=== PATIENT | female | born 1965 | race Caucasian/White ===

== ENCOUNTER → 2016-03-11 | Outpatient (CLI) | payer MEDICARE, OTHER ==
--- NOTE | 2016-03-11 14:55 | US ---
EXAMINATION TYPE: US kidneys/renal and bladder DATE OF EXAM: 03/11/2016 1:40 PM COMPARISON: 08/07/2015 CLINICAL HISTORY: US. History of hydronephrosis EXAM MEASUREMENTS: Right Kidney: 10.6 x 4.9 x 4.5cm Left Kidney: 10.7 x 4.7 x 4.0cm Post Void Residual Volume: 270.4ml Right Kidney: moderate hydronephrosis Left Kidney: moderate hydronephrosis Bladder: irregular posterior wall as noted on prior exam Bilateral Jets seen: no Normal Post Void Residual: no IMPRESSION: 1. Moderate bilateral hydronephrosis improved relative to prior study. 2. Urinary bladder wall thickening. Normal Values: Renal Length = 9 - 12cm Bladder Wall: < 0.3cm
== END | disposition home or self-care (01) ==
LOC: RADUSWWP 13:12
PROVIDERS: ATTEND Urology
DX: N13.30 Unspecified hydronephrosis (principal); N32.89 Other specified disorders of bladder
CPT/HCPCS: 76770

== ENCOUNTER → 2016-09-08 | Outpatient (CLI) | payer MEDICARE, OTHER ==
--- NOTE | 2016-09-08 12:02 | US ---
EXAMINATION TYPE: US kidneys/renal and bladder DATE OF EXAM: 09/08/2016 COMPARISON: Recent renal ultrasound March 11, 2016 CLINICAL HISTORY: N13.30 HYDRONEPHROSIS. History of hydronephrosis EXAM MEASUREMENTS: Right Kidney: 11.0 x 5.4 x 4.8 cm Left Kidney: 10.8 x 5.2 x 4.4 cm Post Void Residual Volume: 278.3 mL Right Kidney: moderate hydronephrosis Left Kidney: moderate hydronephrosis Bladder: irregular posterior wall Bilateral Jets seen: yes Normal Post Void Residual: no There is persistent moderate right-sided pyelocaliectasis. There is persistent moderate left-sided p yelocaliectasis. No masses are identified on images saved. The urinary bladder is anechoic. Wall thi ckness is mildly thickened with irregularity redemonstrated. Bilateral ureteral jets are seen. After voiding significant amount of urine remains present, calculated volume is near 300 cc. IMPRESSION: Overall stable findings persistent moderate bilateral hydronephrosis and abnormal bladder wall and po st void residual. No significant change.
== END ==
LOC: RADUSWWP 11:26
PROVIDERS: ATTEND Surgery
DX: N13.30 Unspecified hydronephrosis (principal)
CPT/HCPCS: 76770

== ENCOUNTER → 2017-01-02 | Outpatient (CLI) | payer MEDICARE, OTHER ==
--- NOTE | 2017-01-04 10:16 | MM ---
Reason for exam: screening (asymptomatic). Last mammogram was performed 1 year ago. History: Patient is postmenopausal. Benign US biopsy breast VAD LT of the left breast, January 28, 2015. Benign US RT VAD breast biopsy of the right breast, May 03, 2011. Benign US LT VAD breast biopsy of the left breast, May 03, 2011. Reductions of both breasts, 1996. Took hormonal contraceptives for 6 months beginning at age 15. Physical Findings: A clinical breast exam by your physician is recommended on an annual basis and results should be correlated with mammographic findings. MG 3D Screening Mammo W/Cad Bilateral CC and MLO view(s) were taken. Prior study comparison: January 01, 2016, bilateral MG screening mammo w CAD. August 07, 2015, left breast MG 3d diag mammo w/cad LT. The breast tissue is heterogeneously dense. This may lower the sensitivity of mammography. Previous mammotome biopsy in the right breast and in the left breast x 2. There is chronic nodularity bilaterally. No significant changes when compared with prior studies. ASSESSMENT: Benign, BI-RAD 2 RECOMMENDATION: Routine screening mammogram of both breasts in 1 year.
== END | disposition home or self-care (01) ==
LOC: RADMAMWWP 09:49
PROVIDERS: ATTEND Family Medicine
DX: Z12.31 Encounter for screening mammogram for malignant neoplasm of breast (principal)
CPT/HCPCS: 77063; G0202

== ENCOUNTER 2017-03-14 07:10 | Day surgery (SDC) | payer MEDICARE, OTHER ==
[2017-03-13 09:13] VITALS: BMI 29.6
[~2017-03-14 07:10] MED LIST: LACTATED RINGERS 1,000 ML IV SCH
[2017-03-14 08:01] VITALS: TEMP 98.3
[2017-03-14] MEDS ORDERED: LIDOCAINE 1% 20 ML VIAL (10MG/ML) FOR IV START INTRADERMA ONE (08:08)
[2017-03-14] MEDS ORDERED: PROPOFOL 10 MG/ML 20 ML VIAL IV ONE (08:10)
[2017-03-14] MEDS ORDERED: LIDOCAINE 1% INJ 10MG/ML (20 ML MDV) ONE (08:10)
[2017-03-14] MEDS ORDERED: MIDAZOLAM 2 MG/2 ML VIAL ONE (08:10)
[2017-03-14 08:14] LABS: Glucose,Whole Blood 119 mg/dL (75-99)
--- NOTE | 2017-03-14 08:30 | P.OP ---
Date of Procedure: 03/14/17 Preoperative Diagnosis: Prior history of sigmoid polyps, last scoped 2013 Postoperative Diagnosis: Extremely poor bowel prep with formed and solid stool Procedure(s) Performed: Attempted colonoscopy Anesthesia: MAC Surgeon: Chantal Quigley Estimated Blood Loss (ml): 0 IV fluids (ml): 100 Pathology: none sent Condition: stable Disposition: PACU Indications for Procedure: Patient history of sigmoid polyps Operative Findings: Very poor bowel prep with formed stool and stool coating randolph of bowel Description of Procedure: Patient was taken to the endoscopy suite and placed in the left lateral decubitus position. Following sedation a rectal examination was performed. Stool was noted to be present on the examining finger. An attempt was made to pass the scope into the rectum but there was stool present. I was able to manipulate the scope to approximately 20 cm however there was stool coating the bowel wall as well as formed stool which I could not navigate the scope around. Attempts were made to irrigate this area and there were large amounts of formed stool present. Therefore was determined that the mucosa could not be well evaluated in the procedure should be terminated and rescheduled. Impression/plan: 1. Prior history of sigmoid colon polyps 2. Extremely poor bowel prep Plan: 1. patient needs to have repeat prep prior to colonoscopy
--- NOTE | 2017-03-14 08:31 | P.DS ---
Providers Attending physician: Chantal Quigley Primary care physician: Gamal Stuart Plan - Discharge Summary New Discharge Prescriptions: No Action Escitalopram [Lexapro] 10 mg PO DAILY #15 tab fluPHENAZine DECANOATE [Prolixin Decanoate] 125 mg IM Q30D fluvoxaMINE MALEATE [fluvoxaMINE MALEATE] 50 mg PO DAILY LORazepam [Ativan] 0.5 mg PO DAILY Multivitamins, Thera [Multivitamin (formulary)] 1 tab PO DAILY cloZAPine [Clozaril] 300 mg PO HS Tamsulosin [Flomax] 0.4 mg PO DAILY Discharge Medication List Escitalopram [Lexapro] 10 mg PO DAILY #15 tab 02/23/15 [Rx] LORazepam [Ativan] 0.5 mg PO DAILY 01/21/16 [History] Multivitamins, Thera [Multivitamin (formulary)] 1 tab PO DAILY 01/21/16 [History ] cloZAPine [Clozaril] 300 mg PO HS 01/21/16 [History] fluPHENAZine DECANOATE [Prolixin Decanoate] 125 mg IM Q30D 01/21/16 [History] fluvoxaMINE MALEATE [fluvoxaMINE MALEATE] 50 mg PO DAILY 01/21/16 [History] Tamsulosin [Flomax] 0.4 mg PO DAILY 03/13/17 [History] Activity/Diet/Wound Care/Special Instructions: Do not drive today Patient is to redo her bowel prep and be rescheduled for colonoscopy Discharge Disposition: HOME SELF-CARE
[2017-03-14 09:01] VITALS: BP 139/95; PULSE 101; RESP 18
== END 2017-03-14 09:19 | disposition home or self-care (01) ==
LOC: ORWHC2ENDO 07:10
PROVIDERS: ATTEND Surgery
DX: Z12.11 Encounter for screening for malignant neoplasm of colon (principal); Z86.010 Personal history of colon polyps; D64.9 Anemia, unspecified; F17.210 Nicotine dependence, cigarettes, uncomplicated; F20.9 Schizophrenia, unspecified; F41.9 Anxiety disorder, unspecified; K21.9 Gastro-esophageal reflux disease without esophagitis; N39.46 Mixed incontinence; F31.9 Bipolar disorder, unspecified; E11.40 Type 2 diabetes mellitus with diabetic neuropathy, unspecified; Z88.8 Allergy status to other drugs, medicaments and biological substances; Z79.899 Other long term (current) drug therapy
CPT/HCPCS: J2250; J2001; J2704; G0104; 45378

== ENCOUNTER → 2018-03-05 | Outpatient (CLI) | payer MEDICARE ==
--- NOTE | 2018-03-11 10:35 | MM ---
Reason for exam: screening (asymptomatic). Last mammogram was performed 1 year and 2 months ago. History: Patient is postmenopausal. Benign US biopsy breast VAD LT of the left breast, January 28, 2015. Benign US RT VAD breast biopsy of the right breast, May 03, 2011. Benign US LT VAD breast biopsy of the left breast, May 03, 2011. Reductions of both breasts, 1996. Took hormonal contraceptives for 6 months beginning at age 15. MG Screening Mammo w CAD Bilateral CC and MLO view(s) were taken. Prior study comparison: January 02, 2017, bilateral MG 3d screening mammo w/cad. January 01, 2016, bilateral MG screening mammo w CAD. The breast tissue is heterogeneously dense. This may lower the sensitivity of mammography. Bilataral excisional biopsies. Chronic nodularity bilaterally. No significant changes when compared with prior studies. ASSESSMENT: Benign, BI-RAD 2 RECOMMENDATION: Routine screening mammogram of both breasts in 1 year.
== END | disposition home or self-care (01) ==
LOC: RADMAMWWP 14:32
PROVIDERS: ATTEND Family Medicine
DX: Z12.31 Encounter for screening mammogram for malignant neoplasm of breast (principal)
CPT/HCPCS: 77067

== ENCOUNTER → 2018-07-25 | Outpatient (CLI) | payer MEDICARE ==
--- NOTE | 2018-07-25 15:11 | US ---
EXAMINATION TYPE: US kidneys/renal and bladder DATE OF EXAM: 07/25/2018 COMPARISON: US 2017 CLINICAL HISTORY: N39.0 urinary tract infection. EXAM MEASUREMENTS: Right Kidney: 11.5 x 5.5 x 5.4 cm Left Kidney: 11.7 x 5.0 x 4.6 cm Post Void Residual Volume: 506.1 mL Right Kidney: Decreased cortex, medial, upper pole cyst = 0.8 x 0.8 x 0.9 cm, mild/moderate hydroneph rosis Left Kidney: Decreased renal cortex. mild/moderate hydronephrosis Bladder: posterior wall thickening = 0.7 cm, large amount left post void. Bilateral Jets seen: Yes Normal Post Void Residual: No No nephrolithiasis is seen. No masses are identified. The urinary bladder is anechoic. Bilateral ureteral jets are seen. IMPRESSION: 1. [id number] bilateral hydronephrosis. 2. Simple cyst right kidney.
== END | disposition home or self-care (01) ==
LOC: RADUSWWP 13:13
PROVIDERS: ATTEND Urology
DX: N28.1 Cyst of kidney, acquired (principal); N13.30 Unspecified hydronephrosis
CPT/HCPCS: 76770

== ENCOUNTER → 2019-01-11 | Outpatient (CLI) | payer MEDICARE ==
--- NOTE | 2019-01-12 15:10 | US ---
EXAMINATION TYPE: US kidneys/renal and bladder DATE OF EXAM: 01/11/2019 COMPARISON: NONE CLINICAL HISTORY: N18.9 CKD. CKD EXAM MEASUREMENTS: Right Kidney: 9.6 x 4.7 x 4.0 cm Left Kidney: 8.8 x 3.2 x 2.8 cm Right Kidney: Cystic area upper pole 1.3 x 1.0 x 1.0 cm. Moderate hydronephrosis seen. Left Kidney: Moderate hydronephrosis seen. Bladder: Anechoic . Urinary bladder wall thickening up to 9 mm. Bilateral Jets seen: Yes No nephrolithiasis is seen. The urinary bladder is anechoic. Bilateral ureteral jets are seen. IMPRESSION: 1. Persistent moderate bilateral hydronephrosis, similar in degree to the prior. 2. Urinary bladder wall thickening up to 9 mm. Correlate with urinalysis. 3. Benign-appearing right renal cyst is again noted.
== END | disposition home or self-care (01) ==
LOC: RADUSWWP 16:14
PROVIDERS: ATTEND Urology
DX: N13.30 Unspecified hydronephrosis (principal); N32.89 Other specified disorders of bladder; N18.9 Chronic kidney disease, unspecified
CPT/HCPCS: 76770

== ENCOUNTER → 2019-03-27 | Outpatient (CLI) | payer MEDICARE ==
--- NOTE | 2019-03-27 14:33 | US ---
EXAMINATION TYPE: US kidneys/renal and bladder DATE OF EXAM: 03/27/2019 COMPARISON: NONE CLINICAL HISTORY: N39.0 urinary tract infection, hydronephrosis. Patient states renal cyst was biopsied and "disappeared" with the biopsy. EXAM MEASUREMENTS: Right Kidney: 10.0 x 5.0 x 4.4 cm Left Kidney: 9.6 x 4.3 x 4.4 cm Right Kidney: Moderate right hydronephrosis. Lobular contour is noted. Left Kidney: Moderate left hydronephrosis. Cortical renal thinning and lobular contour. Bladder: Urinary bladder wall thickening diffusely measuring up to 7 mm. Irregularity of the urinary bladder wall is seen dependently such as on image 26/54. IMPRESSION: Increasing irregularity and thickening of the urinary bladder randolph. Direct visualization is recommen ded as there is bilateral persistent moderate hydronephrosis.
== END | disposition home or self-care (01) ==
LOC: RADUSWWP 13:20
PROVIDERS: ATTEND Urology
DX: N13.30 Unspecified hydronephrosis (principal); N32.89 Other specified disorders of bladder
CPT/HCPCS: 76770

== ENCOUNTER → 2019-04-19 | Outpatient (CLI) | payer MEDICARE ==
--- NOTE | 2019-04-22 13:15 | MM ---
Reason for exam: screening (asymptomatic). Last mammogram was performed 1 year and 1 month ago. History: Patient is postmenopausal. Benign US biopsy breast VAD LT of the left breast, January 28, 2015. Benign US RT VAD breast biopsy of the right breast, May 03, 2011. Benign US LT VAD breast biopsy of the left breast, May 03, 2011. Reductions of both breasts, 1996. Took hormonal contraceptives for 6 months beginning at age 15. Physical Findings: A clinical breast exam by your physician is recommended on an annual basis and results should be correlated with mammographic findings. MG Screening Mammo w CAD Bilateral CC and MLO view(s) were taken. Prior study comparison: March 05, 2018, bilateral MG screening mammo w CAD. January 02, 2017, bilateral MG 3d screening mammo w/cad. The breast tissue is heterogeneously dense. This may lower the sensitivity of mammography. Previous mammotome biopsy in the right and left breast. There is chronic nodularity bilaterally. No significant changes when compared with prior studies. ASSESSMENT: Benign, BI-RAD 2 RECOMMENDATION: Routine screening mammogram of both breasts in 1 year.
== END | disposition home or self-care (01) ==
LOC: RADMAMWWP 11:08
PROVIDERS: ATTEND Family Medicine
DX: Z12.31 Encounter for screening mammogram for malignant neoplasm of breast (principal)
CPT/HCPCS: 77067

== ENCOUNTER → 2019-10-14 | Outpatient (CLI) | payer MEDICARE | END | disposition home or self-care (01) | LOC: LABWHC1 12:12 | PROVIDERS: ATTEND Family Medicine | DX: Z20.828 Contact with and (suspected) exposure to other viral communicable diseases (principal) | CPT/HCPCS: U0003; C9803 ==

== ENCOUNTER → 2019-12-03 | Outpatient (CLI) | payer MEDICARE | END | disposition home or self-care (01) | LOC: LABWHC1 09:36 | PROVIDERS: ATTEND Family Medicine | DX: R05 Cough (principal); R06.02 Shortness of breath; R19.7 Diarrhea, unspecified | CPT/HCPCS: U0003; C9803 ==

== ENCOUNTER → 2020-06-30 | Outpatient (CLI) | payer MEDICARE ==
--- NOTE | 2020-07-01 10:47 | MM ---
Reason for exam: screening (asymptomatic). Last mammogram was performed 1 year and 2 months ago. History: Patient is postmenopausal. Benign US biopsy breast VAD LT of the left breast, January 28, 2015. Benign US RT VAD breast biopsy of the right breast, May 03, 2011. Benign US LT VAD breast biopsy of the left breast, May 03, 2011. Reductions of both breasts, 1996. Took hormonal contraceptives for 6 months beginning at age 15. Physical Findings: A clinical breast exam by your physician is recommended on an annual basis and results should be correlated with mammographic findings. MG Screening Mammo w CAD Bilateral CC and MLO view(s) were taken. Prior study comparison: April 19, 2019, bilateral MG screening mammo w CAD. March 05, 2018, bilateral MG screening mammo w CAD. The breast tissue is heterogeneously dense. This may lower the sensitivity of mammography. There are benign appearing round calcifications bilaterally. Previous mammotome biopsy in the right breast and left breast x 2. There is no discrete abnormality. ASSESSMENT: Benign, BI-RAD 2 RECOMMENDATION: Routine screening mammogram of both breasts in 1 year.
== END | disposition home or self-care (01) ==
LOC: RADMAMWWP 12:36
PROVIDERS: ATTEND Family Medicine
DX: Z12.31 Encounter for screening mammogram for malignant neoplasm of breast (principal); Z78.0 Asymptomatic menopausal state
CPT/HCPCS: 77067

== ENCOUNTER → 2020-07-17 | Outpatient (CLI) | payer MEDICARE ==
--- NOTE | 2020-07-17 16:28 | XR ---
EXAMINATION TYPE: XR chest 2V DATE OF EXAM: 07/17/2020 COMPARISON: NONE HISTORY: Shortness of breath TECHNIQUE: Frontal and lateral views of the chest are obtained. FINDINGS: Scattered senescent parenchymal changes noted. Hyperinflation compatible with COPD. No evidence for infiltrate. No evidence for atelectasis. Heart size is stable. Mediastinal structures are stable and grossly unremarkable. No evidence for hilar prominence. Degenerative changes dorsal spine. IMPRESSION: 1. No evidence for acute pulmonary disease.
== END | disposition home or self-care (01) ==
LOC: RADXRMAIN 15:54
PROVIDERS: ATTEND Family Medicine
DX: R06.02 Shortness of breath (principal)
CPT/HCPCS: 71046

== ENCOUNTER → 2020-07-21 | Outpatient (CLI) | payer MEDICARE ==
[2020-07-21 17:27] LABS: Calcium 8.8 mg/dL (8.4-10.2); Potassium 3.7 mmol/L (3.5-5.1)
--- NOTE | 2020-07-22 08:13 | CT ---
EXAMINATION TYPE: CT angio chest DATE OF EXAM: 07/21/2020 COMPARISON: Radiograph 07/17/2020 HISTORY: 54-year-old female SOB TECHNIQUE: Contiguous axial scanning of the chest performed with IV Contrast, patient injected with 5 4cc mL of Isovue 370. Coronal/sagittal MIP reconstructions performed. CT DLP: 397.1 mGycm Automated exposure control for dose reduction was used. FINDINGS: Suggestion of a large 2.5 cm nodule within the right lobe of the thyroid gland. Dedicated thyroid ult rasound recommended to further evaluate. Heart normal size with trace pericardial effusion measuring 5 mm thick. No flattening of the interven tricular septum reflux of contrast into the hepatic veins. Aorta normal caliber with conventional arch vessel branching anatomy. No thoracic lymphadenopathy by CT size criteria. Satisfactory opacification of the pulmonary arterial system. The exam is positive for pulmonary embol i extending throughout the right upper, middle, and lower lobar pulmonary arteries and into some of t he segmental branches. Further extension into some of the subsegmental branches of the right upper lo be. Trace embolic material on the left within a segmental branch of the left upper lobe, axial image 39 a nd also basilar left lower lobe, axial image 55 and 63. Mild diffuse bronchial wall thickening. No consolidation or pleural effusion. Visualized upper abdomen shows an anterior splenule. Bones: Old left-sided rib fracture deformities. IMPRESSION: 1. EXAM POSITIVE FOR PULMONARY EMBOLI. FAIRLY MODERATE TO HEAVY BURDEN ON THE RIGHT INVOLVING ALL OF THE LOBAR ARTERIAL BRANCHES EXTENDING INTO SEGMENTAL BRANCHES. TRACE BURDEN ON THE LEFT. NO CT EVIDEN CE FOR RIGHT HEART STRAIN. 2. MILD DIFFUSE BRONCHIAL WALL THICKENING WHICH MAY BE SEEN WITH BRONCHITIS OR CHRONIC ASTHMA. 3. A 2.5 CM RIGHT THYROID GLAND NODULE. DEDICATED THYROID ULTRASOUND COULD FURTHER EVALUATE. 4. TRACE PERICARDIAL EFFUSION MEASURING 5 MM THICK. A Red level critical message alert has been initiated for Gamal Stuart DO via the [employer] Critical Results System on 07/22/2020 8:10 AM. This message alert has been sent to Gamal Stuart DO via the preferences provided by the clinician for the receipt of Radiology Critical Findings. [id number].
== END | disposition home or self-care (01) ==
LOC: RADCTMAIN 16:15
PROVIDERS: ATTEND Family Medicine
DX: I26.99 Other pulmonary embolism without acute cor pulmonale (principal); I31.3 Pericardial effusion (noninflammatory); E04.1 Nontoxic single thyroid nodule
CPT/HCPCS: 80048; 71275; 36415; Q9967

== ENCOUNTER 2020-07-22 09:13 | Inpatient (IN) | payer MEDICARE, OTHER ==
[2020-07-22] MEDS ORDERED: HEPARIN SODIUM 1,000 UN/ML (10ML VL) IV PRN (09:21)
[2020-07-22] MEDS ORDERED: HEPARIN SODIUM 1,000 UN/ML (10ML VL) IV ONE (09:21)
--- NOTE | 2020-07-22 09:38 | ED ---
General Adult HPI - General Chief complaint: Recheck/Abnormal Lab/Rx Stated complaint: Pulmonary Aneurysm Time Seen by Provider: 07/22/20 09:19 Source: patient Mode of arrival: ambulatory Limitations: no limitations - History of Present Illness Initial comments: Dictation was produced using NPTV dictation software. please excuse any grammatical, word or spelling errors. Chief Complaint: 54-year-old female with past medical history of diabetes presents emergency department for abnormal CT History of Present Illness: This 54-year-old female she had a CT ordered by primary care physician. She went today to get the scan. She was told to come to the emergency department for pulmonary embolism. Patient states she's been short of breath for the last 2 months. She denies any lower extremity symptoms. Patient's primary care physician ordered a computed tomography scan of the chest yesterday. She went for the scan today was found to have pulmonary embolus. Patient states she short of breath denies any chest pain. Patient denies ever having had DVT or PE in the past. The ROS documented in this emergency department record has been reviewed and confirmed by me. Those systems with pertinent positive or negative responses have been documented in the HPI. All other systems are other negative and/or noncontributory. PHYSICAL EXAM: General Impression: Alert and oriented x3, mildly dyspneic HEENT: Normocephalic atraumatic, extra-ocular movements intact, pupils equal and reactive to light bilaterally, mucous membranes moist. Cardiovascular: Heart regular rate and rhythm Chest: Able to complete full sentences, no retractions, no tachypnea Abdomen: abdomen soft, non-tender, non-distended, no organomegaly Musculoskeletal: Pulses present and equal in all extremities, no peripheral edema Motor: no focal deficits noted Neurological: CN II-XII grossly intact, no focal motor or sensory deficits noted Skin: Intact with no visualized rashes Psych: Normal affect and mood ED course: 54-year-old female presents with outpatient computed tomography scan showing bilateral pulmonary emboli. Vital signs upon arrival shows heart rate of 125, rest of vital signs within acceptable limits. CT films show that there is moderate to heavy burden of the right and trace burden on the left. No CT evidence to suggest right heart strain. Lavatory evaluation obtained. CBC, coag panel, metabolic panel is unremarkable. Troponin is negative. Clinical presentation consistent with PE. She does not have signs or symptoms of submassive PE. No heart strain seen on CT, negative troponin she is not hypertensive. Patient will be admitted to cardiac telemetry. Case discussed with Dr. baker from [facility] hospitalist group. Pulmonology will be on consult. Patient started on heparin. She will be admitted for medical monitoring and anticoagulation. EKG interpretation: Ventricular rate 116, sinus tachycardia,. Interval 134, QRS 84, QTC 489. No DE prolongation, no QTC prolongation, no ST or T-wave changes no heriberto. - Related Data Home Medications Medication Instructions Recorded Confirmed LORazepam [Ativan] 0.5 mg PO TID PRN 01/21/16 07/22/20 cloZAPine [Clozaril] 200 mg PO HS 01/21/16 07/22/20 fluPHENAZine decanoate [Prolixin 50 mg IM Q14D 01/21/16 07/22/20 Decanoate] Tamsulosin [Flomax] 0.4 mg PO DAILY 03/13/17 07/22/20 Acetaminophen Tab [Tylenol] 650 mg PO Q4H PRN 07/22/20 07/22/20 Budesonide/Formoterol Fumarate 2 puff INHALATION RT-BID 07/22/20 07/22/20 [Symbicort 160-4.5 Mcg Inhaler] Cholecalciferol [Vitamin D3 (25 50 mcg PO DAILY 07/22/20 07/22/20 Mcg = 1000 Iu)] Fenofibrate 160 mg PO DAILY 07/22/20 07/22/20 Glimepiride [Amaryl] 4 mg PO DAILY 07/22/20 07/22/20 Ibuprofen [Motrin Ib] 200 - 400 mg PO Q8H PRN 07/22/20 07/22/20 Ipratropium/Albuter 20-100Mcg 1 puff INHALATION RT-QID 07/22/20 07/22/20 [Combivent Respimat 20-100Mcg Inhaler] Omeprazole 20 mg PO HS 07/22/20 07/22/20 fluvoxaMINE MALEATE [Fluvoxamine 100 mg PO HS 07/22/20 07/22/20 Maleate] metFORMIN HCL ER [Glucophage Xr] 500 mg PO BID 07/22/20 07/22/20 Allergies Allergy/AdvReac Type Severity Reaction Status Date / Time haloperidol [From Haldol] AdvReac Muscles Verified 07/22/20 10:16 freeze up in arms and hands haloperidol lactate AdvReac Muscles Verified 07/22/20 10:16 [From Haldol] freeze up in arms and hands Review of Systems ROS Statement: Those systems with pertinent positive or pertinent negative responses have been documented in the HPI. ROS Other: All systems not noted in ROS Statement are negative. Past Medical History Past Medical History: Diabetes Mellitus, GERD/Reflux, Osteoarthritis (OA) Additional Past Medical History / Comment(s): Hx of colon polyps, states borderline diabetic, neuorgenic bladder, anemia, self caths at home, History of Any Multi-Drug Resistant Organisms: None Reported Past Surgical History: Back Surgery, Breast Surgery, Ear Surgery Additional Past Surgical History / Comment(s): hunter breast reduction, breast biopsy, bladder stimulator implant, skin grafts to ear Past Anesthesia/Blood Transfusion Reactions: No Reported Reaction Past Psychological History: Bipolar, Depression, Schizoaffective Disorder Smoking Status: Current every day smoker Past Alcohol Use History: None Reported Past Drug Use History: None Reported - Past Family History Father Family Medical History: Cancer Additional Family Medical History / Comment(s): lung Sister(s) Family Medical History: Cancer Additional Family Medical History / Comment(s): ovarian General Exam Limitations: no limitations Course Vital Signs 07/22/20 07/22/20 09:14 09:58 Temperature 98.0 F Pulse Rate 125 H Respiratory 18 18 Rate Blood Pressure 132/91 O2 Sat by Pulse 97 Oximetry Medical Decision Making - Lab Data Result diagrams: 07/22/20 09:41 07/22/20 09:41 Lab Results 07/22/20 07/22/20 07/22/20 Range/Units 09:41 09:41 09:41 WBC 4.2 (3.8-10.6) k/uL RBC 3.91 (3.80-5.40) m/uL Hgb 11.2 L (11.4-16.0) gm/dL Hct 32.4 L (34.0-46.0) % MCV 82.9 (80.0-100.0) fL MCH 28.6 (25.0-35.0) pg MCHC 34.5 (31.0-37.0) g/dL RDW 13.6 (11.5-15.5) % Plt Count 163 (150-450) k/uL MPV 8.7 Neutrophils % 72 % Lymphocytes % 22 % Monocytes % 4 % Eosinophils % 0 % Basophils % 0 % Neutrophils # 3.0 (1.3-7.7) k/uL Lymphocytes # 0.9 L (1.0-4.8) k/uL Monocytes # 0.2 (0-1.0) k/uL Eosinophils # 0.0 (0-0.7) k/uL Basophils # 0.0 (0-0.2) k/uL PT 9.9 (9.0-12.0) sec INR 0.9 (<1.2) APTT 22.2 (22.0-30.0) sec Sodium 136 L (137-145) mmol/L Potassium 4.2 (3.5-5.1) mmol/L Chloride 102 (98-107) mmol/L Carbon Dioxide 27 (22-30) mmol/L Anion Gap 7 mmol/L BUN 25 H (7-17) mg/dL Creatinine 1.14 H (0.52-1.04) mg/dL Est GFR (CKD-EPI)AfAm 63 (>60 ml/min/1.73 sqM) Est GFR (CKD-EPI)NonAf 54 (>60 ml/min/1.73 sqM) Glucose 250 H (74-99) mg/dL POC Glucose (mg/dL) (75-99) mg/dL POC Glu Negative Cleaner ID Calcium 9.0 (8.4-10.2) mg/dL Troponin I (0.000-0.034) ng/mL 07/22/20 07/22/20 Range/Units 09:41 10:01 WBC (3.8-10.6) k/uL RBC (3.80-5.40) m/uL Hgb (11.4-16.0) gm/dL Hct (34.0-46.0) % MCV (80.0-100.0) fL MCH (25.0-35.0) pg MCHC (31.0-37.0) g/dL RDW (11.5-15.5) % Plt Count (150-450) k/uL MPV Neutrophils % % Lymphocytes % % Monocytes % % Eosinophils % % Basophils % % Neutrophils # (1.3-7.7) k/uL Lymphocytes # (1.0-4.8) k/uL Monocytes # (0-1.0) k/uL Eosinophils # (0-0.7) k/uL Basophils # (0-0.2) k/uL PT (9.0-12.0) sec INR (<1.2) APTT (22.0-30.0) sec Sodium (137-145) mmol/L Potassium (3.5-5.1) mmol/L Chloride (98-107) mmol/L Carbon Dioxide (22-30) mmol/L Anion Gap mmol/L BUN (7-17) mg/dL Creatinine (0.52-1.04) mg/dL Est GFR (CKD-EPI)AfAm (>60 ml/min/1.73 sqM) Est GFR (CKD-EPI)NonAf (>60 ml/min/1.73 sqM) Glucose (74-99) mg/dL POC Glucose (mg/dL) 258 H (75-99) mg/dL POC Glu Negative Cleaner ID Radha Gill Calcium (8.4-10.2) mg/dL Troponin I <0.012 (0.000-0.034) ng/mL Critical Care Time Critical Care Time: Yes Total Critical Care Time: 33 Disposition Clinical Impression: Pulmonary embolism Disposition: ADMITTED IP TO THIS [facility] Condition: Critical Referrals: Gamal Stuart DO [Primary Care Provider] - 1-2 days
[2020-07-22 09:49] LABS: Basophils % (A) 0 %; Eosinophils % (A) 0 %; HCT 32.4 % (34.0-46.0); HGB 11.2 gm/dL (11.4-16.0); Lymphocytes # (A) 0.9 k/uL (1.0-4.8); Lymphocytes % (A) 22 %; MCH 28.6 pg (25.0-35.0); MCHC 34.5 g/dL (31.0-37.0); MCV 82.9 fL (80.0-100.0); Mean Platelet Volume 8.7; Monocytes # (A) 0.2 k/uL (0-1.0); Monocytes % (A) 4 %; Neutrophils % (A) 72 %; Platelet Count 163 k/uL (150-450); RBC 3.91 m/uL (3.80-5.40); RDW 13.6 % (11.5-15.5); WBC 4.2 k/uL (3.8-10.6)
[2020-07-22] MEDS: HEPARIN SOD,PORK IN 0.45% NACL 25,000 UNIT in 0.45% NACL 1 250ML.BAG IV SCH (09:49)
[2020-07-22 10:01] LABS: INR 0.9 (<1.2); Partial Thromboplastin Time 22.2 sec (22.0-30.0); Potassium 4.2 mmol/L (3.5-5.1); Prothrombin Time 9.9 sec (9.0-12.0)
[2020-07-22 10:04] LABS: Glucose,Whole Blood 258 mg/dL (75-99)
[2020-07-22] MEDS ORDERED: ACETAMINOPHEN TAB 325 MG TAB PO PRN (10:28)
[2020-07-22] MEDS ORDERED: LORazepam 0.5 MG TAB PO PRN (10:28)
[2020-07-22] MEDS ORDERED: SODIUM CHLORIDE 0.9% 1,000 ML IV STA (11:07)
[2020-07-22] MEDS ORDERED: NALOXONE 0.4 MG/ML 1 ML VIAL IV PRN (11:11)
--- NOTE | 2020-07-22 11:57 | P.CNPUL ---
History of Present Illness Consult date: 07/22/20 Reason for consult: dyspnea, pulmonary embolism History of present illness: A 54-year-old female patient with known history of schizophrenia and bipolar disorder in addition to history of diabetes mellitus of a new onset was been having shortness of breath is April 2020. This was worked up through primary care physician. The patient is a chronic smoker. She was given Symbicort. She was given Combivent. She was given a nebulizer. All these treatments did not help. Ultimately the patient was given a CT angiogram that was done today and was positive for bilateral pulmonary embolism and most of the clot burden was in the right and less on the left. There was no evidence of any RV failure or strain pattern. The patient is hemodynamically stable. Pulse ox on room air is a 94%. She is having some mild sinus tachycardia at the rate of 120. She is on IV heparin for now. No swelling lower extremities. She had a fall yesterday and she has a bruise over the left side. No history of malignancy. No recent history of any orthopedic surgery as patient has been fully vaccinated for COVID-19. No other issues for now. No pleurisy. No hemoptysis. No personal or family history of DVT or pulmonary embolism. Review of Systems Constitutional: Reports as per HPI Eyes: denies as per HPI, denies blurred vision, denies bulging eye, denies decreased vision, denies diplopia, denies discharge, denies dry eye, denies irritation, denies itching, denies pain, denies photophobia, denies loss of peripheral vision, denies loss of vision, denies tunnel vision/blind spots Ears: bilateral: decreased hearing, deny: ear discharge, earache, tinnitus Ears, nose, mouth and throat: Reports as per HPI Breasts: absent: as per HPI, change in shape, gynecomastia, masses, nipple discharge, pain, skin changes, swelling Cardiovascular: Reports dyspnea on exertion Respiratory: Reports dyspnea Gastrointestinal: Reports as per HPI Genitourinary: Reports as per HPI Menstruation: Reports as per HPI Musculoskeletal: Reports as per HPI Musculoskeletal: absent: ankle pain, ankle stiffness, ankle swelling, as per HPI, elbow pain, elbow stiffness, elbow swelling, foot pain, foot stiffness, foot swelling, hand pain, hand stiffness, hand swelling, hip pain, hip stiffness, hip swelling, knee pain, knee stiffness, knee swelling, shoulder pain, shoulder stiffness, shoulder swelling, wrist pain, wrist stiffness, wrist swelling Integumentary: Reports as per HPI Neurological: Reports as per HPI Psychiatric: Reports as per HPI (Bipolar disorder, and schizophrenia) Endocrine: Reports as per HPI Hematologic/Lymphatic: Reports as per HPI Allergic/Immunologic: Reports as per HPI Past Medical History Past Medical History: Diabetes Mellitus, GERD/Reflux, Osteoarthritis (OA) Additional Past Medical History / Comment(s): Hx of colon polyps, states borderline diabetic, neuorgenic bladder, anemia, self caths at home, History of Any Multi-Drug Resistant Organisms: None Reported Past Surgical History: Back Surgery, Breast Surgery, Ear Surgery Additional Past Surgical History / Comment(s): hunter breast reduction, breast biopsy, bladder stimulator implant, skin grafts to ear Past Anesthesia/Blood Transfusion Reactions: No Reported Reaction Past Psychological History: Bipolar, Depression, Schizoaffective Disorder Smoking Status: Current every day smoker Past Alcohol Use History: None Reported Past Drug Use History: None Reported - Past Family History Father Family Medical History: Cancer Additional Family Medical History / Comment(s): lung Sister(s) Family Medical History: Cancer Additional Family Medical History / Comment(s): ovarian Medications and Allergies Home Medications Medication Instructions Recorded Confirmed Type LORazepam [Ativan] 0.5 mg PO TID PRN 01/21/16 07/22/20 History cloZAPine [Clozaril] 200 mg PO HS 01/21/16 07/22/20 History fluPHENAZine decanoate [Prolixin 50 mg IM Q14D 01/21/16 07/22/20 History Decanoate] Tamsulosin [Flomax] 0.4 mg PO DAILY 03/13/17 07/22/20 History Acetaminophen Tab [Tylenol] 650 mg PO Q4H PRN 07/22/20 07/22/20 History Budesonide/Formoterol Fumarate 2 puff INHALATION RT-BID 07/22/20 07/22/20 History [Symbicort 160-4.5 Mcg Inhaler] Cholecalciferol [Vitamin D3 (25 50 mcg PO DAILY 07/22/20 07/22/20 History Mcg = 1000 Iu)] Fenofibrate 160 mg PO DAILY 07/22/20 07/22/20 History Glimepiride [Amaryl] 4 mg PO DAILY 07/22/20 07/22/20 History Ibuprofen [Motrin Ib] 200 - 400 mg PO Q8H PRN 07/22/20 07/22/20 History Ipratropium/Albuter 20-100Mcg 1 puff INHALATION RT-QID 07/22/20 07/22/20 History [Combivent Respimat 20-100Mcg Inhaler] Omeprazole 20 mg PO HS 07/22/20 07/22/20 History fluvoxaMINE MALEATE [Fluvoxamine 100 mg PO HS 07/22/20 07/22/20 History Maleate] metFORMIN HCL ER [Glucophage Xr] 500 mg PO BID 07/22/20 07/22/20 History Allergies Allergy/AdvReac Type Severity Reaction Status Date / Time haloperidol [From Haldol] AdvReac Muscles Verified 07/22/20 10:16 freeze up in arms and hands haloperidol lactate AdvReac Muscles Verified 07/22/20 10:16 [From Haldol] freeze up in arms and hands Physical Exam Vitals: Vital Signs Temp Pulse Resp BP Pulse Ox 07/22/20 09:58 18 07/22/20 09:14 98.0 F 125 H 18 132/91 97 Intake and Output 07/21/20 07/22/20 07/22/20 22:59 06:59 14:59 Other: Weight 77.111 kg The patient appeared well nourished and normally developed. Vital signs as documented. Head exam is unremarkable. No scleral icterus or corneal arcus noted. Neck is without jugular venous distension, thyromegaly, or carotid bruits. Carotid upstrokes are brisk bilaterally. Lungs are clear to auscultation and percussion. Cardiac exam reveals the PMI to be normally sized and situated. Rhythm is regular. First and second heart sounds normal. No murmurs, rubs or gallops. Abdominal exam reveals normal bowel sounds, no masses, no organomegaly and no aortic enlargement. Extremities are nonedematous and both femoral and pedal pulses are normal.Examination of the skin revealed no evidence of significant rashes, suspicious appearing nevi or other concerning lesions.Neurologically, the patient is awake and alert and the patient does not have any focal neurological deficit. Cranial nerves are essentially intact. Results - Laboratory Findings CBC and BMP: 07/22/20 09:41 07/22/20 09:41 PT/INR, D-dimer PT 9.9 sec (9.0-12.0) 07/22/20 09:41 INR 0.9 (<1.2) 07/22/20 09:41 Abnormal lab findings: Abnormal Labs 07/22/20 07/22/20 07/22/20 09:41 09:41 10:01 Hgb 11.2 L Hct 32.4 L Lymphocytes # 0.9 L Sodium 136 L BUN 25 H Creatinine 1.14 H Glucose 250 H POC Glucose (mg/dL) 258 H - Diagnostic Findings Chest x-ray: image reviewed CT scan - chest: image reviewed Assessment and Plan Plan: 1 acute/subacute unprovoked pulmonary embolism, bilateral with clot burden being more on the right compared to the left. No evidence of any strain pattern based on CAT scan criteria. Hemodynamically stable. Oxygenation is adequate with a pulse of 93% on room air. No hemodynamic instability. No hypotension. The patient is having some mild sinus tachycardia. Currently on IV heparin. Clinically improving. 2 Shortness of breath secondary to above 3 smoker 4 schizophrenia/bipolar disorder 5 neurogenic bladder and the patient has a bladder stimulator and she is on tamsulosin and she undergoes self-catheterization 6 diabetes mellitus 7 history of back pain and the patient undergone previous laminectomy. 8 postoperative COVID-19 vaccination 9 recent fall with a bruise to the left lower extremity Plan Continue IV heparin Obtain Doppler of the lower extremities Echocardiogram to assess pulmonary hypertension and RV strain pattern No need for intra-arterial thrombolytic therapy at this point in time as the patient is hemodynamically stable without evidence of any significant RV dysfunction or strain pattern Smoking cessation counseling Resume home medications Outpatient PFT Anticoagulation will be essentially long-term as the patient is a unprovoked pulmonary embolism. This will be decided upon at the later stage on outpatient basis.
[2020-07-22] MEDS: IPRATROPIUM-ALBUTEROL 3 ML NEB INHALATION SCH ×3 (12:57→22:09)
--- NOTE | 2020-07-22 13:11 | US ---
EXAMINATION TYPE: US venous doppler duplex LE DATE OF EXAM: 07/22/2020 11:49 AM COMPARISON: NONE CLINICAL HISTORY: rule out DVT. Known PE. SIDE PERFORMED: Bilateral TECHNIQUE: The lower extremity deep venous system is examined utilizing real time linear array sonog fausto with graded compression, doppler sonography and color-flow sonography. VESSELS IMAGED: Common Femoral Vein Deep Femoral Vein Greater Saphenous Vein * Femoral Vein Popliteal Vein Small Saphenous Vein * Proximal Calf Veins (* superficial vessels) Right Leg: Negative for DVT Left Leg: Negative for DVT IMPRESSION: 1. No evidence of deep venous thrombosis in the lower extremity veins.
--- NOTE | 2020-07-22 14:34 | P.HPIM ---
History of Present Illness 54-year-old female patient was sent in by from PCPs office because of bilateral pulmonary embolism. Patient has been short of breath for since April much worse last Monday and patient has seen PCP and patient was treated with Symbicort and a nebulizer without any significant improvement in the angiogram of the chest was obtained which showed significant clot burden on the right side and little less on the left side patient doesn't have any chest pain there is no evidence of RV failure as strain on the computed tomography scan. Patient was saturating at 94% on room air. Patient does have sinus tachycardia. There is an inc idental finding of nodule in the thyroid for which I'm obtaining a TSH. Patient did receive Covid vaccine. Patient denied any recent travel patient is up-to-date with the [place] screening procedures patient denied any weight loss patient is a usual functional female without any recent surgery. Patient was also having dry cough. Review of Systems REVIEW OF SYSTEMS: CONSTITUTIONAL: No fever, no malaise, no fatigue. HEENT: No recent visual problems or hearing problems. Denied any sore throat. CARDIOVASCULAR: No chest pain, orthopnea, PND, no palpitations, no syncope. PULMONARY:no hemoptysis. GASTROINTESTINAL: No diarrhea, no nausea, no vomiting, no abdominal pain. NEUROLOGICAL: No headaches, no weakness, no numbness. HEMATOLOGICAL: Denies any bleeding or petechiae. GENITOURINARY: Denies any burning micturition, frequency, or urgency. MUSCULOSKELETAL/RHEUMATOLOGICAL: Denies any joint pain, swelling, or any muscle pain. ENDOCRINE: Denies any polyuria or polydipsia. The rest of the 14-point review of systems is negative. Past Medical History Past Medical History: Diabetes Mellitus, GERD/Reflux, Osteoarthritis (OA) Additional Past Medical History / Comment(s): Hx of colon polyps, states borderline diabetic, neuorgenic bladder, anemia, self caths at home, History of Any Multi-Drug Resistant Organisms: None Reported Past Surgical History: Back Surgery, Breast Surgery, Ear Surgery Additional Past Surgical History / Comment(s): hunter breast reduction, breast biopsy, bladder stimulator implant, skin grafts to ear Past Anesthesia/Blood Transfusion Reactions: No Reported Reaction Past Psychological History: Bipolar, Depression, Schizoaffective Disorder Smoking Status: Current every day smoker Past Alcohol Use History: None Reported Past Drug Use History: None Reported - Past Family History Father Family Medical History: Cancer Additional Family Medical History / Comment(s): lung Sister(s) Family Medical History: Cancer Additional Family Medical History / Comment(s): ovarian Medications and Allergies Home Medications Medication Instructions Recorded Confirmed Type LORazepam [Ativan] 0.5 mg PO TID PRN 01/21/16 07/22/20 History cloZAPine [Clozaril] 200 mg PO HS 01/21/16 07/22/20 History fluPHENAZine decanoate [Prolixin 50 mg IM Q14D 01/21/16 07/22/20 History Decanoate] Tamsulosin [Flomax] 0.4 mg PO DAILY 03/13/17 07/22/20 History Acetaminophen Tab [Tylenol] 650 mg PO Q4H PRN 07/22/20 07/22/20 History Budesonide/Formoterol Fumarate 2 puff INHALATION RT-BID 07/22/20 07/22/20 History [Symbicort 160-4.5 Mcg Inhaler] Cholecalciferol [Vitamin D3 (25 50 mcg PO DAILY 07/22/20 07/22/20 History Mcg = 1000 Iu)] Fenofibrate 160 mg PO DAILY 07/22/20 07/22/20 History Glimepiride [Amaryl] 4 mg PO DAILY 07/22/20 07/22/20 History Ibuprofen [Motrin Ib] 200 - 400 mg PO Q8H PRN 07/22/20 07/22/20 History Ipratropium/Albuter 20-100Mcg 1 puff INHALATION RT-QID 07/22/20 07/22/20 History [Combivent Respimat 20-100Mcg Inhaler] Omeprazole 20 mg PO HS 07/22/20 07/22/20 History fluvoxaMINE MALEATE [Fluvoxamine 100 mg PO HS 07/22/20 07/22/20 History Maleate] metFORMIN HCL ER [Glucophage Xr] 500 mg PO BID 07/22/20 07/22/20 History Allergies Allergy/AdvReac Type Severity Reaction Status Date / Time haloperidol [From Haldol] AdvReac Muscles Verified 07/22/20 10:16 freeze up in arms and hands haloperidol lactate AdvReac Muscles Verified 07/22/20 10:16 [From Haldol] freeze up in arms and hands Physical Exam Vitals: Vital Signs Temp Pulse Resp BP Pulse Ox 07/22/20 13:07 115 H 07/22/20 12:57 113 H 07/22/20 09:58 18 07/22/20 09:14 98.0 F 125 H 18 132/91 97 Intake and Output 07/21/20 07/22/20 07/22/20 22:59 06:59 14:59 Other: Weight 77.111 kg PHYSICAL EXAMINATION: GENERAL: The patient is alert and oriented x3, not in any acute distress. Well developed, well nourished. HEENT: Pupils are round and equally reacting to light. EOMI. No scleral icterus. No conjunctival pallor. Normocephalic, atraumatic. No pharyngeal erythema. No thyromegaly. CARDIOVASCULAR: S1 and S2 present. No murmurs, rubs, or gallops. PULMONARY: Chest is clear to auscultation, no wheezing or crackles. ABDOMEN: Soft, nontender, nondistended, normoactive bowel sounds. No palpable organomegaly. MUSCULOSKELETAL: No joint swelling or deformity. EXTREMITIES: No cyanosis, clubbing, or pedal edema. NEUROLOGICAL: Gross neurological examination did not reveal any focal deficits. SKIN: Patient had a large bruise in the posterior aspect and lateral aspect of the thigh just below the buttock area from recent fall Results CBC & Chem 7: 07/22/20 09:41 07/22/20 09:41 Labs: Abnormal Lab Results - Last 24 Hours (Table) 07/22/20 07/22/20 07/22/20 Range/Units 09:41 09:41 10:01 Hgb 11.2 L (11.4-16.0) gm/dL Hct 32.4 L (34.0-46.0) % Lymphocytes # 0.9 L (1.0-4.8) k/uL Sodium 136 L (137-145) mmol/L BUN 25 H (7-17) mg/dL Creatinine 1.14 H (0.52-1.04) mg/dL Glucose 250 H (74-99) mg/dL POC Glucose (mg/dL) 258 H (75-99) mg/dL Assessment and Plan Plan: -Acute/subacute unprovoked BP: Echocardiac gram is being obtained patient will be continued on IV heparin probably transition to Eliquis tomorrow patient is clinically doing well at this time patient is not requiring any oxygen -Cough and shortness of breath secondary to assessment 1 Have nicotine use: Counseling was provided -Is a dental finding of nodule in the thyroid I'll obtain ultrasound of the thyroid and TSH levels -Sinus tachycardia due to PE -Type 2 diabetes mellitus -Chronic back pain
[2020-07-22 15:44] VITALS: RESP 18
[2020-07-22] MEDS: SODIUM CHLORIDE 0.9% 1,000 ML IV SCH (16:00)
[2020-07-22 16:52] LABS: Glucose,Whole Blood 139 mg/dL (75-99)
[2020-07-22] MEDS ORDERED: PANTOPRAZOLE 40 MG TABLET PO SCH (18:00)
[2020-07-22] MEDS ORDERED: cloZAPine 100 MG TAB PO SCH (18:00)
[2020-07-22] MEDS ORDERED: SYMBICORT 160-4.5 MCG INHALER INHALATION SCH (20:00)
[2020-07-22 20:09] LABS: Glucose,Whole Blood 223 mg/dL (75-99)
[2020-07-22] MEDS: INSULIN ASPART (NovoLOG) 100 UNIT/ML VIAL SQ SCH (20:55)
[2020-07-23] MEDS: HEPARIN SOD,PORK IN 0.45% NACL 25,000 UNIT in 0.45% NACL 1 250ML.BAG IV SCH (05:10)
[2020-07-23 06:17] LABS: Glucose,Whole Blood 181 mg/dL (75-99)
[2020-07-23] MEDS: INSULIN ASPART (NovoLOG) 100 UNIT/ML VIAL SQ SCH ×2 (06:43→12:29)
[2020-07-23] MEDS: SODIUM CHLORIDE 0.9% 1,000 ML IV SCH ×2 (07:40→08:05)
[2020-07-23 08:00] VITALS: TEMP 97.9
[2020-07-23] MEDS: IPRATROPIUM-ALBUTEROL 3 ML NEB INHALATION SCH ×3 (08:57→16:12)
[2020-07-23] MEDS ORDERED: GLIMEPIRIDE 4 MG TAB PO SCH (09:00)
[2020-07-23] MEDS ORDERED: FENOFIBRATE 160 MG TAB PO SCH (09:00)
[2020-07-23] MEDS ORDERED: CHOLECALCIFEROL 25 MCG (1000 IU) TABLET PO SCH (09:00)
[2020-07-23] MEDS ORDERED: TAMSULOSIN 0.4 MG CAP.ER.24H PO SCH (09:00)
--- NOTE | 2020-07-23 11:58 | P.PN ---
Subjective Progress Note Date: 07/23/20 07/23/2020, the patient is being seen for a follow-up. The patient remains on room air oxygen with a pulse ox of 98%. She is hemodynamically stable. She continues to have some mild degree of sinus tachycardia. Echocardiogram was done and the results are still pending for now. Doppler of the lower extremity has been negative. The patient remains on IV heparin for now. No respiratory distress. No significant cough or sputum production. No hemoptysis. No pleurisy. She is hard of hearing. She is a poor historian in general. She has a long history of psychiatric disorder. She is negative and this was screened in the emergency department. She also has multiple comorbidities including sc hizophrenia/bipolar disorder. She has chronic urinary retention and there is a neurogenic bladder. She has also had a fall and she sustained a bruise to her left lower extremity and there is no evidence of any bleed or hematoma formation at this point in time. We'll transition this patient to long-term anticoagulation and we'll try to get approval for Room n Houseis Objective - Vital Signs Vital signs: Vital Signs Temp 97.9 F 07/23/20 07:57 Pulse 113 H 07/23/20 08:00 Resp 18 07/23/20 08:00 BP 134/75 07/23/20 07:57 Pulse Ox 98 07/23/20 07:57 Intake & Output 07/22/20 07/23/20 07/23/20 18:59 06:59 18:59 Intake Total 597.749 132.251 480 Output Total 072 915 2185 Balance -2.251 -367.749 -720 Weight 77.111 kg 78.2 kg Intake: Intake, IV Titration 117.749 132.251 Amount Heparin Sod,Pork in 0.45% 117.749 132.251 NaCl 25,000 unit In 0.45 % NaCl 1 250ml.bag @ 18 UNITS/KG/HR 13.88 mls/hr IV .Q18H1M [facility] Rx#: [id number] Oral 480 480 Output: Urine 888 [id number] Other: Voiding Method Bedside Commode Bedside Commode Bedside Commode # Voids 2 2 - Exam The patient appeared well nourished and normally developed. Vital signs as documented. Head exam is unremarkable. No scleral icterus or corneal arcus noted. Neck is without jugular venous distension, thyromegaly, or carotid bruits. Carotid upstrokes are brisk bilaterally. Lungs are clear to auscultation and percussion. Cardiac exam reveals the PMI to be normally sized and situated. Rhythm is regular. First and second heart sounds normal. No murmurs, rubs or gallops. Abdominal exam reveals normal bowel sounds, no masses, no organomegaly and no aortic enlargement. Extremities are nonedematous and both femoral and pedal pulses are normal.Examination of the skin revealed no evidence of significant rashes, suspicious appearing nevi or other concerning lesions.Neurologically, the patient is awake and alert and the patient does not have any focal neurological deficit. Cranial nerves are essentially intact. - Labs CBC & Chem 7: 07/22/20 09:41 07/22/20 09:41 Labs: Abnormal Lab Results - Last 24 Hours (Table) 07/22/20 07/22/20 07/22/20 Range/Units 16:51 17:10 20:08 APTT 74.4 H (22.0-30.0) sec POC Glucose (mg/dL) 139 H 223 H (75-99) mg/dL 07/23/20 07/23/20 Range/Units 00:44 06:16 APTT 54.3 H (22.0-30.0) sec POC Glucose (mg/dL) 181 H (75-99) mg/dL Assessment and Plan Plan: 1 acute/subacute unprovoked pulmonary embolism, bilateral with clot burden being more on the right compared to the left. No evidence of any strain pattern based on CAT scan criteria. Hemodynamically stable. Oxygenation is adequate with a pulse of 93% on room air. No hemodynamic instability. No hypotension. The patient is having some mild sinus tachycardia. Currently on IV heparin. Clinically improving. 2 Shortness of breath secondary to above 3 smoker 4 schizophrenia/bipolar disorder 5 neurogenic bladder and the patient has a bladder stimulator and she is on t amsulosin and she undergoes self-catheterization 6 diabetes mellitus 7 history of back pain and the patient undergone previous laminectomy. 8 postoperative COVID-19 vaccination 9 recent fall with a bruise to the left lower extremity Plan Clinically and hemodynamically stable at this point in time. There is some underlying sinus tachycardia that needs to be further monitored. Pulse ox is 97 -98% room in oxygen. Continue IV heparin, and obtain approval for Eliquis for long-term anticoagulat ion Obtain Doppler of the lower extremities and the results came back negative Echocardiogram to assess pulmonary hypertension and RV strain pattern, this has been completed and the echo results are still pending for now. No need for intra-arterial thrombolytic therapy at this point in time as the p atient is hemodynamically stable without evidence of any significant RV dysfunction or strain pattern Smoking cessation counseling Resume home medications Outpatient PFT Anticoagulation will be essentially long-term as the patient is a unprovoked pulmonary embolism. This will be decided upon at the later stage on outpatient basis.
--- NOTE | 2020-07-23 12:09 | P.PN ---
Subjective 54-year-old female patient was sent in by from PCPs office because of bilateral pulmonary embolism. Patient has been short of breath for since April much worse last Monday and patient has seen PCP and patient was treated with Symbicort and a nebulizer without any significant improvement in the angiogram of the chest was obtained which showed significant clot burden on the right side and little less on the left side patient doesn't have any chest pain there is no evidence of RV failure as strain on the computed tomography scan. Patient was saturating at 94% on room air. Patient does have sinus tachycardia. There is an incidental finding of nodule in the thyroid for which I'm obtaining a TSH. Patient did receive Covid vaccine. Patient denied any recent travel patient is up-to-date with the [place] screening procedures patient denied any weight loss patient is a usual functional female without any recent surgery. Patient was also having dry cough. 07/23/2020 patient is medically stable but had does can you to have sinus tachycardia. Patient was started on metoprolol patient was started on Eliquis by mouth twice a day and will be discharged today. We will verify the insurance coverage for Eliquis. PHYSICAL EXAMINATION: GENERAL: The patient is alert and oriented x3, not in any acute distress. Well developed, well nourished. HEENT: Pupils are round and equally reacting to light. EOMI. No scleral icterus. No conjunctival pallor. Normocephalic, atraumatic. No pharyngeal erythema. No thyromegaly. CARDIOVASCULAR: S1 and S2 present. No murmurs, rubs, or gallops. PULMONARY: Chest is clear to auscultation, no wheezing or crackles. ABDOMEN: Soft, nontender, nondistended, normoactive bowel sounds. No palpable o rganomegaly. MUSCULOSKELETAL: No joint swelling or deformity. EXTREMITIES: No cyanosis, clubbing, or pedal edema. NEUROLOGICAL: Gross neurological examination did not reveal any focal deficits. SKIN: Patient had a large bruise in the posterior aspect and lateral aspect of the thigh just below the buttock area from recent fall Assessment and Plan Plan: -Acute/subacute unprovoked pulmonary embolism: Patient is being discharged on Eliquis. Doppler bilateral lower extremity is not show any DVT echocardiac of is still pending although patient is medically stable at this time -Cough and shortness of breath secondary to assessment 1 - nicotine use: Counseling was provided -Incidental finding of nodule patient will benefit from a TSH and a thyroid ult rasound as an outpatient, TSH was ordered but results are pending -Sinus tachycardia due to PE -Type 2 diabetes mellitus -Chronic back pain Objective - Vital Signs Vital signs: Vital Signs Temp 97.9 F 07/23/20 07:57 Pulse 109 H 07/23/20 11:57 Resp 18 07/23/20 08:00 BP 134/75 07/23/20 07:57 Pulse Ox 98 07/23/20 07:57 Intake & Output 07/22/20 07/23/20 07/23/20 18:59 06:59 18:59 Intake Total 597.749 132.251 480 Output Total 080 001 5475 Balance -2.251 -367.749 -720 Weight 77.111 kg 78.2 kg Intake: Intake, IV Titration 117.749 132.251 Amount Heparin Sod,Pork in 0.45% 117.749 132.251 NaCl 25,000 unit In 0.45 % NaCl 1 250ml.bag @ 18 UNITS/KG/HR 13.88 mls/hr IV .Q18H1M [facility] Rx#: [id number] Oral 480 480 Output: Urine [id number] Other: Voiding Method Bedside Commode Bedside Commode Bedside Commode # Voids 2 2 - Labs CBC & Chem 7: 07/22/20 09:41 07/22/20 09:41 Labs: Abnormal Lab Results - Last 24 Hours (Table) 07/22/20 07/22/20 07/22/20 Range/Units 16:51 17:10 20:08 APTT 74.4 H (22.0-30.0) sec POC Glucose (mg/dL) 139 H 223 H (75-99) mg/dL 07/23/20 07/23/20 Range/Units 00:44 06:16 APTT 54.3 H (22.0-30.0) sec POC Glucose (mg/dL) 181 H (75-99) mg/dL
[2020-07-23] MEDS ORDERED: METOPROLOL TARTRATE 50 MG TAB PO SCH (12:15)
[2020-07-23] MEDS ORDERED: APIXABAN 5 MG TAB PO SCH (12:15)
[2020-07-23 12:21] LABS: Glucose,Whole Blood 231 mg/dL (75-99)
[2020-07-23 12:26] VITALS: BP 124/80; PULSE 120
--- NOTE | 2020-07-23 16:00 | ECHOF ---
Referral Reason:pulmonary embolism MEASUREMENTS -------- HEIGHT: 152.4 cm WEIGHT: 81.6 kg BP: IVSd: 1.2 cm (0.6 - 1.1) LVIDd: 3.7 cm (3.9 - 5.3) LVPWd: 1.3 cm (0.6 - 1.1) EDV(Teich): 58 ml IVSs: 1.3 cm LVIDs: 2.7 cm LVPWs: 1.8 cm %IVS Thck: 7 % ESV(Teich): 28 ml EF(Teich): 52 % %FS: 26 % SV(Teich): 30 ml RVIDd: 2.9 cm (< 3.3) LALs A4C: 4.7 cm LAAs A4C: 14.2 cm LAESV A-L A4C: 37 ml LAESV MOD A4C: 35 ml LALs A2C: 4.7 cm LAAs A2C: 16.0 cm LAESV A-L A2C: 46 ml LAESV MOD A2C: 44 ml LAESV(A-L): 41 ml LAESV Index (A-L): 23.03 ml/m Ao Diam: 2.8 cm (2.0 - 3.7) LA Diam: 3.6 cm (2.7 - 3.8) AV Cusp: 1.5 cm (1.5 - 2.6) TR Vmax: 2.76 m/s TR maxP.55 mmHg RAP: 5.00 mmHg RVSP: 35.55 mmHg FINDINGS -------- Resting tachycardia (HR>100bpm). This was a technically good study. LV size, wall thickness and systolic function are normal, with an EF greater than 55%. The left saray tricular size is normal. The right ventricle is normal in size. The left atrial size is normal. The right atrial size is normal. The aortic valve is trileaflet, and appears structurally normal. No aortic stenosis or regurgitation. Mild mitral regurgitation is present. Mild tricuspid regurgitation present. There is mild pulmonary hypertension. There is no pulmonic regurgitation present. There is a trivial pericardial effusion present. CONCLUSIONS -------- 1. LV size, wall thickness and systolic function are normal, with an EF greater than 55%. 2. The left ventricular size is normal. 3. The right ventricle is normal in size. 4. The left atrial size is normal. 5. The right atrial size is normal. 6. The aortic valve is trileaflet, and appears structurally normal. No aortic stenosis or regurgitati on. 7. Mild mitral regurgitation is present. 8. Mild tricuspid regurgitation present. 9. There is mild pulmonary hypertension. 10. There is a trivial pericardial effusion present. MACHINE SIZER: Candi Mackey RDCS
[2020-07-23 17:33] LABS: Hemoglobin A1C 10.1 % (4.0-6.0)
[2020-07-31] MEDS ORDERED: fluPHENAZine DECANOATE 25 MG/ML 5ML MDV IM SCH (09:00)
== END 2020-07-23 16:13 | disposition home or self-care (01) | DRG 176 ==
LOC: EC 09:13 → 3SCARD 11:11
PROVIDERS: ADMIT Internal Medicine; ATTEND Internal Medicine
DX: I26.99 Other pulmonary embolism without acute cor pulmonale (principal); E04.1 Nontoxic single thyroid nodule; E11.9 Type 2 diabetes mellitus without complications; F17.210 Nicotine dependence, cigarettes, uncomplicated; F25.9 Schizoaffective disorder, unspecified; F31.9 Bipolar disorder, unspecified; G89.29 Other chronic pain; H91.90 Unspecified hearing loss, unspecified ear; N31.9 Neuromuscular dysfunction of bladder, unspecified; S80.12XA Contusion of left lower leg, initial encounter; M19.90 Unspecified osteoarthritis, unspecified site; W19.XXXA Unspecified fall, initial encounter; Z79.01 Long term (current) use of anticoagulants; Z79.51 Long term (current) use of inhaled steroids; Z79.84 Long term (current) use of oral hypoglycemic drugs; M45.9 Ankylosing spondylitis of unspecified sites in spine; K21.9 Gastro-esophageal reflux disease without esophagitis; Z20.822 Contact with and (suspected) exposure to COVID-19; Z79.899 Other long term (current) drug therapy; Z86.010 Personal history of colon polyps; Z80.1 Family history of malignant neoplasm of trachea, bronchus and lung; Z80.41 Family history of malignant neoplasm of ovary; Z88.8 Allergy status to other drugs, medicaments and biological substances
CPT/HCPCS: 36415; 80048; 83036; 84484; 85025; 85610; 85730; 87635; 93005; 93306; 93970; 94640; 96374; 96375; 99291

== ENCOUNTER 2020-10-24 08:51 | Emergency (ER) | payer MEDICARE, OTHER ==
[2020-10-24 08:56] VITALS: BP 126/87; PULSE 132; RESP 20; TEMP 97.8
[2020-10-24 09:22] LABS: Glucose,Whole Blood 243 mg/dL (75-99)
[2020-10-24] MEDS ORDERED: SODIUM CHLORIDE 0.9% 500 ML 500 ML IV ONE (09:28)
[2020-10-24] MEDS ORDERED: SODIUM CHLORIDE 0.9% 1,000 ML IV ONE (09:28)
[2020-10-24 09:49] LABS: Basophils % (A) 0 %; Eosinophils % (A) 0 %; HCT 47.5 % (34.0-46.0); HGB 15.4 gm/dL (11.4-16.0); Lymphocytes # (A) 1.3 k/uL (1.0-4.8); Lymphocytes % (A) 19 %; MCH 28.7 pg (25.0-35.0); MCHC 32.4 g/dL (31.0-37.0); MCV 88.6 fL (80.0-100.0); Mean Platelet Volume 8.7; Monocytes # (A) 0.3 k/uL (0-1.0); Monocytes % (A) 4 %; Neutrophils # (A) 5.2 k/uL (1.3-7.7); Neutrophils % (A) 75 %; Platelet Count 213 k/uL (150-450); RBC 5.36 m/uL (3.80-5.40)
[2020-10-24 09:58] LABS: ALT 33 U/L (4-34); AST 44 U/L (14-36); African American GFR (CKD) 51 (>60 ml/min/1.73 sqM); Alcohol <10 mg/dL; Alkaline Phosphatase 57 U/L (38-126); Anion Gap 14 mmol/L; Blood Urea Nitrogen 25 mg/dL (7-17); Calcium 10.3 mg/dL (8.4-10.2); Carbon Dioxide 21 mmol/L (22-30); Chloride 106 mmol/L (98-107); Glucose 257 mg/dL (74-99); Magnesium 1.9 mg/dL (1.6-2.3); Non-African American GFR(CKD) 44 (>60 ml/min/1.73 sqM); Potassium 4.5 mmol/L (3.5-5.1); Sodium 141 mmol/L (137-145); Total Bilirubin 0.4 mg/dL (0.2-1.3); Total Protein 7.5 g/dL (6.3-8.2)
[2020-10-24 10:06] LABS: Appearance,Urine Turbid (Clear); Bacteria,Urine Many /hpf; Bilirubin,Urine Negative (Negative); Blood,Urine Large (Negative); Color,Urine Yellow; Glucose,Urine (UA) Negative (Negative); Ketones,Urine Negative (Negative); Leukocyte Esterase,Urine Large (Negative); Mucus,Urine Rare /hpf; Nitrite,Urine Negative (Negative); PH, Urine 5.5 (5.0-8.0); Protein,Urine 1+ (Negative); RBC,Urine >182 /hpf (0-5); Specific Gravity,Urine 1.012 (1.001-1.035); Squamous Epithelial Cell,Urine 25 /hpf (0-4); Urobilinogen,Urine <2.0 mg/dL (<2.0); WBC,Urine >182 /hpf (0-5)
--- NOTE | 2020-10-24 10:09 | ED ---
Psych HPI - General Chief Complaint: Psychiatric Symptoms Stated Complaint: med refill Time Seen by Provider: 10/24/20 09:17 Source: patient, RN notes reviewed, Caregiver Mode of arrival: ambulatory Limitations: no limitations - History of Present Illness Initial Comments: This a 54-year-old female presents emergency Department chief complaint of needing psychiatric help. Patient states that she's missed her injections in medications recently. Patient's found to be a manic state last episode was improved at this time. She states she is very anxious. Denies any complaints or homicidal. Patient denies any physical complaints. Patient blood sugar is usually quite high. Patient denies dysuria hematuria patient does have some nausea and vomiting Yesterday nothing this morning. No chest pain or shortness breath - Related Data Home Medications Medication Instructions Recorded Confirmed LORazepam [Ativan] 0.5 mg PO TID PRN 01/21/16 10/24/20 cloZAPine [Clozaril] 200 mg PO HS 01/21/16 10/24/20 fluPHENAZine decanoate [Prolixin 50 mg IM Q14D 01/21/16 10/24/20 Decanoate] Tamsulosin [Flomax] 0.4 mg PO DAILY 03/13/17 10/24/20 Cholecalciferol [Vitamin D3 (25 25 mcg PO DAILY 07/22/20 10/24/20 Mcg = 1000 Iu)] Fenofibrate 160 mg PO DAILY 07/22/20 10/24/20 Omeprazole 20 mg PO HS 07/22/20 10/24/20 metFORMIN HCL ER [Glucophage XR] 1,000 mg PO DAILY 07/22/20 10/24/20 Apixaban [Eliquis] 5 mg PO BID 10/24/20 10/24/20 Budesonide/Formoterol Fumarate 2 puff INHALATION RT-BID 10/24/20 10/24/20 [Symbicort 160-4.5 Mcg Inhaler] Glimepiride [Amaryl] 4 mg PO AC-BID 10/24/20 10/24/20 Ipratropium/Albuterol Sulfate 1 puff INHALATION RT-QID 10/24/20 10/24/20 [Combivent Respimat Inhaler] fluvoxaMINE MALEATE [Luvox] 100 mg PO DAILY 10/24/20 10/24/20 Previous Rx's Medication Instructions Recorded Cephalexin [Keflex] 500 mg PO Q8HR #30 cap 10/24/20 Allergies Allergy/AdvReac Type Severity Reaction Status Date / Time haloperidol [From Haldol] AdvReac Muscles Verified 10/24/20 10:34 freeze up in arms and hands haloperidol lactate AdvReac Muscles Verified 10/24/20 10:34 [From Haldol] freeze up in arms and hands Review of Systems ROS Statement: Those systems with pertinent positive or pertinent negative responses have been documented in the HPI. ROS Other: All systems not noted in ROS Statement are negative. Past Medical History Past Medical History: Diabetes Mellitus, GERD/Reflux, Osteoarthritis (OA), Pulmonary Embolus (PE) Additional Past Medical History / Comment(s): Hx of colon polyps, states borderline diabetic, neuorgenic bladder, anemia, self caths at home, thyroid nodule History of Any Multi-Drug Resistant Organisms: None Reported Past Surgical History: Back Surgery, Breast Surgery, Ear Surgery Additional Past Surgical History / Comment(s): hunter breast reduction, breast biopsy, bladder stimulator implant, skin grafts to ear Past Anesthesia/Blood Transfusion Reactions: No Reported Reaction Past Psychological History: Bipolar, Depression, Schizoaffective Disorder Smoking Status: Current every day smoker Past Alcohol Use History: None Reported Past Drug Use History: None Reported - Past Family History Father Family Medical History: Cancer Additional Family Medical History / Comment(s): lung Sister(s) Family Medical History: Cancer Additional Family Medical History / Comment(s): ovarian General Exam Limitations: no limitations General appearance: alert, in no apparent distress, anxious Head exam: Present: atraumatic, normocephalic, normal inspection Eye exam: Present: normal appearance, PERRL, EOMI. Absent: scleral icterus, conjunctival injection, periorbital swelling ENT exam: Present: normal exam, normal oropharynx, mucous membranes moist Neck exam: Present: normal inspection, full ROM. Absent: tenderness, meningismus, lymphadenopathy Respiratory exam: Present: normal lung sounds bilaterally. Absent: respiratory distress, wheezes, rales, rhonchi, stridor Cardiovascular Exam: Present: normal rhythm, tachycardia, normal heart sounds. Absent: systolic murmur, diastolic murmur, rubs, gallop, clicks GI/Abdominal exam: Present: soft, normal bowel sounds. Absent: distended, tenderness, guarding, rebound, rigid Neurological exam: Present: alert Psychiatric exam: Present: anxious Skin exam: Present: warm, dry, intact, normal color. Absent: rash Course Vital Signs 10/24/20 08:53 Temperature 97.8 F Pulse Rate 132 H Respiratory 20 Rate Blood Pressure 126/87 O2 Sat by Pulse 99 Oximetry Medical Decision Making - Medical Decision Making Patient was presented for psychiatric evaluation. Patient did have evidence of urinary tract infection was given antibiotics. Patient's labwork otherwise unremarkable. Patient will be discharged on oral antiemetics was evaluated by EPS recommends patient to follow-up on Monday for Prolixin injection patient and family member agree. - Lab Data Result diagrams: 10/24/20 09:34 10/24/20 09:34 Lab Results 10/24/20 10/24/20 10/24/20 Range/Units 09:20 09:34 09:34 WBC 7.0 (3.8-10.6) k/uL RBC 5.36 (3.80-5.40) m/uL Hgb 15.4 (11.4-16.0) gm/dL Hct 47.5 H (34.0-46.0) % MCV 88.6 (80.0-100.0) fL MCH 28.7 (25.0-35.0) pg MCHC 32.4 (31.0-37.0) g/dL RDW 15.0 (11.5-15.5) % Plt Count 213 (150-450) k/uL MPV 8.7 Neutrophils % 75 % Lymphocytes % 19 % Monocytes % 4 % Eosinophils % 0 % Basophils % 0 % Neutrophils # 5.2 (1.3-7.7) k/uL Lymphocytes # 1.3 (1.0-4.8) k/uL Monocytes # 0.3 (0-1.0) k/uL Eosinophils # 0.0 (0-0.7) k/uL Basophils # 0.0 (0-0.2) k/uL Sodium (137-145) mmol/L Potassium (3.5-5.1) mmol/L Chloride (98-107) mmol/L Carbon Dioxide (22-30) mmol/L Anion Gap mmol/L BUN (7-17) mg/dL Creatinine (0.52-1.04) mg/dL Est GFR (CKD-EPI)AfAm (>60 ml/min/1.73 sqM) Est GFR (CKD-EPI)NonAf (>60 ml/min/1.73 sqM) Glucose (74-99) mg/dL POC Glucose (mg/dL) 243 H (75-99) mg/dL POC Glu After [employer] Coordinator ID ANAID Snider Andre Calcium (8.4-10.2) mg/dL Magnesium (1.6-2.3) mg/dL Total Bilirubin (0.2-1.3) mg/dL AST (14-36) U/L ALT (4-34) U/L Alkaline Phosphatase (38-126) U/L Total Protein (6.3-8.2) g/dL Albumin (3.5-5.0) g/dL Urine Color Yellow Urine Appearance Turbid H (Clear) Urine pH 5.5 (5.0-8.0) Ur Specific [place] 1.012 (1.001-1.035) Urine Protein 1+ H (Negative) Urine Glucose (UA) Negative (Negative) Urine Ketones Negative (Negative) Urine Blood Large H (Negative) Urine Nitrite Negative (Negative) Urine Bilirubin Negative (Negative) Urine Urobilinogen <2.0 (<2.0) mg/dL Ur Leukocyte Esterase Large H (Negative) Urine RBC >182 H (0-5) /hpf Urine WBC >182 H (0-5) /hpf Urine WBC Clumps Many H (None) /hpf Ur Squamous Epith Cells 25 H (0-4) /hpf Urine Bacteria Many H (None) /hpf Urine Mucus Rare H (None) /hpf Urine Opiates Screen Not Detected (NotDetected) Ur Oxycodone Screen Not Detected (NotDetected) Urine Methadone Screen Not Detected (NotDetected) Ur Propoxyphene Screen Not Detected (NotDetected) Ur Barbiturates Screen Not Detected (NotDetected) U Tricyclic Antidepress Not Detected (NotDetected) Ur Phencyclidine Scrn Not Detected (NotDetected) Ur Amphetamines Screen Not Detected (NotDetected) U Methamphetamines Scrn Not Detected (NotDetected) U Benzodiazepines Scrn Not Detected (NotDetected) Urine Cocaine Screen Not Detected (NotDetected) U Marijuana (THC) Screen Not Detected (NotDetected) Serum Alcohol mg/dL 10/24/20 Range/Units 09:34 WBC (3.8-10.6) k/uL RBC (3.80-5.40) m/uL Hgb (11.4-16.0) gm/dL Hct (34.0-46.0) % MCV (80.0-100.0) fL MCH (25.0-35.0) pg MCHC (31.0-37.0) g/dL RDW (11.5-15.5) % Plt Count (150-450) k/uL MPV Neutrophils % % Lymphocytes % % Monocytes % % Eosinophils % % Basophils % % Neutrophils # (1.3-7.7) k/uL Lymphocytes # (1.0-4.8) k/uL Monocytes # (0-1.0) k/uL Eosinophils # (0-0.7) k/uL Basophils # (0-0.2) k/uL Sodium 141 (137-145) mmol/L Potassium 4.5 (3.5-5.1) mmol/L Chloride 106 (98-107) mmol/L Carbon Dioxide 21 L (22-30) mmol/L Anion Gap 14 mmol/L BUN 25 H (7-17) mg/dL Creatinine 1.35 H (0.52-1.04) mg/dL Est GFR (CKD-EPI)AfAm 51 (>60 ml/min/1.73 sqM) Est GFR (CKD-EPI)NonAf 44 (>60 ml/min/1.73 sqM) Glucose 257 H (74-99) mg/dL POC Glucose (mg/dL) (75-99) mg/dL POC Glu After [employer] Coordinator ID Calcium 10.3 H (8.4-10.2) mg/dL Magnesium 1.9 (1.6-2.3) mg/dL Total Bilirubin 0.4 (0.2-1.3) mg/dL AST 44 H (14-36) U/L ALT 33 (4-34) U/L Alkaline Phosphatase 57 (38-126) U/L Total Protein 7.5 (6.3-8.2) g/dL Albumin 5.0 (3.5-5.0) g/dL Urine Color Urine Appearance (Clear) Urine pH (5.0-8.0) Ur Specific [place] (1.001-1.035) Urine Protein (Negative) Urine Glucose (UA) (Negative) Urine Ketones (Negative) Urine Blood (Negative) Urine Nitrite (Negative) Urine Bilirubin (Negative) Urine Urobilinogen (<2.0) mg/dL Ur Leukocyte Esterase (Negative) Urine RBC (0-5) /hpf Urine WBC (0-5) /hpf Urine WBC Clumps (None) /hpf Ur Squamous Epith Cells (0-4) /hpf Urine Bacteria (None) /hpf Urine Mucus (None) /hpf Urine Opiates Screen (NotDetected) Ur Oxycodone Screen (NotDetected) Urine Methadone Screen (NotDetected) Ur Propoxyphene Screen (NotDetected) Ur Barbiturates Screen (NotDetected) U Tricyclic Antidepress (NotDetected) Ur Phencyclidine Scrn (NotDetected) Ur Amphetamines Screen (NotDetected) U Methamphetamines Scrn (NotDetected) U Benzodiazepines Scrn (NotDetected) Urine Cocaine Screen (NotDetected) U Marijuana (THC) Screen (NotDetected) Serum Alcohol <10 mg/dL Disposition Clinical Impression: Anxiety, UTI (urinary tract infection) Disposition: HOME SELF-CARE Condition: Stable Instructions (If sedation given, give patient instructions): Urinary Tract Infection in Women (ED) Additional Instructions: Please return to the Emergency Department if symptoms worsen or any other concerns. Prescriptions: Cephalexin [Keflex] 500 mg PO Q8HR #30 cap Is patient prescribed a controlled substance at d/c from ED?: No Referrals: Gamal Stuart DO [Primary Care Provider] - 1-2 days Time of Disposition: 12:54
[2020-10-24 10:14] LABS: Amphetamine Screen,Urine Not Detected (NotDetected); Barbiturate Screen,Urine Not Detected (NotDetected); Benzodiazepines Screen,Urine Not Detected (NotDetected); Cocaine Screen,Urine Not Detected (NotDetected); Methadone Screen, Urine Not Detected (NotDetected); Opiate Screen,Urine Not Detected (NotDetected); Oxycodone Screen, Urine Not Detected (NotDetected); Phencyclidine Screen,Urine Not Detected (NotDetected); Tricyclic Antidepressant,Urine Not Detected (NotDetected); Urn Cannabinoid Scrn Not Detected (NotDetected)
== END 2020-10-24 13:05 | disposition home or self-care (01) ==
LOC: EC 08:51
DX: F41.9 Anxiety disorder, unspecified (principal); N39.0 Urinary tract infection, site not specified; E11.9 Type 2 diabetes mellitus without complications; K21.9 Gastro-esophageal reflux disease without esophagitis; M19.90 Unspecified osteoarthritis, unspecified site; F31.9 Bipolar disorder, unspecified; F25.9 Schizoaffective disorder, unspecified; F17.200 Nicotine dependence, unspecified, uncomplicated; Z86.711 Personal history of pulmonary embolism; Z79.84 Long term (current) use of oral hypoglycemic drugs; Z79.01 Long term (current) use of anticoagulants; Z86.010 Personal history of colon polyps
CPT/HCPCS: 99283; 96365; 96361 ×3; 36415; 93005; 80053; 83735; 85025; 81001; 80306; 87086; 87077; 87186; G0480; J0696; 80320

== ENCOUNTER → 2020-11-03 | Outpatient (CLI) | payer MEDICARE, OTHER ==
--- NOTE | 2020-11-03 15:22 | CT ---
"EXAMINATION TYPE: CT angio chest DATE OF EXAM: 11/03/2020 2:43 PM COMPARISON: CTA chest July 21, 2020 HISTORY: Pulmonary embolism. CT DLP: 407.9 mGycm Automated exposure control for dose reduction was used. CONTRAST: CTA scan of the thorax is performed with IV Contrast, patient injected with 80 mL of Isovue 370, pulm onary embolism protocol. MIP images are created and reviewed. FINDINGS: LUNGS: Multifocal areas of peripheral groundglass opacity in the right lateral lung with additional a reas of involvement in the right upper lobe inferiorly coronal image 79 for reference and right lung apex are present on current study. The tracheobronchial tree is patent. No pleural effusion or pneum othorax seen bilaterally. No nodules or masses. MEDIASTINUM: There is satisfactory enhancement of the pulmonary artery and its branches, there is int erval resolution of large embolism right pulmonary artery. Prominent embolism in the middle and lower lobe branches show interval complete resolution . No suspicious new or residual pulmonary emboli. Th ere there is prominent pericardial recess fluid in the AP window image 55 thought to be redemonstrate d. Small pericardial effusion is slightly larger versus prior. No cardiomegaly. OTHER: Better visualization of large right thyroid nodule axial image 6. Slight scoliotic curvature. IMPRESSION: 1. Interval successful treatment of pulmonary embolism. No new or residual emboli. 2. New faint multifocal multilobar areas of groundglass opacity particularly throughout the right alfonzo g could reflect product of covid-19 infection in current environment, clinical correlation advised. 3. Stable suspicious right thyroid nodule, advise thyroid ultrasound correlation or follow up if this is not known finding. A Yellow level critical message alert has been initiated for Galdino Nguyen DO via the [employer] | Critical Results System on 11/03/2020 3:19 PM. This message alert has been sent to Galdino Nguyen DO via the preferences provided by the clinician for the receipt of Radiology Critical Findings. UShealthrecord age ID [id number]."
== END | disposition home or self-care (01) ==
LOC: RADCTMAIN 13:25
PROVIDERS: ATTEND Internal Medicine Critical Care Medicine
DX: R91.8 Other nonspecific abnormal finding of lung field (principal)
CPT/HCPCS: 82565; 84520; 71275; 36415; Q9967

== ENCOUNTER → 2021-01-12 | Outpatient (CLI) | payer MEDICARE, OTHER ==
--- NOTE | 2021-01-12 15:28 | US ---
EXAMINATION TYPE: US kidneys/renal and bladder DATE OF EXAM: 01/12/2021 COMPARISON: Prior ultrasound March 27, 2019 CLINICAL HISTORY: N31.9 Neuromuscular dysfunction of bladder. EXAM MEASUREMENTS: Right Kidney: 9.7x4.6x5.8 cm Left Kidney: 10.9x5.0x5.1 cm Bilateral echogenic kidneys Right Kidney: Mild hydro, mid cyst measures 0.8x0.6x0.6cm Left Kidney: Parapelvic cysts largest 1.4x1.9x1.1cm, Bladder: Diverticulum seen within Bilateral Jets seen: Right jet seen Increased cortical echogenicity bilaterally. Stable mild right-sided hydronephrosis. Small central pa rapelvic cyst in the left kidney redemonstrated but there is additional slightly less prominent mild pyelocaliectasis versus opposite right kidney redemonstrated. Bladder is satisfactorily distended wit h wall irregularities and slight thickening. Findings consistent with known chronic Neurogenic bladder. IMPRESSION: Mild right greater than left hydronephrosis redemonstrated. No significant change from pr ior.
== END | disposition home or self-care (01) ==
LOC: RADUSWWP 14:10
PROVIDERS: ATTEND Urology
DX: N13.30 Unspecified hydronephrosis (principal); N28.1 Cyst of kidney, acquired; N32.3 Diverticulum of bladder
CPT/HCPCS: 76770

== ENCOUNTER → 2021-08-05 | Outpatient (CLI) | payer MEDICARE, OTHER ==
--- NOTE | 2021-08-06 09:10 | CA ---
Transthoracic Echo Report Name: Veronique Dukes Age: 55 Gender: F : 1965 Exam Date: 08/05/2021 14:24 Exam Location: [facility] Ht (in): 61 Wt (lb): 168 Ordering Physician: Singh Jung DO ([email or web address]) Attending/Referring Phys: Sample Builder Brianna Ruffin RDCS Procedure CPT: Indications: r06.02 Cardiac Hx: Technical Quality: Fair Contrast 1: Total Dose (mL): Contrast 2: Total Dose (mL): MEASUREMENTS (Male / Female) Normal Values 2D ECHO LV Diastolic Diameter PLAX 3.6 cm 4.2 - 5.9 / 3.9 - 5.3 cm LV Systolic Diameter PLAX 2.8 cm IVS Diastolic Thickness 1.4 cm 0.6 - 1.0 / 0.6 - 0.9 cm LVPW Diastolic Thickness 1.2 cm 0.6 - 1.0 / 0.6 - 0.9 cm LV Relative Wall Thickness 0.7 RV Internal Dim ED PLAX 3.3 cm LA Volume 33.6 cm??? 18 - 58 / 22 - 52 cm??? M-MODE Aortic Root Diameter MM 2.7 cm LA Systolic Diameter MM 3.9 cm LA Ao Ratio MM 1.4 AV Cusp Separation MM 1.7 cm DOPPLER AV Peak Velocity 142.3 cm/s AV Peak Gradient 8.1 mmHg LVOT Peak Velocity 84.7 cm/s LVOT Peak Gradient 2.9 mmHg MV Area PHT 4.4 cm??? Mitral E Point Velocity 86.3 cm/s Mitral A Point Velocity 101.2 cm/s Mitral E to A Ratio 0.9 MV Deceleration Time 173.5 ms TR Peak Velocity 250.2 cm/s TR Peak Gradient 25.0 mmHg Right Ventricular Systolic Press 29.5 mmHg FINDINGS Left Ventricle Moderately increased left ventricular wall thickness. Normal left ventricular systolic function with no obvious regional wall motion abnormalities. Normal left ventricular diastolic filling pattern. Left ventricular ejection fraction is estimated at 55-60 %. Right Ventricle Normal right ventricular size and function. Right ventricular systolic pressure within normal limits. Right Atrium Right atrium not well visualized. Left Atrium Normal left atrial size. No evidence for an atrial septal defect. Mitral Valve Structurally normal mitral valve. No mitral stenosis, regurgitation or prolapse. Aortic Valve Trileaflet aortic valve. No aortic valve stenosis or regurgitation. Tricuspid Valve Structurally normal tricuspid valve. Mild tricuspid regurgitation. Pulmonic Valve Trace pulmonic regurgitation. Pericardium No pericardial effusion. Aorta Normal size aortic root and proximal ascending aorta. CONCLUSIONS #1. Moderate left ventricular concentric hypertrophy with preserved LV function. #2. Mild tricuspid regurgitation Previewed by: Dr. Shahida Solis MD (Electronically Signed) Final Date: 06 August 2021 09:09
== END | disposition home or self-care (01) ==
LOC: RADECHMAIN 13:42
PROVIDERS: ATTEND Internal Medicine
DX: I37.1 Nonrheumatic pulmonary valve insufficiency (principal); I07.1 Rheumatic tricuspid insufficiency
CPT/HCPCS: 93306

== ENCOUNTER 2021-08-07 14:15 | Emergency (ER) | payer MEDICARE, OTHER ==
[2021-08-07] MEDS ORDERED: methylPREDNISolone SOD SUCCI 125 MG/2 ML VIAL IV STA (15:33)
[2021-08-07] MEDS ORDERED: diphenhydrAMINE 50 MG/ML 1 ML VIAL IVP STA (15:33)
[2021-08-07] MEDS ORDERED: TRANEXAMIC ACID IN NACL,ISO-OS 1,000 MG in SALINE 1 100ML.BAG IVPB ONE (15:33)
[2021-08-07] MEDS ORDERED: FAMOTIDINE 20 MG/2 ML VIAL IV STA (15:33)
--- NOTE | 2021-08-07 15:39 | ED ---
Allergic Reaction HPI - General Chief complaint: Allergic Reaction Stated complaint: Oral issues Time Seen by Provider: 08/07/21 15:13 Source: patient Mode of arrival: ambulatory Limitations: no limitations - History of Present Illness Initial Comments: Veronique is a 55yo F since the ER today for evaluation of tongue swelling. Patient reports that approximately one hour prior to arrival she noticed swelling of her tongue, no new exposures that she is aware of. Her only known medication ALLERGY is Haldol. She does state she is on blood pressure medication believes it is lisinopril. - Related Data Home Medications Medication Instructions Recorded Confirmed LORazepam [Ativan] 0.5 mg PO TID PRN 01/21/16 10/24/20 cloZAPine [Clozaril] 200 mg PO HS 01/21/16 10/24/20 fluPHENAZine decanoate [Prolixin 50 mg IM Q14D 01/21/16 10/24/20 Decanoate] Tamsulosin [Flomax] 0.4 mg PO DAILY 03/13/17 10/24/20 Cholecalciferol [Vitamin D3 (25 25 mcg PO DAILY 07/22/20 10/24/20 Mcg = 1000 Iu)] Fenofibrate 160 mg PO DAILY 07/22/20 10/24/20 Omeprazole 20 mg PO HS 07/22/20 10/24/20 metFORMIN HCL ER [Glucophage XR] 1,000 mg PO DAILY 07/22/20 10/24/20 Apixaban [Eliquis] 5 mg PO BID 10/24/20 10/24/20 Budesonide/Formoterol Fumarate 2 puff INHALATION RT-BID 10/24/20 10/24/20 [Symbicort 160-4.5 Mcg Inhaler] Glimepiride [Amaryl] 4 mg PO AC-BID 10/24/20 10/24/20 Ipratropium/Albuterol Sulfate 1 puff INHALATION RT-QID 10/24/20 10/24/20 [Combivent Respimat Inhaler] fluvoxaMINE MALEATE [Luvox] 100 mg PO DAILY 10/24/20 10/24/20 Previous Rx's Medication Instructions Recorded Cephalexin [Keflex] 500 mg PO Q8HR #30 cap 10/24/20 Allergies Allergy/AdvReac Type Severity Reaction Status Date / Time haloperidol [From Haldol] AdvReac Muscles Verified 08/07/21 14:46 freeze up in arms and hands haloperidol lactate AdvReac Muscles Verified 08/07/21 14:46 [From Haldol] freeze up in arms and hands Review of Systems ROS Statement: Those systems with pertinent positive or pertinent negative responses have been documented in the HPI. ROS Other: All systems not noted in ROS Statement are negative. Past Medical History Past Medical History: Diabetes Mellitus, GERD/Reflux, Osteoarthritis (OA), Pulmonary Embolus (PE) Additional Past Medical History / Comment(s): Hx of colon polyps, states borderline diabetic, neuorgenic bladder, anemia, self caths at home, thyroid nodule History of Any Multi-Drug Resistant Organisms: None Reported Past Surgical History: Back Surgery, Breast Surgery, Ear Surgery Additional Past Surgical History / Comment(s): hunter breast reduction, breast biopsy, bladder stimulator implant, skin grafts to ear Past Anesthesia/Blood Transfusion Reactions: No Reported Reaction Past Psychological History: Bipolar, Depression, Schizoaffective Disorder Smoking Status: Current every day smoker Past Alcohol Use History: None Reported Past Drug Use History: None Reported - Past Family History Father Family Medical History: Cancer Additional Family Medical History / Comment(s): lung Sister(s) Family Medical History: Cancer Additional Family Medical History / Comment(s): ovarian General Exam - General Exam Comments Initial Comments: Physical Exam GENERAL: Patient is well-developed and well-nourished. Patient is nontoxic and well-hydrated and is in no distress. HENT: Normocephalic, Atraumatic. Angioedema of the right side of the tongue No angioedema of the lips or uvula EYES: PERRL, EOMI PULMONARY: Unlabored respirations. No audible rales rhonchi or wheezing was noted. No wheezing or stridor CARDIOVASCULAR: There is a regular rate and rhythm without any murmurs gallops or rubs. ABDOMEN: Soft and nontender with normal bowel sounds. SKIN: Skin is clear with no lesions or rashes and otherwise unremarkable. : Deferred NEUROLOGIC: Patient is alert and oriented x3. Moving all extremities spontaneously MUSCULOSKELETAL: Normal extremities with adequate strength and full range of motion. No lower extremity swelling or edema. No calf tenderness. PSYCHIATRIC: Normal psychiatric evaluation. Limitations: no limitations Course Vital Signs 08/07/21 08/07/21 08/07/21 14:43 15:06 15:54 Temperature 97.9 F Pulse Rate 111 H 105 H 99 Respiratory 22 20 20 Rate Blood Pressure 118/83 110/74 116/81 O2 Sat by Pulse 96 94 L 95 Oximetry 08/07/21 17:17 Temperature Pulse Rate 90 Respiratory 20 Rate Blood Pressure 120/64 O2 Sat by Pulse 95 Oximetry Medical Decision Making - Medical Decision Making Patient was seen and evaluated, patient is in no acute distress she speaking in full sentences Angioedema primarily of the right side of the tongue Medications were given, patient was recently evaluated approximately 2 hours later and had resolution of the angioedema Patient medication list was reviewed and does reveal she is on lisinopril confirming that the angioedema is likely YENI inhibitor induced, she was advised that she can never take YENI inhibitor again Patient to be discharged home, advised to follow up with PCP to discuss HTN management Disposition Clinical Impression: 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
[2021-08-07 18:21] VITALS: BP 118/88; PULSE 92; RESP 18; TEMP 98.2
== END 2021-08-07 18:21 | disposition home or self-care (01) ==
LOC: EC 14:15
DX: T78.3XXA Angioneurotic edema, initial encounter (principal); T46.4X5A Adverse effect of angiotensin-converting-enzyme inhibitors, initial encounter; E11.9 Type 2 diabetes mellitus without complications; K21.9 Gastro-esophageal reflux disease without esophagitis; M19.90 Unspecified osteoarthritis, unspecified site; F31.9 Bipolar disorder, unspecified; F25.9 Schizoaffective disorder, unspecified; F17.200 Nicotine dependence, unspecified, uncomplicated; Z79.84 Long term (current) use of oral hypoglycemic drugs; Z79.51 Long term (current) use of inhaled steroids; Z79.01 Long term (current) use of anticoagulants; Z86.711 Personal history of pulmonary embolism; Z79.899 Other long term (current) drug therapy
CPT/HCPCS: 99284; 96365; 96375 ×3; J1200; J2930

== ENCOUNTER 2021-10-19 16:53 | Inpatient (IN) | payer MEDICARE, OTHER ==
[2021-10-19] MEDS ORDERED: SODIUM CHLORIDE 0.9% 1,000 ML IV STA (17:59)
[2021-10-19] MEDS ORDERED: LIDOCAINE 1% INJ 10MG/ML (20 ML MDV) SQ ONE (18:00)
[2021-10-19 18:31] LABS: Basophils % (A) 0 %; Eosinophils # (A) 0.1 k/uL (0-0.7); Eosinophils % (A) 0 %; HCT 40.4 % (34.0-46.0); HGB 13.1 gm/dL (11.4-16.0); Lymphocytes # (A) 0.6 k/uL (1.0-4.8); Lymphocytes % (A) 5 %; MCH 28.6 pg (25.0-35.0); MCHC 32.5 g/dL (31.0-37.0); MCV 87.8 fL (80.0-100.0); Mean Platelet Volume 9.3; Monocytes # (A) 0.3 k/uL (0-1.0); Monocytes % (A) 3 %; Neutrophils # (A) 11.7 k/uL (1.3-7.7); Neutrophils % (A) 92 %; Platelet Count 200 k/uL (150-450); RDW 14.1 % (11.5-15.5); WBC 12.7 k/uL (3.8-10.6)
[2021-10-19 18:44] LABS: ALT 22 U/L (4-34); AST 24 U/L (14-36); African American GFR (CKD) 59 (>60 ml/min/1.73 sqM); Albumin 4.4 g/dL (3.5-5.0); Alkaline Phosphatase 66 U/L (38-126); Amylase 67 U/L (30-110); Anion Gap 21 mmol/L; Blood Urea Nitrogen 19 mg/dL (7-17); Calcium 7.1 mg/dL (8.4-10.2); Carbon Dioxide 25 mmol/L (22-30); Chloride 95 mmol/L (98-107); Glucose 308 mg/dL (74-99); Lipase 112 U/L (23-300); Non-African American GFR(CKD) 51 (>60 ml/min/1.73 sqM); Potassium 3.1 mmol/L (3.5-5.1); Sodium 141 mmol/L (137-145); Total Bilirubin 0.5 mg/dL (0.2-1.3); Total Protein 6.9 g/dL (6.3-8.2)
[2021-10-19 18:46] LABS: Magnesium <0.4 mg/dL (1.6-2.3)
--- NOTE | 2021-10-19 18:47 | XR ---
EXAMINATION TYPE: XR chest 2V DATE OF EXAM: 10/19/2021 6:36 PM COMPARISON: Chest radiographs from 07/17/2020 TECHNIQUE: XR chest 2V Frontal and lateral views of the chest. CLINICAL INDICATION:Female, 55 years old with history of Chest Pain; FINDINGS: Lungs/Pleura: There is no evidence of pleural effusion, focal consolidation, or pneumothorax. Pulmonary vascularity: Unremarkable. Heart/mediastinum: Cardiomediastinal silhouette is unremarkable. Musculoskeletal: No acute osseous pathology. IMPRESSION: No acute cardiopulmonary disease/process.
--- NOTE | 2021-10-19 18:50 | CT ---
EXAMINATION TYPE: CT brain cspine wo con CT DLP: 1330.5 mGycm, Automated exposure control for dose reduction was used. DATE OF EXAM: 10/19/2021 6:34 PM COMPARISON: None.. CLINICAL INDICATION:Female, 55 years old with history of fall; fall TECHNIQUE: Brain: Multiple axial CT images of the brain were obtained without IV contrast. Cspine: Axial CT images from the skull base to the inferior aspect of T2 we obtained without intraven ous contrast. Coronal and sagittal reformatted images were also reviewed. FINDINGS: Brain: Extra-axial spaces: No abnormal extra-axial fluid collections. Ventricular system: Within normal limits Cerebral parenchyma: No acute intraparenchymal hemorrhage or mass effect. The ramirez-white junction is well differentiated. Cerebellum: Unremarkable. Mass effect: No evidence of midline shift. Intracranial vasculature: unremarkable Soft tissues: Normal. Calvarium/osseous structures: No depressed skull fracture. Paranasal sinuses and mastoid air cells: Clear. Visualized orbits: Orbital contents are intact. Cervical spine: Fracture: None. Osseous structures: Multilevel degenerative disc disease changes with endplate spurring and disc oste ophyte complex's. Vertebral alignment: Within normal limits. Spinal canal/Neural Foramina: No evidence of significant spinal canal narrowing. Facet joint uncovert ebral joint arthropathy scattered throughout the cervical spine with varying degrees of neural forami nal stenosis. Neck soft tissues: Prevertebral soft tissues are within normal limits. Other: The airway is patent. The lung apices are clear. IMPRESSION: 1. No acute intracranial process. 2. No evidence of cervical spine fracture. 3. Mild multilevel degenerative disc disease.
--- NOTE | 2021-10-19 19:02 | ED ---
Fall HPI - General Source: patient Mode of arrival: ambulatory <Myriam Mobley - Last Filed: 10/19/21 20:40> <Jigar Poe - Last Filed: 10/20/21 04:07> - General Chief Complaint: Fall Stated Complaint: vomiting Time Seen by Provider: 10/19/21 17:46 - History of Present Illness Initial Comments: Patient is a 55-year-old female resenting for evaluation of vomiting x 2 days. Patient was told that she has a urinary tract infection today at urgent care, she has a history of recurrent UTIs. She has to self cath twice a day and has a bladder stimulator. Patient tripped over her cat today hitting her head. Patient has been ex periencing some dizziness and has a laceration to the scalp. Last tetanus was last year. She is on blood thinners, there was no loss of consciousness. Patient was evaluated in urgent care today after her fall, they noted that she was tachycardic and her oxygen saturation was low, they encouraged evaluation in the ER. She denies any abdominal pain. No chest pain or shortness of breath. No palpitations or weakness. No melena emesis, hematochezia, melena, headache, neck pain, vision or hearing changes, numbness, tingling. (Myriam Mobley) - Related Data Home Medications Medication Instructions Recorded Confirmed cloZAPine [Clozaril] 200 mg PO HS 01/21/16 10/19/21 fluPHENAZine decanoate [Prolixin 50 mg IM Q14D 01/21/16 10/19/21 Decanoate] Tamsulosin [Flomax] 0.4 mg PO DAILY 03/13/17 10/19/21 Cholecalciferol [Vitamin D3 (25 25 mcg PO DAILY 07/22/20 10/19/21 Mcg = 1000 Iu)] Omeprazole 20 mg PO BID 07/22/20 10/19/21 metFORMIN HCL ER [Glucophage XR] 1,000 mg PO DAILY 07/22/20 10/19/21 Apixaban [Eliquis] 5 mg PO BID 10/24/20 10/19/21 Budesonide/Formoterol Fumarate 2 puff INHALATION RT-BID 10/24/20 10/19/21 [Symbicort 160-4.5 Mcg Inhaler] Glimepiride [Amaryl] 4 mg PO AC-BID 10/24/20 10/19/21 Ipratropium/Albuterol Sulfate 1 puff INHALATION RT-QID 10/24/20 10/19/21 [Combivent Respimat Inhaler] fluvoxaMINE MALEATE [Luvox] 100 mg PO HS 10/24/20 10/19/21 Atorvastatin [Lipitor] 40 mg PO DAILY 10/19/21 10/19/21 Metoprolol Succinate (ER) [Toprol 25 mg PO DAILY 10/19/21 10/19/21 Xl] Nitrofurantoin Monohyd/M-Cryst 100 mg PO BID 10/19/21 10/19/21 [Macrobid] Ondansetron Odt [Zofran Odt] 8 mg PO Q8HR PRN 10/19/21 10/19/21 sitaGLIPtin [Januvia] 50 mg PO DAILY 10/19/21 10/19/21 Allergies Allergy/AdvReac Type Severity Reaction Status Date / Time haloperidol [From Haldol] AdvReac Muscles Verified 10/19/21 21:17 freeze up in arms and hands haloperidol lactate AdvReac Muscles Verified 10/19/21 21:17 [From Haldol] freeze up in arms and hands Review of Systems ROS Other: All systems not noted in ROS Statement are negative. <Myriam Mobley - Last Filed: 10/19/21 20:40> ROS Other: All systems not noted in ROS Statement are negative. <Jigar Poe - Last Filed: 10/20/21 04:07> ROS Statement: Those systems with pertinent positive or pertinent negative responses have been documented in the HPI. Past Medical History Past Medical History: Diabetes Mellitus, GERD/Reflux, Osteoarthritis (OA), Pulmonary Embolus (PE) Additional Past Medical History / Comment(s): Hx of colon polyps, states borderline diabetic, neuorgenic bladder, anemia, self caths at home, thyroid nodule History of Any Multi-Drug Resistant Organisms: None Reported Past Surgical History: Back Surgery, Breast Surgery, Ear Surgery Additional Past Surgical History / Comment(s): hunter breast reduction, breast biopsy, bladder stimulator implant, skin grafts to ear Past Anesthesia/Blood Transfusion Reactions: No Reported Reaction Past Psychological History: Bipolar, Depression, Schizoaffective Disorder Smoking Status: Current every day smoker Past Alcohol Use History: None Reported Past Drug Use History: None Reported - Past Family History Father Family Medical History: Cancer Additional Family Medical History / Comment(s): lung Sister(s) Family Medical History: Cancer Additional Family Medical History / Comment(s): ovarian <Myriam Mobley - Last Filed: 10/19/21 20:40> General Exam Limitations: no limitations General appearance: alert, in no apparent distress Head exam: Present: other (2 cm laceration scalp) Eye exam: Present: normal appearance, PERRL, EOMI. Absent: scleral icterus, periorbital swelling Neck exam: Present: normal inspection, full ROM Respiratory exam: Present: normal lung sounds bilaterally. Absent: respiratory distress, wheezes, rales, rhonchi, stridor Cardiovascular Exam: Present: normal rhythm, tachycardia, normal heart sounds. Absent: systolic murmur, diastolic murmur, rubs, gallop, clicks <Myriam Mobley - Last Filed: 10/19/21 20:40> General appearance: alert, in no apparent distress Head exam: Present: atraumatic, normocephalic, normal inspection Eye exam: Present: normal appearance, PERRL, EOMI. Absent: scleral icterus, conjunctival injection, periorbital swelling ENT exam: Present: normal exam, mucous membranes moist Neck exam: Present: normal inspection. Absent: tenderness, meningismus, lymphadenopathy Respiratory exam: Present: normal lung sounds bilaterally. Absent: respiratory distress, wheezes, rales, rhonchi, stridor Cardiovascular Exam: Present: regular rate, normal rhythm, normal heart sounds. Absent: systolic murmur, diastolic murmur, rubs, gallop, clicks GI/Abdominal exam: Present: soft, normal bowel sounds. Absent: distended, tenderness, guarding, rebound, rigid Extremities exam: Present: normal inspection, full ROM, normal capillary refill. Absent: tenderness, pedal edema, joint swelling, calf tenderness Back exam: Present: normal inspection Neurological exam: Present: alert, oriented X3, CN II-XII intact Psychiatric exam: Present: normal affect, normal mood Skin exam: Present: warm, dry, intact, normal color. Absent: rash <Jigar Poe - Last Filed: 10/20/21 04:07> Course <Jigar Poe - Last Filed: 10/20/21 04:07> Vital Signs 10/19/21 10/19/21 10/19/21 17:39 20:20 21:05 Temperature 98 F Pulse Rate 130 H 112 H Respiratory 18 Rate Blood Pressure 146/81 137/98 O2 Sat by Pulse 97 Oximetry 10/20/21 01:25 Temperature Pulse Rate 103 H Respiratory 18 Rate Blood Pressure O2 Sat by Pulse 100 Oximetry - Reevaluation(s) Reevaluation #1: 10/20/21 04:07 Corrected is reviewed (Jigar Poe) Medical Decision Making - Lab Data Result diagrams: 10/19/21 18:27 10/19/21 18:27 <Myriam Mobley - Last Filed: 10/19/21 20:40> - Lab Data Result diagrams: 10/19/21 18:27 10/19/21 18:27 <Jigar Poe - Last Filed: 10/20/21 04:07> - Medical Decision Making Patient is a 55-year-old female presenting for evaluation post fall. Fall occurred this afternoon, she is on Eliquis, no loss of consciousness. She sustained a 2 cm laceration to the scalp. Tetanus was updated last year. Additionally patient states that she has been vomiting all day today and yesterday. History of UTIs. On examination there are no focal neurological deficits. CT of the brain and cervical spine without contrast shows no acute process. Magnesium is < 0.4 and calcium is 7.1. Potassium is 3.1. Patient is started on electrolyte replacement. D-dimer was drawn as patient's resting heart rate was 130 when she came in, it is 0.60, CTA of the chest for PE is taken. Urine is pending at this time I spoke with Dr. Melgar who agreed to admit the patient. I discussed these findings and the plan with the patient's sister, she was agreeable to this plan. I discussed this case with the attending Dr. Desir. (Myriam Mobley) - Lab Data Lab Results 10/19/21 10/19/21 10/19/21 Range/Units 18:02 18:02 18:27 WBC 9.4 12.7 H (3.8-10.6) k/uL RBC 3.78 L 4.60 (3.80-5.40) m/uL Hgb 11.2 L 13.1 (11.4-16.0) gm/dL Hct 33.4 L 40.4 (34.0-46.0) % MCV 88.2 87.8 (80.0-100.0) fL MCH 29.7 28.6 (25.0-35.0) pg MCHC 33.6 32.5 (31.0-37.0) g/dL RDW 14.4 14.1 (11.5-15.5) % Plt Count 184 200 (150-450) k/uL MPV 8.9 9.3 Neutrophils % 88 92 % Lymphocytes % 9 5 % Monocytes % 2 3 % Eosinophils % 1 0 % Basophils % 0 0 % Neutrophils # 8.3 H 11.7 H (1.3-7.7) k/uL Lymphocytes # 0.8 L 0.6 L (1.0-4.8) k/uL Monocytes # 0.2 0.3 (0-1.0) k/uL Eosinophils # 0.0 0.1 (0-0.7) k/uL Basophils # 0.0 0.0 (0-0.2) k/uL PT (9.0-12.0) sec INR (<1.2) APTT (22.0-30.0) sec D-Dimer (<0.60) mg/L FEU Sodium 139 (137-145) mmol/L Potassium 3.1 L (3.5-5.1) mmol/L Chloride 97 L (98-107) mmol/L Carbon Dioxide 24 (22-30) mmol/L Anion Gap 18 mmol/L BUN 20 H (7-17) mg/dL Creatinine 1.06 H (0.52-1.04) mg/dL Est GFR (CKD-EPI)AfAm 68 (>60 ml/min/1.73 sqM) Est GFR (CKD-EPI)NonAf 59 (>60 ml/min/1.73 sqM) Glucose 294 H (74-99) mg/dL POC Glucose (mg/dL) (70-110) mg/dL POC Glu Medical Billing And Coding Specialist ID Calcium 6.2 L* (8.4-10.2) mg/dL Magnesium (1.6-2.3) mg/dL Total Bilirubin 0.4 (0.2-1.3) mg/dL AST 20 (14-36) U/L ALT 18 (4-34) U/L Alkaline Phosphatase 46 (38-126) U/L Troponin I (0.000-0.034) ng/mL Total Protein 5.6 L (6.3-8.2) g/dL Albumin 3.3 L (3.5-5.0) g/dL Amylase (30-110) U/L Lipase (23-300) U/L Urine Color Urine Appearance (Clear) Urine pH (5.0-8.0) Ur Specific [place] (1.001-1.035) Urine Protein (Negative) Urine Glucose (UA) (Negative) Urine Ketones (Negative) Urine Blood (Negative) Urine Nitrite (Negative) Urine Bilirubin (Negative) Urine Urobilinogen (<2.0) mg/dL Ur Leukocyte Esterase (Negative) Urine RBC (0-5) /hpf Urine WBC (0-5) /hpf Urine WBC Clumps (None) /hpf Ur Squamous Epith Cells (0-4) /hpf Urine Bacteria (None) /hpf Urine Mucus (None) /hpf 10/19/21 10/19/21 10/19/21 Range/Units 18:27 18:27 18:27 WBC (3.8-10.6) k/uL RBC (3.80-5.40) m/uL Hgb (11.4-16.0) gm/dL Hct (34.0-46.0) % MCV (80.0-100.0) fL MCH (25.0-35.0) pg MCHC (31.0-37.0) g/dL RDW (11.5-15.5) % Plt Count (150-450) k/uL MPV Neutrophils % % Lymphocytes % % Monocytes % % Eosinophils % % Basophils % % Neutrophils # (1.3-7.7) k/uL Lymphocytes # (1.0-4.8) k/uL Monocytes # (0-1.0) k/uL Eosinophils # (0-0.7) k/uL Basophils # (0-0.2) k/uL PT 13.4 H (9.0-12.0) sec INR 1.3 H (<1.2) APTT 24.2 (22.0-30.0) sec D-Dimer 0.60 H (<0.60) mg/L FEU Sodium 141 (137-145) mmol/L Potassium 3.1 L (3.5-5.1) mmol/L Chloride 95 L (98-107) mmol/L Carbon Dioxide 25 (22-30) mmol/L Anion Gap 21 mmol/L BUN 19 H (7-17) mg/dL Creatinine 1.19 H (0.52-1.04) mg/dL Est GFR (CKD-EPI)AfAm 59 (>60 ml/min/1.73 sqM) Est GFR (CKD-EPI)NonAf 51 (>60 ml/min/1.73 sqM) Glucose 308 H (74-99) mg/dL POC Glucose (mg/dL) (70-110) mg/dL POC Glu Medical Billing And Coding Specialist ID Calcium 7.1 L (8.4-10.2) mg/dL Magnesium <0.4 L* (1.6-2.3) mg/dL Total Bilirubin 0.5 (0.2-1.3) mg/dL AST 24 (14-36) U/L ALT 22 (4-34) U/L Alkaline Phosphatase 66 (38-126) U/L Troponin I <0.012 (0.000-0.034) ng/mL Total Protein 6.9 (6.3-8.2) g/dL Albumin 4.4 (3.5-5.0) g/dL Amylase 67 (30-110) U/L Lipase 112 (23-300) U/L Urine Color Urine Appearance (Clear) Urine pH (5.0-8.0) Ur Specific [place] (1.001-1.035) Urine Protein (Negative) Urine Glucose (UA) (Negative) Urine Ketones (Negative) Urine Blood (Negative) Urine Nitrite (Negative) Urine Bilirubin (Negative) Urine Urobilinogen (<2.0) mg/dL Ur Leukocyte Esterase (Negative) Urine RBC (0-5) /hpf Urine WBC (0-5) /hpf Urine WBC Clumps (None) /hpf Ur Squamous Epith Cells (0-4) /hpf Urine Bacteria (None) /hpf Urine Mucus (None) /hpf 08/23/22 08/23/22 Range/Units 18:57 19:23 WBC (3.8-10.6) k/uL RBC (3.80-5.40) m/uL Hgb (11.4-16.0) gm/dL Hct (34.0-46.0) % MCV (80.0-100.0) fL MCH (25.0-35.0) pg MCHC (31.0-37.0) g/dL RDW (11.5-15.5) % Plt Count (150-450) k/uL MPV Neutrophils % % Lymphocytes % % Monocytes % % Eosinophils % % Basophils % % Neutrophils # (1.3-7.7) k/uL Lymphocytes # (1.0-4.8) k/uL Monocytes # (0-1.0) k/uL Eosinophils # (0-0.7) k/uL Basophils # (0-0.2) k/uL PT (9.0-12.0) sec INR (<1.2) APTT (22.0-30.0) sec D-Dimer (<0.60) mg/L FEU Sodium (137-145) mmol/L Potassium (3.5-5.1) mmol/L Chloride (98-107) mmol/L Carbon Dioxide (22-30) mmol/L Anion Gap mmol/L BUN (7-17) mg/dL Creatinine (0.52-1.04) mg/dL Est GFR (CKD-EPI)AfAm (>60 ml/min/1.73 sqM) Est GFR (CKD-EPI)NonAf (>60 ml/min/1.73 sqM) Glucose (74-99) mg/dL POC Glucose (mg/dL) 293 H (70-110) mg/dL POC Glu Medical Billing And Coding Specialist ID Oanhek, Deya Calcium (8.4-10.2) mg/dL Magnesium (1.6-2.3) mg/dL Total Bilirubin (0.2-1.3) mg/dL AST (14-36) U/L ALT (4-34) U/L Alkaline Phosphatase (38-126) U/L Troponin I (0.000-0.034) ng/mL Total Protein (6.3-8.2) g/dL Albumin (3.5-5.0) g/dL Amylase (30-110) U/L Lipase (23-300) U/L Urine Color Yellow Urine Appearance Cloudy H (Clear) Urine pH 6.0 (5.0-8.0) Ur Specific [place] 1.014 (1.001-1.035) Urine Protein 2+ H (Negative) Urine Glucose (UA) Negative (Negative) Urine Ketones Negative (Negative) Urine Blood Small H (Negative) Urine Nitrite Negative (Negative) Urine Bilirubin Negative (Negative) Urine Urobilinogen <2.0 (<2.0) mg/dL Ur Leukocyte Esterase Large H (Negative) Urine RBC 4 (0-5) /hpf Urine WBC >182 H (0-5) /hpf Urine WBC Clumps Few H (None) /hpf Ur Squamous Epith Cells 7 H (0-4) /hpf Urine Bacteria Many H (None) /hpf Urine Mucus Occasional H (None) /hpf Critical Care Time Critical Care Time: Yes Total Critical Care Time: 31 <Jigar Poe - Last Filed: 10/20/21 04:07> Disposition Time of Disposition: 19:38 Decision to Admit Reason: Admit from EC Decision Date: 10/19/21 Decision Time: 19:38 <Myriam Mobley - Last Filed: 10/19/21 20:40> Is patient prescribed a controlled substance at d/c from ED?: No <Jigar Poe - Last Filed: 10/20/21 04:07> Clinical Impression: Hypomagnesemia, Hypocalcemia, Hypokalemia, Fall, UTI (urinary tract infection), Dehydration Disposition: ADMITTED IP TO THIS [facility] Condition: Serious Referrals: Gamal Stuart DO [Primary Care Provider] - 1-2 days
[2021-10-19] MEDS ORDERED: Magnesium Replacement Protocol 1 EACH MISC MISCELLANE PRN (19:03)
[2021-10-19] MEDS ORDERED: Potassium Replacement Protocol 1 EACH MISC MISCELLANE PRN (19:06)
[2021-10-19] MEDS ORDERED: CALCIUM GLUCONATE IN NACL 1 GM in SALINE 1 100ML.BAG IVPB ONE (19:07)
[2021-10-19 19:25] LABS: Glucose,Whole Blood 293 mg/dL (70-110)
[2021-10-19 19:36] LABS: INR 1.3 (<1.2); Partial Thromboplastin Time 24.2 sec (22.0-30.0); Prothrombin Time 13.4 sec (9.0-12.0)
[2021-10-19] MEDS ORDERED: SODIUM CHLORIDE 0.9% 1,000 ML IV SCH (20:00)
[2021-10-19] MEDS ORDERED: ONDANSETRON 4 MG/2 ML VIAL IVP STA (20:09)
[2021-10-19 20:28] LABS: Appearance,Urine Cloudy (Clear); Bacteria,Urine Many /hpf; Bilirubin,Urine Negative (Negative); Blood,Urine Small (Negative); Color,Urine Yellow; Glucose,Urine (UA) Negative (Negative); Ketones,Urine Negative (Negative); Leukocyte Esterase,Urine Large (Negative); Mucus,Urine Occasional /hpf; Nitrite,Urine Negative (Negative); Protein,Urine 2+ (Negative); RBC,Urine 4 /hpf (0-5); Specific Gravity,Urine 1.014 (1.001-1.035); Squamous Epithelial Cell,Urine 7 /hpf (0-4); Urobilinogen,Urine <2.0 mg/dL (<2.0); WBC,Urine >182 /hpf (0-5)
[2021-10-19] MEDS: POTASSIUM CHLORIDE ER 20 MEQ TAB.ER PO SCH ×2 (20:36→21:06)
[2021-10-19 20:47] LABS: Basophils % (A) 0 %; Eosinophils % (A) 1 %; HCT 33.4 % (34.0-46.0); HGB 11.2 gm/dL (11.4-16.0); Lymphocytes # (A) 0.8 k/uL (1.0-4.8); Lymphocytes % (A) 9 %; MCH 29.7 pg (25.0-35.0); MCHC 33.6 g/dL (31.0-37.0); MCV 88.2 fL (80.0-100.0); Mean Platelet Volume 8.9; Monocytes # (A) 0.2 k/uL (0-1.0); Monocytes % (A) 2 %; Neutrophils # (A) 8.3 k/uL (1.3-7.7); Neutrophils % (A) 88 %; Platelet Count 184 k/uL (150-450); RBC 3.78 m/uL (3.80-5.40); RDW 14.4 % (11.5-15.5); WBC 9.4 k/uL (3.8-10.6)
[2021-10-19 20:55] LABS: Albumin 3.3 g/dL (3.5-5.0); Potassium 3.1 mmol/L (3.5-5.1); Total Bilirubin 0.4 mg/dL (0.2-1.3); Total Protein 5.6 g/dL (6.3-8.2)
[2021-10-19 20:57] LABS: Calcium 6.2 mg/dL (8.4-10.2)
--- NOTE | 2021-10-19 21:27 | CT ---
EXAMINATION TYPE: CT chest angio for PE CT DLP: 385.3 mGycm, Automated exposure control for dose reduction was used. DATE OF EXAM: 10/19/2021 8:34 PM COMPARISON: Chest radiograph from same day. Multiple CTs of the chest with most recent on 11/03/2020 . CLINICAL INDICATION:Female, 55 years old with history of Tachycardic, elevated d-dimer; Tachycardic, elevated d-dimer TECHNIQUE/CONTRAST: CTA scan of the thorax is performed with IV Contrast, patient injected with 80cc mL of Isovue 370, pu lmonary embolism protocol. MIP images are created and reviewed. FINDINGS: Pulmonary Artery: There is no evidence for a central filling defect within the pulmonary vasculature to suggest acute pulmonary embolism. Limited evaluation of the segmental and subsegmental branches se condary to bolus timing. The pulmonary artery is of normal size. Lungs/Pleura: No evidence of focal consolidation, pleural effusion or pneumothorax. Airway: Large airways are patent. Heart: Heart is mildly enlarged for size. Vasculature: No evidence of aortic aneurysm. Mediastinum: No gross evidence of adenopathy. Musculoskeletal: No acute osseous abnormalities, remote injuries to left ribs 6 and 7 noted. Soft Tissues: Unremarkable. Lower neck: Heterogenous appearing right thyroid gland. Upper Abdomen: Diffuse low-attenuation to the liver parenchyma.. Multiple renal cortical and peripelv ic cysts noted bilaterally. Small splenule present. IMPRESSION: 1. No evidence of central pulmonary embolism. Limited evaluation of the segmental and subsegmental br anches due to bolus timing.. 2. Right thyroid gland nodule correlate with thyroid ultrasound. 3. Hepatic steatosis.
[2021-10-19] MEDS: MAGNESIUM SULFATE-D5W PMX 1 GM in DEXTROSE/WATER 1 100ML.BAG IVPB SCH ×2 (21:59→23:46)
[2021-10-20] MEDS: MAGNESIUM SULFATE-D5W PMX 1 GM in DEXTROSE/WATER 1 100ML.BAG IVPB SCH ×6 (01:21→11:40)
[2021-10-20] MEDS ORDERED: ONDANSETRON 4 MG/2 ML VIAL IVP PRN (04:01)
[2021-10-20] MEDS ORDERED: POTASSIUM BICARBONATE/CIT AC 20 MEQ TABLET.EFF PO ONE (04:01)
[2021-10-20] MEDS ORDERED: NALOXONE 0.4 MG/ML 1 ML VIAL IV PRN (04:01)
[2021-10-20] MEDS ORDERED: PROMETHAZINE 25 MG TAB PO PRN (06:39)
[2021-10-20] MEDS: SYMBICORT 160-4.5 MCG INHALER INHALATION SCH ×2 (07:36→19:35)
[2021-10-20] MEDS: ATORVASTATIN 40 MG TAB PO SCH (08:00)
[2021-10-20] MEDS: APIXABAN 5 MG TAB PO SCH ×2 (08:00→20:35)
[2021-10-20] MEDS: TAMSULOSIN 0.4 MG CAP.ER.24H PO SCH (08:00)
[2021-10-20] MEDS: SODIUM CHLORIDE 0.9% 1,000 ML IV SCH ×4 (08:02→23:34)
--- NOTE | 2021-10-20 08:45 | P.HPIM ---
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 This morning she did not vomit area she was complaining of from some periumbilical pain with vomiting. She says that she has a "ball movement and it looks alright to her. Has bowel movements was just when she came to emergency room. She denies chest pain or dyspnea. No headache or weakness or numbness. This morning she has been complaining from dysuria. Patient is a non-history of neurogenic bladder and she straight cath herself twice a day as she states. She smokes about 1 pack per day, last smoked 2 days ago, she was counseled to quit and she agrees but she declines nicotine patch. She denies alcohol or illicit drugs. Patient states that she has a psychiatrist Dr. Webb as an outpatient, last saw him about 2-4 weeks ago, she states she is doing well, she denies hallucination or delusions or suicidal or homicidal ideation however she thought she saw her , also she thought she saw her Away while she was next to her, this could be delusional thoughts Vital signs stable, patient is tachycardic on admission 101-112. Patient is afebrile. On admission she has leukocytosis of 12.7 K. INR is 1.3. D-dimer 0.6. Potassium 3.1, creatinine 1.1, glucose is more than 300 Calcium 7.1 at 6.2 which were low, magnesium level less than 0.4. Liver enzymes not elevated. Urine analysis is highly suspicious for infection and urine culture is pending. EKG showed sinus tachycardia at [address]-T changes. CTA of the chest: No evidence of pulmonary embolism, right thyroid gland nodule correlated with thyroid ultrasound CT of the head of the neck: Negative for acute fracture or dislocation. No acute intracranial lesion Chest x-ray: No acute process Emergency room patient received normal saline, lidocaine patch, calcium gluconate, Zofran, potassium replacement and ceftriaxone Review of Systems Review of systems CONSTITUTIONAL: No fever, no malaise, no fatigue. HEENT: No recent visual problems or hearing problems. Denied any sore throat. CARDIOVASCULAR: No orthopnea, PND, no palpitations, no syncope. PULMONARY: No shortness of breath, no cough, no hemoptysis. GASTROINTESTINAL: No diarrhea, no nausea, . Normoactive bowel sounds. NEUROLOGICAL: No headaches, no weakness, no numbness. HEMATOLOGICAL: Denies any bleeding or petechiae. GENITOURINARY: Denies any burning micturition, frequency, or urgency. MUSCULOSKELETAL/RHEUMATOLOGICAL: Denies any joint pain, swelling, or any muscle pain. ENDOCRINE: Denies any polyuria or polydipsia. Past Medical History Past Medical History: Diabetes Mellitus, GERD/Reflux, Osteoarthritis (OA), Pulmonary Embolus (PE) Additional Past Medical History / Comment(s): Hx of colon polyps, states borderline diabetic, neuorgenic bladder, anemia, self caths at home, thyroid nodule History of Any Multi-Drug Resistant Organisms: None Reported Past Surgical History: Back Surgery, Breast Surgery, Ear Surgery Additional Past Surgical History / Comment(s): hunter breast reduction, breast biopsy, bladder stimulator implant, skin grafts to ear Past Anesthesia/Blood Transfusion Reactions: No Reported Reaction Past Psychological History: Bipolar, Depression, Schizoaffective Disorder Smoking Status: Current every day smoker Past Alcohol Use History: None Reported Past Drug Use History: None Reported - Past Family History Father Family Medical History: Cancer Additional Family Medical History / Comment(s): lung Sister(s) Family Medical History: Cancer Additional Family Medical History / Comment(s): ovarian Medications and Allergies Home Medications Medication Instructions Recorded Confirmed Type cloZAPine [Clozaril] 200 mg PO HS 01/21/16 10/19/21 History fluPHENAZine decanoate [Prolixin 50 mg IM Q14D 01/21/16 10/19/21 History Decanoate] Tamsulosin [Flomax] 0.4 mg PO DAILY 03/13/17 10/19/21 History Cholecalciferol [Vitamin D3 (25 25 mcg PO DAILY 07/22/20 10/19/21 History Mcg = 1000 Iu)] Omeprazole 20 mg PO BID 07/22/20 10/19/21 History metFORMIN HCL ER [Glucophage XR] 1,000 mg PO DAILY 07/22/20 10/19/21 History Apixaban [Eliquis] 5 mg PO BID 10/24/20 10/19/21 History Budesonide/Formoterol Fumarate 2 puff INHALATION RT-BID 10/24/20 10/19/21 History [Symbicort 160-4.5 Mcg Inhaler] Glimepiride [Amaryl] 4 mg PO AC-BID 10/24/20 10/19/21 History Ipratropium/Albuterol Sulfate 1 puff INHALATION RT-QID 10/24/20 10/19/21 History [Combivent Respimat Inhaler] fluvoxaMINE MALEATE [Luvox] 100 mg PO HS 10/24/20 10/19/21 History Atorvastatin [Lipitor] 40 mg PO DAILY 10/19/21 10/19/21 History Metoprolol Succinate (ER) [Toprol 25 mg PO DAILY 10/19/21 10/19/21 History Xl] Nitrofurantoin Monohyd/M-Cryst 100 mg PO BID 10/19/21 10/19/21 History [Macrobid] Ondansetron Odt [Zofran Odt] 8 mg PO Q8HR PRN 10/19/21 10/19/21 History sitaGLIPtin [Januvia] 50 mg PO DAILY 10/19/21 10/19/21 History Allergies Allergy/AdvReac Type Severity Reaction Status Date / Time haloperidol [From Haldol] AdvReac Muscles Verified 10/19/21 21:17 freeze up in arms and hands haloperidol lactate AdvReac Muscles Verified 10/19/21 21:17 [From Haldol] freeze up in arms and hands Physical Exam Vitals: Vital Signs Temp Pulse Resp BP Pulse Ox 10/20/21 04:21 101 H 20 114/71 10/20/21 01:25 103 H 18 100 10/19/21 21:05 112 H 10/19/21 20:20 137/98 10/19/21 17:39 98 F 130 H 18 146/81 97 Intake and Output 10/19/21 10/19/21 10/20/21 14:59 22:59 06:59 Other: Weight 74.389 kg GENERAL: The patient is alert and oriented x3, not in any acute distress. Well developed, well nourished. HEENT: Pupils are round and equally reacting to light. EOMI. No scleral icterus. No conjunctival pallor. Normocephalic, atraumatic. No pharyngeal erythema. No thyromegaly. CARDIOVASCULAR: S1 and S2 present. No murmurs, rubs, or gallops. PULMONARY: Chest is clear to auscultation, no wheezing or crackles. ABDOMEN: Soft, nontender, nondistended, normoactive bowel sounds. No palpable organomegaly. MUSCULOSKELETAL: No joint swelling or deformity. EXTREMITIES: No cyanosis, clubbing, or pedal edema. NEUROLOGICAL: Gross neurological examination did not reveal any focal deficits. SKIN: No rashes. no petechiae. Results CBC & Chem 7: 10/19/21 18:27 10/19/21 18:27 Labs: Abnormal Lab Results - Last 24 Hours (Table) 10/19/21 10/19/21 10/19/21 Range/Units 18:02 18:02 18:27 WBC 12.7 H (3.8-10.6) k/uL RBC 3.78 L (3.80-5.40) m/uL Hgb 11.2 L (11.4-16.0) gm/dL Hct 33.4 L (34.0-46.0) % Neutrophils # 8.3 H 11.7 H (1.3-7.7) k/uL Lymphocytes # 0.8 L 0.6 L (1.0-4.8) k/uL PT (9.0-12.0) sec INR (<1.2) D-Dimer (<0.60) mg/L FEU Potassium 3.1 L (3.5-5.1) mmol/L Chloride 97 L (98-107) mmol/L BUN 20 H (7-17) mg/dL Creatinine 1.06 H (0.52-1.04) mg/dL Glucose 294 H (74-99) mg/dL POC Glucose (mg/dL) (70-110) mg/dL Calcium 6.2 L* (8.4-10.2) mg/dL Magnesium (1.6-2.3) mg/dL Total Protein 5.6 L (6.3-8.2) g/dL Albumin 3.3 L (3.5-5.0) g/dL Urine Appearance (Clear) Urine Protein (Negative) Urine Blood (Negative) Ur Leukocyte Esterase (Negative) Urine WBC (0-5) /hpf Urine WBC Clumps (None) /hpf Ur Squamous Epith Cells (0-4) /hpf Urine Bacteria (None) /hpf Urine Mucus (None) /hpf 10/19/21 10/19/21 10/19/21 Range/Units 18:27 18:27 18:57 WBC (3.8-10.6) k/uL RBC (3.80-5.40) m/uL Hgb (11.4-16.0) gm/dL Hct (34.0-46.0) % Neutrophils # (1.3-7.7) k/uL Lymphocytes # (1.0-4.8) k/uL PT 13.4 H (9.0-12.0) sec INR 1.3 H (<1.2) D-Dimer 0.60 H (<0.60) mg/L FEU Potassium 3.1 L (3.5-5.1) mmol/L Chloride 95 L (98-107) mmol/L BUN 19 H (7-17) mg/dL Creatinine 1.19 H (0.52-1.04) mg/dL Glucose 308 H (74-99) mg/dL POC Glucose (mg/dL) (70-110) mg/dL Calcium 7.1 L (8.4-10.2) mg/dL Magnesium <0.4 L* (1.6-2.3) mg/dL Total Protein (6.3-8.2) g/dL Albumin (3.5-5.0) g/dL Urine Appearance Cloudy H (Clear) Urine Protein 2+ H (Negative) Urine Blood Small H (Negative) Ur Leukocyte Esterase Large H (Negative) Urine WBC >182 H (0-5) /hpf Urine WBC Clumps Few H (None) /hpf Ur Squamous Epith Cells 7 H (0-4) /hpf Urine Bacteria Many H (None) /hpf Urine Mucus Occasional H (None) /hpf 10/19/21 Range/Units 19:23 WBC (3.8-10.6) k/uL RBC (3.80-5.40) m/uL Hgb (11.4-16.0) gm/dL Hct (34.0-46.0) % Neutrophils # (1.3-7.7) k/uL Lymphocytes # (1.0-4.8) k/uL PT (9.0-12.0) sec INR (<1.2) D-Dimer (<0.60) mg/L FEU Potassium (3.5-5.1) mmol/L Chloride (98-107) mmol/L BUN (7-17) mg/dL Creatinine (0.52-1.04) mg/dL Glucose (74-99) mg/dL POC Glucose (mg/dL) 293 H (70-110) mg/dL Calcium (8.4-10.2) mg/dL Magnesium (1.6-2.3) mg/dL Total Protein (6.3-8.2) g/dL Albumin (3.5-5.0) g/dL Urine Appearance (Clear) Urine Protein (Negative) Urine Blood (Negative) Ur Leukocyte Esterase (Negative) Urine WBC (0-5) /hpf Urine WBC Clumps (None) /hpf Ur Squamous Epith Cells (0-4) /hpf Urine Bacteria (None) /hpf Urine Mucus (None) /hpf Microbiology - Last 24 Hours (Table) 10/19/21 18:57 Urine Culture - Preliminary Urine,Voided Assessment and Plan Assessment: Acute urinary tract infection, failed outpatient treatment. 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 Patient informed about her thyroid nodule and the need to follow up as an outpatient and she verbalized understanding and asked Check bladder scan and place Taylor if needed Labs and medication were reviewed.. Continue same treatment. Continue with symptomatic treatment. Resume home medication. Monitor lytes and vitals. DVT and GI prophylaxis. Further recommendations as per clinical course of the patient DVT prophylaxis:Eliquis GI Prophylaxis: Pepcid PT/OT: Pending Prognosis is guarded
[2021-10-20] MEDS ORDERED: FAMOTIDINE 20 MG/2 ML VIAL IV SCH (09:00)
--- NOTE | 2021-10-20 09:01 | XR ---
EXAMINATION TYPE: XR KUB DATE OF EXAM: 10/20/2021 8:51 AM CLINICAL HISTORY: Recurrent vomiting TECHNIQUE: Two Upright KUB images of the abdomen are obtained. COMPARISON: None. FINDINGS: Air-fluid level in nondistended stomach. Some gas filled but nondilated small and large bow el loops with air-fluid levels throughout the right and central abdomen, nonspecific finding. Stimula tor device overlies the upper pelvis. Focal moderate disc space narrowing with spurring and sclerosis L3-L4 level. Transitional-type vertebra noted. Single right-sided pelvic phlebolith. Lung bases not included in image. IMPRESSION: Overall nonspecific but favor nonobstructive bowel gas pattern.
[2021-10-20 12:08] LABS: Glucose,Whole Blood 454 mg/dL (70-110)
[2021-10-20] MEDS: INSULIN ASPART (NovoLOG) 100 UNIT/ML VIAL SQ SCH ×3 (12:12→22:26)
[2021-10-20] MEDS: POTASSIUM CHLORIDE ER 20 MEQ TAB.ER PO SCH ×4 (12:13→22:27)
[2021-10-20 16:48] LABS: Glucose,Whole Blood 73 mg/dL (70-110)
[2021-10-20] MEDS: cloZAPine 100 MG TAB PO SCH (20:35)
[2021-10-20 21:52] LABS: Glucose,Whole Blood 237 mg/dL (70-110)
[2021-10-21 03:13] LABS: Basophils % (A) 0 %; Eosinophils % (A) 0 %; HCT 36.1 % (34.0-46.0); HGB 11.2 gm/dL (11.4-16.0); Lymphocytes # (A) 0.8 k/uL (1.0-4.8); Lymphocytes % (A) 18 %; MCH 27.7 pg (25.0-35.0); MCV 89.2 fL (80.0-100.0); Monocytes # (A) 0.3 k/uL (0-1.0); Monocytes % (A) 6 %; Neutrophils # (A) 3.4 k/uL (1.3-7.7); Neutrophils % (A) 75 %; Platelet Count 193 k/uL (150-450); RBC 4.04 m/uL (3.80-5.40); RDW 14.1 % (11.5-15.5); WBC 4.6 k/uL (3.8-10.6)
[2021-10-21 03:25] LABS: ALT 17 U/L (4-34); AST 21 U/L (14-36); African American GFR (CKD) >90 (>60 ml/min/1.73 sqM); Albumin 3.1 g/dL (3.5-5.0); Alkaline Phosphatase 73 U/L (38-126); Anion Gap 8 mmol/L; Blood Urea Nitrogen 10 mg/dL (7-17); Carbon Dioxide 25 mmol/L (22-30); Chloride 108 mmol/L (98-107); Glucose 234 mg/dL (74-99); Magnesium 2.1 mg/dL (1.6-2.3); Non-African American GFR(CKD) 79 (>60 ml/min/1.73 sqM); Potassium 4.6 mmol/L (3.5-5.1); Sodium 141 mmol/L (137-145); Total Bilirubin 0.2 mg/dL (0.2-1.3); Total Protein 5.4 g/dL (6.3-8.2)
[2021-10-21 06:12] LABS: Glucose,Whole Blood 187 mg/dL (70-110)
[2021-10-21] MEDS: INSULIN ASPART (NovoLOG) 100 UNIT/ML VIAL SQ SCH ×5 (07:05→21:00)
[2021-10-21] MEDS ORDERED: FAMOTIDINE 20 MG/2 ML VIAL IV SCH (09:00)
[2021-10-21] MEDS: ATORVASTATIN 40 MG TAB PO SCH (09:05)
[2021-10-21] MEDS: TAMSULOSIN 0.4 MG CAP.ER.24H PO SCH (09:06)
[2021-10-21] MEDS: APIXABAN 5 MG TAB PO SCH ×2 (09:06→21:02)
[2021-10-21] MEDS: SYMBICORT 160-4.5 MCG INHALER INHALATION SCH ×2 (09:10→19:45)
[2021-10-21] MEDS ORDERED: ACETAMINOPHEN TAB 325 MG TAB PO PRN (09:10)
[2021-10-21 12:05] LABS: Glucose,Whole Blood 346 mg/dL (70-110)
[2021-10-21] MEDS ORDERED: DEXTROSE 50% SYRINGE 50 ML IVP PRN ×2 (12:06)
--- NOTE | 2021-10-21 12:15 | P.PN ---
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 This morning she did not vomit area she was complaining of from some periumbilical pain with vomiting. She says t hat she has a "ball movement and it looks alright to her. Has bowel movements was just when she came to emergency room. She denies chest pain or dyspnea. No headache or weakness or numbness. This morning she has been complaining from dysuria. Patient is a non-history of neurogenic bladder and she straight cath herself twice a day as she states. She smokes about 1 pack per day, last smoked 2 days ago, she was counseled to quit and she agrees but she declines nicotine patch. She denies alcohol or illicit drugs. Patient states that she has a psychiatrist Dr. Webb as an outpatient, last saw him about 2-4 weeks ago, she states she is doing well, she denies hallucination or delusions or suicidal or homicidal ideation however she thought she saw her , also she thought she saw her Away while she was next to her, this could be delusional thoughts Vital signs stable, patient is tachycardic on admission 101-112. Patient is afebrile. On admission she has leukocytosis of 12.7 K. INR is 1.3. D-dimer 0.6. Potassium 3.1, creatinine 1.1, glucose is more than 300 Calcium 7.1 at 6.2 which were low, magnesium level less than 0.4. Liver enzymes not elevated. Urine analysis is highly suspicious for infection and urine culture is pending. EKG showed sinus tachycardia at [address]-T changes. CTA of the chest: No evidence of pulmonary embolism, right thyroid gland nodule correlated with thyroid ultrasound CT of the head of the neck: Negative for acute fracture or dislocation. No acute intracranial lesion Chest x-ray: No acute process Emergency room patient received normal saline, lidocaine patch, calcium gluconate, Zofran, potassium replacement and ceftriaxone 10/21/2021. Patient is eating well with no more abdominal pain but she does not have bowel movement yet. She still has Taylor catheter and clear in urine in the bag. She still be treated for UTI with culture growing gram-negative bacilli. She is on ceftriaxone TSH is very low but free T4 is normal. Patient informed about her Midline and recommendation for follow-up as an outpatient. Magnesium level back to normal today. Patient asking of her Taylor catheter can be discontinued. We will check PVR Objective - Vital Signs Vital signs: Vital Signs Temp 97.9 F 10/21/21 08:00 Pulse 96 10/21/21 08:00 Resp 18 10/21/21 08:00 BP 112/75 10/21/21 08:00 Pulse Ox 95 10/21/21 08:00 FiO2 Intake & Output 10/20/21 10/21/21 10/21/21 18:59 06:59 18:59 Intake Total 750 Output Total 2300 5550 Balance -2300 -4800 Weight 74.389 kg Intake: Intake, IV Titration 750 Amount Sodium Chloride 0.9% 1, 750 000 ml @ 130 mls/hr IV . Q7H42M [facility] Rx#:[id number] Output: Urine 2300 5550 Uretheral (Taylor) 1700 2300 Other: Voiding Method Indwelling Catheter Indwelling Catheter - Exam GENERAL: The patient is alert and oriented x3, not in any acute distress. Well developed, well nourished. HEENT: Pupils are round and equally reacting to light. EOMI. No scleral icterus. No conjunctival pallor. Normocephalic, atraumatic. No pharyngeal erythema. No thyromegaly. CARDIOVASCULAR: S1 and S2 present. No murmurs, rubs, or gallops. PULMONARY: Chest is clear to auscultation, no wheezing or crackles. ABDOMEN: Soft, nontender, nondistended, normoactive bowel sounds. No palpable organomegaly. MUSCULOSKELETAL: No joint swelling or deformity. EXTREMITIES: No cyanosis, clubbing, or pedal edema. NEUROLOGICAL: Gross neurological examination did not reveal any focal deficits. SKIN: No rashes. no petechiae. - Labs CBC & Chem 7: 10/21/21 02:50 10/21/21 02:50 Labs: Abnormal Lab Results - Last 24 Hours (Table) 10/19/21 10/20/21 10/20/21 Range/Units 18:07 15:00 21:50 Hgb (11.4-16.0) gm/dL Lymphocytes # (1.0-4.8) k/uL Potassium 3.4 L (3.5-5.1) mmol/L Chloride (98-107) mmol/L Glucose (74-99) mg/dL POC Glucose (mg/dL) 237 H (70-110) mg/dL Hemoglobin A1c 8.0 H (0.0-6.0) % Calcium (8.4-10.2) mg/dL Total Protein (6.3-8.2) g/dL Albumin (3.5-5.0) g/dL TSH (0.465-4.680) mIU/L 10/21/21 10/21/21 10/21/21 Range/Units 02:50 02:50 06:11 Hgb 11.2 L (11.4-16.0) gm/dL Lymphocytes # 0.8 L (1.0-4.8) k/uL Potassium (3.5-5.1) mmol/L Chloride 108 H (98-107) mmol/L Glucose 234 H (74-99) mg/dL POC Glucose (mg/dL) 187 H (70-110) mg/dL Hemoglobin A1c (0.0-6.0) % Calcium 7.0 L (8.4-10.2) mg/dL Total Protein 5.4 L (6.3-8.2) g/dL Albumin 3.1 L (3.5-5.0) g/dL TSH <0.015 L (0.465-4.680) mIU/L 10/21/21 Range/Units 12:03 Hgb (11.4-16.0) gm/dL Lymphocytes # (1.0-4.8) k/uL Potassium (3.5-5.1) mmol/L Chloride (98-107) mmol/L Glucose (74-99) mg/dL POC Glucose (mg/dL) 346 H (70-110) mg/dL Hemoglobin A1c (0.0-6.0) % Calcium (8.4-10.2) mg/dL Total Protein (6.3-8.2) g/dL Albumin (3.5-5.0) g/dL TSH (0.465-4.680) mIU/L Microbiology - Last 24 Hours (Table) 10/19/21 18:57 Urine Culture - Preliminary Urine,Voided Gram Neg Bacilli 10/20/21 07:45 Blood Culture - Preliminary Blood No Growth after 24 hours 10/20/21 08:00 Blood Culture - Preliminary Blood No Growth after 24 hours Assessment and Plan Assessment: Acute urinary tract infection, failed outpatient treatment. 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 Patient informed about her thyroid nodule and the need to follow up as an outpatient and she verbalized understanding and asked Check bladder scan and place Taylor if needed Labs and medication were reviewed.. Continue same treatment. Continue with symptomatic treatment. Resume home medication. Monitor lytes and vitals. DVT and GI prophylaxis. Further recommendations as per clinical course of the fela nt DVT prophylaxis:Eliquis GI Prophylaxis: Pepcid PT/OT: Pending Prognosis is guarded
[2021-10-21] MEDS: SODIUM CHLORIDE 0.9% 1,000 ML IV SCH ×2 (12:58→17:33)
[2021-10-21 17:05] LABS: Glucose,Whole Blood 318 mg/dL (70-110)
[2021-10-21] MEDS: metFORMIN 500 MG TAB PO SCH (17:31)
[2021-10-21 19:55] LABS: Glucose,Whole Blood 202 mg/dL (70-110)
[2021-10-21] MEDS: cloZAPine 100 MG TAB PO SCH (21:02)
[2021-10-21] MEDS: FAMOTIDINE 20 MG TAB PO SCH (21:02)
[2021-10-22] MEDS: SODIUM CHLORIDE 0.9% 1,000 ML IV SCH ×3 (02:19→17:43)
[2021-10-22 06:17] LABS: Glucose,Whole Blood 161 mg/dL (70-110)
[2021-10-22] MEDS: metFORMIN 500 MG TAB PO SCH ×2 (06:52→17:39)
[2021-10-22] MEDS: INSULIN ASPART (NovoLOG) 100 UNIT/ML VIAL SQ SCH ×4 (06:52→22:09)
[2021-10-22] MEDS: SYMBICORT 160-4.5 MCG INHALER INHALATION SCH (08:12)
[2021-10-22 08:39] LABS: Basophils % (A) 0 %; Eosinophils % (A) 0 %; HCT 39.3 % (34.0-46.0); Lymphocytes # (A) 1.3 k/uL (1.0-4.8); Lymphocytes % (A) 18 %; MCH 27.3 pg (25.0-35.0); MCHC 30.6 g/dL (31.0-37.0); MCV 89.3 fL (80.0-100.0); Mean Platelet Volume 8.2; Monocytes # (A) 0.3 k/uL (0-1.0); Monocytes % (A) 4 %; Neutrophils # (A) 5.3 k/uL (1.3-7.7); Neutrophils % (A) 77 %; Platelet Count 215 k/uL (150-450); WBC 6.8 k/uL (3.8-10.6)
[2021-10-22 08:48] LABS: Calcium 7.9 mg/dL (8.4-10.2); Magnesium 1.7 mg/dL (1.6-2.3); Potassium 4.6 mmol/L (3.5-5.1)
[2021-10-22] MEDS ORDERED: fluPHENAZine DECANOATE 25 MG/ML 5ML MDV IM SCH (09:00)
[2021-10-22] MEDS: cloZAPine 100 MG TAB PO SCH ×2 (09:45→22:08)
[2021-10-22] MEDS: APIXABAN 5 MG TAB PO SCH ×2 (09:47→22:08)
[2021-10-22] MEDS: FAMOTIDINE 20 MG TAB PO SCH ×2 (09:47→22:09)
[2021-10-22] MEDS: TAMSULOSIN 0.4 MG CAP.ER.24H PO SCH (09:48)
[2021-10-22] MEDS: ATORVASTATIN 40 MG TAB PO SCH (09:48)
[2021-10-22] MEDS ORDERED: IPRATROPIUM-ALBUTEROL 3 ML NEB INHALATION STA (10:36)
--- NOTE | 2021-10-22 10:43 | P.PN ---
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 This morning she did not vomit area she was complaining of from some periumbilical pain with vomiting. She says t hat she has a "ball movement and it looks alright to her. Has bowel movements was just when she came to emergency room. She denies chest pain or dyspnea. No headache or weakness or numbness. This morning she has been complaining from dysuria. Patient is a non-history of neurogenic bladder and she straight cath herself twice a day as she states. She smokes about 1 pack per day, last smoked 2 days ago, she was counseled to quit and she agrees but she declines nicotine patch. She denies alcohol or illicit drugs. Patient states that she has a psychiatrist Dr. Webb as an outpatient, last saw him about 2-4 weeks ago, she states she is doing well, she denies hallucination or delusions or suicidal or homicidal ideation however she thought she saw her , also she thought she saw her Away while she was next to her, this could be delusional thoughts Vital signs stable, patient is tachycardic on admission 101-112. Patient is afebrile. On admission she has leukocytosis of 12.7 K. INR is 1.3. D-dimer 0.6. Potassium 3.1, creatinine 1.1, glucose is more than 300 Calcium 7.1 at 6.2 which were low, magnesium level less than 0.4. Liver enzymes not elevated. Urine analysis is highly suspicious for infection and urine culture is pending. EKG showed sinus tachycardia at [address]-T changes. CTA of the chest: No evidence of pulmonary embolism, right thyroid gland nodule correlated with thyroid ultrasound CT of the head of the neck: Negative for acute fracture or dislocation. No acute intracranial lesion Chest x-ray: No acute process Emergency room patient received normal saline, lidocaine patch, calcium gluconate, Zofran, potassium replacement and ceftriaxone 10/21/2021. Patient is eating well with no more abdominal pain but she does not have bowel movement yet. She still has Taylor catheter and clear in urine in the bag. She still be treated for UTI with culture growing gram-negative bacilli. She is on ceftriaxone TSH is very low but free T4 is normal. Patient informed about her Midline and recommendation for follow-up as an outpatient. Magnesium level back to normal today. Patient asking of her Taylor catheter can be discontinued. We will check PVR 06/23/2011 Patient has good appetite and eating well she's awake, she does not have much abdominal pain but has no bowel movement yet. Still has Taylor catheter in place and it was discontinued Patient has all her psychiatric medication ordered, confirmed with bedside nurse. She does not have any psychiatric illness, no hallucination or up as the scope was passed, no depression or michelle. She does not feel she needs to see a psychiatrist. Patient however noticed to be little bit tachypneic she used to smoke 1 pack per day the last week. She is a little wheezing. We don't to start her on inhalers steroids and dounebs Objective - Vital Signs Vital signs: Vital Signs Temp 98.2 F 10/22/21 08:00 Pulse 86 10/22/21 08:00 Resp 16 10/22/21 08:00 BP 118/75 10/22/21 08:00 Pulse Ox 94 L 10/22/21 08:00 FiO2 Intake & Output 10/21/21 10/22/21 10/22/21 18:59 06:59 18:59 Intake Total 720 Output Total 1200 6225 525 Balance -1200 -6225 195 Intake: Oral 720 Output: Urine 1200 6225 525 Uretheral (Taylor) 300 Other: Voiding Method Indwelling Catheter Indwelling Catheter Indwelling Catheter # Voids 0 # Bowel Movements 0 - Exam GENERAL: The patient is alert and oriented x3, not in any acute distress. Well developed, well nourished. HEENT: Pupils are round and equally reacting to light. EOMI. No scleral icterus. No conjunctival pallor. Normocephalic, atraumatic. No pharyngeal erythema. No thyromegaly. CARDIOVASCULAR: S1 and S2 present. No murmurs, rubs, or gallops. PULMONARY: Chest is clear to auscultation, no wheezing or crackles. ABDOMEN: Soft, nontender, nondistended, normoactive bowel sounds. No palpable organomegaly. MUSCULOSKELETAL: No joint swelling or deformity. EXTREMITIES: No cyanosis, clubbing, or pedal edema. NEUROLOGICAL: Gross neurological examination did not reveal any focal deficits. SKIN: No rashes. no petechiae. - Labs CBC & Chem 7: 10/22/21 07:53 10/22/21 07:53 Labs: Abnormal Lab Results - Last 24 Hours (Table) 10/21/21 10/21/21 10/21/21 Range/Units 12:03 17:03 19:54 MCHC (31.0-37.0) g/dL Glucose (74-99) mg/dL POC Glucose (mg/dL) 346 H 318 H 202 H (70-110) mg/dL Calcium (8.4-10.2) mg/dL 10/22/21 10/22/21 10/22/21 Range/Units 06:16 07:53 07:53 MCHC 30.6 L (31.0-37.0) g/dL Glucose 147 H (74-99) mg/dL POC Glucose (mg/dL) 161 H (70-110) mg/dL Calcium 7.9 L (8.4-10.2) mg/dL Microbiology - Last 24 Hours (Table) 10/20/21 07:45 Blood Culture - Preliminary Blood No Growth after 48 hours 10/20/21 08:00 Blood Culture - Preliminary Blood No Growth after 48 hours 10/19/21 18:57 Urine Culture - Preliminary Urine,Voided Gram Neg Bacilli Assessment and Plan Assessment: Acute urinary tract infection, failed outpatient treatment. 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 Also she told me her doctor is aware about her thyroid gland I still recommend that she follow up with her PCP Dr. Stuart in 1 week after discharge regarding this and to check thyroid function tests and she agrees also she may be referred to donor relations associate Dr. Crouch or Dr. Nascimento as an outpatient and she currently took note of these Patient informed about her thyroid nodule and the need to follow up as an outpatient and she verbalized understanding and asked Check bladder scan and place Taylor if needed Labs and medication were reviewed.. Continue same treatment. Continue with symptomatic treatment. Resume home medication. Monitor lytes and vitals. DVT and GI prophylaxis. Further recommendations as per clinical course of the patient DVT prophylaxis:Eliquis GI Prophylaxis: Pepcid PT/OT: Pending Prognosis is guarded
[2021-10-22 12:04] LABS: Glucose,Whole Blood 217 mg/dL (70-110)
[2021-10-22 17:03] LABS: Glucose,Whole Blood 317 mg/dL (70-110)
[2021-10-22 19:54] LABS: Glucose,Whole Blood 265 mg/dL (70-110)
[2021-10-22] MEDS: BUDESONIDE 1 MG/2 ML NEBU INHALATION SCH (20:48)
[2021-10-23] MEDS: SODIUM CHLORIDE 0.9% 1,000 ML IV SCH ×2 (02:36→18:48)
[2021-10-23 06:20] LABS: Glucose,Whole Blood 203 mg/dL (70-110)
[2021-10-23] MEDS: INSULIN ASPART (NovoLOG) 100 UNIT/ML VIAL SQ SCH ×4 (06:48→20:27)
[2021-10-23] MEDS: metFORMIN 500 MG TAB PO SCH ×2 (06:48→17:40)
[2021-10-23] MEDS: IPRATROPIUM-ALBUTEROL 3 ML NEB INHALATION PRN (08:28)
[2021-10-23] MEDS: BUDESONIDE 1 MG/2 ML NEBU INHALATION SCH ×2 (08:28→20:18)
[2021-10-23] MEDS: FAMOTIDINE 20 MG TAB PO SCH ×2 (08:59→20:28)
[2021-10-23] MEDS: ATORVASTATIN 40 MG TAB PO SCH (08:59)
[2021-10-23] MEDS: TAMSULOSIN 0.4 MG CAP.ER.24H PO SCH (08:59)
[2021-10-23] MEDS: APIXABAN 5 MG TAB PO SCH ×2 (08:59→20:28)
[2021-10-23 12:24] LABS: Glucose,Whole Blood 218 mg/dL (70-110)
[2021-10-23] MEDS: METOPROLOL TARTRATE 25 MG TAB PO SCH ×2 (13:32→20:29)
--- NOTE | 2021-10-23 13:46 | XR ---
EXAMINATION TYPE: XR chest 1V DATE OF EXAM: 10/23/2021 1:19 PM COMPARISON: Chest radiographs from 10/19/2021 TECHNIQUE: XR chest 1V Frontal view of the chest. CLINICAL INDICATION:Female, 55 years old with history of CHF; FINDINGS: Lungs/Pleura: There is no evidence of pleural effusion, focal consolidation, or pneumothorax. Pulmonary vascularity: Unremarkable. Heart/mediastinum: Cardiomediastinal silhouette is unremarkable. Musculoskeletal: No acute osseous pathology. IMPRESSION: No acute cardiopulmonary disease/process.
--- NOTE | 2021-10-23 16:20 | P.PN ---
Subjective Progress Note Date: 10/23/21 Patient is evaluated today sitting up in the bed she would like to go home. Indwelling catheter remains in place, ok to discontinue, she does have history of neurogenic bladder and strait caths herself at home. Her urologist is Dr. Sophia cuellar in [place]. Patient continues with significant tachycardia in the 120-140s and has been started on metoprolol. Patient had an echocardiogram completed in July of this year, showing moderate left ventricular hypertrophy, with preserved LV function and mild tricuspid regurgitation. Chest xray completed shows no acute cardiopulmonary process. Patient continues on IV rocephin for klebsiella UTI. Blood culture remains negative. IV fluids stopped. Review of Systems Constitutional: Denied any fatigue denied any fever. Cardio vascular: denied any chest pain, palpitations Gastrointestinal: denied any nausea, vomiting, diarrhea Pulmonary: Denied any shortness of breath cough Neurologic denied any new focal deficits All inpatient medications were reviewed and appropriate changes in these medications as dictated in the interval history and assessment and plan. PHYSICAL EXAMINATION: GENERAL: The patient is alert and oriented x3, not in any acute distress. Well developed, well nourished. HEENT: Pupils are round and equally reacting to light. EOMI. No scleral icterus. No conjunctival pallor. Normocephalic, atraumatic. No pharyngeal erythema. No thyromegaly. CARDIOVASCULAR: S1 and S2 present. No murmurs, rubs, or gallops. PULMONARY: Chest is clear to auscultation, no wheezing or crackles. ABDOMEN: Soft, nontender, nondistended, normoactive bowel sounds. No palpable organomegaly. MUSCULOSKELETAL: No joint swelling or deformity. EXTREMITIES: No cyanosis, clubbing, or pedal edema. NEUROLOGICAL: Gross neurological examination did not reveal any focal deficits. SKIN: No rashes. Assessment and Plan Assessment Acute urinary tract infection, failed outpatient treatment. Most likely related to neurogenic bladder of catheterization. 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 Dr. Bernardo MD I have performed a history and physical examination and medical decision making of this patient, discussed the same with the dictator, and agree with the dictators assessment and plan as written, documented as a scribe. Based on total visit time, I have performed more than 50% of this visit. Objective - Vital Signs Vital signs: Vital Signs Temp 98.0 F 10/23/21 08:00 Pulse 130 H 10/23/21 12:00 Resp 16 10/23/21 12:00 BP 128/83 10/23/21 12:00 Pulse Ox 93 L 10/23/21 12:00 FiO2 Intake & Output 10/22/21 10/23/21 10/23/21 18:59 06:59 18:59 Intake Total 2395 0 675 Output Total 4775 3100 2075 Balance -2380 -3100 -1400 Intake: Oral 2395 0 675 Output: Urine 4775 3100 2075 Other: Voiding Method Indwelling Catheter Indwelling Catheter Indwelling Catheter - Labs CBC & Chem 7: 10/22/21 07:53 10/22/21 07:53 Labs: Abnormal Lab Results - Last 24 Hours (Table) 10/22/21 10/22/21 10/23/21 Range/Units 16:54 19:53 06:18 POC Glucose (mg/dL) 317 H 265 H 203 H (70-110) mg/dL 10/23/21 Range/Units 12:04 POC Glucose (mg/dL) 218 H (70-110) mg/dL Microbiology - Last 24 Hours (Table) 10/20/21 08:00 Blood Culture - Preliminary Blood No Growth after 72 hours 10/20/21 07:45 Blood Culture - Preliminary Blood No Growth after 72 hours 10/19/21 18:57 Urine Culture - Final Urine,Voided Klebsiella pneumoniae Assessment and Plan Time with Patient: Less than 30
[2021-10-23 17:21] LABS: Glucose,Whole Blood 202 mg/dL (70-110)
[2021-10-23 19:50] LABS: Glucose,Whole Blood 237 mg/dL (70-110)
[2021-10-23] MEDS: cloZAPine 100 MG TAB PO SCH (20:28)
[2021-10-24 06:28] LABS: Glucose,Whole Blood 230 mg/dL (70-110)
[2021-10-24] MEDS: metFORMIN 500 MG TAB PO SCH ×2 (06:48→16:58)
[2021-10-24] MEDS: INSULIN ASPART (NovoLOG) 100 UNIT/ML VIAL SQ SCH ×6 (06:49→20:26)
[2021-10-24] MEDS: BUDESONIDE 1 MG/2 ML NEBU INHALATION SCH ×2 (08:26→19:43)
[2021-10-24] MEDS: IPRATROPIUM-ALBUTEROL 3 ML NEB INHALATION PRN ×2 (08:26→19:43)
[2021-10-24] MEDS: ATORVASTATIN 40 MG TAB PO SCH (09:03)
[2021-10-24] MEDS: APIXABAN 5 MG TAB PO SCH ×2 (09:03→20:25)
[2021-10-24] MEDS: FAMOTIDINE 20 MG TAB PO SCH ×2 (09:03→20:27)
[2021-10-24] MEDS: METOPROLOL TARTRATE 25 MG TAB PO SCH (09:03)
[2021-10-24] MEDS: TAMSULOSIN 0.4 MG CAP.ER.24H PO SCH (09:03)
[2021-10-24] MEDS ORDERED: METOPROLOL TARTRATE 25 MG TAB PO STA (09:10)
[2021-10-24 11:44] LABS: Glucose,Whole Blood 317 mg/dL (70-110)
--- NOTE | 2021-10-24 16:12 | P.PN ---
Subjective Progress Note Date: 10/24/21 Patient is evaluated today sitting up in the bed she would like to go home. Indwelling catheter remains in place, ok to discontinue, she does have history of neurogenic bladder and strait caths herself at home. Her urologist is Dr. Sophia cuellar in [place]. Patient continues with significant tachycardia in the 120-140s and has been started on metoprolol. Patient had an echocardiogram completed in July of this year, showing moderate left ventricular hypertrophy, with preserved LV function and mild tricuspid regurgitation. Chest xray completed shows no acute cardiopulmonary process. Patient continues on IV rocephin for klebsiella UTI. Blood culture remains negative. IV fluids stopped. 10/24/2021 Patient evaluated today resting in bed. She does continue with indwelling catheter which she strait caths at home and patient can discontinue the catheter prior to discharge. Plan is for PT re-evaluation tomorrow. Discussed plan of care with patients sister on the phone who is legal guardian and she will arrange to sheepskin pickler patients medications from [facility] tomorrow. Pending repeat TSH and T4. Discussed A1C of 8.0 with patients sister as well and medications adjustments. Will give information for outpatient diabetic education as well. Review of Systems Constitutional: Denied any fatigue denied any fever. Cardio vascular: denied any chest pain, palpitations Gastrointestinal: denied any nausea, vomiting, diarrhea Pulmonary: Denied any shortness of breath cough Neurologic denied any new focal deficits All inpatient medications were reviewed and appropriate changes in these medications as dictated in the interval history and assessment and plan. PHYSICAL EXAMINATION: GENERAL: The patient is alert and oriented x3, not in any acute distress. Well developed, well nourished. HEENT: Pupils are round and equally reacting to light. EOMI. No scleral icterus. No conjunctival pallor. Normocephalic, atraumatic. No pharyngeal erythema. No thyromegaly. CARDIOVASCULAR: S1 and S2 present. No murmurs, rubs, or gallops. PULMONARY: Chest is clear to auscultation, no wheezing or crackles. ABDOMEN: Soft, nontender, nondistended, normoactive bowel sounds. No palpable organomegaly. MUSCULOSKELETAL: No joint swelling or deformity. EXTREMITIES: No cyanosis, clubbing, or pedal edema. NEUROLOGICAL: Gross neurological examination did not reveal any focal deficits. SKIN: No rashes. Assessment and Plan Assessment Acute urinary tract infection, failed outpatient treatment. Most likely related to neurogenic bladder of catheterization. 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 Sister agrees with DC tomorrow and would like PT Re-evaluation prior to returning home as patient does live by herself. The impression and plan of care has been dictated by Mariana Zapata, Nurse Practitioner as directed. Dr. Bernardo MD I have performed a history and physical examination and medical decision making of this patient, discussed the same with the dictator, and agree with the dictators assessment and plan as written, documented as a scribe. Based on total visit time, I have performed more than 50% of this visit. Objective - Vital Signs Vital signs: Vital Signs Temp 98.2 F 10/24/21 08:00 Pulse 82 10/24/21 14:00 Resp 18 10/24/21 12:00 BP 116/87 10/24/21 12:00 Pulse Ox 93 L 10/24/21 12:00 FiO2 Intake & Output 10/23/21 10/24/21 10/24/21 18:59 06:59 18:59 Intake Total 2150 1000 480 Output Total 2075 3325 1350 Balance 75 -3446 -870 Intake: Oral 2150 1000 480 Output: Urine 2075 3325 1350 Other: Voiding Method Indwelling Catheter Indwelling Catheter Indwelling Catheter - Labs CBC & Chem 7: 10/22/21 07:53 10/22/21 07:53 Labs: Abnormal Lab Results - Last 24 Hours (Table) 10/23/21 10/23/21 10/24/21 Range/Units 17:19 19:48 06:27 POC Glucose (mg/dL) 202 H 237 H 230 H (70-110) mg/dL 10/24/21 Range/Units 11:42 POC Glucose (mg/dL) 317 H (70-110) mg/dL Microbiology - Last 24 Hours (Table) 10/20/21 08:00 Blood Culture - Preliminary Blood No Growth after 96 hours 10/20/21 07:45 Blood Culture - Preliminary Blood No Growth after 96 hours Assessment and Plan Time with Patient: Less than 30
[2021-10-24 16:41] LABS: Glucose,Whole Blood 127 mg/dL (70-110)
[2021-10-24 20:01] LABS: Glucose,Whole Blood 209 mg/dL (70-110)
[2021-10-24] MEDS: INSULIN DETEMIR (LEVEMIR) 100 UNIT/ML SYR SQ SCH (20:24)
[2021-10-24] MEDS: METOPROLOL TARTRATE 50 MG TAB PO SCH (20:25)
[2021-10-24] MEDS: cloZAPine 100 MG TAB PO SCH (20:26)
[2021-10-24] MEDS ORDERED: INSULIN DETEMIR (LEVEMIR) 100 UNIT/ML SYR SQ SCH (21:00)
[2021-10-25 06:17] LABS: Glucose,Whole Blood 214 mg/dL (70-110)
[2021-10-25] MEDS: INSULIN ASPART (NovoLOG) 100 UNIT/ML VIAL SQ SCH ×7 (06:21→21:05)
[2021-10-25] MEDS: metFORMIN 500 MG TAB PO SCH ×2 (06:23→17:09)
[2021-10-25 08:37] LABS: African American GFR (CKD) 67 (>60 ml/min/1.73 sqM); Anion Gap 11 mmol/L; Blood Urea Nitrogen 29 mg/dL (7-17); Calcium 9.5 mg/dL (8.4-10.2); Carbon Dioxide 28 mmol/L (22-30); Chloride 98 mmol/L (98-107); Glucose 188 mg/dL (74-99); Magnesium 1.6 mg/dL (1.6-2.3); Non-African American GFR(CKD) 58 (>60 ml/min/1.73 sqM); Potassium 4.7 mmol/L (3.5-5.1); Sodium 137 mmol/L (137-145)
[2021-10-25] MEDS: METOPROLOL TARTRATE 50 MG TAB PO SCH (09:47)
[2021-10-25] MEDS: TAMSULOSIN 0.4 MG CAP.ER.24H PO SCH (09:51)
[2021-10-25] MEDS: FAMOTIDINE 20 MG TAB PO SCH (09:51)
[2021-10-25] MEDS: ATORVASTATIN 40 MG TAB PO SCH (09:51)
[2021-10-25] MEDS: MAGNESIUM SULFATE-D5W PMX 1 GM in DEXTROSE/WATER 1 100ML.BAG IVPB SCH ×2 (09:52→10:59)
[2021-10-25] MEDS: APIXABAN 5 MG TAB PO SCH ×2 (09:52→21:04)
[2021-10-25 09:54] LABS: T4, Free (Free Thyroxine) 1.22 ng/dL (0.78-2.19)
[2021-10-25] MEDS: IPRATROPIUM-ALBUTEROL 3 ML NEB INHALATION PRN (11:18)
[2021-10-25] MEDS: BUDESONIDE 1 MG/2 ML NEBU INHALATION SCH ×2 (11:19→19:44)
[2021-10-25 11:57] LABS: Glucose,Whole Blood 250 mg/dL (70-110)
--- NOTE | 2021-10-25 13:19 | P.DS ---
Providers Date of admission: 10/20/21 04:01 Attending physician: Jorge Guerrier Primary care physician: Gamal Narciso [facility] Course: Diagnosis Acute urinary tract infection with klebsiella pneumoniae, failed outpatient treatment. Most likely related to neurogenic bladder of catheterization. 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 Patient does have dual legal guardianship by sisters. Patient will discharge on 5 more days of oral ciprofloxacin antibiotics for acute UTI. Continue with strait catheterizing as previous. Repeat BMP and magnesium level in 2 to 3 days. Patient will need to follow up with endocrinology on discharge regarding thyroid nodule. 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 This morning she did not vomit area she was complaining of from some periumbilical pain with vomiting. She says that she has a "bowel movement and it looks alright to her" the day of admission. She denies chest pain or dyspnea. No headache or weakness or numbness. Patient also complains of dysuria. Patient is a non-history of neurogenic bladder and she straight cath herself twice a day as she states. She smokes about 1 pack per day, last smoked 2 days ago, she was counseled to quit and she agrees but she declines nicotine patch. She denies alcohol or illicit drugs. Patient states that she has a psychiatrist Dr. Webb as an outpatient, last saw him about 2-4 weeks ago, she states she is doing well, she denies hallucination or delusions or suicidal or homicidal ideation however she thought she saw her who has 2 years ago. Initial diagnostic work up shows leukocytosis of 12.7 K. INR is 1.3. D-dimer 0.6. Potassium 3.1, creatinine 1.1, glucose is more than 300 Calcium 7.1 at 6.2 which were low, magnesium level less than 0.4. Liver enzymes not elevated. Urine analysis is highly suspicious for infection and urine culture was positive for klebsielly pneumoniae. EKG showed sinus tachycardia at [address]-T changes. CTA of the chest: No evidence of pulmonary embolism, right thyroid gland nodule correlated with thyroid ultrasound CT of the head of the neck: Negative for acute fracture or dislocation. No acute intracranial lesion Chest x-ray: No acute process Emergency room patient received normal saline, lidocaine patch, calcium gluconate, Zofran, potassium replacement and ceftriaxone Patient also had thyroid hormones checked showing TSH 0.024, and free T4 1.22. Recommend to see endocrinology outpatient for further workup. Patient was admittted to the hospital was continued on IV ceftriaxone while inpatient and will finish course of antibiotic therapy for UTI with oral ciprofloxacin. She also had follow up KUB done showing overall nonobstructive bowel gas pattern. She also had follow up chest xray done showing again no acute cardiopulmonary disease. Toprol Xl was initially held on admission patient did have tachycardia which improved with oral metoprolol which will be continued twice a day on discharge. Heart rate is now in the 80s normal sinus rhythm. Patient was evaluated by PT/OT who recommended subacute rehab versus home with homecare pending clinical course. Although encouraged patient did not ambulate much over the weekend and was using the bedside commode only. PT re evaluated patient and now recommending subacute rehab on discharge. 10/25/2021 Patient evaluated today sitting in bed. Continues with indwelling catheter which can be removed prior to discharge. Patient denies chest pain, no shortness of breath. Denies abdominal pain, denies nausea, vomiting, diarrhea. Tolerating diet, bowels are moving. Denies dysuria. Mentation has improved, she does have some generalized weakness no focal weakness and will require rehab on discharge. Her lungs are clear, S1 S2 auscultated, abdomen is soft and nontender. Most recent labs showing white count 6.8, hgb 12.0, sodium 137, potassium 4.7, BUN 29, creatinine 1.07, magnesium 1.6. Patient to receive IV magnesium prior to discharge and will repeat BMP and Mag outpatient in 2 to 3 days. Vital signs today, temperature 97.9, herat rate 78, blood pressure 112/73, 93% room air. She also had hyperglycemia and A1C was found to be 8.0, she does take oral hypoglycemic agents at home, most likely noncompliant with diet. She will be discharged on injectable insulin. Plan of care was discussed yesterday with sister Nara who is a co-legal guardian. Agreeable to subacute rehab if recommended. 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 She is anxious to get back to work. She is not safe for discharge home currently based on PT recommendations. Total time taken in discharge planning greater than 35 minutes. Please see medication reconciliation for a list of current medication. Thank you for allowing us to participate in the care of this patient. The impression and plan of care has been dictated by Mariana Zapata, Nurse Practitioner as directed. Dr. Bernardo MD I have performed a history and physical examination and medical decision making of this patient, discussed the same with the dictator, and agree with the dictators assessment and plan as written, documented as a scribe. Based on total visit time, I have performed more than 50% of this visit. Patient Condition at Discharge: Stable Plan - Discharge Summary Discharge Rx Participant: No New Discharge Prescriptions: New Ciprofloxacin HCl [Cipro] 500 mg PO BID 5 Days #10 tab Metoprolol Tartrate [Lopressor] 25 mg PO BID tab Insulin Detemir (Levemir) [Levemir] 15 unit SQ HS each INSULIN ASPART (NovoLOG) [NovoLOG (formulary)] 7 unit SQ AC-TID each INSULIN ASPART (NovoLOG) [NovoLOG (formulary)] 0 unit SQ ACHS each Continue fluPHENAZine decanoate [Prolixin Decanoate] 50 mg IM Q14D cloZAPine [Clozaril] 200 mg PO HS Tamsulosin [Flomax] 0.4 mg PO DAILY Omeprazole 20 mg PO BID Apixaban [Eliquis] 5 mg PO BID Glimepiride [Amaryl] 4 mg PO AC-BID Budesonide/Formoterol Fumarate [Symbicort 160-4.5 Mcg Inhaler] 2 puff INHALATION RT-BID Ipratropium/Albuterol Sulfate [Combivent Respimat Inhaler] 1 puff INHALATION RT-QID Atorvastatin [Lipitor] 40 mg PO DAILY metFORMIN HCL ER [Glucophage XR] 1,000 mg PO DAILY Cholecalciferol [Vitamin D3 (25 Mcg = 1000 Iu)] 25 mcg PO DAILY fluvoxaMINE MALEATE [Luvox] 100 mg PO HS Ondansetron Odt [Zofran ODT] 8 mg PO Q8HR PRN PRN Reason: Nausea sitaGLIPtin [Januvia] 50 mg PO DAILY Discontinued Nitrofurantoin Monohyd/M-Cryst [Macrobid] 100 mg PO BID Metoprolol Succinate (ER) [Toprol Xl] 25 mg PO DAILY Discharge Medication List cloZAPine [Clozaril] 200 mg PO HS 01/21/16 [History] fluPHENAZine decanoate [Prolixin Decanoate] 50 mg IM Q14D 01/21/16 [History] Tamsulosin [Flomax] 0.4 mg PO DAILY 03/13/17 [History] Cholecalciferol [Vitamin D3 (25 Mcg = 1000 Iu)] 25 mcg PO DAILY 07/22/20 [History] Omeprazole 20 mg PO BID 07/22/20 [History] metFORMIN HCL ER [Glucophage XR] 1,000 mg PO DAILY 07/22/20 [History] Apixaban [Eliquis] 5 mg PO BID 10/24/20 [History] Budesonide/Formoterol Fumarate [Symbicort 160-4.5 Mcg Inhaler] 2 puff INHALATION RT-BID 10/24/20 [History] Glimepiride [Amaryl] 4 mg PO AC-BID 10/24/20 [History] Ipratropium/Albuterol Sulfate [Combivent Respimat Inhaler] 1 puff INHALATION RT- QID 10/24/20 [History] fluvoxaMINE MALEATE [Luvox] 100 mg PO HS 10/24/20 [History] Atorvastatin [Lipitor] 40 mg PO DAILY 10/19/21 [History] Ondansetron Odt [Zofran ODT] 8 mg PO Q8HR PRN 10/19/21 [History] sitaGLIPtin [Januvia] 50 mg PO DAILY 10/19/21 [History] Ciprofloxacin HCl [Cipro] 500 mg PO BID 5 Days #10 tab 10/24/21 [Rx] INSULIN ASPART (NovoLOG) [NovoLOG (formulary)] 0 unit SQ ACHS each 10/25/21 [ Rx] INSULIN ASPART (NovoLOG) [NovoLOG (formulary)] 7 unit SQ AC-TID each 10/25/21 [Rx] Insulin Detemir (Levemir) [Levemir] 15 unit SQ HS each 10/25/21 [Rx] Metoprolol Tartrate [Lopressor] 25 mg PO BID tab 10/25/21 [Rx] Follow up Appointment(s)/Referral(s): Fidencio Reyes MD [REFERRING] - 1 Week (thyroid nodule Spoke to Hailey at Dr Reyes's office / they will call patient with follow up appointment. I will fax demographic, labs and last note per Hailey's request. ) Gamal Stuart DO [Primary Care Provider] - 1-2 days Addis Crouch MD [STAFF PHYSICIAN] - 1 Week [facility], [NON-STAFF] - Roby Aranda MD [STAFF PHYSICIAN] - 1 Week Ambulatory/Diagnostic Orders: Basic Metabolic Panel [LAB.AMB] Time Frame: 2 Days, Location: None Selected Magnesium [LAB.AMB] Time Frame: 2 Days, Location: None Selected Activity/Diet/Wound Care/Special Instructions: Patient will discharge to subacute rehab prior to discharge home She does intermittent strait catheterize at home and indwelling catheter can be discontinued prior to discharge to rehab. Patient will discharge on levemir and novolog coverage as her A1C was found to be 8.0 Recommend to see endocrinology outpatient for thryroid nodule. repeat BMP and magnesium levels in 2 to 3 days outpatient Discharge/Stand Alone Forms: Who Do I Call?, Help In The Home Discharge Disposition: TRANSFER TO SNF/ECF
[2021-10-25 16:25] LABS: Glucose,Whole Blood 227 mg/dL (70-110)
[2021-10-25] MEDS: CALCIUM CARBONATE 500 MG CHEWABLE PO PRN (19:09)
[2021-10-25 20:01] LABS: Glucose,Whole Blood 219 mg/dL (70-110)
[2021-10-25] MEDS: METOPROLOL TARTRATE 25 MG TAB PO SCH (21:05)
[2021-10-25] MEDS: cloZAPine 100 MG TAB PO SCH (21:05)
[2021-10-25] MEDS: INSULIN DETEMIR (LEVEMIR) 100 UNIT/ML SYR SQ SCH (21:05)
[2021-10-26] MEDS: INSULIN ASPART (NovoLOG) 100 UNIT/ML VIAL SQ SCH ×7 (07:14→20:18)
[2021-10-26 07:16] LABS: Glucose,Whole Blood 138 mg/dL (70-110)
[2021-10-26] MEDS: metFORMIN 500 MG TAB PO SCH ×2 (07:16→17:10)
[2021-10-26] MEDS: FAMOTIDINE 20 MG TAB PO SCH (08:10)
[2021-10-26] MEDS: METOPROLOL TARTRATE 25 MG TAB PO SCH ×2 (08:10→20:20)
[2021-10-26] MEDS: TAMSULOSIN 0.4 MG CAP.ER.24H PO SCH (08:10)
[2021-10-26] MEDS: APIXABAN 5 MG TAB PO SCH ×2 (08:10→20:20)
[2021-10-26] MEDS: ATORVASTATIN 40 MG TAB PO SCH (08:10)
[2021-10-26] MEDS: BUDESONIDE 1 MG/2 ML NEBU INHALATION SCH ×2 (08:28→19:06)
[2021-10-26] MEDS: IPRATROPIUM-ALBUTEROL 3 ML NEB INHALATION PRN ×2 (08:28→19:06)
--- NOTE | 2021-10-26 08:33 | CDI ---
Documentation Clarification Form Date: 10/26/2021 08:13:54 AM From: Jojo Huynh CCS, CCDS Admit Date: 10/20/2021 04:01:00 AM Patient Name: Veronique Dukes Visit Number: [id number] Discharge Date: ATTENTION: The Clinical Documentation Specialists (CDI) and [facility] Coding Staff appreciate your assistance in clarifying documentation. Please respond to the clarification below the line at the bottom and electronically sign. The CDI & [facility] Coding staff will review the response and follow-up if needed. Please note: Queries are made part of the Legal Health Record. If you have any questions, please contact the author of this message via ITS. Dr. Kaela Chang: The patient presented with vomiting and a UTI. BUN and Creatinine were within normal limits on the day of admission 09/14. BUN up to 52.0 on 09/22 with Creatinine up to 2.4 on 09/21 and 2.0 on 09/22. Additional clarification regarding the patient's abnormal lab values is requested. History/Risk Factors per the 10/20 H/P: Hypertension, Diabetes Mellitus, GERD, PE, Anemia, Schizoaffective disorder Bipolar type, History of Alcohol Abuse, History of Cognitive Disorder nos, Smoker: 1ppd. Clinical Indicators: Presented to the ED with Nausea & Vomiting for 2 days, complaining of some periumbilical pain with vomiting. The patient has a history neurogenic bladder and straight caths BID at home. Admit with Hypomagnesemia, Hypocalcemia, Hypokalemia, Fall, UTI, Dehydration. Patients baseline/prior BUN/CR/GFR: unknown. 09/14 BUN: 10, Creatinine: 0.76, GFR 88. 09/21 BUN: 51.8 Creatinine 2.4, GFR 25.6. 10/19 BUN: 32.6, Creatinine 0.9, GFR 81.5 Treatment 09/14: po Tylenol 1,000 mg x1/prn, IV Cefazolin 50 mls @ 100 mls/hr x1/prn, Heparin 5,000 units sq x1, IV Flagyl 100 mls @ 100 mls/hr x1, IV Fentanyl 50 mcg q3M/prn, IV dilaudid 0.5 mg q5M/prn, IV Zofran 4 mg q8H/prn, IV Decadron 4 mg x1IV Lactated Ringers 1,300 mls x5, IV Kcl/Dextrose 1,000 mls @ 125 mls/hr q8H, IV Na Chl 1,000 mls @ 999 mls/hr q1H, IV Albumin Human 250 mls @ 150 mls/hr q1H, IV Zosyn 100 mls @ 25 mls/hr q8H. 09/21: po Pepcid 20 mg BID. 09/23: IV Dilaudid 1 mg q2H/prn, IV Na Chl 1,000 mls @ 999 mls/hr q1H x2, IV Kcl 100 mls @ 50 mls/hr q2H, IV Norepinephrine Bitartrate 258 mls @ 8.045 mls/hr q24H 09/24: TPN Please clarify the following: [x ] Acute Renal Failure [ ] Other, please specify [ ] Unable to determine (Template Last Revised: April 2020) MTDD
[2021-10-26 09:33] VITALS: BMI 30.9
[2021-10-26] MEDS: MAGNESIUM SULFATE-D5W PMX 1 GM in DEXTROSE/WATER 1 100ML.BAG IVPB SCH ×2 (09:59→11:31)
[2021-10-26 12:17] LABS: Glucose,Whole Blood 112 mg/dL (70-110)
[2021-10-26] MEDS: CALCIUM CARBONATE 500 MG CHEWABLE PO PRN ×2 (14:06→20:52)
--- NOTE | 2021-10-26 14:23 | P.PN ---
Subjective Progress Note Date: 10/26/21 Patient is pending acceptance at subacute rehab facility. Discharge antibiotics adjusted to omnicef to complete course of antibiotic therapy for klebsiella UTI. Patient did receive IV magnesium today for mag level of 1.7, she will discharge on PO magnesium and repeat level outpatient. Discontinue indwelling catheter on discharge. Continue with urinary strait catheterization outpatient as usual. Repeat labs in AM. Heart rate 90s sinus rhythm, blood pressure 116/83. Review of Systems Constitutional: Denied any fatigue denied any fever. Cardio vascular: denied any chest pain, palpitations Gastrointestinal: denied any nausea, vomiting, diarrhea Pulmonary: Denied any shortness of breath cough Neurologic denied any new focal deficits All inpatient medications were reviewed and appropriate changes in these medications as dictated in the interval history and assessment and plan. PHYSICAL EXAMINATION: GENERAL: The patient is alert and oriented x3, not in any acute distress. Well developed, well nourished. HEENT: Pupils are round and equally reacting to light. EOMI. No scleral icterus. No conjunctival pallor. Normocephalic, atraumatic. No pharyngeal erythema. No thyromegaly. CARDIOVASCULAR: S1 and S2 present. No murmurs, rubs, or gallops. PULMONARY: Chest is clear to auscultation, no wheezing or crackles. ABDOMEN: Soft, nontender, nondistended, normoactive bowel sounds. No palpable or ganomegaly. MUSCULOSKELETAL: No joint swelling or deformity. EXTREMITIES: No cyanosis, clubbing, or pedal edema. NEUROLOGICAL: Gross neurological examination did not reveal any focal deficits. SKIN: No rashes. Assessment and Plan Assessment Acute klebsiella urinary tract infection, failed outpatient treatment. Most likely related to neurogenic bladder of catheterization. Sinus tachycardia, resolved Severe hypomagnesemia, POA, resolved Mild acute renal failure secondary to nausea vomiting and poor oral intake, improved. 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 Dr. Bernardo MD I have performed a history and physical examination and medical decision making of this patient, discussed the same with the dictator, and agree with the dictators assessment and plan as written, documented as a scribe. Based on total visit time, I have performed more than 50% of this visit. Objective - Vital Signs Vital signs: Vital Signs Temp 97.7 F 10/26/21 11:51 Pulse 97 10/26/21 11:51 Resp 18 10/26/21 11:51 BP 116/83 10/26/21 11:51 Pulse Ox 97 10/26/21 11:51 FiO2 Intake & Output 10/25/21 10/26/21 10/26/21 18:59 06:59 18:59 Intake Total 540 10 380 Output Total 950 3800 2150 Balance -410 -4600 -1770 Weight 74.389 kg Intake: IV 10 20 Invasive Line 3 10 20 Oral 540 360 Output: Urine 950 3800 1575 Uretheral (Taylor) 1075 Stool 575 Other: Voiding Method Indwelling Catheter Indwelling Catheter Indwelling Catheter # Bowel Movements 0 - Labs CBC & Chem 7: 10/22/21 07:53 10/25/21 07:11 Labs: Abnormal Lab Results - Last 24 Hours (Table) 10/25/21 10/25/21 10/26/21 Range/Units 16:24 20:00 07:14 POC Glucose (mg/dL) 227 H 219 H 138 H (70-110) mg/dL 10/26/21 Range/Units 12:15 POC Glucose (mg/dL) 112 H (70-110) mg/dL Microbiology - Last 24 Hours (Table) 10/20/21 08:00 Blood Culture - Final Blood No Growth after 144 hours 10/20/21 07:45 Blood Culture - Final Blood No Growth after 144 hours Assessment and Plan Time with Patient: Less than 30
[2021-10-26 16:54] LABS: Glucose,Whole Blood 152 mg/dL (70-110)
[2021-10-26 20:18] LABS: Glucose,Whole Blood 102 mg/dL (70-110)
[2021-10-26] MEDS: INSULIN DETEMIR (LEVEMIR) 100 UNIT/ML SYR SQ SCH (20:18)
[2021-10-26] MEDS: cloZAPine 100 MG TAB PO SCH (20:19)
[2021-10-27 06:53] LABS: Glucose,Whole Blood 203 mg/dL (70-110)
[2021-10-27 07:01] LABS: Basophils % (A) 0 %; Eosinophils % (A) 0 %; HCT 40.1 % (34.0-46.0); HGB 12.9 gm/dL (11.4-16.0); Lymphocytes % (A) 28 %; MCH 28.3 pg (25.0-35.0); MCHC 32.3 g/dL (31.0-37.0); MCV 87.6 fL (80.0-100.0); Mean Platelet Volume 8.7; Monocytes # (A) 0.3 k/uL (0-1.0); Monocytes % (A) 5 %; Neutrophils # (A) 4.6 k/uL (1.3-7.7); Neutrophils % (A) 65 %; Platelet Count 181 k/uL (150-450); RBC 4.57 m/uL (3.80-5.40); RDW 13.5 % (11.5-15.5); WBC 7.1 k/uL (3.8-10.6)
[2021-10-27 07:24] LABS: Calcium 9.2 mg/dL (8.4-10.2); Magnesium 1.6 mg/dL (1.6-2.3); Potassium 4.4 mmol/L (3.5-5.1)
[2021-10-27] MEDS: BUDESONIDE 1 MG/2 ML NEBU INHALATION SCH ×2 (07:32→19:19)
[2021-10-27] MEDS: APIXABAN 5 MG TAB PO SCH ×2 (08:14→21:11)
[2021-10-27] MEDS: metFORMIN 500 MG TAB PO SCH ×2 (08:15→17:34)
[2021-10-27] MEDS: METOPROLOL TARTRATE 25 MG TAB PO SCH ×2 (08:15→21:11)
[2021-10-27] MEDS: FAMOTIDINE 20 MG TAB PO SCH (08:15)
[2021-10-27] MEDS: ATORVASTATIN 40 MG TAB PO SCH (08:15)
[2021-10-27] MEDS: TAMSULOSIN 0.4 MG CAP.ER.24H PO SCH (08:15)
[2021-10-27] MEDS: INSULIN ASPART (NovoLOG) 100 UNIT/ML VIAL SQ SCH ×7 (08:15→21:12)
[2021-10-27 11:03] LABS: Glucose,Whole Blood 270 mg/dL (70-110)
[2021-10-27 16:29] LABS: Glucose,Whole Blood 85 mg/dL (70-110)
--- NOTE | 2021-10-27 19:11 | P.PN ---
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 This morning she did not vomit area she was complaining of from some periumbilical pain with vomiting. She says t hat she has a "ball movement and it looks alright to her. Has bowel movements was just when she came to emergency room. She denies chest pain or dyspnea. No headache or weakness or numbness. This morning she has been complaining from dysuria. Patient is a non-history of neurogenic bladder and she straight cath herself twice a day as she states. She smokes about 1 pack per day, last smoked 2 days ago, she was counseled to quit and she agrees but she declines nicotine patch. She denies alcohol or illicit drugs. Patient states that she has a psychiatrist Dr. Webb as an outpatient, last saw him about 2-4 weeks ago, she states she is doing well, she denies hallucination or delusions or suicidal or homicidal ideation however she thought she saw her , also she thought she saw her Away while she was next to her, this could be delusional thoughts Vital signs stable, patient is tachycardic on admission 101-112. Patient is afebrile. On admission she has leukocytosis of 12.7 K. INR is 1.3. D-dimer 0.6. Potassium 3.1, creatinine 1.1, glucose is more than 300 Calcium 7.1 at 6.2 which were low, magnesium level less than 0.4. Liver enzymes not elevated. Urine analysis is highly suspicious for infection and urine culture is pending. EKG showed sinus tachycardia at [address]-T changes. CTA of the chest: No evidence of pulmonary embolism, right thyroid gland nodule correlated with thyroid ultrasound CT of the head of the neck: Negative for acute fracture or dislocation. No acute intracranial lesion Chest x-ray: No acute process Emergency room patient received normal saline, lidocaine patch, calcium gluconate, Zofran, potassium replacement and ceftriaxone 10/21/2021. Patient is eating well with no more abdominal pain but she does not have bowel movement yet. She still has Taylor catheter and clear in urine in the bag. She still be treated for UTI with culture growing gram-negative bacilli. She is on ceftriaxone TSH is very low but free T4 is normal. Patient informed about her Midline and recommendation for follow-up as an outpatient. Magnesium level back to normal today. Patient asking of her Taylor catheter can be discontinued. We will check PVR 10/23/2011 Patient has good appetite and eating well she's awake, she does not have much abdominal pain but has no bowel movement yet. Still has Taylor catheter in place and it was discontinued Patient has all her psychiatric medication ordered, confirmed with bedside nurse. She does not have any psychiatric illness, no hallucination or up as the scope was passed, no depression or michelle. She does not feel she needs to see a psychiatrist. Patient however noticed to be little bit tachypneic she used to smoke 1 pack per day the last week. She is a little wheezing. We don't to start her on inhalers steroids and dounebs 10/26/21 Patient is pending acceptance at subacute rehab facility. Discharge antibiotics adjusted to omnicef to complete course of antibiotic therapy for klebsiella UTI. Patient did receive IV magnesium today for mag level of 1.7, she will discharge on PO magnesium and repeat level outpatient. Discontinue indwelling catheter on discharge. Continue with urinary strait catheterization outpatient as usual. Repeat labs in AM. Heart rate 90s sinus rhythm, blood pressure 116/83. 10/27/2021 Patient is awake and alert and calm and she is asking when she will be discharged. Patient denies any specific symptoms She has a Taylor catheter and she wants to be discontinued upon discharge, she was doing cautious intermittent self-catheterization twice a day and she is willing to continue doing that. She's been doing this self-catheterization for about a year now. She is fully awake and oriented to time place and person. She's had baseline mental status. She denies any other symptoms. Hemodynamically stable. Labs reviewed. Creatinine 1.05. Today I did peer to peer review, I discussed the case with physician: Her insurance company and he told me With her medical insurance provider and she got accepted for going to rehab. Case Is discussed with social media content manager Objective - Vital Signs Vital signs: Vital Signs Temp 98.3 F 10/27/21 08:00 Pulse 92 10/27/21 08:00 Resp 18 10/26/21 23:22 BP 103/70 10/27/21 08:00 Pulse Ox 91 L 10/27/21 08:00 FiO2 Intake & Output 10/26/21 10/27/21 10/27/21 18:59 06:59 18:59 Intake Total 950 Output Total 2725 1750 Balance -1775 -1750 Weight 74.389 kg 66.5 kg Intake: IV 20 Invasive Line 3 20 Oral 930 Output: Urine 2150 1750 Uretheral (Taylor) 1200 650 Stool 575 Other: Voiding Method Indwelling Catheter Indwelling Catheter # Bowel Movements 1 - Exam GENERAL: The patient is alert and oriented x3, not in any acute distress. Well developed, well nourished. HEENT: Pupils are round and equally reacting to light. EOMI. No scleral icterus. No conjunctival pallor. Normocephalic, atraumatic. No pharyngeal erythema. No thyromegaly. CARDIOVASCULAR: S1 and S2 present. No murmurs, rubs, or gallops. PULMONARY: Chest is clear to auscultation, no wheezing or crackles. ABDOMEN: Soft, nontender, nondistended, normoactive bowel sounds. No palpable organomegaly. MUSCULOSKELETAL: No joint swelling or deformity. EXTREMITIES: No cyanosis, clubbing, or pedal edema. NEUROLOGICAL: Gross neurological examination did not reveal any focal deficits. SKIN: No rashes. no petechiae. - Labs CBC & Chem 7: 10/27/21 06:17 10/27/21 06:17 Labs: Abnormal Lab Results - Last 24 Hours (Table) 10/26/21 10/26/21 10/27/21 Range/Units 12:15 16:53 06:17 Sodium 134 L (137-145) mmol/L BUN 29 H (7-17) mg/dL Creatinine 1.05 H (0.52-1.04) mg/dL Glucose 190 H (74-99) mg/dL POC Glucose (mg/dL) 112 H 152 H (70-110) mg/dL 10/27/21 10/27/21 Range/Units 06:52 11:02 Sodium (137-145) mmol/L BUN (7-17) mg/dL Creatinine (0.52-1.04) mg/dL Glucose (74-99) mg/dL POC Glucose (mg/dL) 203 H 270 H (70-110) mg/dL Microbiology - Last 24 Hours (Table) 10/20/21 08:00 Blood Culture - Final Blood No Growth after 144 hours 10/20/21 07:45 Blood Culture - Final Blood No Growth after 144 hours Assessment and Plan Assessment: Acute urinary tract infection, secondary to Klebsiella failed outpatient treatment. Most likely related to neurogenic bladder self catheterization Severe hypomagnesemia, POA. Resolved Schizoaffective disorder bipolar type mild COPD exacerbation in a smoker patient. 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 Patient is reminded and she verbalized understanding and acceptance. Risks including but not limited to cancer explained Continue on Flomax, urinary catheter to be discontinued prior to discharge Plan for discharge to subacute rehab patient is pending accepting facility at this time. Today I did peer to peer review and she got accepted primarily pending official approval I spoke with the legal guardian at [phone] with Nara martinez and discussed the plan with her and medical problems and she is in agreement with the management plan. Also she told me her doctor is aware about her thyroid gland I still recommend that she follow up with her PCP Dr. Stuart in 1 week after discharge regarding this and to check thyroid function tests and she agrees Labs and medication were reviewed.. Continue same treatment. Continue with symptomatic treatment. Resume home medication. Monitor lytes and vitals. DVT and GI prophylaxis. Further recommendations as per clinical course of the patient DVT prophylaxis:Eliquis GI Prophylaxis: Pepcid PT/OT: Pending placement. Other than that patient is medically stable for discharge
[2021-10-27 21:01] LABS: Glucose,Whole Blood 257 mg/dL (70-110)
[2021-10-27] MEDS: INSULIN DETEMIR (LEVEMIR) 100 UNIT/ML SYR SQ SCH (21:11)
[2021-10-27] MEDS: cloZAPine 100 MG TAB PO SCH (21:11)
[2021-10-28 07:31] LABS: Glucose,Whole Blood 167 mg/dL (70-110)
[2021-10-28] MEDS: FAMOTIDINE 20 MG TAB PO SCH (08:25)
[2021-10-28] MEDS: METOPROLOL TARTRATE 25 MG TAB PO SCH (08:25)
[2021-10-28] MEDS: TAMSULOSIN 0.4 MG CAP.ER.24H PO SCH (08:25)
[2021-10-28] MEDS: APIXABAN 5 MG TAB PO SCH (08:25)
[2021-10-28] MEDS: INSULIN ASPART (NovoLOG) 100 UNIT/ML VIAL SQ SCH ×4 (08:25→12:07)
[2021-10-28] MEDS: metFORMIN 500 MG TAB PO SCH (08:26)
[2021-10-28] MEDS: ATORVASTATIN 40 MG TAB PO SCH (08:26)
[2021-10-28] MEDS: IPRATROPIUM-ALBUTEROL 3 ML NEB INHALATION PRN (09:08)
[2021-10-28] MEDS: BUDESONIDE 1 MG/2 ML NEBU INHALATION SCH (09:08)
[2021-10-28 10:34] VITALS: BP 127/81; PULSE 85; RESP 15; TEMP 97.7
[2021-10-28 11:32] LABS: Glucose,Whole Blood 110 mg/dL (70-110)
--- NOTE | 2021-10-28 11:39 | P.DS ---
Providers Date of admission: 10/20/21 04:01 Attending physician: Jorge Guerrier Primary care physician: Gamal Stuart [facility] Course: Diagnoses: Acute urinary tract infection, secondary to Klebsiella failed outpatient treatment. Most likely related to neurogenic bladder self catheterization Severe hypomagnesemia, POA. Resolved Schizoaffective disorder bipolar type mild COPD exacerbation in a smoker patient. 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 Patient presents because of nausea and vomiting over 2 days, patient found to have acute urinary tract infection, secondary to Klebsiella in the urine culture which is sensitive to the antibiotic ceftriaxone she was receiving. Patient can finish her course of oral Cefdinir upon discharge. She is also has neurogenic bladder and self catheterize herself twice daily at home for about a year. Patient agrees to be discharged on Taylor catheter to rehab. Because of her generalized weakness and cognitive impairment related to her seizure affective disorder. Also been weak for her UTI, she is high-risk R following, therefore physical therapy recommended subacute rehab, patient approved to go to rehab Also patient on admission her sugar was on controlled, we discontinued her Levemir and a diabetes medication and kept her on metformin 500 mg twice daily and insulin sliding scale. Over the last 24 hours she needed (0 to 3) units with meals Today she is awake and oriented to time, place and person. She denies any specific complaints. No chest pain or abdominal pain. No dyspnea. No vomiting or diarrhea. Taylor catheter in place and no urinary complaints. No fever. Problems and management plan were discussed with the patient and her sister who is her legal guardian and they verbalized understanding and acceptance Patient was found stable and can be discharged home however he needs follow-up as an outpatient. Patient was instructed to follow up with PCP Dr. Stuart within one week and patient agrees Patient was instructed to follow up with felting machine operator in 2 weeks for her thyroid gland. Patient says that her PCP is aware about his thyroid gland nodule and monitor closely Physical exam Gen: patient is a AAOx3, no distress CVS: S1-S2, RRR, no murmur Lungs: B/L CTA, no wheezing Abdomen: soft, no distention, no tenderness, positive bowel sounds Extremity: no leg edema or induration Time spent more than 35 minutes Patient Condition at Discharge: Stable Plan - Discharge Summary Discharge Rx Participant: No New Discharge Prescriptions: New Metoprolol Tartrate [Lopressor] 25 mg PO BID tab Magnesium Oxide [Mag-Ox] 400 mg PO DAILY #15 tablet Cefdinir 300 mg PO Q12HR 5 Days #10 cap INSULIN ASPART (NovoLOG) [NovoLOG (formulary)] 0 unit SQ ACHS each metFORMIN HCL [Glucophage] 500 mg PO BID-W/MEALS tab Continue fluPHENAZine decanoate [Prolixin Decanoate] 50 mg IM Q14D cloZAPine [Clozaril] 200 mg PO HS Tamsulosin [Flomax] 0.4 mg PO DAILY Omeprazole 20 mg PO BID Apixaban [Eliquis] 5 mg PO BID Budesonide/Formoterol Fumarate [Symbicort 160-4.5 Mcg Inhaler] 2 puff INHALATION RT-BID Ipratropium/Albuterol Sulfate [Combivent Respimat Inhaler] 1 puff INHALATION RT-QID Atorvastatin [Lipitor] 40 mg PO DAILY Cholecalciferol [Vitamin D3 (25 Mcg = 1000 Iu)] 25 mcg PO DAILY fluvoxaMINE MALEATE [Luvox] 100 mg PO HS Ondansetron Odt [Zofran ODT] 8 mg PO Q8HR PRN PRN Reason: Nausea Discontinued Glimepiride [Amaryl] 4 mg PO AC-BID Nitrofurantoin Monohyd/M-Cryst [Macrobid] 100 mg PO BID Metoprolol Succinate (ER) [Toprol Xl] 25 mg PO DAILY metFORMIN HCL ER [Glucophage XR] 1,000 mg PO DAILY sitaGLIPtin [Januvia] 50 mg PO DAILY Discharge Medication List cloZAPine [Clozaril] 200 mg PO HS 01/21/16 [History] fluPHENAZine decanoate [Prolixin Decanoate] 50 mg IM Q14D 01/21/16 [History] Tamsulosin [Flomax] 0.4 mg PO DAILY 03/13/17 [History] Cholecalciferol [Vitamin D3 (25 Mcg = 1000 Iu)] 25 mcg PO DAILY 07/22/20 [History] Omeprazole 20 mg PO BID 07/22/20 [History] Apixaban [Eliquis] 5 mg PO BID 10/24/20 [History] Budesonide/Formoterol Fumarate [Symbicort 160-4.5 Mcg Inhaler] 2 puff INHALATION RT-BID 10/24/20 [History] Ipratropium/Albuterol Sulfate [Combivent Respimat Inhaler] 1 puff INHALATION RT- QID 10/24/20 [History] fluvoxaMINE MALEATE [Luvox] 100 mg PO HS 10/24/20 [History] Atorvastatin [Lipitor] 40 mg PO DAILY 10/19/21 [History] Ondansetron Odt [Zofran ODT] 8 mg PO Q8HR PRN 10/19/21 [History] INSULIN ASPART (NovoLOG) [NovoLOG (formulary)] 0 unit SQ ACHS each 10/25/21 [Rx] Magnesium Oxide [Mag-Ox] 400 mg PO DAILY #15 tablet 10/25/21 [Rx] Metoprolol Tartrate [Lopressor] 25 mg PO BID tab 10/25/21 [Rx] Cefdinir 300 mg PO Q12HR 5 Days #10 cap 10/26/21 [Rx] metFORMIN HCL [Glucophage] 500 mg PO BID-W/MEALS tab 10/28/21 [Rx] Follow up Appointment(s)/Referral(s): Fidencio Reyes MD [REFERRING] - 1 Week (thyroid nodule Spoke to Hailey at Dr Reyes's office / they will call patient with follow up appointment. I will fax demographic, labs and last note per Hailey's request. ) Gamal Stuart DO [Primary Care Provider] - 10/29/21 11:15 am Addis Crouch MD [STAFF PHYSICIAN] - 1 Week (Office was closed when i called patient has to call to set up appointment ) [facility] Visiting Nurse, [NON-STAFF] - Ambulatory/Diagnostic Orders: Basic Metabolic Panel [LAB.AMB] Time Frame: 2 Days, Location: None Selected Magnesium [LAB.AMB] Time Frame: 2 Days, Location: None Selected Patient Instructions/Handouts: Dehydration (DC), Urinary Tract Infection in Women (DC), Hypokalemia (DC), Hypocalcemia (DC), Hypomagnesemia (DC), Fall Prevention (DC) Activity/Diet/Wound Care/Special Instructions: Patient will discharge to subacute rehab prior to discharge home She does intermittent strait catheterize at home and indwelling catheter can be discontinued prior to discharge to rehab. Patient will discharge on levemir and novolog coverage as her A1C was found to be 8.0 Recommend to see endocrinology outpatient for thryroid nodule. repeat BMP and magnesium levels in 2 to 3 days outpatient Discharge/Stand Alone Forms: Who Do I Call?, Help In The Home Discharge Disposition: TRANSFER TO SNF/ECF
[2021-10-28] MEDS ORDERED: metFORMIN 500 MG TAB PO SCH (17:30)
== END 2021-10-28 13:57 | DRG 699 ==
LOC: EC 16:53 → 3SCARD 10-20 04:01 → EEVIPCON 10-20 04:01 → 3SCARD 10-20 13:41 → 4SSUR 10-26 23:15
PROVIDERS: ADMIT Hospitalist; ATTEND Hospitalist
DX: T83.518A Infection and inflammatory reaction due to other urinary catheter, initial encounter (principal); N17.9 Acute kidney failure, unspecified; N39.0 Urinary tract infection, site not specified; E83.51 Hypocalcemia; F25.0 Schizoaffective disorder, bipolar type; E11.65 Type 2 diabetes mellitus with hyperglycemia; B96.1 Klebsiella pneumoniae [K. pneumoniae] as the cause of diseases classified elsewhere; K76.0 Fatty (change of) liver, not elsewhere classified; J44.9 Chronic obstructive pulmonary disease, unspecified; N31.9 Neuromuscular dysfunction of bladder, unspecified; I10 Essential (primary) hypertension; F10.10 Alcohol abuse, uncomplicated; E04.1 Nontoxic single thyroid nodule; E87.6 Hypokalemia; F09 Unspecified mental disorder due to known physiological condition; S01.01XA Laceration without foreign body of scalp, initial encounter; E83.42 Hypomagnesemia; E86.0 Dehydration; I07.1 Rheumatic tricuspid insufficiency; K21.9 Gastro-esophageal reflux disease without esophagitis; M19.90 Unspecified osteoarthritis, unspecified site; Z68.31 Body mass index [BMI] 31.0-31.9, adult; E66.9 Obesity, unspecified; F17.210 Nicotine dependence, cigarettes, uncomplicated; Z71.6 Tobacco abuse counseling; R00.0 Tachycardia, unspecified; Z91.11 Patient's noncompliance with dietary regimen; Z79.01 Long term (current) use of anticoagulants; Z79.51 Long term (current) use of inhaled steroids; Z79.84 Long term (current) use of oral hypoglycemic drugs; Z79.899 Other long term (current) drug therapy; Z87.440 Personal history of urinary (tract) infections; Z96.82 Presence of neurostimulator; Z71.3 Dietary counseling and surveillance; Y84.6 Urinary catheterization as the cause of abnormal reaction of the patient, or of later complication, without mention of misadventure at the time of the procedure; W01.0XXA Fall on same level from slipping, tripping and stumbling without subsequent striking against object, initial encounter; Y92.019 Unspecified place in single-family (private) house as the place of occurrence of the external cause; Z88.8 Allergy status to other drugs, medicaments and biological substances
CPT/HCPCS: 36415; 51798; 70450; 71045; 71046; 71275; 72125; 74018; 80048; 80053; 81001; 82150; 83036; 83690; 83735; 84100; 84132; 84439; 84443; 84484; 85025; 85379; 85610; 85730; 87040; 87077; 87086; 87186; 93005; 94640; 96361; 96365; 96366; 96368; 96375; 99291

== ENCOUNTER 2022-03-19 09:46 | Inpatient (IN) | payer MEDICARE, OTHER ==
[2022-03-19 10:02] LABS: Glucose,Whole Blood 152 mg/dL (70-110)
[2022-03-19] MEDS ORDERED: SODIUM CHLORIDE 0.9% 1,000 ML IV ONE (10:22)
--- NOTE | 2022-03-19 10:25 | ED ---
General Adult HPI - General Chief complaint: Weakness Stated complaint: weakness Time Seen by Provider: 03/19/22 09:47 Source: patient, EMS, RN notes reviewed Mode of arrival: EMS Limitations: altered mental status - History of Present Illness Initial comments: Patient is a 56-year-old female presenting to the emergency department for concern for weakness. Patient was found by coworkers at her home on the floor and case was called. Please did bring the patient in. There is question of patient may be took too much of her medication here patient is not consistent with her history. Patient is on clonazepam. Patient states her cat May have ate it. Patient does not have specific complaints. Patient denies alcohol use or intentional drug overdose. Patient was found lying down covered with stool and urine. - Related Data Home Medications Medication Instructions Recorded Confirmed cloZAPine [Clozaril] 200 mg PO HS 01/21/16 10/19/21 fluPHENAZine decanoate [Prolixin 50 mg IM Q14D 01/21/16 10/19/21 Decanoate] Tamsulosin [Flomax] 0.4 mg PO DAILY 03/13/17 10/19/21 Cholecalciferol [Vitamin D3 (25 25 mcg PO DAILY 07/22/20 10/19/21 Mcg = 1000 Iu)] Omeprazole 20 mg PO BID 07/22/20 10/19/21 Apixaban [Eliquis] 5 mg PO BID 10/24/20 10/19/21 Budesonide/Formoterol Fumarate 2 puff INHALATION RT-BID 10/24/20 10/19/21 [Symbicort 160-4.5 Mcg Inhaler] Ipratropium/Albuterol Sulfate 1 puff INHALATION RT-QID 10/24/20 10/19/21 [Combivent Respimat Inhaler] fluvoxaMINE MALEATE [Luvox] 100 mg PO HS 10/24/20 10/19/21 Atorvastatin [Lipitor] 40 mg PO DAILY 10/19/21 10/19/21 Ondansetron Odt [Zofran ODT] 8 mg PO Q8HR PRN 10/19/21 10/19/21 Previous Rx's Medication Instructions Recorded INSULIN ASPART (NovoLOG) [NovoLOG 0 unit SQ ACHS each 10/25/21 (formulary)] Magnesium Oxide [Mag-Ox] 400 mg PO DAILY #15 tablet 10/25/21 Metoprolol Tartrate [Lopressor] 25 mg PO BID tab 10/25/21 Cefdinir 300 mg PO Q12HR 5 Days #10 cap 10/26/21 metFORMIN HCL [Glucophage] 500 mg PO BID-W/MEALS tab 10/28/21 Allergies Allergy/AdvReac Type Severity Reaction Status Date / Time haloperidol [From Haldol] AdvReac Muscles Verified 03/19/22 10:17 freeze up in arms and hands haloperidol lactate AdvReac Muscles Verified 03/19/22 10:17 [From Haldol] freeze up in arms and hands Review of Systems ROS Statement: Those systems with pertinent positive or pertinent negative responses have been documented in the HPI. ROS Other: All systems not noted in ROS Statement are negative. Constitutional: Denies: fever Eyes: Denies: eye pain ENT: Denies: ear pain Respiratory: Denies: cough Cardiovascular: Denies: chest pain Endocrine: Denies: fatigue Gastrointestinal: Denies: abdominal pain Genitourinary: Denies: urgency Past Medical History Past Medical History: Diabetes Mellitus, GERD/Reflux, Osteoarthritis (OA), Pulmonary Embolus (PE) Additional Past Medical History / Comment(s): Hx of colon polyps, states borderline diabetic, neuorgenic bladder, anemia, self caths at home, thyroid nodule History of Any Multi-Drug Resistant Organisms: None Reported Past Surgical History: Back Surgery, Breast Surgery, Ear Surgery Additional Past Surgical History / Comment(s): hunter breast reduction, breast biopsy, bladder stimulator implant, skin grafts to ear Past Anesthesia/Blood Transfusion Reactions: No Reported Reaction Past Psychological History: Bipolar, Depression, Schizoaffective Disorder Smoking Status: Former smoker Past Alcohol Use History: None Reported Past Drug Use History: None Reported - Past Family History Father Family Medical History: Cancer Additional Family Medical History / Comment(s): lung Sister(s) Family Medical History: Cancer Additional Family Medical History / Comment(s): ovarian General Exam Limitations: no limitations General appearance: alert, in no apparent distress Head exam: Present: atraumatic, normocephalic Eye exam: Present: normal appearance, PERRL, EOMI, nystagmus ENT exam: Present: normal oropharynx Neck exam: Present: normal inspection. Absent: tenderness Respiratory exam: Present: normal lung sounds bilaterally Cardiovascular Exam: Present: regular rate, normal rhythm GI/Abdominal exam: Present: soft. Absent: tenderness Neurological exam: Present: alert, oriented X3, CN II-XII intact. Absent: motor sensory deficit Psychiatric exam: Present: agitated (Patient is slightly agitated with questioning) Skin exam: Present: normal color Course Vital Signs 03/19/22 03/19/22 09:50 11:56 Temperature 98.4 F Pulse Rate 101 H 89 Respiratory 22 16 Rate Blood Pressure 109/85 104/77 O2 Sat by Pulse 96 97 Oximetry EKG Findings - EKG Results: EKG: interpreted by ERMD (Nonspecific ST-T), sinus rhythm, normal axis, normal QRS EKG shows: tachycardia Medical Decision Making - Medical Decision Making Was pt. sent in by a medical professional or institution (, PA, RADIO ADJUSTER, urgent care, hospital, or usp...) When possible be specific @ -No Did you speak to anyone other than the patient for history (EMS, parent, family, police, friend...)? What history was obtained from this source @ -EMS provided near entire history is patient is a poor historian. Did you review nursing and triage notes (agree or disagree)? Why? @ -I reviewed and agree with nursing and triage notes Were old charts reviewed (outside hosp., previous admission, EMS record, old EKG, old radiological studies, urgent care reports/EKG's, usp records)? Report findings @ -Reviewed patient's previous admissions Differential Diagnosis (chest pain, altered mental status, abdominal pain women, abdominal pain men, vaginal bleeding, weakness, fever, dyspnea, syncope, headache, dizziness, GI bleed, back pain, seizure, CVA, palpatations, mental health)? @ -Differential Altered Mental Status: Hypoglycemia, DKA, hypercapnia, ETOH, overdose, CO poisoning, trauma, myxedema coma, HTN encephalopathy, infection, encephalitis, psychosis, intercranial hemorrhage, hepatic encephalopathy, meningitis, CVA, this is not meant to be an all-inclusive list EKG interpreted by me (3pts min.). @ -As above X-rays interpreted by me (1pt min.). @ -Chest x-ray shows no acute process CT interpreted by me (1pt min.). @ -CT brain report reviewed U/S interpreted by me (1pt. min.). @ -None done What testing was considered but not performed or refused? (CT, X-rays, U/S, labs)? Why? @ -None What meds were considered but not given or refused? Why? @ -None Did you discuss the management of the patient with other professionals (professionals i.e. , PA, RADIO ADJUSTER, lab, RT, psych nurse, oncology social work, spiral tube winder, teacher, reserve officer, briefcase sewer)? Give summary @ -Case discussed with Dr. Saab, who will admit for Dr. Stuart. Was smoking cessation discussed for >3mins.? @ -No Was critical care preformed (if so, how long)? @ -No Were there social determinants of health that impacted care today? How? (Homelessness, low income, unemployed, alcoholism, drug addiction, transportation, low edu. Level, literacy, decrease access to med. care, [facility], rehab)? @ -No Was there de-escalation of care discussed even if they declined (Discuss DNR or withdrawal of care, Hospice)? DNR status @ -No What co-morbidities impacted this encounter? (DM, HTN, Smoking, COPD, CAD, Cancer, CVA, ARF, Chemo, Hep., AIDS, mental health diagnosis, sleep apnea, morbid obesity)? @ -None Was patient admitted / discharged? Hospital course, mention meds given and route, prescriptions, significant lab abnormalities, going to OR and other perti nent info. @ -Patient reevaluated without improvement of symptoms. Patient is in a deep sleep but arousable to light touch. Patient will be admitted and neurology will be consulted. Undiagnosed new problem with uncertain prognosis? @ -Undiagnosed new problem with uncertain prognosis Drug Therapy requiring intensive monitoring for toxicity (Heparin, Nitro, Insulin, Cardizem)? @ -No Were any procedures done? @ -No Diagnosis/symptom? @ -Altered mental status Acute, or Chronic, or Acute on Chronic? @ -Acute Uncomplicated (without systemic symptoms) or Complicated (systemic symptoms)? @ -Uncomplicated Side effects of treatment? @ -No Exacerbation, Progression, or Severe Exacerbation? @ -No Poses a threat to life or bodily function? How? (Chest pain, [place], [place], pneumonia, PE, COPD, DKA, ARF, appy, cholecystitis, CVA, Diverticulitis, Homicidal, Suicida l, threat to staff... and all critical care pts) @ -Potential threat to life secondary to unknown change in mental status - Lab Data Result diagrams: 03/19/22 10:24 03/19/22 10:24 Lab Results 03/19/22 03/19/22 03/19/22 Range/Units 10:01 10:24 10:24 WBC 6.0 (3.8-10.6) k/uL RBC 4.50 (3.80-5.40) m/uL Hgb 13.0 (11.4-16.0) gm/dL Hct 37.1 (34.0-46.0) % MCV 82.6 (80.0-100.0) fL MCH 28.9 (25.0-35.0) pg MCHC 35.0 (31.0-37.0) g/dL RDW 14.0 (11.5-15.5) % Plt Count 130 L (150-450) k/uL MPV 9.4 Neutrophils % 68 % Lymphocytes % 25 % Monocytes % 5 % Eosinophils % 0 % Basophils % 0 % Neutrophils # 4.1 (1.3-7.7) k/uL Lymphocytes # 1.5 (1.0-4.8) k/uL Monocytes # 0.3 (0-1.0) k/uL Eosinophils # 0.0 (0-0.7) k/uL Basophils # 0.0 (0-0.2) k/uL PT 11.7 (9.0-12.0) sec INR 1.1 (<1.2) APTT 28.7 (22.0-30.0) sec Sodium (137-145) mmol/L Potassium (3.5-5.1) mmol/L Chloride (98-107) mmol/L Carbon Dioxide (22-30) mmol/L Anion Gap mmol/L BUN (7-17) mg/dL Creatinine (0.52-1.04) mg/dL Est GFR (CKD-EPI)AfAm (>60 ml/min/1.73 sqM) Est GFR (CKD-EPI)NonAf (>60 ml/min/1.73 sqM) Glucose (74-99) mg/dL POC Glucose (mg/dL) 152 H (70-110) mg/dL POC Glu Architectural Examiner ID Shari Melchor Calcium (8.4-10.2) mg/dL Total Bilirubin (0.2-1.3) mg/dL AST (14-36) U/L ALT (4-34) U/L Alkaline Phosphatase (38-126) U/L Creatine Kinase (30-135) U/L Troponin I (0.000-0.034) ng/mL Total Protein (6.3-8.2) g/dL Albumin (3.5-5.0) g/dL Urine Color Urine Appearance (Clear) Urine pH (5.0-8.0) Ur Specific [place] (1.001-1.035) Urine Protein (Negative) Urine Glucose (UA) (Negative) Urine Ketones (Negative) Urine Blood (Negative) Urine Nitrite (Negative) Urine Bilirubin (Negative) Urine Urobilinogen (<2.0) mg/dL Ur Leukocyte Esterase (Negative) Urine WBC (0-5) /hpf Urine WBC Clumps (None) /hpf Ur Squamous Epith Cells (0-4) /hpf Amorphous Sediment (None) /hpf Urine Bacteria (None) /hpf Salicylates mg/dL Urine Opiates Screen (NotDetected) Ur Oxycodone Screen (NotDetected) Urine Methadone Screen (NotDetected) Ur Propoxyphene Screen (NotDetected) Acetaminophen ug/mL Ur Barbiturates Screen (NotDetected) U Tricyclic Antidepress (NotDetected) Ur Phencyclidine Scrn (NotDetected) Ur Amphetamines Screen (NotDetected) U Methamphetamines Scrn (NotDetected) U Benzodiazepines Scrn (NotDetected) Urine Cocaine Screen (NotDetected) U Marijuana (THC) Screen (NotDetected) Serum Alcohol mg/dL 03/19/22 03/19/22 03/19/22 Range/Units 10:24 10:24 10:24 WBC (3.8-10.6) k/uL RBC (3.80-5.40) m/uL Hgb (11.4-16.0) gm/dL Hct (34.0-46.0) % MCV (80.0-100.0) fL MCH (25.0-35.0) pg MCHC (31.0-37.0) g/dL RDW (11.5-15.5) % Plt Count (150-450) k/uL MPV Neutrophils % % Lymphocytes % % Monocytes % % Eosinophils % % Basophils % % Neutrophils # (1.3-7.7) k/uL Lymphocytes # (1.0-4.8) k/uL Monocytes # (0-1.0) k/uL Eosinophils # (0-0.7) k/uL Basophils # (0-0.2) k/uL PT (9.0-12.0) sec INR (<1.2) APTT (22.0-30.0) sec Sodium 127 L (137-145) mmol/L Potassium 3.6 (3.5-5.1) mmol/L Chloride 95 L (98-107) mmol/L Carbon Dioxide 21 L (22-30) mmol/L Anion Gap 11 mmol/L BUN 16 (7-17) mg/dL Creatinine 0.85 (0.52-1.04) mg/dL Est GFR (CKD-EPI)AfAm 88 (>60 ml/min/1.73 sqM) Est GFR (CKD-EPI)NonAf 76 (>60 ml/min/1.73 sqM) Glucose 145 H (74-99) mg/dL POC Glucose (mg/dL) (70-110) mg/dL POC Glu Architectural Examiner ID Calcium 7.7 L (8.4-10.2) mg/dL Total Bilirubin 0.8 (0.2-1.3) mg/dL AST 24 (14-36) U/L ALT 21 (4-34) U/L Alkaline Phosphatase 61 (38-126) U/L Creatine Kinase 186 H (30-135) U/L Troponin I <0.012 (0.000-0.034) ng/mL Total Protein 5.7 L (6.3-8.2) g/dL Albumin 3.5 (3.5-5.0) g/dL Urine Color Colorless Urine Appearance Cloudy H (Clear) Urine pH 5.5 (5.0-8.0) Ur Specific [place] 1.003 (1.001-1.035) Urine Protein Negative (Negative) Urine Glucose (UA) Negative (Negative) Urine Ketones Negative (Negative) Urine Blood Negative (Negative) Urine Nitrite Positive H (Negative) Urine Bilirubin Negative (Negative) Urine Urobilinogen <2.0 (<2.0) mg/dL Ur Leukocyte Esterase Large H (Negative) Urine WBC 22 H (0-5) /hpf Urine WBC Clumps Moderate H (None) /hpf Ur Squamous Epith Cells <1 (0-4) /hpf Amorphous Sediment Occasional H (None) /hpf Urine Bacteria Moderate H (None) /hpf Salicylates <1.0 mg/dL Urine Opiates Screen Not Detected (NotDetected) Ur Oxycodone Screen Not Detected (NotDetected) Urine Methadone Screen Not Detected (NotDetected) Ur Propoxyphene Screen Not Detected (NotDetected) Acetaminophen <10.0 ug/mL Ur Barbiturates Screen Not Detected (NotDetected) U Tricyclic Antidepress Not Detected (NotDetected) Ur Phencyclidine Scrn Not Detected (NotDetected) Ur Amphetamines Screen Not Detected (NotDetected) U Methamphetamines Scrn Not Detected (NotDetected) U Benzodiazepines Scrn Not Detected (NotDetected) Urine Cocaine Screen Not Detected (NotDetected) U Marijuana (THC) Screen Not Detected (NotDetected) Serum Alcohol <10 mg/dL Disposition Clinical Impression: Altered mental status Disposition: ADMITTED IP TO THIS HOSP Is patient prescribed a controlled substance at d/c from ED?: No Referrals: Gamal Stuart DO [Primary Care Provider] - 1-2 days Time of Disposition: 12:18
[2022-03-19 10:54] LABS: INR 1.1 (<1.2); Partial Thromboplastin Time 28.7 sec (22.0-30.0); Prothrombin Time 11.7 sec (9.0-12.0)
[2022-03-19 10:59] LABS: ALT 21 U/L (4-34); AST 24 U/L (14-36); Acetaminophen <10.0 ug/mL; African American GFR (CKD) 88 (>60 ml/min/1.73 sqM); Albumin 3.5 g/dL (3.5-5.0); Alcohol <10 mg/dL; Alkaline Phosphatase 61 U/L (38-126); Anion Gap 11 mmol/L; Blood Urea Nitrogen 16 mg/dL (7-17); Calcium 7.7 mg/dL (8.4-10.2); Carbon Dioxide 21 mmol/L (22-30); Chloride 95 mmol/L (98-107); Creatine Kinase 186 U/L (30-135); Glucose 145 mg/dL (74-99); Non-African American GFR(CKD) 76 (>60 ml/min/1.73 sqM); Potassium 3.6 mmol/L (3.5-5.1); Salicylate <1.0 mg/dL; Sodium 127 mmol/L (137-145); Total Bilirubin 0.8 mg/dL (0.2-1.3); Total Protein 5.7 g/dL (6.3-8.2)
--- NOTE | 2022-03-19 11:02 | CT ---
EXAMINATION TYPE: CT brain wo con DATE OF EXAM: 03/19/2022 COMPARISON: 10/19/2021 HISTORY: ams CT DLP: 1099.4 mGycm Automated exposure control for dose reduction was used. FINDINGS: The ventricles, basal cisterns and sulci over convexities are within normal limits and there is no ma ss effect or shift of midline structures. There are 2 subtle areas of decreased density in the periventricular white matter 1 right frontal lob e and one in the left parietal lobe. There were not clearly identified on the prior study and are age and age indeterminate but likely chronic particularly the one in left parietal. There is no acute intra or extra-axial hemorrhage. There is no mass effect or shift of midline struct ures. Posterior fossa is grossly normal. The intraorbital contents appear normal and symmetric. There is mild fluid in the left mastoid air cells.. IMPRESSION: 1. No acute bleed or mass effect. 2. Small white matter abnormalities as described above. 3. Mild fluid within the left mastoid air cells.
[2022-03-19 11:05] LABS: Basophils % (A) 0 %; Eosinophils % (A) 0 %; HCT 37.1 % (34.0-46.0); Lymphocytes # (A) 1.5 k/uL (1.0-4.8); Lymphocytes % (A) 25 %; MCH 28.9 pg (25.0-35.0); MCV 82.6 fL (80.0-100.0); Mean Platelet Volume 9.4; Monocytes # (A) 0.3 k/uL (0-1.0); Monocytes % (A) 5 %; Neutrophils # (A) 4.1 k/uL (1.3-7.7); Neutrophils % (A) 68 %; Platelet Count 130 k/uL (150-450)
--- NOTE | 2022-03-19 11:11 | XR ---
EXAMINATION TYPE: XR chest 2V DATE OF EXAM: 03/19/2022 COMPARISON: 10/23/2021 HISTORY: Altered mental status TECHNIQUE: Frontal and lateral views of the chest are obtained. FINDINGS: There is no focal air space opacity, pleural effusion, or pneumothorax seen. The cardiac silhouette size is within normal limits. The osseous structures are intact. IMPRESSION: No acute cardiopulmonary process.
[2022-03-19 11:21] LABS: Amorphous Sediment,Urine Occasional /hpf; Appearance,Urine Cloudy (Clear); Bacteria,Urine Moderate /hpf; Bilirubin,Urine Negative (Negative); Blood,Urine Negative (Negative); Color,Urine Colorless; Glucose,Urine (UA) Negative (Negative); Ketones,Urine Negative (Negative); Leukocyte Esterase,Urine Large (Negative); Nitrite,Urine Positive (Negative); PH, Urine 5.5 (5.0-8.0); Protein,Urine Negative (Negative); Specific Gravity,Urine 1.003 (1.001-1.035); Squamous Epithelial Cell,Urine <1 /hpf (0-4); Urobilinogen,Urine <2.0 mg/dL (<2.0); WBC,Urine 22 /hpf (0-5)
[2022-03-19 11:26] LABS: Amphetamine Screen,Urine Not Detected (NotDetected); Barbiturate Screen,Urine Not Detected (NotDetected); Benzodiazepines Screen,Urine Not Detected (NotDetected); Cocaine Screen,Urine Not Detected (NotDetected); Methadone Screen, Urine Not Detected (NotDetected); Opiate Screen,Urine Not Detected (NotDetected); Oxycodone Screen, Urine Not Detected (NotDetected); Phencyclidine Screen,Urine Not Detected (NotDetected); Tricyclic Antidepressant,Urine Not Detected (NotDetected); Urn Cannabinoid Scrn Not Detected (NotDetected)
[2022-03-19] MEDS ORDERED: NALOXONE 0.4 MG/ML 1 ML VIAL IV PRN (12:18)
[2022-03-19] MEDS: SODIUM CHLORIDE 0.9% 1,000 ML IV SCH ×2 (12:26→21:27)
[2022-03-19] MEDS ORDERED: DEXTROSE 50% SYRINGE 50 ML IVP PRN ×2 (14:10)
[2022-03-19] MEDS: IPRATROPIUM-ALBUTEROL 3 ML NEB INHALATION PRN ×2 (15:24→19:52)
[2022-03-19] MEDS ORDERED: ONDANSETRON 4 MG TAB PO PRN (17:23)
[2022-03-19 17:46] LABS: Glucose,Whole Blood 306 mg/dL (70-110)
--- NOTE | 2022-03-19 17:54 | P.HPIM ---
History of Present Illness H&P Date: 03/19/22 Chief Complaint: Altered mental status Patient is a 56-year-old female with a known history of schizoaffective disorder, bipolar and depression, hypertension, history of PE and prior history of urinary tract infection and currently some day smoker was brought to the hospital by ambulance due to concern for generalized weakness. Patient was found by her neighbor at home on the floor and ambulance was called. Patient is awake alert but not a good historian. Patient is on multiple psychiatric medications. Denies any complaints of chest pain or shortness of breath. Eric hayes was afebrile on admission. Tachycardia with heart rate 101 on admission. No complaints of nausea vomiting or abdominal pain. Denies any complaints of diarrhea. EKG showed sinus tachycardia with low voltage criteria in the precordial leads. CT head showed no acute bleed or mass-effect. Small white matter abnormalities. Mild fluid within the left mastoid air cells. Chest x-ray showed no acute cardiopulmonary process. Laboratory data showed WBC 6.0 hemoglobin 13.0 and platelets 130 sodium 127 potassium 3.6 and chloride 95 bicarb is 21 BUN 16 and creatinine 0.85 and blood sugar is 145 blood calcium 7.7 mg are not elevated. CK1 86 and troponin x2 negative Urinalysis showed cloudy with positive nitrite and large leukocyte esterase with WBC clumps and less than 1 squamous epithelial cells. UDS is negative. Review of Systems Complete review of systems could not be obtained, patient except as per HPI. ROS unobtainable: due to mental status Past Medical History Past Medical History: COPD, Diabetes Mellitus, GERD/Reflux, Hypertension, Osteoarthritis (OA), Pulmonary Embolus (PE), Seizure Disorder Additional Past Medical History / Comment(s): Hx of colon polyps, neuorgenic bladder, anemia, self caths at home, thyroid nodule, UTI with hospital admission september 2021- klebsiella treated with ceftin History of Any Multi-Drug Resistant Organisms: None Reported Past Surgical History: Back Surgery, Breast Surgery, Ear Surgery Additional Past Surgical History / Comment(s): hunter breast reduction, breast biopsy, bladder stimulator implant, skin grafts to ear Past Anesthesia/Blood Transfusion Reactions: No Reported Reaction Past Psychological History: Bipolar, Depression, Schizoaffective Disorder Smoking Status: Current some day smoker Past Alcohol Use History: None Reported Additional Past Alcohol Use History / Comment(s): smokes approx half a pack a day, on and off from age 16 Past Drug Use History: None Reported - Past Family History Father Family Medical History: Cancer Additional Family Medical History / Comment(s): lung Sister(s) Family Medical History: Cancer Additional Family Medical History / Comment(s): ovarian Medications and Allergies Home Medications Medication Instructions Recorded Confirmed Type cloZAPine [Clozaril] 200 mg PO HS 01/21/16 03/19/22 History fluPHENAZine decanoate [Prolixin 50 mg IM Q14D 01/21/16 03/19/22 History Decanoate] Tamsulosin [Flomax] 0.4 mg PO DAILY 03/13/17 03/19/22 History Cholecalciferol [Vitamin D3 (25 25 mcg PO DAILY 07/22/20 03/19/22 History Mcg = 1000 Iu)] Omeprazole 20 mg PO HS 07/22/20 03/19/22 History Apixaban [Eliquis] 5 mg PO BID 10/24/20 03/19/22 History Budesonide/Formoterol Fumarate 2 puff INHALATION RT-BID 10/24/20 03/19/22 History [Symbicort 160-4.5 Mcg Inhaler] Ipratropium/Albuterol Sulfate 1 puff INHALATION RT-QID 10/24/20 03/19/22 History [Combivent Respimat Inhaler] fluvoxaMINE MALEATE [Luvox] 100 mg PO HS 10/24/20 03/19/22 History Atorvastatin [Lipitor] 40 mg PO DAILY 10/19/21 03/19/22 History Glimepiride [Amaryl] 4 mg PO BID 03/19/22 03/19/22 History LORazepam [Ativan] 0.5 mg PO HS 03/19/22 03/19/22 History Nicotine 21Mg/24Hr Patch [Habitrol] 1 patch TRANSDERM DAILY 03/19/22 03/19/22 History metFORMIN HCL ER [Glucophage XR] 500 mg PO BID 03/19/22 03/19/22 History ondansetron HCL [Zofran] 8 mg PO TID PRN 03/19/22 03/19/22 History sitaGLIPtin [Januvia] 100 mg PO DAILY 03/19/22 03/19/22 History Allergies Allergy/AdvReac Type Severity Reaction Status Date / Time haloperidol [From Haldol] AdvReac Muscles Verified 03/19/22 13:09 freeze up in arms and hands haloperidol lactate AdvReac Muscles Verified 03/19/22 13:09 [From Haldol] freeze up in arms and hands Physical Exam Vitals: Vital Signs Temp Pulse Pulse Resp BP BP Pulse Ox 03/19/22 13:12 98.3 F 97 18 115/81 95 03/19/22 13:02 78 18 105/68 98 03/19/22 11:56 89 16 104/77 97 03/19/22 09:50 98.4 F 101 H 22 109/85 96 Intake and Output 03/18/22 03/19/22 03/19/22 22:59 06:59 14:59 Other: Weight 71 kg PHYSICAL EXAMINATION: Patient is lying in the bed comfortably, no acute distress, awake alert and oriented. Patient is a poor historian.. HEENT: Normocephalic. Neck is supple. Pupils reactive. Nostrils clear. Oral cavity is moist. Neck reveals no JVD, carotid bruits, or thyromegaly. CHEST EXAMINATION: Trachea is central. Symmetrical expansion. Lung calderon clear to auscultation and percussion. Bibasilar diminished sounds. No wheezing or rhonchi. CARDIAC: Normal S1, S2 with no gallops. No murmurs ABDOMEN: Soft. Bowel sounds normal. No organomegaly. No abdominal bruits. Extremities: reveal no edema. No clubbing or cyanosis Neurologically awake, alert, oriented x to with well-coordinated movements. No gross focal deficits noted Skin: No rash or skin lesions. Psychiatric: Cooperative. Could not be assessed completely. Musculoskeletal: No joint swelling or deformity. Normal range of motion. Results CBC & Chem 7: 03/19/22 10:24 03/19/22 10:24 Labs: Abnormal Lab Results - Last 24 Hours (Table) 03/19/22 03/19/22 03/19/22 Range/Units 10:01 10:24 10:24 Plt Count 130 L (150-450) k/uL Sodium (137-145) mmol/L Chloride (98-107) mmol/L Carbon Dioxide (22-30) mmol/L Glucose (74-99) mg/dL POC Glucose (mg/dL) 152 H (70-110) mg/dL Calcium (8.4-10.2) mg/dL Creatine Kinase (30-135) U/L Total Protein (6.3-8.2) g/dL Urine Appearance Cloudy H (Clear) Urine Nitrite Positive H (Negative) Ur Leukocyte Esterase Large H (Negative) Urine WBC 22 H (0-5) /hpf Urine WBC Clumps Moderate H (None) /hpf Amorphous Sediment Occasional H (None) /hpf Urine Bacteria Moderate H (None) /hpf 03/19/22 Range/Units 10:24 Plt Count (150-450) k/uL Sodium 127 L (137-145) mmol/L Chloride 95 L (98-107) mmol/L Carbon Dioxide 21 L (22-30) mmol/L Glucose 145 H (74-99) mg/dL POC Glucose (mg/dL) (70-110) mg/dL Calcium 7.7 L (8.4-10.2) mg/dL Creatine Kinase 186 H (30-135) U/L Total Protein 5.7 L (6.3-8.2) g/dL Urine Appearance (Clear) Urine Nitrite (Negative) Ur Leukocyte Esterase (Negative) Urine WBC (0-5) /hpf Urine WBC Clumps (None) /hpf Amorphous Sediment (None) /hpf Urine Bacteria (None) /hpf Thrombosis Risk Factor Assmnt - DVT/VTE Prophylaxis DVT/VTE Prophylaxis: Pharmacologic Prophylaxis ordered - Choose All That Apply Each Factor Represents 1 point: Abnormal pulmonary function (COPD), Age 41-60 years, Obesity (BMI >25) Thrombosis Risk Factor Assessment Total Risk Factor Score: 3 Thrombosis Risk Factor Assessment Level: Moderate Risk Assessment and Plan Assessment: Altered mental status possible metabolic encephalopathy Generalized weakness and patient was found on the floor. Hypovolemic hyponatremia Acute urinary tract infection Schizoaffective disorder/bipolar/depression Currently some day smoker Hypertension Diabetes type 2 [id number] History of PE in September 2021 currently on Eliquis History of seizure resolved GERD COPD DVT prophylaxis patient is already on Eliquis Plan: Patient will be continued on IV hydration with normal saline and monitor sodium level closely. Continue with ceftriaxone. Follow-up urine culture report. Continue with psychiatric medications including Clozaril, Luvox and Ativan at bedtime. Neurology and psychiatry was consulted. Continue to follow closely. Discussed with the nursing staff and legal guardian was also updated. Prognosis is guarded. Time with Patient: Greater than 30
[2022-03-19] MEDS: INSULIN ASPART (NovoLOG) 100 UNIT/ML VIAL SQ SCH ×2 (18:21→21:22)
[2022-03-19] MEDS: GLIMEPIRIDE 4 MG TAB PO SCH (18:47)
[2022-03-19] MEDS: SYMBICORT 160-4.5 MCG INHALER INHALATION SCH (19:51)
[2022-03-19 21:00] LABS: Glucose,Whole Blood 267 mg/dL (70-110)
[2022-03-19] MEDS: APIXABAN 5 MG TAB PO SCH (21:22)
[2022-03-19] MEDS: cloZAPine 100 MG TAB PO SCH (21:22)
[2022-03-19] MEDS: LORazepam 0.5 MG TAB PO SCH (21:22)
[2022-03-19] MEDS: PANTOPRAZOLE 40 MG TABLET PO SCH (21:22)
[2022-03-20] MEDS: IPRATROPIUM-ALBUTEROL 3 ML NEB INHALATION PRN ×3 (07:43→15:18)
[2022-03-20] MEDS: SYMBICORT 160-4.5 MCG INHALER INHALATION SCH ×2 (07:43→19:19)
[2022-03-20 08:11] LABS: Glucose,Whole Blood 171 mg/dL (70-110)
[2022-03-20 09:12] LABS: Basophils # (A) 0.01 X 10*3/uL (0.00-0.10); Basophils % (A) 0.1 %; Eosinophils # (A) 0 X 10*3/uL (0.04-0.35); Eosinophils % (A) 0 %; HCT 37.4 % (37.2-46.3); HGB 12.3 g/dL (12.0-15.0); Immature Grans, Automated 0.6 %; Lymphocytes # (A) 1.68 X 10*3/uL (0.90-5.00); Lymphocytes % (A) 23.3 %; MCH 27.8 pg (27.0-32.0); MCHC 32.9 g/dL (32.0-37.0); MCV 84.4 fL (80.0-97.0); Mean Platelet Volume 11.8 fL (9.5-12.2); Monocytes % (A) 5.5 %; NRBC Per 100 WBC 0 /100 WBCS (0.0-0.0); Neutrophils # (A) 5.08 X 10*3/uL (1.80-7.70); Neutrophils % (A) 70.5 %; Platelet Count 152 X 10*3/uL (140-440); RBC 4.43 X 10*6/uL (4.10-5.20); RDW 13.9 % (11.5-14.5); WBC 7.21 X 10*3/uL (4.50-10.00)
[2022-03-20] MEDS: INSULIN ASPART (NovoLOG) 100 UNIT/ML VIAL SQ SCH ×4 (09:24→20:32)
[2022-03-20] MEDS: APIXABAN 5 MG TAB PO SCH ×2 (09:25→20:32)
[2022-03-20] MEDS: ATORVASTATIN 40 MG TAB PO SCH (09:25)
[2022-03-20] MEDS: CHOLECALCIFEROL 25 MCG (1000 IU) TABLET PO SCH (09:25)
[2022-03-20] MEDS: TAMSULOSIN 0.4 MG CAP.ER.24H PO SCH (09:25)
[2022-03-20] MEDS: LINAGLIPTIN 5 MG TABLET PO SCH (09:25)
[2022-03-20] MEDS: GLIMEPIRIDE 4 MG TAB PO SCH ×2 (09:26→17:33)
[2022-03-20] MEDS: NICOTINE 21MG/24HR PATCH TRANSDERM SCH (09:26)
--- NOTE | 2022-03-20 09:46 | P.CNNES ---
History of Present Illness Consult date: 03/20/22 Requesting physician: Sai Clements Reason for Consult: AMS History of Present Illness: Is a 56-year-old woman who presented emergency department because of altered mental status. History is obtained from medical record. According to the ED the note it seems that the patient was found by coworkers at home on the floor. There is questions that the patient may have taken more medication but she denied that to the ED as well as myself. She denies any overdose of medication by mistake or intentional area denies of any headache, nausea vomiting, fevers recently, any seizure-like activity in the past or recently. Denies history of stroke. Denies of any focal weakness. Seems the patient has history of bipolar, depression and schizoaffective disorder and some of the medication is she is on clozapine, fluvoxamine. She has history of pulmonary embolism and she is on eliquis. Some of the workup during this hospital visit consisted of: Patient has been afebrile so far during this hospital visit white blood cell has been within normal range. Sodium was 127, initial 0, glucose is 145, AST and ALT is within normal limits, calcium 7.7. Hemoglobin A1c is 8.1. Urine Analysis seems possible suggestive of urinary tract infection Urine drug screen is nondetected. The serum alcohol was less than 10, acetaminophen is less than 10 and salicylates is less than 1.0. CT of the head is reported as no acute bleed or mass effect. Small white matter abnormality as described above. Mild fluid within the left mastoid air cells. I personally reviewed the CT of the head and I feel there is a questionable subacute hypodensity over the right subcortical frontal region otherwise there is no bleed and the no significant encephalomalacia and it's appreciable. Review of Systems Review of system: The 12 point system was reviewed and apparent positive and negative per HPI. Past Medical History Past Medical History: COPD, Diabetes Mellitus, GERD/Reflux, Hypertension, Osteoarthritis (OA), Pulmonary Embolus (PE), Seizure Disorder Additional Past Medical History / Comment(s): Hx of colon polyps, neuorgenic bladder, anemia, self caths at home, thyroid nodule, UTI with hospital admission september 2021- klebsiella treated with ceftin History of Any Multi-Drug Resistant Organisms: None Reported Past Surgical History: Back Surgery, Breast Surgery, Ear Surgery Additional Past Surgical History / Comment(s): hunter breast reduction, breast biopsy, bladder stimulator implant, skin grafts to ear Past Anesthesia/Blood Transfusion Reactions: No Reported Reaction Past Psychological History: Bipolar, Depression, Schizoaffective Disorder Smoking Status: Current some day smoker Past Alcohol Use History: None Reported Additional Past Alcohol Use History / Comment(s): smokes approx half a pack a day, on and off from age 16 Past Drug Use History: None Reported - Past Family History Father Family Medical History: Cancer Additional Family Medical History / Comment(s): lung Sister(s) Family Medical History: Cancer Additional Family Medical History / Comment(s): ovarian Medications and Allergies Home Medications Medication Instructions Recorded Confirmed Type cloZAPine [Clozaril] 200 mg PO HS 01/21/16 03/19/22 History fluPHENAZine decanoate [Prolixin 50 mg IM Q14D 01/21/16 03/19/22 History Decanoate] Tamsulosin [Flomax] 0.4 mg PO DAILY 03/13/17 03/19/22 History Cholecalciferol [Vitamin D3 (25 25 mcg PO DAILY 07/22/20 03/19/22 History Mcg = 1000 Iu)] Omeprazole 20 mg PO HS 07/22/20 03/19/22 History Apixaban [Eliquis] 5 mg PO BID 10/24/20 03/19/22 History Budesonide/Formoterol Fumarate 2 puff INHALATION RT-BID 10/24/20 03/19/22 History [Symbicort 160-4.5 Mcg Inhaler] Ipratropium/Albuterol Sulfate 1 puff INHALATION RT-QID 10/24/20 03/19/22 History [Combivent Respimat Inhaler] fluvoxaMINE MALEATE [Luvox] 100 mg PO HS 10/24/20 03/19/22 History Atorvastatin [Lipitor] 40 mg PO DAILY 10/19/21 03/19/22 History Glimepiride [Amaryl] 4 mg PO BID 03/19/22 03/19/22 History LORazepam [Ativan] 0.5 mg PO HS 03/19/22 03/19/22 History Nicotine 21Mg/24Hr Patch [Habitrol] 1 patch TRANSDERM DAILY 03/19/22 03/19/22 History metFORMIN HCL ER [Glucophage XR] 500 mg PO BID 03/19/22 03/19/22 History ondansetron HCL [Zofran] 8 mg PO TID PRN 03/19/22 03/19/22 History sitaGLIPtin [Januvia] 100 mg PO DAILY 03/19/22 03/19/22 History Allergies Allergy/AdvReac Type Severity Reaction Status Date / Time haloperidol [From Haldol] AdvReac Muscles Verified 03/19/22 13:09 freeze up in arms and hands haloperidol lactate AdvReac Muscles Verified 03/19/22 13:09 [From Haldol] freeze up in arms and hands Physical Examination - Vital Signs Vital Signs: Vital Signs Temp Pulse Pulse Resp BP BP Pulse Ox 03/20/22 08:08 98.0 F 120 H 16 115/75 91 L 03/20/22 07:55 112 H 03/20/22 07:46 116 H 94 L 03/20/22 02:00 98.8 F 117 H 16 118/73 92 L 03/19/22 20:00 98.9 F 107 H 16 101/66 91 L 03/19/22 19:59 108 H 03/19/22 19:51 110 H 03/19/22 15:32 92 03/19/22 15:28 95 03/19/22 15:24 92 03/19/22 13:12 98.3 F 97 18 115/81 95 03/19/22 13:02 78 18 105/68 98 03/19/22 11:56 89 16 104/77 97 03/19/22 09:50 98.4 F 101 H 22 109/85 96 Intake and Output 03/19/22 03/20/22 03/20/22 22:59 06:59 14:59 Intake Total 590 Output Total 925 Balance -925 590 Intake: Oral 590 Output: Urine 925 Straight 225 Other: Voiding Method Toilet Diaper Incontinent Self-Catheterization # Voids 2 GENERAL: The patient is lying in bed and is not in acute distress. CHEST: The heart rate is regular rate rhythm. No murmurs to auscultation. LUNG: Clear to auscultation bilaterally no wheezing noted throughout. Not labored breathing. ABDOMEN/GI: Bowel sounds present in all 4 quadrants. No tenderness to palpation throughout. NEUROLOGICAL: Higher mental function: The patient is awake, alert, oriented to self, place and time. She is somewhat slow responding. Also when asked about year she would say her year and on third try correctly stated the current year. She is able to name objects (pen and watch) but was slow responding. Patient is following commands. No aphasia and no neglect. Cranial nerves: The pupils are round, equal and reactive to light. Visual calderon are full to confrontation throughout. Extraocular movement is intact no nystagmus is noted. Facial sensation is normal to touch throughout. The facial strength is normal throughout. Hearing is moderately decreased bilaterally to hand rub. Tongue is midline and moved [id number] without any difficulty. No dysarthria is noted. Shoulder shrug is normal bilaterally. Motor: The strength is 5 over 5 throughout. Normal tone and bulk. Cerebellum: Normal finger to nose bilaterally. Sensation: Sensation is normal to touch throughout. Reflexes (right/left): 1+ throughout. Plantars are mute bilaterally. Results - Laboratory Findings CBC and BMP: 03/20/22 04:10 03/20/22 04:10 Abnormal Lab Findings: Abnormal Labs 03/19/22 03/19/22 03/19/22 10:01 10:24 10:24 Plt Count 130 L Eosinophils # Sodium Chloride Carbon Dioxide Glucose POC Glucose (mg/dL) 152 H Hemoglobin A1c Calcium Creatine Kinase Total Protein Urine Appearance Cloudy H Urine Nitrite Positive H Ur Leukocyte Esterase Large H Urine WBC 22 H Urine WBC Clumps Moderate H Amorphous Sediment Occasional H Urine Bacteria Moderate H 03/19/22 03/19/22 03/19/22 10:24 17:13 17:44 Plt Count Eosinophils # Sodium 127 L Chloride 95 L Carbon Dioxide 21 L Glucose 145 H POC Glucose (mg/dL) 306 H Hemoglobin A1c 8.1 H Calcium 7.7 L Creatine Kinase 186 H Total Protein 5.7 L Urine Appearance Urine Nitrite Ur Leukocyte Esterase Urine WBC Urine WBC Clumps Amorphous Sediment Urine Bacteria 03/19/22 03/20/22 03/20/22 20:59 04:10 08:09 Plt Count Eosinophils # 0 L Sodium Chloride Carbon Dioxide Glucose POC Glucose (mg/dL) 267 H 171 H Hemoglobin A1c Calcium Creatine Kinase Total Protein Urine Appearance Urine Nitrite Ur Leukocyte Esterase Urine WBC Urine WBC Clumps Amorphous Sediment Urine Bacteria Assessment and Plan Assessment: As is a 56-year-old woman who was found down by coworkers on the floor according to the medical record. Altered mental status. It seems due to probable acute urinary tract infection. On the CT of the head I feel the patient has possible subacute right frontal hypodensity and rule out stroke. Also has metabolic encephalopathy (sodium 127) Hyponatremia Probable acute urinary tract infection Diabetes mellitus and recent HbA1c is 8.1 History of pulmonary embolism on Eliquis Bipolar Depression Schizoaffective disorder Plan: I ordered MRI the brain to rule out any acute or subacute ischemia or any enhancement. Patient does have a stroke we'll get the rest of stroke workup. I ordered a routine EEG because of the patient confusion. Also ordered TSH, vitamin B12, folate, ammonia level, ionized calcium. Patient is on Eliquis 5mg bid and Lipitor 40mg daily (both home medication). Every 4 hours neuro checks We'll defer the rest of the medical management to primary team The plan is discussed with the patient and her nurse was at bedside. Thank you for the consultation Dr. Bronson will start neurology service tomorrow a.m. Time with Patient: Greater than 30
[2022-03-20 09:54] LABS: African American GFR (CKD) 64.1 (60.0-200.0); Albumin 3.7 g/dL (3.8-4.9); Albumin/Globulin Ratio 2.18 (1.60-3.17); Anion Gap 10.5 mmol/L (10.00-18.00); BUN/Creat Ratio 14.36 Ratio (12.00-20.00); Blood Urea Nitrogen 15.8 mg/dL (9.0-27.0); Calcium 8.5 mg/dL (8.7-10.3); Carbon Dioxide 24.5 mmol/L (20.0-27.5); Globulin 1.7 g/dL (1.6-3.3); Non-African American GFR(CKD) 55.3 (60.0-200.0); Potassium 3.8 mmol/L (3.5-5.5); Total Bilirubin 0.2 mg/dL (0.30-1.20); Total Protein 5.4 g/dL (6.2-8.2)
[2022-03-20 11:38] LABS: Glucose,Whole Blood 198 mg/dL (70-110)
[2022-03-20 12:55] LABS: T4, Free (Free Thyroxine) 1.51 ng/dL (0.78-2.19)
[2022-03-20] MEDS: SODIUM CHLORIDE 0.9% 1,000 ML IV SCH (17:34)
[2022-03-20 17:51] LABS: Glucose,Whole Blood 188 mg/dL (70-110)
[2022-03-20 20:12] LABS: Glucose,Whole Blood 232 mg/dL (70-110)
[2022-03-20] MEDS: PANTOPRAZOLE 40 MG TABLET PO SCH (20:32)
[2022-03-20] MEDS: LORazepam 0.5 MG TAB PO SCH (20:33)
[2022-03-20] MEDS: cloZAPine 100 MG TAB PO SCH (20:33)
[2022-03-21] MEDS: SODIUM CHLORIDE 0.9% 1,000 ML IV SCH ×2 (06:18→18:44)
[2022-03-21 06:56] LABS: Glucose,Whole Blood 177 mg/dL (70-110)
[2022-03-21] MEDS: SYMBICORT 160-4.5 MCG INHALER INHALATION SCH ×2 (07:54→20:44)
[2022-03-21] MEDS: INSULIN ASPART (NovoLOG) 100 UNIT/ML VIAL SQ SCH ×4 (09:25→20:38)
[2022-03-21] MEDS: APIXABAN 5 MG TAB PO SCH ×2 (09:25→20:37)
[2022-03-21] MEDS: ATORVASTATIN 40 MG TAB PO SCH (09:25)
[2022-03-21] MEDS: CYANOCOBALAMIN 500 MCG TAB PO SCH (09:25)
[2022-03-21] MEDS: NICOTINE 21MG/24HR PATCH TRANSDERM SCH (09:25)
[2022-03-21] MEDS: GLIMEPIRIDE 4 MG TAB PO SCH ×2 (09:26→18:43)
[2022-03-21] MEDS: TAMSULOSIN 0.4 MG CAP.ER.24H PO SCH (09:26)
[2022-03-21] MEDS: CHOLECALCIFEROL 25 MCG (1000 IU) TABLET PO SCH (09:26)
[2022-03-21] MEDS: LINAGLIPTIN 5 MG TABLET PO SCH (09:26)
[2022-03-21 10:40] LABS: Basophils # (A) 0.01 X 10*3/uL (0.00-0.10); Basophils % (A) 0.2 %; Eosinophils # (A) 0 X 10*3/uL (0.04-0.35); Eosinophils % (A) 0 %; HCT 37.5 % (37.2-46.3); HGB 11.8 g/dL (12.0-15.0); Immature Grans, Automated 0.3 %; Lymphocytes # (A) 1.49 X 10*3/uL (0.90-5.00); Lymphocytes % (A) 24.8 %; MCH 27.8 pg (27.0-32.0); MCHC 31.5 g/dL (32.0-37.0); MCV 88.4 fL (80.0-97.0); Mean Platelet Volume 11.9 fL (9.5-12.2); Monocytes # (A) 0.35 X 10*3/uL (0.20-1.00); Monocytes % (A) 5.8 %; NRBC Per 100 WBC 0 /100 WBCS (0.0-0.0); Neutrophils # (A) 4.14 X 10*3/uL (1.80-7.70); Neutrophils % (A) 68.9 %; Platelet Count 147 X 10*3/uL (140-440); RBC 4.24 X 10*6/uL (4.10-5.20); RDW 14.4 % (11.5-14.5); WBC 6.01 X 10*3/uL (4.50-10.00)
[2022-03-21 11:02] LABS: African American GFR (CKD) 71.9 (60.0-200.0); Anion Gap 13.2 mmol/L (10.00-18.00); BUN/Creat Ratio 12.7 Ratio (12.00-20.00); Blood Urea Nitrogen 12.7 mg/dL (9.0-27.0); Calcium 8.7 mg/dL (8.7-10.3); Carbon Dioxide 24.8 mmol/L (20.0-27.5); Non-African American GFR(CKD) 62.1 (60.0-200.0); Potassium 4.1 mmol/L (3.5-5.5)
[2022-03-21 11:20] LABS: Glucose,Whole Blood 263 mg/dL (70-110)
--- NOTE | 2022-03-21 12:21 | EEG ---
ELECTROENCEPHALOGRAM REPORT PREAMBLE: This is a 56-year-old female with altered mental status. The patient was found by coworkers at home on the floor. CURRENT MEDICATIONS: 1. Albuterol. 2. Eliquis. 3. Lipitor. 4. Symbicort. 5. B12. 6. Ativan. 7. Protonix. 8. Tradjenta. 9. Amaryl. EEG FINDINGS: This is a 21-channel digital EEG recorded with video component, utilizing 10/20 international system with referential and bipolar montages. Background consists of well developed, well regulated moderate voltage activity in 8 to 9 hertz alpha. Background is posterior dominant and reactive to eye opening and closing. Photic driving response was not seen. Different stages of sleep were not seen. No focal or generalized epileptiform activity was seen. The EKG channel showed no obvious arrhythmia. IMPRESSION: This is a normal awake and drowsy EEG. No focal, lateralized or epileptiform activity was seen. MMODL / IJN: [id number] /
[2022-03-21 13:10] VITALS: BMI 29.5
--- NOTE | 2022-03-21 15:49 | P.PN ---
Subjective Progress Note Date: 03/21/22 Patient is a 56-year-old female with a known history of schizoaffective disorder, bipolar and depression, hypertension, history of PE and prior history of urinary tract infection and currently some day smoker was brought to the hospital by ambulance due to concern for generalized weakness. Patient was found by her neighbor at home on the floor and ambulance was called. Patient is awake alert but not a good historian. Patient is on multiple psychiatric medications. Denies any complaints of chest pain or shortness of breath. Patient was afebrile on admission. Tachycardia with heart rate 101 on admission. No complaints of nausea vomiting or abdominal pain. Denies any complaints of diarrhea. EKG showed sinus tachycardia with low voltage criteria in the precordial leads. CT head showed no acute bleed or mass-effect. Small white matter abnormalities. Mild fluid within the left mastoid air cells. Chest x-ray showed no acute cardiopulmonary process. Laboratory data showed WBC 6.0 hemoglobin 13.0 and platelets 130 sodium 127 potassium 3.6 and chloride 95 bicarb is 21 BUN 16 and creatinine 0.85 and blood sugar is 145 blood calcium 7.7 mg are not elevated. CK1 86 and troponin x2 negative Urinalysis showed cloudy with positive nitrite and large leukocyte esterase with WBC clumps and less than 1 squamous epithelial cells. UDS is negative. 03/21/2022 Patient is seen and evaluated in follow-up today continues to have some periods of confusion although is more alert and oriented. Patient extremely anxious and wanting to go home reporting she has a mess to clean up. Neurology consulted and following initially recommended an MRI along with EEG. Patient has a bladder stimulator that appears to be noncompatible with MRI and EEG is ordered for today. Patient is maintained on IV antibiotics in the form of ceftriaxone and will continue as preliminary urine culture showing gram-negative bacilli. Will await finalized culture to determine discharge antibiotics. Encouraged inc reased activity as tolerated and also waiting for physical therapy to evaluate the patient. Patient is a diabetic and recommend Accu-Cheks before meals and at bedtime. Patient is afebrile denies chest pain or shortness of breath. Patient denies nausea or vomiting and tolerating diet. Review of systems: Constitutional: No reports of fatigue, fever, or chills Cardiovascular: No reports of chest pain or palpitations Respiratory: No reports of shortness of breath or cough GI: No reports of nausea, vomiting, or diarrhea : No reports of dysuria or retention Neurovascular: No reports of weakness or numbness All medications have been reviewed Active Medications Albuterol/Ipratropium (Ipratropium-Albuterol 3 Ml Neb) 3 ml INHALATION RT-QID PRN PRN Reason: Shortness Of Breath Or Wheezing Last Admin: 03/20/22 15:18 Dose: 3 ml Apixaban (Apixaban 5 Mg Tab) 5 mg PO BID [facility]; Protocol Last Admin: 03/21/22 09:25 Dose: 5 mg Atorvastatin Calcium (Atorvastatin 40 Mg Tab) 40 mg PO DAILY [facility] Last Admin: 03/21/22 09:25 Dose: 40 mg Budesonide/Formoterol Fumarate (Symbicort 160-4.5 Mcg Inhaler) 2 puff INHALATION RT-BID [facility] Last Admin: 03/21/22 07:54 Dose: Not Given Cholecalciferol (Cholecalciferol 25 Mcg (1000 Iu) Tablet) 25 mcg PO DAILY [facility] Last Admin: 03/21/22 09:26 Dose: 25 mcg Clozapine (Clozapine 100 Mg Tab) 200 mg PO [facility] Stop: 03/23/22 23:00 Last Admin: 03/20/22 20:33 Dose: 200 mg Cyanocobalamin (Cyanocobalamin 500 Mcg Tab) 1,000 mcg PO DAILY [facility] Last Admin: 03/21/22 09:25 Dose: 1,000 mcg Dextrose/Water (Dextrose 50% Syringe 50 Ml) 25 ml IVP PER PROTOCOL PRN; Protocol PRN Reason: Hypoglycemia Dextrose/Water (Dextrose 50% Syringe 50 Ml) 50 ml IVP PER PROTOCOL PRN; Protocol PRN Reason: Hypoglycemia Fluvoxamine Maleate (Fluvoxamine 50 Mg Tab) 100 mg PO [facility] Last Admin: 03/20/22 20:33 Dose: 100 mg Glimepiride (Glimepiride 4 Mg Tab) 4 mg PO AC-BID [facility] Last Admin: 03/21/22 09:26 Dose: 4 mg Sodium Chloride (Saline 0.9%) 1,000 mls @ 75 mls/hr IV .[id number] [facility] Last Admin: 03/21/22 06:18 Dose: 75 mls/hr Ceftriaxone Sodium 1 gm/ (Sodium Chloride) 50 mls @ 100 mls/hr IVPB Q12HR [facility]; Protocol Last Admin: 03/21/22 09:26 Dose: 100 mls/hr Insulin Aspart (Insulin Aspart (Novolog) 100 Unit/Ml Vial) 0 unit SQ ACHS [facility]; Protocol Last Admin: 03/21/22 13:09 Dose: 3 unit Linagliptin (Linagliptin 5 Mg Tablet) 5 mg PO DAILY [facility] Last Admin: 03/21/22 09:26 Dose: 5 mg Lorazepam (Lorazepam 0.5 Mg Tab) 0.5 mg PO HS [facility] Last Admin: 03/20/22 20:33 Dose: 0.5 mg Naloxone HCl (Naloxone 0.4 Mg/Ml 1 Ml Vial) 0.2 mg IV Q2M PRN PRN Reason: Opioid Reversal Nicotine (Nicotine 21mg/24hr Patch) 1 patch TRANSDERM DAILY [facility] Last Admin: 03/21/22 09:25 Dose: 1 patch Ondansetron HCl (Ondansetron 4 Mg Tab) 8 mg PO TID PRN PRN Reason: Nausea Pantoprazole Sodium (Pantoprazole 40 Mg Tablet) 40 mg PO HS [facility] Last Admin: 03/20/22 20:32 Dose: 40 mg Tamsulosin HCl (Tamsulosin 0.4 Mg Cap.Er.24h) 0.4 mg PO DAILY [facility] Last Admin: 03/21/22 09:26 Dose: 0.4 mg PHYSICAL EXAMINATION: Patient is sitting up in the bed comfortably, no acute distress, awake alert and oriented. Somewhat anxious and wanting to go home Patient is a poor historian.. HEENT: Normocephalic. Neck is supple. Pupils reactive. Nostrils clear. Oral cavity is moist. Neck reveals no JVD, carotid bruits, or thyromegaly. CHEST EXAMINATION: Trachea is central. Symmetrical expansion. Lung calderon clear to auscultation and percussion. Bibasilar diminished sounds. No wheezing or rhonchi. CARDIAC: Normal S1, S2 with no gallops. No murmurs ABDOMEN: Soft. Bowel sounds normal. No organomegaly. No abdominal bruits. Extremities: reveal no edema. No clubbing or cyanosis Neurologically awake, alert, oriented x to with well-coordinated movements. No gross focal deficits noted Skin: No rash or skin lesions. Psychiatric: Cooperative. Could not be assessed completely. Musculoskeletal: No joint swelling or deformity. Normal range of motion. Assessment: Altered mental status possible metabolic encephalopathy Generalized weakness and patient was found on the floor. Hypovolemic hyponatremia, improved Acute urinary tract infection, present on admission Schizoaffective disorder/bipolar/depression Currently some day smoker Hypertension Diabetes type 2 [id number] History of PE in September 2021 currently on Eliquis History of seizure resolved GERD COPD, not in exacerbation DVT prophylaxis patient is already on Eliquis Plan: Patient will be continued on IV hydration with normal saline and monitor sodium level closely. Sodium level is 145 with a potassium of 4.1 and current creatinine is 1.0 Continue with ceftriaxone. Preliminary showing gram-negative bacilli and blood cultures remain negative. Awaiting finalized cultures to determine discharge antibiotics Continue with psychiatric medications including Clozaril, Luvox and Ativan at bedtime. Neurology following the patient MRI along with EEG is ordered and pending at this time. Patient apparently has a bladder stimulator an unknown if compatible with MRI device. EEG was negative for any epileptiform discharges. Currently awaiting urine culture results and will discuss further with legal guardian and daughter about discharge planning. Case management is following. Due to multiple complex medical issues, prognosis is guarded. Possible discharge in 24 hours The impression and plan of care has been dictated by Gogo Yepez, Nurse Practitioner as directed. MD Carlos I have performed a history and examination and MDM of this patient, discussed the same with the dictator, and agree with the dictator's assessment and plan as written ,documented as a scribe. Based on total visit time, I have performed more than 50% of the visit. Objective - Vital Signs Vital signs: Vital Signs Temp 97.8 F 03/21/22 06:57 Pulse 119 H 03/21/22 06:57 Resp 20 03/21/22 06:57 BP 112/69 03/21/22 06:57 Pulse Ox 94 L 03/21/22 07:54 FiO2 Intake & Output 03/20/22 03/21/22 03/21/22 18:59 06:59 18:59 Intake Total 590 950 Balance 590 950 Intake: Intake, IV Titration 950 Amount Sodium Chloride 0.9% 1, 900 000 ml @ 75 mls/hr IV . [id number] JONES Rx#:[id number] 1 gm In 50 Sodium Chloride 0.9% 50 ml @ 100 mls/hr IVPB Q12HR JONES Rx#:[id number] Oral 590 Other: Voiding Method Toilet Diaper Incontinent Self-Catheterization # Voids 2 # Bowel Movements 1 - Labs CBC & Chem 7: 03/21/22 06:16 03/21/22 06:16 Labs: Abnormal Lab Results - Last 24 Hours (Table) 03/20/22 03/20/22 03/20/22 Range/Units 09:45 11:36 17:48 POC Glucose (mg/dL) 198 H 188 H (70-110) mg/dL TSH 0.275 L (0.465-4.680) mIU/L 03/20/22 03/21/22 Range/Units 20:11 06:54 POC Glucose (mg/dL) 232 H 177 H (70-110) mg/dL TSH (0.465-4.680) mIU/L Microbiology - Last 24 Hours (Table) 03/19/22 13:06 Blood Culture - Preliminary Blood No Growth after 24 hours 03/19/22 13:08 Blood Culture - Preliminary Blood No Growth after 24 hours 03/19/22 10:24 Urine Culture - Preliminary Urine,Catheterized Gram Neg Bacilli
[2022-03-21 17:05] LABS: Glucose,Whole Blood 121 mg/dL (70-110)
[2022-03-21 20:29] LABS: Glucose,Whole Blood 328 mg/dL (70-110)
[2022-03-21] MEDS: PANTOPRAZOLE 40 MG TABLET PO SCH (20:37)
[2022-03-21] MEDS: LORazepam 0.5 MG TAB PO SCH (20:37)
[2022-03-21] MEDS: cloZAPine 100 MG TAB PO SCH (20:37)
[2022-03-21] MEDS: IPRATROPIUM-ALBUTEROL 3 ML NEB INHALATION PRN (20:44)
[2022-03-22 07:08] LABS: Glucose,Whole Blood 196 mg/dL (70-110)
[2022-03-22] MEDS: SYMBICORT 160-4.5 MCG INHALER INHALATION SCH ×2 (08:38→19:45)
[2022-03-22] MEDS: ATORVASTATIN 40 MG TAB PO SCH (09:16)
[2022-03-22] MEDS: CHOLECALCIFEROL 25 MCG (1000 IU) TABLET PO SCH (09:16)
[2022-03-22] MEDS: CYANOCOBALAMIN 500 MCG TAB PO SCH (09:16)
[2022-03-22] MEDS: APIXABAN 5 MG TAB PO SCH ×2 (09:16→20:57)
[2022-03-22] MEDS: TAMSULOSIN 0.4 MG CAP.ER.24H PO SCH (09:16)
[2022-03-22] MEDS: INSULIN ASPART (NovoLOG) 100 UNIT/ML VIAL SQ SCH ×4 (09:17→20:58)
[2022-03-22] MEDS: NICOTINE 21MG/24HR PATCH TRANSDERM SCH (09:17)
[2022-03-22] MEDS: GLIMEPIRIDE 4 MG TAB PO SCH ×2 (09:18→18:35)
[2022-03-22] MEDS: LINAGLIPTIN 5 MG TABLET PO SCH (09:19)
[2022-03-22] MEDS: SODIUM CHLORIDE 0.9% 1,000 ML IV SCH ×2 (09:23→21:03)
[2022-03-22 11:08] LABS: Glucose,Whole Blood 283 mg/dL (70-110)
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
[2022-03-22] MEDS ORDERED: CYANOCOBALAMIN 1,000 MCG/ML 1 ML VIAL IM ONE (12:00)
[2022-03-22 12:56] LABS: African American GFR (CKD) 88 (>60 ml/min/1.73 sqM); Anion Gap 5 mmol/L; Blood Urea Nitrogen 14 mg/dL (7-17); Calcium 7.8 mg/dL (8.4-10.2); Carbon Dioxide 25 mmol/L (22-30); Chloride 108 mmol/L (98-107); Glucose 213 mg/dL (74-99); Non-African American GFR(CKD) 76 (>60 ml/min/1.73 sqM); Sodium 138 mmol/L (137-145)
--- NOTE | 2022-03-22 16:05 | US ---
EXAMINATION TYPE: US carotid duplex BILAT DATE OF EXAM: 03/22/2022 COMPARISON: NONE CLINICAL HISTORY: 56-year-old female AMS, slurred speech TECHNIQUE: Carotid duplex ultrasound examination. Indirect Doppler criteria was utilized. FINDINGS: EXAM MEASUREMENTS: RIGHT: Peak Systolic Velocity (PSV) cm/sec ----- Right CCA: 78.6 ----- Right ICA: 98.7 ----- Right ECA: 136 ICA/CCA ratio: 1.3 RIGHT: End Diastole cm/sec ----- Right CCA: 26.6 ----- Right ICA: 44.2 ----- Right ECA: 29.3 LEFT: Peak Systolic Velocity (PSV) cm/sec ----- Left CCA: 98.7 ----- Left ICA: 102 ----- Left ECA: 84.9 ICA/CCA ratio: 1.0 LEFT: End Diastole cm/sec ----- Left CCA: 33.9 ----- Left ICA: 41.9 ----- Left ECA: 23.5 VERTEBRALS (direction of flow): Right Vertebral: Antegrade Left Vertebral: Antegrade Davis scale images show minimal intimal thickening at either bifurcation. BUTTER PRINTER NOTES: No significant stenosis seen IMPRESSION: No hemodynamically significant internal carotid artery stenosis on either side. Criteria for Assigning % of Stenosis / Diameter reduction (Estimation based on the indirect measurements of the internal carotid artery velocities (ICA PSV). 1. Normal (no stenosis)=ICA PSV < 125 cm/s: ratio < 2.0: ICA EDV<40 cm/s. 2. Less than 50% stenosis=ICA PSV < 125 cm/s: ratio < 2.0: ICA EDV<40 cm/s. 3. 50 to 69% stenosis=ICA PSV of 125 to 230 cm/s: ration 2.0 ? 4.0: ICA EDV 40-100 cm/s. 4. Greater than 70% stenosis to near occlusion= ICA PSV > 230 cm/s: ratio > 4.0: ICA EDV > 100 cm/s. 5. Near occlusion= ICA PSV velocities may be low or undetectable: variable ratio and ICA EDV. 6. Total occlusion=unable to detect flow.
--- NOTE | 2022-03-22 16:11 | P.PN ---
Subjective Progress Note Date: 03/22/22 Patient is a 56-year-old female with a known history of schizoaffective disorder, bipolar and depression, hypertension, history of PE and prior history of urinary tract infection and currently some day smoker was brought to the hospital by ambulance due to concern for generalized weakness. Patient was found by her neighbor at home on the floor and ambulance was called. Patient is awake alert but not a good historian. Patient is on multiple psychiatric medications. Denies any complaints of chest pain or shortness of breath. Patient was afebrile on admission. Tachycardia with heart rate 101 on admission. No complaints of nausea vomiting or abdominal pain. Denies any complaints of diarrhea. EKG showed sinus tachycardia with low voltage criteria in the precordial leads. CT head showed no acute bleed or mass-effect. Small white matter abnormalities. Mild fluid within the left mastoid air cells. Chest x-ray showed no acute cardiopulmonary process. Laboratory data showed WBC 6.0 hemoglobin 13.0 and platelets 130 sodium 127 potassium 3.6 and chloride 95 bicarb is 21 BUN 16 and creatinine 0.85 and blood sugar is 145 blood calcium 7.7 mg are not elevated. CK1 86 and troponin x2 negative Urinalysis showed cloudy with positive nitrite and large leukocyte esterase with WBC clumps and less than 1 squamous epithelial cells. UDS is negative. 03/21/2022 Patient is seen and evaluated in follow-up today continues to have some periods of confusion although is more alert and oriented. Patient extremely anxious and wanting to go home reporting she has a mess to clean up. Neurology consulted and following initially recommended an MRI along with EEG. Patient has a bladder stimulator that appears to be noncompatible with MRI and EEG is ordered for today. Patient is maintained on IV antibiotics in the form of ceftriaxone and will continue as preliminary urine culture showing gram-negative bacilli. Will await finalized culture to determine discharge antibiotics. Encouraged inc reased activity as tolerated and also waiting for physical therapy to evaluate the patient. Patient is a diabetic and recommend Accu-Cheks before meals and at bedtime. Patient is afebrile denies chest pain or shortness of breath. Patient denies nausea or vomiting and tolerating diet. 03/22/2022 Patient is seen and evaluated in follow-up this morning currently sitting up in the chair after just working with physical therapy. Patient is walking around with standby assist and has been walking almost times per nursing staff and the halls. Patient continues with some confusion although appears more appropriate and awake today. Patient is continued on IV antibiotics in the form of ceftriaxone while awaiting for cultures to finalized. Neurology following as well patient underwent EEG currently awaiting carotid Dopplers. Patient maintained on gentle IV hydration and awaiting follow-up a.m. labs. Recommend monitoring blood sugars closely as blood sugars have been elevated. Hemoglobin A1c is 8.1. Patient currently afebrile denies chest pain or shortness of breath. No reports of nausea or vomiting noted and tolerating diet. Review of systems: Constitutional: No reports of fatigue, fever, or chills Cardiovascular: No reports of chest pain or palpitations Respiratory: No reports of shortness of breath or cough GI: No reports of nausea, vomiting, or diarrhea : No reports of dysuria or retention Neurovascular: No reports of weakness or numbness All medications have been reviewed Active Medications Albuterol/Ipratropium (Ipratropium-Albuterol 3 Ml Neb) 3 ml INHALATION RT-QID PRN PRN Reason: Shortness Of Breath Or Wheezing Last Admin: 03/21/22 20:44 Dose: 3 ml Apixaban (Apixaban 5 Mg Tab) 5 mg PO BID JONES; Protocol Last Admin: 03/22/22 09:16 Dose: 5 mg Atorvastatin Calcium (Atorvastatin 40 Mg Tab) 40 mg PO DAILY [facility] Last Admin: 03/22/22 09:16 Dose: 40 mg Budesonide/Formoterol Fumarate (Symbicort 160-4.5 Mcg Inhaler) 2 puff INHALATION RT-BID [facility] Last Admin: 03/22/22 08:38 Dose: 2 puff Cholecalciferol (Cholecalciferol 25 Mcg (1000 Iu) Tablet) 25 mcg PO DAILY [facility] Last Admin: 03/22/22 09:16 Dose: 25 mcg Clozapine (Clozapine 100 Mg Tab) 200 mg PO HS JONES Stop: 03/23/22 23:00 Last Admin: 03/21/22 20:37 Dose: 200 mg Cyanocobalamin (Cyanocobalamin 500 Mcg Tab) 1,000 mcg PO DAILY [facility] Last Admin: 03/22/22 09:16 Dose: 1,000 mcg Dextrose/Water (Dextrose 50% Syringe 50 Ml) 25 ml IVP PER PROTOCOL PRN; Protoc ol PRN Reason: Hypoglycemia Dextrose/Water (Dextrose 50% Syringe 50 Ml) 50 ml IVP PER PROTOCOL PRN; Protocol PRN Reason: Hypoglycemia Fluvoxamine Maleate (Fluvoxamine 50 Mg Tab) 100 mg PO [facility] Last Admin: 03/21/22 20:37 Dose: 100 mg Glimepiride (Glimepiride 4 Mg Tab) 4 mg PO AC-BID [facility] Last Admin: 03/22/22 09:18 Dose: 4 mg Sodium Chloride (Saline 0.9%) 1,000 mls @ 75 mls/hr IV .[id number] [facility] Last Admin: 03/22/22 09:23 Dose: 75 mls/hr Ceftriaxone Sodium 1 gm/ (Sodium Chloride) 50 mls @ 100 mls/hr IVPB Q12HR [facility]; Protocol Last Admin: 03/22/22 09:17 Dose: 100 mls/hr Insulin Aspart (Insulin Aspart (Novolog) 100 Unit/Ml Vial) 0 unit SQ ACHS [facility]; Protocol Last Admin: 03/22/22 12:56 Dose: 3 unit Linagliptin (Linagliptin 5 Mg Tablet) 5 mg PO DAILY [facility] Last Admin: 03/22/22 09:19 Dose: 5 mg Lorazepam (Lorazepam 0.5 Mg Tab) 0.5 mg PO [facility] Last Admin: 03/21/22 20:37 Dose: 0.5 mg Naloxone HCl (Naloxone 0.4 Mg/Ml 1 Ml Vial) 0.2 mg IV Q2M PRN PRN Reason: Opioid Reversal Nicotine (Nicotine 21mg/24hr Patch) 1 patch TRANSDERM DAILY [facility] Last Admin: 03/22/22 09:17 Dose: 1 patch Ondansetron HCl (Ondansetron 4 Mg Tab) 8 mg PO TID PRN PRN Reason: Nausea Pantoprazole Sodium (Pantoprazole 40 Mg Tablet) 40 mg PO [facility] Last Admin: 03/21/22 20:37 Dose: 40 mg Tamsulosin HCl (Tamsulosin 0.4 Mg Cap.Er.24h) 0.4 mg PO DAILY [facility] Last Admin: 03/22/22 09:16 Dose: 0.4 mg PHYSICAL EXAMINATION: Patient is sitting up in the chair, no acute distress, awake alert and oriented. Patient is a poor historian.. HEENT: Normocephalic. Neck is supple. Pupils reactive. Nostrils clear. Oral cavity is moist. Neck reveals no JVD, carotid bruits, or thyromegaly. CHEST EXAMINATION: Trachea is central. Symmetrical expansion. Lung calderon clear to auscultation and percussion. Bibasilar diminished sounds. No wheezing or rhonchi. CARDIAC: Normal S1, S2 with no gallops. No murmurs ABDOMEN: Soft. Bowel sounds normal. No organomegaly. No abdominal bruits. Extremities: reveal no edema. No clubbing or cyanosis Neurologically awake, alert, oriented x to with well-coordinated movements. No gross focal deficits noted Skin: No rash or skin lesions. Psychiatric: Cooperative. Non-suicidal Musculoskeletal: No joint swelling or deformity. Normal range of motion. Assessment: Altered mental status possible metabolic encephalopathy Generalized weakness and patient was found on the floor. Hypovolemic hyponatremia, improved Acute urinary tract infection, present on admission Schizoaffective disorder/bipolar/depression Currently some day smoker Hypertension Diabetes type 2 [id number] History of PE in September 2021 currently on Eliquis History of seizure resolved GERD COPD, not in exacerbation DVT prophylaxis patient is already on Eliquis Plan: Patient will be continued on IV hydration with normal saline and monitor sodium level closely. A.m. labs pending at this time Continue with ceftriaxone. Preliminary showing gram-negative bacilli and blood cultures remain negative. Awaiting finalized cultures to determine discharge antibiotics Continue with psychiatric medications including Clozaril, Luvox and Ativan at bedtime. Neurology following the patient and underwent EEG and also awaiting carotid study. Patient unable to receive MRI due to bladder stimulator Currently awaiting urine culture results and will discuss further with legal guardian and daughter about discharge planning. Case management is following. Due to multiple complex medical issues, prognosis is guarded. Probable discharge in 24 hours The impression and plan of care has been dictated by Gogo Yepez, Nurse Practitioner as directed. MD Carlos I have performed a history and examination and MDM of this patient, discussed the same with the dictator, and agree with the dictator's assessment and plan as written ,documented as a scribe. Based on total visit time, I have performed more than 50% of the visit. Objective - Vital Signs Vital signs: Vital Signs Temp 97.5 F L 03/22/22 12:35 Pulse 109 H 03/22/22 12:35 Resp 16 03/22/22 12:35 BP 124/83 03/22/22 12:35 Pulse Ox 95 03/22/22 12:35 FiO2 Intake & Output 03/21/22 03/22/22 03/22/22 18:59 06:59 18:59 Intake Total 950 Output Total 1262 540 Balance -1262 410 Weight 71 kg Intake: Intake, IV Titration 950 Amount Sodium Chloride 0.9% 1, 900 000 ml @ 75 mls/hr IV . [id number] [facility] Rx#:[id number] cefTRIAXone 1 gm In 50 Sodium Chloride 0.9% 50 ml @ 100 mls/hr IVPB Q12HR [facility] Rx#:[id number] Output: Urine 540 Post Void Residual 1262 Other: Voiding Method Toilet Toilet Diaper Diaper Incontinent Incontinent Self-Catheterization Self-Catheterization # Voids 1 1 - Labs CBC & Chem 7: 03/21/22 06:16 03/22/22 12:11 Labs: Abnormal Lab Results - Last 24 Hours (Table) 03/21/22 03/21/22 03/22/22 Range/Units 17:04 20:28 07:07 Chloride (98-107) mmol/L Glucose (74-99) mg/dL POC Glucose (mg/dL) 121 H 328 H 196 H (70-110) mg/dL Calcium (8.4-10.2) mg/dL 03/22/22 03/22/22 Range/Units 11:07 12:11 Chloride 108 H (98-107) mmol/L Glucose 213 H (74-99) mg/dL POC Glucose (mg/dL) 283 H (70-110) mg/dL Calcium 7.8 L (8.4-10.2) mg/dL Microbiology - Last 24 Hours (Table) 03/19/22 13:06 Blood Culture - Preliminary Blood No Growth after 72 hours 03/19/22 13:08 Blood Culture - Preliminary Blood No Growth after 72 hours 03/19/22 10:24 Urine Culture - Final Urine,Catheterized Klebsiella pneumoniae
[2022-03-22 16:59] LABS: Glucose,Whole Blood 140 mg/dL (70-110)
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
[2022-03-22 20:53] LABS: Glucose,Whole Blood 211 mg/dL (70-110)
[2022-03-22] MEDS: PANTOPRAZOLE 40 MG TABLET PO SCH (20:57)
[2022-03-22] MEDS: cloZAPine 100 MG TAB PO SCH (20:58)
[2022-03-22] MEDS: LORazepam 0.5 MG TAB PO SCH (20:58)
[2022-03-23 06:09] LABS: Basophils % (A) 0 %; Eosinophils % (A) 0 %; HCT 38.9 % (34.0-46.0); HGB 12.7 gm/dL (11.4-16.0); Lymphocytes # (A) 1.1 k/uL (1.0-4.8); Lymphocytes % (A) 20 %; MCH 28.6 pg (25.0-35.0); MCHC 32.8 g/dL (31.0-37.0); MCV 87.3 fL (80.0-100.0); Mean Platelet Volume 8.9; Monocytes # (A) 0.2 k/uL (0-1.0); Monocytes % (A) 4 %; Neutrophils # (A) 4.1 k/uL (1.3-7.7); Neutrophils % (A) 75 %; Platelet Count 153 k/uL (150-450); RBC 4.45 m/uL (3.80-5.40); RDW 14.7 % (11.5-15.5); WBC 5.5 k/uL (3.8-10.6)
[2022-03-23 07:11] LABS: Glucose,Whole Blood 193 mg/dL (70-110)
[2022-03-23 07:51] VITALS: BP 146/99; PULSE 109; RESP 18; TEMP 97.6
[2022-03-23] MEDS: SYMBICORT 160-4.5 MCG INHALER INHALATION SCH (08:34)
[2022-03-23] MEDS: GLIMEPIRIDE 4 MG TAB PO SCH (09:43)
[2022-03-23] MEDS: NICOTINE 21MG/24HR PATCH TRANSDERM SCH (09:44)
[2022-03-23] MEDS: APIXABAN 5 MG TAB PO SCH (09:44)
[2022-03-23] MEDS: CHOLECALCIFEROL 25 MCG (1000 IU) TABLET PO SCH (09:44)
[2022-03-23] MEDS: INSULIN ASPART (NovoLOG) 100 UNIT/ML VIAL SQ SCH ×2 (09:44→13:19)
[2022-03-23] MEDS: CYANOCOBALAMIN 500 MCG TAB PO SCH (09:44)
[2022-03-23] MEDS: TAMSULOSIN 0.4 MG CAP.ER.24H PO SCH (09:44)
[2022-03-23] MEDS: ATORVASTATIN 40 MG TAB PO SCH (09:44)
[2022-03-23] MEDS: LINAGLIPTIN 5 MG TABLET PO SCH (09:47)
[2022-03-23 11:15] LABS: Glucose,Whole Blood 137 mg/dL (70-110)
--- NOTE | 2022-03-24 20:16 | P.DS ---
Providers Date of admission: 03/19/22 12:18 Expected date of discharge: 03/23/22 Attending physician: Ginette Bai MD Consults: 03/19/22 12:18 Consult Physician Routine Consulting Provider: Corbin Nguyen Consult Reason/Comments: ams Do you want consulting provider notified?: Yes Primary care physician: Gamal Stuart [facility] Course: Final diagnosis Altered mental status possible metabolic encephalopathysecondary to acute urinary tract infection Generalized weakness and patient was found on the floor. Hypovolemic hyponatremia, improved Acute urinary tract infection, present on admission with Klebsiella pneumonia secondary to Taylor catheterization Schizoaffective disorder/bipolar/depression Currently some day smoker Hypertension Diabetes type 2 [id number] History of PE in September 2021 currently on Eliquis History of seizure resolved GERD COPD, not in exacerbation DVT prophylaxis patient is already on Eliquis Discharge disposition Patient is being discharged in a stable condition with guarded prognosis to home with home care. Patient will follow-up with Dr. Stuart in the outpatient setting upon discharge. Patient is to continue with cefdinir for UTI for the next 7 days to complete the course. Patient to follow up with [facility] as well. Total time taken is greater than 35 minutes. Hospital course This is a 56-year-old female who was recently admitted with altered mental status and having incontinence and normally straight cathed herself found to have an acute urinary tract infection with Klebsiella pneumonia. Patient showed clinical improvement on ceftriaxone and will continue on Cefdinir. Homecare being arranged as well and strongly encouraged follow-up with primary care provider. patient appears to be high risk for recurrent urinary tract infections given her chronic history of self cathing. Currently no reports of chest pain, shortness of breath, or palpitations. Patient is afebrile. No reports of nausea or vomiting and patient is tolerating diet. Patient will be discharged home today. Guarded prognosis and high risk for readmission due to noncompliance and multiple comorbidities. Physical exam: Gen: This is a 56-year-old female who is awake,, alert and oriented 3, well- developed, well-nourished HEENT: Head is atraumatic, normocephalic. Pupils equal, round. Sclerae is anicteric. NECK: Supple. No JVD. No lymphadenopathy. No thyromegaly. LUNGS: Clear to auscultation. No wheezes or rhonchi. No intercostal retractions. HEART: Regular rate and rhythm. No murmur. ABDOMEN: Soft. Bowel sounds are present. No masses. No tenderness. EXTREMITIES: No pedal edema. No calf tenderness. NEUROLOGICAL: Patient is awake, alert and oriented x3. Cranial nerves 2 through 12 are grossly intact. Please refer to medication reconciliation sheet for a list of medications. The impression and plan of care has been dictated by Gogo Yepez, Nurse Practitioner as directed. Dr. Joie MD I have performed a history and examination and MDM of this patient, discussed the same with the dictator, and agree with the dictator's assessment and plan as written ,documented as a scribe. Based on total visit time, I have performed more than 50% of the visit. Patient Condition at Discharge: Fair Plan - Discharge Summary Discharge Rx Participant: Yes New Discharge Prescriptions: New Cefdinir [Omnicef] 300 mg PO Q12HR 7 Days #14 capsule Cyanocobalamin [Vitamin B-12] 1,000 mcg PO DAILY 30 Days #60 tablet Continue fluPHENAZine decanoate [Prolixin Decanoate] 50 mg IM Q14D cloZAPine [Clozaril] 200 mg PO HS Tamsulosin [Flomax] 0.4 mg PO DAILY Omeprazole 20 mg PO HS Apixaban [Eliquis] 5 mg PO BID Budesonide/Formoterol Fumarate [Symbicort 160-4.5 Mcg Inhaler] 2 puff INHALATION RT-BID Ipratropium/Albuterol Sulfate [Combivent Respimat Inhaler] 1 puff INHALATION RT-QID Atorvastatin [Lipitor] 40 mg PO DAILY Glimepiride [Amaryl] 4 mg PO BID metFORMIN HCL ER [Glucophage XR] 500 mg PO BID sitaGLIPtin [Januvia] 100 mg PO DAILY Cholecalciferol [Vitamin D3 (25 Mcg = 1000 Iu)] 25 mcg PO DAILY fluvoxaMINE MALEATE [Luvox] 100 mg PO HS LORazepam [Ativan] 0.5 mg PO HS Nicotine 21Mg/24Hr Patch [Habitrol] 1 patch TRANSDERM DAILY ondansetron HCL [Zofran] 8 mg PO TID PRN PRN Reason: Nausea Discharge Medication List cloZAPine [Clozaril] 200 mg PO HS 01/21/16 [History] fluPHENAZine decanoate [Prolixin Decanoate] 50 mg IM Q14D 01/21/16 [History] Tamsulosin [Flomax] 0.4 mg PO DAILY 03/13/17 [History] Cholecalciferol [Vitamin D3 (25 Mcg = 1000 Iu)] 25 mcg PO DAILY 07/22/20 [History] Omeprazole 20 mg PO HS 07/22/20 [History] Apixaban [Eliquis] 5 mg PO BID 10/24/20 [History] Budesonide/Formoterol Fumarate [Symbicort 160-4.5 Mcg Inhaler] 2 puff INHALATION RT-BID 10/24/20 [History] Ipratropium/Albuterol Sulfate [Combivent Respimat Inhaler] 1 puff INHALATION RT- QID 10/24/20 [History] fluvoxaMINE MALEATE [Luvox] 100 mg PO HS 10/24/20 [History] Atorvastatin [Lipitor] 40 mg PO DAILY 10/19/21 [History] Glimepiride [Amaryl] 4 mg PO BID 03/19/22 [History] LORazepam [Ativan] 0.5 mg PO HS 03/19/22 [History] Nicotine 21Mg/24Hr Patch [Habitrol] 1 patch TRANSDERM DAILY 03/19/22 [History] metFORMIN HCL ER [Glucophage XR] 500 mg PO BID 03/19/22 [History] ondansetron HCL [Zofran] 8 mg PO TID PRN 03/19/22 [History] sitaGLIPtin [Januvia] 100 mg PO DAILY 03/19/22 [History] Cefdinir [Omnicef] 300 mg PO Q12HR 7 Days #14 capsule 03/23/22 [Rx] Cyanocobalamin [Vitamin B-12] 1,000 mcg PO DAILY 30 Days #60 tablet 03/23/22 [Rx] Follow up Appointment(s)/Referral(s): Fidencio Reyes MD [REFERRING] - 04/14/22 1:00 pm ([facility] Gamal Stuart DO [Primary Care Provider] - 03/30/22 2:30 pm Patient Instructions/Handouts: Hypokalemia (DC), Hypomagnesemia (DC) Activity/Diet/Wound Care/Special Instructions: Activity Limited until follow-up Follow-up with primary care provider on discharge Follow-up with endocrine outpatient Continue taking antibiotics until finished Continue monitoring Accu-Cheks before meals and at bedtime and keep a diary of all readings for primary and endocrine follow-up Continue dysphasia 3 chopped diet consistent carb diabetic Discharge Disposition: HOME SELF-CARE
== END 2022-03-23 14:51 | disposition home or self-care (01) | DRG 640 ==
LOC: EC 09:46 → 5NMEDONC 12:18
PROVIDERS: ADMIT Internal Medicine; ATTEND Internal Medicine
PROC: 4A10X4Z Monitoring of Central Nervous Electrical Activity, External Approach (ICD-10-PCS; principal; 2022-03-21)
DX: E87.1 Hypo-osmolality and hyponatremia (principal); G93.41 Metabolic encephalopathy; N39.0 Urinary tract infection, site not specified; F31.30 Bipolar disorder, current episode depressed, mild or moderate severity, unspecified; F05 Delirium due to known physiological condition; E86.1 Hypovolemia; F25.9 Schizoaffective disorder, unspecified; F31.9 Bipolar disorder, unspecified; I10 Essential (primary) hypertension; K21.9 Gastro-esophageal reflux disease without esophagitis; J44.9 Chronic obstructive pulmonary disease, unspecified; B96.1 Klebsiella pneumoniae [K. pneumoniae] as the cause of diseases classified elsewhere; F17.210 Nicotine dependence, cigarettes, uncomplicated; N31.9 Neuromuscular dysfunction of bladder, unspecified; D64.9 Anemia, unspecified; E11.9 Type 2 diabetes mellitus without complications; E05.90 Thyrotoxicosis, unspecified without thyrotoxic crisis or storm; R00.0 Tachycardia, unspecified; G40.909 Epilepsy, unspecified, not intractable, without status epilepticus; M19.90 Unspecified osteoarthritis, unspecified site; Z79.01 Long term (current) use of anticoagulants; Z79.4 Long term (current) use of insulin; Z79.51 Long term (current) use of inhaled steroids; Z79.84 Long term (current) use of oral hypoglycemic drugs; Z79.899 Other long term (current) drug therapy; Z86.711 Personal history of pulmonary embolism; Z86.010 Personal history of colon polyps; Z87.440 Personal history of urinary (tract) infections; Z88.8 Allergy status to other drugs, medicaments and biological substances; Z87.19 Personal history of other diseases of the digestive system
CPT/HCPCS: 36415; 70450; 71046; 80048; 80053; 80143; 80179; 80306; 80320; 81001; 82140; 82330; 82550; 82607; 82746; 83036; 84439; 84443; 84484; 85025; 85610; 85730; 87040; 87077; 87086; 87186; 93005; 93880; 94640; 94760; 95816; 96360; 96361; 99285

== ENCOUNTER → 2022-06-30 | Outpatient (CLI) | payer MEDICARE, OTHER ==
--- NOTE | 2022-06-30 11:06 | XR ---
EXAMINATION TYPE: XR lumbar spine 2 or 3V DATE OF EXAM: 06/30/2022 CLINICAL HISTORY: Disc degeneration. History of surgery 1988. Low back pain going down bilateral legs . TECHNIQUE: Frontal and lateral images of the lumbar spine are obtained. COMPARISON: MRI lumbar spine 2010 FINDINGS: There are 5 lumbar type vertebral bodies identified. There is slight levoconvex scoliosis centered at L3-L4 level. Vertebral body heights are preserved. There is moderate to severe disc space narrowing with vacuum disc phenomenon along with moderate spurring and endplate sclerosis at L3-L4 l evel. There is grade 1 retrolisthesis L5 on S1. Mild overlying arterial vascular calcification is see n. There is stimulator in the pelvis for the bladder partially imaged. IMPRESSION: As above.
== END | disposition home or self-care (01) ==
LOC: RADXRMAIN 10:22
PROVIDERS: ATTEND Family Medicine
DX: M51.36 Other intervertebral disc degeneration, lumbar region (principal)
CPT/HCPCS: 72100

== ENCOUNTER 2022-11-02 13:18 | Observation (INO) | payer MEDICARE, OTHER ==
--- NOTE | 2022-11-02 14:58 | ED ---
General Adult HPI - General Source: patient, RN notes reviewed Mode of arrival: ambulatory Limitations: no limitations <Damián Soria - Last Filed: 11/02/22 14:57> - History of Present Illness Onset/Timin -: days(s) Location: abdomen Radiation: non-radiation Consistency: intermittent Improves with: none Worsens with: none Associated Symptoms: nausea/vomiting Treatments Prior to Arrival: none <Huy Espinoza - Last Filed: 11/08/22 08:01> - General Chief complaint: Urogenital Stated complaint: UTI Time Seen by Provider: 11/02/22 14:57 - History of Present Illness Initial comments: 48-year-old female presents emergency Department chief complaint of nausea vomiting. Patient states she's been having sweating episodes. Patient states she was diagnosed with UTI was started on amoxicillin. Patient states that she has not felt well. (Damián Soria) This patient is a 56-year-old woman states that she is here because she is having vomiting and lower abdominal discomfort. She states that it is cramping type of pain, intermittent. She has not noted worsening or relieving factors. She had seen her physician about it yesterday and scribed amoxicillin related to urinary tract infection, but has not started the medicine. She states that she does have frequent urinary tract infections, and that she had finished a course of Bactrim prior to this. Patient denies hematemesis. She has had 6 episodes of vomiting over last night and this morning. She has not eaten today. She did have one bowel movement she described as diarrhea. There was no blood or tarry stool. (Huy Espinoza) - Related Data Home Medications Medication Instructions Recorded Confirmed cloZAPine [Clozaril] 200 mg PO HS 01/21/16 11/02/22 fluPHENAZine decanoate [Prolixin 50 mg IM Q14D 01/21/16 11/02/22 Decanoate] Tamsulosin [Flomax] 0.4 mg PO DAILY 03/13/17 11/02/22 Omeprazole 20 mg PO BID PRN 07/22/20 11/02/22 Apixaban [Eliquis] 5 mg PO BID 10/24/20 11/02/22 fluvoxaMINE MALEATE [Luvox] 100 mg PO HS 10/24/20 11/02/22 Atorvastatin [Lipitor] 40 mg PO DAILY 10/19/21 11/02/22 Glimepiride [Amaryl] 4 mg PO BID 03/19/22 11/02/22 Nicotine 21Mg/24Hr Patch [Habitrol] 1 patch TRANSDERM DAILY 03/19/22 11/02/22 metFORMIN HCL ER [Glucophage XR] 500 mg PO BID 03/19/22 11/02/22 sitaGLIPtin [Januvia] 100 mg PO DAILY 03/19/22 11/02/22 Albuterol Inhaler [Ventolin Hfa 2 puff INHALATION RT-Q6H PRN 11/02/22 11/02/22 Inhaler] Ergocalciferol (Vitamin D2) 1,250 mcg PO SA 11/02/22 11/02/22 [Drisdol (50,000 Iu)] Metoprolol Tartrate [Lopressor] 25 mg PO BID 11/02/22 11/02/22 Tiotropium Br/Olodaterol HCl 1 spray INHALATION RT-DAILY PRN 11/02/22 11/02/22 [Stiolto Respimat Inhal [place]] methIMAzole [Tapazole] 5 mg PO DAILY 11/02/22 11/02/22 propylthiouraciL [Propylthiouracil] 50 mg PO DAILY 11/02/22 11/02/22 Previous Rx's Medication Instructions Recorded Amoxic-Pot Clav 500-125 mg 1 tab PO Q12HR 5 Days #10 tab 11/04/22 [Augmentin 500-125 mg] Allergies Allergy/AdvReac Type Severity Reaction Status Date / Time haloperidol [From Haldol] AdvReac Muscles Verified 11/02/22 16:19 freeze up in arms and hands haloperidol lactate AdvReac Muscles Verified 11/02/22 16:19 [From Haldol] freeze up in arms and hands Review of Systems ROS Other: All systems not noted in ROS Statement are negative. <Damián Soria - Last Filed: 11/02/22 14:57> ROS Other: All systems not noted in ROS Statement are negative. Constitutional: Reports: fever. Denies: chills, weakness Respiratory: Denies: cough, dyspnea Cardiovascular: Denies: chest pain, palpitations, edema Gastrointestinal: Reports: abdominal pain, nausea, vomiting, diarrhea. Denies: constipation, hematemesis, melena, hematochezia Genitourinary: Reports: dysuria. Denies: hematuria Musculoskeletal: Denies: back pain Skin: Denies: rash Neurological: Denies: headache, weakness Psychiatric: Reports: anxiety <AlexisHuy - Last Filed: 11/08/22 08:01> ROS Statement: Those systems with pertinent positive or pertinent negative responses have been documented in the HPI. Past Medical History Past Medical History: COPD, Diabetes Mellitus, GERD/Reflux, Hypertension, Osteoarthritis (OA), Pulmonary Embolus (PE), Seizure Disorder Additional Past Medical History / Comment(s): Hx of colon polyps, neuorgenic bladder, anemia, self caths at home, thyroid nodule, UTI with hospital admission september 2021- klebsiella treated with ceftin History of Any Multi-Drug Resistant Organisms: None Reported Past Surgical History: Back Surgery, Breast Surgery, Ear Surgery Additional Past Surgical History / Comment(s): hunter breast reduction, breast biopsy, bladder stimulator implant, skin grafts to ear Past Anesthesia/Blood Transfusion Reactions: No Reported Reaction Past Psychological History: Bipolar, Depression, Schizoaffective Disorder Smoking Status: Current some day smoker Past Alcohol Use History: None Reported Past Drug Use History: None Reported - Past Family History Father Family Medical History: Cancer Additional Family Medical History / Comment(s): lung Sister(s) Family Medical History: Cancer Additional Family Medical History / Comment(s): ovarian <Damián Soria M - Last Filed: 11/02/22 14:57> General Exam Limitations: no limitations <Damián Soria Ignacio - Last Filed: 11/02/22 14:57> General appearance: alert, in no apparent distress Head exam: Present: atraumatic, normocephalic Eye exam: Present: normal appearance. Absent: scleral icterus, conjunctival injection ENT exam: Present: normal oropharynx Neck exam: Present: normal inspection, full ROM Respiratory exam: Present: normal lung sounds bilaterally. Absent: respiratory distress, wheezes, rales, rhonchi, stridor Cardiovascular Exam: Present: regular rate, normal rhythm, normal heart sounds. Absent: systolic murmur, diastolic murmur, rubs, gallop GI/Abdominal exam: Present: soft. Absent: distended, tenderness, guarding, rebound, rigid, mass, pulsatile mass Extremities exam: Present: normal inspection, normal capillary refill. Absent: pedal edema, calf tenderness Back exam: Present: normal inspection. Absent: CVA tenderness (R), CVA tenderness (L) Neurological exam: Present: alert Skin exam: Present: warm, dry, intact, normal color. Absent: rash <Huy Espinoza - Last Filed: 11/08/22 08:01> - General Exam Comments Initial Comments: Visual Physical Exam Vital signs reviewed General: Well-appearing, nontoxic, no acute distress. Head: Normocephalic, atraumatic Eyes: PERRLA, EOMI ENT: Airway patent Chest: Nonlabored breathing Skin: No visual rash, normal skin tone Neuro: Alert and oriented 3 Musculoskeletal: No gross abnormalities (Damián Soria) Course Vital Signs 11/02/22 11/02/22 11/03/22 14:18 20:43 02:00 Temperature 98.3 F Pulse Rate 100 90 98 Pulse Rate [ Pulse Oximetery ] Respiratory 20 16 16 Rate Blood Pressure 112/87 105/76 105/78 Blood Pressure [Right Arm] O2 Sat by Pulse 95 96 94 L Oximetry 11/03/22 07:00 Temperature 98.0 F Pulse Rate Pulse Rate [ 91 Pulse Oximetery ] Respiratory 16 Rate Blood Pressure Blood Pressure 107/70 [Right Arm] O2 Sat by Pulse 93 L Oximetry Medical Decision Making <Damián Soria - Last Filed: 11/02/22 14:57> - Lab Data Result diagrams: 11/04/22 05:48 11/04/22 05:48 <Huy Espinoza - Last Filed: 11/08/22 08:01> - Medical Decision Making I performed the quick note portion of this chart signed Damián Soria PA-C (Damián Soria) This patient is 56-year-old woman who has history of frequent urinary tract infections, here with what she believes is urinary tract infection is also associated with vomiting. She had proximally 6 episodes of vomiting and one episode of diarrhea at home. Patient here continued to have some vomiting despite multiple rounds of medication, and therefore will be admitted to have further hydration and antiemetics. In addition, the patient does have psychiatric history and lives at home alone and family's concern that she does not have sick discharge requirement. Therefore I will have social work consulte d regarding discharge plan. Was pt. sent in by a medical professional or institution (, PA, SUPERVISOR P[employer]ING RO[employer], urgent care, hospital, or alf...) When possible be specific @ -[No] Did you speak to anyone other than the patient for history (EMS, parent, family, police, friend...)? What history was obtained from this source @ -[The patient's mother was at bedside and did contribute history Did you review nursing and triage notes (agree or disagree)? Why? @ -[I reviewed and agree with nursing and triage notes] Were old charts reviewed (outside hosp., previous admission, EMS record, old EKG, old radiological studies, urgent care reports/EKG's, alf records)? Report findings @ -[No old charts were reviewed] Differential Diagnosis (chest pain, altered mental status, abdominal pain women, abdominal pain men, vaginal bleeding, weakness, fever, dyspnea, syncope, headache, dizziness, GI bleed, back pain, seizure, CVA, palpatations, mental health, musculoskeletal)? @ -[Differential Abdominal Pain Women: Appendicitis, Cholecystitis, diverticulosis, ischemic bowel, pancreatitis, hepatitis, UTI, gastroenteritis, AAA, incarcerated hernia, bowel obstruction, constipation, inflammatory bowel, hepatitis, peptic ulcer disease, splenic infarction, perforated viscus, vulvitis, ovarian torsion, PID, kidney stone, placenta abruption, this is not meant to be an all-inclusive list EKG interpreted by me (3pts min.). @ -[As above] X-rays interpreted by me (1pt min.). @ -[None done] CT interpreted by me (1pt min.). @ -[None done] U/S interpreted by me (1pt. min.). @ -[None done] What testing was considered but not performed or refused? (CT, X-rays, U/S, labs)? Why? @ -[None] What meds were considered but not given or refused? Why? @ -[None] Did you discuss the management of the patient with other professionals (professionals i.e. , PA, SUPERVISOR [employer], lab, RT, psych nurse, social science research assistant, ships or barges loader, teacher, tax compliance officer, nurse case management)? Give summary @ -[No] Was smoking cessation discussed for >3mins.? @ -[No] Was critical care preformed (if so, how long)? @ -[No] Were there social determinants of health that impacted care today? How? (Homel essness, low income, unemployed, alcoholism, drug addiction, transportation, low edu. Level, literacy, decrease access to med. care, halfway, rehab)? @ -[No] Was there de-escalation of care discussed even if they declined (Discuss DNR or withdrawal of care, Hospice)? DNR status @ -[No] What co-morbidities impacted this encounter? (DM, HTN, Smoking, COPD, CAD, Cancer, CVA, ARF, Chemo, Hep., AIDS, mental health diagnosis, sleep apnea, morbid obesity)? @ -[Chronic mental health conditions Was patient admitted / discharged? Hospital course, mention meds given and route, prescriptions, significant lab abnormalities, going to OR and other pertinent info. @ -[This patient is a 56-year-old woman here with some mild abdominal pain but the main problem being intractable nausea and vomiting. She was feeling somewhat better with medications however she did continue to have vomiting and did not tolerate oral intake. In light of this patient will be admitted for symptom control. Social work will also be consulted as patient has significant disability related to mental health, and does not appear able to care for self currently Undiagnosed new problem with uncertain prognosis? @ -[No] Drug Therapy requiring intensive monitoring for toxicity (Heparin, Nitro, Insulin, Cardizem)? @ -[No] Were any procedures done? @ -[No] Diagnosis/symptom? @ -Acute intractable vomiting Acute on chronic urinary tract infection Acute, or Chronic, or Acute on Chronic? @ -[default] Uncomplicated (without systemic symptoms) or Complicated (systemic symptoms)? @ -[Uncomplicated Side effects of treatment? @ -[No] Exacerbation, Progression, or Severe Exacerbation? @ -[No] Poses a threat to life or bodily function? How? (Chest pain, [place], [place], pneumonia, PE, COPD, DKA, ARF, appy, cholecystitis, CVA, Diverticulitis, Homicidal, Suicidal, threat to staff... and all critical care pts) @ -[No] (Huy Espinoza) - Lab Data Lab Results 11/02/22 11/02/22 11/02/22 Range/Units 15:39 15:39 15:39 WBC 9.0 (3.8-10.6) k/uL RBC 4.98 (3.80-5.40) m/uL Hgb 14.2 (11.4-16.0) gm/dL Hct 42.5 (34.0-46.0) % MCV 85.4 (80.0-100.0) fL MCH 28.5 (25.0-35.0) pg MCHC 33.4 (31.0-37.0) g/dL RDW 14.5 (11.5-15.5) % Plt Count 141 L (150-450) k/uL MPV 9.6 Neutrophils % 67 % Lymphocytes % 26 % Monocytes % 5 % Eosinophils % 0 % Basophils % 0 % Neutrophils # 6.0 (1.3-7.7) k/uL Lymphocytes # 2.4 (1.0-4.8) k/uL Monocytes # 0.5 (0-1.0) k/uL Eosinophils # 0.0 (0-0.7) k/uL Basophils # 0.0 (0-0.2) k/uL Sodium 138 (137-145) mmol/L Potassium 3.4 L (3.5-5.1) mmol/L Chloride 97 L (98-107) mmol/L Carbon Dioxide 27 (22-30) mmol/L Anion Gap 14 mmol/L BUN 15 (7-17) mg/dL Creatinine 1.10 H (0.52-1.04) mg/dL Est GFR (CKD-EPI)AfAm 64 (>60 ml/min/1.73 sqM) Est GFR (CKD-EPI)NonAf 56 (>60 ml/min/1.73 sqM) Glucose 175 H (74-99) mg/dL Plasma Lactic Acid [place] (0.7-2.0) mmol/L Calcium 7.4 L (8.4-10.2) mg/dL Total Bilirubin 0.7 (0.2-1.3) mg/dL AST 30 (14-36) U/L ALT 23 (4-34) U/L Alkaline Phosphatase 60 (38-126) U/L Total Protein 7.3 (6.3-8.2) g/dL Albumin 4.5 (3.5-5.0) g/dL Urine Color Colorless Urine Appearance Cloudy H (Clear) Urine pH 6.0 (5.0-8.0) Ur Specific [place] 1.005 (1.001-1.035) Urine Protein Negative (Negative) Urine Glucose (UA) Negative (Negative) Urine Ketones Negative (Negative) Urine Blood Trace H (Negative) Urine Nitrite Negative (Negative) Urine Bilirubin Negative (Negative) Urine Urobilinogen <2.0 (<2.0) mg/dL Ur Leukocyte Esterase Large H (Negative) Urine RBC 3 (0-5) /hpf Urine WBC 31 H (0-5) /hpf Ur Squamous Epith Cells 2 (0-4) /hpf Urine Bacteria Moderate H (None) /hpf Urine Mucus Rare H (None) /hpf 11/02/22 Range/Units 15:39 WBC (3.8-10.6) k/uL RBC (3.80-5.40) m/uL Hgb (11.4-16.0) gm/dL Hct (34.0-46.0) % MCV (80.0-100.0) fL MCH (25.0-35.0) pg MCHC (31.0-37.0) g/dL RDW (11.5-15.5) % Plt Count (150-450) k/uL MPV Neutrophils % % Lymphocytes % % Monocytes % % Eosinophils % % Basophils % % Neutrophils # (1.3-7.7) k/uL Lymphocytes # (1.0-4.8) k/uL Monocytes # (0-1.0) k/uL Eosinophils # (0-0.7) k/uL Basophils # (0-0.2) k/uL Sodium (137-145) mmol/L Potassium (3.5-5.1) mmol/L Chloride (98-107) mmol/L Carbon Dioxide (22-30) mmol/L Anion Gap mmol/L BUN (7-17) mg/dL Creatinine (0.52-1.04) mg/dL Est GFR (CKD-EPI)AfAm (>60 ml/min/1.73 sqM) Est GFR (CKD-EPI)NonAf (>60 ml/min/1.73 sqM) Glucose (74-99) mg/dL Plasma Lactic Acid [place] 1.1 (0.7-2.0) mmol/L Calcium (8.4-10.2) mg/dL Total Bilirubin (0.2-1.3) mg/dL AST (14-36) U/L ALT (4-34) U/L Alkaline Phosphatase (38-126) U/L Total Protein (6.3-8.2) g/dL Albumin (3.5-5.0) g/dL Urine Color Urine Appearance (Clear) Urine pH (5.0-8.0) Ur Specific [place] (1.001-1.035) Urine Protein (Negative) Urine Glucose (UA) (Negative) Urine Ketones (Negative) Urine Blood (Negative) Urine Nitrite (Negative) Urine Bilirubin (Negative) Urine Urobilinogen (<2.0) mg/dL Ur Leukocyte Esterase (Negative) Urine RBC (0-5) /hpf Urine WBC (0-5) /hpf Ur Squamous Epith Cells (0-4) /hpf Urine Bacteria (None) /hpf Urine Mucus (None) /hpf Disposition <Damián Soria - Last Filed: 11/02/22 14:57> Is patient prescribed a controlled substance at d/c from ED?: No <Huy Espinoza - Last Filed: 11/08/22 08:01> Clinical Impression: UTI (urinary tract infection), Intractable vomiting with nausea Disposition: ADMITTED IP TO THIS HOSP Condition: Fair
[2022-11-02] MEDS ORDERED: ONDANSETRON 4 MG/2 ML VIAL IVP STA ×2 (15:37→19:47)
[2022-11-02] MEDS ORDERED: SODIUM CHLORIDE 0.9% 1,000 ML IV ONE (15:37)
[2022-11-02 16:00] LABS: Appearance,Urine Cloudy (Clear); Bacteria,Urine Moderate /hpf; Bilirubin,Urine Negative (Negative); Blood,Urine Trace (Negative); Color,Urine Colorless; Glucose,Urine (UA) Negative (Negative); Ketones,Urine Negative (Negative); Leukocyte Esterase,Urine Large (Negative); Mucus,Urine Rare /hpf; Nitrite,Urine Negative (Negative); Protein,Urine Negative (Negative); RBC,Urine 3 /hpf (0-5); Specific Gravity,Urine 1.005 (1.001-1.035); Squamous Epithelial Cell,Urine 2 /hpf (0-4); Urobilinogen,Urine <2.0 mg/dL (<2.0); WBC,Urine 31 /hpf (0-5)
[2022-11-02 16:10] LABS: Basophils % (A) 0 %; Eosinophils % (A) 0 %; HCT 42.5 % (34.0-46.0); HGB 14.2 gm/dL (11.4-16.0); Lymphocytes # (A) 2.4 k/uL (1.0-4.8); Lymphocytes % (A) 26 %; MCH 28.5 pg (25.0-35.0); MCHC 33.4 g/dL (31.0-37.0); MCV 85.4 fL (80.0-100.0); Mean Platelet Volume 9.6; Monocytes # (A) 0.5 k/uL (0-1.0); Monocytes % (A) 5 %; Neutrophils % (A) 67 %; Platelet Count 141 k/uL (150-450); RBC 4.98 m/uL (3.80-5.40); RDW 14.5 % (11.5-15.5)
[2022-11-02 16:11] LABS: ALT 23 U/L (4-34); AST 30 U/L (14-36); African American GFR (CKD) 64 (>60 ml/min/1.73 sqM); Albumin 4.5 g/dL (3.5-5.0); Alkaline Phosphatase 60 U/L (38-126); Anion Gap 14 mmol/L; Blood Urea Nitrogen 15 mg/dL (7-17); Calcium 7.4 mg/dL (8.4-10.2); Carbon Dioxide 27 mmol/L (22-30); Chloride 97 mmol/L (98-107); Glucose 175 mg/dL (74-99); Non-African American GFR(CKD) 56 (>60 ml/min/1.73 sqM); Potassium 3.4 mmol/L (3.5-5.1); Sodium 138 mmol/L (137-145); Total Bilirubin 0.7 mg/dL (0.2-1.3); Total Protein 7.3 g/dL (6.3-8.2)
[2022-11-02] MEDS ORDERED: PROMETHAZINE 25 MG TAB PO PRN (22:42)
[2022-11-02] MEDS ORDERED: NALOXONE 0.4 MG/ML 1 ML VIAL IV PRN (22:42)
[2022-11-02] MEDS ORDERED: PROCHLORPERAZINE SUPPOSITORY 25 MG SUPP RECTAL PRN (22:42)
[2022-11-02] MEDS ORDERED: ACETAMINOPHEN TAB 325 MG TAB PO PRN (22:42)
[2022-11-02] MEDS ORDERED: ONDANSETRON 4 MG/2 ML VIAL IVP PRN (22:42)
[2022-11-02] MEDS ORDERED: PANTOPRAZOLE 40 MG TABLET PO PRN ×2 (22:43→23:19)
[2022-11-02] MEDS ORDERED: ALBUTEROL NEBULIZED 2.5 MG/3 ML INHALATION PRN (22:43)
[2022-11-03] MEDS: FORMOTEROL FUMARATE 20 MCG/2 ML NEBU INHALATION SCH ×2 (08:35→19:44)
[2022-11-03] MEDS: IPRATROPIUM 0.5 MG/2.5 ML NEBU INHALATION SCH ×4 (08:35→19:44)
[2022-11-03] MEDS: TAMSULOSIN 0.4 MG CAP.ER.24H PO SCH (08:48)
[2022-11-03] MEDS: FAMOTIDINE 20 MG TAB PO SCH (08:48)
[2022-11-03] MEDS: METOPROLOL TARTRATE 25 MG TAB PO SCH ×2 (08:48→19:55)
[2022-11-03] MEDS: NICOTINE 21MG/24HR PATCH TRANSDERM SCH (08:49)
[2022-11-03] MEDS: methIMAzole 5 MG TAB PO SCH (08:49)
[2022-11-03] MEDS ORDERED: FAMOTIDINE 20 MG TAB PO SCH (09:00)
[2022-11-03] MEDS: APIXABAN 5 MG TAB PO SCH ×2 (09:26→19:55)
[2022-11-03] MEDS: INSULIN ASPART (NovoLOG) 100 UNIT/ML VIAL SQ SCH ×3 (12:22→20:52)
[2022-11-03] MEDS: metFORMIN 500 MG TAB PO SCH ×2 (12:31→19:55)
--- NOTE | 2022-11-03 14:48 | P.HPIM ---
History of Present Illness H&P Date: 11/03/22 Chief Complaint: Nausea vomiting * 56-year-old lady with past medical history significant for diabetes mellitus, COPD, gastroesophageal reflux, hypertension, history of seizure disorder, pulmonary embolism presented to the emergency department with complaints of nausea, vomiting and abdominal pain * She was recently diagnosed with UTI and was treated with amoxicillin. Upon admission patient also complained of diarrhea. Patient states she was given a prescription from oxygen however she has not started the medication, she continued to have frequent urinary tract infections and previously had completed course of Bactrim * Patient complained of 6 episodes of vomiting before coming to the hospital * Patient denies associated fever, chills REVIEW OF SYSTEMS: CONSTITUTIONAL: No fever, no malaise, no fatigue. HEENT: No recent visual problems or hearing problems. Denied any sore throat. CARDIOVASCULAR: No chest pain, orthopnea, PND, no palpitations, no syncope. PULMONARY: No shortness of breath, no cough, no hemoptysis. GASTROINTESTINAL: Nausea, vomiting, abdominal pain, diarrhea NEUROLOGICAL: No headaches, no weakness, no numbness. HEMATOLOGICAL: Denies any bleeding or petechiae. GENITOURINARY: Denies any burning micturition, frequency, or urgency. MUSCULOSKELETAL/RHEUMATOLOGICAL: Denies any joint pain, swelling, or any muscle pain. ENDOCRINE: Denies any polyuria or polydipsia. The rest of the 14-point review of systems is negative. PHYSICAL EXAMINATION: GENERAL: The patient is alert and oriented x3, not in any acute distress. Well developed, well nourished. HEENT: Pupils are round and equally reacting to light. EOMI. No scleral icterus. No conjunctival pallor. Normocephalic, atraumatic. No pharyngeal erythema. No th yromegaly. CARDIOVASCULAR: S1 and S2 present. No murmurs, rubs, or gallops. PULMONARY: Chest is clear to auscultation, no wheezing or crackles. ABDOMEN: Soft, nontender, nondistended, normoactive bowel sounds. No palpable organomegaly. MUSCULOSKELETAL: No joint swelling or deformity. EXTREMITIES: No cyanosis, clubbing, or pedal edema. NEUROLOGICAL: Gross neurological examination did not reveal any focal deficits. SKIN: No rashes. Past Medical History Past Medical History: COPD, Diabetes Mellitus, GERD/Reflux, Hypertension, Osteoarthritis (OA), Pulmonary Embolus (PE), Seizure Disorder Additional Past Medical History / Comment(s): Hx of colon polyps, neuorgenic bladder, anemia, self caths at home, thyroid nodule, UTI with hospital admission september 2021- klebsiella treated with ceftin History of Any Multi-Drug Resistant Organisms: None Reported Past Surgical History: Back Surgery, Breast Surgery, Ear Surgery Additional Past Surgical History / Comment(s): hunter breast reduction, breast biopsy, bladder stimulator implant, skin grafts to ear Past Anesthesia/Blood Transfusion Reactions: No Reported Reaction Past Psychological History: Bipolar, Depression, Schizoaffective Disorder Smoking Status: Current some day smoker Past Alcohol Use History: None Reported Past Drug Use History: None Reported - Past Family History Father Family Medical History: Cancer Additional Family Medical History / Comment(s): lung Sister(s) Family Medical History: Cancer Additional Family Medical History / Comment(s): ovarian Medications and Allergies Home Medications Medication Instructions Recorded Confirmed Type cloZAPine [Clozaril] 200 mg PO HS 01/21/16 11/02/22 History fluPHENAZine decanoate [Prolixin 50 mg IM Q14D 01/21/16 11/02/22 History Decanoate] Tamsulosin [Flomax] 0.4 mg PO DAILY 03/13/17 11/02/22 History Omeprazole 20 mg PO BID PRN 07/22/20 11/02/22 History Apixaban [Eliquis] 5 mg PO BID 10/24/20 11/02/22 History fluvoxaMINE MALEATE [Luvox] 100 mg PO HS 10/24/20 11/02/22 History Atorvastatin [Lipitor] 40 mg PO DAILY 10/19/21 11/02/22 History Glimepiride [Amaryl] 4 mg PO BID 03/19/22 11/02/22 History Nicotine 21Mg/24Hr Patch [Habitrol] 1 patch TRANSDERM DAILY 03/19/22 11/02/22 History metFORMIN HCL ER [Glucophage XR] 500 mg PO BID 03/19/22 11/02/22 History sitaGLIPtin [Januvia] 100 mg PO DAILY 03/19/22 11/02/22 History Albuterol Inhaler [Ventolin Hfa 2 puff INHALATION RT-Q6H PRN 11/02/22 11/02/22 History Inhaler] Amoxic-Pot Clav 500-125 mg 1 tab PO Q12HR 11/02/22 11/02/22 History [Augmentin 500-125 mg] Ergocalciferol (Vitamin D2) 1,250 mcg PO SA 11/02/22 11/02/22 History [Drisdol (50,000 Iu)] Metoprolol Tartrate [Lopressor] 25 mg PO BID 11/02/22 11/02/22 History Tiotropium Br/Olodaterol HCl 1 spray INHALATION RT-DAILY PRN 11/02/22 11/02/22 History [Stiolto Respimat Inhal [place]] methIMAzole [Tapazole] 5 mg PO DAILY 11/02/22 11/02/22 History propylthiouraciL [Propylthiouracil] 50 mg PO DAILY 11/02/22 11/02/22 History Allergies Allergy/AdvReac Type Severity Reaction Status Date / Time haloperidol [From Haldol] AdvReac Muscles Verified 11/02/22 16:19 freeze up in arms and hands haloperidol lactate AdvReac Muscles Verified 11/02/22 16:19 [From Haldol] freeze up in arms and hands Physical Exam Vitals: Vital Signs Temp Pulse Pulse Resp BP BP Pulse Ox 11/03/22 13:51 98.2 F 85 16 89/50 93 L 11/03/22 11:49 90 11/03/22 09:03 92 11/03/22 08:48 94 11/03/22 08:47 94 11/03/22 08:39 88 11/03/22 07:44 75 20 140/89 98 11/03/22 07:00 98.0 F 91 16 107/70 93 L 11/03/22 02:00 98 16 105/78 94 L 11/02/22 20:43 90 16 105/76 96 Intake and Output 11/02/22 11/03/22 11/03/22 22:59 06:59 14:59 Intake Total 118 Balance 118 Intake: Oral 118 Other: # Voids 2 Results CBC & Chem 7: 11/02/22 15:39 11/02/22 15:39 Labs: Abnormal Lab Results - Last 24 Hours (Table) 11/02/22 11/02/22 11/02/22 Range/Units 15:39 15:39 15:39 Plt Count 141 L (150-450) k/uL Potassium 3.4 L (3.5-5.1) mmol/L Chloride 97 L (98-107) mmol/L Creatinine 1.10 H (0.52-1.04) mg/dL Glucose 175 H (74-99) mg/dL Calcium 7.4 L (8.4-10.2) mg/dL Urine Appearance Cloudy H (Clear) Urine Blood Trace H (Negative) Ur Leukocyte Esterase Large H (Negative) Urine WBC 31 H (0-5) /hpf Urine Bacteria Moderate H (None) /hpf Urine Mucus Rare H (None) /hpf Assessment and Plan Assessment: Assessment and plan Urinary tract infection Acute gastritis Diarrhea rule out infectious etiology History of COPD Diabetes mellitus type 2 Hypokalemia * In regards to urinary tract infection continue patient on IV Rocephin, follow up on urine cultures * In regards to gastritis continue patient on Protonix, as needed Zofran, advance diet to full liquid * In regards to diarrhea continue to monitor for frequency if excessive we'll check for C. diff, stool cultures ordered * In regards to diabetes mellitus Accu-Cheks before meals at bedtime continue patient on correctional insulin and metformin * CODE STATUS is full code
[2022-11-03 15:36] LABS: Glucose,Whole Blood 175 mg/dL (70-110)
[2022-11-03 16:25] LABS: HGB 12.5 d/dL (12.0-15.0); MCH 27.7 pg (27.0-32.0); MCHC 32.9 d/dL (32.0-37.0); MCV 84.1 FL (80.0-97.0); Mean Platelet Volume 12.1 FL (9.5-12.2); NRBC Per 100 WBC 0 X 10*3/uL (0.00-0.01); Platelet Count 143 X 10*3/uL (140-440); RBC 4.52 X 10*6/uL (4.10-5.20); RDW 14.4 % (11.5-14.5); WBC 7.12 X 10*3/uL (4.50-10.00)
[2022-11-03] MEDS: SODIUM CHLORIDE 0.9% 1,000 ML IV SCH ×2 (16:27→21:59)
[2022-11-03] MEDS: POTASSIUM CHLORIDE 10 MEQ in WATER FOR INJECTION 1 100ML.BAG IVPB SCH ×2 (16:27→18:58)
[2022-11-03 17:25] LABS: Glucose,Whole Blood 143 mg/dL (70-110)
[2022-11-03 20:51] LABS: Glucose,Whole Blood 187 mg/dL (70-110)
[2022-11-03] MEDS ORDERED: cloZAPine 100 MG TAB PO SCH (21:00)
[2022-11-04 05:58] LABS: Glucose,Whole Blood 160 mg/dL (70-110)
[2022-11-04] MEDS: INSULIN ASPART (NovoLOG) 100 UNIT/ML VIAL SQ SCH (06:06)
[2022-11-04 08:07] VITALS: BP 105/71; RESP 18; TEMP 98.2
[2022-11-04] MEDS: FORMOTEROL FUMARATE 20 MCG/2 ML NEBU INHALATION SCH (08:11)
[2022-11-04] MEDS: IPRATROPIUM 0.5 MG/2.5 ML NEBU INHALATION SCH (08:12)
[2022-11-04 08:31] VITALS: PULSE 80
[2022-11-04 08:46] LABS: HCT 41.3 % (37.2-46.3); HGB 13.3 d/dL (12.0-15.0); MCH 27.4 pg (27.0-32.0); MCHC 32.2 d/dL (32.0-37.0); MCV 85.2 FL (80.0-97.0); Mean Platelet Volume 12.3 FL (9.5-12.2); NRBC Per 100 WBC 0 X 10*3/uL (0.00-0.01); Platelet Count 164 X 10*3/uL (140-440); RBC 4.85 X 10*6/uL (4.10-5.20); RDW 14.3 % (11.5-14.5); WBC 9.31 X 10*3/uL (4.50-10.00)
[2022-11-04] MEDS: NICOTINE 21MG/24HR PATCH TRANSDERM SCH (09:21)
[2022-11-04] MEDS: METOPROLOL TARTRATE 25 MG TAB PO SCH (09:21)
[2022-11-04 09:22] LABS: BUN/Creat Ratio 8.33 Ratio (12.00-20.00); C Reactive Protein <0.30 mg/dL (0.00-0.80); Calcium 6.6 mg/dL (8.7-10.3); Chloride 102 mmol/L (96-109); Glucose 174 mg/dL (70-110); Potassium 3.8 mmol/L (3.5-5.5); Sodium 143 mmol/L (135-145)
[2022-11-04] MEDS: TAMSULOSIN 0.4 MG CAP.ER.24H PO SCH (09:22)
[2022-11-04] MEDS: FAMOTIDINE 20 MG TAB PO SCH (09:22)
[2022-11-04] MEDS: metFORMIN 500 MG TAB PO SCH (09:22)
[2022-11-04] MEDS: APIXABAN 5 MG TAB PO SCH (09:22)
[2022-11-04] MEDS: methIMAzole 5 MG TAB PO SCH (09:22)
--- NOTE | 2022-11-04 10:51 | P.DS ---
Providers Date of admission: 11/02/22 22:42 Expected date of discharge: 11/04/22 Attending physician: Chepe Crouch MD Primary care physician: [facility] Course: * 56-year-old lady with past medical history significant for diabetes mellitus, COPD, gastroesophageal reflux, hypertension, history of seizure disorder, pulmonary embolism presented to the emergency department with complaints of nausea, vomiting and abdominal pain * She was recently diagnosed with UTI and was treated with amoxicillin. Upon admission patient also complained of diarrhea. Patient states she was given a prescription from oxygen however she has not started the medication, she continued to have frequent urinary tract infections and previously had completed course of Bactrim * Patient complained of 6 episodes of vomiting before coming to the hospital * Patient denies associated fever, chills * Patient stool frequency improved was able to tolerate diet without difficulty * She will started on IV Rocephin with significant improvement * Follow-up blood work was reviewed which remained stable since patient discharged home PHYSICAL EXAMINATION: GENERAL: The patient is alert and oriented x3, not in any acute distress. Well developed, well nourished. HEENT: Pupils are round and equally reacting to light. EOMI. No scleral icterus. No conjunctival pallor. Normocephalic, atraumatic. No pharyngeal erythema. No thyromegaly. CARDIOVASCULAR: S1 and S2 present. No murmurs, rubs, or gallops. PULMONARY: Chest is clear to auscultation, no wheezing or crackles. ABDOMEN: Soft, nontender, nondistended, normoactive bowel sounds. No palpable organomegaly. MUSCULOSKELETAL: No joint swelling or deformity. EXTREMITIES: No cyanosis, clubbing, or pedal edema. NEUROLOGICAL: Gross neurological examination did not reveal any focal deficits. SKIN: No rashes. Assessment: Urinary tract infection Acute gastritis Diarrhea rule out infectious etiology History of COPD Diabetes mellitus type 2 Hypokalemia * In regards to urinary tract infection continue patient on IV Rocephin, transition to oral Augmentin which is already prescribed by PCP * In regards to gastritis and tinea omeprazole upon discharge * In regards to diarrhea, improved stool C. diff not checked since did not have significant frequency * In regards to diabetes mellitus , and tinea home regimen Patient Condition at Discharge: Fair Plan - Discharge Summary Discharge Rx Participant: Yes New Discharge Prescriptions: Continue fluPHENAZine decanoate [Prolixin Decanoate] 50 mg IM Q14D cloZAPine [Clozaril] 200 mg PO HS Tamsulosin [Flomax] 0.4 mg PO DAILY Omeprazole 20 mg PO BID PRN PRN Reason: GERDS Apixaban [Eliquis] 5 mg PO BID Atorvastatin [Lipitor] 40 mg PO DAILY Glimepiride [Amaryl] 4 mg PO BID metFORMIN HCL ER [Glucophage XR] 500 mg PO BID sitaGLIPtin [Januvia] 100 mg PO DAILY Ergocalciferol (Vitamin D2) [Drisdol (50,000 Iu)] 1,250 mcg PO SA methIMAzole [Tapazole] 5 mg PO DAILY Metoprolol Tartrate [Lopressor] 25 mg PO BID propylthiouraciL [Propylthiouracil] 50 mg PO DAILY fluvoxaMINE MALEATE [Luvox] 100 mg PO HS Nicotine 21Mg/24Hr Patch [Habitrol] 1 patch TRANSDERM DAILY Albuterol Inhaler [Ventolin Hfa Inhaler] 2 puff INHALATION RT-Q6H PRN PRN Reason: Shortness Of Breath Amoxic-Pot Clav 500-125 mg [Augmentin 500-125 mg] 1 tab PO Q12HR Tiotropium Br/Olodaterol HCl [Stiolto Respimat Inhal [place]] 1 spray INHALATION RT-DAILY PRN PRN Reason: Shortness Of Breath Discharge Medication List cloZAPine [Clozaril] 200 mg PO HS 01/21/16 [History] fluPHENAZine decanoate [Prolixin Decanoate] 50 mg IM Q14D 01/21/16 [History] Tamsulosin [Flomax] 0.4 mg PO DAILY 03/13/17 [History] Omeprazole 20 mg PO BID PRN 07/22/20 [History] Apixaban [Eliquis] 5 mg PO BID 10/24/20 [History] fluvoxaMINE MALEATE [Luvox] 100 mg PO HS 10/24/20 [History] Atorvastatin [Lipitor] 40 mg PO DAILY 10/19/21 [History] Glimepiride [Amaryl] 4 mg PO BID 03/19/22 [History] Nicotine 21Mg/24Hr Patch [Habitrol] 1 patch TRANSDERM DAILY 03/19/22 [History] metFORMIN HCL ER [Glucophage XR] 500 mg PO BID 03/19/22 [History] sitaGLIPtin [Januvia] 100 mg PO DAILY 03/19/22 [History] Albuterol Inhaler [Ventolin Hfa Inhaler] 2 puff INHALATION RT-Q6H PRN 11/02/22 [History] Amoxic-Pot Clav 500-125 mg [Augmentin 500-125 mg] 1 tab PO Q12HR 11/02/22 [History] Ergocalciferol (Vitamin D2) [Drisdol (50,000 Iu)] 1,250 mcg PO SA 11/02/22 [History] Metoprolol Tartrate [Lopressor] 25 mg PO BID 11/02/22 [History] Tiotropium Br/Olodaterol HCl [Stiolto Respimat Inhal [place]] 1 spray INHALATION RT-DAILY PRN 11/02/22 [History] methIMAzole [Tapazole] 5 mg PO DAILY 11/02/22 [History] propylthiouraciL [Propylthiouracil] 50 mg PO DAILY 11/02/22 [History] Follow up Appointment(s)/Referral(s): Gamal Stuart, [Primary Care Provider] - 1-2 days Activity/Diet/Wound Care/Special Instructions: Continue with regular diet post discharge Follow-up with PCP post discharge Complete your prescription for antibiotic already provided by a PCP Discharge/Stand Alone Forms: Who Do I Call?, Adult Foster Assisted List, Help In The Home, Personal Data Security Coordinator
== END 2022-11-04 11:47 | disposition home or self-care (01) ==
LOC: EC 13:18 → 6NMEDSUR 22:42
PROVIDERS: ADMIT Internal Medicine; ATTEND Internal Medicine
DX: N39.0 Urinary tract infection, site not specified (principal); K29.00 Acute gastritis without bleeding; E87.6 Hypokalemia; R19.7 Diarrhea, unspecified; E11.9 Type 2 diabetes mellitus without complications; J44.9 Chronic obstructive pulmonary disease, unspecified; I10 Essential (primary) hypertension; E04.1 Nontoxic single thyroid nodule; N31.0 Uninhibited neuropathic bladder, not elsewhere classified; G40.909 Epilepsy, unspecified, not intractable, without status epilepticus; K21.9 Gastro-esophageal reflux disease without esophagitis; M19.90 Unspecified osteoarthritis, unspecified site; F25.9 Schizoaffective disorder, unspecified; F31.9 Bipolar disorder, unspecified; Z79.01 Long term (current) use of anticoagulants; Z79.84 Long term (current) use of oral hypoglycemic drugs; Z79.899 Other long term (current) drug therapy; Z88.8 Allergy status to other drugs, medicaments and biological substances; Z87.440 Personal history of urinary (tract) infections; Z86.711 Personal history of pulmonary embolism; Z86.010 Personal history of colon polyps; Z98.890 Other specified postprocedural states; Z80.1 Family history of malignant neoplasm of trachea, bronchus and lung; Z80.41 Family history of malignant neoplasm of ovary
CPT/HCPCS: 96366; 96367; 96376; 96361; 96365; 96375; 99284; 36415; 94640 ×3; 80053; 80048; 83605; 85025; 85027 ×2; 86140; 81001; 87086; 87045; 87077; 87186; 87046; G0378 ×3; S4990 ×2; J2405; J0696 ×3; S0136; J3480

== ENCOUNTER 2022-11-08 10:58 | Emergency (ER) | payer MEDICARE, OTHER ==
[2022-11-08 11:29] VITALS: RESP 16
--- NOTE | 2022-11-08 11:31 | ED ---
Female Urogenital HPI - General Chief complaint: Urogenital Stated complaint: UTI Time Seen by Provider: 11/08/22 11:30 Source: patient, RN notes reviewed Mode of arrival: ambulatory Limitations: no limitations - History of Present Illness Initial comments: 56 year-old female presents emergency Department requesting straight cath. Patient states she is unable to go she states that she's having urinary retention.patient states she has a stimulator patient states occasionally she needs to have a catheter. Patient states she was recent hospital for UTI denies any current symptoms denies fevers or chills no flank pain. - Related Data Home Medications Medication Instructions Recorded Confirmed cloZAPine [Clozaril] 200 mg PO HS 01/21/16 11/02/22 fluPHENAZine decanoate [Prolixin 50 mg IM Q14D 01/21/16 11/02/22 Decanoate] Tamsulosin [Flomax] 0.4 mg PO DAILY 03/13/17 11/02/22 Omeprazole 20 mg PO BID PRN 07/22/20 11/02/22 Apixaban [Eliquis] 5 mg PO BID 10/24/20 11/02/22 fluvoxaMINE MALEATE [Luvox] 100 mg PO HS 10/24/20 11/02/22 Atorvastatin [Lipitor] 40 mg PO DAILY 10/19/21 11/02/22 Glimepiride [Amaryl] 4 mg PO BID 03/19/22 11/02/22 Nicotine 21Mg/24Hr Patch [Habitrol] 1 patch TRANSDERM DAILY 03/19/22 11/02/22 metFORMIN HCL ER [Glucophage XR] 500 mg PO BID 03/19/22 11/02/22 sitaGLIPtin [Januvia] 100 mg PO DAILY 03/19/22 11/02/22 Albuterol Inhaler [Ventolin Hfa 2 puff INHALATION RT-Q6H PRN 11/02/22 11/02/22 Inhaler] Ergocalciferol (Vitamin D2) 1,250 mcg PO SA 11/02/22 11/02/22 [Drisdol (50,000 Iu)] Metoprolol Tartrate [Lopressor] 25 mg PO BID 11/02/22 11/02/22 Tiotropium Br/Olodaterol HCl 1 spray INHALATION RT-DAILY PRN 11/02/22 11/02/22 [Stiolto Respimat Inhal [place]] methIMAzole [Tapazole] 5 mg PO DAILY 11/02/22 11/02/22 propylthiouraciL [Propylthiouracil] 50 mg PO DAILY 11/02/22 11/02/22 Previous Rx's Medication Instructions Recorded Amoxic-Pot Clav 500-125 mg 1 tab PO Q12HR 5 Days #10 tab 11/04/22 [Augmentin 500-125 mg] Allergies Allergy/AdvReac Type Severity Reaction Status Date / Time haloperidol [From Haldol] AdvReac Muscles Verified 11/08/22 11:28 freeze up in arms and hands haloperidol lactate AdvReac Muscles Verified 11/08/22 11:28 [From Haldol] freeze up in arms and hands Review of Systems ROS Statement: Those systems with pertinent positive or pertinent negative responses have been documented in the HPI. ROS Other: All systems not noted in ROS Statement are negative. Past Medical History Past Medical History: COPD, Diabetes Mellitus, GERD/Reflux, Hypertension, Osteoarthritis (OA), Pulmonary Embolus (PE), Seizure Disorder Additional Past Medical History / Comment(s): Hx of colon polyps, neuorgenic bladder, anemia, self caths at home, thyroid nodule, UTI with hospital admission september 2021- klebsiella treated with ceftin History of Any Multi-Drug Resistant Organisms: None Reported Past Surgical History: Back Surgery, Breast Surgery, Ear Surgery Additional Past Surgical History / Comment(s): hunter breast reduction, breast biopsy, bladder stimulator implant, skin grafts to ear Past Anesthesia/Blood Transfusion Reactions: No Reported Reaction Past Psychological History: Bipolar, Depression, Schizoaffective Disorder Smoking Status: Current some day smoker Past Alcohol Use History: None Reported Past Drug Use History: None Reported - Past Family History Father Family Medical History: Cancer Additional Family Medical History / Comment(s): lung Sister(s) Family Medical History: Cancer Additional Family Medical History / Comment(s): ovarian General Exam Limitations: no limitations General appearance: alert, in no apparent distress Head exam: Present: atraumatic, normocephalic, normal inspection Eye exam: Present: normal appearance, PERRL, EOMI. Absent: scleral icterus, conjunctival injection, periorbital swelling ENT exam: Present: normal exam, normal oropharynx, mucous membranes moist Neck exam: Present: normal inspection, full ROM. Absent: tenderness, menin gismus, lymphadenopathy Respiratory exam: Present: normal lung sounds bilaterally. Absent: respiratory distress, wheezes, rales, rhonchi, stridor Cardiovascular Exam: Present: regular rate, normal rhythm, normal heart sounds. Absent: systolic murmur, diastolic murmur, rubs, gallop, clicks GI/Abdominal exam: Present: soft, normal bowel sounds. Absent: distended, tenderness, guarding, rebound, rigid Back exam: Absent: CVA tenderness (R), CVA tenderness (L) Course Vital Signs 11/08/22 11:25 Temperature 98.4 F Pulse Rate 100 Respiratory 16 Rate Blood Pressure 110/71 O2 Sat by Pulse 96 Oximetry Medical Decision Making - Medical Decision Making Was pt. sent in by a medical professional or institution (, PA, LEARNING AND DEVELOPMENT ANALYST, urgent care, hospital, or shelter...) When possible be specific @ -[No] Did you speak to anyone other than the patient for history (EMS, parent, family, police, friend...)? What history was obtained from this source @ -[No] Did you review nursing and triage notes (agree or disagree)? Why? @ -[I reviewed and agree with nursing and triage notes] Were old charts reviewed (outside hosp., previous admission, EMS record, old EKG, old radiological studies, urgent care reports/EKG's, shelter records)? Report findings @ -[No old charts were reviewed] Differential Diagnosis (chest pain, altered mental status, abdominal pain women, abdominal pain men, vaginal bleeding, weakness, fever, dyspnea, syncope, headache, dizziness, GI bleed, back pain, seizure, CVA, palpatations, mental health, musculoskeletal)? @ -[not applicable] EKG interpreted by me (3pts min.). @ -[As above] X-rays interpreted by me (1pt min.). @ -[None done] CT interpreted by me (1pt min.). @ -[None done] U/S interpreted by me (1pt. min.). @ -[None done] What testing was considered but not performed or refused? (CT, X-rays, U/S, labs)? Why? @ -[None] What meds were considered but not given or refused? Why? @ -[None] Did you discuss the management of the patient with other professionals (professionals i.e. , PA, LEARNING AND DEVELOPMENT ANALYST, lab, RT, psych nurse, social work therapist, perl developer, teacher, child support case officer, special education case manager)? Give summary @ -[No] Was smoking cessation discussed for >3mins.? @ -[No] Was critical care preformed (if so, how long)? @ -[No] Were there social determinants of health that impacted care today? How? (Homelessness, low income, unemployed, alcoholism, drug addiction, transportation, low edu. Level, literacy, decrease access to med. care, [facility], rehab)? @ -[No] Was there de-escalation of care discussed even if they declined (Discuss DNR or withdrawal of care, Hospice)? DNR status @ -[No] What co-morbidities impacted this encounter? (DM, HTN, Smoking, COPD, CAD, Cancer, CVA, ARF, Chemo, Hep., AIDS, mental health diagnosis, sleep apnea, morbid obesity)? @ -[None] Was patient admitted / discharged? Hospital course, mention meds given and route, prescriptions, significant lab abnormalities, going to OR and other pertinent info. @ -[discharge patient did have some urinary retention this is an ongoing chronic issue for patient. Patient does not have evidence UTI patient disc harged in stable condition.] Undiagnosed new problem with uncertain prognosis? @ -[No] Drug Therapy requiring intensive monitoring for toxicity (Heparin, Nitro, Insulin, Cardizem)? @ -[No] Were any procedures done? @ -[No] Diagnosis/symptom? @ -[urinary retention] Acute, or Chronic, or Acute on Chronic? @ -[acute on chronic] Uncomplicated (without systemic symptoms) or Complicated (systemic symptoms)? @ -[uncomplicated Side effects of treatment? @ -[No] Exacerbation, Progression, or Severe Exacerbation? @ -[No] Poses a threat to life or bodily function? How? (Chest pain, [place], [place], pneumonia, PE, COPD, DKA, ARF, appy, cholecystitis, CVA, Diverticulitis, Homicidal, Suicid al, threat to staff... and all critical care pts) @ -[No] - Lab Data Lab Results 11/08/22 Range/Units 12:26 Urine Color Colorless Urine Appearance Clear (Clear) Urine pH 5.5 (5.0-8.0) Ur Specific [place] 1.003 (1.001-1.035) Urine Protein Negative (Negative) Urine Glucose (UA) Negative (Negative) Urine Ketones Negative (Negative) Urine Blood Negative (Negative) Urine Nitrite Negative (Negative) Urine Bilirubin Negative (Negative) Urine Urobilinogen <2.0 (<2.0) mg/dL Ur Leukocyte Esterase Negative (Negative) Disposition Clinical Impression: Urinary retention Disposition: HOME SELF-CARE Condition: Stable Instructions (If sedation given, give patient instructions): Acute Urinary Retention in Women (ED) Additional Instructions: Please return to the Emergency Department if symptoms worsen or any other concerns. Is patient prescribed a controlled substance at d/c from ED?: No Referrals: Gamal Stuart DO [Primary Care Provider] - 1-2 days Mathew Mancera MD [STAFF PHYSICIAN] - 1-2 days Time of Disposition: 12:59
[2022-11-08 12:41] LABS: Appearance,Urine Clear (Clear); Bilirubin,Urine Negative (Negative); Blood,Urine Negative (Negative); Color,Urine Colorless; Glucose,Urine (UA) Negative (Negative); Ketones,Urine Negative (Negative); Leukocyte Esterase,Urine Negative (Negative); Nitrite,Urine Negative (Negative); PH, Urine 5.5 (5.0-8.0); Protein,Urine Negative (Negative); Specific Gravity,Urine 1.003 (1.001-1.035); Urobilinogen,Urine <2.0 mg/dL (<2.0)
[2022-11-08 13:16] VITALS: BP 116/80; PULSE 92; TEMP 97.9
== END 2022-11-08 13:16 | disposition home or self-care (01) ==
LOC: EC 10:58
DX: R33.9 Retention of urine, unspecified (principal); J44.9 Chronic obstructive pulmonary disease, unspecified; E11.9 Type 2 diabetes mellitus without complications; K21.9 Gastro-esophageal reflux disease without esophagitis; I10 Essential (primary) hypertension; M19.90 Unspecified osteoarthritis, unspecified site; F31.9 Bipolar disorder, unspecified; F17.200 Nicotine dependence, unspecified, uncomplicated; Z88.8 Allergy status to other drugs, medicaments and biological substances; Z79.899 Other long term (current) drug therapy; Z79.01 Long term (current) use of anticoagulants; Z79.84 Long term (current) use of oral hypoglycemic drugs
CPT/HCPCS: 51798; 81003; 99284

== ENCOUNTER 2022-11-30 02:19 | Emergency (ER) | payer MEDICARE, OTHER ==
[2022-11-30 02:31] VITALS: RESP 18; TEMP 98.2
[2022-11-30] MEDS ORDERED: SODIUM CHLORIDE 0.9% 1,000 ML IV ONE (02:33)
[2022-11-30] MEDS ORDERED: ONDANSETRON 4 MG/2 ML VIAL IVP STA (02:35)
[2022-11-30 02:53] LABS: Basophils % (A) 0 %; Eosinophils # (A) 0.1 k/uL (0-0.7); Eosinophils % (A) 1 %; HGB 13.9 gm/dL (11.4-16.0); Lymphocytes # (A) 0.9 k/uL (1.0-4.8); Lymphocytes % (A) 7 %; MCH 30.3 pg (25.0-35.0); MCHC 34.8 g/dL (31.0-37.0); MCV 87.1 fL (80.0-100.0); Mean Platelet Volume 9.2; Monocytes # (A) 0.4 k/uL (0-1.0); Monocytes % (A) 3 %; Neutrophils # (A) 11.5 k/uL (1.3-7.7); Neutrophils % (A) 89 %; Platelet Count 146 k/uL (150-450); RBC 4.59 m/uL (3.80-5.40); RDW 14.9 % (11.5-15.5); WBC 12.9 k/uL (3.8-10.6)
[2022-11-30 03:01] LABS: ALT 31 U/L (4-34); AST 32 U/L (14-36); African American GFR (CKD) 61 (>60 ml/min/1.73 sqM); Albumin 4.4 g/dL (3.5-5.0); Alkaline Phosphatase 47 U/L (38-126); Anion Gap 21 mmol/L; Blood Urea Nitrogen 17 mg/dL (7-17); Calcium 6.8 mg/dL (8.4-10.2); Carbon Dioxide 24 mmol/L (22-30); Chloride 92 mmol/L (98-107); Glucose 330 mg/dL (74-99); Non-African American GFR(CKD) 53 (>60 ml/min/1.73 sqM); Potassium 3.2 mmol/L (3.5-5.1); Sodium 137 mmol/L (137-145); Total Bilirubin 0.8 mg/dL (0.2-1.3); Total Protein 6.8 g/dL (6.3-8.2)
[2022-11-30] MEDS ORDERED: POTASSIUM BICARBONATE/CIT AC 20 MEQ TABLET.EFF PO ONE (03:10)
--- NOTE | 2022-11-30 03:10 | ED ---
General Adult HPI - General Chief complaint: ENT Stated complaint: Sinus infection Time Seen by Provider: 11/30/22 02:20 Source: patient Mode of arrival: EMS Limitations: no limitations - History of Present Illness Initial comments: Veronique gill is a 48-year-old female presents the ER today for evaluation of nausea and vomiting. Patient reports she has not been feeling well for couple day she saw her primary care yesterday she was diagnosed with a UTI and advised she likely has a sinus infection as her sister was recently just getting over a sinus infection. Patient was prescribed Keflex she started those antibiotics she reports that they upset her stomach somewhat but she is been able to take them. She does report she's had a couple days of intermittent vomiting and is vomiting up a lot of mucus she attributes to nasal drainage. Patient came to the ER today because of the vomiting. - Related Data Home Medications Medication Instructions Recorded Confirmed cloZAPine [Clozaril] 200 mg PO HS 01/21/16 11/02/22 fluPHENAZine decanoate [Prolixin 50 mg IM Q14D 01/21/16 11/02/22 Decanoate] Tamsulosin [Flomax] 0.4 mg PO DAILY 03/13/17 11/02/22 Omeprazole 20 mg PO BID PRN 07/22/20 11/02/22 Apixaban [Eliquis] 5 mg PO BID 10/24/20 11/02/22 fluvoxaMINE MALEATE [Luvox] 100 mg PO HS 10/24/20 11/02/22 Atorvastatin [Lipitor] 40 mg PO DAILY 10/19/21 11/02/22 Glimepiride [Amaryl] 4 mg PO BID 03/19/22 11/02/22 Nicotine 21Mg/24Hr Patch [Habitrol] 1 patch TRANSDERM DAILY 03/19/22 11/02/22 metFORMIN HCL ER [Glucophage XR] 500 mg PO BID 03/19/22 11/02/22 sitaGLIPtin [Januvia] 100 mg PO DAILY 03/19/22 11/02/22 Albuterol Inhaler [Ventolin Hfa 2 puff INHALATION RT-Q6H PRN 11/02/22 11/02/22 Inhaler] Ergocalciferol (Vitamin D2) 1,250 mcg PO SA 11/02/22 11/02/22 [Drisdol (50,000 Iu)] Metoprolol Tartrate [Lopressor] 25 mg PO BID 11/02/22 11/02/22 Tiotropium Br/Olodaterol HCl 1 spray INHALATION RT-DAILY PRN 11/02/22 11/02/22 [Stiolto Respimat Inhal [place]] methIMAzole [Tapazole] 5 mg PO DAILY 11/02/22 11/02/22 propylthiouraciL [Propylthiouracil] 50 mg PO DAILY 11/02/22 11/02/22 Previous Rx's Medication Instructions Recorded Amoxic-Pot Clav 500-125 mg 1 tab PO Q12HR 5 Days #10 tab 11/04/22 [Augmentin 500-125 mg] Ondansetron Odt [Zofran Odt] 4 mg PO Q8HR PRN #12 tab 11/30/22 Allergies Allergy/AdvReac Type Severity Reaction Status Date / Time haloperidol [From Haldol] AdvReac Muscles Verified 11/21/22 16:30 freeze up in arms and hands haloperidol lactate AdvReac Muscles Verified 11/21/22 16:30 [From Haldol] freeze up in arms and hands Review of Systems ROS Statement: Those systems with pertinent positive or pertinent negative responses have been documented in the HPI. ROS Other: All systems not noted in ROS Statement are negative. Past Medical History Past Medical History: COPD, Diabetes Mellitus, GERD/Reflux, Hypertension, Osteoarthritis (OA), Pulmonary Embolus (PE), Seizure Disorder Additional Past Medical History / Comment(s): Hx of colon polyps, neuorgenic bladder, anemia, self caths at home, thyroid nodule, UTI with hospital admission september 2021- klebsiella treated with ceftin History of Any Multi-Drug Resistant Organisms: None Reported Past Surgical History: Back Surgery, Breast Surgery, Ear Surgery Additional Past Surgical History / Comment(s): hunter breast reduction, breast biopsy, bladder stimulator implant, skin grafts to ear Past Anesthesia/Blood Transfusion Reactions: No Reported Reaction Past Psychological History: Bipolar, Depression, Schizoaffective Disorder Smoking Status: Current some day smoker Past Alcohol Use History: None Reported Past Drug Use History: None Reported - Past Family History Father Family Medical History: Cancer Additional Family Medical History / Comment(s): lung Sister(s) Family Medical History: Cancer Additional Family Medical History / Comment(s): ovarian General Exam - General Exam Comments Initial Comments: Physical Exam GENERAL: Patient is well-developed and well-nourished. Patient is nontoxic and well-hydrated and is in no distress. HENT: Normocephalic, Atraumatic. EYES: PERRL, EOMI PULMONARY: Unlabored respirations. CARDIOVASCULAR: RRR Warm and well perfused extremities ABDOMEN: Non-distended Mild tenderness in the suprapubic area SKIN: No rashes or bruising : Deferred NEUROLOGIC: Alert and oriented MUSCULOSKELETAL: Moving all extremities with no apparent injury PSYCHIATRIC: No SI/HI Limitations: no limitations Course Vital Signs 11/30/22 11/30/22 02:26 03:31 Temperature 98.2 F Pulse Rate 112 H 114 H Respiratory 18 18 Rate Blood Pressure 137/85 148/82 O2 Sat by Pulse 93 L 95 Oximetry Medical Decision Making - Medical Decision Making Was pt. sent in by a medical professional or institution (, PA, UX SPECIALIST, urgent care, hospital, or long-term...) When possible be specific @ -No Did you speak to anyone other than the patient for history (EMS, parent, family, police, friend...)? What history was obtained from this source @ -EMS Did you review nursing and triage notes (agree or disagree)? Why? @ -I reviewed and agree with nursing and triage notes Were old charts reviewed (outside hosp., previous admission, EMS record, old EKG, old radiological studies, urgent care reports/EKG's, long-term records)? Report findings @ -Previous visit notes reviewed Differential Diagnosis (chest pain, altered mental status, abdominal pain women, abdominal pain men, vaginal bleeding, weakness, fever, dyspnea, syncope, headache, dizziness, GI bleed, back pain, seizure, CVA, palpatations, mental health, musculoskeletal)? @ - Differential Abdominal Pain Women: Appendicitis, Cholecystitis, diverticulosis, ischemic bowel, pancreatitis, hepatitis, UTI, gastroenteritis, AAA, incarcerated hernia, bowel obstruction, constipation, inflammatory bowel, hepatitis, peptic ulcer disease, splenic infarction, perforated viscus, vulvitis, ovarian torsion, PID, kidney stone, placenta abruption, this is not meant to be an all-inclusive list EKG interpreted by me (3pts min.). @ -As above X-rays interpreted by me (1pt min.). @ -None done CT interpreted by me (1pt min.). @ -None done U/S interpreted by me (1pt. min.). @ -None done What testing was considered but not performed or refused? (CT, X-rays, U/S, labs)? Why? @ -None What meds were considered but not given or refused? Why? @ -None Did you discuss the management of the patient with other professionals (professionals i.e. , PA, UX SPECIALIST, lab, RT, psych nurse, social service director, sweet potato disintegrator, te acher, financial administration officer, casework specialist)? Give summary @ -No Was smoking cessation discussed for >3mins.? @ -No Was critical care preformed (if so, how long)? @ -No Were there social determinants of health that impacted care today? How? (Homelessness, low income, unemployed, alcoholism, drug addiction, transportation, low edu. Level, literacy, decrease access to med. care, penitentiary, rehab)? @ -No Was there de-escalation of care discussed even if they declined (Discuss DNR or withdrawal of care, Hospice)? DNR status @ -No What co-morbidities impacted this encounter? (DM, HTN, Smoking, COPD, CAD, Cancer, CVA, ARF, Chemo, Hep., AIDS, mental health diagnosis, sleep apnea, morbid obesity)? @ -None Was patient admitted / discharged? Hospital course, mention meds given and rou te, prescriptions, significant lab abnormalities, going to OR and other pertinent info. @ -Discharge Undiagnosed new problem with uncertain prognosis? @ -No Drug Therapy requiring intensive monitoring for toxicity (Heparin, Nitro, Insulin, Cardizem)? @ -No Were any procedures done? @ -No Diagnosis/symptom? @ -Nausea and vomiting, hypokalemia Acute, or Chronic, or Acute on Chronic? @ -default Uncomplicated (without systemic symptoms) or Complicated (systemic symptoms)? @ -default Side effects of treatment? @ -No Exacerbation, Progression, or Severe Exacerbation? @ -No Poses a threat to life or bodily function? How? (Chest pain, [place], [place], pneumonia, PE, COPD, DKA, ARF, appy, cholecystitis, CVA, Diverticulitis, Homicidal, Suicidal, threat to staff... and all critical care pts) @ -No - Lab Data Result diagrams: 11/30/22 02:42 11/30/22 02:42 Lab Results 11/30/22 11/30/22 Range/Units 02:42 02:42 WBC 12.9 H (3.8-10.6) k/uL RBC 4.59 (3.80-5.40) m/uL Hgb 13.9 (11.4-16.0) gm/dL Hct 40.0 (34.0-46.0) % MCV 87.1 (80.0-100.0) fL MCH 30.3 (25.0-35.0) pg MCHC 34.8 (31.0-37.0) g/dL RDW 14.9 (11.5-15.5) % Plt Count 146 L (150-450) k/uL MPV 9.2 Neutrophils % 89 % Lymphocytes % 7 % Monocytes % 3 % Eosinophils % 1 % Basophils % 0 % Neutrophils # 11.5 H (1.3-7.7) k/uL Lymphocytes # 0.9 L (1.0-4.8) k/uL Monocytes # 0.4 (0-1.0) k/uL Eosinophils # 0.1 (0-0.7) k/uL Basophils # 0.0 (0-0.2) k/uL Sodium 137 (137-145) mmol/L Potassium 3.2 L (3.5-5.1) mmol/L Chloride 92 L (98-107) mmol/L Carbon Dioxide 24 (22-30) mmol/L Anion Gap 21 mmol/L BUN 17 (7-17) mg/dL Creatinine 1.15 H (0.52-1.04) mg/dL Est GFR (CKD-EPI)AfAm 61 (>60 ml/min/1.73 sqM) Est GFR (CKD-EPI)NonAf 53 (>60 ml/min/1.73 sqM) Glucose 330 H (74-99) mg/dL Calcium 6.8 L (8.4-10.2) mg/dL Total Bilirubin 0.8 (0.2-1.3) mg/dL AST 32 (14-36) U/L ALT 31 (4-34) U/L Alkaline Phosphatase 47 (38-126) U/L Total Protein 6.8 (6.3-8.2) g/dL Albumin 4.4 (3.5-5.0) g/dL Disposition Clinical Impression: Nausea and vomiting, Hypokalemia, UTI (urinary tract infection) Disposition: HOME SELF-CARE Condition: Stable Prescriptions: Ondansetron Odt [Zofran Odt] 4 mg PO Q8HR PRN #12 tab PRN Reason: Nausea Is patient prescribed a controlled substance at d/c from ED?: No Referrals: Gamal Stuart DO [Primary Care Provider] - 1-2 days
[2022-11-30] MEDS ORDERED: ONDANSETRON 4 MG ODT STARTER PACK 2 TAB BTL PO STA (03:20)
[2022-11-30 03:33] VITALS: BP 148/82; PULSE 114
== END 2022-11-30 04:32 | disposition home or self-care (01) ==
LOC: EC 02:19
DX: N39.0 Urinary tract infection, site not specified (principal); E87.6 Hypokalemia; E11.9 Type 2 diabetes mellitus without complications; I10 Essential (primary) hypertension; J44.9 Chronic obstructive pulmonary disease, unspecified; K21.9 Gastro-esophageal reflux disease without esophagitis; G40.909 Epilepsy, unspecified, not intractable, without status epilepticus; M19.90 Unspecified osteoarthritis, unspecified site; F17.200 Nicotine dependence, unspecified, uncomplicated; Z79.01 Long term (current) use of anticoagulants; Z79.84 Long term (current) use of oral hypoglycemic drugs; Z79.899 Other long term (current) drug therapy; Z88.8 Allergy status to other drugs, medicaments and biological substances; Z86.711 Personal history of pulmonary embolism
CPT/HCPCS: 36415; 80053; 85025; 99284; 96374; 96361; J2405; S0119

== ENCOUNTER 2022-11-30 16:46 | Inpatient (IN) | payer MEDICARE, OTHER ==
--- NOTE | 2022-11-30 17:22 | ED ---
Altered Mental Status HPI - General Chief Complaint: Altered Mental Status Stated Complaint: AMS Time Seen by Provider: 11/30/22 16:53 Source: patient, EMS Mode of arrival: ambulatory Limitations: altered mental status - History of Present Illness Initial Comments: This patient is 56-year-old woman who reportedly has psychiatric history, brought by ambulance to have evaluation because she has had worsening of her psychiatric symptoms. The patient's mother reportedly called EMS because the daughter was not making sense. She was hallucinating and discussing delusional thoughts. On EMS arrival, she was noted to be very anxious and when they placed her on the monitor they found heart rate in the 150s. The patient is not able to give any additional history as she does appear to be actively psychotic. She does apologize for making trouble. MD Complaint: confusion Onset/Timin -: days(s) Severity: severe - Related Data Home Medications Medication Instructions Recorded Confirmed cloZAPine [Clozaril] 200 mg PO HS 01/21/16 11/30/22 fluPHENAZine decanoate [Prolixin 50 mg IM Q14D 01/21/16 11/30/22 Decanoate] Tamsulosin [Flomax] 0.4 mg PO DAILY 03/13/17 11/30/22 Omeprazole 20 mg PO BID PRN 07/22/20 11/30/22 Apixaban [Eliquis] 5 mg PO BID 10/24/20 11/30/22 fluvoxaMINE MALEATE [Luvox] 100 mg PO HS 10/24/20 11/30/22 Atorvastatin [Lipitor] 40 mg PO DAILY 10/19/21 11/30/22 Glimepiride [Amaryl] 4 mg PO BID 03/19/22 11/30/22 Nicotine 21Mg/24Hr Patch [Habitrol] 1 patch TRANSDERM DAILY 03/19/22 11/30/22 metFORMIN HCL ER [Glucophage XR] 500 mg PO BID 03/19/22 11/30/22 sitaGLIPtin [Januvia] 100 mg PO DAILY 03/19/22 11/30/22 Albuterol Inhaler [Ventolin Hfa 2 puff INHALATION RT-Q6H PRN 11/02/22 11/30/22 Inhaler] Ergocalciferol (Vitamin D2) 1,250 mcg PO SA 11/02/22 11/30/22 [Drisdol (50,000 Iu)] Metoprolol Tartrate [Lopressor] 25 mg PO BID 11/02/22 11/30/22 Tiotropium Br/Olodaterol HCl 1 spray INHALATION RT-DAILY PRN 11/02/22 11/30/22 [Stiolto Respimat Inhal [place]] methIMAzole [Tapazole] 5 mg PO DAILY 11/02/22 11/30/22 propylthiouraciL [Propylthiouracil] 50 mg PO DAILY 11/02/22 11/30/22 Sulfamethox-Tmp 800-160Mg [Bactrim 1 tab PO DIRECTED 11/30/22 11/30/22 DS 800-160 mg] Previous Rx's Medication Instructions Recorded Ondansetron Odt [Zofran Odt] 4 mg PO Q8HR PRN #12 tab 11/30/22 Allergies Allergy/AdvReac Type Severity Reaction Status Date / Time haloperidol [From Haldol] AdvReac Muscles Verified 11/30/22 18:33 freeze up in arms and hands haloperidol lactate AdvReac Muscles Verified 11/30/22 18:33 [From Haldol] freeze up in arms and hands Review of Systems ROS Statement: Those systems with pertinent positive or pertinent negative responses have been documented in the HPI. ROS Other: All systems not noted in ROS Statement are negative. Respiratory: Denies: dyspnea Cardiovascular: Denies: chest pain Past Medical History Past Medical History: COPD, Diabetes Mellitus, GERD/Reflux, Hypertension, Osteoarthritis (OA), Pulmonary Embolus (PE), Seizure Disorder Additional Past Medical History / Comment(s): Hx of colon polyps, neuorgenic bladder, anemia, self caths at home, thyroid nodule, UTI with hospital admission september 2021- klebsiella treated with ceftin History of Any Multi-Drug Resistant Organisms: None Reported Past Surgical History: Back Surgery, Breast Surgery, Ear Surgery Additional Past Surgical History / Comment(s): hunter breast reduction, breast bio psy, bladder stimulator implant, skin grafts to ear Past Anesthesia/Blood Transfusion Reactions: No Reported Reaction Past Psychological History: Bipolar, Depression, Schizoaffective Disorder Smoking Status: Current some day smoker Past Alcohol Use History: None Reported Past Drug Use History: None Reported - Past Family History Father Family Medical History: Cancer Additional Family Medical History / Comment(s): lung Sister(s) Family Medical History: Cancer Additional Family Medical History / Comment(s): ovarian General Exam Limitations: no limitations General appearance: alert, anxious Head exam: Present: normocephalic, other (There is an abrasion to the right periorbital area and small contusion to left forehead. No bony tenderness) Eye exam: Present: normal appearance, EOMI. Absent: scleral icterus, conjun ctival injection ENT exam: Present: mucous membranes dry Neck exam: Present: normal inspection, full ROM. Absent: meningismus Respiratory exam: Present: normal lung sounds bilaterally. Absent: respiratory distress, wheezes, rales, rhonchi, stridor, accessory muscle use Cardiovascular Exam: Present: normal rhythm, tachycardia, normal heart sounds. Absent: systolic murmur, diastolic murmur, rubs, gallop GI/Abdominal exam: Present: soft. Absent: distended, tenderness, guarding, rebound, rigid, mass Extremities exam: Present: normal inspection, normal capillary refill. Absent: pedal edema, calf tenderness Back exam: Present: normal inspection. Absent: CVA tenderness (R), CVA tenderness (L) Neurological exam: Present: alert, other (Patient is not able to follow multiple step commands. She does not have a focal motor or sensory deficit.). Absent: oriented X3 Psychiatric exam: Present: other (Patient responding to internal stimuli and expressing delusional thought content) Skin exam: Present: warm, dry, intact, normal color. Absent: rash Course Vital Signs 11/30/22 11/30/22 11/30/22 16:55 18:04 20:00 Temperature 98.6 F Pulse Rate 160 H 120 H 98 Respiratory 18 18 20 Rate Blood Pressure 143/105 121/82 115/82 O2 Sat by Pulse 86 L 97 97 Oximetry 11/30/22 11/30/22 12/01/22 21:00 23:00 00:00 Temperature Pulse Rate 105 H 102 H 96 Respiratory 20 20 18 Rate Blood Pressure 117/82 102/71 117/74 O2 Sat by Pulse 97 95 96 Oximetry 12/01/22 12/01/22 12/01/22 01:00 02:00 03:00 Temperature Pulse Rate 100 99 99 Respiratory 20 20 18 Rate Blood Pressure 110/73 111/69 113/68 O2 Sat by Pulse 96 99 95 Oximetry 12/01/22 12/01/22 06:00 08:43 Temperature 98.8 F Pulse Rate 97 97 Respiratory 18 18 Rate Blood Pressure 100/63 120/87 O2 Sat by Pulse 99 96 Oximetry Medical Decision Making - Medical Decision Making This patient's 56-year-old woman here for vomiting and altered mental status. She did have a generalized tonic-clonic seizure shortly after arrival received Ativan. The patient on arrival is tachycardic, moderately hypertensive, borderline temperature. Given the reported history of hyperthyroidism, the patient is started on esmolol drip for possible thyroid storm. The patient blood pressure seemed to begin to respond to the Ativan, and her labs did not reveal elevated T for or TSH, therefore the has multiple drip is stopped. The patient did become somewhat more lucid after the Ativan. She'll be admitted for altered mental status, intractable vomiting, and multiple electrolyte abnormalities. The patient had chest x-ray which I interpreted as negative for acute infiltrate, pneumothorax, congestive heart failure The patient had CT of the brain which I interpreted as negative for acute bony injury or intracranial hemorrhage The patient had computed tomography scan of the abdomen pelvis which does not re veal evidence of free air or obstruction Was pt. sent in by a medical professional or institution (, PA, HOT PRESS OPERATOR, urgent care, hospital, or detention...) When possible be specific @ -[No] Did you speak to anyone other than the patient for history (EMS, parent, family, police, friend...)? What history was obtained from this source @ -[EMS gave most of the history due to what appears to be acute delirium Did you review nursing and triage notes (agree or disagree)? Why? @ -[I reviewed and agree with nursing and triage notes] Were old charts reviewed (outside hosp., previous admission, EMS record, old EKG, old radiological studies, urgent care reports/EKG's, detention records)? Report findings @ -[Yes, old charts were reviewed] Differential Diagnosis (chest pain, altered mental status, abdominal pain women, abdominal pain men, vaginal bleeding, weakness, fever, dyspnea, syncope, headache, dizziness, GI bleed, back pain, seizure, CVA, palpatations, mental health, musculoskeletal)? @ -[Differential Altered Mental Status: Hypoglycemia, DKA, hypercapnia, ETOH, overdose, CO poisoning, trauma, myxedema coma, HTN encephalopathy, infection, encephalitis, psychosis, intercranial hemorrhage, hepatic encephalopathy, meningitis, CVA, this is not meant to be an all-inclusive list EKG interpreted by me (3pts min.). @ -[I interpreted As above] X-rays interpreted by me (1pt min.). @ -[I interpreted as above CT interpreted by me (1pt min.). @ -[I interpreted as above U/S interpreted by me (1pt. min.). @ -[None done] What testing was considered but not performed or refused? (CT, X-rays, U/S, labs)? Why? @ -[None] What meds were considered but not given or refused? Why? @ -[None] Did you discuss the management of the patient with other professionals (professionals i.e. , PA, HOT PRESS OPERATOR, lab, RT, psych nurse, director of social services, construction tech, teacher, president and chief commercial officer, medical case worker)? Give summary @ -[Case discussed with the admitting physician. Treatment recommendations are incorporated Was smoking cessation discussed for >3mins.? @ -[No] Was critical care preformed (if so, how long)? @ -Yes, 35 minutes Were there social determinants of health that impacted care today? How? (Homelessness, low income, unemployed, alcoholism, drug addiction, t ransportation, low edu. Level, literacy, decrease access to med. care, nursing home, rehab)? @ -[No] Was there de-escalation of care discussed even if they declined (Discuss DNR or withdrawal of care, Hospice)? DNR status @ -[No] What co-morbidities impacted this encounter? (DM, HTN, Smoking, COPD, CAD, Cancer, CVA, ARF, Chemo, Hep., AIDS, mental health diagnosis, sleep apnea, morbid obesity)? @ -[None] Was patient admitted / discharged? Hospital course, mention meds given and route, prescriptions, significant lab abnormalities, going to OR and other pertinent info. @ -[See above, patient be admitted with consultations (nephrology, psychiatry). Fluid and electrolyte replacement started Undiagnosed new problem with uncertain prognosis? @ -[No] Drug Therapy requiring intensive monitoring for toxicity (Heparin, Nitro, Insulin, Cardizem)? @ -[No] Were any procedures done? @ -[No] Diagnosis/symptom? @ -[Acute kidney injury Acute hypomagnesemia Acute hypokalemia Intractable nausea and vomiting Acute urinary tract infection Acute delirium. acute generalized tonic-clonic seizure Acute, or Chronic, or Acute on Chronic? @ -[Acute Uncomplicated (without systemic symptoms) or Complicated (systemic symptoms)? @ -[Complicated by acute delirium Side effects of treatment? @ -[No] Exacerbation, Progression, or Severe Exacerbation? @ -[No] Poses a threat to life or bodily function? How? (Chest pain, [place], [place], pneumonia, PE, COPD, DKA, ARF, appy, cholecystitis, CVA, Diverticulitis, Homicidal, Suicidal, threat to staff... and all critical care pts) @ -[Yes, untreated electrolyte abnormality may lead to cardiac arrhythmia. - Lab Data Result diagrams: 12/04/22 10:47 12/05/22 11:24 Lab Results 11/30/22 11/30/22 11/30/22 Range/Units 17:51 17:51 17:51 WBC 18.6 H (3.8-10.6) k/uL RBC 4.51 (3.80-5.40) m/uL Hgb 13.1 (11.4-16.0) gm/dL Hct 39.6 (34.0-46.0) % MCV 87.7 (80.0-100.0) fL MCH 29.0 (25.0-35.0) pg MCHC 33.0 (31.0-37.0) g/dL RDW 15.0 (11.5-15.5) % Plt Count 176 (150-450) k/uL MPV 9.7 Neutrophils % 91 % Lymphocytes % 4 % Monocytes % 4 % Eosinophils % 0 % Basophils % 0 % Neutrophils # 16.9 H (1.3-7.7) k/uL Lymphocytes # 0.8 L (1.0-4.8) k/uL Monocytes # 0.8 (0-1.0) k/uL Eosinophils # 0.0 (0-0.7) k/uL Basophils # 0.0 (0-0.2) k/uL PT 14.2 H (9.0-12.0) sec INR 1.4 H (<1.2) APTT 23.6 (22.0-30.0) sec Sodium 136 L (137-145) mmol/L Potassium 2.6 L* (3.5-5.1) mmol/L Chloride 88 L (98-107) mmol/L Carbon Dioxide 19 L (22-30) mmol/L Anion Gap 29 mmol/L BUN 24 H (7-17) mg/dL Creatinine 1.88 H (0.52-1.04) mg/dL Est GFR (CKD-EPI)AfAm 34 (>60 ml/min/1.73 sqM) Est GFR (CKD-EPI)NonAf 29 (>60 ml/min/1.73 sqM) Glucose 416 H (74-99) mg/dL Calcium 6.1 L* (8.4-10.2) mg/dL Magnesium <0.4 L* (1.6-2.3) mg/dL Total Bilirubin 0.6 (0.2-1.3) mg/dL AST 37 H (14-36) U/L ALT 45 H (4-34) U/L Alkaline Phosphatase 51 (38-126) U/L Troponin I (0.000-0.034) ng/mL Total Protein 6.8 (6.3-8.2) g/dL Albumin 4.5 (3.5-5.0) g/dL TSH 3.540 (0.465-4.680) mIU/L Free T4 1.79 (0.78-2.19) ng/dL Free T3 pg/mL (2.30-4.20) pg/mL Urine Color Urine Appearance (Clear) Urine pH (5.0-8.0) Ur Specific [place] (1.001-1.035) Urine Protein (Negative) Urine Glucose (UA) (Negative) Urine Ketones (Negative) Urine Blood (Negative) Urine Nitrite (Negative) Urine Bilirubin (Negative) Urine Urobilinogen (<2.0) mg/dL Ur Leukocyte Esterase (Negative) Urine RBC (0-5) /hpf Urine WBC (0-5) /hpf Ur Squamous Epith Cells (0-4) /hpf Urine Bacteria (None) /hpf Urine Mucus (None) /hpf Coronavirus (PCR) (Not Detectd) 11/30/22 11/30/22 11/30/22 Range/Units 17:51 17:51 17:51 WBC (3.8-10.6) k/uL RBC (3.80-5.40) m/uL Hgb (11.4-16.0) gm/dL Hct (34.0-46.0) % MCV (80.0-100.0) fL MCH (25.0-35.0) pg MCHC (31.0-37.0) g/dL RDW (11.5-15.5) % Plt Count (150-450) k/uL MPV Neutrophils % % Lymphocytes % % Monocytes % % Eosinophils % % Basophils % % Neutrophils # (1.3-7.7) k/uL Lymphocytes # (1.0-4.8) k/uL Monocytes # (0-1.0) k/uL Eosinophils # (0-0.7) k/uL Basophils # (0-0.2) k/uL PT (9.0-12.0) sec INR (<1.2) APTT (22.0-30.0) sec Sodium (137-145) mmol/L Potassium (3.5-5.1) mmol/L Chloride (98-107) mmol/L Carbon Dioxide (22-30) mmol/L Anion Gap mmol/L BUN (7-17) mg/dL Creatinine (0.52-1.04) mg/dL Est GFR (CKD-EPI)AfAm (>60 ml/min/1.73 sqM) Est GFR (CKD-EPI)NonAf (>60 ml/min/1.73 sqM) Glucose (74-99) mg/dL Calcium (8.4-10.2) mg/dL Magnesium (1.6-2.3) mg/dL Total Bilirubin (0.2-1.3) mg/dL AST (14-36) U/L ALT (4-34) U/L Alkaline Phosphatase (38-126) U/L Troponin I 0.031 (0.000-0.034) ng/mL Total Protein (6.3-8.2) g/dL Albumin (3.5-5.0) g/dL TSH (0.465-4.680) mIU/L Free T4 (0.78-2.19) ng/dL Free T3 pg/mL 3.60 (2.30-4.20) pg/mL Urine Color Yellow Urine Appearance Cloudy H (Clear) Urine pH 6.0 (5.0-8.0) Ur Specific [place] 1.018 (1.001-1.035) Urine Protein 3+ H (Negative) Urine Glucose (UA) Trace H (Negative) Urine Ketones Trace H (Negative) Urine Blood Large H (Negative) Urine Nitrite Negative (Negative) Urine Bilirubin Negative (Negative) Urine Urobilinogen <2.0 (<2.0) mg/dL Ur Leukocyte Esterase Large H (Negative) Urine RBC 25 H (0-5) /hpf Urine WBC 68 H (0-5) /hpf Ur Squamous Epith Cells 20 H (0-4) /hpf Urine Bacteria Many H (None) /hpf Urine Mucus Few H (None) /hpf Coronavirus (PCR) (Not Detectd) 11/30/22 Range/Units 22:28 WBC (3.8-10.6) k/uL RBC (3.80-5.40) m/uL Hgb (11.4-16.0) gm/dL Hct (34.0-46.0) % MCV (80.0-100.0) fL MCH (25.0-35.0) pg MCHC (31.0-37.0) g/dL RDW (11.5-15.5) % Plt Count (150-450) k/uL MPV Neutrophils % % Lymphocytes % % Monocytes % % Eosinophils % % Basophils % % Neutrophils # (1.3-7.7) k/uL Lymphocytes # (1.0-4.8) k/uL Monocytes # (0-1.0) k/uL Eosinophils # (0-0.7) k/uL Basophils # (0-0.2) k/uL PT (9.0-12.0) sec INR (<1.2) APTT (22.0-30.0) sec Sodium (137-145) mmol/L Potassium (3.5-5.1) mmol/L Chloride (98-107) mmol/L Carbon Dioxide (22-30) mmol/L Anion Gap mmol/L BUN (7-17) mg/dL Creatinine (0.52-1.04) mg/dL Est GFR (CKD-EPI)AfAm (>60 ml/min/1.73 sqM) Est GFR (CKD-EPI)NonAf (>60 ml/min/1.73 sqM) Glucose (74-99) mg/dL Calcium (8.4-10.2) mg/dL Magnesium (1.6-2.3) mg/dL Total Bilirubin (0.2-1.3) mg/dL AST (14-36) U/L ALT (4-34) U/L Alkaline Phosphatase (38-126) U/L Troponin I (0.000-0.034) ng/mL Total Protein (6.3-8.2) g/dL Albumin (3.5-5.0) g/dL TSH (0.465-4.680) mIU/L Free T4 (0.78-2.19) ng/dL Free T3 pg/mL (2.30-4.20) pg/mL Urine Color Urine Appearance (Clear) Urine pH (5.0-8.0) Ur Specific [place] (1.001-1.035) Urine Protein (Negative) Urine Glucose (UA) (Negative) Urine Ketones (Negative) Urine Blood (Negative) Urine Nitrite (Negative) Urine Bilirubin (Negative) Urine Urobilinogen (<2.0) mg/dL Ur Leukocyte Esterase (Negative) Urine RBC (0-5) /hpf Urine WBC (0-5) /hpf Ur Squamous Epith Cells (0-4) /hpf Urine Bacteria (None) /hpf Urine Mucus (None) /hpf Coronavirus (PCR) Not Detected (Not Detectd) - EKG Data EKG shows normal: sinus rhythm, axis (Normal), intervals (Normal), ST-T waves (Possible anterior and inferior ischemia) Rate: tachycardia (Rate 157) Disposition Clinical Impression: Hypomagnesemia, Hypocalcemia, Hypokalemia, Altered mental status, UTI (urinary tract infection), Intractable vomiting with nausea Disposition: ADMITTED IP TO THIS HOSP Condition: Fair Is patient prescribed a controlled substance at d/c from ED?: No
[2022-11-30] MEDS ORDERED: LORazepam 2 MG/ML INJ IV STA (17:30)
[2022-11-30] MEDS ORDERED: ESMOLOL DRIP BOLUS FROM BAG 1 MCG SOLN IV PRN (17:38)
[2022-11-30] MEDS ORDERED: ESMOLOL IN SODIUM CHLORIDE PMX 2.5 GM in SALINE 1 250ML.BAG IV SCH (17:45)
--- NOTE | 2022-11-30 17:57 | CT ---
EXAMINATION TYPE: CT brain wo con CT DLP: 1183.4 mGycm, Automated exposure control for dose reduction was used. DATE OF EXAM: 11/30/2022 5:47 PM COMPARISON: Prior CT Brain from 03/19/2022. CLINICAL INDICATION:Female, 56 years old with history of altered mental status, altered mental status . vomiting TECHNIQUE: Brain: Multiple axial CT images of the brain were obtained without IV contrast. Coronal and sagittal reformats reviewed. FINDINGS: Brain: Extra-axial spaces: No abnormal extra-axial fluid collections. Ventricular system: Within normal limits Cerebral parenchyma: Cerebral atrophy. No acute intraparenchymal hemorrhage or mass effect. The ramirez -white junction is well differentiated. Scattered hypoattenuating areas are seen within the white mat ter. Cerebellum: Unremarkable. Mass effect: No evidence of midline shift. Intracranial vasculature: unremarkable Soft tissues: Normal. Calvarium/osseous structures: No depressed skull fracture. Paranasal sinuses and mastoid air cells: Mild scattered paranasal sinus disease. Visualized orbits: Orbital contents are intact. IMPRESSION: 1. No acute intracranial process. 2. Nonspecific white matter changes, likely secondary to chronic small vessel ischemic disease.
[2022-11-30 18:18] LABS: Basophils % (A) 0 %; Eosinophils % (A) 0 %; HCT 39.6 % (34.0-46.0); HGB 13.1 gm/dL (11.4-16.0); Lymphocytes # (A) 0.8 k/uL (1.0-4.8); Lymphocytes % (A) 4 %; MCV 87.7 fL (80.0-100.0); Mean Platelet Volume 9.7; Monocytes # (A) 0.8 k/uL (0-1.0); Monocytes % (A) 4 %; Neutrophils # (A) 16.9 k/uL (1.3-7.7); Neutrophils % (A) 91 %; Platelet Count 176 k/uL (150-450); RBC 4.51 m/uL (3.80-5.40); WBC 18.6 k/uL (3.8-10.6)
[2022-11-30 18:22] LABS: AST 37 U/L (14-36); African American GFR (CKD) 34 (>60 ml/min/1.73 sqM); Albumin 4.5 g/dL (3.5-5.0); Alkaline Phosphatase 51 U/L (38-126); Anion Gap 29 mmol/L; Blood Urea Nitrogen 24 mg/dL (7-17); Carbon Dioxide 19 mmol/L (22-30); Chloride 88 mmol/L (98-107); Glucose 416 mg/dL (74-99); INR 1.4 (<1.2); Non-African American GFR(CKD) 29 (>60 ml/min/1.73 sqM); Partial Thromboplastin Time 23.6 sec (22.0-30.0); Prothrombin Time 14.2 sec (9.0-12.0); Sodium 136 mmol/L (137-145); Total Bilirubin 0.6 mg/dL (0.2-1.3); Total Protein 6.8 g/dL (6.3-8.2)
[2022-11-30 18:30] LABS: Calcium 6.1 mg/dL (8.4-10.2); Potassium 2.6 mmol/L (3.5-5.1)
[2022-11-30 18:31] LABS: ALT 45 U/L (4-34); Magnesium <0.4 mg/dL (1.6-2.3)
[2022-11-30] MEDS ORDERED: POTASSIUM BICARBONATE/CIT AC 20 MEQ TABLET.EFF PO ONE (18:35)
[2022-11-30] MEDS ORDERED: MAGNESIUM SULFATE-D5W PMX 1 GM in DEXTROSE/WATER 1 100ML.BAG IVPB ONE (18:35)
[2022-11-30 18:38] LABS: T4, Free (Free Thyroxine) 1.79 ng/dL (0.78-2.19)
--- NOTE | 2022-11-30 18:59 | XR ---
EXAMINATION TYPE: XR chest 1V portable DATE OF EXAM: 11/30/2022 6:50 PM COMPARISON: Chest radiographs from 03/19/2022 TECHNIQUE: XR chest 1V portable Portable AP radiograph of the chest. CLINICAL INDICATION:Female, 56 years old with history of dysrhythmia; FINDINGS: Lungs/Pleura: There is no evidence of pleural effusion, focal consolidation, or pneumothorax. Pulmonary vascularity: Unremarkable. Heart/mediastinum: Cardiomediastinal silhouette is unremarkable. Musculoskeletal: No acute osseous pathology. Remote left sided rib fractures. IMPRESSION: No acute cardiopulmonary disease/process.
[2022-11-30] MEDS ORDERED: POTASSIUM CHLORIDE 20 MEQ in WATER FOR INJECTION 1 100ML.BAG IVPB STA (19:18)
[2022-11-30 20:08] LABS: Appearance,Urine Cloudy (Clear); Bacteria,Urine Many /hpf; Bilirubin,Urine Negative (Negative); Blood,Urine Large (Negative); Color,Urine Yellow; Glucose,Urine (UA) Trace (Negative); Ketones,Urine Trace (Negative); Leukocyte Esterase,Urine Large (Negative); Mucus,Urine Few /hpf; Nitrite,Urine Negative (Negative); Protein,Urine 3+ (Negative); RBC,Urine 25 /hpf (0-5); Specific Gravity,Urine 1.018 (1.001-1.035); Squamous Epithelial Cell,Urine 20 /hpf (0-4); Urobilinogen,Urine <2.0 mg/dL (<2.0); WBC,Urine 68 /hpf (0-5)
--- NOTE | 2022-11-30 20:43 | CT ---
EXAMINATION TYPE: CT abdomen pelvis wo con CT DLP: 730.2 mGycm, Automated exposure control for dose reduction was used. DATE OF EXAM: 11/30/2022 8:28 PM COMPARISON: No direct comparison. CLINICAL INDICATION:Female, 56 years old with history of abdominal pain; Confusion, suspected worseni ng UTI, n/v pt is unable to hold down her meds. TECHNIQUE: Standard CT of the abdomen and pelvis without IV or oral contrast. Lack of IV or oral co ntrast limits evaluation of solid and hollow organ viscera. Coronal and sagittal reformats were perfo rmed. FINDINGS: LOWER CHEST: Bilateral lower lobe dependent consolidation. ABDOMEN LIVER: Unremarkable GALLBLADDER AND BILE DUCTS: Unremarkable. PANCREAS: Unremarkable. SPLEEN: Unremarkable. ADRENAL GLANDS: Unremarkable. KIDNEYS AND URETERS: No evidence of hydronephrosis or renal calculus. Nonspecific bilateral perinephr ic fat stranding. Subcentimeter left superior pole likely cyst. PELVIS BLADDER: Nondistended with Taylor catheter in place. No perivesicular fat stranding. REPRODUCTIVE: Unremarkable. ABDOMEN & PELVIS STOMACH AND BOWEL: Small hiatal hernia, duodenum is unremarkable. Mildly distended stomach. No focal bowel wall thickening. The appendix is within normal limits. No evidence of bowel obstruction. PERITONEUM: No evidence of pneumoperitoneum or free fluid. VASCULATURE: Mild atherosclerotic calcifications are present throughout the abdominal aorta and its b ranches. No evidence of aortic aneurysm. Few pelvic phleboliths. MUSCULOSKELETAL: No acute osseous abnormalities. Degenerative disease most pronounced at L2-L3 with d isc space narrowing, endplate sclerosis, and osteophytosis. LYMPH NODES: No gross evidence for lymphadenopathy. SOFT TISSUE/ABDOMINAL WALL: Small fat filled umbilical hernia. Left back neurostimulator power pack w ith lead in the right hemisacrum. Right intramuscular gluteal lipoma measuring up to 7.6 cm. IMPRESSION: 1. Mild gastric distention otherwise no significant abnormality within the abdomen/pelvis within [place] itations of a noncontrast exam. 2. Mild bilateral lower lobe dependent consolidation favored to represent atelectasis. Infectious pro cess not excluded.
[2022-11-30] MEDS ORDERED: cloZAPine 100 MG TAB PO SCH (22:00)
[2022-11-30] MEDS ORDERED: NALOXONE 0.4 MG/ML 1 ML VIAL IV PRN (23:38)
[2022-11-30] MEDS ORDERED: ACETAMINOPHEN TAB 325 MG TAB PO PRN (23:38)
[2022-11-30] MEDS ORDERED: INSULIN REGULAR 100 UNIT/ML VIAL (IV) SQ STA (23:48)
[2022-12-01] MEDS: SODIUM CHLORIDE 0.9% 1,000 ML IV SCH ×5 (00:06→23:34)
[2022-12-01 00:17] LABS: Glucose,Whole Blood 249 mg/dL (70-110)
[2022-12-01] MEDS ORDERED: IPRATROPIUM 0.5 MG/2.5 ML NEBU INHALATION PRN (00:23)
[2022-12-01] MEDS ORDERED: POTASSIUM CHLORIDE 20 MEQ in WATER FOR INJECTION 1 100ML.BAG IVPB STA (00:23)
[2022-12-01] MEDS ORDERED: PANTOPRAZOLE 40 MG TABLET PO PRN (00:23)
[2022-12-01] MEDS ORDERED: ALBUTEROL NEBULIZED 2.5 MG/3 ML INHALATION PRN (00:23)
[2022-12-01] MEDS ORDERED: MAGNESIUM SULFATE-D5W PMX 1 GM in DEXTROSE/WATER 1 100ML.BAG IVPB ONE (00:23)
[2022-12-01] MEDS ORDERED: FORMOTEROL FUMARATE 20 MCG/2 ML NEBU INHALATION PRN (00:27)
[2022-12-01 07:33] LABS: Basophils % (A) 0 %; Eosinophils % (A) 0 %; HCT 37.4 % (34.0-46.0); HGB 12.3 gm/dL (11.4-16.0); Lymphocytes % (A) 14 %; MCH 28.7 pg (25.0-35.0); MCV 86.8 fL (80.0-100.0); Mean Platelet Volume 9.1; Monocytes # (A) 0.6 k/uL (0-1.0); Monocytes % (A) 5 %; Neutrophils # (A) 11.1 k/uL (1.3-7.7); Neutrophils % (A) 80 %; Platelet Count 150 k/uL (150-450); RBC 4.31 m/uL (3.80-5.40); RDW 14.7 % (11.5-15.5); WBC 13.8 k/uL (3.8-10.6)
[2022-12-01 07:44] LABS: ALT 28 U/L (4-34); AST 40 U/L (14-36); African American GFR (CKD) 52 (>60 ml/min/1.73 sqM); Albumin 3.9 g/dL (3.5-5.0); Alkaline Phosphatase 58 U/L (38-126); Anion Gap 14 mmol/L; Blood Urea Nitrogen 25 mg/dL (7-17); Carbon Dioxide 32 mmol/L (22-30); Chloride 92 mmol/L (98-107); Glucose 168 mg/dL (74-99); Magnesium 1.2 mg/dL (1.6-2.3); Non-African American GFR(CKD) 46 (>60 ml/min/1.73 sqM); Phosphorus 5.8 mg/dL (2.5-4.5); Potassium 2.8 mmol/L (3.5-5.1); Sodium 138 mmol/L (137-145); Total Bilirubin 0.7 mg/dL (0.2-1.3); Total Protein 6.5 g/dL (6.3-8.2)
[2022-12-01 08:07] LABS: Calcium 6.1 mg/dL (8.4-10.2)
[2022-12-01] MEDS ORDERED: metFORMIN 500 MG TAB PO SCH (09:00)
[2022-12-01] MEDS ORDERED: Potassium Replacement Protocol 1 EACH MISC MISCELLANE PRN (09:33)
[2022-12-01] MEDS ORDERED: DEXTROSE 50% SYRINGE 50 ML IVP PRN ×2 (09:34)
[2022-12-01] MEDS ORDERED: POTASSIUM CHLORIDE 20 MEQ in WATER FOR INJECTION 1 100ML.BAG IVPB ONE (10:00)
[2022-12-01] MEDS: METOPROLOL TARTRATE 25 MG TAB PO SCH ×2 (10:05→21:02)
[2022-12-01] MEDS: ATORVASTATIN 40 MG TAB PO SCH (10:05)
[2022-12-01] MEDS: APIXABAN 5 MG TAB PO SCH ×2 (10:05→21:02)
[2022-12-01] MEDS: LINAGLIPTIN 5 MG TABLET PO SCH (10:05)
[2022-12-01] MEDS: MAGNESIUM SULFATE-D5W PMX 1 GM in DEXTROSE/WATER 1 100ML.BAG IVPB SCH ×3 (10:06→16:59)
[2022-12-01] MEDS: NICOTINE 21MG/24HR PATCH TRANSDERM SCH (10:06)
[2022-12-01] MEDS ORDERED: POTASSIUM CHLORIDE ER 20 MEQ TAB.ER PO STA ×2 (10:54→20:44)
[2022-12-01] MEDS: metFORMIN 500 MG TAB PO SCH ×2 (11:00→21:02)
[2022-12-01] MEDS: GLIMEPIRIDE 4 MG TAB PO SCH ×2 (11:33→21:01)
[2022-12-01 11:44] LABS: Glucose,Whole Blood 263 mg/dL (70-110)
[2022-12-01] MEDS: INSULIN ASPART (NovoLOG) 100 UNIT/ML VIAL SQ SCH ×3 (11:55→21:02)
[2022-12-01] MEDS ORDERED: POTASSIUM CHLORIDE ER 20 MEQ TAB.ER PO ONE (12:00)
--- NOTE | 2022-12-01 12:00 | P.NPCON ---
History of Present Illness - Reason for Consult acute renal failure, hypokalemia - History of Present Illness Reason for consultation: Acute kidney injury and electrolyte imbalance History of present illness: Patient is a 56-year-old female seen in renal consultation for acute kidney injury and electrolyte balance. Patient's potassium level was 2.6 on admission and was 2.8 this morning. Magnesium level on admission was undetectable. Calcium level was low at 6.1. Creatinine was elevated at 1.88 and is 1.3 today. Patient is currently receiving normal saline. Patient came to the hospital due to vomiting and diarrhea going on for the last 1-2 days. Oral intake has been poor. Patient states that she was taking Bactrim for a UTI prior to admission which she believes made her sick. She denies regular use of nonsteroidals. Denies history of cardiac disease. CT of the abdomen and pelvis showed no evidence of hydronephrosis. Hemodynamically stable. No chest pain or shortness of breath. No fever or chills. Vital signs are stable. General: No acute distress. HEENT: Head exam is unremarkable. LUNGS: No audible rhonchi or wheezes. HEART: Rate and Rhythm are regular. ABDOMEN: Nontender. EXTREMITITES: No edema. Past Medical History Past Medical History: COPD, Diabetes Mellitus, GERD/Reflux, Hypertension, Osteoarthritis (OA), Pulmonary Embolus (PE), Seizure Disorder Additional Past Medical History / Comment(s): Hx of colon polyps, neuorgenic bladder, anemia, self caths at home, thyroid nodule, UTI with hospital admission september 2021- klebsiella treated with ceftin History of Any Multi-Drug Resistant Organisms: None Reported Past Surgical History: Back Surgery, Breast Surgery, Ear Surgery Additional Past Surgical History / Comment(s): hunter breast reduction, breast biopsy, bladder stimulator implant, skin grafts to ear Past Anesthesia/Blood Transfusion Reactions: No Reported Reaction Past Psychological History: Bipolar, Depression, Schizoaffective Disorder Smoking Status: Current some day smoker Past Alcohol Use History: None Reported Past Drug Use History: None Reported - Past Family History Father Family Medical History: Cancer Additional Family Medical History / Comment(s): lung Sister(s) Family Medical History: Cancer Additional Family Medical History / Comment(s): ovarian Medications and Allergies Home Medications Medication Instructions Recorded Confirmed Type cloZAPine [Clozaril] 200 mg PO HS 01/21/16 11/30/22 History fluPHENAZine decanoate [Prolixin 50 mg IM Q14D 01/21/16 11/30/22 History Decanoate] Tamsulosin [Flomax] 0.4 mg PO DAILY 03/13/17 11/30/22 History Omeprazole 20 mg PO BID PRN 07/22/20 11/30/22 History Apixaban [Eliquis] 5 mg PO BID 10/24/20 11/30/22 History fluvoxaMINE MALEATE [Luvox] 100 mg PO HS 10/24/20 11/30/22 History Atorvastatin [Lipitor] 40 mg PO DAILY 10/19/21 11/30/22 History Glimepiride [Amaryl] 4 mg PO BID 03/19/22 11/30/22 History Nicotine 21Mg/24Hr Patch [Habitrol] 1 patch TRANSDERM DAILY 03/19/22 11/30/22 History metFORMIN HCL ER [Glucophage XR] 500 mg PO BID 03/19/22 11/30/22 History sitaGLIPtin [Januvia] 100 mg PO DAILY 03/19/22 11/30/22 History Albuterol Inhaler [Ventolin Hfa 2 puff INHALATION RT-Q6H PRN 11/02/22 11/30/22 History Inhaler] Ergocalciferol (Vitamin D2) 1,250 mcg PO SA 11/02/22 11/30/22 History [Drisdol (50,000 Iu)] Metoprolol Tartrate [Lopressor] 25 mg PO BID 11/02/22 11/30/22 History Tiotropium Br/Olodaterol HCl 1 spray INHALATION RT-DAILY PRN 11/02/22 11/30/22 History [Stiolto Respimat Inhal [place]] methIMAzole [Tapazole] 5 mg PO DAILY 11/02/22 11/30/22 History propylthiouraciL [Propylthiouracil] 50 mg PO DAILY 11/02/22 11/30/22 History Ondansetron Odt [Zofran Odt] 4 mg PO Q8HR PRN #12 tab 11/30/22 11/30/22 Rx Sulfamethox-Tmp 800-160Mg [Bactrim 1 tab PO DIRECTED 11/30/22 11/30/22 History DS 800-160 mg] Allergies Allergy/AdvReac Type Severity Reaction Status Date / Time haloperidol [From Haldol] AdvReac Muscles Verified 11/30/22 18:33 freeze up in arms and hands haloperidol lactate AdvReac Muscles Verified 11/30/22 18:33 [From Haldol] freeze up in arms and hands Physical Exam Vitals: Vital Signs Temp Pulse Resp BP Pulse Ox 12/01/22 08:43 98.8 F 97 18 120/87 96 12/01/22 06:00 97 18 100/63 99 12/01/22 03:00 99 18 113/68 95 12/01/22 02:00 99 20 111/69 99 12/01/22 01:00 100 20 110/73 96 12/01/22 00:00 96 18 117/74 96 11/30/22 23:00 102 H 20 102/71 95 11/30/22 21:00 105 H 20 117/82 97 11/30/22 20:00 98 20 115/82 97 11/30/22 18:04 120 H 18 121/82 97 11/30/22 16:55 98.6 F 160 H 18 143/105 86 L Intake and Output 11/30/22 12/01/22 12/01/22 22:59 06:59 14:59 Intake Total 0 Output Total 550 Balance -550 Intake: Oral 0 Output: Urine 550 Other: Weight 70.307 kg Results - Lab Results Most recent lab results Calcium 6.1 mg/dL (8.4-10.2) L* 12/01/22 07:11 Phosphorus 5.8 mg/dL (2.5-4.5) H 12/01/22 07:11 Magnesium 1.2 mg/dL (1.6-2.3) L 12/01/22 07:11 12/01/22 07:11 12/01/22 07:11 Assessment and Plan Plan: Assessment: 1. Acute kidney injury secondary to vasomotor nephropathy from hypovolemia from vomiting and diarrhea. Creatinine 1.88 on admission and is 1.3 today. No hydronephrosis noted on CAT scan. 2. Hypokalemia from poor intake and hypomagnesemia. 3. Hypomagnesemia from GI losses. 4. Hypocalcemia secondary to acute kidney injury and PTH resistance from hypomagnesemia. 5. Metabolic acidosis secondary to acute kidney injury and GI losses. Improved. 6. UTI on antibiotics. 7. Diabetes mellitus. Plan: Maintain normal saline. Replace potassium and magnesium. 2 g IV calcium gluconate. Repeat BMP and magnesium level this evening. Avoid nephrotoxins. Continue to monitor renal function and urine output. Thank you for the consultation. I will continue to follow the patient with you during her hospital stay.
[2022-12-01] MEDS ORDERED: CALCIUM GLUCONATE IN NACL 2 GM in SALINE 1 100ML.BAG IVPB ONE (12:30)
[2022-12-01 16:58] LABS: Glucose,Whole Blood 256 mg/dL (70-110)
[2022-12-01] MEDS ORDERED: METOCLOPRAMIDE 5 MG/ML 2 ML VIAL IVP STA (17:22)
--- NOTE | 2022-12-01 19:21 | P.HPIM ---
History of Present Illness H&P Date: 12/01/22 Chief Complaint: Nausea and vomiting Patient is a 56-year-old female with a known history of hypertension, diabetes type 2 [id number], hypothyroidism, COPD, history of PE, seizure disorder, neurogenic bladder/bladder stimulator implant with prior history of urinary tract infections, bipolar/depression/schizoaffective disorder and currently everyday smoker presents to ER with complaints of intractable nausea and vomiting and unable to take oral intake for the past 2 to 3 days. Patient is also having worsening psychiatric symptoms and no EMS was called by her mother because she was not making sense. She was also having hallucinating and having delusional thoughts. Patient was also found to have elevated heart rate. Was also complaining of lower abdominal discomfort. Was also having diarrhea. Patient is currently taking Bactrim for urinary tract infection. She has been having poor oral intake. Patient states that she developed the symptoms since started on Bactrim. Patient has been afebrile. No chest pain or shortness of breath. On admission patient was tachycardic. EKG showed sinus tachycardia with short TN interval CT head showed no acute intracranial process. Nonspecific white matter changes, likely secondary to chronic small vessel ischemic changes. Chest x-ray showed no acute cardiopulmonary process. CT of the abdomen/pelvis showed mild gastric distention otherwise no significant abnormality within the abdomen/pelvis within limitations of no contrast exam. Mild bilateral lower lobe dependent consolidation favored to represent atelectasis. Infectious process not excluded. Laboratory data showed WBC 18.6 hemoglobin 13.1 and platelets 176 Sodium 136 potassium 2.2 chloride 88 bicarb is 19 BUN 24 and creatinine 1.88 and blood sugar 416 on admission. Anion gap 29. Calcium 6.1 and magnesium less than 0.4, AST 37 ALT 45, troponin x1-20 TSH 3.54 and free T4 level is 1.79. Urinalysis showed cloudy with 3+ protein trace glucose large leukocyte esterase with elevated RBCs and WBCs patient was also having squamous epithelial cells. Coronavirus PCR not detected. Review of Systems Constitutional: Patient denies any fever or chills . Patient does have generalized weakness. Abdomen: Patient complains of nausea vomiting, abdominal pain and diarrhea. Cardiovascular: Patient denies any chest pain or short of breath no palpitations. Respiratory: patient denied any cough . no sputum production. No shortness of breath Neurologic: Patient denied any numbness or tingling headache. Musculoskeletal: Patient denies any complaints of joint swelling or deformity. Skin: Negative Psychiatric: Anxious Endocrine: No heat or cold intolerance. No recent weight gain. Genitourinary: No dysuria or hematuria. All other 14 point ROS negative except the above Past Medical History Past Medical History: COPD, Diabetes Mellitus, GERD/Reflux, Hypertension, Osteoarthritis (OA), Pulmonary Embolus (PE), Seizure Disorder Additional Past Medical History / Comment(s): Hx of colon polyps, neuorgenic bladder, anemia, self caths at home, thyroid nodule, UTI with hospital admission september 2021- klebsiella treated with ceftin History of Any Multi-Drug Resistant Organisms: None Reported Past Surgical History: Back Surgery, Breast Surgery, Ear Surgery Additional Past Surgical History / Comment(s): hunter breast reduction, breast biopsy, bladder stimulator implant, skin grafts to ear Past Anesthesia/Blood Transfusion Reactions: No Reported Reaction Past Psychological History: Bipolar, Depression, Schizoaffective Disorder Smoking Status: Current some day smoker Past Alcohol Use History: None Reported Past Drug Use History: None Reported - Past Family History Father Family Medical History: Cancer Additional Family Medical History / Comment(s): lung Sister(s) Family Medical History: Cancer Additional Family Medical History / Comment(s): ovarian Medications and Allergies Home Medications Medication Instructions Recorded Confirmed Type cloZAPine [Clozaril] 200 mg PO HS 01/21/16 11/30/22 History fluPHENAZine decanoate [Prolixin 50 mg IM Q14D 01/21/16 11/30/22 History Decanoate] Tamsulosin [Flomax] 0.4 mg PO DAILY 03/13/17 11/30/22 History Omeprazole 20 mg PO BID PRN 07/22/20 11/30/22 History Apixaban [Eliquis] 5 mg PO BID 10/24/20 11/30/22 History fluvoxaMINE MALEATE [Luvox] 100 mg PO HS 10/24/20 11/30/22 History Atorvastatin [Lipitor] 40 mg PO DAILY 10/19/21 11/30/22 History Glimepiride [Amaryl] 4 mg PO BID 03/19/22 11/30/22 History Nicotine 21Mg/24Hr Patch [Habitrol] 1 patch TRANSDERM DAILY 03/19/22 11/30/22 History metFORMIN HCL ER [Glucophage XR] 500 mg PO BID 03/19/22 11/30/22 History sitaGLIPtin [Januvia] 100 mg PO DAILY 03/19/22 11/30/22 History Albuterol Inhaler [Ventolin Hfa 2 puff INHALATION RT-Q6H PRN 11/02/22 11/30/22 History Inhaler] Ergocalciferol (Vitamin D2) 1,250 mcg PO SA 11/02/22 11/30/22 History [Drisdol (50,000 Iu)] Metoprolol Tartrate [Lopressor] 25 mg PO BID 11/02/22 11/30/22 History Tiotropium Br/Olodaterol HCl 1 spray INHALATION RT-DAILY PRN 11/02/22 11/30/22 History [Stiolto Respimat Inhal [place]] methIMAzole [Tapazole] 5 mg PO DAILY 11/02/22 11/30/22 History propylthiouraciL [Propylthiouracil] 50 mg PO DAILY 11/02/22 11/30/22 History Ondansetron Odt [Zofran Odt] 4 mg PO Q8HR PRN #12 tab 11/30/22 11/30/22 Rx Sulfamethox-Tmp 800-160Mg [Bactrim 1 tab PO DIRECTED 11/30/22 11/30/22 History DS 800-160 mg] Allergies Allergy/AdvReac Type Severity Reaction Status Date / Time haloperidol [From Haldol] AdvReac Muscles Verified 11/30/22 18:33 freeze up in arms and hands haloperidol lactate AdvReac Muscles Verified 11/30/22 18:33 [From Haldol] freeze up in arms and hands Physical Exam Vitals: Vital Signs Temp Pulse Resp BP Pulse Ox 12/01/22 08:43 98.8 F 97 18 120/87 96 12/01/22 06:00 97 18 100/63 99 12/01/22 03:00 99 18 113/68 95 12/01/22 02:00 99 20 111/69 99 12/01/22 01:00 100 20 110/73 96 12/01/22 00:00 96 18 117/74 96 11/30/22 23:00 102 H 20 102/71 95 11/30/22 21:00 105 H 20 117/82 97 11/30/22 20:00 98 20 115/82 97 11/30/22 18:04 120 H 18 121/82 97 11/30/22 16:55 98.6 F 160 H 18 143/105 86 L Intake and Output 11/30/22 12/01/22 12/01/22 22:59 06:59 14:59 Intake Total 0 Balance 0 Intake: Oral 0 Other: Weight 70.307 kg PHYSICAL EXAMINATION: Patient is lying in the bed comfortably, mild acute distress, awake alert and oriented.. Anxious. HEENT: Normocephalic. Neck is supple. Pupils reactive. Nostrils clear. Oral cavity is moist. Neck reveals no JVD, carotid bruits, or thyromegaly. CHEST EXAMINATION: Trachea is central. Symmetrical expansion. Lung calderon clear to auscultation and percussion. Bibasilar diminished sounds. CARDIAC: Normal S1, S2 with no gallops. No murmurs ABDOMEN: Soft. Bowel sounds present. Nontender. No organomegaly. No abdominal bruits. Extremities: reveal no edema. No clubbing or cyanosis Neurologically awake, alert, oriented x3 with well-coordinated movements. No gross focal deficits noted Skin: No rash or skin lesions. Psychiatric: Coperative. Nonsuicidal, Musculoskeletal: No joint swelling or deformity. Normal range of motion. Results CBC & Chem 7: 12/01/22 07:11 12/01/22 07:11 Labs: Abnormal Lab Results - Last 24 Hours (Table) 11/30/22 11/30/22 11/30/22 Range/Units 17:51 17:51 17:51 WBC 18.6 H (3.8-10.6) k/uL Neutrophils # 16.9 H (1.3-7.7) k/uL Lymphocytes # 0.8 L (1.0-4.8) k/uL PT 14.2 H (9.0-12.0) sec INR 1.4 H (<1.2) Sodium 136 L (137-145) mmol/L Potassium 2.6 L* (3.5-5.1) mmol/L Chloride 88 L (98-107) mmol/L Carbon Dioxide 19 L (22-30) mmol/L BUN 24 H (7-17) mg/dL Creatinine 1.88 H (0.52-1.04) mg/dL Glucose 416 H (74-99) mg/dL POC Glucose (mg/dL) (70-110) mg/dL Calcium 6.1 L* (8.4-10.2) mg/dL Phosphorus (2.5-4.5) mg/dL Magnesium <0.4 L* (1.6-2.3) mg/dL AST 37 H (14-36) U/L ALT 45 H (4-34) U/L Urine Appearance (Clear) Urine Protein (Negative) Urine Glucose (UA) (Negative) Urine Ketones (Negative) Urine Blood (Negative) Ur Leukocyte Esterase (Negative) Urine RBC (0-5) /hpf Urine WBC (0-5) /hpf Ur Squamous Epith Cells (0-4) /hpf Urine Bacteria (None) /hpf Urine Mucus (None) /hpf 11/30/22 12/01/22 12/01/22 Range/Units 17:51 00:14 07:11 WBC 13.8 H (3.8-10.6) k/uL Neutrophils # 11.1 H (1.3-7.7) k/uL Lymphocytes # (1.0-4.8) k/uL PT (9.0-12.0) sec INR (<1.2) Sodium (137-145) mmol/L Potassium (3.5-5.1) mmol/L Chloride (98-107) mmol/L Carbon Dioxide (22-30) mmol/L BUN (7-17) mg/dL Creatinine (0.52-1.04) mg/dL Glucose (74-99) mg/dL POC Glucose (mg/dL) 249 H (70-110) mg/dL Calcium (8.4-10.2) mg/dL Phosphorus (2.5-4.5) mg/dL Magnesium (1.6-2.3) mg/dL AST (14-36) U/L ALT (4-34) U/L Urine Appearance Cloudy H (Clear) Urine Protein 3+ H (Negative) Urine Glucose (UA) Trace H (Negative) Urine Ketones Trace H (Negative) Urine Blood Large H (Negative) Ur Leukocyte Esterase Large H (Negative) Urine RBC 25 H (0-5) /hpf Urine WBC 68 H (0-5) /hpf Ur Squamous Epith Cells 20 H (0-4) /hpf Urine Bacteria Many H (None) /hpf Urine Mucus Few H (None) /hpf 12/01/22 Range/Units 07:11 WBC (3.8-10.6) k/uL Neutrophils # (1.3-7.7) k/uL Lymphocytes # (1.0-4.8) k/uL PT (9.0-12.0) sec INR (<1.2) Sodium (137-145) mmol/L Potassium 2.8 L (3.5-5.1) mmol/L Chloride 92 L (98-107) mmol/L Carbon Dioxide 32 H (22-30) mmol/L BUN 25 H (7-17) mg/dL Creatinine 1.30 H (0.52-1.04) mg/dL Glucose 168 H (74-99) mg/dL POC Glucose (mg/dL) (70-110) mg/dL Calcium 6.1 L* (8.4-10.2) mg/dL Phosphorus 5.8 H (2.5-4.5) mg/dL Magnesium 1.2 L (1.6-2.3) mg/dL AST 40 H (14-36) U/L ALT (4-34) U/L Urine Appearance (Clear) Urine Protein (Negative) Urine Glucose (UA) (Negative) Urine Ketones (Negative) Urine Blood (Negative) Ur Leukocyte Esterase (Negative) Urine RBC (0-5) /hpf Urine WBC (0-5) /hpf Ur Squamous Epith Cells (0-4) /hpf Urine Bacteria (None) /hpf Urine Mucus (None) /hpf Thrombosis Risk Factor Assmnt - DVT/VTE Prophylaxis DVT/VTE Prophylaxis: Pharmacologic Prophylaxis ordered Assessment and Plan Assessment: Acute urinary tract infection. Patient is on Bactrim at home. Sepsis secondary above Intractable nausea and vomiting likely due to acute gastritis Acute kidney injury likely prerenal secondary to above. Creatinine 1.88 on admission. Anion gap metabolic acidosis secondary to acute kidney injury Hyperglycemia with uncontrolled diabetes type 2 [id number] Hyperthyroidism Severe hypokalemia, hypomagnesemia due to poor oral intake Hypocalcemia Bibasilar atelectasis Mild transaminitis History of PE History of seizure disorder Neurogenic bladder with history of bladder stimulator implant placement Bipolar disorder/depression and schizoaffective disorder Currently everyday smoker GI prophylaxis with PPI Plan: Patient will be continued IV hydration with normal saline. Continue to follow renal function. Continue with antibiotics, ceftriaxone and follow-up urine culture report. Replace potassium and magnesium Patient will be continued on hypoglycemics and insulin sliding scale for better blood sugar control. Continue with home medications and pain management and follow-up closely. Nephrology consult for evaluation of acute kidney injury. Smoking cessation has been counseled extensively. Diagnosis guarded at this time. Time with Patient: Greater than 30
[2022-12-01 19:49] LABS: Glucose,Whole Blood 236 mg/dL (70-110)
[2022-12-01 20:26] LABS: African American GFR (CKD) 77 (>60 ml/min/1.73 sqM); Anion Gap 14 mmol/L; Blood Urea Nitrogen 21 mg/dL (7-17); Calcium 6.8 mg/dL (8.4-10.2); Carbon Dioxide 28 mmol/L (22-30); Chloride 94 mmol/L (98-107); Glucose 205 mg/dL (74-99); Magnesium 2.3 mg/dL (1.6-2.3); Non-African American GFR(CKD) 67 (>60 ml/min/1.73 sqM); Phosphorus 3.4 mg/dL (2.5-4.5); Sodium 136 mmol/L (137-145)
[2022-12-01 20:33] LABS: Potassium 3.1 mmol/L (3.5-5.1)
[2022-12-01] MEDS: cloZAPine 100 MG TAB PO SCH (21:01)
[2022-12-02 05:54] LABS: Glucose,Whole Blood 135 mg/dL (70-110)
[2022-12-02] MEDS: INSULIN ASPART (NovoLOG) 100 UNIT/ML VIAL SQ SCH ×4 (06:09→20:25)
[2022-12-02 08:17] LABS: Basophils % (A) 0 %; Eosinophils % (A) 0 %; HCT 37.1 % (34.0-46.0); HGB 12.1 gm/dL (11.4-16.0); Lymphocytes # (A) 1.4 k/uL (1.0-4.8); Lymphocytes % (A) 16 %; MCH 29.1 pg (25.0-35.0); MCHC 32.7 g/dL (31.0-37.0); Mean Platelet Volume 9.2; Monocytes # (A) 0.4 k/uL (0-1.0); Monocytes % (A) 5 %; Neutrophils # (A) 7.1 k/uL (1.3-7.7); Neutrophils % (A) 78 %; Platelet Count 137 k/uL (150-450); RBC 4.17 m/uL (3.80-5.40); RDW 14.8 % (11.5-15.5); WBC 9.1 k/uL (3.8-10.6)
[2022-12-02 08:18] LABS: African American GFR (CKD) >90 (>60 ml/min/1.73 sqM); Anion Gap 10 mmol/L; Blood Urea Nitrogen 13 mg/dL (7-17); Calcium 6.7 mg/dL (8.4-10.2); Carbon Dioxide 27 mmol/L (22-30); Chloride 104 mmol/L (98-107); Glucose 140 mg/dL (74-99); Non-African American GFR(CKD) 84 (>60 ml/min/1.73 sqM); Phosphorus 3.1 mg/dL (2.5-4.5); Potassium 3.7 mmol/L (3.5-5.1); Sodium 141 mmol/L (137-145)
[2022-12-02] MEDS: ATORVASTATIN 40 MG TAB PO SCH (08:41)
[2022-12-02] MEDS: NICOTINE 21MG/24HR PATCH TRANSDERM SCH ×2 (08:41→14:51)
[2022-12-02] MEDS: APIXABAN 5 MG TAB PO SCH ×2 (08:42→20:23)
[2022-12-02] MEDS: metFORMIN 500 MG TAB PO SCH ×2 (08:42→20:24)
[2022-12-02] MEDS: TAMSULOSIN 0.4 MG CAP.ER.24H PO SCH (08:42)
[2022-12-02] MEDS: METOPROLOL TARTRATE 25 MG TAB PO SCH ×2 (08:42→20:23)
[2022-12-02] MEDS: LINAGLIPTIN 5 MG TABLET PO SCH (08:42)
[2022-12-02] MEDS: GLIMEPIRIDE 4 MG TAB PO SCH ×2 (08:42→20:23)
[2022-12-02] MEDS: methIMAzole 5 MG TAB PO SCH (08:46)
[2022-12-02] MEDS: SODIUM CHLORIDE 0.9% 1,000 ML IV SCH ×3 (08:46→20:26)
[2022-12-02] MEDS ORDERED: fluPHENAZine DECANOATE 25 MG/ML 5ML MDV IM SCH (09:00)
--- NOTE | 2022-12-02 10:42 | XR ---
EXAMINATION TYPE: XR ankle complete LT DATE OF EXAM: 12/02/2022 COMPARISON: NONE HISTORY: Pain TECHNIQUE: 3 views of the left ankle are submitted for evaluation. FINDINGS: There is no evidence for fracture or dislocation. Ankle mortise is intact. Soft tissues are within normal limits. IMPRESSION: 1. No evidence for acute fracture.
[2022-12-02 11:24] LABS: Glucose,Whole Blood 177 mg/dL (70-110)
--- NOTE | 2022-12-02 11:46 | P.PN ---
Subjective Patient is seen in follow-up for acute kidney injury. GFR back to baseline. On IV fluids. No vomiting or diarrhea. Nonoliguric. Vital signs are stable. General: No acute distress. HEENT: Head exam is unremarkable. LUNGS: No audible rhonchi or wheezes. HEART: Rate and Rhythm are regular. ABDOMEN: Nontender. EXTREMITITES: No edema. Objective - Vital Signs Vital signs: Vital Signs Temp 98.0 F 12/02/22 11:30 Pulse 84 12/02/22 11:30 Resp 18 12/02/22 11:30 BP 106/74 12/02/22 11:30 Pulse Ox 95 12/02/22 11:30 FiO2 Intake & Output 12/01/22 12/02/22 12/02/22 18:59 06:59 18:59 Intake Total 2450 450 Output Total 550 2025 Balance 1900 -2025 450 Intake: Intake, IV Titration 1350 Amount Calcium Gluconate in NaCl 100 2 gm In Saline 1 100ml. bag @ 100 mls/hr IVPB ONCE ONE Rx#:[id number] Magnesium Sulfate-D5w Pmx 300 1 gm In Dextrose/Water 1 100ml.bag @ 100 mls/hr IVPB Q1H [facility] Rx#: [id number] Potassium Chloride 20 meq 100 In Water For Injection 1 100ml.bag @ 50 mls/hr IVPB ONCE ONE Rx#: [id number] Sodium Chloride 0.9% 1, 800 000 ml @ 130 mls/hr IV . Q7H42M [facility] Rx#:[id number] cefTRIAXone 2 gm In 50 Sodium Chloride 0.9% 50 ml @ 100 mls/hr IVPB Q24HR [facility] Rx#:[id number] Oral 1100 450 Output: Urine 550 2025 Other: Voiding Method Indwelling Catheter Indwelling Catheter Indwelling Catheter # Bowel Movements 2 - Labs CBC & Chem 7: 12/02/22 06:54 12/02/22 06:54 Labs: Abnormal Lab Results - Last 24 Hours (Table) 12/01/22 12/01/22 12/01/22 Range/Units 11:42 16:57 19:39 Plt Count (150-450) k/uL Sodium (137-145) mmol/L Potassium (3.5-5.1) mmol/L Chloride (98-107) mmol/L BUN (7-17) mg/dL Glucose (74-99) mg/dL POC Glucose (mg/dL) 263 H 256 H 236 H (70-110) mg/dL Hemoglobin A1c (<=6.0) % Calcium (8.4-10.2) mg/dL 12/01/22 12/02/22 12/02/22 Range/Units 19:53 05:53 06:54 Plt Count (150-450) k/uL Sodium 136 L (137-145) mmol/L Potassium 3.1 L (3.5-5.1) mmol/L Chloride 94 L (98-107) mmol/L BUN 21 H (7-17) mg/dL Glucose 205 H (74-99) mg/dL POC Glucose (mg/dL) 135 H (70-110) mg/dL Hemoglobin A1c 8.2 H (<=6.0) % Calcium 6.8 L (8.4-10.2) mg/dL 12/02/22 12/02/22 12/02/22 Range/Units 06:54 06:54 11:21 Plt Count 137 L (150-450) k/uL Sodium (137-145) mmol/L Potassium (3.5-5.1) mmol/L Chloride (98-107) mmol/L BUN (7-17) mg/dL Glucose 140 H (74-99) mg/dL POC Glucose (mg/dL) 177 H (70-110) mg/dL Hemoglobin A1c (<=6.0) % Calcium 6.7 L (8.4-10.2) mg/dL Assessment and Plan Plan: Assessment: 1. Acute kidney injury secondary to vasomotor nephropathy from hypovolemia from vomiting and diarrhea. Creatinine 1.88 on admission and is 0.79 today. No hydronephrosis noted on CAT scan. 2. Hypokalemia from poor intake and hypomagnesemia. Replaced. Better. 3. Hypomagnesemia from GI losses. Replaced. Better. 4. Hypocalcemia secondary to acute kidney injury and PTH resistance from hyp omagnesemia. Replaced. Better. 5. Metabolic acidosis secondary to acute kidney injury and GI losses. Improved. 6. UTI on antibiotics. 7. Diabetes mellitus. Plan: Maintain normal saline. Decrease rate to 50 mL an hour. Encourage oral intake. Avoid nephrotoxins. Continue to monitor renal function and urine output. Check PTH and vitamin D level.
[2022-12-02] MEDS ORDERED: CALCIUM GLUCONATE IN NACL 1 GM in SALINE 1 100ML.BAG IVPB ONE (12:30)
--- NOTE | 2022-12-02 15:44 | P.CN ---
Psychiatric Consult - . Consult date: 12/02/22 Consult:: 12/02/22 13:36 IDENTIFYING DATA: This patient is a 56-year-old female currently lives alone in a trailer, she has 2 kids. REASON FOR REFERRAL: Psychiatry was consulted for "acute psychosis" HISTORY OF PRESENT ILLNESS: The patient presented to the hospital on 11/30 for altered mental status and a psychiatric evaluation. Patient apparently was hallucinating, delusional thoughts and psychotic according to ER report. Patient's WBCs were elevated at 18.6, neutrophils are elevated, sodium of potassium were fairly low. TSH was normal. Patient was having some nausea and vomiting. She was positive for UTI on her urinalysis. Patient received a Prolixin D this morning as regularly scheduled from her [facility]. She was seen today in agreeable to speak to medical technical writer at the bedside. She claims that she came in because she was "concerned about cancer" and states that she has been worried because she is a smoker. She was directable through most of the interview and was the most part appropriately answering questions. She was not endorsing any delusions at this time, no paranoia. States that her mood is "fine" denying any depression at this time denies any anxiety. She denied any racing thoughts, sleep states that her sleep has been on and off, appetite as been fair. She regularly goes to [facility] for psychiatric care and follow-up. At this time patient denies any current suicidal or homical ideations, intent or plan. Patient denies any auditory, visual hallucinations and denies any paranoia or delusions. Patients admits to using no recreational drugs PAST PSYCHIATRIC HISTORY: Patient has a a history of schizoaffective disorder. Patient is currently on Prolixin D 50 mg IM every 14 days, fluvoxamine 100 mg daily at bedtime. She apparently calls about [facility] however does not know who her prescriber is. Patient denies any previous psychiatric hospitalizations. Patient denies any history of suicide attempts in the past. Past Medical History: COPD, Diabetes Mellitus, GERD/Reflux, Hypertension, Osteoarthritis (OA), Pulmonary Embolus (PE), Seizure Disorder Additional Past Medical History / Comment(s): Hx of colon polyps, neuorgenic bladder, anemia, self caths at home, thyroid nodule, UTI with hospital admission september 2021- klebsiella treated with ceftin History of Any Multi-Drug Resistant Organisms: None Reported Past Surgical History: Back Surgery, Breast Surgery, Ear Surgery Additional Past Surgical History / Comment(s): hunter breast reduction, breast biopsy, bladder stimulator implant, skin grafts to ear Past Anesthesia/Blood Transfusion Reactions: No Reported Reaction Past Psychological History: Bipolar, Depression, Schizoaffective Disorder Smoking Status: Current some day smoker Past Alcohol Use History: None Reported Past Drug Use History: None Reported ALLERGIES: as per EMR. CHEMICAL DEPENDENCY HISTORY: as per HPI. FAMILY PSYCHIATRIC/SUBSTANCE USE HISTORY: denies SOCIAL HISTORY: Patient was born and raised in [place]. She states that she completed high school and attended some college. Denies any legal history. She states that she has 2 kids currently lives alone in a trailer.. MENTAL STATUS EXAM: General Appearance: Patient appears to be overweight, stated age is alert, pleasant, and cooperative. Patient appears to have fair hygiene and grooming wearing hospital gown with intense eye contact. Behavior: Patient is calmly lying in bed without any agitated behavior. For the most part directable and appropriate Speech: Patient's speech is fluent and nonpressured. [place] Mood/Affect: Patient reports their mood is "good", affect is congruent Suicidality/Homicidality: Patient denies having any suicidal or homicidal ideation intent or plan. Perceptions: Patient denies any visual hallucinations and denies any auditory hallucinations Though content/process: There is no evidence of any delusional thought content and thought process is linear and goal-directed. [place] Memory and concentration: AOX3, grossly intact for the purposes of this session. Can spell "WORLD" backwards Judgment and insight: Fair IMPRESSIONS: Schizoaffective disorder Urinary tract infection PLAN: -At this time patient DOES NOT meet criteria for inpatient psychiatric admission. -Would recommend the following medication changes/additions: Can continue with fluvoxamine 100 mg daily at bedtime for mood/anxiety, Prolixin D 50 mg IM was given this morning on 12/02 and next dose will be due in 14 days on 12/16 at [facility]. I added trazodone 50 mg daily at bedtime when necessary for insomnia. -Communicated plan to patient's nurse -Psychiatry will sign off at this time -Please contact with any questions. 12/02/22 15:39
[2022-12-02 16:19] LABS: Glucose,Whole Blood 160 mg/dL (70-110)
--- NOTE | 2022-12-02 19:39 | P.PN ---
Subjective Progress Note Date: 12/02/22 Patient is a 56-year-old female with a known history of hypertension, diabetes type 2 [id number], hypothyroidism, COPD, history of PE, seizure disorder, neurogenic bladder/bladder stimulator implant with prior history of urinary tract infections, bipolar/depression/schizoaffective disorder and currently everyday smoker presents to ER with complaints of intractable nausea and vomiting and unable to take oral intake for the past 2 to 3 days. Patient is also having worsening psychiatric symptoms and no EMS was called by her mother because she was not making sense. She was also having hallucinating and having delusional thoughts. Patient was also found to have elevated heart rate. Was also complaining of lower abdominal discomfort. Was also having diarrhea. Patient is currently taking Bactrim for urinary tract infection. She has been having poor oral intake. Patient states that she developed the symptoms since started on Bactrim. Patient has been afebrile. No chest pain or shortness of breath. On admission patient was tachycardic. EKG showed sinus tachycardia with short TN interval CT head showed no acute intracranial process. Nonspecific white matter changes, likely secondary to chronic small vessel ischemic changes. Chest x-ray showed no acute cardiopulmonary process. CT of the abdomen/pelvis showed mild gastric distention otherwise no significant abnormality within the abdomen/pelvis within limitations of no contrast exam. Mild bilateral lower lobe dependent consolidation favored to represent atelectasis. Infectious process not excluded. Laboratory data showed WBC 18.6 hemoglobin 13.1 and platelets 176 Sodium 136 potassium 2.2 chloride 88 bicarb is 19 BUN 24 and creatinine 1.88 and blood sugar 416 on admission. Anion gap 29. Calcium 6.1 and magnesium less than 0.4, AST 37 ALT 45, troponin x1-20 TSH 3.54 and free T4 level is 1.79. Urinalysis showed cloudy with 3+ protein trace glucose large leukocyte esterase with elevated RBCs and WBCs patient was also having squamous epithelial cells. Coronavirus PCR not detected. 12/02/2022 Patient is seen and evaluated in follow-up today and was evaluated by psychiatry making adjustments to medications and reports does not meet criteria for inpatient psychiatric facility. Patient with significant weakness being evaluated by physical therapy and working on possibly ECF. Patient also being followed by nephrology as patient had multiple electrolyte abnormalities along with acute kidney injury and maintained on gentle IV hydration. Kidney function is improving and replacing electrolytes per protocol. Patient having difficulty with placing any weight on left ankle and will obtain ankle x-ray. Review of systems: Constitutional: No reports of fatigue, fever, or chills Cardiovascular: No reports of chest pain or palpitations Respiratory: No reports of shortness of breath or cough GI: No reports of nausea, vomiting, or diarrhea : No reports of dysuria or retention Neurovascular: reports of generalized weakness, reports left ankle pain All medications have been reviewed Physical exam: Patient is sitting up in the bed, awake alert and orientedx2 baseline.. Anxious. HEENT: Normocephalic. Neck is supple. Pupils reactive. Nostrils clear. Oral cavity is moist. Neck reveals no JVD, carotid bruits, or thyromegaly. CHEST EXAMINATION: Trachea is central. Symmetrical expansion. Lung calderon clear to auscultation and percussion. Bibasilar diminished sounds. CARDIAC: Normal S1, S2 with no gallops. No murmurs ABDOMEN: Soft. Bowel sounds present. Nontender. No organomegaly. No abdominal bruits. Extremities: reveal no edema. No clubbing or cyanosis. Left ankle pain on palpation with no obvious deformities noted Neurologically awake, alert, oriented x2 with well-coordinated movements. Diffusely weak Skin: No rash or skin lesions. Psychiatric: Cooperative. Non-suicidal, Musculoskeletal: No joint swelling or deformity. Normal range of motion. Assessment: Acute urinary tract infection. Patient is on Bactrim at home. Sepsis secondary above Left ankle pain, negative for fractures Intractable nausea and vomiting likely due to acute gastritis Acute kidney injury likely prerenal secondary to above. Creatinine 1.88 on admission. Anion gap metabolic acidosis secondary to acute kidney injury Hyperglycemia with uncontrolled diabetes type 2 [id number] Hyperthyroidism Severe hypokalemia, hypomagnesemia due to poor oral intake Hypocalcemia Bibasilar atelectasis Mild transaminitis History of PE History of seizure disorder Neurogenic bladder with history of bladder stimulator implant placement Bipolar disorder/depression and schizoaffective disorder Currently everyday smoker GI prophylaxis with PPI Plan: Patient will be continued IV hydration with normal saline. Continue to follow renal function. Kidney functions improving with nephrology following Continue with antibiotics, ceftriaxone and follow-up urine culture report. Urine culture remains pending Replace potassium and magnesium per protocol. Encouraged oral intake Patient will be continued on insulin sliding scale and Accu-Cheks before meals and at bedtime Appropriate home medications reviewed and resumed Consult PT/OT therapy for ECF. Patient and family are agreeable. Patient reporting some left ankle pain and obtained x-ray with no acute fracture noted. Case management following as patient will also require insurance authorization once cleared by consultations. Awaiting urine culture at this time. Due to multiple complex medical issues, prognosis is guarded The impression and plan of care has been dictated by Gogo Yepez, Nurse Practitioner as directed. Dr. Fareed MD I have performed a history and examination and MDM of this patient, discussed the same with the dictator, and agree with the dictator's assessment and plan as written ,documented as a scribe. Based on total visit time, I have performed more than 50% of the visit. Objective - Vital Signs Vital signs: Vital Signs Temp 98.2 F 12/02/22 15:21 Pulse 58 L 12/02/22 15:21 Resp 18 12/02/22 15:21 BP 115/75 12/02/22 15:21 Pulse Ox 95 12/02/22 15:21 FiO2 Intake & Output 12/02/22 12/02/22 12/03/22 06:59 18:59 06:59 Intake Total 1100 Output Total 2024 800 Balance -202 300 Intake: Oral 1100 Output: Urine 2024 800 Female - External 800 Other: Voiding Method Indwelling Catheter Indwelling Catheter # Bowel Movements 1 - Labs CBC & Chem 7: 12/02/22 06:54 12/02/22 06:54 Labs: Abnormal Lab Results - Last 24 Hours (Table) 12/01/22 12/01/22 12/02/22 Range/Units 19:39 19:53 05:53 Plt Count (150-450) k/uL Sodium 136 L (137-145) mmol/L Potassium 3.1 L (3.5-5.1) mmol/L Chloride 94 L (98-107) mmol/L BUN 21 H (7-17) mg/dL Glucose 205 H (74-99) mg/dL POC Glucose (mg/dL) 236 H 135 H (70-110) mg/dL Hemoglobin A1c (<=6.0) % Calcium 6.8 L (8.4-10.2) mg/dL PTH Intact (14.0-72.0) pg/mL 12/02/22 12/02/22 12/02/22 Range/Units 06:54 06:54 06:54 Plt Count 137 L (150-450) k/uL Sodium (137-145) mmol/L Potassium (3.5-5.1) mmol/L Chloride (98-107) mmol/L BUN (7-17) mg/dL Glucose 140 H (74-99) mg/dL POC Glucose (mg/dL) (70-110) mg/dL Hemoglobin A1c 8.2 H (<=6.0) % Calcium 6.7 L (8.4-10.2) mg/dL PTH Intact (14.0-72.0) pg/mL 12/02/22 12/02/22 12/02/22 Range/Units 11:21 12:04 16:17 Plt Count (150-450) k/uL Sodium (137-145) mmol/L Potassium (3.5-5.1) mmol/L Chloride (98-107) mmol/L BUN (7-17) mg/dL Glucose (74-99) mg/dL POC Glucose (mg/dL) 177 H 160 H (70-110) mg/dL Hemoglobin A1c (<=6.0) % Calcium (8.4-10.2) mg/dL PTH Intact 154.0 H (14.0-72.0) pg/mL
[2022-12-02 20:14] LABS: Glucose,Whole Blood 237 mg/dL (70-110)
[2022-12-02] MEDS: cloZAPine 100 MG TAB PO SCH (20:23)
[2022-12-03 06:05] LABS: Glucose,Whole Blood 148 mg/dL (70-110)
[2022-12-03] MEDS: INSULIN ASPART (NovoLOG) 100 UNIT/ML VIAL SQ SCH ×4 (06:07→20:50)
[2022-12-03 08:00] LABS: African American GFR (CKD) >90 (>60 ml/min/1.73 sqM); Albumin 3.2 g/dL (3.5-5.0); Anion Gap 10 mmol/L; Blood Urea Nitrogen 12 mg/dL (7-17); Calcium 7.8 mg/dL (8.4-10.2); Carbon Dioxide 29 mmol/L (22-30); Chloride 102 mmol/L (98-107); Glucose 156 mg/dL (74-99); Magnesium 1.5 mg/dL (1.6-2.3); Non-African American GFR(CKD) 85 (>60 ml/min/1.73 sqM); Potassium 3.6 mmol/L (3.5-5.1); Sodium 141 mmol/L (137-145)
[2022-12-03] MEDS: LINAGLIPTIN 5 MG TABLET PO SCH (09:09)
[2022-12-03] MEDS: ATORVASTATIN 40 MG TAB PO SCH (09:09)
[2022-12-03] MEDS: metFORMIN 500 MG TAB PO SCH ×2 (09:09→20:50)
[2022-12-03] MEDS: methIMAzole 5 MG TAB PO SCH (09:10)
[2022-12-03] MEDS: APIXABAN 5 MG TAB PO SCH ×2 (09:10→20:50)
[2022-12-03] MEDS: TAMSULOSIN 0.4 MG CAP.ER.24H PO SCH (09:10)
[2022-12-03] MEDS: METOPROLOL TARTRATE 25 MG TAB PO SCH ×2 (09:10→20:50)
[2022-12-03] MEDS: GLIMEPIRIDE 4 MG TAB PO SCH ×2 (09:10→21:45)
[2022-12-03] MEDS: NICOTINE 21MG/24HR PATCH TRANSDERM SCH (09:10)
[2022-12-03] MEDS ORDERED: POTASSIUM CHLORIDE ER 20 MEQ TAB.ER PO STA (11:07)
--- NOTE | 2022-12-03 11:07 | P.PN ---
Subjective Patient is seen in follow-up for acute kidney injury. GFR back to baseline. On IV fluids. No vomiting or diarrhea. Nonoliguric. No active complaints. Vital signs are stable. General: No acute distress. HEENT: Head exam is unremarkable. LUNGS: No audible rhonchi or wheezes. HEART: Rate and Rhythm are regular. ABDOMEN: Nontender. EXTREMITITES: No edema. Objective - Vital Signs Vital signs: Vital Signs Temp 98.6 F 12/03/22 09:00 Pulse 94 12/03/22 09:00 Resp 18 12/03/22 09:00 BP 143/88 12/03/22 09:00 Pulse Ox 98 12/03/22 09:00 FiO2 Intake & Output 12/02/22 12/03/22 12/03/22 18:59 06:59 18:59 Intake Total 1200 890 Output Total 800 3250 1700 Balance 400 -3250 -810 Intake: Intake, IV Titration 100 650 Amount Calcium Gluconate in NaCl 100 1 gm In Saline 1 100ml. bag @ 100 mls/hr IVPB ONCE ONE Rx#:[id number] Sodium Chloride 0.9% 1, 600 000 ml @ 50 mls/hr IV . [facility] Rx#:[id number] cefTRIAXone 2 gm In 50 Sodium Chloride 0.9% 50 ml @ 100 mls/hr IVPB Q24HR [facility] Rx#:[id number] Oral 1100 240 Output: Urine 800 3250 1700 Female - External 800 Other: Voiding Method Indwelling Catheter Indwelling Catheter Indwelling Catheter # Bowel Movements 1 - Labs CBC & Chem 7: 12/02/22 06:54 12/03/22 06:57 Labs: Abnormal Lab Results - Last 24 Hours (Table) 12/02/22 12/02/22 12/02/22 Range/Units 06:54 11:21 12:04 Glucose (74-99) mg/dL POC Glucose (mg/dL) 177 H (70-110) mg/dL Hemoglobin A1c 8.2 H (<=6.0) % Calcium (8.4-10.2) mg/dL Magnesium (1.6-2.3) mg/dL Albumin (3.5-5.0) g/dL PTH Intact 154.0 H (14.0-72.0) pg/mL 12/02/22 12/02/22 12/03/22 Range/Units 16:17 20:13 06:04 Glucose (74-99) mg/dL POC Glucose (mg/dL) 160 H 237 H 148 H (70-110) mg/dL Hemoglobin A1c (<=6.0) % Calcium (8.4-10.2) mg/dL Magnesium (1.6-2.3) mg/dL Albumin (3.5-5.0) g/dL PTH Intact (14.0-72.0) pg/mL 12/03/22 Range/Units 06:57 Glucose 156 H (74-99) mg/dL POC Glucose (mg/dL) (70-110) mg/dL Hemoglobin A1c (<=6.0) % Calcium 7.8 L (8.4-10.2) mg/dL Magnesium 1.5 L (1.6-2.3) mg/dL Albumin 3.2 L (3.5-5.0) g/dL PTH Intact (14.0-72.0) pg/mL Microbiology - Last 24 Hours (Table) 12/01/22 09:37 Urine Culture - Preliminary Urine,Catheterized Gram Neg Bacilli Assessment and Plan Plan: Assessment: 1. Acute kidney injury secondary to vasomotor nephropathy from hypovolemia from vomiting and diarrhea. Creatinine 1.88 on admission and is 0.77 today. No hydronephrosis noted on CAT scan. 2. Hypokalemia from poor intake and hypomagnesemia. Replaced. Stable. 3. Hypomagnesemia from GI losses. 4. Hypocalcemia secondary to acute kidney injury and PTH resistance from hypomagnesemia. Replaced. Better. PTH 154. Vitamin D level 46.8. 5. Metabolic acidosis secondary to acute kidney injury and GI losses. Improved. 6. UTI on antibiotics. Urine culture positive for gram-negative bacilli. 7. Diabetes mellitus. Plan: Maintain gentle IV hydration. Replace potassium. Add oral magnesium oxide. Encourage oral intake. Avoid nephrotoxins. Continue to monitor renal function and urine output.
[2022-12-03 11:38] LABS: Glucose,Whole Blood 282 mg/dL (70-110)
[2022-12-03] MEDS: MAGNESIUM OXIDE 400 MG TAB PO SCH ×2 (11:45→20:50)
[2022-12-03] MEDS: SODIUM CHLORIDE 0.9% 1,000 ML IV SCH ×2 (11:45→21:46)
--- NOTE | 2022-12-03 16:41 | PN ---
PROGRESS NOTE DATE OF SERVICE: 12/03/2022 SUBJECTIVE: This is a 56-year-old woman, who was admitted with acute UTI, was confused on admission. The patient also had features of sepsis. Urine culture showed gram- negative bacilli. OBJECTIVE: VITAL SIGNS: Pulse is 94, blood pressure 103/68, respirations 18. CHEST: Clear to auscultation. CARDIOVASCULAR: S1, S2. ABDOMEN: Soft. NERVOUS SYSTEM: Diffusely weak. LABORATORY DATA: Reviewed. ASSESSMENT: 1. Acute urinary tract infection with gram-negative bacilli with sepsis, present on admission. 2. Left ankle pain. 3. Intractable nausea, vomiting. 4. Acute kidney injury. 5. Multiple medical issues. RECOMMENDATIONS: Recommended to continue current management and continue symptomatic treatment. Otherwise, the patient is on empiric IV antibiotics. We will continue to monitor. Guarded prognosis. Further recommendations to follow. See orders for further details. MMODL / IJN: [id number] /
[2022-12-03 16:42] LABS: Glucose,Whole Blood 162 mg/dL (70-110)
[2022-12-03 20:04] LABS: Glucose,Whole Blood 222 mg/dL (70-110)
[2022-12-03] MEDS: traZODone HCL 50 MG TAB PO PRN (20:50)
[2022-12-03] MEDS: cloZAPine 100 MG TAB PO SCH (20:51)
[2022-12-04 06:07] LABS: Glucose,Whole Blood 115 mg/dL (70-110)
[2022-12-04] MEDS: INSULIN ASPART (NovoLOG) 100 UNIT/ML VIAL SQ SCH ×4 (06:07→20:38)
[2022-12-04] MEDS: SODIUM CHLORIDE 0.9% 1,000 ML IV SCH (06:07)
[2022-12-04] MEDS: GLIMEPIRIDE 4 MG TAB PO SCH ×2 (07:58→20:16)
[2022-12-04] MEDS: APIXABAN 5 MG TAB PO SCH ×2 (07:58→20:17)
[2022-12-04] MEDS: ATORVASTATIN 40 MG TAB PO SCH (07:58)
[2022-12-04] MEDS: METOPROLOL TARTRATE 25 MG TAB PO SCH ×2 (07:59→20:16)
[2022-12-04] MEDS: TAMSULOSIN 0.4 MG CAP.ER.24H PO SCH (07:59)
[2022-12-04] MEDS: methIMAzole 5 MG TAB PO SCH (07:59)
[2022-12-04] MEDS: LINAGLIPTIN 5 MG TABLET PO SCH (07:59)
[2022-12-04] MEDS: MAGNESIUM OXIDE 400 MG TAB PO SCH ×2 (07:59→20:16)
[2022-12-04] MEDS: metFORMIN 500 MG TAB PO SCH ×2 (07:59→20:17)
[2022-12-04] MEDS: NICOTINE 21MG/24HR PATCH TRANSDERM SCH (08:05)
--- NOTE | 2022-12-04 10:30 | P.PN ---
Subjective Patient is seen in follow-up for acute kidney injury. GFR back to baseline. On IV fluids. No vomiting or diarrhea. Nonoliguric. No active complaints. Has chronic Taylor catheter. Vital signs are stable. General: No acute distress. HEENT: Head exam is unremarkable. LUNGS: No audible rhonchi or wheezes. HEART: Rate and Rhythm are regular. ABDOMEN: Nontender. EXTREMITITES: No edema. Objective - Vital Signs Vital signs: Vital Signs Temp 97.8 F 12/04/22 08:08 Pulse 87 12/04/22 08:08 Resp 16 12/04/22 08:08 BP 122/79 12/04/22 08:08 Pulse Ox 93 L 12/04/22 08:08 FiO2 Intake & Output 12/03/22 12/04/22 12/04/22 18:59 06:59 18:59 Intake Total 1010 120 Output Total 2250 1570 Balance -1240 -1570 120 Intake: Intake, IV Titration 650 Amount Sodium Chloride 0.9% 1, 600 000 ml @ 50 mls/hr IV . Q20H [facility] Rx#:[id number] cefTRIAXone 2 gm In 50 Sodium Chloride 0.9% 50 ml @ 100 mls/hr IVPB Q24HR [facility] Rx#:[id number] Oral 360 120 Output: Urine 2250 1570 Uretheral (Taylor) 300 Other: Voiding Method Indwelling Catheter Indwelling Catheter Indwelling Catheter - Labs CBC & Chem 7: 12/02/22 06:54 12/03/22 06:57 Labs: Abnormal Lab Results - Last 24 Hours (Table) 12/03/22 12/03/22 12/03/22 Range/Units 11:34 16:40 20:03 POC Glucose (mg/dL) 282 H 162 H 222 H (70-110) mg/dL 12/04/22 Range/Units 06:06 POC Glucose (mg/dL) 115 H (70-110) mg/dL Microbiology - Last 24 Hours (Table) 12/01/22 09:37 Urine Culture - Final Urine,Catheterized Klebsiella pneumoniae Assessment and Plan Plan: Assessment: 1. Acute kidney injury secondary to vasomotor nephropathy from hypovolemia from vomiting and diarrhea. Creatinine 1.88 on admission - 0.77 yesterday. No hydronephrosis noted on CAT scan. 2. Hypokalemia from poor intake and hypomagnesemia. Replaced. 3. Hypomagnesemia from GI losses. On oral magnesium oxide. 4. Hypocalcemia secondary to acute kidney injury and PTH resistance from hypomagnesemia. Replaced. Better. PTH 154. Vitamin D level 46.8. 5. Metabolic acidosis secondary to acute kidney injury and GI losses. Improved. 6. UTI on antibiotics. Urine culture positive for Klebsiella. 7. Diabetes mellitus. Plan: Hep-Lock IV fluids. Replace electrolytes as needed. Encourage oral intake. Avoid nephrotoxins. Continue to monitor renal function and urine output.
[2022-12-04 11:34] LABS: Glucose,Whole Blood 183 mg/dL (70-110)
[2022-12-04 11:44] LABS: Basophils % (A) 0 %; Eosinophils % (A) 0 %; HCT 37.3 % (34.0-46.0); Lymphocytes # (A) 1.6 k/uL (1.0-4.8); Lymphocytes % (A) 17 %; MCH 28.9 pg (25.0-35.0); MCHC 32.2 g/dL (31.0-37.0); MCV 89.9 fL (80.0-100.0); Mean Platelet Volume 8.5; Monocytes # (A) 0.4 k/uL (0-1.0); Monocytes % (A) 5 %; Neutrophils # (A) 7.3 k/uL (1.3-7.7); Neutrophils % (A) 78 %; Platelet Count 149 k/uL (150-450); RBC 4.15 m/uL (3.80-5.40); RDW 14.4 % (11.5-15.5); WBC 9.5 k/uL (3.8-10.6)
[2022-12-04 12:01] LABS: African American GFR (CKD) >90 (>60 ml/min/1.73 sqM); Anion Gap 7 mmol/L; Blood Urea Nitrogen 15 mg/dL (7-17); Calcium 8.7 mg/dL (8.4-10.2); Carbon Dioxide 27 mmol/L (22-30); Chloride 103 mmol/L (98-107); Glucose 198 mg/dL (74-99); Magnesium 1.3 mg/dL (1.6-2.3); Non-African American GFR(CKD) >90 (>60 ml/min/1.73 sqM); Potassium 4.3 mmol/L (3.5-5.1); Sodium 137 mmol/L (137-145)
[2022-12-04] MEDS: ERTAPENEM 1 GM in SODIUM CHLORIDE 0.9% 50 ML IVPB SCH (16:13)
[2022-12-04 16:33] LABS: Glucose,Whole Blood 115 mg/dL (70-110)
[2022-12-04] MEDS: MAGNESIUM SULFATE-D5W PMX 1 GM in DEXTROSE/WATER 1 100ML.BAG IVPB SCH ×2 (17:05→18:51)
[2022-12-04 17:46] LABS: Appearance,Urine Clear (Clear); Bacteria,Urine Many /hpf; Bilirubin,Urine Negative (Negative); Blood,Urine Negative (Negative); Color,Urine Colorless; Glucose,Urine (UA) Negative (Negative); Ketones,Urine Negative (Negative); Leukocyte Esterase,Urine Trace (Negative); Mucus,Urine Many /hpf; Nitrite,Urine Negative (Negative); PH, Urine 7.5 (5.0-8.0); Protein,Urine Negative (Negative); Specific Gravity,Urine 1.004 (1.001-1.035); Squamous Epithelial Cell,Urine 2 /hpf (0-4); Urobilinogen,Urine <2.0 mg/dL (<2.0); WBC,Urine 3 /hpf (0-5)
[2022-12-04] MEDS: cloZAPine 100 MG TAB PO SCH (20:16)
[2022-12-04] MEDS: traZODone HCL 50 MG TAB PO PRN (20:16)
[2022-12-04 20:37] LABS: Glucose,Whole Blood 249 mg/dL (70-110)
--- NOTE | 2022-12-04 22:44 | PN ---
PROGRESS NOTE DATE OF SERVICE: 12/04/2022 SUBJECTIVE: This is a 56-year-old woman who was admitted with acute urinary tract infection with Klebsiella pneumonia which is ESBL, is being closely monitored. No chest pain. No palpitations. No fever. PHYSICAL EXAMINATION: VITAL SIGNS: Pulse is 87, blood pressure 120/70, respirations 16. CHEST: Clear to auscultation. CARDIOVASCULAR: S1, S2. ABDOMEN: Soft NERVOUS SYSTEM: Diffusely weak. LABORATORY DATA: Reviewed. ASSESSMENT: 1. Acute urinary tract infection with ESBL Klebsiella pneumonia present on admission with sepsis. 2. Left ankle pain. 3. Intractable nausea and vomiting. 4. Acute kidney injury. 5. Multiple medical issues. RECOMMENDATIONS: Recommend to continue current management. Continue symptomatic treatment. Otherwise, we will obtain Infectious Disease evaluation. Currently, the patient is on Rocephin. The prognosis guarded. PT/OT evaluation. Further recommendations to follow. MMODL / IJN: [id number] /
--- NOTE | 2022-12-04 22:54 | P.CONS ---
History of Present Illness - Reason for Consult Consult date: 12/04/22 - History of Present Illness Patient is a 56-year-old female with a past medical history significant for COPD diabetes mellitus hypertension seizure disorder and PE history of recurrent UTI presenting to the hospital 4 days ago for evaluation of mental status changes apparently the patient mother call the EMS and the patient daughter was not making any sense patient apparently was hallucinating and did have delusional thoughts patient did not have any fever and no fever has been recorded during this hospital stay patient denies having any headache or URI symptoms no chest pain shortness of breath or cough some nausea but no vomiting did have some lower abdominal dull aching colicky pain mild to moderate i ntensity without radiation patient also complaining of burning of urine and some hematuria and did have some diarrhea patient work-up did include elevated white count of 18.6 Wilker was mildly elevated did have a positive UA patient has been treated with the Rocephin however the urine culture not finalized with ESBL Klebsiella that has prompted this infectious disease consultation patient is reporting improvement in her urinary symptoms and hematuria has resolved Past Medical History Past Medical History: COPD, Diabetes Mellitus, GERD/Reflux, Hypertension, Osteoarthritis (OA), Pulmonary Embolus (PE), Seizure Disorder Additional Past Medical History / Comment(s): Hx of colon polyps, neuorgenic bladder, anemia, self caths at home, thyroid nodule, UTI with hospital admission september 2021- klebsiella treated with ceftin History of Any Multi-Drug Resistant Organisms: None Reported Past Surgical History: Back Surgery, Breast Surgery, Ear Surgery Additional Past Surgical History / Comment(s): hunter breast reduction, breast biopsy, bladder stimulator implant, skin grafts to ear Past Anesthesia/Blood Transfusion Reactions: No Reported Reaction Past Psychological History: Bipolar, Depression, Schizoaffective Disorder Smoking Status: Current some day smoker Past Alcohol Use History: None Reported Past Drug Use History: None Reported - Past Family History Father Family Medical History: Cancer Additional Family Medical History / Comment(s): lung Sister(s) Family Medical History: Cancer Additional Family Medical History / Comment(s): ovarian Medications and Allergies Home Medications Medication Instructions Recorded Confirmed Type cloZAPine [Clozaril] 200 mg PO HS 01/21/16 11/30/22 History fluPHENAZine decanoate [Prolixin 50 mg IM Q14D 01/21/16 11/30/22 History Decanoate] Tamsulosin [Flomax] 0.4 mg PO DAILY 03/13/17 11/30/22 History Omeprazole 20 mg PO BID PRN 07/22/20 11/30/22 History Apixaban [Eliquis] 5 mg PO BID 10/24/20 11/30/22 History fluvoxaMINE MALEATE [Luvox] 100 mg PO HS 10/24/20 11/30/22 History Atorvastatin [Lipitor] 40 mg PO DAILY 10/19/21 11/30/22 History Glimepiride [Amaryl] 4 mg PO BID 03/19/22 11/30/22 History Nicotine 21Mg/24Hr Patch [Habitrol] 1 patch TRANSDERM DAILY 03/19/22 11/30/22 History metFORMIN HCL ER [Glucophage XR] 500 mg PO BID 03/19/22 11/30/22 History sitaGLIPtin [Januvia] 100 mg PO DAILY 03/19/22 11/30/22 History Albuterol Inhaler [Ventolin Hfa 2 puff INHALATION RT-Q6H PRN 11/02/22 11/30/22 History Inhaler] Ergocalciferol (Vitamin D2) 1,250 mcg PO SA 11/02/22 11/30/22 History [Drisdol (50,000 Iu)] Metoprolol Tartrate [Lopressor] 25 mg PO BID 11/02/22 11/30/22 History Tiotropium Br/Olodaterol HCl 1 spray INHALATION RT-DAILY PRN 11/02/22 11/30/22 History [Stiolto Respimat Inhal [place]] methIMAzole [Tapazole] 5 mg PO DAILY 11/02/22 11/30/22 History propylthiouraciL [Propylthiouracil] 50 mg PO DAILY 11/02/22 11/30/22 History Ondansetron Odt [Zofran Odt] 4 mg PO Q8HR PRN #12 tab 11/30/22 11/30/22 Rx Sulfamethox-Tmp 800-160Mg [Bactrim 1 tab PO DIRECTED 11/30/22 11/30/22 History DS 800-160 mg] Allergies Allergy/AdvReac Type Severity Reaction Status Date / Time haloperidol [From Haldol] AdvReac Muscles Verified 11/30/22 18:33 freeze up in arms and hands haloperidol lactate AdvReac Muscles Verified 11/30/22 18:33 [From Haldol] freeze up in arms and hands Physical Exam Vitals: Vital Signs Temp Pulse Resp BP Pulse Ox 12/04/22 12:10 98.0 F 85 16 134/84 97 12/04/22 08:08 97.8 F 87 16 122/79 93 L 12/04/22 04:00 98.4 F 82 18 106/88 92 L 12/04/22 02:00 82 18 12/04/22 00:00 98.3 F 67 18 111/66 96 12/03/22 20:00 98.3 F 78 18 130/76 94 L 12/03/22 15:35 97.6 F 81 16 114/73 94 L Intake and Output 12/03/22 12/04/22 12/04/22 22:59 06:59 14:59 Intake Total 120 770 Output Total 550 1570 750 Balance -430 -1570 20 Intake: Intake, IV Titration 650 Amount Sodium Chloride 0.9% 1, 600 000 ml @ 50 mls/hr IV . Q20H [facility] Rx#:[id number] cefTRIAXone 2 gm In 50 Sodium Chloride 0.9% 50 ml @ 100 mls/hr IVPB Q24HR [facility] Rx#:[id number] Oral 120 120 Output: Urine 550 1570 750 Uretheral (Taylor) 300 Other: Voiding Method Indwelling Catheter Indwelling Catheter Indwelling Catheter # Bowel Movements 1 Results CBC & Chem 7: 12/04/22 10:47 12/04/22 10:47 Labs: Abnormal Lab Results - Last 24 Hours (Table) 12/03/22 12/03/22 12/04/22 Range/Units 16:40 20:03 06:06 Plt Count (150-450) k/uL Glucose (74-99) mg/dL POC Glucose (mg/dL) 162 H 222 H 115 H (70-110) mg/dL Magnesium (1.6-2.3) mg/dL 12/04/22 12/04/22 12/04/22 Range/Units 10:47 10:47 11:31 Plt Count 149 L (150-450) k/uL Glucose 198 H (74-99) mg/dL POC Glucose (mg/dL) 183 H (70-110) mg/dL Magnesium 1.3 L (1.6-2.3) mg/dL Microbiology - Last 24 Hours (Table) 12/01/22 09:37 Urine Culture - Final Urine,Catheterized Klebsiella pneumoniae Assessment and Plan Plan: 1patient with a positive urine culture with ESBL Klebsiella in this patient presented to hospital with mental status changes patient also have burning of urine and Hematuria concerning for symptomatic UTI, patient reported improvement in her symptoms however urine culture is growing ESBL which was not treated with a question of possible contamination 2-we will repeat her UA and a culture 3-for now discontinue Rocephin start the patient on Invanz while awaiting Repeat UA to be finalized 4-discharge antibiotics on the basis of repeat UA and clinical response We will follow on clinical condition and cultures to further adjust medication if needed Thank you for this consultation we will follow the patient along with you Dictation was produced using [employer] dictation software. please excuse any grammatical, word or spelling errors. Time with Patient: Greater than 30
[2022-12-05 05:46] LABS: Glucose,Whole Blood 183 mg/dL (70-110)
[2022-12-05] MEDS: INSULIN ASPART (NovoLOG) 100 UNIT/ML VIAL SQ SCH ×4 (06:16→22:12)
[2022-12-05] MEDS: MAGNESIUM OXIDE 400 MG TAB PO SCH ×2 (08:18→23:32)
[2022-12-05] MEDS: TAMSULOSIN 0.4 MG CAP.ER.24H PO SCH (08:18)
[2022-12-05] MEDS: GLIMEPIRIDE 4 MG TAB PO SCH ×2 (08:18→23:32)
[2022-12-05] MEDS: methIMAzole 5 MG TAB PO SCH (08:18)
[2022-12-05] MEDS: METOPROLOL TARTRATE 25 MG TAB PO SCH ×2 (08:19→23:32)
[2022-12-05] MEDS: LINAGLIPTIN 5 MG TABLET PO SCH (08:19)
[2022-12-05] MEDS: NICOTINE 21MG/24HR PATCH TRANSDERM SCH (08:19)
[2022-12-05] MEDS: metFORMIN 500 MG TAB PO SCH ×2 (08:19→23:32)
[2022-12-05] MEDS: ERTAPENEM 1 GM in SODIUM CHLORIDE 0.9% 50 ML IVPB SCH (08:19)
[2022-12-05] MEDS: APIXABAN 5 MG TAB PO SCH ×2 (08:19→23:31)
[2022-12-05] MEDS: ATORVASTATIN 40 MG TAB PO SCH (08:19)
[2022-12-05 11:40] LABS: Glucose,Whole Blood 226 mg/dL (70-110)
--- NOTE | 2022-12-05 11:42 | P.PN ---
Subjective Patient is seen for follow-up for acute kidney injury Status post IV fluids Renal function has improved back to baseline. No significant complaints today. Objective - Vital Signs Vital signs: Vital Signs Temp 98.2 F 12/05/22 08:00 Pulse 110 H 12/05/22 08:00 Resp 18 12/05/22 08:00 BP 125/89 12/05/22 08:00 Pulse Ox 92 L 12/05/22 08:01 FiO2 Intake & Output 12/04/22 12/05/22 12/05/22 18:59 06:59 18:59 Intake Total 1800 140 180 Output Total 750 2200 Balance 1050 -2060 180 Intake: IV 10 20 Invasive Line 4 10 20 Intake, IV Titration 650 Amount Sodium Chloride 0.9% 1, 600 000 ml @ 50 mls/hr IV . Q20H J[facility]ES Rx#:[id number] cefTRIAXone 2 gm In 50 Sodium Chloride 0.9% 50 ml @ 100 mls/hr IVPB Q24HR [facility] Rx#:[id number] Oral 1140 120 180 Output: Urine 750 2200 Uretheral (Taylor) 1500 Other: Voiding Method Indwelling Catheter Indwelling Catheter Indwelling Catheter # Bowel Movements 2 - Exam Awake, comfortable, no acute distress Alert oriented 3 Examination of the heart S1 and S2 Examination lungs bilateral breath sounds are heard abdomen is soft nontender Examination lower extremity shows no evidence of edema MEAT CARVER exam grossly intact - Labs CBC & Chem 7: 12/04/22 10:47 12/04/22 10:47 Labs: Abnormal Lab Results - Last 24 Hours (Table) 12/04/22 12/04/22 12/04/22 Range/Units 10:47 10:47 16:10 Plt Count 149 L (150-450) k/uL Glucose 198 H (74-99) mg/dL POC Glucose (mg/dL) (70-110) mg/dL Magnesium 1.3 L (1.6-2.3) mg/dL Ur Leukocyte Esterase Trace H (Negative) Urine Bacteria Many H (None) /hpf Urine Mucus Many H (None) /hpf 12/04/22 12/04/22 12/05/22 Range/Units 16:27 20:35 05:43 Plt Count (150-450) k/uL Glucose (74-99) mg/dL POC Glucose (mg/dL) 115 H 249 H 183 H (70-110) mg/dL Magnesium (1.6-2.3) mg/dL Ur Leukocyte Esterase (Negative) Urine Bacteria (None) /hpf Urine Mucus (None) /hpf Assessment and Plan Assessment: 1. Acute kidney injury secondary to vasomotor nephropathy from hypovolemia from vomiting and diarrhea. Creatinine 1.88 on admission - 0.7 yesterday. No hydronephrosis noted on CAT scan. 2. Hypokalemia from poor intake and hypomagnesemia. Replaced. 3. Hypomagnesemia from GI losses. On oral magnesium oxide. 4. Hypocalcemia secondary to acute kidney injury and PTH resistance from hypomagnesemia. Replaced. Better. PTH 154. Vitamin D level 46.8. 5. Metabolic acidosis secondary to acute kidney injury and GI losses. Improved. 6. UTI on antibiotics. Urine culture positive for Klebsiella. 7. Diabetes mellitus. Plan: Continue to encourage increase oral intake Monitor labs periodically.
[2022-12-05 12:58] LABS: African American GFR (CKD) >90 (>60 ml/min/1.73 sqM); Anion Gap 11 mmol/L; Blood Urea Nitrogen 17 mg/dL (7-17); Calcium 9.1 mg/dL (8.4-10.2); Carbon Dioxide 26 mmol/L (22-30); Chloride 100 mmol/L (98-107); Glucose 264 mg/dL (74-99); Non-African American GFR(CKD) 78 (>60 ml/min/1.73 sqM); Potassium 4.8 mmol/L (3.5-5.1); Sodium 137 mmol/L (137-145)
--- NOTE | 2022-12-05 14:01 | CDI ---
Documentation Clarification Form Date: From: Radha George Phone: [phone] Admit Date: 11/30/2022 11:41:00 PM Patient Name: Veronique Dukes Visit Number: [id number] Discharge Date: ATTENTION: The Clinical Documentation Specialists (CDI) and [facility] Coding Staff appreciate your assistance in clarifying documentation. Please respond to the clarification below the line at the bottom and electronically sign. The CDI & [facility] Coding staff will review the response and follow-up if needed. Please note: Queries are made part of the Legal Health Record. If you have any questions, please contact the author of this message via ITS. Dr. Jorge Guerrier UTI is documented Medical H&P on 12/01 and patient has a chronic humphries. Additional clarification regarding the etiology of the UTI is requested. History/Risk Factors: "56-year-old female with a known history of hypertension, diabetes type 2 [id number], hypothyroidism, COPD, history of PE, seizure disorder, neurogenic bladder/bladder stimulator implant with prior history of urinary tract infections, bipolar/depression/schizoaffective disorder and currently everyday smoker presents to ER with complaints of intractable nausea and vomiting and unable to take oral intake for the past 2 to 3 days." - Per Medical H&P on 12/01 Clinical Indicators: "Has chronic Humphries catheter." - Per Progress Note on 12/04 Per Flowsheet in chart: Urinary Catheter Present on Admission Urinalysis: WBC: 3, Bacteria: Many Urine culture: Klebsiella pneumoniae Lab results: WBC: 12/01 - 13.8, 12/02 - 9.1, 12/04 - 9.5 Treatment: Per Medical H&P "continued IV hydration with normal saline. Continue with antibiotics, ceftriaxone and follow-up urine culture report" Please clarify the etiology of the UTI, if known: [ ] Humphries catheter [ ] UTI not related to catheter/urostomy [ ] Other condition, please specify [ ] Unable to determine Answered in DC summary, "Acute urinary tract infection.Present on admission with failure of outpatient treatment and urine culture showing Klebsiella pneumonia with ESBL Sepsis , present on admission secondary to above most likely secondary to chronic indwelling Humphries catheter" [facility]
--- NOTE | 2022-12-05 14:56 | P.PN ---
Subjective Progress Note Date: 12/05/22 Patient is a 56-year-old female with a known history of hypertension, diabetes type 2 [id number]-nnfpqjnwz, hypothyroidism, COPD, history of PE, seizure disorder, neurogenic bladder/bladder stimulator implant with prior history of urinary tract infections, bipolar/depression/schizoaffective disorder and currently everyday smoker presents to ER with complaints of intractable nausea and vomiting and unable to take oral intake for the past 2 to 3 days. Patient is also having worsening psychiatric symptoms and no EMS was called by her mother because she was not making sense. She was also having hallucinating and having delusional thoughts. Patient was also found to have elevated heart rate. Was also complaining of lower abdominal discomfort. Was also having diarrhea. Patient is currently taking Bactrim for urinary tract infection. She has been having poor oral intake. Patient states that she developed the symptoms since started on Bactrim. Patient has been afebrile. No chest pain or shortness of breath. On admission patient was tachycardic. EKG showed sinus tachycardia with short VT interval CT head showed no acute intracranial process. Nonspecific white matter changes, likely secondary to chronic small vessel ischemic changes. Chest x-ray showed no acute cardiopulmonary process. CT of the abdomen/pelvis showed mild gastric distention otherwise no significant abnormality within the abdomen/pelvis within limitations of no contrast exam. Mild bilateral lower lobe dependent consolidation favored to represent atelectasis. Infectious process not excluded. Laboratory data showed WBC 18.6 hemoglobin 13.1 and platelets 176 Sodium 136 potassium 2.2 chloride 88 bicarb is 19 BUN 24 and creatinine 1.88 and blood sugar 416 on admission. Anion gap 29. Calcium 6.1 and magnesium less than 0.4, AST 37 ALT 45, troponin x1-20 TSH 3.54 and free T4 level is 1.79. Urinalysis showed cloudy with 3+ protein trace glucose large leukocyte esterase with elevated RBCs and WBCs patient was also having squamous epithelial cells. Coronavirus PCR not detected. 12/02/2022 Patient is seen and evaluated in follow-up today and was evaluated by psychiatry making adjustments to medications and reports does not meet criteria for inpatient psychiatric facility. Patient with significant weakness being evaluated by physical therapy and working on possibly ECF. Patient also being followed by nephrology as patient had multiple electrolyte abnormalities along with acute kidney injury and maintained on gentle IV hydration. Kidney function is improving and replacing electrolytes per protocol. Patient having difficulty with placing any weight on left ankle and will obtain ankle x-ray. 12/05/2022 Patient seen and evaluated in follow-up today mentation is improved. Patient continues with significant weakness working on ECF. Patient has been accepted although no bed available until Monday. Infectious disease following as well for urinary tract infection as the finalized culture showed Klebsiella with ESBL. Repeat urinalysis appears normal and will continue on Invanz for now and a short course of oral Ceftin on discharge. Nephrology following as well and recommending outpatient follow-up as labs and kidney functions have improved back to baseline. Patient is afebrile with no reports of chest pain or shortness of breath. Patient is tolerating diet with no reported nausea or vomiting. Review of systems: Constitutional: No reports of fatigue, fever, or chills Cardiovascular: No reports of chest pain or palpitations Respiratory: No reports of shortness of breath or cough GI: No reports of nausea, vomiting, or diarrhea : No reports of dysuria or retention Neurovascular: reports of generalized weakness, reports left ankle pain All medications have been reviewed Physical exam: Patient is sitting up in the bed, awake alert and orientedx2 baseline.. HEENT: Normocephalic. Neck is supple. Pupils reactive. Nostrils clear. Oral cavity is moist. Neck reveals no JVD, carotid bruits, or thyromegaly. CHEST EXAMINATION: Trachea is central. Symmetrical expansion. Lung calderon clear to auscultation and percussion. Bibasilar diminished sounds. CARDIAC: Normal S1, S2 with no gallops. No murmurs ABDOMEN: Soft. Bowel sounds present. Nontender. No organomegaly. No abdominal bruits. Extremities: reveal no edema. No clubbing or cyanosis. Left ankle pain on p alpation with no obvious deformities noted Neurologically awake, alert, oriented x2 with well-coordinated movements. Diffusely weak Skin: No rash or skin lesions. Psychiatric: Cooperative. Non-suicidal, Musculoskeletal: No joint swelling or deformity. Normal range of motion. Assessment: Acute urinary tract infection. Present on admission with failure of outpatient treatment and urine culture showing Klebsiella pneumonia with ESBL Sepsis , present on admission secondary to above most likely secondary to chronic indwelling Taylor catheter Left ankle pain, negative for fractures Intractable nausea and vomiting likely due to acute gastritis Acute kidney injury likely prerenal secondary to above. Creatinine 1.88 on admission. Anion gap metabolic acidosis secondary to acute kidney injury Hyperglycemia with uncontrolled diabetes type 2 [id number]-[id number] Hyperthyroidism Severe hypokalemia, hypomagnesemia due to poor oral intake Hypocalcemia Bibasilar atelectasis Mild transaminitis History of PE History of seizure disorder Neurogenic bladder with history of bladder stimulator implant placement Bipolar disorder/depression and schizoaffective disorder Currently everyday smoker GI prophylaxis with PPI DVT prophylaxis Full code Plan: Patient was continued IV hydration with nephrology following and kidney functions are back to baseline recommending outpatient follow-up Continue with antibiotics in the form of Invanz and infectious disease was consulted as urine cultures finalize with Klebsiella pneumonia with ESBL. Repeat urinalysis is negative and will continue Invanz for now and a short course of oral Ceftin on discharge Encouraged oral intake Patient will be continued on insulin sliding scale and Accu-Cheks before meals and at bedtime Appropriate home medications reviewed and resumed Recommend PT/OT therapy daily and patient will be going to ECF although no bed available until Monday Due to multiple complex medical issues, prognosis is guarded Discharge in 48 hours. The impression and plan of care has been dictated by Gogo Yepez Nurse Prac titioner as directed. Dr. Fareed MD I have performed a history and examination and MDM of this patient, discussed the same with the dictator, and agree with the dictator's assessment and plan as written ,documented as a scribe. Based on total visit time, I have performed more than 50% of the visit. Objective - Vital Signs Vital signs: Vital Signs Temp 98.2 F 12/05/22 08:00 Pulse 110 H 12/05/22 08:00 Resp 18 12/05/22 08:00 BP 125/89 12/05/22 08:00 Pulse Ox 92 L 12/05/22 08:01 FiO2 Intake & Output 12/04/22 12/05/22 12/05/22 18:59 06:59 18:59 Intake Total 1800 140 180 Output Total 750 2200 Balance 1050 -2060 180 Intake: IV 10 20 Invasive Line 4 10 20 Intake, IV Titration 650 Amount Sodium Chloride 0.9% 1, 600 000 ml @ 50 mls/hr IV . Q20H [facility] Rx#:[id number] cefTRIAXone 2 gm In 50 Sodium Chloride 0.9% 50 ml @ 100 mls/hr IVPB Q24HR [facility] Rx#:[id number] Oral 1140 120 180 Output: Urine 750 2200 Uretheral (Taylor) 1500 Other: Voiding Method Indwelling Catheter Indwelling Catheter # Bowel Movements 2 - Labs CBC & Chem 7: 12/04/22 10:47 12/05/22 11:24 Labs: Abnormal Lab Results - Last 24 Hours (Table) 12/04/22 12/04/22 12/04/22 Range/Units 10:47 10:47 11:31 Plt Count 149 L (150-450) k/uL Glucose 198 H (74-99) mg/dL POC Glucose (mg/dL) 183 H (70-110) mg/dL Magnesium 1.3 L (1.6-2.3) mg/dL Ur Leukocyte Esterase (Negative) Urine Bacteria (None) /hpf Urine Mucus (None) /hpf 12/04/22 12/04/22 12/04/22 Range/Units 16:10 16:27 20:35 Plt Count (150-450) k/uL Glucose (74-99) mg/dL POC Glucose (mg/dL) 115 H 249 H (70-110) mg/dL Magnesium (1.6-2.3) mg/dL Ur Leukocyte Esterase Trace H (Negative) Urine Bacteria Many H (None) /hpf Urine Mucus Many H (None) /hpf 12/05/22 Range/Units 05:43 Plt Count (150-450) k/uL Glucose (74-99) mg/dL POC Glucose (mg/dL) 183 H (70-110) mg/dL Magnesium (1.6-2.3) mg/dL Ur Leukocyte Esterase (Negative) Urine Bacteria (None) /hpf Urine Mucus (None) /hpf
[2022-12-05 16:43] LABS: Glucose,Whole Blood 163 mg/dL (70-110)
[2022-12-05 21:02] LABS: Glucose,Whole Blood 233 mg/dL (70-110)
[2022-12-05] MEDS ORDERED: ONDANSETRON 4 MG/2 ML VIAL IVP PRN (22:01)
[2022-12-05] MEDS: PANTOPRAZOLE 40 MG/10 ML VIAL IVP SCH (22:11)
[2022-12-05] MEDS: cloZAPine 100 MG TAB PO SCH (23:32)
[2022-12-05] MEDS: traZODone HCL 50 MG TAB PO PRN (23:32)
[2022-12-06 06:20] LABS: Glucose,Whole Blood 218 mg/dL (70-110)
[2022-12-06] MEDS: INSULIN ASPART (NovoLOG) 100 UNIT/ML VIAL SQ SCH ×4 (06:35→21:17)
[2022-12-06] MEDS: ERTAPENEM 1 GM in SODIUM CHLORIDE 0.9% 50 ML IVPB SCH (09:12)
[2022-12-06] MEDS: methIMAzole 5 MG TAB PO SCH (09:13)
[2022-12-06] MEDS: GLIMEPIRIDE 4 MG TAB PO SCH ×2 (09:13→21:16)
[2022-12-06] MEDS: NICOTINE 21MG/24HR PATCH TRANSDERM SCH (09:13)
[2022-12-06] MEDS: TAMSULOSIN 0.4 MG CAP.ER.24H PO SCH (09:13)
[2022-12-06] MEDS: metFORMIN 500 MG TAB PO SCH ×2 (09:13→21:15)
[2022-12-06] MEDS: METOPROLOL TARTRATE 25 MG TAB PO SCH ×2 (09:13→21:15)
[2022-12-06] MEDS: PANTOPRAZOLE 40 MG/10 ML VIAL IVP SCH ×2 (09:13→21:15)
[2022-12-06] MEDS: APIXABAN 5 MG TAB PO SCH ×2 (09:13→21:15)
[2022-12-06] MEDS: LINAGLIPTIN 5 MG TABLET PO SCH (09:14)
[2022-12-06] MEDS: ATORVASTATIN 40 MG TAB PO SCH (09:14)
[2022-12-06] MEDS: MAGNESIUM OXIDE 400 MG TAB PO SCH ×2 (09:14→21:16)
--- NOTE | 2022-12-06 11:15 | P.PN ---
Subjective Progress Note Date: 12/05/22 Principal diagnosis: ESBL Klebsiella urinary tract infection Patient is a 56-year-old female with a past medical history significant for COPD diabetes mellitus hypertension seizure disorder and PE history of recurrent UTI presenting to the hospital presented to hospital with mental status changes patient did have urinary symptoms of burning hematuria elevated white count concerning for UTI urine culture subsequently with ESBL Klebsiella. On today's evaluation that is 12/05/2022, the patient denies any fever or any chills, the patient is breathing comfortably on room air and no need for supplemental oxygen, patient denies abdominal pain and no nausea/vomiting /d iarrhea,the patient denies chest pain or cough, feeling better Patient did have a creatinine 0.83 repeat urinalysis relatively negative Objective - Vital Signs Vital signs: Vital Signs Temp 98.2 F 12/05/22 08:00 Pulse 87 12/05/22 12:00 Resp 18 12/05/22 12:00 BP 111/65 12/05/22 12:00 Pulse Ox 95 12/05/22 12:00 FiO2 Intake & Output 12/04/22 12/05/22 12/05/22 18:59 06:59 18:59 Intake Total 1800 140 180 Output Total 750 2200 Balance 1050 -2060 180 Intake: IV 10 20 Invasive Line 4 10 20 Intake, IV Titration 650 Amount Sodium Chloride 0.9% 1, 600 000 ml @ 50 mls/hr IV . Q20H [facility] Rx#:[id number] cefTRIAXone 2 gm In 50 Sodium Chloride 0.9% 50 ml @ 100 mls/hr IVPB Q24HR [facility] Rx#:[id number] Oral 1140 120 180 Output: Urine 750 2200 Uretheral (Taylor) 1500 Other: Voiding Method Indwelling Catheter Indwelling Catheter Indwelling Catheter # Bowel Movements 2 - Exam GENERAL DESCRIPTION: A middle-aged female lying in bed in no distress RESPIRATORY SYSTEM: Unlabored breathing , decreased breath sounds at bases HEART: S1 S2 regular rate and rhythm , ABDOMEN: Soft , no tenderness EXTREMITIES: No edema feet - Labs CBC & Chem 7: 12/04/22 10:47 12/05/22 11:24 Labs: Abnormal Lab Results - Last 24 Hours (Table) 12/04/22 12/04/22 12/04/22 Range/Units 16:10 16:27 20:35 POC Glucose (mg/dL) 115 H 249 H (70-110) mg/dL Ur Leukocyte Esterase Trace H (Negative) Urine Bacteria Many H (None) /hpf Urine Mucus Many H (None) /hpf 12/05/22 12/05/22 Range/Units 05:43 11:38 POC Glucose (mg/dL) 183 H 226 H (70-110) mg/dL Ur Leukocyte Esterase (Negative) Urine Bacteria (None) /hpf Urine Mucus (None) /hpf Assessment and Plan (1) Infection with ESBL Klebsiella oxytoca Current Visit: Yes Status: Acute Code(s): A49.8 - OTHER BACTERIAL INFECTIONS OF UNSPECIFIED SITE; Z16.12 - EXTENDED SPECTRUM BETA LACTAMASE (ESBL) RESISTANCE SNOMED Code(s): 7292732954 (2) UTI (urinary tract infection) Current Visit: Yes Status: Acute Code(s): N39.0 - URINARY TRACT INFECTION, SITE NOT SPECIFIED SNOMED Code(s): 91015675 Plan: 1patient with a positive urine culture with ESBL Klebsiella in this patient presented to hospital with mental status changes patient also have burning of urine and Hematuria concerning for symptomatic UTI, patient urine culture is growing ESBL with a question of possible contamination, and the patient repeat UA has shown overall improvement 2-patient to continue with Invanz while inpatient however transitioned to oral antibiotics on discharge, this was discussed with the admitting team Dictation was produced using [employer] dictation software. please excuse any grammatical, word or spelling errors. Time with Patient: Less than 30
--- NOTE | 2022-12-06 11:17 | P.PN ---
Subjective Progress Note Date: 12/06/22 Principal diagnosis: ESBL Klebsiella urinary tract infection Patient is a 56-year-old female with a past medical history significant for COPD diabetes mellitus hypertension seizure disorder and PE history of recurrent UTI presenting to the hospital presented to hospital with mental status changes patient did have urinary symptoms of burning hematuria elevated white count concerning for UTI urine culture subsequently with ESBL Klebsiella. On today's evaluation that is 12/06/2022, the patient, the patient remains to be afebrile the patient is breathing comfortably on room air, the patient denies having any chest pain shortness of breath or cough, patient denies abdominal pain and no nausea/vomiting /diarrhea, patient mentioned feeling better and no new symptom Patient did have a creatinine 0.83 as of yesterday labs from this morning are pending repeat urinalysis relatively negative Objective - Vital Signs Vital signs: Vital Signs Temp 97.5 F L 12/06/22 08:00 Pulse 90 12/06/22 08:00 Resp 18 12/06/22 08:00 BP 94/63 12/06/22 08:00 Pulse Ox 95 12/06/22 08:00 FiO2 Intake & Output 12/05/22 12/06/22 12/06/22 18:59 06:59 18:59 Intake Total 500 0 Output Total 450 1575 200 Balance 50 -1575 -200 Intake: Oral 500 0 Output: Urine 450 1075 200 Uretheral (Taylor) 1075 200 Emesis 500 Other: Voiding Method Indwelling Catheter Indwelling Catheter Indwelling Catheter # Voids 0 # Bowel Movements 1 1 # Emeses 2 - Exam GENERAL DESCRIPTION: A middle-aged female lying in bed in no distress RESPIRATORY SYSTEM: Unlabored breathing , decreased breath sounds at bases HEART: S1 S2 regular rate and rhythm , ABDOMEN: Soft , no tenderness EXTREMITIES: No edema feet - Labs CBC & Chem 7: 12/04/22 10:47 12/05/22 11:24 Labs: Abnormal Lab Results - Last 24 Hours (Table) 12/05/22 12/05/22 12/05/22 Range/Units 11:24 11:38 16:41 Glucose 264 H (74-99) mg/dL POC Glucose (mg/dL) 226 H 163 H (70-110) mg/dL 12/05/22 12/06/22 Range/Units 21:00 06:18 Glucose (74-99) mg/dL POC Glucose (mg/dL) 233 H 218 H (70-110) mg/dL Assessment and Plan (1) Infection with ESBL Klebsiella oxytoca Current Visit: Yes Status: Acute Code(s): A49.8 - OTHER BACTERIAL INFECTIONS OF UNSPECIFIED SITE; Z16.12 - EXTENDED SPECTRUM BETA LACTAMASE (ESBL) RESISTANCE SNOMED Code(s): 3498292401 (2) UTI (urinary tract infection) Current Visit: Yes Status: Acute Code(s): N39.0 - URINARY TRACT INFECTION, SITE NOT SPECIFIED SNOMED Code(s): 76795206 Plan: 1patient with a positive urine culture with ESBL Klebsiella in this patient presented to hospital with mental status changes patient also have burning of urine and Hematuria concerning for symptomatic UTI, patient urine culture is growing ESBL with a question of possible contamination, and the patient repeat UA has shown overall improvement 2-patient to continue with Invanz while inpatient however plan to finish therapy the short course of oral Ceftin on discharge Dictation was produced using [employer] dictation software. please excuse any grammatical, word or spelling errors. Time with Patient: Less than 30
[2022-12-06 11:39] LABS: Glucose,Whole Blood 114 mg/dL (70-110)
[2022-12-06 12:50] VITALS: BMI 29.2
--- NOTE | 2022-12-06 12:54 | P.PN ---
Subjective Patient is seen for follow-up for acute kidney injury Status post IV fluids Renal function has improved back to baseline. No significant complaints today. Objective - Vital Signs Vital signs: Vital Signs Temp 97.5 F L 12/06/22 08:00 Pulse 90 12/06/22 08:00 Resp 18 12/06/22 08:00 BP 94/63 12/06/22 08:00 Pulse Ox 95 12/06/22 08:00 FiO2 Intake & Output 12/05/22 12/06/22 12/06/22 18:59 06:59 18:59 Intake Total 500 0 Output Total 450 1575 200 Balance 50 -1575 -200 Weight 70.307 kg Intake: Oral 500 0 Output: Urine 450 1075 200 Uretheral (Taylor) 1075 200 Emesis 500 Other: Voiding Method Indwelling Catheter Indwelling Catheter Indwelling Catheter # Voids 0 # Bowel Movements 1 1 # Emeses 2 - Exam Awake, comfortable, no acute distress Alert oriented 3 Examination of the heart S1 and S2 Examination lungs bilateral breath sounds are heard abdomen is soft nontender Examination lower extremity shows no evidence of edema 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 Acute kidney injury secondary to vasomotor nephropathy from hypovolemia from vomiting and diarrhea. Creatinine 1.88 on admission - 0.8 yesterday. No hy dronephrosis noted on CAT scan. 2. Hypokalemia from poor intake and hypomagnesemia. Replaced. 3. Hypomagnesemia from GI losses. On oral magnesium oxide. 4. Hypocalcemia secondary to acute kidney injury and PTH resistance from hypomagnesemia. Replaced. Better. PTH 154. Vitamin D level 46.8. 5. Metabolic acidosis secondary to acute kidney injury and GI losses. Improved. 6. UTI on antibiotics. Urine culture positive for Klebsiella. 7. Diabetes mellitus. Plan: Continue to encourage increase oral intake Monitor labs periodically. Antibiotics as per ID
[2022-12-06 16:22] LABS: Glucose,Whole Blood 168 mg/dL (70-110)
[2022-12-06] MEDS: METOCLOPRAMIDE 5 MG/ML 2 ML VIAL IVP SCH (17:27)
[2022-12-06 20:39] LABS: Glucose,Whole Blood 243 mg/dL (70-110)
[2022-12-06] MEDS: cloZAPine 100 MG TAB PO SCH (21:16)
[2022-12-07] MEDS: METOCLOPRAMIDE 5 MG/ML 2 ML VIAL IVP SCH ×3 (00:24→11:25)
--- NOTE | 2022-12-07 05:37 | P.PN ---
Subjective Progress Note Date: 12/06/22 Patient is a 56-year-old female with a known history of hypertension, diabetes type 2 [id number], hypothyroidism, COPD, history of PE, seizure disorder, neurogenic bladder/bladder stimulator implant with prior history of urinary tract infections, bipolar/depression/schizoaffective disorder and currently everyday smoker presents to ER with complaints of intractable nausea and vomiting and unable to take oral intake for the past 2 to 3 days. Patient is also having worsening psychiatric symptoms and no EMS was called by her mother because she was not making sense. She was also having hallucinating and having delusional thoughts. Patient was also found to have elevated heart rate. Was also complaining of lower abdominal discomfort. Was also having diarrhea. Patient is currently taking Bactrim for urinary tract infection. She has been having poor oral intake. Patient states that she developed the symptoms since started on Bactrim. Patient has been afebrile. No chest pain or shortness of breath. On admission patient was tachycardic. EKG showed sinus tachycardia with short CA interval CT head showed no acute intracranial process. Nonspecific white matter changes, likely secondary to chronic small vessel ischemic changes. Chest x-ray showed no acute cardiopulmonary process. CT of the abdomen/pelvis showed mild gastric distention otherwise no significant abnormality within the abdomen/pelvis within limitations of no contrast exam. Mild bilateral lower lobe dependent consolidation favored to represent atelectasis. Infectious process not excluded. Laboratory data showed WBC 18.6 hemoglobin 13.1 and platelets 176 Sodium 136 potassium 2.2 chloride 88 bicarb is 19 BUN 24 and creatinine 1.88 and blood sugar 416 on admission. Anion gap 29. Calcium 6.1 and magnesium less than 0.4, AST 37 ALT 45, troponin x1-20 TSH 3.54 and free T4 level is 1.79. Urinalysis showed cloudy with 3+ protein trace glucose large leukocyte esterase with elevated RBCs and WBCs patient was also having squamous epithelial cells. Coronavirus PCR not detected. 12/02/2022 Patient is seen and evaluated in follow-up today and was evaluated by psychiatry making adjustments to medications and reports does not meet criteria for inpatient psychiatric facility. Patient with significant weakness being evaluated by physical therapy and working on possibly ECF. Patient also being followed by nephrology as patient had multiple electrolyte abnormalities along with acute kidney injury and maintained on gentle IV hydration. Kidney function is improving and replacing electrolytes per protocol. Patient having difficulty with placing any weight on left ankle and will obtain ankle x-ray. 12/05/2022 Patient seen and evaluated in follow-up today mentation is improved. Patient continues with significant weakness working on ECF. Patient has been accepted although no bed available until Monday. Infectious disease following as well for urinary tract infection as the finalized culture showed Klebsiella with ESBL. Repeat urinalysis appears normal and will continue on Invanz for now and a short course of oral Ceftin on discharge. Nephrology following as well and recommending outpatient follow-up as labs and kidney functions have improved back to baseline. Patient is afebrile with no reports of chest pain or shortness of breath. Patient is tolerating diet with no reported nausea or vomiting. 12/06/2022 Patient is seen and evaluated in follow-up today reporting today is [birth year] birthday. Patient's mentation is improved and patient remains afebrile. Patient is maintained on Invanz with infectious disease following as urine culture finalized with ESBL in Klebsiella. Patient did have a brief episode of nausea with vomiting yesterday although none today and will continue with Reglan along with as needed Zofran. Sister who is her guardian is concerned she continues to be vomiting and not tolerating oral intake. Discussed with family about repeat urine cultures as well with repeat urinalysis being negative and patient will continue short course of oral Ceftin on discharge. Patient continues with significant weakness and is being scheduled to go to ECF. Patient was previously independent per sister. Will follow up on repeat labs and replace electrolytes per protocol. Review of systems: Constitutional: No reports of fatigue, fever, or chills Cardiovascular: No reports of chest pain or palpitations Respiratory: No reports of shortness of breath or cough GI: No reports of nausea, vomiting, or diarrhea : No reports of dysuria or retention Neurovascular: reports of generalized weakness All medications have been reviewed Physical exam: Patient is sitting up in the bed, awake alert and orientedx2 baseline.. HEENT: Normocephalic. Neck is supple. Pupils reactive. Nostrils clear. Oral cavity is moist. Neck reveals no JVD, carotid bruits, or thyromegaly. CHEST EXAMINATION: Trachea is central. Symmetrical expansion. Lung calderon clear to auscultation and percussion. Bibasilar diminished sounds. CARDIAC: Normal S1, S2 with no gallops. No murmurs ABDOMEN: Soft. Bowel sounds present. Nontender. No organomegaly. No abdominal bruits. Extremities: reveal no edema. No clubbing or cyanosis. Left ankle pain on palpation with no obvious deformities noted Neurologically awake, alert, oriented x2 with well-coordinated movements. Diffusely weak Skin: No rash or skin lesions. Psychiatric: Cooperative. Non-suicidal, Musculoskeletal: No joint swelling or deformity. Normal range of motion. Assessment: Acute urinary tract infection. Present on admission with failure of outpatient treatment and urine culture showing Klebsiella pneumonia with ESBL Sepsis , present on admission secondary to above most likely secondary to chronic indwelling Taylor catheter Left ankle pain, negative for fractures Intractable nausea and vomiting likely due to acute gastritis Acute kidney injury likely prerenal secondary to above. Creatinine 1.88 on admission. Anion gap metabolic acidosis secondary to acute kidney injury Hyperglycemia with uncontrolled diabetes type 2 [id number] Hyperthyroidism Severe hypokalemia, hypomagnesemia due to poor oral intake Hypocalcemia Bibasilar atelectasis Mild transaminitis History of PE History of seizure disorder Neurogenic bladder with history of bladder stimulator implant placement Bipolar disorder/depression and schizoaffective disorder Currently everyday smoker GI prophylaxis with PPI DVT prophylaxis Full code Plan: Patient was continued IV hydration with nephrology following and kidney functions are back to baseline recommending outpatient follow-up. Will continue gentle IV hydration overnight and follow-up labs Patient was maintained on Invanz per infectious disease with Klebsiella pneumon ia with ESBL in the urine. Repeat urinalysis is negative and will continue a short course of oral Ceftin on discharge Encouraged oral intake and recommend aspiration precautions with head of the bed elevated 45 at all times Patient will be continued on insulin sliding scale and Accu-Cheks before meals and at bedtime Appropriate home medications reviewed and resumed Recommend PT/OT therapy daily and patient will be going to ECF and currently no bed available until Monday Due to multiple complex medical issues, prognosis is guarded Discharge in 24 hours. The impression and plan of care has been dictated by Gogo Yepez, Nurse Practitioner as directed. Dr. Bernardo MD I have performed a history and examination and MDM of this patient, discussed the same with the dictator, and agree with the dictator's assessment and plan as written ,documented as a scribe. Based on total visit time, I have performed more than 50% of the visit. Objective - Vital Signs Vital signs: Vital Signs Temp 97.6 F 12/07/22 04:00 Pulse 59 L 12/07/22 04:00 Resp 16 12/07/22 04:00 BP 95/68 12/07/22 04:00 Pulse Ox 92 L 12/07/22 04:00 FiO2 Intake & Output 12/06/22 12/06/22 12/07/22 06:59 18:59 06:59 Intake Total 0 1180 Output Total 4021 774 6514 Balance -1575 780 -1000 Weight 70.307 kg Intake: Oral 0 1180 Output: Urine 9667 107 8210 Uretheral (Taylor) 1075 400 500 Emesis 500 Other: Voiding Method Indwelling Catheter Indwelling Catheter Indwelling Catheter # Voids 0 # Bowel Movements 1 1 # Emeses 2 - Labs CBC & Chem 7: 12/04/22 10:47 12/05/22 11:24 Labs: Abnormal Lab Results - Last 24 Hours (Table) 12/06/22 12/06/22 12/06/22 Range/Units 06:18 11:37 16:20 POC Glucose (mg/dL) 218 H 114 H 168 H (70-110) mg/dL 12/06/22 Range/Units 20:36 POC Glucose (mg/dL) 243 H (70-110) mg/dL
[2022-12-07 06:13] LABS: Glucose,Whole Blood 139 mg/dL (70-110)
[2022-12-07] MEDS: INSULIN ASPART (NovoLOG) 100 UNIT/ML VIAL SQ SCH ×2 (06:20→11:39)
[2022-12-07] MEDS: NICOTINE 21MG/24HR PATCH TRANSDERM SCH (08:08)
[2022-12-07] MEDS: methIMAzole 5 MG TAB PO SCH (08:08)
[2022-12-07] MEDS: METOPROLOL TARTRATE 25 MG TAB PO SCH (08:08)
[2022-12-07] MEDS: ATORVASTATIN 40 MG TAB PO SCH (08:08)
[2022-12-07] MEDS: metFORMIN 500 MG TAB PO SCH (08:08)
[2022-12-07] MEDS: MAGNESIUM OXIDE 400 MG TAB PO SCH (08:08)
[2022-12-07] MEDS: TAMSULOSIN 0.4 MG CAP.ER.24H PO SCH (08:08)
[2022-12-07] MEDS: GLIMEPIRIDE 4 MG TAB PO SCH (08:08)
[2022-12-07] MEDS: APIXABAN 5 MG TAB PO SCH (08:08)
[2022-12-07] MEDS: PANTOPRAZOLE 40 MG/10 ML VIAL IVP SCH (08:08)
[2022-12-07] MEDS: LINAGLIPTIN 5 MG TABLET PO SCH (08:08)
[2022-12-07 11:36] LABS: Glucose,Whole Blood 168 mg/dL (70-110)
--- NOTE | 2022-12-07 12:02 | P.PN ---
Subjective Progress Note Date: 12/07/22 Principal diagnosis: ESBL Klebsiella urinary tract infection Patient is a 56-year-old female with a past medical history significant for COPD diabetes mellitus hypertension seizure disorder and PE history of recurrent UTI presenting to the hospital presented to hospital with mental status changes patient did have urinary symptoms of burning hematuria elevated white count concerning for UTI urine culture subsequently with ESBL Klebsiella. On today's evaluation that is 12/07/2022, the patient denies any fever or any chills, the patient is breathing comfortably on room air and no need for supplemental oxygen, the patient denies chest pain or cough, patient denies n ausea/vomiting and no diarrhea has been reported, patient is feeling better Patient did have white count of 9.5 as of 12/04/2022 and a creatinine of 0.83 as of 12/05/2022, repeat UA on 12/04/2022 no WBC Objective - Vital Signs Vital signs: Vital Signs Temp 97.7 F 12/07/22 11:56 Pulse 81 12/07/22 11:56 Resp 16 12/07/22 11:56 BP 96/59 12/07/22 11:56 Pulse Ox 91 L 12/07/22 11:56 FiO2 Intake & Output 12/06/22 12/07/22 12/07/22 18:59 06:59 18:59 Intake Total 1180 480 Output Total 400 1000 500 Balance 780 -1000 -20 Weight 70.307 kg Intake: Oral 1180 480 Output: Urine 400 1000 500 Uretheral (Taylor) 400 500 Other: Voiding Method Indwelling Catheter Indwelling Catheter Indwelling Catheter # Bowel Movements 1 1 - Exam GENERAL DESCRIPTION: A middle-aged female lying in bed in no distress RESPIRATORY SYSTEM: Unlabored breathing , decreased breath sounds at bases HEART: S1 S2 regular rate and rhythm , ABDOMEN: Soft , no tenderness EXTREMITIES: No edema feet - Labs CBC & Chem 7: 12/04/22 10:47 12/05/22 11:24 Labs: Abnormal Lab Results - Last 24 Hours (Table) 12/06/22 12/06/22 12/07/22 Range/Units 16:20 20:36 06:11 POC Glucose (mg/dL) 168 H 243 H 139 H (70-110) mg/dL 12/07/22 Range/Units 11:34 POC Glucose (mg/dL) 168 H (70-110) mg/dL Assessment and Plan (1) Infection with ESBL Klebsiella oxytoca Current Visit: Yes Status: Acute Code(s): A49.8 - OTHER BACTERIAL INFECTIONS OF UNSPECIFIED SITE; Z16.12 - EXTENDED SPECTRUM BETA LACTAMASE (ESBL) RESISTANCE SNOMED Code(s): 4630428107 (2) UTI (urinary tract infection) Current Visit: Yes Status: Acute Code(s): N39.0 - URINARY TRACT INFECTION, SITE NOT SPECIFIED SNOMED Code(s): 92433324 Plan: 1patient with a positive urine culture with ESBL Klebsiella in this patient presented to hospital with mental status changes patient also have burning of urine and Hematuria concerning for symptomatic UTI, patient urine culture is growing ESBL with a question of possible contamination, and the patient repeat UA has shown overall improvement, positive urine culture more likely contamination 2-patient to continue with Invanz while inpatient however plan to finish therapy the short course of oral Ceftin on discharge this has been discussed again with the SAFETY EQUIPMENT TESTER for admitting team Dictation was produced using [employer] dictation software. please excuse any grammatical, word or spelling errors. Time with Patient: Less than 30
[2022-12-07 12:12] VITALS: BP 96/59; PULSE 81; RESP 16; TEMP 97.7
[2022-12-07 12:28] LABS: Basophils % (A) 0 %; Eosinophils % (A) 0 %; HCT 35.7 % (34.0-46.0); HGB 11.7 gm/dL (11.4-16.0); Lymphocytes % (A) 26 %; MCH 29.3 pg (25.0-35.0); MCHC 32.7 g/dL (31.0-37.0); MCV 89.5 fL (80.0-100.0); Mean Platelet Volume 8.9; Monocytes # (A) 0.4 k/uL (0-1.0); Monocytes % (A) 5 %; Neutrophils # (A) 5.4 k/uL (1.3-7.7); Neutrophils % (A) 68 %; Platelet Count 166 k/uL (150-450); RBC 3.99 m/uL (3.80-5.40); RDW 14.2 % (11.5-15.5)
[2022-12-07 12:55] LABS: African American GFR (CKD) 62 (>60 ml/min/1.73 sqM); Anion Gap 6 mmol/L; Blood Urea Nitrogen 31 mg/dL (7-17); Calcium 8.7 mg/dL (8.4-10.2); Carbon Dioxide 29 mmol/L (22-30); Chloride 101 mmol/L (98-107); Glucose 166 mg/dL (74-99); Non-African American GFR(CKD) 54 (>60 ml/min/1.73 sqM); Potassium 4.8 mmol/L (3.5-5.1); Sodium 136 mmol/L (137-145)
--- NOTE | 2022-12-07 13:37 | P.DS ---
Providers Date of admission: 11/30/22 23:41 Expected date of discharge: 12/07/22 Attending physician: Jorge Guerrier Consults: 11/30/22 23:38 Consult Physician Routine Consulting Provider: Patrick Santana Consult Reason/Comments: electrolyte abnormalities Do you want consulting provider notified?: Yes Consult Physician Routine Consulting Provider: Fredy Richter Consult Reason/Comments: acute psychosis Do you want consulting provider notified?: Already Contacted 12/04/22 12:24 Consult Physician Routine Consulting Provider: Hank Webb Consult Reason/Comments: ESBL KLEBSIELLA Do you want consulting provider notified?: Yes Primary care physician: Gamal Stuart Hospital Course: Final diagnosis Acute urinary tract infection. Present on admission with failure of outpatient treatment and urine culture showing Klebsiella pneumonia with ESBL Sepsis , present on admission secondary to above most likely secondary to chronic indwelling Taylor catheter Left ankle pain, negative for fractures Intractable nausea and vomiting likely due to acute gastritis Acute kidney injury likely prerenal secondary to above. Creatinine 1.88 on admission. Anion gap metabolic acidosis secondary to acute kidney injury Hyperglycemia with uncontrolled diabetes type 2 [id number] Hyperthyroidism Severe hypokalemia, hypomagnesemia due to poor oral intake Hypocalcemia Bibasilar atelectasis Mild transaminitis History of PE History of seizure disorder Neurogenic bladder with history of bladder stimulator implant placement Bipolar disorder/depression and schizoaffective disorder Currently everyday smoker GI prophylaxis with PPI DVT prophylaxis Full code Discharge disposition Patient is being discharged in a stable condition with guarded prognosis to [facility] . Patient will follow-up with Dr. Stuart in the outpatient setting upon discharge. Patient is to continue with oral Ceftin 500 mg twice daily for the next 1 week and outpatient follow-up with nephrology and [facility] as scheduled. Total time taken is greater than 35 minutes. Hospital course This is a 57-year-old female who was recently admitted with nausea vomiting with concerns of acute urinary tract infection. Patient had been previously straight cathing although requiring indwelling Taylor catheter and was seen in the outpatient setting by urology started on Bactrim. Patient had worsening symp toms and not tolerating any oral intake and not to take any medications and patient has an extensive psychiatric history and was not taking her psychiatric medications. Patient with significant weakness and falling was brought here for further evaluation. Patient was found to have a urinary tract infection with cultures growing Klebsiella pneumonia with ESBL. Indwelling Taylor catheter replaced and patient was maintained on antibiotics with infectious disease following. Repeat urinalysis is negative and infectious disease recommends continuing on oral Ceftin twice daily for the next 7 days to complete the course. Patient having intermittent episodes of nausea and vomiting that is controlled with as needed medications. Recommend continue with Reglan as needed and/or Zofran. Patient also had mildly elevated kidney functions of 1.12 and will continue to hold metformin and continue sliding scale with Accu-Cheks before meals and at bedtime. Patient is a diabetic and would recommend c onsistent carb diet. Patient is medically stable for discharge today and will be going to ECF as patient was evaluated by physical therapy recommending rehab. Please refer to the consultation notes for further HPI. Currently no reports of chest pain, shortness of breath, or palpitations. Patient is afebrile. No reports of nausea or vomiting and patient is tolerating diet. [facility]. High risk for readmission given patient's significant comorbidities and noncompliance with medications Physical exam: Gen: This is a 57-year-old female who is awake, alert and oriented 2-3, baseline, well-developed, elderly-appearing HEENT: Head is atraumatic, normocephalic. Pupils equal, round. Sclerae is anicteric. NECK: Supple. No JVD. No lymphadenopathy. No thyromegaly. LUNGS: Clear to auscultation. No wheezes or rhonchi. No intercostal retractions. HEART: Regular rate and rhythm. No murmur. ABDOMEN: Soft. Bowel sounds are present. No masses. No tenderness. EXTREMITIES: No pedal edema. No calf tenderness. NEUROLOGICAL: Patient is awake, alert and oriented x3. Cranial nerves 2 through 12 are grossly intact. Please refer to medication reconciliation sheet for a list of medications. The impression and plan of care has been dictated by Gogo Yepez, Nurse Practitioner as directed. Dr. Bernardo MD I have performed a history and examination and MDM of this patient, discussed the same with the dictator, and agree with the dictator's assessment and plan as written ,documented as a scribe. Based on total visit time, I have performed more than 50% of the visit. Patient Condition at Discharge: Fair Plan - Discharge Summary Discharge Rx Participant: Yes New Discharge Prescriptions: New Ipratropium Nebulized [Atrovent Nebulized 0.2 MG/ML] 0.5 mg INHALATION RT-QID PRN ml PRN Reason: Shortness Of Breath cefUROXime axetiL [Cefuroxime] 500 mg PO BID 7 Days #14 tab Magnesium Oxide [Mag-Ox] 400 mg PO BID tab Metoclopramide [Reglan] 5 mg PO TID PRN #20 tab PRN Reason: Nausea Acetaminophen Tab [Tylenol] 650 mg PO Q6HR PRN tab PRN Reason: Mild Pain Or Fever > 100.5 traZODone HCL [Desyrel] 50 mg PO HS PRN tab PRN Reason: Insomnia INSULIN ASPART (NovoLOG) [NovoLOG (formulary)] 0 unit SQ ACHS each Continue fluPHENAZine decanoate [Prolixin Decanoate] 50 mg IM Q14D cloZAPine [Clozaril] 200 mg PO HS Tamsulosin [Flomax] 0.4 mg PO DAILY Omeprazole 20 mg PO BID PRN PRN Reason: GERDS Apixaban [Eliquis] 5 mg PO BID Atorvastatin [Lipitor] 40 mg PO DAILY Glimepiride [Amaryl] 4 mg PO BID metFORMIN HCL ER [Glucophage XR] 500 mg PO BID sitaGLIPtin [Januvia] 100 mg PO DAILY Ergocalciferol (Vitamin D2) [Drisdol (50,000 Iu)] 1,250 mcg PO SA methIMAzole [Tapazole] 5 mg PO DAILY Metoprolol Tartrate [Lopressor] 25 mg PO BID fluvoxaMINE MALEATE [Luvox] 100 mg PO HS Nicotine 21Mg/24Hr Patch [Habitrol] 1 patch TRANSDERM DAILY Albuterol Inhaler [Ventolin Hfa Inhaler] 2 puff INHALATION RT-Q6H PRN PRN Reason: Shortness Of Breath Tiotropium Br/Olodaterol HCl [Stiolto Respimat Inhal [place]] 1 spray INHALATION RT-DAILY PRN PRN Reason: Shortness Of Breath Ondansetron Odt [Zofran ODT] 4 mg PO Q8HR PRN #12 tab PRN Reason: Nausea Cholecalciferol (Vitamin D3) [Vitamin D3] 1,000 units PO DAILY LORazepam [Ativan] 0.5 mg PO DAILY PRN #2 tab PRN Reason: Anxiety Discontinued propylthiouraciL [Propylthiouracil] 50 mg PO DAILY Sulfamethox-Tmp 800-160Mg [Bactrim DS 800-160 mg] 1 tab PO DIRECTED Discharge Medication List cloZAPine [Clozaril] 200 mg PO HS 01/21/16 [History] fluPHENAZine decanoate [Prolixin Decanoate] 50 mg IM Q14D 01/21/16 [History] Tamsulosin [Flomax] 0.4 mg PO DAILY 03/13/17 [History] Omeprazole 20 mg PO BID PRN 07/22/20 [History] Apixaban [Eliquis] 5 mg PO BID 10/24/20 [History] fluvoxaMINE MALEATE [Luvox] 100 mg PO HS 10/24/20 [History] Atorvastatin [Lipitor] 40 mg PO DAILY 10/19/21 [History] Glimepiride [Amaryl] 4 mg PO BID 03/19/22 [History] Nicotine 21Mg/24Hr Patch [Habitrol] 1 patch TRANSDERM DAILY 03/19/22 [History] metFORMIN HCL ER [Glucophage XR] 500 mg PO BID 03/19/22 [History] sitaGLIPtin [Januvia] 100 mg PO DAILY 03/19/22 [History] Albuterol Inhaler [Ventolin Hfa Inhaler] 2 puff INHALATION RT-Q6H PRN 11/02/22 [History] Ergocalciferol (Vitamin D2) [Drisdol (50,000 Iu)] 1,250 mcg PO SA 11/02/22 [History] Metoprolol Tartrate [Lopressor] 25 mg PO BID 11/02/22 [History] Tiotropium Br/Olodaterol HCl [Stiolto Respimat Inhal [place]] 1 spray INHALATION RT-DAILY PRN 11/02/22 [History] methIMAzole [Tapazole] 5 mg PO DAILY 11/02/22 [History] Ondansetron Odt [Zofran ODT] 4 mg PO Q8HR PRN #12 tab 11/30/22 [Rx] Acetaminophen Tab [Tylenol] 650 mg PO Q6HR PRN tab 12/07/22 [Rx] Cholecalciferol (Vitamin D3) [Vitamin D3] 1,000 units PO DAILY 12/07/22 [History] INSULIN ASPART (NovoLOG) [NovoLOG (formulary)] 0 unit SQ ACHS each 12/07/22 [Rx] Ipratropium Nebulized [Atrovent Nebulized 0.2 MG/ML] 0.5 mg INHALATION RT-QID PRN ml 12/07/22 [Rx] LORazepam [Ativan] 0.5 mg PO DAILY PRN #2 tab 12/07/22 [Rx] Magnesium Oxide [Mag-Ox] 400 mg PO BID tab 12/07/22 [Rx] Metoclopramide [Reglan] 5 mg PO TID PRN #20 tab 12/07/22 [Rx] cefUROXime axetiL [Cefuroxime] 500 mg PO BID 7 Days #14 tab 12/07/22 [Rx] traZODone HCL [Desyrel] 50 mg PO HS PRN tab 12/07/22 [Rx] Follow up Appointment(s)/Referral(s): Gamal Stuart DO [Primary Care Provider] - 1-2 days Smith Hoover MD [STAFF PHYSICIAN] - 1 Week Patient Instructions/Handouts: Hypokalemia (DC), Hypomagnesemia (DC), Catheter- associated Urinary Tract Infection (DC) Activity/Diet/Wound Care/Special Instructions: Patient is going to [place] Activity as tolerated Continue Reglan 3 times a day Continue Accu-Cheks before meals and at bedtime and continue sliding scale Continue to hold metformin NovoLog sliding scale 0-150 equals 0 units 151-200 equals 2 units 201-250 equals 4 units 251-300 equals 6 units 301-350 equals 8 units 351-400 equals 10 units Please notify provider if blood sugar is 400 or above Follow-up with H outpatient Follow-up with psychiatry outpatient Follow-up with urology outpatient Discharge Disposition: TRANSFER TO SNF/F
== END 2022-12-07 16:08 | DRG 698 ==
LOC: EC 16:46 → 3SCARD 23:41
PROVIDERS: ADMIT Hospitalist; ATTEND Hospitalist
DX: T83.511A Infection and inflammatory reaction due to indwelling urethral catheter, initial encounter (principal); A41.59 Other Gram-negative sepsis; R65.20 Severe sepsis without septic shock; N17.0 Acute kidney failure with tubular necrosis; Z16.12 Extended spectrum beta lactamase (ESBL) resistance; J98.11 Atelectasis; N39.0 Urinary tract infection, site not specified; I10 Essential (primary) hypertension; B96.1 Klebsiella pneumoniae [K. pneumoniae] as the cause of diseases classified elsewhere; Z20.822 Contact with and (suspected) exposure to COVID-19; Z28.21 Immunization not carried out because of patient refusal; N31.9 Neuromuscular dysfunction of bladder, unspecified; Z71.6 Tobacco abuse counseling; F17.210 Nicotine dependence, cigarettes, uncomplicated; E83.42 Hypomagnesemia; E05.90 Thyrotoxicosis, unspecified without thyrotoxic crisis or storm; E83.51 Hypocalcemia; G47.00 Insomnia, unspecified; E11.65 Type 2 diabetes mellitus with hyperglycemia; E04.1 Nontoxic single thyroid nodule; F25.9 Schizoaffective disorder, unspecified; E86.1 Hypovolemia; E87.6 Hypokalemia; M25.572 Pain in left ankle and joints of left foot; G40.909 Epilepsy, unspecified, not intractable, without status epilepticus; R74.01 Elevation of levels of liver transaminase levels; K29.00 Acute gastritis without bleeding; K31.89 Other diseases of stomach and duodenum; Z79.84 Long term (current) use of oral hypoglycemic drugs; Z79.01 Long term (current) use of anticoagulants; Z79.899 Other long term (current) drug therapy; Z86.711 Personal history of pulmonary embolism; Z86.010 Personal history of colon polyps; Z87.440 Personal history of urinary (tract) infections; Z91.148 Patient's other noncompliance with medication regimen for other reason; Z86.14 Personal history of Methicillin resistant Staphylococcus aureus infection; Z83.3 Family history of diabetes mellitus; Z60.2 Problems related to living alone
CPT/HCPCS: 36415; 70450; 71045; 74176; 80048; 80053; 81001; 82040; 82306; 83036; 83735; 83970; 84100; 84439; 84443; 84481; 84484; 85025; 85610; 85730; 87077; 87086; 87186; 87635; 93005; 94640; 94760; 96365; 96366; 96367; 96368; 96375; 99291

== ENCOUNTER 2022-12-18 14:40 | Inpatient (IN) | payer MEDICARE, OTHER ==
[2022-12-18] MEDS ORDERED: METOCLOPRAMIDE 5 MG/ML 2 ML VIAL IVP STA (15:06)
[2022-12-18 16:09] LABS: Basophils % (A) 0 %; Eosinophils % (A) 0 %; HCT 41.1 % (34.0-46.0); HGB 13.7 gm/dL (11.4-16.0); Lymphocytes # (A) 0.7 k/uL (1.0-4.8); Lymphocytes % (A) 9 %; MCHC 33.2 g/dL (31.0-37.0); MCV 87.5 fL (80.0-100.0); Mean Platelet Volume 9.7; Monocytes # (A) 0.1 k/uL (0-1.0); Monocytes % (A) 2 %; Neutrophils # (A) 6.3 k/uL (1.3-7.7); Neutrophils % (A) 89 %; Platelet Count 149 k/uL (150-450); RDW 14.6 % (11.5-15.5); WBC 7.2 k/uL (3.8-10.6)
[2022-12-18 16:17] LABS: Appearance,Urine Cloudy (Clear); Bacteria,Urine Moderate /hpf; Bilirubin,Urine Negative (Negative); Blood,Urine Small (Negative); Budding Yeast,Urine Few /hpf; Color,Urine Yellow; Glucose,Urine (UA) Negative (Negative); Ketones,Urine Negative (Negative); Leukocyte Esterase,Urine Moderate (Negative); Mucus,Urine Rare /hpf; Nitrite,Urine Negative (Negative); PH, Urine 6.5 (5.0-8.0); Protein,Urine 3+ (Negative); RBC,Urine 15 /hpf (0-5); Specific Gravity,Urine 1.019 (1.001-1.035); Squamous Epithelial Cell,Urine <1 /hpf (0-4); Urobilinogen,Urine <2.0 mg/dL (<2.0); WBC,Urine 36 /hpf (0-5)
[2022-12-18 16:24] LABS: ALT 24 U/L (4-34); AST 19 U/L (14-36); African American GFR (CKD) 67 (>60 ml/min/1.73 sqM); Albumin 4.5 g/dL (3.5-5.0); Alkaline Phosphatase 37 U/L (38-126); Anion Gap 17 mmol/L; Blood Urea Nitrogen 17 mg/dL (7-17); Calcium 8.2 mg/dL (8.4-10.2); Carbon Dioxide 29 mmol/L (22-30); Chloride 95 mmol/L (98-107); Glucose 299 mg/dL (74-99); Lipase 90 U/L (23-300); Non-African American GFR(CKD) 58 (>60 ml/min/1.73 sqM); Potassium 2.9 mmol/L (3.5-5.1); Sodium 141 mmol/L (137-145); Total Bilirubin 0.6 mg/dL (0.2-1.3); Total Protein 7.2 g/dL (6.3-8.2)
[2022-12-18 16:28] LABS: Magnesium <0.4 mg/dL (1.6-2.3)
[2022-12-18] MEDS ORDERED: PIPERACILLIN-TAZOBACTAM 3.375 GM in SODIUM CHLORIDE 0.9% 100 ML IVPB STA (16:28)
[2022-12-18] MEDS: SODIUM CHLORIDE 0.9% 500 ML 500 ML IV SCH ×2 (16:40→17:39)
--- NOTE | 2022-12-18 16:57 | ED ---
Nausea/Vomiting/Diarrhea HPI - General Chief complaint: Nausea/Vomiting/Diarrhea Stated complaint: Abnormal Labs, Nausea Time Seen by Provider: 12/18/22 14:53 Source: patient, EMS Mode of arrival: EMS Limitations: no limitations - History of Present Illness Initial comments: \The patient is a 57-year-old female with history of multiple comorbidities inc luding diabetes, hypertension, psychosis, behavior health, hypomagnesemia, hypokalemia, hypocalcemia, hyperthyroidism, who presents to the emergency room with complaints of nausea vomiting and abdominal cramping. Patient states that it started at 11 PM last night. Patient denies any fevers. She denies any dysuria hematuria, urinary frequency. Patient does have a Taylor catheter placed, a recent hospital stay secondary to urinary tract infection. She states that this has healed well and she is no longer taking the antibiotics. Patient denies any chest pain, shortness breath, cough, congestion or other flulike symptoms. she denies any constipation or watery diarrhea but has had soft stools . - Related Data Home Medications Medication Instructions Recorded Confirmed fluPHENAZine decanoate [Prolixin 50 mg IM Q14D 01/21/16 12/18/22 Decanoate] Tamsulosin [Flomax] 0.4 mg PO DAILY 03/13/17 12/18/22 Omeprazole 20 mg PO BID 07/22/20 12/18/22 Apixaban [Eliquis] 5 mg PO BID 10/24/20 12/18/22 fluvoxaMINE MALEATE [Luvox] 100 mg PO HS 10/24/20 12/18/22 Atorvastatin [Lipitor] 40 mg PO HS 10/19/21 12/18/22 Nicotine 21Mg/24Hr Patch [Habitrol] 1 patch TRANSDERM DAILY 03/19/22 12/18/22 sitaGLIPtin [Januvia] 100 mg PO DAILY 03/19/22 12/18/22 Albuterol Inhaler [Ventolin Hfa 2 puff INHALATION RT-Q6H PRN 11/02/22 12/18/22 Inhaler] Ergocalciferol (Vitamin D2) 1,250 mcg PO SA 11/02/22 12/18/22 [Drisdol (50,000 Iu)] Metoprolol Tartrate [Lopressor] 25 mg PO BID 11/02/22 12/18/22 Tiotropium Br/Olodaterol HCl 1 puff INHALATION RT-DAILY PRN 11/02/22 12/18/22 [Stiolto Respimat Inhal Allison] methIMAzole [Tapazole] 5 mg PO DAILY 11/02/22 12/18/22 Cholecalciferol [Vitamin D3 (25 25 mcg PO DAILY 12/18/22 12/18/22 Mcg = 1000 Iu)] Glimepiride [Amaryl] 4 mg PO BID 12/18/22 12/18/22 Insulin Lispro [humaLOG Kwikpen] See Protocol SQ ACHS 12/18/22 12/18/22 Ipratropium-Albuterol Nebulize 3 ml INHALATION RT-Q6H PRN 12/18/22 12/18/22 [Duoneb 0.5 mg-3 mg/3 ml Soln] Magnesium Oxide [Mag-Ox] 400 mg PO Q6H 12/18/22 12/18/22 Metoclopramide [Reglan] 5 mg PO Q8H PRN 12/18/22 12/18/22 Ondansetron [Zofran] 4 mg PO Q6H PRN 12/18/22 12/18/22 cloZAPine [Clozaril] 200 mg PO HS 12/18/22 12/18/22 metFORMIN HCL [Glucophage] 500 mg PO BID 12/18/22 12/18/22 Previous Rx's Medication Instructions Recorded Acetaminophen Tab [Tylenol] 650 mg PO Q6HR PRN tab 12/07/22 LORazepam [Ativan] 0.5 mg PO DAILY PRN #2 tab 12/07/22 traZODone HCL [Desyrel] 50 mg PO HS PRN tab 12/07/22 Allergies Allergy/AdvReac Type Severity Reaction Status Date / Time haloperidol [From Haldol] AdvReac Muscles Verified 12/18/22 14:52 freeze up in arms and hands haloperidol lactate AdvReac Muscles Verified 12/18/22 14:52 [From Haldol] freeze up in arms and hands Review of Systems ROS Statement: Those systems with pertinent positive or pertinent negative responses have been documented in the HPI. ROS Other: All systems not noted in ROS Statement are negative. Past Medical History Past Medical History: COPD, Diabetes Mellitus, GERD/Reflux, Hypertension, Osteoarthritis (OA), Pulmonary Embolus (PE), Seizure Disorder Additional Past Medical History / Comment(s): Hx of colon polyps, neuorgenic bladder, anemia, self caths at home, thyroid nodule, UTI with hospital admission september 2021- klebsiella treated with ceftin History of Any Multi-Drug Resistant Organisms: ESBL Date of last positivie culture/infection: 12/01/22 MDRO Source:: Urine Past Surgical History: Back Surgery, Breast Surgery, Ear Surgery Additional Past Surgical History / Comment(s): hunter breast reduction, breast biopsy, bladder stimulator implant, skin grafts to ear Past Anesthesia/Blood Transfusion Reactions: No Reported Reaction Past Psychological History: Bipolar, Depression, Schizoaffective Disorder Smoking Status: Current some day smoker Past Alcohol Use History: None Reported Past Drug Use History: None Reported - Past Family History Father Family Medical History: Cancer Additional Family Medical History / Comment(s): lung Sister(s) Family Medical History: Cancer Additional Family Medical History / Comment(s): ovarian General Exam Limitations: no limitations General appearance: alert, in no apparent distress Head exam: Present: atraumatic Eye exam: Present: normal appearance Pupils: Present: normal accommodation Neck exam: Present: normal inspection Respiratory exam: Present: normal lung sounds bilaterally Cardiovascular Exam: Present: regular rate, normal rhythm GI/Abdominal exam: Present: soft, tenderness (Bilateral lower abdominal pain with palpation no rebound tenderness or peritoneal signs. No abdominal distention) Extremities exam: Present: full ROM Back exam: Present: full ROM Neurological exam: Present: alert, oriented X3 Psychiatric exam: Present: normal affect, normal mood Skin exam: Present: warm, dry Course Vital Signs 12/18/22 12/18/22 12/18/22 14:47 16:24 17:58 Temperature 98.0 F Pulse Rate 124 H 117 H 98 Respiratory 18 20 18 Rate Blood Pressure 145/88 150/96 148/89 O2 Sat by Pulse 98 97 99 Oximetry 12/18/22 12/18/22 18:48 20:34 Temperature Pulse Rate 105 H 114 H Respiratory 18 18 Rate Blood Pressure 148/90 137/88 O2 Sat by Pulse 96 93 L Oximetry - Reevaluation(s) Reevaluation #1: 12/18/221953 Patient is feeling better at this time. Received IV fluids and Reglan in the emergency room and has had no further vomiting. Patient is hungry and eager to try eating. Patient had severely low hypomagnesemia was untraceable. She had magnesium sulfate infused at this time. I have ordered 4 g to be administered at a slow rate. She is to have this rechecked for further magnesium sulfate is ordered. I discussed admission plan with the patient as well as her sister on the phone. I did speak with her sister her health care surrogate for an extended period time regarding her symptoms were Admission and further treatment plan. Medical Decision Making - Medical Decision Making Was pt. sent in by a medical professional or institution (, [facility], INSTRUMENTATION ENGINEER, urgent care, hospital, or fdc...) When possible be specific @ -[No] Did you speak to anyone other than the patient for history (EMS, parent, family, police, friend...)? What history was obtained from this source @ -Spoke with sister who is her health care surrogate over the phone. Did you review nursing and triage notes (agree or disagree)? Why? @ -[I reviewed and agree with nursing and triage notes] Were old charts reviewed (outside hosp., previous admission, EMS record, old EKG, old radiological studies, urgent care reports/EKG's, fdc records)? Report findings @ -Yes old charts were reviewed. Recent hospital visits and discharge summaries were also reviewed as well as recent labs and imaging results. Differential Diagnosis (chest pain, altered mental status, abdominal pain women, abdominal pain men, vaginal bleeding, weakness, fever, dyspnea, syncope, headache, dizziness, GI bleed, back pain, seizure, CVA, palpatations, mental health, musculoskeletal)? @ -Gastroenteritis, bowel obstruction, viral syndrome, hypo magnesium is, renal insufficiency, gastroparesis, gastritis , appendicitis, diverticulitis, UTI and dehydration EKG interpreted by me (3pts min.). @ -EKG shows sinus tachycardia with occasional PVCs at a rate of 114 beats per minute and nonspecific ST and T-wave changes, no acute ST segment elevation X-rays interpreted by me (1pt min.). @ -[None done] CT interpreted by me (1pt min.). @ -CT shows atrophy kidney however there is no signs of bowel objection mass or inte bowel perforation on computed tomography scan however radiology report is pending for confirmation of acute changes U/Srpreted by me (1pt. min.). @ -[None done] What testing was considered but not performed or refused? (CT, X-rays, U/S, labs)? Why? @ -[None] What meds were considered but not given or refused? Why? @ -[None] Did you discuss the management of the patient with other professionals (professionals i.e. , PA, INSTRUMENTATION ENGINEER, lab, RT, psych nurse, social problems specialist, case maker, teacher, international first officer, assistant case manager)? Give summary @discussed patient's symptoms are And management with attending ED physician Dr. Alanis today. Patient will be admitted to the hospital for treatment of the hypomagnesemia and hydration at this time. Was smoking cessation discussed for >3mins.? @ -[No] Was critical care preformed (if so, how long)? @ -[No] Were there social determinants of health that impacted care today? How? (Homelessness, low income, unemployed, alcoholism, drug addiction, transportation, low edu. Level, literacy, decrease access to med. care, correction, rehab)? @ -[No] Was there de-escalation of care discussed even if they declined (Discuss DNR or withdrawal of care, Hospice)? DNR status @ -[No] What co-morbidities impacted this encounter? (DM, HTN, Smoking, COPD, CAD, Cancer, CVA, ARF, Chemo, Hep., AIDS, mental health diagnosis, sleep apnea, morbid obesity)? @ -[None] Was patient admitted / discharged? Hospital course, mention meds given and route, prescriptions, significant lab abnormalities, going to OR and other pertinent info. @ patient will be admitted to the hospital for correction of the hypomagnesemia as well as hydration. Lactic acid likely will improve with fluid hydration. No indication there is an infection at this time his patient is negative for leukocytosis her urine does not show an obvious urinary tract infection at this time. Undiagnosed new problem with uncertain prognosis? @ -[No] Drug Therapy requiring intensive monitoring for toxicity (Heparin, Nitro, Insulin, Cardizem)? @ -[No] Were any procedures done? @ -[No] Diagnosis/symptom? vomiting, hypomagnesemia, renal insufficiency, abdominal pain Acute, or Chronic, or Acute on Chronic? Chronic? @ -Acute and chronic compliuated (without systemic symptoms) or Complicated (systemic symptoms)? @ -[default] Side effects of treatment? @ -[No] Exacerbation, Progression, or Severe Exacerbation? @ -[No] Poses a threat to life or bodily function? How? (Chest pain, [place], [place], pneumonia, PE, COPD, DKA, ARF, appy, cholecystitis, CVA, Diverticulitis, Homicidal, Suicidal, threat to staff... and all critical care pts) @ -[No] - Lab Data Result diagrams: 12/18/22 15:53 12/18/22 15:53 Lab Results 12/18/22 12/18/22 12/18/22 Range/Units 15:53 15:53 15:53 WBC 7.2 (3.8-10.6) k/uL RBC 4.70 (3.80-5.40) m/uL Hgb 13.7 (11.4-16.0) gm/dL Hct 41.1 (34.0-46.0) % MCV 87.5 (80.0-100.0) fL MCH 29.0 (25.0-35.0) pg MCHC 33.2 (31.0-37.0) g/dL RDW 14.6 (11.5-15.5) % Plt Count 149 L (150-450) k/uL MPV 9.7 Neutrophils % 89 % Lymphocytes % 9 % Monocytes % 2 % Eosinophils % 0 % Basophils % 0 % Neutrophils # 6.3 (1.3-7.7) k/uL Lymphocytes # 0.7 L (1.0-4.8) k/uL Monocytes # 0.1 (0-1.0) k/uL Eosinophils # 0.0 (0-0.7) k/uL Basophils # 0.0 (0-0.2) k/uL PT (10.0-12.5) sec INR (<1.2) APTT (22.0-30.0) sec Sodium 141 (137-145) mmol/L Potassium 2.9 L (3.5-5.1) mmol/L Chloride 95 L (98-107) mmol/L Carbon Dioxide 29 (22-30) mmol/L Anion Gap 17 mmol/L BUN 17 (7-17) mg/dL Creatinine 1.06 H (0.52-1.04) mg/dL Est GFR (CKD-EPI)AfAm 67 (>60 ml/min/1.73 sqM) Est GFR (CKD-EPI)NonAf 58 (>60 ml/min/1.73 sqM) Glucose 299 H (74-99) mg/dL Lactic Ac Sepsis Rflx Plasma Lactic Acid Len[place] 2.9 H* (0.7-2.0) mmol/L Calcium 8.2 L (8.4-10.2) mg/dL Magnesium <0.4 L* (1.6-2.3) mg/dL Total Bilirubin 0.6 (0.2-1.3) mg/dL AST 19 (14-36) U/L ALT 24 (4-34) U/L Alkaline Phosphatase 37 L (38-126) U/L Troponin I (0.000-0.034) ng/mL Total Protein 7.2 (6.3-8.2) g/dL Albumin 4.5 (3.5-5.0) g/dL Lipase 90 (23-300) U/L Urine Color Urine Appearance (Clear) Urine pH (5.0-8.0) Ur Specific [place] (1.001-1.035) Urine Protein (Negative) Urine Glucose (UA) (Negative) Urine Ketones (Negative) Urine Blood (Negative) Urine Nitrite (Negative) Urine Bilirubin (Negative) Urine Urobilinogen (<2.0) mg/dL Ur Leukocyte Esterase (Negative) Urine RBC (0-5) /hpf Urine WBC (0-5) /hpf Ur Squamous Epith Cells (0-4) /hpf Urine Bacteria (None) /hpf Urine Mucus (None) /hpf Urine Yeast (Budding) (None) /hpf Acetone, Qual Negative (Negative) Influenza Type A (PCR) (Not Detectd) Influenza Type B (PCR) (Not Detectd) RSV (PCR) (Not Detectd) SARS-CoV-2 (PCR) (Not Detectd) 12/18/22 12/18/22 12/18/22 Range/Units 15:53 15:53 15:53 WBC (3.8-10.6) k/uL RBC (3.80-5.40) m/uL Hgb (11.4-16.0) gm/dL Hct (34.0-46.0) % MCV (80.0-100.0) fL MCH (25.0-35.0) pg MCHC (31.0-37.0) g/dL RDW (11.5-15.5) % Plt Count (150-450) k/uL MPV Neutrophils % % Lymphocytes % % Monocytes % % Eosinophils % % Basophils % % Neutrophils # (1.3-7.7) k/uL Lymphocytes # (1.0-4.8) k/uL Monocytes # (0-1.0) k/uL Eosinophils # (0-0.7) k/uL Basophils # (0-0.2) k/uL PT (10.0-12.5) sec INR (<1.2) APTT (22.0-30.0) sec Sodium (137-145) mmol/L Potassium (3.5-5.1) mmol/L Chloride (98-107) mmol/L Carbon Dioxide (22-30) mmol/L Anion Gap mmol/L BUN (7-17) mg/dL Creatinine (0.52-1.04) mg/dL Est GFR (CKD-EPI)AfAm (>60 ml/min/1.73 sqM) Est GFR (CKD-EPI)NonAf (>60 ml/min/1.73 sqM) Glucose (74-99) mg/dL Lactic Ac Sepsis Rflx Plasma Lactic Acid [place] (0.7-2.0) mmol/L Calcium (8.4-10.2) mg/dL Magnesium (1.6-2.3) mg/dL Total Bilirubin (0.2-1.3) mg/dL AST (14-36) U/L ALT (4-34) U/L Alkaline Phosphatase (38-126) U/L Troponin I <0.012 (0.000-0.034) ng/mL Total Protein (6.3-8.2) g/dL Albumin (3.5-5.0) g/dL Lipase (23-300) U/L Urine Color Yellow Urine Appearance Cloudy H (Clear) Urine pH 6.5 (5.0-8.0) Ur Specific [place] 1.019 (1.001-1.035) Urine Protein 3+ H (Negative) Urine Glucose (UA) Negative (Negative) Urine Ketones Negative (Negative) Urine Blood Small H (Negative) Urine Nitrite Negative (Negative) Urine Bilirubin Negative (Negative) Urine Urobilinogen <2.0 (<2.0) mg/dL Ur Leukocyte Esterase Moderate H (Negative) Urine RBC 15 H (0-5) /hpf Urine WBC 36 H (0-5) /hpf Ur Squamous Epith Cells <1 (0-4) /hpf Urine Bacteria Moderate H (None) /hpf Urine Mucus Rare H (None) /hpf Urine Yeast (Budding) Few H (None) /hpf Acetone, Qual (Negative) Influenza Type A (PCR) Not Detected (Not Detectd) Influenza Type B (PCR) Not Detected (Not Detectd) RSV (PCR) Not Detected (Not Detectd) SARS-CoV-2 (PCR) Not Detected (Not Detectd) 12/18/22 12/18/22 Range/Units 16:26 18:21 WBC (3.8-10.6) k/uL RBC (3.80-5.40) m/uL Hgb (11.4-16.0) gm/dL Hct (34.0-46.0) % MCV (80.0-100.0) fL MCH (25.0-35.0) pg MCHC (31.0-37.0) g/dL RDW (11.5-15.5) % Plt Count (150-450) k/uL MPV Neutrophils % % Lymphocytes % % Monocytes % % Eosinophils % % Basophils % % Neutrophils # (1.3-7.7) k/uL Lymphocytes # (1.0-4.8) k/uL Monocytes # (0-1.0) k/uL Eosinophils # (0-0.7) k/uL Basophils # (0-0.2) k/uL PT 13.3 H (10.0-12.5) sec INR 1.3 H (<1.2) APTT 24.3 (22.0-30.0) sec Sodium (137-145) mmol/L Potassium (3.5-5.1) mmol/L Chloride (98-107) mmol/L Carbon Dioxide (22-30) mmol/L Anion Gap mmol/L BUN (7-17) mg/dL Creatinine (0.52-1.04) mg/dL Est GFR (CKD-EPI)AfAm (>60 ml/min/1.73 sqM) Est GFR (CKD-EPI)NonAf (>60 ml/min/1.73 sqM) Glucose (74-99) mg/dL Lactic Ac Sepsis Rflx Y Plasma Lactic Acid [place] (0.7-2.0) mmol/L Calcium (8.4-10.2) mg/dL Magnesium (1.6-2.3) mg/dL Total Bilirubin (0.2-1.3) mg/dL AST (14-36) U/L ALT (4-34) U/L Alkaline Phosphatase (38-126) U/L Troponin I (0.000-0.034) ng/mL Total Protein (6.3-8.2) g/dL Albumin (3.5-5.0) g/dL Lipase (23-300) U/L Urine Color Urine Appearance (Clear) Urine pH (5.0-8.0) Ur Specific [place] (1.001-1.035) Urine Protein (Negative) Urine Glucose (UA) (Negative) Urine Ketones (Negative) Urine Blood (Negative) Urine Nitrite (Negative) Urine Bilirubin (Negative) Urine Urobilinogen (<2.0) mg/dL Ur Leukocyte Esterase (Negative) Urine RBC (0-5) /hpf Urine WBC (0-5) /hpf Ur Squamous Epith Cells (0-4) /hpf Urine Bacteria (None) /hpf Urine Mucus (None) /hpf Urine Yeast (Budding) (None) /hpf Acetone, Qual (Negative) Influenza Type A (PCR) (Not Detectd) Influenza Type B (PCR) (Not Detectd) RSV (PCR) (Not Detectd) SARS-CoV-2 (PCR) (Not Detectd) - EKG Data -: EKG Interpreted by Me (EKG shows sinus tachycardia rate 114 beats per minute with occasional PVCs ) - Radiology Data Radiology results: report reviewed, image reviewed Disposition Clinical Impression: Vomiting, Renal insufficiency, Hypomagnesemia, Dehydration, Abdominal pain Disposition: ADMITTED IP TO THIS HOSP Condition: Fair Time of Disposition: 20:04
[2022-12-18] MEDS: MAGNESIUM SULFATE-D5W PMX 1 GM in DEXTROSE/WATER 1 100ML.BAG IVPB SCH ×4 (17:44→21:39)
--- NOTE | 2022-12-18 17:54 | CT ---
EXAMINATION TYPE: CT abdomen pelvis w con DATE OF EXAM: 12/18/2022 COMPARISON: 11/30/2022 HISTORY: Abdominal pain, vomiting CT DLP: 891.8 mGycm Automated exposure control for dose reduction was used. TECHNIQUE: Helical acquisition of images was performed from the lung bases through the pelvis. CONTRAST: Performed without Oral Contrast and with IV Contrast, patient injected with 80 mL of Isovue 370. FINDINGS: The lung bases are clear. Gallbladder is normal and there is no gallstone, distention, wall thickening or pericholecystic fluid . There is no biliary ductal dilatation. There is no focal mass or organomegaly involving the liver, pancreas, spleen or adrenal glands. The caliber the abdominal aorta is normal. There is no retroperitoneal adenopathy or hemorrhage. The left kidney is moderately atrophic. There are no solid renal masses or hydronephrosis. The bowel loops are normal in caliber and there is no dilatation or obstruction. No inflammatory koch ges are identified in the bowel wall or mesentery and there is no free intraperitoneal air or fluid. There is no pelvic mass or adenopathy. There is a Taylor catheter in urinary bladder. The osseous structures are intact. There is a lipoma in the right buttock musculature Impression 1 1. No acute changes within the abdomen or pelvis. 2. Moderate atrophy of the left kidney. 3. No bowel obstruction, bowel inflammation, free intraperitoneal air or fluid.
[2022-12-18 18:42] LABS: INR 1.3 (<1.2); Partial Thromboplastin Time 24.3 sec (22.0-30.0); Prothrombin Time 13.3 sec (10.0-12.5)
[2022-12-18] MEDS ORDERED: NALOXONE 0.4 MG/ML 1 ML VIAL IV PRN (18:56)
[2022-12-18] MEDS ORDERED: ONDANSETRON 4 MG/2 ML VIAL IVP PRN (18:56)
[2022-12-18] MEDS ORDERED: NICOTINE 21MG/24HR PATCH TRANSDERM STA (19:01)
[2022-12-18 20:45] LABS: Glucose,Whole Blood 292 mg/dL (70-110)
[2022-12-18] MEDS: METOPROLOL TARTRATE 25 MG TAB PO SCH (20:45)
[2022-12-18] MEDS: APIXABAN 5 MG TAB PO SCH (20:45)
[2022-12-18] MEDS: metFORMIN 500 MG TAB PO SCH (20:45)
[2022-12-18] MEDS: GLIMEPIRIDE 2 MG TAB PO SCH (20:45)
[2022-12-18] MEDS: cloZAPine 100 MG TAB PO SCH (20:46)
[2022-12-18] MEDS: SODIUM CHLORIDE 0.9% 1,000 ML IV SCH (20:49)
[2022-12-19] MEDS: SODIUM CHLORIDE 0.9% 1,000 ML IV SCH ×3 (05:09→21:02)
[2022-12-19 06:56] LABS: Basophils % (A) 0 %; Eosinophils # (A) 0.1 k/uL (0-0.7); Eosinophils % (A) 0 %; HCT 36.2 % (34.0-46.0); HGB 11.9 gm/dL (11.4-16.0); Lymphocytes # (A) 1.9 k/uL (1.0-4.8); Lymphocytes % (A) 14 %; MCH 28.9 pg (25.0-35.0); MCHC 32.8 g/dL (31.0-37.0); MCV 88.1 fL (80.0-100.0); Mean Platelet Volume 8.8; Monocytes # (A) 0.5 k/uL (0-1.0); Monocytes % (A) 4 %; Neutrophils # (A) 11.2 k/uL (1.3-7.7); Neutrophils % (A) 82 %; Platelet Count 178 k/uL (150-450); RDW 14.7 % (11.5-15.5); WBC 13.7 k/uL (3.8-10.6)
[2022-12-19 07:07] LABS: African American GFR (CKD) 82 (>60 ml/min/1.73 sqM); Anion Gap 11 mmol/L; Blood Urea Nitrogen 13 mg/dL (7-17); Calcium 6.8 mg/dL (8.4-10.2); Carbon Dioxide 27 mmol/L (22-30); Chloride 101 mmol/L (98-107); Glucose 119 mg/dL (74-99); Non-African American GFR(CKD) 71 (>60 ml/min/1.73 sqM); Sodium 139 mmol/L (137-145)
[2022-12-19 07:26] LABS: Potassium 2.6 mmol/L (3.5-5.1)
[2022-12-19] MEDS ORDERED: METOCLOPRAMIDE 5 MG TAB PO PRN (09:27)
[2022-12-19] MEDS ORDERED: LORazepam 0.5 MG TAB PO PRN (09:27)
[2022-12-19] MEDS ORDERED: traZODone HCL 50 MG TAB PO PRN (09:27)
[2022-12-19] MEDS ORDERED: ACETAMINOPHEN TAB 325 MG TAB PO PRN (09:27)
[2022-12-19] MEDS ORDERED: ALBUTEROL NEBULIZED 2.5 MG/3 ML INHALATION PRN (09:27)
[2022-12-19] MEDS ORDERED: FORMOTEROL FUMARATE 20 MCG/2 ML NEBU INHALATION PRN (09:27)
[2022-12-19] MEDS ORDERED: CALCIUM GLUCONATE IN NACL 1 GM in SALINE 1 100ML.BAG IVPB ONE (09:31)
[2022-12-19] MEDS ORDERED: DEXTROSE 50% SYRINGE 50 ML IVP PRN ×2 (09:31)
[2022-12-19] MEDS ORDERED: IPRATROPIUM 0.5 MG/2.5 ML NEBU INHALATION PRN (09:37)
[2022-12-19] MEDS: METOPROLOL TARTRATE 25 MG TAB PO SCH ×3 (10:36→20:59)
[2022-12-19] MEDS: GLIMEPIRIDE 2 MG TAB PO SCH ×2 (10:36→20:59)
[2022-12-19] MEDS: MAGNESIUM OXIDE 400 MG TAB PO SCH ×3 (10:36→20:59)
[2022-12-19] MEDS: ATORVASTATIN 40 MG TAB PO SCH (10:36)
[2022-12-19] MEDS: APIXABAN 5 MG TAB PO SCH ×2 (10:36→20:59)
[2022-12-19] MEDS: TAMSULOSIN 0.4 MG CAP.ER.24H PO SCH (10:37)
[2022-12-19] MEDS: PANTOPRAZOLE 40 MG/10 ML VIAL IVP SCH (10:41)
[2022-12-19] MEDS: metFORMIN 500 MG TAB PO SCH (10:46)
[2022-12-19] MEDS: NICOTINE 21MG/24HR PATCH TRANSDERM SCH (10:47)
[2022-12-19] MEDS: methIMAzole 5 MG TAB PO SCH (11:04)
[2022-12-19] MEDS: propylthiouraciL 50 MG TAB PO SCH (11:04)
[2022-12-19] MEDS: POTASSIUM CHLORIDE 10 MEQ in WATER FOR INJECTION 1 100ML.BAG IVPB SCH ×2 (11:10→12:35)
[2022-12-19] MEDS: MAGNESIUM SULFATE-D5W PMX 1 GM in DEXTROSE/WATER 1 100ML.BAG IVPB SCH ×2 (11:16→12:34)
--- NOTE | 2022-12-19 13:21 | P.HPIM ---
History of Present Illness H&P Date: 12/19/22 Chief Complaint: Nausea vomiting diarrhea * 57-year-old patient with past medical history significant for DVT, hypothyroidism, history of pulmonary embolism, history of seizure disorder, neurogenic bladder with bladder stimulator implant in place, history of depression, seasonal affective disorder and bipolar disorder presented to the emergency department with complains of recurrent nausea vomiting. Patient was recently admitted discharge on 12/07/22 treated for urinary tract infection discharge on oral antibiotic to complete one week antibiotic course. Patient was discharged to medicine [place] and presents with intractable nausea vomiting. Workup initiated in ER included lipase levels which were within normal limits, liver profile obtained which were normal HEENT AST and bilirubin levels. Patient was noted to have severe electrolyte abnormalities including potassium of 2.9 and No 1.06. Hepatology showed WBC within normal limits myeloma 13.7 platelet count of 149 * CT abdomen and pelvis obtained in ER negative for acute intra-abdominal process or obstruction. * Patient was noted to have elevated lactate on admission secondary to dehydration however significant improvement was noted after hydration * Admitted to medical floor and resuscitated with fluid along with electrolyte replacement REVIEW OF SYSTEMS: Nausea, vomiting, abdominal pain CONSTITUTIONAL: No fever, no malaise, no fatigue. HEENT: No recent visual problems or hearing problems. Denied any sore throat. CARDIOVASCULAR: No chest pain, orthopnea, PND, no palpitations, no syncope. PULMONARY: No shortness of breath, no cough, no hemoptysis. GASTROINTESTINAL: No diarrhea, no nausea, no vomiting, no abdominal pain. NEUROLOGICAL: No headaches, no weakness, no numbness. HEMATOLOGICAL: Denies any bleeding or petechiae. GENITOURINARY: Denies any burning micturition, frequency, or urgency. MUSCULOSKELETAL/RHEUMATOLOGICAL: Denies any joint pain, swelling, or any muscle pain. ENDOCRINE: Denies any polyuria or polydipsia. PHYSICAL EXAMINATION: GENERAL: The patient is alert and oriented x 2, not in any acute distress. Well developed, well nourished. HEENT: Pupils are round and equally reacting to light. EOMI. CARDIOVASCULAR: S1 and S2 present. No murmurs, rubs, or gallops. PULMONARY: Chest is clear to auscultation, no wheezing or crackles. ABDOMEN: Soft, nontender, nondistended, normoactive bowel sounds. MUSCULOSKELETAL: No joint swelling or deformity. EXTREMITIES: No cyanosis, clubbing, or pedal edema. NEUROLOGICAL: Gross neurological examination did not reveal any focal deficits. SKIN: No rashes. Past Medical History Past Medical History: COPD, Diabetes Mellitus, GERD/Reflux, Hypertension, Osteoarthritis (OA), Pulmonary Embolus (PE), Seizure Disorder Additional Past Medical History / Comment(s): Hx of colon polyps, neuorgenic bladder, anemia, self caths at home, thyroid nodule, UTI with hospital admission september 2021- klebsiella treated with ceftin History of Any Multi-Drug Resistant Organisms: ESBL Date of last positivie culture/infection: 12/01/22 MDRO Source:: Urine Past Surgical History: Back Surgery, Breast Surgery, Ear Surgery Additional Past Surgical History / Comment(s): hunter breast reduction, breast biopsy, bladder stimulator implant, skin grafts to ear Past Anesthesia/Blood Transfusion Reactions: No Reported Reaction Past Psychological History: Bipolar, Depression, Schizoaffective Disorder Smoking Status: Current some day smoker Past Alcohol Use History: None Reported Past Drug Use History: None Reported - Past Family History Father Family Medical History: Cancer Additional Family Medical History / Comment(s): lung Sister(s) Family Medical History: Cancer Additional Family Medical History / Comment(s): ovarian Medications and Allergies Home Medications Medication Instructions Recorded Confirmed Type fluPHENAZine decanoate [Prolixin 50 mg IM Q14D 01/21/16 12/18/22 History Decanoate] Tamsulosin [Flomax] 0.4 mg PO DAILY 03/13/17 12/18/22 History Omeprazole 20 mg PO BID 07/22/20 12/18/22 History Apixaban [Eliquis] 5 mg PO BID 10/24/20 12/18/22 History fluvoxaMINE MALEATE [Luvox] 100 mg PO HS 10/24/20 12/18/22 History Atorvastatin [Lipitor] 40 mg PO HS 10/19/21 12/18/22 History Nicotine 21Mg/24Hr Patch [Habitrol] 1 patch TRANSDERM DAILY 03/19/22 12/18/22 History sitaGLIPtin [Januvia] 100 mg PO DAILY 03/19/22 12/18/22 History Albuterol Inhaler [Ventolin Hfa 2 puff INHALATION RT-Q6H PRN 11/02/22 12/18/22 History Inhaler] Ergocalciferol (Vitamin D2) 1,250 mcg PO SA 11/02/22 12/18/22 History [Drisdol (50,000 Iu)] Metoprolol Tartrate [Lopressor] 25 mg PO BID 11/02/22 12/18/22 History Tiotropium Br/Olodaterol HCl 1 puff INHALATION RT-DAILY PRN 11/02/22 12/18/22 History [Stiolto Respimat Inhal [place]] methIMAzole [Tapazole] 5 mg PO DAILY 11/02/22 12/18/22 History Acetaminophen Tab [Tylenol] 650 mg PO Q6HR PRN tab 12/07/22 12/18/22 Rx LORazepam [Ativan] 0.5 mg PO DAILY PRN #2 tab 12/07/22 12/18/22 Rx traZODone HCL [Desyrel] 50 mg PO HS PRN tab 12/07/22 12/18/22 Rx Cholecalciferol [Vitamin D3 (25 25 mcg PO DAILY 12/18/22 12/18/22 History Mcg = 1000 Iu)] Glimepiride [Amaryl] 4 mg PO BID 12/18/22 12/18/22 History Insulin Lispro [humaLOG Kwikpen] See Protocol SQ ACHS 12/18/22 12/18/22 History Ipratropium-Albuterol Nebulize 3 ml INHALATION RT-Q6H PRN 12/18/22 12/18/22 History [Duoneb 0.5 mg-3 mg/3 ml Soln] Magnesium Oxide [Mag-Ox] 400 mg PO Q6H 12/18/22 12/18/22 History Metoclopramide [Reglan] 5 mg PO Q8H PRN 12/18/22 12/18/22 History Ondansetron [Zofran] 4 mg PO Q6H PRN 12/18/22 12/18/22 History cloZAPine [Clozaril] 200 mg PO HS 12/18/22 12/18/22 History metFORMIN HCL [Glucophage] 500 mg PO BID 12/18/22 12/18/22 History Allergies Allergy/AdvReac Type Severity Reaction Status Date / Time haloperidol [From Haldol] AdvReac Muscles Verified 12/18/22 14:52 freeze up in arms and hands haloperidol lactate AdvReac Muscles Verified 12/18/22 14:52 [From Haldol] freeze up in arms and hands Physical Exam Vitals: Vital Signs Temp Pulse Pulse Resp BP BP Pulse Ox 12/19/22 04:00 98.4 F 91 12 105/69 95 12/19/22 00:00 98.4 F 93 110/74 94 L 12/18/22 20:34 114 H 18 137/88 93 L 12/18/22 18:48 105 H 18 148/90 96 12/18/22 17:58 98 18 148/89 99 12/18/22 16:24 117 H 20 150/96 97 12/18/22 14:47 98.0 F 124 H 18 145/88 98 Intake and Output 12/18/22 12/19/22 12/19/22 22:59 06:59 14:59 Intake Total 1000 Output Total 600 400 Balance -600 600 Intake: Intake, IV Titration 1000 Amount Sodium Chloride 0.9% 1, 1000 000 ml @ 130 mls/hr IV . Q7H42M [facility] Rx#:[id number] Output: Urine 600 400 Other: Voiding Method Indwelling Catheter Results CBC & Chem 7: 12/19/22 06:28 12/19/22 06:28 Labs: Abnormal Lab Results - Last 24 Hours (Table) 12/18/22 12/18/22 12/18/22 Range/Units 15:53 15:53 15:53 WBC (3.8-10.6) k/uL Plt Count 149 L (150-450) k/uL Neutrophils # (1.3-7.7) k/uL Lymphocytes # 0.7 L (1.0-4.8) k/uL PT (10.0-12.5) sec INR (<1.2) Potassium 2.9 L (3.5-5.1) mmol/L Chloride 95 L (98-107) mmol/L Creatinine 1.06 H (0.52-1.04) mg/dL Glucose 299 H (74-99) mg/dL POC Glucose (mg/dL) (70-110) mg/dL Plasma Lactic Acid [place] 2.9 H* (0.7-2.0) mmol/L Calcium 8.2 L (8.4-10.2) mg/dL Magnesium <0.4 L* (1.6-2.3) mg/dL Alkaline Phosphatase 37 L (38-126) U/L Urine Appearance (Clear) Urine Protein (Negative) Urine Blood (Negative) Ur Leukocyte Esterase (Negative) Urine RBC (0-5) /hpf Urine WBC (0-5) /hpf Urine Bacteria (None) /hpf Urine Mucus (None) /hpf Urine Yeast (Budding) (None) /hpf 12/18/22 12/18/22 12/18/22 Range/Units 15:53 18:21 20:44 WBC (3.8-10.6) k/uL Plt Count (150-450) k/uL Neutrophils # (1.3-7.7) k/uL Lymphocytes # (1.0-4.8) k/uL PT 13.3 H (10.0-12.5) sec INR 1.3 H (<1.2) Potassium (3.5-5.1) mmol/L Chloride (98-107) mmol/L Creatinine (0.52-1.04) mg/dL Glucose (74-99) mg/dL POC Glucose (mg/dL) 292 H (70-110) mg/dL Plasma Lactic Acid [place] (0.7-2.0) mmol/L Calcium (8.4-10.2) mg/dL Magnesium (1.6-2.3) mg/dL Alkaline Phosphatase (38-126) U/L Urine Appearance Cloudy H (Clear) Urine Protein 3+ H (Negative) Urine Blood Small H (Negative) Ur Leukocyte Esterase Moderate H (Negative) Urine RBC 15 H (0-5) /hpf Urine WBC 36 H (0-5) /hpf Urine Bacteria Moderate H (None) /hpf Urine Mucus Rare H (None) /hpf Urine Yeast (Budding) Few H (None) /hpf 12/18/22 12/19/22 12/19/22 Range/Units 23:57 06:28 06:28 WBC 13.7 H (3.8-10.6) k/uL Plt Count (150-450) k/uL Neutrophils # 11.2 H (1.3-7.7) k/uL Lymphocytes # (1.0-4.8) k/uL PT (10.0-12.5) sec INR (<1.2) Potassium 2.6 L* (3.5-5.1) mmol/L Chloride (98-107) mmol/L Creatinine (0.52-1.04) mg/dL Glucose 119 H (74-99) mg/dL POC Glucose (mg/dL) (70-110) mg/dL Plasma Lactic Acid [place] (0.7-2.0) mmol/L Calcium 6.8 L (8.4-10.2) mg/dL Magnesium 1.4 L (1.6-2.3) mg/dL Alkaline Phosphatase (38-126) U/L Urine Appearance (Clear) Urine Protein (Negative) Urine Blood (Negative) Ur Leukocyte Esterase (Negative) Urine RBC (0-5) /hpf Urine WBC (0-5) /hpf Urine Bacteria (None) /hpf Urine Mucus (None) /hpf Urine Yeast (Budding) (None) /hpf Assessment and Plan Assessment: Assessment and plan * Acute gastritis with intractable nausea vomiting * Severe hypokalemia, hypomagnesemia * Acute kidney injury * History of seizure disorder * History of seasonal affective disorder * History of pulmonary embolism * Recent admission for urinary tract infection * Lactic acidosis secondary to dehydration * Diabetes mellitus type 2 * In regards to acute gastritis patient started on IV Protonix, use Zofran as needed for nausea. Continue with serial abdominal exam * In regards to electrolyte abnormality and acute kidney injury continue patient on IV hydration at potassium and magnesium replaced * In regards to seizure disorder * In regards to diabetes mellitus continue Accu-Cheks before meals at bedtime continue patient on correctional insulin monitor for hypoglycemia oral hypoglycemic agents resumed except metformin * CODE STATUS is full code
[2022-12-19 13:23] LABS: Glucose,Whole Blood 298 mg/dL (70-110)
[2022-12-19] MEDS: INSULIN ASPART (NovoLOG) 100 UNIT/ML VIAL SQ SCH ×3 (13:42→20:59)
[2022-12-19 17:14] LABS: Glucose,Whole Blood 155 mg/dL (70-110)
[2022-12-19] MEDS: IPRATROPIUM-ALBUTEROL 3 ML NEB INHALATION PRN (18:32)
[2022-12-19 20:22] LABS: Glucose,Whole Blood 304 mg/dL (70-110)
[2022-12-19] MEDS: POTASSIUM CHLORIDE ER 20 MEQ TAB.ER PO SCH ×3 (20:58→21:36)
[2022-12-19] MEDS: cloZAPine 100 MG TAB PO SCH (20:59)
[2022-12-20] MEDS: SODIUM CHLORIDE 0.9% 1,000 ML IV SCH ×2 (05:40→12:19)
[2022-12-20] MEDS: MAGNESIUM OXIDE 400 MG TAB PO SCH ×4 (05:40→20:16)
[2022-12-20 07:14] LABS: Glucose,Whole Blood 154 mg/dL (70-110)
[2022-12-20] MEDS: PANTOPRAZOLE 40 MG/10 ML VIAL IVP SCH ×2 (08:44→20:17)
[2022-12-20] MEDS: INSULIN ASPART (NovoLOG) 100 UNIT/ML VIAL SQ SCH ×4 (08:44→20:17)
[2022-12-20 10:49] LABS: HCT 35.8 % (37.2-46.3); HGB 11.5 d/dL (12.0-15.0); MCH 28.8 pg (27.0-32.0); MCHC 32.1 d/dL (32.0-37.0); MCV 89.5 FL (80.0-97.0); Mean Platelet Volume 12.1 FL (9.5-12.2); NRBC Per 100 WBC 0 X 10*3/uL (0.00-0.01); Platelet Count 170 X 10*3/uL (140-440); RDW 14.5 % (11.5-14.5); WBC 6.81 X 10*3/uL (4.50-10.00)
[2022-12-20 11:06] LABS: ALT 22 U/L (8-44); AST 16 U/L (13-35); Albumin 3.4 d/dL (3.8-4.9); Alkaline Phosphatase 45 U/L (41-126); BUN/Creat Ratio 7.33 Ratio (12.00-20.00); Blood Urea Nitrogen 6.6 mg/dL (9.0-27.0); Calcium 7.2 mg/dL (8.7-10.3); Carbon Dioxide 23.6 mmol/L (21.6-31.8); Chloride 112 mmol/L (96-109); Globulin 1.7 d/dL (1.6-3.3); Glucose 172 mg/dL (70-110); Magnesium 1.7 mg/dL (1.5-2.4); Phosphorus 2.8 mg/dL (2.4-5.1); Potassium 4.1 mmol/L (3.5-5.5); Sodium 146 mmol/L (135-145); Total Bilirubin 0.3 mg/dL (0.3-1.2); Total Protein 5.1 d/dL (6.2-8.2)
[2022-12-20 11:45] LABS: Glucose,Whole Blood 275 mg/dL (70-110)
[2022-12-20] MEDS: ATORVASTATIN 40 MG TAB PO SCH (11:57)
[2022-12-20] MEDS: APIXABAN 5 MG TAB PO SCH ×3 (11:57→20:16)
[2022-12-20] MEDS: methIMAzole 5 MG TAB PO SCH (11:58)
[2022-12-20] MEDS: GLIMEPIRIDE 2 MG TAB PO SCH ×2 (11:58→20:16)
[2022-12-20] MEDS: METOPROLOL TARTRATE 25 MG TAB PO SCH ×2 (11:59→20:16)
[2022-12-20] MEDS: NICOTINE 21MG/24HR PATCH TRANSDERM SCH (12:00)
[2022-12-20] MEDS: TAMSULOSIN 0.4 MG CAP.ER.24H PO SCH (12:01)
[2022-12-20] MEDS: propylthiouraciL 50 MG TAB PO SCH (12:01)
--- NOTE | 2022-12-20 12:26 | P.PN ---
Subjective Progress Note Date: 12/20/22 * 57-year-old patient with past medical history significant for DVT, hypothyroidism, history of pulmonary embolism, history of seizure disorder, neurogenic bladder with bladder stimulator implant in place, history of depression, seasonal affective disorder and bipolar disorder presented to the emergency department with complains of recurrent nausea vomiting. Patient was recently admitted discharge on 12/07/22 treated for urinary tract infection discharge on oral antibiotic to complete one week antibiotic course. Patient was discharged to medicine [place] and presents with intractable nausea vomiting. Workup initiated in ER included lipase levels which were within normal limits, liver profile obtained which were normal HEENT AST and bilirubin levels. Patient was noted to have severe electrolyte abnormalities including potassium of 2.9 and No 1.06. Hepatology showed WBC within normal limits myeloma 13.7 platelet count of 149 * CT abdomen and pelvis obtained in ER negative for acute intra-abdominal process or obstruction. * Patient was noted to have elevated lactate on admission secondary to dehydration however significant improvement was noted after hydration * Admitted to medical floor and resuscitated with fluid along with electrolyte replacement * 12/20/22: Patient seen and evaluated bedside patient had episode of nausea and one episode of vomiting after breakfast. Continue to monitor electrolytes, continue IV hydration. Patient requesting discharge. Patient counseled regarding fluid resuscitation and electrolyte correction. Denies of chest pain shortness of breath diarrhea Objective - Vital Signs Vital signs: Vital Signs Temp 98.4 F 12/20/22 11:45 Pulse 79 12/20/22 11:45 Resp 17 12/20/22 11:45 BP 135/78 12/20/22 11:45 Pulse Ox 100 12/20/22 11:45 FiO2 Intake & Output 12/19/22 12/20/22 12/20/22 18:59 06:59 18:59 Output Total 500 700 1 Balance -500 -700 -1 Weight 71 kg Output: Urine 500 700 Urine/Stool Mix 1 Other: Voiding Method Indwelling Catheter Indwelling Catheter - Exam PHYSICAL EXAMINATION: GENERAL: The patient is alert and oriented x 2, not in any acute distress. Well developed, well nourished. HEENT: Pupils are round and equally reacting to light. EOMI. CARDIOVASCULAR: S1 and S2 present. No murmurs, rubs, or gallops. PULMONARY: Chest is clear to auscultation, no wheezing or crackles. ABDOMEN: Soft, nontender, nondistended, normoactive bowel sounds. MUSCULOSKELETAL: No joint swelling or deformity. EXTREMITIES: No cyanosis, clubbing, or pedal edema. NEUROLOGICAL: Gross neurological examination did not reveal any focal deficits. SKIN: No rashes. - Labs CBC & Chem 7: 12/20/22 06:37 12/20/22 06:37 Labs: Abnormal Lab Results - Last 24 Hours (Table) 12/19/22 12/19/22 12/19/22 Range/Units 13:21 17:13 19:41 RBC (4.10-5.20) X 10*6/uL Hgb (12.0-15.0) d/dL Hct (37.2-46.3) % Sodium (135-145) mmol/L Potassium 2.8 L (3.5-5.1) mmol/L Chloride (96-109) mmol/L BUN (9.0-27.0) mg/dL BUN/Creatinine Ratio (12.00-20.00) Ratio Glucose (70-110) mg/dL POC Glucose (mg/dL) 298 H 155 H (70-110) mg/dL Hemoglobin A1c (<=6.0) % Calcium (8.7-10.3) mg/dL Total Protein (6.2-8.2) d/dL Albumin (3.8-4.9) d/dL 12/19/22 12/20/22 12/20/22 Range/Units 20:20 06:37 06:37 RBC 4.00 L (4.10-5.20) X 10*6/uL Hgb 11.5 L (12.0-15.0) d/dL Hct 35.8 L (37.2-46.3) % Sodium (135-145) mmol/L Potassium (3.5-5.1) mmol/L Chloride (96-109) mmol/L BUN (9.0-27.0) mg/dL BUN/Creatinine Ratio (12.00-20.00) Ratio Glucose (70-110) mg/dL POC Glucose (mg/dL) 304 H (70-110) mg/dL Hemoglobin A1c 8.6 H (<=6.0) % Calcium (8.7-10.3) mg/dL Total Protein (6.2-8.2) d/dL Albumin (3.8-4.9) d/dL 12/20/22 12/20/22 12/20/22 Range/Units 06:37 07:13 11:40 RBC (4.10-5.20) X 10*6/uL Hgb (12.0-15.0) d/dL Hct (37.2-46.3) % Sodium 146 H (135-145) mmol/L Potassium (3.5-5.1) mmol/L Chloride 112 H (96-109) mmol/L BUN 6.6 L (9.0-27.0) mg/dL BUN/Creatinine Ratio 7.33 L (12.00-20.00) Ratio Glucose 172 H (70-110) mg/dL POC Glucose (mg/dL) 154 H 275 H (70-110) mg/dL Hemoglobin A1c (<=6.0) % Calcium 7.2 L (8.7-10.3) mg/dL Total Protein 5.1 L (6.2-8.2) d/dL Albumin 3.4 L (3.8-4.9) d/dL Microbiology - Last 24 Hours (Table) 12/18/22 15:53 Blood Culture - Preliminary Blood Assessment and Plan Assessment: Assessment and plan * Acute gastritis with intractable nausea vomiting * Severe hypokalemia, hypomagnesemia * Acute kidney injury * History of seizure disorder * History of seasonal affective disorder * History of pulmonary embolism * Recent admission for urinary tract infection * Lactic acidosis secondary to dehydration * Diabetes mellitus type 2 * In regards to acute gastritis patient started on IV Protonix, use Zofran as needed for nausea. Continue with serial abdominal exam * In regards to electrolyte abnormality and acute kidney injury continue patient on IV hydration at potassium and magnesium replaced * In regards to diabetes mellitus continue Accu-Cheks before meals at bedtime >> continue patient on correctional insulin monitor for hypoglycemia oral hypoglycemic agents resumed except metformin, HbA1c 8.6 * CODE STATUS is full code
[2022-12-20 17:48] LABS: Glucose,Whole Blood 123 mg/dL (70-110)
[2022-12-20 20:13] LABS: Glucose,Whole Blood 211 mg/dL (70-110)
[2022-12-20] MEDS: cloZAPine 100 MG TAB PO SCH (20:16)
[2022-12-20] MEDS: LORazepam 0.5 MG TAB PO PRN (20:44)
[2022-12-21] MEDS: MAGNESIUM OXIDE 400 MG TAB PO SCH ×4 (03:48→22:32)
[2022-12-21 06:15] LABS: Basophils % (A) 0 %; Eosinophils % (A) 0 %; HCT 34.9 % (34.0-46.0); HGB 11.7 gm/dL (11.4-16.0); Lymphocytes # (A) 1.7 k/uL (1.0-4.8); Lymphocytes % (A) 35 %; MCH 30.1 pg (25.0-35.0); MCHC 33.6 g/dL (31.0-37.0); MCV 89.5 fL (80.0-100.0); Mean Platelet Volume 8.9; Monocytes # (A) 0.3 k/uL (0-1.0); Monocytes % (A) 5 %; Neutrophils # (A) 2.8 k/uL (1.3-7.7); Neutrophils % (A) 58 %; Platelet Count 146 k/uL (150-450); RDW 14.3 % (11.5-15.5); WBC 4.8 k/uL (3.8-10.6)
[2022-12-21 07:24] LABS: Glucose,Whole Blood 156 mg/dL (70-110)
[2022-12-21 09:05] LABS: Blood Urea Nitrogen 7.9 mg/dL (9.0-27.0); Calcium 7.8 mg/dL (8.7-10.3); Carbon Dioxide 24.8 mmol/L (21.6-31.8); Chloride 110 mmol/L (96-109); Glucose 178 mg/dL (70-110); Magnesium 1.6 mg/dL (1.5-2.4); Potassium 4.2 mmol/L (3.5-5.5); Sodium 146 mmol/L (135-145)
[2022-12-21] MEDS: propylthiouraciL 50 MG TAB PO SCH (09:23)
[2022-12-21] MEDS: TAMSULOSIN 0.4 MG CAP.ER.24H PO SCH (09:23)
[2022-12-21] MEDS: methIMAzole 5 MG TAB PO SCH (09:24)
[2022-12-21] MEDS: NICOTINE 21MG/24HR PATCH TRANSDERM SCH (09:24)
[2022-12-21] MEDS: METOPROLOL TARTRATE 25 MG TAB PO SCH ×2 (09:24→22:32)
[2022-12-21] MEDS: GLIMEPIRIDE 2 MG TAB PO SCH ×2 (09:24→22:33)
[2022-12-21] MEDS: PANTOPRAZOLE 40 MG/10 ML VIAL IVP SCH ×2 (09:24→22:32)
[2022-12-21] MEDS: INSULIN ASPART (NovoLOG) 100 UNIT/ML VIAL SQ SCH ×4 (09:24→22:33)
[2022-12-21] MEDS: ATORVASTATIN 40 MG TAB PO SCH (09:24)
[2022-12-21] MEDS ORDERED: SODIUM CHLORIDE 0.9% 1,000 ML IV SCH (09:45)
--- NOTE | 2022-12-21 11:53 | P.PN ---
Subjective Progress Note Date: 12/21/22 * 57-year-old patient with past medical history significant for DVT, hypothyroidism, history of pulmonary embolism, history of seizure disorder, neurogenic bladder with bladder stimulator implant in place, history of depression, seasonal affective disorder and bipolar disorder presented to the emergency department with complains of recurrent nausea vomiting. Patient was recently admitted discharge on 12/07/22 treated for urinary tract infection discharge on oral antibiotic to complete one week antibiotic course. Patient was discharged to medicine [place] and presents with intractable nausea vomiting. Workup initiated in ER included lipase levels which were within normal limits, liver profile obtained which were normal HEENT AST and bilirubin levels. Patient was noted to have severe electrolyte abnormalities including potassium of 2.9 and No 1.06. Hepatology showed WBC within normal limits myeloma 13.7 platelet count of 149 * CT abdomen and pelvis obtained in ER negative for acute intra-abdominal process or obstruction. * Patient was noted to have elevated lactate on admission secondary to dehydration however significant improvement was noted after hydration * Admitted to medical floor and resuscitated with fluid along with electrolyte replacement * 12/20/22: Patient seen and evaluated bedside patient had episode of nausea and one episode of vomiting after breakfast. Continue to monitor electrolytes, continue IV hydration. Patient requesting discharge. Patient counseled regarding fluid resuscitation and electrolyte correction. Denies of chest pain shortness of breath diarrhea * 12/21/22: Patient seen and evaluated bedside patient is alert to person and situation. WBC within normal limits. Serum chemistry shows sodium of 146 potassium 4.2 BUN and creatinine within normal limits, , follow-up CBC basic metabolic panel ordered. Continue patient on IV antibiotic Objective - Vital Signs Vital signs: Vital Signs Temp 98.7 F 12/21/22 07:20 Pulse 69 12/21/22 07:20 Resp 18 12/21/22 07:20 BP 127/77 12/21/22 07:20 Pulse Ox 96 12/21/22 07:20 FiO2 Intake & Output 12/20/22 12/21/22 12/21/22 18:59 06:59 18:59 Intake Total 240 540 Output Total 2401 2600 350 Balance -2401 -2360 190 Intake: Oral 240 540 Output: Urine 2400 2600 350 Urine/Stool Mix 1 Other: Voiding Method Indwelling Catheter Indwelling Catheter Indwelling Catheter # Bowel Movements 1 - Exam PHYSICAL EXAMINATION: GENERAL: The patient is alert and oriented x 3 , not in any acute distress. Well developed, well nourished. HEENT: Pupils are round and equally reacting to light. EOMI. CARDIOVASCULAR: S1 and S2 present. No murmurs, rubs, or gallops. PULMONARY: Chest is clear to auscultation, no wheezing or crackles. ABDOMEN: Soft, nontender, nondistended, normoactive bowel sounds. MUSCULOSKELETAL: No joint swelling or deformity. EXTREMITIES: No cyanosis, clubbing, or pedal edema. NEUROLOGICAL: Gross neurological examination did not reveal any focal deficits. SKIN: No rashes. - Labs CBC & Chem 7: 12/21/22 05:45 12/21/22 05:45 Labs: Abnormal Lab Results - Last 24 Hours (Table) 12/20/22 12/20/22 12/21/22 Range/Units 17:23 20:12 05:45 Plt Count 146 L (150-450) k/uL Sodium (135-145) mmol/L Chloride (96-109) mmol/L BUN (9.0-27.0) mg/dL BUN/Creatinine Ratio (12.00-20.00) Ratio Glucose (70-110) mg/dL POC Glucose (mg/dL) 123 H 211 H (70-110) mg/dL Calcium (8.7-10.3) mg/dL 12/21/22 12/21/22 Range/Units 05:45 07:22 Plt Count (150-450) k/uL Sodium 146 H (135-145) mmol/L Chloride 110 H (96-109) mmol/L BUN 7.9 L (9.0-27.0) mg/dL BUN/Creatinine Ratio 7.90 L (12.00-20.00) Ratio Glucose 178 H (70-110) mg/dL POC Glucose (mg/dL) 156 H (70-110) mg/dL Calcium 7.8 L (8.7-10.3) mg/dL Microbiology - Last 24 Hours (Table) 12/18/22 15:53 Blood Culture - Preliminary Blood 12/18/22 15:45 Blood Culture - Preliminary Blood Assessment and Plan Assessment: Assessment and plan * Acute gastritis with intractable nausea vomiting * Severe hypokalemia, hypomagnesemia * Acute kidney injury * History of seizure disorder * History of seasonal affective disorder * History of pulmonary embolism * Recent admission for urinary tract infection * Lactic acidosis secondary to dehydration * Diabetes mellitus type 2 * In regards to acute gastritis patient started on IV Protonix, use Zofran as needed for nausea. Continue with serial abdominal exam, requested EGD during this hospitalization * In regards to electrolyte abnormality and acute kidney injury continue patient on IV hydration at potassium and magnesium replaced, follow-up on I panel * In regards to diabetes mellitus continue Accu-Cheks before meals at bedtime >> continue patient on correctional insulin monitor for hypoglycemia oral hypoglycemic agents resumed except metformin, HbA1c 8.6 * Regards to history of pulmonary embolism patient is on Eliquis which is briefly held for procedure will be resumed post procedure * CODE STATUS is full code
[2022-12-21] MEDS: DEXTROSE 5%-0.45% NACL 1,000 ML IV SCH (11:57)
[2022-12-21 12:11] LABS: Glucose,Whole Blood 333 mg/dL (70-110)
--- NOTE | 2022-12-21 12:47 | P.GSCN ---
History of Present Illness Consult date: 12/21/22 History of present illness: CHIEF COMPLAINT: Vomiting HISTORY OF PRESENT ILLNESS: This is a 57-year-old female who presented with nausea and vomiting 1-1/2 days. She reports her last episode of vomiting yesterday. She is also had evidence of electrolyte imbalance and renal insufficiency. She's receiving IV fluids. Electrolytes have been corrected. She denies any blood in the emesis. Patient reports having normal bowel movements. She does also report that when she eats solid food she feels that they are sticking when she tries to swallow. Patient is a poor historian. She's never had EGD. She is on Eliquis for history of PE. Last dose was last night. Surgical service has been consulted for recurrent vomiting and for EGD. PAST MEDICAL HISTORY: See below PAST SURGICAL HISTORY: See below MEDICATIONS: See below ALLERGIES: See below SOCIAL HISTORY: No illicit drug use. REVIEW OF SYSTEMS: CONSTITUTIONAL: Denies fever or chills. HEENT: Denies blurred vision, vision changes, or eye pain. Denies hemoptysis CARDIOVASCULAR: Denies chest pain or pressure. RESPIRATORY: No shortness of breath. GASTROINTESTINAL: See HPI for pertinent findings HEMATOLOGIC: Denies bleeding disorders. GENITOURINARY: Denies any blood in urine or increased urinary frequency. SKIN: Denies pruitis. Denies rash. PHYSICAL EXAM: VITAL SIGNS: Reviewed GENERAL: Well-developed in no acute distress. ABDOMEN: Soft. Nondistended. Nontender NEUROLOGIC: Alert and oriented. Cranial nerves II through XII grossly intact. LABORATORY DATA: WBC 4.8 Hgb 11.7 plt 146 Na 146 k 2.8 up to 4.2 cr 1.0 Magnesium 1.4 up to 1.6 AST 16 ALT 22 alk phos 45 IMAGING: Computed tomography scan of the pelvis reports no acute changes within the abdomen or pelvis. Moderate atrophy of the left kidney. No bowel obstruction, bowel inflammation, free intraperitoneal air or fluid ASSESSMENT: 1. Nausea and vomiting 2. Dysphagia 3. Electrolyte imbalance 4. Renal insufficiency PLAN: -Patient scheduled for EGD tomorrow with Dr. Peralta -Keep patient nothing by mouth after midnight -Continue supportive care Thank you for this consultation Physician [employer] note has been reviewed by physician. Signing provider agrees with the documented findings, assessment, and plan of care. Past Medical History Past Medical History: COPD, Diabetes Mellitus, GERD/Reflux, Hypertension, Osteoarthritis (OA), Pulmonary Embolus (PE), Seizure Disorder Additional Past Medical History / Comment(s): Hx of colon polyps, neuorgenic bladder, anemia, self caths at home, thyroid nodule, UTI with hospital admission september 2021- klebsiella treated with ceftin History of Any Multi-Drug Resistant Organisms: ESBL Year Discovered:: 12/01/22 MDRO Source:: Urine Past Surgical History: Back Surgery, Breast Surgery, Ear Surgery Additional Past Surgical History / Comment(s): hunter breast reduction, breast biopsy, bladder stimulator implant, skin grafts to ear Past Anesthesia/Blood Transfusion Reactions: No Reported Reaction Past Psychological History: Bipolar, Depression, Schizoaffective Disorder Smoking Status: Current some day smoker Past Alcohol Use History: None Reported Past Drug Use History: None Reported - Past Family History Father Family Medical History: Cancer Additional Family Medical History / Comment(s): lung Sister(s) Family Medical History: Cancer Additional Family Medical History / Comment(s): ovarian Medications and Allergies Home Medications Medication Instructions Recorded Confirmed Type fluPHENAZine decanoate [Prolixin 50 mg IM Q14D 01/21/16 12/18/22 History Decanoate] Tamsulosin [Flomax] 0.4 mg PO DAILY 03/13/17 12/18/22 History Omeprazole 20 mg PO BID 07/22/20 12/18/22 History Apixaban [Eliquis] 5 mg PO BID 10/24/20 12/18/22 History fluvoxaMINE MALEATE [Luvox] 100 mg PO HS 10/24/20 12/18/22 History Atorvastatin [Lipitor] 40 mg PO HS 10/19/21 12/18/22 History Nicotine 21Mg/24Hr Patch [Habitrol] 1 patch TRANSDERM DAILY 03/19/22 12/18/22 History sitaGLIPtin [Januvia] 100 mg PO DAILY 03/19/22 12/18/22 History Albuterol Inhaler [Ventolin Hfa 2 puff INHALATION RT-Q6H PRN 11/02/22 12/18/22 History Inhaler] Ergocalciferol (Vitamin D2) 1,250 mcg PO SA 11/02/22 12/18/22 History [Drisdol (50,000 Iu)] Metoprolol Tartrate [Lopressor] 25 mg PO BID 11/02/22 12/18/22 History Tiotropium Br/Olodaterol HCl 1 puff INHALATION RT-DAILY PRN 11/02/22 12/18/22 History [Stiolto Respimat Inhal [place]] methIMAzole [Tapazole] 5 mg PO DAILY 11/02/22 12/18/22 History Acetaminophen Tab [Tylenol] 650 mg PO Q6HR PRN tab 12/07/22 12/18/22 Rx LORazepam [Ativan] 0.5 mg PO DAILY PRN #2 tab 12/07/22 12/18/22 Rx traZODone HCL [Desyrel] 50 mg PO HS PRN tab 12/07/22 12/18/22 Rx Cholecalciferol [Vitamin D3 (25 25 mcg PO DAILY 12/18/22 12/18/22 History Mcg = 1000 Iu)] Glimepiride [Amaryl] 4 mg PO BID 12/18/22 12/18/22 History Insulin Lispro [humaLOG Kwikpen] See Protocol SQ ACHS 12/18/22 12/18/22 History Ipratropium-Albuterol Nebulize 3 ml INHALATION RT-Q6H PRN 12/18/22 12/18/22 History [Duoneb 0.5 mg-3 mg/3 ml Soln] Magnesium Oxide [Mag-Ox] 400 mg PO Q6H 12/18/22 12/18/22 History Metoclopramide [Reglan] 5 mg PO Q8H PRN 12/18/22 12/18/22 History Ondansetron [Zofran] 4 mg PO Q6H PRN 12/18/22 12/18/22 History cloZAPine [Clozaril] 200 mg PO HS 12/18/22 12/18/22 History metFORMIN HCL [Glucophage] 500 mg PO BID 12/18/22 12/18/22 History Allergies Allergy/AdvReac Type Severity Reaction Status Date / Time haloperidol [From Haldol] AdvReac Muscles Verified 12/18/22 14:52 freeze up in arms and hands haloperidol lactate AdvReac Muscles Verified 12/18/22 14:52 [From Haldol] freeze up in arms and hands Surgical - Exam Vital Signs Temp Pulse Resp BP Pulse Ox 98.0 F 124 H 18 145/88 98 12/18/22 14:47 12/18/22 14:47 12/18/22 14:47 12/18/22 14:47 12/18/22 14:47 Results - Labs 12/21/22 05:45 12/21/22 05:45 Abnormal Lab Results - Last 24 Hours (Table) 12/20/22 12/20/22 12/20/22 Range/Units 06:37 06:37 06:37 RBC 4.00 L (4.10-5.20) X 10*6/uL Hgb 11.5 L (12.0-15.0) d/dL Hct 35.8 L (37.2-46.3) % Plt Count (150-450) k/uL Sodium 146 H (135-145) mmol/L Chloride 112 H (96-109) mmol/L BUN 6.6 L (9.0-27.0) mg/dL BUN/Creatinine Ratio 7.33 L (12.00-20.00) Ratio Glucose 172 H (70-110) mg/dL POC Glucose (mg/dL) (70-110) mg/dL Hemoglobin A1c 8.6 H (<=6.0) % Calcium 7.2 L (8.7-10.3) mg/dL Total Protein 5.1 L (6.2-8.2) d/dL Albumin 3.4 L (3.8-4.9) d/dL 12/20/22 12/20/22 12/20/22 Range/Units 11:40 17:23 20:12 RBC (4.10-5.20) X 10*6/uL Hgb (12.0-15.0) d/dL Hct (37.2-46.3) % Plt Count (150-450) k/uL Sodium (135-145) mmol/L Chloride (96-109) mmol/L BUN (9.0-27.0) mg/dL BUN/Creatinine Ratio (12.00-20.00) Ratio Glucose (70-110) mg/dL POC Glucose (mg/dL) 275 H 123 H 211 H (70-110) mg/dL Hemoglobin A1c (<=6.0) % Calcium (8.7-10.3) mg/dL Total Protein (6.2-8.2) d/dL Albumin (3.8-4.9) d/dL 12/21/22 12/21/22 12/21/22 Range/Units 05:45 05:45 07:22 RBC (4.10-5.20) X 10*6/uL Hgb (12.0-15.0) d/dL Hct (37.2-46.3) % Plt Count 146 L (150-450) k/uL Sodium 146 H (135-145) mmol/L Chloride 110 H (96-109) mmol/L BUN 7.9 L (9.0-27.0) mg/dL BUN/Creatinine Ratio 7.90 L (12.00-20.00) Ratio Glucose 178 H (70-110) mg/dL POC Glucose (mg/dL) 156 H (70-110) mg/dL Hemoglobin A1c (<=6.0) % Calcium 7.8 L (8.7-10.3) mg/dL Total Protein (6.2-8.2) d/dL Albumin (3.8-4.9) d/dL Microbiology - Last 24 Hours (Table) 12/18/22 15:53 Blood Culture - Preliminary Blood 12/18/22 15:45 Blood Culture - Preliminary Blood Diabetes panel 12/20/22 12/20/22 12/21/22 Range/Units 06:37 06:37 05:45 Sodium 146 H 146 H (135-145) mmol/L Potassium 4.1 4.2 (3.5-5.5) mmol/L Chloride 112 H 110 H (96-109) mmol/L Carbon Dioxide 23.6 24.8 (21.6-31.8) mmol/L BUN 6.6 L 7.9 L (9.0-27.0) mg/dL Creatinine 0.9 1.0 (0.6-1.5) mg/dL Glucose 172 H 178 H (70-110) mg/dL Hemoglobin A1c 8.6 H (<=6.0) % Calcium 7.2 L 7.8 L (8.7-10.3) mg/dL AST 16 (13-35) U/L ALT 22 (8-44) U/L Alkaline Phosphatase 45 (41-126) U/L Total Protein 5.1 L (6.2-8.2) d/dL Albumin 3.4 L (3.8-4.9) d/dL Calcium panel 12/20/22 12/21/22 Range/Units 06:37 05:45 Calcium 7.2 L 7.8 L (8.7-10.3) mg/dL Phosphorus 2.8 (2.4-5.1) mg/dL Albumin 3.4 L (3.8-4.9) d/dL Pituitary panel 12/20/22 12/21/22 Range/Units 06:37 05:45 Sodium 146 H 146 H (135-145) mmol/L Potassium 4.1 4.2 (3.5-5.5) mmol/L Chloride 112 H 110 H (96-109) mmol/L Carbon Dioxide 23.6 24.8 (21.6-31.8) mmol/L BUN 6.6 L 7.9 L (9.0-27.0) mg/dL Creatinine 0.9 1.0 (0.6-1.5) mg/dL Glucose 172 H 178 H (70-110) mg/dL Calcium 7.2 L 7.8 L (8.7-10.3) mg/dL Adrenal panel 12/20/22 12/21/22 Range/Units 06:37 05:45 Sodium 146 H 146 H (135-145) mmol/L Potassium 4.1 4.2 (3.5-5.5) mmol/L Chloride 112 H 110 H (96-109) mmol/L Carbon Dioxide 23.6 24.8 (21.6-31.8) mmol/L BUN 6.6 L 7.9 L (9.0-27.0) mg/dL Creatinine 0.9 1.0 (0.6-1.5) mg/dL Glucose 172 H 178 H (70-110) mg/dL Calcium 7.2 L 7.8 L (8.7-10.3) mg/dL Total Bilirubin 0.3 (0.3-1.2) mg/dL AST 16 (13-35) U/L ALT 22 (8-44) U/L Alkaline Phosphatase 45 (41-126) U/L Total Protein 5.1 L (6.2-8.2) d/dL Albumin 3.4 L (3.8-4.9) d/dL
[2022-12-21 17:09] LABS: Glucose,Whole Blood 99 mg/dL (70-110)
[2022-12-21 20:19] LABS: Glucose,Whole Blood 237 mg/dL (70-110)
[2022-12-21] MEDS: cloZAPine 100 MG TAB PO SCH (22:33)
[2022-12-22] MEDS: MAGNESIUM OXIDE 400 MG TAB PO SCH ×4 (03:18→20:11)
[2022-12-22 07:05] LABS: Glucose,Whole Blood 256 mg/dL (70-110)
[2022-12-22] MEDS: DEXTROSE 5%-0.45% NACL 1,000 ML IV SCH ×2 (07:56→16:42)
[2022-12-22] MEDS: NICOTINE 21MG/24HR PATCH TRANSDERM SCH (07:57)
[2022-12-22] MEDS: TAMSULOSIN 0.4 MG CAP.ER.24H PO SCH (07:57)
[2022-12-22] MEDS: PANTOPRAZOLE 40 MG/10 ML VIAL IVP SCH ×2 (07:57→20:11)
[2022-12-22] MEDS: METOPROLOL TARTRATE 25 MG TAB PO SCH ×2 (07:58→20:10)
[2022-12-22] MEDS: INSULIN ASPART (NovoLOG) 100 UNIT/ML VIAL SQ SCH ×4 (07:58→20:29)
[2022-12-22] MEDS: ATORVASTATIN 40 MG TAB PO SCH (07:59)
[2022-12-22] MEDS: GLIMEPIRIDE 2 MG TAB PO SCH ×2 (07:59→20:11)
[2022-12-22] MEDS: propylthiouraciL 50 MG TAB PO SCH (07:59)
[2022-12-22] MEDS: methIMAzole 5 MG TAB PO SCH (07:59)
[2022-12-22 10:49] LABS: HCT 34.7 % (37.2-46.3); HGB 11.4 d/dL (12.0-15.0); MCH 29.2 pg (27.0-32.0); MCHC 32.9 d/dL (32.0-37.0); Mean Platelet Volume 12.1 FL (9.5-12.2); NRBC Per 100 WBC 0 X 10*3/uL (0.00-0.01); Platelet Count 168 X 10*3/uL (140-440); RDW 14.1 % (11.5-14.5); WBC 4.79 X 10*3/uL (4.50-10.00)
[2022-12-22 11:03] LABS: Magnesium 1.4 mg/dL (1.5-2.4)
[2022-12-22 11:07] LABS: Glucose,Whole Blood 172 mg/dL (70-110)
[2022-12-22 11:28] LABS: BUN/Creat Ratio 9.78 Ratio (12.00-20.00); Blood Urea Nitrogen 8.8 mg/dL (9.0-27.0); Calcium 8.2 mg/dL (8.7-10.3); Carbon Dioxide 24.3 mmol/L (21.6-31.8); Chloride 107 mmol/L (96-109); Glucose 281 mg/dL (70-110); Potassium 4.6 mmol/L (3.5-5.5); Sodium 141 mmol/L (135-145)
[2022-12-22 11:57] LABS: Glucose,Whole Blood 155 mg/dL (70-110)
[2022-12-22] MEDS: IPRATROPIUM-ALBUTEROL 3 ML NEB INHALATION PRN (12:40)
--- NOTE | 2022-12-22 12:43 | P.PN ---
Subjective Progress Note Date: 12/22/22 * 57-year-old patient with past medical history significant for DVT, hypothyroidism, history of pulmonary embolism, history of seizure disorder, neurogenic bladder with bladder stimulator implant in place, history of depression, seasonal affective disorder and bipolar disorder presented to the emergency department with complains of recurrent nausea vomiting. Patient was recently admitted discharge on 12/07/22 treated for urinary tract infection discharge on oral antibiotic to complete one week antibiotic course. Patient was discharged to medicine [place] and presents with intractable nausea vomiting. Workup initiated in ER included lipase levels which were within normal limits, liver profile obtained which were normal HEENT AST and bilirubin levels. Patient was noted to have severe electrolyte abnormalities including potassium of 2.9 and No 1.06. Hepatology showed WBC within normal limits myeloma 13.7 platelet count of 149 * CT abdomen and pelvis obtained in ER negative for acute intra-abdominal process or obstruction. * Patient was noted to have elevated lactate on admission secondary to dehydration however significant improvement was noted after hydration * Admitted to medical floor and resuscitated with fluid along with electrolyte replacement * 12/20/22: Patient seen and evaluated bedside patient had episode of nausea and one episode of vomiting after breakfast. Continue to monitor electrolytes, continue IV hydration. Patient requesting discharge. Patient counseled regarding fluid resuscitation and electrolyte correction. Denies of chest pain shortness of breath diarrhea * 12/21/22: Patient seen and evaluated bedside patient is alert to person and situation. WBC within normal limits. Serum chemistry shows sodium of 146 potassium 4.2 BUN and creatinine within normal limits, , follow-up CBC basic metabolic panel ordered. Continue patient on IV antibiotic * 12/22/22: Patient seen and evaluated bedside, patient is alert to person and situation. Patient scheduled for EGD today, serum chemistry reviewed potassium within normal limits however magnesium continue to remain low 1.4. Potassium and magnesium to be followed up. Stool cultures as well as stool studies ordered pending. Based on EGD results we'll determine next steps. Dye to bleed was as tolerated. For patient to be discharged she needs to tolerate diet. Patient guardian Nara wants to be updated regarding care plan. If EGD negative patient will benefit from outpatient GI follow-up for colonoscopy. Barrier to discharge his recurrent nausea and vomiting. At this point patient is nothing by mouth for EGD Objective - Vital Signs Vital signs: Vital Signs Temp 97.4 F L 12/22/22 07:40 Pulse 73 12/22/22 07:40 Resp 14 12/22/22 07:40 BP 132/80 12/22/22 07:40 Pulse Ox 95 12/22/22 07:40 FiO2 Intake & Output 12/21/22 12/22/22 12/22/22 18:59 06:59 18:59 Intake Total 1200 590 Output Total 3450 2800 725 Balance -2250 -2210 -725 Intake: Oral 1200 590 Output: Urine 3450 2800 725 Other: Voiding Method Indwelling Catheter Indwelling Catheter Indwelling Catheter # Bowel Movements 0 - Exam PHYSICAL EXAMINATION: GENERAL: The patient is alert and oriented x 3 , not in any acute distress. Well developed, well nourished. HEENT: Pupils are round and equally reacting to light. EOMI. CARDIOVASCULAR: S1 and S2 present. No murmurs, rubs, or gallops. PULMONARY: Chest is clear to auscultation, no wheezing or crackles. ABDOMEN: Soft, nontender, nondistended, normoactive bowel sounds. MUSCULOSKELETAL: No joint swelling or deformity. EXTREMITIES: No cyanosis, clubbing, or pedal edema. NEUROLOGICAL: Gross neurological examination did not reveal any focal deficits. SKIN: No rashes. - Labs CBC & Chem 7: 12/22/22 05:47 12/22/22 05:47 Labs: Abnormal Lab Results - Last 24 Hours (Table) 12/21/22 12/22/22 12/22/22 Range/Units 20:18 05:47 05:47 RBC 3.90 L (4.10-5.20) X 10*6/uL Hgb 11.4 L (12.0-15.0) d/dL Hct 34.7 L (37.2-46.3) % BUN 8.8 L (9.0-27.0) mg/dL BUN/Creatinine Ratio 9.78 L (12.00-20.00) Ratio Glucose 281 H (70-110) mg/dL POC Glucose (mg/dL) 237 H (70-110) mg/dL Calcium 8.2 L (8.7-10.3) mg/dL Magnesium 1.4 L (1.5-2.4) mg/dL C-Reactive Protein 0.90 H (0.00-0.80) mg/dL 12/22/22 12/22/22 12/22/22 Range/Units 07:04 11:05 11:56 RBC (4.10-5.20) X 10*6/uL Hgb (12.0-15.0) d/dL Hct (37.2-46.3) % BUN (9.0-27.0) mg/dL BUN/Creatinine Ratio (12.00-20.00) Ratio Glucose (70-110) mg/dL POC Glucose (mg/dL) 256 H 172 H 155 H (70-110) mg/dL Calcium (8.7-10.3) mg/dL Magnesium (1.5-2.4) mg/dL C-Reactive Protein (0.00-0.80) mg/dL Microbiology - Last 24 Hours (Table) 12/18/22 15:53 Blood Culture - Preliminary Blood 12/18/22 15:45 Blood Culture - Preliminary Blood Assessment and Plan Assessment: Assessment and plan * Acute gastritis with intractable nausea vomiting * Severe hypokalemia, hypomagnesemia * Acute kidney injury resolved * History of seizure disorder * History of seasonal affective disorder * History of pulmonary embolism * Recent admission for urinary tract infection * History of hyperthyroid * Lactic acidosis secondary to dehydration * Diabetes mellitus type 2 * In regards to acute gastritis patient started on IV Protonix, use Zofran as needed for nausea. Continue with serial abdominal exam, requested EGD during this hospitalization * In regards to electrolyte abnormality and acute kidney injury continue patient on IV hydration at potassium and magnesium replaced, follow-up on I panel * In regards to diabetes mellitus continue Accu-Cheks before meals at bedtime >> continue patient on correctional insulin monitor for hypoglycemia oral hypoglycemic agents resumed except metformin, HbA1c 8.6 * Regards to history of pulmonary embolism patient is on Eliquis which is briefly held for procedure EGD, please resume postprocedure 12/23 * In regards to hyperthyroid, continue methimazole and propylthiouracil follow- up with endocrinology, per previous DC summary PTU was discontinued however on admission med rec patient seen to be taking this medication hence resumed patient follows up with endocrinology outpatient Dr Augustin, we'll defer further management to Endo * CODE STATUS is full code
[2022-12-22] MEDS: MAGNESIUM SULFATE-D5W PMX 1 GM in DEXTROSE/WATER 1 100ML.BAG IVPB SCH ×2 (12:53→16:44)
[2022-12-22] MEDS ORDERED: IV FLUID CONTINUATION 700 ML IV ONE (14:01)
[2022-12-22] MEDS ORDERED: PROPOFOL 10 MG/ML 20 ML VIAL IV ONE (14:01)
[2022-12-22] MEDS ORDERED: LIDOCAINE 1% INJ 10MG/ML (20 ML MDV) ONE (14:01)
--- NOTE | 2022-12-22 14:23 | P.PCN ---
Date of Procedure: 12/22/22 Procedure(s) Performed: Preoperative Dx: Intractable vomiting, gastric wall thickening Postoperative Dx: Diffuse gastritis Procedure: EGD with Bx Anesthesia: Sedation Endoscopist: Dr. Peralta Specimens: Antrum, body Endoscopic Procedure: The patient was on the endoscopy table in the left decubitus position. The Olympus gastroscope was inserted into the oropharynx and passed under direct visualization to the region of the third portion of the duodenum. From that point the scope was slowly withdrawn inspecting all surfaces carefully. There were no neoplastic inflammatory or polypoid lesions throughout the duodenum. The pylorus was widely patent. The stomach was carefully inspected. There was mild gastritis seen diffusely. The gastric folds were slightly thickened although soft and pliable throughout. A biopsy of the antrum and of the body of the stomach to place. Retroflexion revealed a n ormal hiatus. The esophagus was then carefully examined. There were no neoplastic inflammatory or polypoid lesions throughout the visualized esophagus. The patient was then taken to the recovery room in stable condition per anesthesia guidelines. Recommendations: Patient with CAT scan and endoscopic findings showing diffuse gastric wall thickening. 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 Await biopsy results. Spoke with the patient's medical power of trust and estates attorney. Apparently she was told by the patient's county agent that symptoms may be secondary to recent changes in her thyroid medication. They plan to stop her thyroid medications at this time apparently. Continue antiacids. Will follow.
[2022-12-22 17:14] LABS: Glucose,Whole Blood 365 mg/dL (70-110)
[2022-12-22 20:03] LABS: Glucose,Whole Blood 293 mg/dL (70-110)
[2022-12-22] MEDS: LORazepam 0.5 MG TAB PO PRN (20:11)
[2022-12-22] MEDS: cloZAPine 100 MG TAB PO SCH (20:11)
[2022-12-23] MEDS: MAGNESIUM OXIDE 400 MG TAB PO SCH ×4 (05:43→23:33)
[2022-12-23 05:55] LABS: Glucose,Whole Blood 245 mg/dL (70-110)
[2022-12-23 07:47] LABS: Glucose,Whole Blood 225 mg/dL (70-110)
[2022-12-23] MEDS: NICOTINE 21MG/24HR PATCH TRANSDERM SCH (09:05)
[2022-12-23] MEDS: methIMAzole 5 MG TAB PO SCH (09:05)
[2022-12-23] MEDS: TAMSULOSIN 0.4 MG CAP.ER.24H PO SCH (09:06)
[2022-12-23] MEDS: PANTOPRAZOLE 40 MG/10 ML VIAL IVP SCH ×2 (09:06→23:34)
[2022-12-23] MEDS: GLIMEPIRIDE 2 MG TAB PO SCH ×2 (09:06→23:34)
[2022-12-23] MEDS: ATORVASTATIN 40 MG TAB PO SCH (09:06)
[2022-12-23] MEDS: INSULIN ASPART (NovoLOG) 100 UNIT/ML VIAL SQ SCH ×4 (09:06→23:35)
[2022-12-23] MEDS: METOPROLOL TARTRATE 25 MG TAB PO SCH ×2 (09:06→23:33)
--- NOTE | 2022-12-23 11:39 | P.PN ---
Subjective Progress Note Date: 12/23/22 CHIEF COMPLAINT: Vomiting HISTORY OF PRESENT ILLNESS: Patient status post EGD revealing diffuse gastritis and biopsy. Patient denies any abdominal pain. She is tolerating diet. No nausea or vomiting. Afebrile PHYSICAL EXAM: VITAL SIGNS: Reviewed. GENERAL: Well-developed in no acute distress. ABDOMEN: Soft. Nondistended. Nontender. ASSESSMENT: 1. Nausea and vomiting 2. Gastric wall thickening PLAN: -Continue PPI -Patient's medical power of associate attorney was apparently told by the patient's collections manager that symptoms may be secondary to recent changes in her thyroid medication. They plan to stop her thyroid medications -Follow up on biopsy result -Continue regular diet Physician [employer] note has been reviewed by physician. Signing provider agrees with the documented findings, assessment, and plan of care. I have personally seen and examined the patient, reviewed the RADAR MECHANIC /PAs history, exam and MDM and agree with the assessment and plan as written. Based on total visit time, I have performed more than 50% of the visit. As above: Patient feels well today. No pain. Continue regular diet. Continue antiacids. Await biopsy results. We'll sign off. Please call if needed. Objective - Vital Signs Vital signs: Vital Signs Temp 98.5 F 12/23/22 07:27 Pulse 72 12/23/22 07:27 Resp 20 12/23/22 07:27 BP 131/83 12/23/22 07:27 Pulse Ox 93 L 12/23/22 07:27 FiO2 Intake & Output 12/22/22 12/23/22 12/23/22 18:59 06:59 18:59 Intake Total 900 1200 Output Total 2670 2400 750 Balance -1770 -1200 -750 Intake: IV 100 Intake, IV Titration 800 Amount Dextrose 5%-0.45% NaCl 1, 600 000 ml @ 50 mls/hr IV . Q20H JONES Rx#:[id number] Magnesium Sulfate-D5w Pmx 200 1 gm In Dextrose/Water 1 100ml.bag @ 100 mls/hr IVPB Q1H JONES Rx#: [id number] Oral 1200 Output: Urine 2670 2400 750 Other: Voiding Method Indwelling Catheter Indwelling Catheter - Labs CBC & Chem 7: 12/22/22 05:47 12/22/22 05:47 Labs: Abnormal Lab Results - Last 24 Hours (Table) 12/22/22 12/22/22 12/22/22 Range/Units 05:47 05:47 11:05 RBC 3.90 L (4.10-5.20) X 10*6/uL Hgb 11.4 L (12.0-15.0) d/dL Hct 34.7 L (37.2-46.3) % BUN 8.8 L (9.0-27.0) mg/dL BUN/Creatinine Ratio 9.78 L (12.00-20.00) Ratio Glucose 281 H (70-110) mg/dL POC Glucose (mg/dL) 172 H (70-110) mg/dL Calcium 8.2 L (8.7-10.3) mg/dL Magnesium 1.4 L (1.5-2.4) mg/dL C-Reactive Protein 0.90 H (0.00-0.80) mg/dL 12/22/22 12/22/22 12/22/22 Range/Units 11:56 17:12 20:02 RBC (4.10-5.20) X 10*6/uL Hgb (12.0-15.0) d/dL Hct (37.2-46.3) % BUN (9.0-27.0) mg/dL BUN/Creatinine Ratio (12.00-20.00) Ratio Glucose (70-110) mg/dL POC Glucose (mg/dL) 155 H 365 H 293 H (70-110) mg/dL Calcium (8.7-10.3) mg/dL Magnesium (1.5-2.4) mg/dL C-Reactive Protein (0.00-0.80) mg/dL 12/23/22 12/23/22 Range/Units 05:52 07:24 RBC (4.10-5.20) X 10*6/uL Hgb (12.0-15.0) d/dL Hct (37.2-46.3) % BUN (9.0-27.0) mg/dL BUN/Creatinine Ratio (12.00-20.00) Ratio Glucose (70-110) mg/dL POC Glucose (mg/dL) 245 H 225 H (70-110) mg/dL Calcium (8.7-10.3) mg/dL Magnesium (1.5-2.4) mg/dL C-Reactive Protein (0.00-0.80) mg/dL Microbiology - Last 24 Hours (Table) 12/20/22 22:30 Stool Culture - Preliminary Stool 12/18/22 15:45 Blood Culture - Preliminary Blood
[2022-12-23 12:14] VITALS: BMI 29.5
[2022-12-23 13:14] LABS: Glucose,Whole Blood 249 mg/dL (70-110)
--- NOTE | 2022-12-23 14:41 | P.PN ---
Subjective Progress Note Date: 12/23/22 * 57-year-old patient with past medical history significant for DVT, hypothyroidism, history of pulmonary embolism, history of seizure disorder, neurogenic bladder with bladder stimulator implant in place, history of depression, seasonal affective disorder and bipolar disorder presented to the emergency department with complains of recurrent nausea vomiting. Patient was recently admitted discharge on 12/07/22 treated for urinary tract infection discharge on oral antibiotic to complete one week antibiotic course. Patient was discharged to medicine [place] and presents with intractable nausea vomiting. Workup initiated in ER included lipase levels which were within normal limits, liver profile obtained which were normal HEENT AST and bilirubin levels. Patient was noted to have severe electrolyte abnormalities including potassium of 2.9 and No 1.06. Hepatology showed WBC within normal limits myeloma 13.7 platelet count of 149 * CT abdomen and pelvis obtained in ER negative for acute intra-abdominal process or obstruction. * Patient was noted to have elevated lactate on admission secondary to dehydration however significant improvement was noted after hydration * Admitted to medical floor and resuscitated with fluid along with electrolyte replacement * 12/20/22: Patient seen and evaluated bedside patient had episode of nausea and one episode of vomiting after breakfast. Continue to monitor electrolytes, continue IV hydration. Patient requesting discharge. Patient counseled regarding fluid resuscitation and electrolyte correction. Denies of chest pain shortness of breath diarrhea * 12/21/22: Patient seen and evaluated bedside patient is alert to person and situation. WBC within normal limits. Serum chemistry shows sodium of 146 potassium 4.2 BUN and creatinine within normal limits, , follow-up CBC basic metabolic panel ordered. Continue patient on IV antibiotic * 12/22/22: Patient seen and evaluated bedside, patient is alert to person and situation. Patient scheduled for EGD today, serum chemistry reviewed potassium within normal limits however magnesium continue to remain low 1.4. Potassium and magnesium to be followed up. Stool cultures as well as stool studies ordered pending. Based on EGD results we'll determine next steps. Dye to bleed was as tolerated. For patient to be discharged she needs to tolerate diet. Patient guardian Nara wants to be updated regarding care plan. If EGD negative patient will benefit from outpatient GI follow-up for colonoscopy. Barrier to discharge his recurrent nausea and vomiting. At this point patient is nothing by mouth for EGD 12/23. Patient seen and examined. EGD done on 12/22 showed diffuse gastritis , biopsies taken. Currently tolerating regular diet. Denies any nausea or vomiting. Discussed patient planned with patient's guardian, patient guardian had called patient's performance makeup artist and recommended to discontinue all thyroid medications REVIEW OF SYSTEMS: CONSTITUTIONAL: No fever, no malaise,. CARDIOVASCULAR: No chest pain, no palpitations, no syncope. PULMONARY: No shortness of breath, no cough, GASTROINTESTINAL: No diarrhea, no nausea, no vomiting, no abdominal pain. NEUROLOGICAL: No headaches, no weakness, PHYSICAL EXAMINATION: GENERAL: The patient is alert and oriented x3, not in any acute distress. Well developed, well nourished. HEENT: Pupils are round and equally reacting to light. EOMI. CARDIOVASCULAR: S1 and S2 present. No murmurs, rubs, or gallops. PULMONARY: Chest is clear to auscultation, no wheezing or crackles. ABDOMEN: Soft, nontender, nondistended, normoactive bowel sounds. No palpable organomegaly. MUSCULOSKELETAL: No joint swelling or deformity. EXTREMITIES: No cyanosis, clubbing, or pedal edema. NEUROLOGICAL: Gross neurological examination did not reveal any focal deficits. SKIN: No rashes. Assessment and plan Acute gastritis with intractable nausea vomiting * Severe hypokalemia, hypomagnesemia * Acute kidney injury resolved * History of seizure disorder * History of seasonal affective disorder * History of pulmonary embolism * Recent admission for urinary tract infection * History of hyperthyroid * Lactic acidosis secondary to dehydration * Diabetes mellitus type 2 Monitor vital signs Monitor CBC Monitor CMP Continue IV Zofran continue antiemetics EGD done on 12/22 showed diffuse gastritis , biopsies taken Monitor blood sugar levels, continue sliding scale insulin In regards to hyperthyroid, guardian talked with performance makeup artist and they told her to stop all thyroid medications, follow-up outpatient with endocrinology, Labs and medication were reviewed.. Continue same treatment. Continue with symptomatic treatment. Resume home medication. Monitor labs and vitals. DVT and GI prophylaxis. Further recommendations as per clinical course of the patient Dictation was produced using [employer] dictation software. please excuse any grammatical, word or spelling errors. Objective - Vital Signs Vital signs: Vital Signs Temp 98.5 F 12/23/22 07:27 Pulse 72 12/23/22 07:27 Resp 20 12/23/22 07:27 BP 131/83 12/23/22 07:27 Pulse Ox 93 L 12/23/22 07:27 FiO2 Intake & Output 12/22/22 12/23/22 12/23/22 18:59 06:59 18:59 Intake Total 900 1200 Output Total 2670 2400 750 Balance -1770 -1200 -750 Intake: IV 100 Intake, IV Titration 800 Amount Dextrose 5%-0.45% NaCl 1, 600 000 ml @ 50 mls/hr IV . Q20H [facility] Rx#:[id number] Magnesium Sulfate-D5w Pmx 200 1 gm In Dextrose/Water 1 100ml.bag @ 100 mls/hr IVPB Q1H [facility] Rx#: [id number] Oral 1200 Output: Urine 2670 2400 750 Other: Voiding Method Indwelling Catheter Indwelling Catheter - Labs CBC & Chem 7: 12/22/22 05:47 12/22/22 05:47 Labs: Abnormal Lab Results - Last 24 Hours (Table) 12/22/22 12/22/22 12/22/22 Range/Units 05:47 05:47 11:05 RBC 3.90 L (4.10-5.20) X 10*6/uL Hgb 11.4 L (12.0-15.0) d/dL Hct 34.7 L (37.2-46.3) % BUN 8.8 L (9.0-27.0) mg/dL BUN/Creatinine Ratio 9.78 L (12.00-20.00) Ratio Glucose 281 H (70-110) mg/dL POC Glucose (mg/dL) 172 H (70-110) mg/dL Calcium 8.2 L (8.7-10.3) mg/dL Magnesium 1.4 L (1.5-2.4) mg/dL C-Reactive Protein 0.90 H (0.00-0.80) mg/dL 12/22/22 12/22/22 12/22/22 Range/Units 11:56 17:12 20:02 RBC (4.10-5.20) X 10*6/uL Hgb (12.0-15.0) d/dL Hct (37.2-46.3) % BUN (9.0-27.0) mg/dL BUN/Creatinine Ratio (12.00-20.00) Ratio Glucose (70-110) mg/dL POC Glucose (mg/dL) 155 H 365 H 293 H (70-110) mg/dL Calcium (8.7-10.3) mg/dL Magnesium (1.5-2.4) mg/dL C-Reactive Protein (0.00-0.80) mg/dL 12/23/22 12/23/22 Range/Units 05:52 07:24 RBC (4.10-5.20) X 10*6/uL Hgb (12.0-15.0) d/dL Hct (37.2-46.3) % BUN (9.0-27.0) mg/dL BUN/Creatinine Ratio (12.00-20.00) Ratio Glucose (70-110) mg/dL POC Glucose (mg/dL) 245 H 225 H (70-110) mg/dL Calcium (8.7-10.3) mg/dL Magnesium (1.5-2.4) mg/dL C-Reactive Protein (0.00-0.80) mg/dL Microbiology - Last 24 Hours (Table) 12/20/22 22:30 Stool Culture - Preliminary Stool 12/18/22 15:45 Blood Culture - Preliminary Blood
[2022-12-23] MEDS: MAGNESIUM SULFATE-D5W PMX 1 GM in DEXTROSE/WATER 1 100ML.BAG IVPB SCH ×4 (15:59→19:29)
[2022-12-23 17:55] LABS: Glucose,Whole Blood 237 mg/dL (70-110)
[2022-12-23 20:19] LABS: Glucose,Whole Blood 213 mg/dL (70-110)
[2022-12-23] MEDS: cloZAPine 100 MG TAB PO SCH (23:33)
[2022-12-23] MEDS: APIXABAN 5 MG TAB PO SCH (23:34)
[2022-12-24] MEDS: MAGNESIUM OXIDE 400 MG TAB PO SCH ×4 (04:30→20:16)
[2022-12-24 07:32] LABS: Glucose,Whole Blood 251 mg/dL (70-110)
[2022-12-24] MEDS ORDERED: ERGOCALCIFEROL 1,250 MCG (50,000 IU) CAPSULE PO SCH (09:00)
[2022-12-24] MEDS: ATORVASTATIN 40 MG TAB PO SCH (09:09)
[2022-12-24] MEDS: APIXABAN 5 MG TAB PO SCH ×2 (09:09→20:17)
[2022-12-24] MEDS: METOPROLOL TARTRATE 25 MG TAB PO SCH ×2 (09:09→20:16)
[2022-12-24] MEDS: PANTOPRAZOLE 40 MG/10 ML VIAL IVP SCH ×2 (09:10→20:17)
[2022-12-24] MEDS: TAMSULOSIN 0.4 MG CAP.ER.24H PO SCH (09:10)
[2022-12-24] MEDS: methIMAzole 5 MG TAB PO SCH (09:10)
[2022-12-24] MEDS: GLIMEPIRIDE 2 MG TAB PO SCH ×2 (09:10→20:16)
[2022-12-24] MEDS: NICOTINE 21MG/24HR PATCH TRANSDERM SCH (09:10)
[2022-12-24] MEDS: INSULIN ASPART (NovoLOG) 100 UNIT/ML VIAL SQ SCH ×4 (09:10→20:30)
[2022-12-24 10:10] LABS: HCT 38.3 % (37.2-46.3); HGB 12.7 d/dL (12.0-15.0); MCH 28.9 pg (27.0-32.0); MCHC 33.2 d/dL (32.0-37.0); MCV 87.2 FL (80.0-97.0); Mean Platelet Volume 11.5 FL (9.5-12.2); NRBC Per 100 WBC 0 X 10*3/uL (0.00-0.01); Platelet Count 166 X 10*3/uL (140-440); RBC 4.39 X 10*6/uL (4.10-5.20); RDW 13.9 % (11.5-14.5); WBC 5.31 X 10*3/uL (4.50-10.00)
[2022-12-24 10:13] LABS: ALT 17 U/L (8-44); AST 7 U/L (13-35); Albumin 3.8 d/dL (3.8-4.9); Alkaline Phosphatase 57 U/L (41-126); Blood Urea Nitrogen 17.7 mg/dL (9.0-27.0); Carbon Dioxide 27.8 mmol/L (21.6-31.8); Chloride 98 mmol/L (96-109); Glucose 263 mg/dL (70-110); Sodium 138 mmol/L (135-145); Total Bilirubin 0.2 mg/dL (0.3-1.2); Total Protein 5.8 d/dL (6.2-8.2)
[2022-12-24 11:27] LABS: African American GFR (CKD) 72 (>60 ml/min/1.73 sqM); Anion Gap 13 mmol/L; Blood Urea Nitrogen 21 mg/dL (7-17); Calcium 9.3 mg/dL (8.4-10.2); Carbon Dioxide 23 mmol/L (22-30); Chloride 96 mmol/L (98-107); Glucose 431 mg/dL (74-99); Magnesium 1.6 mg/dL (1.6-2.3); Non-African American GFR(CKD) 62 (>60 ml/min/1.73 sqM); Potassium 4.7 mmol/L (3.5-5.1); Sodium 132 mmol/L (137-145)
[2022-12-24] MEDS ORDERED: MAGNESIUM SULFATE-D5W PMX 1 GM in DEXTROSE/WATER 1 100ML.BAG IVPB SCH (12:30)
[2022-12-24 13:19] LABS: Glucose,Whole Blood 446 mg/dL (70-110)
[2022-12-24] MEDS: MAGNESIUM SULFATE-D5W PMX 1 GM in DEXTROSE/WATER 1 100ML.BAG IVPB SCH ×5 (13:36→17:32)
[2022-12-24] MEDS ORDERED: INSULIN ASPART (NovoLOG) 100 UNIT/ML VIAL SQ ONE (14:15)
--- NOTE | 2022-12-24 14:51 | P.PN ---
Subjective Progress Note Date: 12/24/22 * 57-year-old patient with past medical history significant for DVT, hypothyroidism, history of pulmonary embolism, history of seizure disorder, neurogenic bladder with bladder stimulator implant in place, history of depression, seasonal affective disorder and bipolar disorder presented to the emergency department with complains of recurrent nausea vomiting. Patient was recently admitted discharge on 12/07/22 treated for urinary tract infection discharge on oral antibiotic to complete one week antibiotic course. Patient was discharged to medicine [place] and presents with intractable nausea vomiting. Workup initiated in ER included lipase levels which were within normal limits, liver profile obtained which were normal HEENT AST and bilirubin levels. Patient was noted to have severe electrolyte abnormalities including potassium of 2.9 and No 1.06. Hepatology showed WBC within normal limits myeloma 13.7 platelet count of 149 * CT abdomen and pelvis obtained in ER negative for acute intra-abdominal process or obstruction. * Patient was noted to have elevated lactate on admission secondary to dehydration however significant improvement was noted after hydration * Admitted to medical floor and resuscitated with fluid along with electrolyte replacement * 12/20/22: Patient seen and evaluated bedside patient had episode of nausea and one episode of vomiting after breakfast. Continue to monitor electrolytes, continue IV hydration. Patient requesting discharge. Patient counseled regarding fluid resuscitation and electrolyte correction. Denies of chest pain shortness of breath diarrhea * 12/21/22: Patient seen and evaluated bedside patient is alert to person and situation. WBC within normal limits. Serum chemistry shows sodium of 146 potassium 4.2 BUN and creatinine within normal limits, , follow-up CBC basic metabolic panel ordered. Continue patient on IV antibiotic * 12/22/22: Patient seen and evaluated bedside, patient is alert to person and situation. Patient scheduled for EGD today, serum chemistry reviewed potassium within normal limits however magnesium continue to remain low 1.4. Potassium and magnesium to be followed up. Stool cultures as well as stool studies ordered pending. Based on EGD results we'll determine next steps. Dye to bleed was as tolerated. For patient to be discharged she needs to tolerate diet. Patient guardian Nara wants to be updated regarding care plan. If EGD negative patient will benefit from outpatient GI follow-up for colonoscopy. Barrier to discharge his recurrent nausea and vomiting. At this point patient is nothing by mouth for EGD 12/23. Patient seen and examined. EGD done on 12/22 showed diffuse gastritis , biopsies taken. Currently tolerating regular diet. Denies any nausea or vomiting. Discussed patient planned with patient's guardian, patient guardian had called patient's ap processor and recommended to discontinue all thyroid medications 12/24. Patient seen and examined. Magnesium level improved to 1.6, will give 4 g of magnesium sulfate. No other acute issues overnight. Denies any further episodes of nausea, vomiting or Diarrhea REVIEW OF SYSTEMS: CONSTITUTIONAL: No fever, no malaise,. CARDIOVASCULAR: No chest pain, no palpitations, no syncope. PULMONARY: No shortness of breath, no cough, GASTROINTESTINAL: As mentioned above NEUROLOGICAL: No headaches, no weakness, PHYSICAL EXAMINATION: GENERAL: The patient is alert and oriented x3, not in any acute distress. Well developed, well nourished. HEENT: Pupils are round and equally reacting to light. EOMI. CARDIOVASCULAR: S1 and S2 present. No murmurs, rubs, or gallops. PULMONARY: Chest is clear to auscultation, no wheezing or crackles. ABDOMEN: Soft, nontender, nondistended, normoactive bowel sounds. No palpable organomegaly. MUSCULOSKELETAL: No joint swelling or deformity. EXTREMITIES: No cyanosis, clubbing, or pedal edema. NEUROLOGICAL: Gross neurological examination did not reveal any focal deficits. SKIN: No rashes. Assessment and plan Acute gastritis with intractable nausea vomiting * Severe hypokalemia, hypomagnesemia * Acute kidney injury resolved * History of seizure disorder * History of seasonal affective disorder * History of pulmonary embolism * Recent admission for urinary tract infection * History of hyperthyroid * Lactic acidosis secondary to dehydration * Diabetes mellitus type 2 Monitor vital signs Monitor CBC Monitor CMP Continue IV Zofran continue antiemetics EGD done on 12/22 showed diffuse gastritis , biopsies taken Monitor blood sugar levels, continue sliding scale insulin, Regarding hypomagnesemia, will give 4 g of magnesium sulfate In regards to hyperthyroid, guardian talked with ap processor and they told her to stop all thyroid medications, follow-up outpatient with endocrinology, Labs and medication were reviewed.. Continue same treatment. Continue with symptomatic treatment. Resume home medication. Monitor labs and vitals. DVT and GI prophylaxis. Further recommendations as per clinical course of the patient Dictation was produced using [employer] dictation software. please excuse any grammatical, word or spelling errors. Objective - Vital Signs Vital signs: Vital Signs Temp 98.2 F 12/24/22 07:14 Pulse 82 12/24/22 07:14 Resp 18 12/24/22 07:14 BP 112/67 12/24/22 07:14 Pulse Ox 92 L 12/24/22 07:14 FiO2 Intake & Output 12/23/22 12/24/22 12/24/22 18:59 06:59 18:59 Intake Total 200 Output Total 3150 5050 Balance -2950 -5050 Weight 71 kg Intake: Intake, IV Titration 200 Amount Magnesium Sulfate-D5w Pmx 200 1 gm In Dextrose/Water 1 100ml.bag @ 100 mls/hr IVPB Q1H [facility] Rx#: [id number] Output: Urine 3150 5050 Other: Voiding Method Indwelling Catheter Indwelling Catheter # Bowel Movements 0 - Labs CBC & Chem 7: 12/24/22 06:24 12/24/22 10:44 Labs: Abnormal Lab Results - Last 24 Hours (Table) 12/23/22 12/23/22 12/23/22 Range/Units 13:10 14:32 17:54 POC Glucose (mg/dL) 249 H 237 H (70-110) mg/dL Magnesium 1.3 L (1.6-2.3) mg/dL 12/23/22 12/24/22 Range/Units 20:16 07:19 POC Glucose (mg/dL) 213 H 251 H (70-110) mg/dL Magnesium (1.6-2.3) mg/dL Microbiology - Last 24 Hours (Table) 12/20/22 22:30 Stool Culture - Final Stool 12/18/22 15:53 Blood Culture - Final Blood
[2022-12-24] MEDS: LINAGLIPTIN 5 MG TABLET PO SCH (15:18)
[2022-12-24] MEDS: IPRATROPIUM-ALBUTEROL 3 ML NEB INHALATION PRN (15:21)
[2022-12-24 17:09] LABS: Glucose,Whole Blood 395 mg/dL (70-110)
[2022-12-24] MEDS: cloZAPine 100 MG TAB PO SCH (20:16)
[2022-12-24 20:24] LABS: Glucose,Whole Blood 274 mg/dL (70-110)
[2022-12-25] MEDS: MAGNESIUM OXIDE 400 MG TAB PO SCH ×3 (03:44→15:02)
[2022-12-25 07:41] LABS: Glucose,Whole Blood 237 mg/dL (70-110)
[2022-12-25 08:02] VITALS: RESP 18
[2022-12-25] MEDS: TAMSULOSIN 0.4 MG CAP.ER.24H PO SCH (08:28)
[2022-12-25] MEDS: METOPROLOL TARTRATE 25 MG TAB PO SCH (08:28)
[2022-12-25] MEDS: INSULIN ASPART (NovoLOG) 100 UNIT/ML VIAL SQ SCH ×2 (08:28→12:29)
[2022-12-25] MEDS: ATORVASTATIN 40 MG TAB PO SCH (08:28)
[2022-12-25] MEDS: NICOTINE 21MG/24HR PATCH TRANSDERM SCH (08:28)
[2022-12-25] MEDS: APIXABAN 5 MG TAB PO SCH (08:28)
[2022-12-25] MEDS: LINAGLIPTIN 5 MG TABLET PO SCH (08:29)
[2022-12-25] MEDS: GLIMEPIRIDE 2 MG TAB PO SCH (08:29)
[2022-12-25] MEDS: PANTOPRAZOLE 40 MG/10 ML VIAL IVP SCH (08:29)
[2022-12-25] MEDS: IPRATROPIUM-ALBUTEROL 3 ML NEB INHALATION PRN (11:14)
[2022-12-25 12:01] LABS: Glucose,Whole Blood 393 mg/dL (70-110)
[2022-12-25 12:29] VITALS: BP 116/74; PULSE 105; TEMP 97.9
--- NOTE | 2022-12-25 13:00 | P.DS ---
Providers Date of admission: 12/18/22 18:51 Expected date of discharge: 12/25/22 Attending physician: Chepe Crouch MD Primary care physician: Gamal Stuart [facility] Course: Discharge diagnoses; Acute gastritis with intractable nausea vomiting * Severe hypokalemia, hypomagnesemia * Acute kidney injury resolved * History of seizure disorder * History of seasonal affective disorder * History of pulmonary embolism * Recent admission for urinary tract infection * History of hyperthyroid * Lactic acidosis secondary to dehydration * Diabetes mellitus type 2 Hospital course; 57-year-old patient with past medical history significant for DVT, hypothyroidism, history of pulmonary embolism, history of seizure disorder, neurogenic bladder with bladder stimulator implant in place, history of depression, seasonal affective disorder and bipolar disorder presented to the emergency department with complains of recurrent nausea vomiting. Patient was recently admitted discharge on 12/07/22 treated for urinary tract infection discharge on oral antibiotic to complete one week antibiotic course. Patient was discharged to medicine [place] and presents with intractable nausea vomiting. Workup initiated in ER included lipase levels which were within normal limits, liver profile obtained which were normal HEENT AST and bilirubin levels. Patient was noted to have severe electrolyte abnormalities including potassium of 2.9 and No 1.06. Hepatology showed WBC within normal limits myeloma 13.7 platelet count of 149 * CT abdomen and pelvis obtained in ER negative for acute intra-abdominal process or obstruction. * Patient was noted to have elevated lactate on admission secondary to dehydration however significant improvement was noted after hydration * Admitted to medical floor and resuscitated with fluid along with electrolyte replacement * 12/20/22: Patient seen and evaluated bedside patient had episode of nausea and one episode of vomiting after breakfast. Continue to monitor electrolytes, continue IV hydration. Patient requesting discharge. Patient counseled regarding fluid resuscitation and electrolyte correction. Denies of chest pain shortness of breath diarrhea * 12/21/22: Patient seen and evaluated bedside patient is alert to person and situation. WBC within normal limits. Serum chemistry shows sodium of 146 potassium 4.2 BUN and creatinine within normal limits, , follow-up CBC basic metabolic panel ordered. Continue patient on IV antibiotic * 12/22/22: Patient seen and evaluated bedside, patient is alert to person and situation. Patient scheduled for EGD today, serum chemistry reviewed potassium within normal limits however magnesium continue to remain low 1.4. Potassium and magnesium to be followed up. Stool cultures as well as stool studies ordered pending. Based on EGD results we'll determine next steps. Dye to bleed was as tolerated. For patient to be discharged she needs to tolerate diet. Patient guardian Nara wants to be updated regarding care plan. If EGD negative patient will benefit from outpatient GI follow-up for colonoscopy. Barrier to discharge his recurrent nausea and vomiting. At this point patient is nothing by mouth for EGD 12/23. Patient seen and examined. EGD done on 12/22 showed diffuse gastritis , biopsies taken. Currently tolerating regular diet. Denies any nausea or vomiting. Discussed patient planned with patient's guardian, patient guardian had called patient's social staff worker and recommended to discontinue all thyroid medications 12/24. Patient seen and examined. Magnesium level improved to 1.6, will give 4 g of magnesium sulfate. No other acute issues overnight. Denies any further episodes of nausea, vomiting or Diarrhea 12/25. Patient seen and examined. Magnesium level improved to 1.9. Being discharged in stable condition PHYSICAL EXAMINATION: GENERAL: The patient is alert and oriented x3, not in any acute distress. Well developed, well nourished. HEENT: Pupils are round and equally reacting to light. EOMI. No scleral icterus. No conjunctival pallor. Normocephalic, atraumatic. No pharyngeal erythema. No thyromegaly. CARDIOVASCULAR: S1 and S2 present. No murmurs, rubs, or gallops. PULMONARY: Chest is clear to auscultation, no wheezing or crackles. ABDOMEN: Soft, nontender, nondistended, normoactive bowel sounds. No palpable organomegaly. MUSCULOSKELETAL: No joint swelling or deformity. EXTREMITIES: No cyanosis, clubbing, or pedal edema. NEUROLOGICAL: Gross neurological examination did not reveal any focal deficits. SKIN: No rashes. Dictation was produced using [employer] dictation software. please excuse any grammatical, word or spelling errors. Patient Condition at Discharge: Fair Plan - Discharge Summary Discharge Rx Participant: No New Discharge Prescriptions: New Pantoprazole [Protonix] 40 mg PO BID 30 Days #60 tab Continue fluPHENAZine decanoate [Prolixin Decanoate] 50 mg IM Q14D Tamsulosin [Flomax] 0.4 mg PO DAILY Omeprazole 20 mg PO BID Apixaban [Eliquis] 5 mg PO BID Atorvastatin [Lipitor] 40 mg PO HS sitaGLIPtin [Januvia] 100 mg PO DAILY Ergocalciferol (Vitamin D2) [Drisdol (50,000 Iu)] 1,250 mcg PO SA Metoprolol Tartrate [Lopressor] 25 mg PO BID Acetaminophen Tab [Tylenol] 650 mg PO Q6HR PRN tab PRN Reason: Mild Pain Or Fever > 100.5 Ipratropium-Albuterol Nebulize [Duoneb 0.5 mg-3 mg/3 ml Soln] 3 ml INHALATION RT-Q6H PRN PRN Reason: Shortness Of Breath metFORMIN HCL [Glucophage] 500 mg PO BID Insulin Lispro [humaLOG Kwikpen] See Protocol SQ ACHS fluvoxaMINE MALEATE [Luvox] 100 mg PO HS Nicotine 21Mg/24Hr Patch [Habitrol] 1 patch TRANSDERM DAILY Albuterol Inhaler [Ventolin Hfa Inhaler] 2 puff INHALATION RT-Q6H PRN PRN Reason: Shortness Of Breath Tiotropium Br/Olodaterol HCl [Stiolto Respimat Inhal [place]] 1 puff INHALATION RT-DAILY PRN PRN Reason: Shortness Of Breath traZODone HCL [Desyrel] 50 mg PO HS PRN tab PRN Reason: Insomnia LORazepam [Ativan] 0.5 mg PO DAILY PRN #2 tab PRN Reason: Anxiety Cholecalciferol [Vitamin D3 (25 Mcg = 1000 Iu)] 25 mcg PO DAILY cloZAPine [Clozaril] 200 mg PO HS Glimepiride [Amaryl] 4 mg PO BID Ondansetron [Zofran] 4 mg PO Q6H PRN PRN Reason: Nausea Magnesium Oxide [Mag-Ox] 400 mg PO Q6H Metoclopramide [Reglan] 5 mg PO Q8H PRN PRN Reason: Nausea Discontinued methIMAzole [Tapazole] 5 mg PO DAILY Discharge Medication List fluPHENAZine decanoate [Prolixin Decanoate] 50 mg IM Q14D 01/21/16 [History] Tamsulosin [Flomax] 0.4 mg PO DAILY 03/13/17 [History] Omeprazole 20 mg PO BID 07/22/20 [History] Apixaban [Eliquis] 5 mg PO BID 10/24/20 [History] fluvoxaMINE MALEATE [Luvox] 100 mg PO HS 10/24/20 [History] Atorvastatin [Lipitor] 40 mg PO HS 10/19/21 [History] Nicotine 21Mg/24Hr Patch [Habitrol] 1 patch TRANSDERM DAILY 03/19/22 [History] sitaGLIPtin [Januvia] 100 mg PO DAILY 03/19/22 [History] Albuterol Inhaler [Ventolin Hfa Inhaler] 2 puff INHALATION RT-Q6H PRN 11/02/22 [History] Ergocalciferol (Vitamin D2) [Drisdol (50,000 Iu)] 1,250 mcg PO SA 11/02/22 [History] Metoprolol Tartrate [Lopressor] 25 mg PO BID 11/02/22 [History] Tiotropium Br/Olodaterol HCl [Stiolto Respimat Inhal [place]] 1 puff INHALATION RT-DAILY PRN 11/02/22 [History] Acetaminophen Tab [Tylenol] 650 mg PO Q6HR PRN tab 12/07/22 [Rx] LORazepam [Ativan] 0.5 mg PO DAILY PRN #2 tab 12/07/22 [Rx] traZODone HCL [Desyrel] 50 mg PO HS PRN tab 12/07/22 [Rx] Cholecalciferol [Vitamin D3 (25 Mcg = 1000 Iu)] 25 mcg PO DAILY 12/18/22 [History] Glimepiride [Amaryl] 4 mg PO BID 12/18/22 [History] Insulin Lispro [humaLOG Kwikpen] See Protocol SQ ACHS 12/18/22 [History] Ipratropium-Albuterol Nebulize [Duoneb 0.5 mg-3 mg/3 ml Soln] 3 ml INHALATION RT-Q6H PRN 12/18/22 [History] Magnesium Oxide [Mag-Ox] 400 mg PO Q6H 12/18/22 [History] Metoclopramide [Reglan] 5 mg PO Q8H PRN 12/18/22 [History] Ondansetron [Zofran] 4 mg PO Q6H PRN 12/18/22 [History] cloZAPine [Clozaril] 200 mg PO HS 12/18/22 [History] metFORMIN HCL [Glucophage] 500 mg PO BID 12/18/22 [History] Pantoprazole [Protonix] 40 mg PO BID 30 Days #60 tab 12/25/22 [Rx] Follow up Appointment(s)/Referral(s): Gamal Stuart DO [Primary Care Provider] - 1-2 days Discharge Disposition: HOME SELF-CARE
--- NOTE | 2022-12-28 12:08 | CDI ---
Documentation Clarification Form Date: 12/28/2022 11:26:59 AM From: Luanne Mcnally RN, CCDS Email: [email or web address] Admit Date: 12/18/2022 06:51:00 PM Patient Name: Veronique Dukes Visit Number: [id number] Discharge Date: 12/25/2022 04:50:00 PM ATTENTION: The Clinical Documentation Specialists (CDI) and [facility] Coding Staff appreciate your assistance in clarifying documentation. Please respond to the clarification below the line at the bottom and electronically sign. The CDI & [facility] Coding staff will review the response and follow-up if needed. Please note: Queries are made part of the Legal Health Record. If you have any questions, please contact the author of this message via ITS. Dr. Chepe Crouch Your patient had acute gastritis, elevated WBC's and elevated HR. Based on this information and the findings below, is there an additional diagnosis that is clinically appropriate for this patient? History/Risk Factors: DM, HTN, psychosis, recent UTI and hyperthyroidism. Presents with nausea, vomiting and abdominal cramping. Admitted with acute gastritis, lactic acidosis and acute kidney injury. Clinical Indicators: 12/18 lactic acid: 2.9-1.6 12/19 WBC: 13.7 12/18-12/24 Cr: 1.06-0.89-0.9-1.00 12/18 HR: 753-174-83-105-114 H&P: "Patient was noted to have elevated lactate on admission secondary to dehydration however significant improvement was noted after hydration. Acute gastritis with intractable nausea vomiting. Severe hypokalemia, hypomagnesemia. Acute kidney injury. Lactic acidosis secondary to dehydration." 12/22 IM: "Acute kidney injury resolved." Treatment: 0.9 NS 500mL bolus 12/18 then 100 mL/hr 12/18-12/21; D5.45 NS @50mL/hr 12/21-12/23; Reglan 10mg IV x1 on 12/19; Zofran 4mg IV x1 on 12/20; Protonix 40mg IV BID 12/20-12/25 Is there an additional diagnosis that is clinically appropriate for this patient? [x ] SIRS, due to acute gastritis with IVAN and lactic acidosis [ ] Other, please specify [ ] Unable to determine SIRS Criteria: 2 or more of the following may indicate SIRS -Temperature < 96.8F(36C) or > 101.0F (38.3C) -Heart Rate > 90 bpm -Respiratory Rate > 20 breaths/min or PaCO2 < 32 mmHg -White Blood Cell Count > 12,000 or < 4,000 cells/mm3 or > 10% bands MTDD
== END 2022-12-25 16:50 | disposition home or self-care (01) | DRG 391 ==
LOC: EC 14:40 → EEVIPCON 14:40 → 3SCARD 18:51 → 4SSUR 12-19 13:59 → 5NMEDONC 12-19 14:09
PROVIDERS: ADMIT Internal Medicine; ATTEND Internal Medicine
PROC: 0DB78ZX Excision of Stomach, Pylorus, Via Natural or Artificial Opening Endoscopic, Diagnostic (ICD-10-PCS; principal; 2022-12-22 07:50)
PROC: 0DB68ZX Excision of Stomach, Via Natural or Artificial Opening Endoscopic, Diagnostic (ICD-10-PCS; principal; 2022-12-22 07:50)
DX: K29.00 Acute gastritis without bleeding (principal); R65.11 Systemic inflammatory response syndrome (SIRS) of non-infectious origin with acute organ dysfunction; N17.9 Acute kidney failure, unspecified; E87.20 Acidosis, unspecified; E03.9 Hypothyroidism, unspecified; E83.42 Hypomagnesemia; E86.0 Dehydration; M19.90 Unspecified osteoarthritis, unspecified site; R13.10 Dysphagia, unspecified; E11.9 Type 2 diabetes mellitus without complications; J44.9 Chronic obstructive pulmonary disease, unspecified; E87.6 Hypokalemia; F17.210 Nicotine dependence, cigarettes, uncomplicated; F25.9 Schizoaffective disorder, unspecified; G40.909 Epilepsy, unspecified, not intractable, without status epilepticus; I10 Essential (primary) hypertension; N31.9 Neuromuscular dysfunction of bladder, unspecified; Z87.440 Personal history of urinary (tract) infections; Z79.01 Long term (current) use of anticoagulants; Z79.4 Long term (current) use of insulin; Z79.84 Long term (current) use of oral hypoglycemic drugs; Z79.899 Other long term (current) drug therapy; Z86.711 Personal history of pulmonary embolism; Z86.718 Personal history of other venous thrombosis and embolism; Z86.010 Personal history of colon polyps
CPT/HCPCS: 36415; 43239; 51702; 74177; 80048; 80053; 81001; 82009; 83036; 83605; 83690; 83735; 83993; 84100; 84132; 84484; 85025; 85027; 85610; 85730; 86140; 87040; 87045; 87046; 87636; 88305; 93005; 94640; 94760; 96361; 96365; 96366; 96367; 96368; 96375; 99285

== ENCOUNTER 2022-12-29 21:42 | Emergency (ER) | payer MEDICARE, OTHER ==
[2022-12-29 22:08] VITALS: BP 104/62; PULSE 109; RESP 20; TEMP 98.2
--- NOTE | 2022-12-29 22:12 | ED ---
General Adult HPI - General Chief complaint: Urogenital Stated complaint: Recheck Time Seen by Provider: 12/29/22 22:03 Source: patient Mode of arrival: ambulatory Limitations: no limitations - History of Present Illness Initial comments: Dictation was produced using Identify dictation software. please excuse any grammatical, word or spelling errors. Chief Complaint: 57-year-old female presents to the ER with Taylor bag reservoir leak History of Present Illness: 57-year-old female she is here in emergency department requesting a new Taylor leg bag. States that her leg bags currently leaking. Patient has no other complaints. States that her Taylor catheter is been in place for the last month. Patient reports a history of atonic bladder and she has a stimulator. The ROS documented in this emergency department record has been reviewed and confirmed by me. Those systems with pertinent positive or negative responses have been documented in the HPI. All other systems are other negative and/or noncontributory. - Related Data Home Medications Medication Instructions Recorded Confirmed fluPHENAZine decanoate [Prolixin 50 mg IM Q14D 01/21/16 12/18/22 Decanoate] Tamsulosin [Flomax] 0.4 mg PO DAILY 03/13/17 12/18/22 Omeprazole 20 mg PO BID 07/22/20 12/18/22 Apixaban [Eliquis] 5 mg PO BID 10/24/20 12/18/22 fluvoxaMINE MALEATE [Luvox] 100 mg PO HS 10/24/20 12/18/22 Atorvastatin [Lipitor] 40 mg PO HS 10/19/21 12/18/22 Nicotine 21Mg/24Hr Patch [Habitrol] 1 patch TRANSDERM DAILY 03/19/22 12/18/22 sitaGLIPtin [Januvia] 100 mg PO DAILY 03/19/22 12/18/22 Albuterol Inhaler [Ventolin Hfa 2 puff INHALATION RT-Q6H PRN 11/02/22 12/18/22 Inhaler] Ergocalciferol (Vitamin D2) 1,250 mcg PO SA 11/02/22 12/18/22 [Drisdol (50,000 Iu)] Metoprolol Tartrate [Lopressor] 25 mg PO BID 11/02/22 12/18/22 Tiotropium Br/Olodaterol HCl 1 puff INHALATION RT-DAILY PRN 11/02/22 12/18/22 [Stiolto Respimat Inhal [place]] Cholecalciferol [Vitamin D3 (25 25 mcg PO DAILY 12/18/22 12/18/22 Mcg = 1000 Iu)] Glimepiride [Amaryl] 4 mg PO BID 12/18/22 12/18/22 Insulin Lispro [humaLOG Kwikpen] See Protocol SQ ACHS 12/18/22 12/18/22 Ipratropium-Albuterol Nebulize 3 ml INHALATION RT-Q6H PRN 12/18/22 12/18/22 [Duoneb 0.5 mg-3 mg/3 ml Soln] Metoclopramide [Reglan] 5 mg PO Q8H PRN 12/18/22 12/18/22 Ondansetron [Zofran] 4 mg PO Q6H PRN 12/18/22 12/18/22 cloZAPine [Clozaril] 200 mg PO HS 12/18/22 12/18/22 metFORMIN HCL [Glucophage] 500 mg PO BID 12/18/22 12/18/22 Previous Rx's Medication Instructions Recorded Acetaminophen Tab [Tylenol] 650 mg PO Q6HR PRN tab 12/07/22 LORazepam [Ativan] 0.5 mg PO DAILY PRN #2 tab 12/07/22 traZODone HCL [Desyrel] 50 mg PO HS PRN tab 12/07/22 Magnesium Oxide [Mag-Ox] 400 mg PO Q6H 28 Days #28 tab 12/25/22 Pantoprazole [Protonix] 40 mg PO BID 30 Days #60 tab 12/25/22 Allergies Allergy/AdvReac Type Severity Reaction Status Date / Time haloperidol [From Haldol] AdvReac Muscles Verified 12/29/22 21:57 freeze up in arms and hands haloperidol lactate AdvReac Muscles Verified 12/29/22 21:57 [From Haldol] freeze up in arms and hands Review of Systems ROS Statement: Those systems with pertinent positive or pertinent negative responses have been documented in the HPI. ROS Other: All systems not noted in ROS Statement are negative. Past Medical History Past Medical History: COPD, Diabetes Mellitus, GERD/Reflux, Hypertension, Osteoarthritis (OA), Pulmonary Embolus (PE), Seizure Disorder Additional Past Medical History / Comment(s): Hx of colon polyps, neuorgenic bladder, anemia, self caths at home, thyroid nodule, UTI with hospital admission september 2021- klebsiella treated with ceftin History of Any Multi-Drug Resistant Organisms: ESBL Date of last positivie culture/infection: 12/01/22 MDRO Source:: Urine Past Surgical History: Back Surgery, Breast Surgery, Ear Surgery Additional Past Surgical History / Comment(s): hunter breast reduction, breast biopsy, bladder stimulator implant, skin grafts to ear Past Anesthesia/Blood Transfusion Reactions: No Reported Reaction Past Psychological History: Bipolar, Depression, Schizoaffective Disorder Smoking Status: Current some day smoker Past Alcohol Use History: None Reported Past Drug Use History: None Reported - Past Family History Father Family Medical History: Cancer Additional Family Medical History / Comment(s): lung Sister(s) Family Medical History: Cancer Additional Family Medical History / Comment(s): ovarian General Exam - General Exam Comments Initial Comments: PHYSICAL EXAM: General Impression: Alert and oriented x3, not in acute distress HEENT: Normocephalic atraumatic, extra-ocular movements intact, pupils equal and reactive to light bilaterally, mucous membranes moist. Cardiovascular: Heart regular rate and rhythm Chest: Able to complete full sentences, no retractions, no tachypnea Musculoskeletal: Pulses present and equal in all extremities, no peripheral edema Motor: no focal deficits noted Neurological: CN II-XII grossly intact, no focal motor or sensory deficits noted Skin: Intact with no visualized rashes Psych: Normal affect and mood Limitations: no limitations Course Vital Signs 12/29/22 21:55 Temperature 98.2 F Pulse Rate 109 H Respiratory 20 Rate Blood Pressure 104/62 O2 Sat by Pulse 97 Oximetry Medical Decision Making - Medical Decision Making Was pt. sent in by a medical professional or institution (, PA, GIMP BUTTONHOLE MACHINE OPERATOR, urgent care, hospital, or alf...) When possible be specific @ -No Did you speak to anyone other than the patient for history (EMS, parent, family, police, friend...)? What history was obtained from this source @ -No Did you review nursing and triage notes (agree or disagree)? Why? @ -I reviewed and agree with nursing and triage notes Were old charts reviewed (outside hosp., previous admission, EMS record, old EKG, old radiological studies, urgent care reports/EKG's, alf records)? Report findings @ -No old charts were reviewed Differential Diagnosis (chest pain, altered mental status, abdominal pain women, abdominal pain men, vaginal bleeding, musculoskeletal, weakness, fever, dyspnea, syncope, headache, dizziness, GI bleed, back pain, seizure, CVA, palpatations, mental health)? @ -not applicable EKG interpreted by me (3pts min.). @ -None done X-rays interpreted by me (1pt min.). @ -None done CT interpreted by me (1pt min.). @ -None done U/S interpreted by me (1pt. min.). @ -None done What testing was considered but not performed or refused? (CT, X-rays, U/S, labs)? Why? @ -None What meds were considered but not given or refused? Why? @ -None Did you discuss the management of the patient with other professionals (professionals i.e. , PA, GIMP BUTTONHOLE MACHINE OPERATOR, lab, RT, psych nurse, social work coordinator, laminator preforms, teacher, credit or loans officer, wrapper caser)? Give summary @ -No Was smoking cessation discussed for >3mins.? @ -No Was critical care preformed (if so, how long)? @ -No Were there social determinants of health that impacted care today? How? (Homelessness, low income, unemployed, alcoholism, drug addiction, transportation, low edu. Level, literacy, decrease access to med. care, long-term, rehab)? @ -No Was there de-escalation of care discussed even if they declined (Discuss DNR or withdrawal of care, Hospice)? DNR status @ -No What co-morbidities impacted this encounter? (DM, HTN, Smoking, COPD, CAD, Cancer, CVA, ARF, Chemo, Hep., AIDS, mental health diagnosis, sleep apnea, morbid obesity)? @ -None Was patient admitted / discharged? Hospital course, mention meds given and route, prescriptions, significant lab abnormalities, going to OR and other pertinent info. @ -Year-old male presents with request for new Taylor bag because current one is leaking. Vital signs stable. Physical examination is benign. Patient has no physical complaints. Taylor bag provided. Patient discharged. Undiagnosed new problem with uncertain prognosis? @ -No Drug Therapy requiring intensive monitoring for toxicity (Heparin, Nitro, Insulin, Cardizem)? @ -No Were any procedures done? @ -No Diagnosis/symptom? Acute, or Chronic, or Acute on Chronic? Uncomplicated (without systemic symptoms) or Complicated (systemic symptoms)? @ -Taylor bag malfunction Side effects of treatment? @ -No Exacerbation, Progression, or Severe Exacerbation? @ -No Poses a threat to life or bodily function? How? (Chest pain, [place], [place], pneumonia, PE, COPD, DKA, ARF, appy, cholecystitis, CVA, Diverticulitis, Homicidal, Suicidal, threat to staff... and all critical care pts) @ -No Disposition Clinical Impression: Taylor catheter in place Disposition: HOME SELF-CARE Condition: Good Instructions (If sedation given, give patient instructions): Taylor Catheter Placement and Care (ED) Is patient prescribed a controlled substance at d/c from ED?: No Referrals: Gamal Stuart DO [Primary Care Provider] - 1-2 days Time of Disposition: 22:12
== END 2022-12-29 22:33 | disposition home or self-care (01) ==
LOC: EC 21:42
DX: T83.091A Other mechanical complication of indwelling urethral catheter, initial encounter (principal); E11.9 Type 2 diabetes mellitus without complications; I10 Essential (primary) hypertension; J44.9 Chronic obstructive pulmonary disease, unspecified; K21.9 Gastro-esophageal reflux disease without esophagitis; M19.90 Unspecified osteoarthritis, unspecified site; F17.200 Nicotine dependence, unspecified, uncomplicated; Z79.01 Long term (current) use of anticoagulants; Z79.84 Long term (current) use of oral hypoglycemic drugs; Z79.4 Long term (current) use of insulin; Z79.899 Other long term (current) drug therapy; Z88.8 Allergy status to other drugs, medicaments and biological substances
CPT/HCPCS: 51702; 99283

== ENCOUNTER 2023-01-22 10:29 | Inpatient (IN) | payer MEDICARE, OTHER ==
--- NOTE | 2023-01-22 11:09 | ED ---
Recheck HPI - General Chief Complaint: Recheck/Abnormal Lab/Rx Stated Complaint: Catheter issue Time Seen by Provider: 01/22/23 11:02 Source: patient, RN notes reviewed Mode of arrival: ambulatory Limitations: no limitations - History of Present Illness Initial Comments: Patient is a 57-year-old female presented ER with chief complaint of catheter issues. Patient states she needs any catheter bag as hers is now leaking. Patient denies any fevers, chills, chest pain, shortness of breath. - Related Data Home Medications Medication Instructions Recorded Confirmed fluPHENAZine decanoate [Prolixin 50 mg IM Q14D 01/21/16 12/18/22 Decanoate] Tamsulosin [Flomax] 0.4 mg PO DAILY 03/13/17 12/18/22 Omeprazole 20 mg PO BID 07/22/20 12/18/22 Apixaban [Eliquis] 5 mg PO BID 10/24/20 12/18/22 fluvoxaMINE MALEATE [Luvox] 100 mg PO HS 10/24/20 12/18/22 Atorvastatin [Lipitor] 40 mg PO HS 10/19/21 12/18/22 Nicotine 21Mg/24Hr Patch [Habitrol] 1 patch TRANSDERM DAILY 03/19/22 12/18/22 sitaGLIPtin [Januvia] 100 mg PO DAILY 03/19/22 12/18/22 Albuterol Inhaler [Ventolin Hfa 2 puff INHALATION RT-Q6H PRN 11/02/22 12/18/22 Inhaler] Ergocalciferol (Vitamin D2) 1,250 mcg PO SA 11/02/22 12/18/22 [Drisdol (50,000 Iu)] Metoprolol Tartrate [Lopressor] 25 mg PO BID 11/02/22 12/18/22 Tiotropium Br/Olodaterol HCl 1 puff INHALATION RT-DAILY PRN 11/02/22 12/18/22 [Stiolto Respimat Inhal [place]] Cholecalciferol [Vitamin D3 (25 25 mcg PO DAILY 12/18/22 12/18/22 Mcg = 1000 Iu)] Glimepiride [Amaryl] 4 mg PO BID 12/18/22 12/18/22 Insulin Lispro [humaLOG Kwikpen] See Protocol SQ ACHS 12/18/22 12/18/22 Ipratropium-Albuterol Nebulize 3 ml INHALATION RT-Q6H PRN 12/18/22 12/18/22 [Duoneb 0.5 mg-3 mg/3 ml Soln] Metoclopramide [Reglan] 5 mg PO Q8H PRN 12/18/22 12/18/22 Ondansetron [Zofran] 4 mg PO Q6H PRN 12/18/22 12/18/22 cloZAPine [Clozaril] 200 mg PO HS 12/18/22 12/18/22 metFORMIN HCL [Glucophage] 500 mg PO BID 12/18/22 12/18/22 Previous Rx's Medication Instructions Recorded Acetaminophen Tab [Tylenol] 650 mg PO Q6HR PRN tab 12/07/22 LORazepam [Ativan] 0.5 mg PO DAILY PRN #2 tab 12/07/22 traZODone HCL [Desyrel] 50 mg PO HS PRN tab 12/07/22 Magnesium Oxide [Mag-Ox] 400 mg PO Q6H 28 Days #28 tab 12/25/22 Pantoprazole [Protonix] 40 mg PO BID 30 Days #60 tab 12/25/22 Allergies Allergy/AdvReac Type Severity Reaction Status Date / Time haloperidol [From Haldol] AdvReac Muscles Verified 01/22/23 10:36 freeze up in arms and hands haloperidol lactate AdvReac Muscles Verified 01/22/23 10:36 [From Haldol] freeze up in arms and hands Review of Systems ROS Statement: Those systems with pertinent positive or pertinent negative responses have been documented in the HPI. ROS Other: All systems not noted in ROS Statement are negative. Past Medical History Past Medical History: COPD, Diabetes Mellitus, GERD/Reflux, Hypertension, Osteoarthritis (OA), Pulmonary Embolus (PE), Seizure Disorder Additional Past Medical History / Comment(s): Hx of colon polyps, neuorgenic bladder, anemia, self caths at home, thyroid nodule, UTI with hospital admission september 2021- klebsiella treated with ceftin History of Any Multi-Drug Resistant Organisms: ESBL Date of last positivie culture/infection: 12/01/22 MDRO Source:: Urine Past Surgical History: Back Surgery, Breast Surgery, Ear Surgery Additional Past Surgical History / Comment(s): hunter breast reduction, breast biopsy, bladder stimulator implant, skin grafts to ear Past Anesthesia/Blood Transfusion Reactions: No Reported Reaction Past Psychological History: Bipolar, Depression, Schizoaffective Disorder Smoking Status: Current some day smoker Past Alcohol Use History: None Reported Past Drug Use History: None Reported - Past Family History Father Family Medical History: Cancer Additional Family Medical History / Comment(s): lung Sister(s) Family Medical History: Cancer Additional Family Medical History / Comment(s): ovarian General Exam Limitations: no limitations General appearance: alert, in no apparent distress Respiratory exam: Present: normal lung sounds bilaterally. Absent: respiratory distress, wheezes, rales, rhonchi, stridor Cardiovascular Exam: Present: regular rate, normal rhythm, normal heart sounds. Absent: systolic murmur, diastolic murmur, rubs, gallop, clicks Neurological exam: Present: alert, oriented X3, CN II-XII intact Psychiatric exam: Present: normal affect, normal mood Skin exam: Present: warm, dry, intact, normal color. Absent: rash Course Vital Signs 01/22/23 10:34 Temperature 97.9 F Pulse Rate 94 Respiratory 20 Rate Blood Pressure 119/82 O2 Sat by Pulse 99 Oximetry Medical Decision Making - Medical Decision Making Was pt. sent in by a medical professional or institution (, PA, MEDICATION SPECIALIST, urgent care, hospital, or correction...) When possible be specific @ -No Did you speak to anyone other than the patient for history (EMS, parent, family, police, friend...)? What history was obtained from this source @ -No Did you review nursing and triage notes (agree or disagree)? Why? @ -I reviewed and agree with nursing and triage notes Were old charts reviewed (outside hosp., previous admission, EMS record, old EKG, old radiological studies, urgent care reports/EKG's, correction records)? Report findings @ -No old charts were reviewed Differential Diagnosis (chest pain, altered mental status, abdominal pain women, abdominal pain men, vaginal bleeding, weakness, fever, dyspnea, syncope, headache, dizziness, GI bleed, back pain, seizure, CVA, palpatations, mental health, musculoskeletal)? @ -Differential Abdominal Pain Women:Appendicitis, Cholecystitis, diverticulosis, ischemic bowel, pancreatitis, hepatitis, UTI, gastroenteritis, AAA, incarcerated hernia, bowel obstruction, constipation, inflammatory bowel, hepatitis, peptic ulcer disease, splenic infarction, perforated viscus, vulvitis, ovarian torsion, PID, kidney stone, placenta abruption, this is not meant to be an all-inclusive listable EKG interpreted by me (3pts min.). @ -None X-rays interpreted by me (1pt min.). @ -None done CT interpreted by me (1pt min.). @ -None done U/S interpreted by me (1pt. min.). @ -None done What testing was considered but not performed or refused? (CT, X-rays, U/S, lab s)? Why? @ -None What meds were considered but not given or refused? Why? @ -None Did you discuss the management of the patient with other professionals (professionals i.e. , PA, MEDICATION SPECIALIST, lab, RT, psych nurse, social work administrator, infrastructure administrator, teacher, corporate officer, renal case manager)? Give summary @ -No Was smoking cessation discussed for >3mins.? @ -No Was critical care preformed (if so, how long)? @ -No Were there social determinants of health that impacted care today? How? (Homelessness, low income, unemployed, alcoholism, drug addiction, transportation, low edu. Level, literacy, decrease access to med. care, longterm, rehab)? @ -No Was there de-escalation of care discussed even if they declined (Discuss DNR or withdrawal of care, Hospice)? DNR status @ -No What co-morbidities impacted this encounter? (DM, HTN, Smoking, COPD, CAD, Cancer, CVA, ARF, Chemo, Hep., AIDS, mental health diagnosis, sleep apnea, morbid obesity)? @ -None Was patient admitted / discharged? Hospital course, mention meds given and route, prescriptions, significant lab abnormalities, going to OR and other pertinent info. @ -Discharge. On examination patient's vitals remained stable. Patient's catheter bag was replaced. Patient has no other complaints at this time. Patient be discharged in stable condition with follow-up to PCP. Undiagnosed new problem with uncertain prognosis? @ -No Drug Therapy requiring intensive monitoring for toxicity (Heparin, Nitro, Insulin, Cardizem)? @ -No Were any procedures done? @ -No Diagnosis/symptom? @ -Recheck urinary catheter Acute, or Chronic, or Acute on Chronic? @ -Acute Uncomplicated (without systemic symptoms) or Complicated (systemic symptoms)? @ -Uncomplicated Side effects of treatment? @ -No Exacerbation, Progression, or Severe Exacerbation? @ -No Poses a threat to life or bodily function? How? (Chest pain, [place], [place], pneumonia, PE, COPD, DKA, ARF, appy, cholecystitis, CVA, Diverticulitis, Homicidal, Suicidal, threat to staff... and all critical care pts) @ -No Disposition Clinical Impression: Urinary catheter (Taylor) change required Disposition: HOME SELF-CARE Condition: Stable Additional Instructions: Please return to the Emergency Department if symptoms worsen or any other concerns. Is patient prescribed a controlled substance at d/c from ED?: No Referrals: Gamal Stuart DO [Primary Care Provider] - 1-2 days Time of Disposition: 11:09
--- NOTE | 2023-02-20 23:02 | CT ---
EXAM: CT Head Without Intravenous Contrast CLINICAL HISTORY: Possible fall TECHNIQUE: Axial computed tomography images of the head/brain without intravenous contrast. CTDI is 49.1 mGy and DLP is 1109.4 mGy-cm. This CT exam was performed using one or more of the following dose reduction techniques: automated exposure control, adjustment of the mA and/or kV according to patient size, and/or use of iterative reconstruction technique. COMPARISON: CT head without contrast dated 03/19/2022 FINDINGS: Brain: No intracranial hemorrhage. No mass effect. No evidence for cortical infarct. The parenchyma is similar in appearance to the previous examination with stable mild periventricular deep white matter hypodense changes noted. Ventricles: Unremarkable. No ventriculomegaly. Bones/joints: Unremarkable. No acute fracture. Soft tissues: Unremarkable. Sinuses: Mucosal opacification of a few right-sided ethmoid air cells. The remaining paranasal sinuses are well-aerated. Mastoid air cells: Unremarkable as visualized. No mastoid effusion. IMPRESSION: No acute intracranial process or significant alteration when compared to the previous examination.
[2023-02-20] MEDS: AMPICILLIN-SULBACTAM 1.5 GM in SODIUM CHLORIDE 0.9% 50 ML IVPB SCH (23:35)
[2023-02-20] MEDS: SODIUM CHLORIDE 0.9% 1,000 ML IV SCH (23:36)
[2023-02-20 23:47] LABS: Basophils % (A) 0 %; Eosinophils % (A) 0 %; HCT 36.5 % (34.0-46.0); Lymphocytes # (A) 1.9 k/uL (1.0-4.8); Lymphocytes % (A) 43 %; Mean Platelet Volume 8.6; Monocytes # (A) 0.3 k/uL (0-1.0); Monocytes % (A) 7 %; Neutrophils # (A) 2.1 k/uL (1.3-7.7); Neutrophils % (A) 47 %; Platelet Count 145 k/uL (150-450); RBC 4.15 m/uL (3.80-5.40); RDW 14.5 % (11.5-15.5); WBC 4.5 k/uL (3.8-10.6)
[2023-02-21 00:01] LABS: ALT 18 U/L (4-34); AST 24 U/L (14-36); African American GFR (CKD) 72 (>60 ml/min/1.73 sqM); Albumin 3.7 g/dL (3.5-5.0); Alkaline Phosphatase 69 U/L (38-126); Anion Gap 12 mmol/L; Blood Urea Nitrogen 17 mg/dL (7-17); Calcium 9.1 mg/dL (8.4-10.2); Carbon Dioxide 27 mmol/L (22-30); Chloride 100 mmol/L (98-107); Glucose 133 mg/dL (74-99); Non-African American GFR(CKD) 62 (>60 ml/min/1.73 sqM); Potassium 3.2 mmol/L (3.5-5.1); Sodium 139 mmol/L (137-145); Total Bilirubin 0.5 mg/dL (0.2-1.3); Total Protein 6.3 g/dL (6.3-8.2)
--- NOTE | 2023-02-21 00:14 | XR ---
EXAM: XR Chest, 1 View CLINICAL HISTORY: r/o aspiration TECHNIQUE: Frontal view of the chest. COMPARISON: Portable chest single view dated 11/30/2022 FINDINGS: Lungs: Unremarkable. No consolidation. The pulmonary vasculature demonstrates no significant radiographic abnormality. Pleural space: Unremarkable. No pneumothorax. No large pleural effusion. Heart: Unremarkable. No cardiomegaly. Mediastinum: The mediastinal contours are stable. The trachea is midline. Bones/joints: Unremarkable. No acute fracture. IMPRESSION: No acute cardiopulmonary process or significant alteration when compared to the previous examination.
[2023-02-21 00:23] LABS: Appearance,Urine Clear (Clear); Bilirubin,Urine Negative (Negative); Blood,Urine Negative (Negative); Color,Urine Colorless; Glucose,Urine (UA) Negative (Negative); Ketones,Urine Negative (Negative); Leukocyte Esterase,Urine Negative (Negative); Nitrite,Urine Negative (Negative); Protein,Urine Negative (Negative); Urobilinogen,Urine <2.0 mg/dL (<2.0)
[2023-02-21] MEDS ORDERED: Potassium Replacement Protocol 1 EACH MISC MISCELLANE PRN (00:33)
[2023-02-21] MEDS ORDERED: Magnesium Replacement Protocol 1 EACH MISC MISCELLANE PRN (00:35)
[2023-02-21] MEDS ORDERED: Phosphorus Replacement Protoco 1 EACH MISC MISCELLANE PRN (00:35)
[2023-02-21] MEDS ORDERED: NALOXONE 0.4 MG/ML 1 ML VIAL IV PRN (00:35)
[2023-02-21] MEDS: POTASSIUM CHLORIDE 10 MEQ in WATER FOR INJECTION 1 100ML.BAG IVPB SCH ×4 (01:12→04:14)
[2023-02-21 01:41] LABS: Cocaine Screen,Urine Not Detected (NotDetected); Phencyclidine Screen,Urine Not Detected (NotDetected); Urn Cannabinoid Scrn Not Detected (NotDetected)
[2023-02-21 01:42] LABS: Amphetamine Screen,Urine Not Detected (NotDetected); Barbiturate Screen,Urine Not Detected (NotDetected); Benzodiazepines Screen,Urine Not Detected (NotDetected); Methadone Screen, Urine Not Detected (NotDetected); Opiate Screen,Urine Not Detected (NotDetected); Oxycodone Screen, Urine Not Detected (NotDetected); Tricyclic Antidepressant,Urine Not Detected (NotDetected)
[2023-02-21 05:11] LABS: Basophils % (A) 0 %; Eosinophils % (A) 0 %; HCT 35.7 % (34.0-46.0); HGB 11.6 gm/dL (11.4-16.0); Lymphocytes # (A) 1.8 k/uL (1.0-4.8); Lymphocytes % (A) 37 %; MCH 28.6 pg (25.0-35.0); MCHC 32.5 g/dL (31.0-37.0); MCV 87.9 fL (80.0-100.0); Mean Platelet Volume 8.1; Monocytes # (A) 0.3 k/uL (0-1.0); Monocytes % (A) 5 %; Neutrophils # (A) 2.7 k/uL (1.3-7.7); Neutrophils % (A) 56 %; Platelet Count 144 k/uL (150-450); RBC 4.06 m/uL (3.80-5.40); RDW 14.6 % (11.5-15.5); WBC 4.8 k/uL (3.8-10.6)
[2023-02-21 05:25] LABS: African American GFR (CKD) 80 (>60 ml/min/1.73 sqM); Anion Gap 9 mmol/L; Blood Urea Nitrogen 14 mg/dL (7-17); Calcium 8.9 mg/dL (8.4-10.2); Carbon Dioxide 26 mmol/L (22-30); Chloride 104 mmol/L (98-107); Glucose 110 mg/dL (74-99); Magnesium 1.9 mg/dL (1.6-2.3); Non-African American GFR(CKD) 69 (>60 ml/min/1.73 sqM); Phosphorus 4.7 mg/dL (2.5-4.5); Sodium 139 mmol/L (137-145)
[2023-02-21] MEDS: SODIUM CHLORIDE 0.9% 1,000 ML IV SCH ×2 (08:13→17:55)
[2023-02-21] MEDS: AMPICILLIN-SULBACTAM 1.5 GM in SODIUM CHLORIDE 0.9% 50 ML IVPB SCH ×3 (08:13→23:22)
[2023-02-21] MEDS ORDERED: ERGOCALCIFEROL 1,250 MCG (50,000 IU) CAPSULE PO SCH (12:15)
[2023-02-21] MEDS ORDERED: DEXTROSE 50% SYRINGE 50 ML IVP PRN ×2 (12:30)
[2023-02-21] MEDS ORDERED: ALBUTEROL HFA INHALER INHALATION PRN (12:30)
[2023-02-21] MEDS: INSULIN ASPART (NovoLOG) 100 UNIT/ML VIAL SQ SCH ×3 (13:16→21:13)
[2023-02-21] MEDS: APIXABAN 5 MG TAB PO SCH ×2 (13:27→21:17)
[2023-02-21] MEDS: TAMSULOSIN 0.4 MG CAP.ER.24H PO SCH (13:27)
--- NOTE | 2023-02-21 14:21 | P.CN ---
Psychiatric Consult - . Consult date: 02/21/23 Consult:: 02/21/23 14:12 This is a psychiatric follow-up on Veronique Dukes was a 57-year-old female and was hospitalized on the psychiatric unit for acute mental status changes Patient carries a diagnoses of schizoaffective disorder and has been on multiple psychotropic medications that includes Clazuril and long-acting Prolixin Place refer to my initial admission note of 02/20/23 for further details The patient was transferred to the medical floor for catheter issues Patient had been complaining that she needed a catheter bag change due to leakage When seen today patient was trying to have her lunch seemed to be struggling She reports that she was seeing some car that when by any her house wasn't sure as to what was going on She also reports that she was sometimes seeing things She reports that she sees a flower across her although it appears to be more of a right I tell him which appears to be an issue with the illusion Patient denies any suicidal or homicidal ideations She reports that she takes several psychotropic medications for a long period of time She says that she lives by herself and has a sister who watches over her She denies any suicidal or homicidal ideations or plans She states that she takes her medications as prescribed and also takes a shot as directed Mental Status Exam: General Appearance: Patient appears to be stated age is alert, directable. Patient appears to have improving Grooming appears to have improved Behavior: Patient is sitting up in the bed and having her breakfast Speech: Patient's speech is appropriate Mood/Affect: Patient reports their mood is "okay affect is congruent Suicidality/Homicidality: Patient denies having any suicidal or homicidal ideation intent or plan. Perceptions: Patient denies any visual hallucinations and denies any auditory hallucinations as to be dealing more with an illusion Though content/process: Thought processes are concrete and simple. Rambles at times. Memory and concentration: AOX3, grossly intact for the purposes of this session Judgment and insight: Chronically poor/limited IMPRESSIONS: Schizoaffective disorder Somatoform disorder Plan: The patient at this time appears to have shown improvement since her admission where she does not appear to be exhibiting any of the bizarre catatonic-like symptoms Patient is able to appropriately request for her bladder help and other somatic needs Patient seems to exhibit appropriate insight about her illness and need for treatment Her previous hospitalizations all affect medical issues and mainly related to her bladder problems and catheter related issues Patient has been restarted back on the clozapine 200 mg at nighttime Would recommend that the patient continue her current psychotropic medications and also get her Prolixin decanoate IM 50 mg before discharge Patient does not appear to be in need of being transferred back to the psychiatric unit Would recommend ongoing psychiatric outpatient follow-up as previously recommended with her psychiatrist and mental health services as well as home health services as needed Thank you very much for your kind referral and procedures to contact me if any further questions Yann Glynn M.D.
--- NOTE | 2023-02-21 14:52 | P.CRDCN ---
History of Present Illness Consult date: 02/21/23 History of present illness: History of Present Illness: The patient is a 57-year-old female who was admitted to the psych unit with schizoaffective disorder. She was transferred to the telemetry floor because of change in mental status. Cardiology consultation was requested because of tachycardia. The patient is awake, the accuracy of her history is unclear. She complains of dyspnea on exertion and occasional chest discomfort. In the ICU she is in sinus tachycardia with no evidence of malignant arrhythmia. According to her she has no prior cardiac history. She has no history of heart failure or ischemic heart disease. There is no documented arrhythmia. She answers some of the questions yes so the accuracy is unclear. She has a history of hypertension , diabetes and hyperlipidemia. She is anticoagulated with reviewing the records in 2020 she was diagnosed with pulmonary embolism. She is a smoker. She had an echocardiogram in July 2021 that revealed a preserved systolic function with mild tricuspid regurgitation. Medications: Flomax, Lopressor 25 mg twice a day, Lipitor 40 mg daily, Amaryl, Januvia, albuterol, insulin,Eliquis milligrams twice a day Review of Systems: Accuracy is limited Respiratory: The patient complains of dyspnea on exertion and cough GI: No nausea or vomiting . No history of peptic ulcer disease. No recent GI bleed. : No hematuria or dysuria. Nervous System: No stroke or seizure. Physical Examination: 57-year-old female, alert no up in distress,Blood pressure 136/80, Heart rate 110 Head: Normocephalic. Eyes: Sclerae nonicteric. Neck: Good carotid upstroke, no bruit, no jugular venous distention. Lungs: Clear to auscultation. Heart: Regular rate and rhythm, S1-S2, no S3, no rub. Systolic ejection murmur. Abdomen: Soft nontender, positive bowel sounds no organomegaly. Extremities: No edema, intact distal pulses. Labs: Hemoglobin 11.6, BUN 14, creatinine 0.91. EKG: Not available Impression: 1. Schizoaffective disorder 2. Sinus tachycardia 3. History of hypertension 4. History of hyperlipidemia 5. History of diabetes 6. Chronic tobacco use 7. Prior history of pulmonary embolism Plan: 1. Continue beta tip and statin 2. The sinus tachycardia could be related to her psychiatric situation, there is no evidence of active cardiac disease at this time 3. Obtain an echocardiogram with Doppler 4. At this time will continue clinical observation. No indication for further cardiac workup unless there is abnormalities on her echocardiogram 5. Thank you for this consult we will follow with you Past Medical History Past Medical History: COPD, Diabetes Mellitus, GERD/Reflux, Hypertension, Osteoarthritis (OA), Pulmonary Embolus (PE), Seizure Disorder Additional Past Medical History / Comment(s): Hx of colon polyps, neuorgenic bladder, anemia, self caths at home, thyroid nodule, UTI with hospital admission september 2021- klebsiella treated with ceftin History of Any Multi-Drug Resistant Organisms: ESBL Date of last positivie culture/infection: 12/01/22 MDRO Source:: Urine Past Surgical History: Back Surgery, Breast Surgery, Ear Surgery Additional Past Surgical History / Comment(s): hunter breast reduction, breast biopsy, bladder stimulator implant, skin grafts to ear Past Anesthesia/Blood Transfusion Reactions: No Reported Reaction Past Psychological History: Bipolar, Depression, Schizoaffective Disorder Smoking Status: Current some day smoker Past Alcohol Use History: None Reported Past Drug Use History: None Reported - Past Family History Father Family Medical History: Cancer Additional Family Medical History / Comment(s): lung Sister(s) Family Medical History: Cancer Additional Family Medical History / Comment(s): ovarian Medications and Allergies Home Medications Medication Instructions Recorded Confirmed Type fluPHENAZine decanoate [Prolixin 50 mg IM Q14D 01/21/16 02/21/23 History Decanoate] Tamsulosin [Flomax] 0.4 mg PO DAILY 03/13/17 02/21/23 History Apixaban [Eliquis] 5 mg PO BID 10/24/20 02/21/23 History fluvoxaMINE MALEATE [Luvox] 100 mg PO HS 10/24/20 02/21/23 History Atorvastatin [Lipitor] 40 mg PO HS 10/19/21 02/21/23 History sitaGLIPtin [Januvia] 100 mg PO DAILY 03/19/22 02/21/23 History Albuterol Inhaler [Ventolin Hfa 2 puff INHALATION RT-Q6H PRN 11/02/22 02/21/23 History Inhaler] Ergocalciferol (Vitamin D2) 1,250 mcg PO Q14D 11/02/22 02/21/23 History [Drisdol (50,000 Iu)] Metoprolol Tartrate [Lopressor] 25 mg PO BID 11/02/22 02/21/23 History Insulin Lispro [humaLOG Kwikpen] See Protocol SQ ACHS 12/18/22 02/21/23 History Budesonide/Formoterol Fumarate 2 puff INHALATION RT-BID 02/19/23 02/21/23 History [Symbicort 160-4.5 Mcg Inhaler] Famotidine 40 mg PO BID 02/19/23 02/21/23 History Glimepiride [Amaryl] 4 mg PO BID 02/19/23 02/21/23 History Magnesium Oxide [Mag-Ox] 800 mg PO DAILY 02/19/23 02/21/23 History cloZAPine [Clozaril] 200 mg PO HS 02/19/23 02/21/23 History Allergies Allergy/AdvReac Type Severity Reaction Status Date / Time haloperidol [From Haldol] AdvReac Muscles Verified 02/19/23 20:59 freeze up in arms and hands haloperidol lactate AdvReac Muscles Verified 02/19/23 20:59 [From Haldol] freeze up in arms and hands Physical Exam Vitals: Vital Signs Temp Pulse Resp BP Pulse Ox 02/21/23 13:03 93 L 02/21/23 13:00 123 H 23 136/83 87 L 02/21/23 12:00 98.1 F 96 25 H 138/82 93 L 02/21/23 11:00 91 20 129/93 94 L 02/21/23 10:00 103 H 21 139/109 92 L 02/21/23 09:00 78 18 120/96 93 L 02/21/23 08:00 97.9 F 93 7 L 131/71 94 L 02/21/23 07:00 93 19 127/79 92 L 02/21/23 06:00 89 19 135/81 97 02/21/23 05:00 94 15 126/72 96 02/21/23 04:00 98.2 F 90 20 135/80 97 02/21/23 03:00 94 19 110/74 100 02/21/23 02:00 89 18 99/74 98 02/21/23 01:00 85 20 100/74 97 02/21/23 00:30 97.7 F 84 20 100/74 96 02/21/23 00:26 86 21 97 Intake and Output 02/20/23 02/21/23 02/21/23 22:59 06:59 14:59 Intake Total 900 600 Output Total 965 925 Balance -65 -325 Intake: IV 900 600 Sodium Chloride 0.9% 1, 900 600 000 ml @ 100 mls/hr IV . Q10H [facility] Rx#:[id number] Output: Urine 965 925 Other: Voiding Method Indwelling Catheter Indwelling Catheter Weight 65.6 kg Results 02/21/23 04:42 02/21/23 04:42 Cardiac Enzymes 02/20/23 Range/Units 23:19 AST 24 (14-36) U/L CBC 02/20/23 02/21/23 Range/Units 23:28 04:42 WBC 4.5 4.8 (3.8-10.6) k/uL RBC 4.15 4.06 (3.80-5.40) m/uL Hgb 12.0 11.6 (11.4-16.0) gm/dL Hct 36.5 35.7 (34.0-46.0) % Plt Count 145 L 144 L (150-450) k/uL Comprehensive Metabolic Panel 02/20/23 02/21/23 Range/Units 23:19 04:42 Sodium 139 139 (137-145) mmol/L Potassium 3.2 L 4.0 (3.5-5.1) mmol/L Chloride 100 104 (98-107) mmol/L Carbon Dioxide 27 26 (22-30) mmol/L BUN 17 14 (7-17) mg/dL Creatinine 1.00 0.91 (0.52-1.04) mg/dL Glucose 133 H 110 H (74-99) mg/dL Calcium 9.1 8.9 (8.4-10.2) mg/dL AST 24 (14-36) U/L ALT 18 (4-34) U/L Alkaline Phosphatase 69 (38-126) U/L Total Protein 6.3 (6.3-8.2) g/dL Albumin 3.7 (3.5-5.0) g/dL Current Medications Generic Name Dose Route Start Last Admin Trade Name Freq PRN Reason Stop Dose Admin Albuterol Sulfate 2 puff 02/21/23 12:30 Albuterol Hfa Inhaler INHALATION RT-Q6H PRN Shortness Of Breath Apixaban 5 mg 02/21/23 12:15 02/21/23 13:27 Apixaban 5 Mg Tab PO 5 mg BID JONES Administration Protocol Atorvastatin Calcium 40 mg 02/21/23 21:00 Atorvastatin 40 Mg Tab PO HS [facility] Budesonide/Formoterol Fumarate 2 puff 02/21/23 20:00 Symbicort 160-4.5 Mcg Inhaler INHALATION RT-BID JONES Clozapine 200 mg 02/21/23 21:00 Clozapine 100 Mg Tab PO 02/22/23 23:00 HS JONES Dextrose/Water 25 ml 02/21/23 12:30 Dextrose 50% Syringe 50 Ml IVP PER PROTOCOL PRN Hypoglycemia Protocol Dextrose/Water 50 ml 02/21/23 12:30 Dextrose 50% Syringe 50 Ml IVP PER PROTOCOL PRN Hypoglycemia Protocol Famotidine 40 mg 02/21/23 21:00 Famotidine 20 Mg Tab PO BID JONES Glimepiride 4 mg 02/21/23 17:30 Glimepiride 4 Mg Tab PO AC-BID JONES Sodium Chloride 1,000 mls @ 100 mls/hr 02/20/23 23:15 02/21/23 08:13 Saline 0.9% IV 100 mls/hr .Q10H JONES Administration Ampicillin Sodium/Sulbactam 50 mls @ 100 mls/hr 02/21/23 00:00 02/21/23 08:13 Sodium 1.5 gm/ Sodium Chloride IVPB 100 mls/hr Q8HR JONES Administration Protocol Insulin Aspart 0 unit 02/21/23 12:30 02/21/23 13:16 Insulin Aspart (Novolog) 100 Unit/Ml Vial SQ Not Given ACHS [facility] Protocol Linagliptin 5 mg 02/22/23 09:00 Linagliptin 5 Mg Tablet PO DAILY [facility] Magnesium Oxide 800 mg 02/22/23 09:00 Magnesium Oxide 400 Mg Tab PO DAILY [facility] Metoprolol Tartrate 25 mg 02/21/23 21:00 Metoprolol Tartrate 25 Mg Tab PO BID [facility] Miscellaneous Information 1 each 02/21/23 00:33 Potassium Replacement Protocol 1 Each Misc MISCELLANE DAILY PRN Per Protocol Protocol Miscellaneous Information 1 each 02/21/23 00:35 Magnesium Replacement Protocol 1 Each Misc MISCELLANE DAILY PRN Per Protocol Protocol Miscellaneous Information 1 each 02/21/23 00:35 Phosphorus Replacement Protoco 1 Each Misc MISCELLANE DAILY PRN Per Protocol Protocol Naloxone HCl 0.2 mg 02/21/23 00:35 Naloxone 0.4 Mg/Ml 1 Ml Vial IV Q2M PRN Opioid Reversal Tamsulosin HCl 0.4 mg 02/21/23 12:15 02/21/23 13:27 Tamsulosin 0.4 Mg Cap.Er.24h PO 0.4 mg DAILY JONES Administration Intake and Output 02/20/23 02/21/23 02/21/23 22:59 06:59 14:59 Intake Total 900 600 Output Total 965 925 Balance -65 -325 Intake: IV 900 600 Sodium Chloride 0.9% 1, 900 600 000 ml @ 100 mls/hr IV . Q10H [facility] Rx#:[id number] Output: Urine 965 925 Other: Voiding Method Indwelling Catheter Indwelling Catheter Weight 65.6 kg 02/21/23 04:42 02/21/23 04:42
--- NOTE | 2023-02-21 15:37 | P.CNPUL ---
History of Present Illness Consult date: 02/21/23 Chief complaint: altered mental statu History of present illness: This is a 57-year-old female patient, hospitalized for altered mental status. The patient is known to have schizoaffective disorder and she has been maintained on multiple medications including Clozaril and Prolixin. The patient has been living alone and she has been watched over by her sister. Apparently, the patient was taken her psychiatric medication and she could've missed a few doses. No history of any drug overdose. No 68 substance abuse. No septal alcoholism. He was drug screen was negative. She was having some delusions and she was seeing things. The sister also noted some bizarre behavior including some catatonic behavior and for that reason the patient was brought into the hospital. Her workup included a CBC and complete metabolic profile that was essentially within normal. UA was normal. Urine drug screen was also within normal limits. CAT scan of the brain showed no acute abnormalities pH chest x- ray was within normal limits. She is afebrile at this point in time. She is on room air oxygen. She is communicating. The sister at the bedside. No nausea. No vomiting. No chest pain. No shortness of breath. No focal neurological deficit at this point in time. No headaches. She is demented on long-term and cognition without liquids as the patient has previous history of pulmonary embolism that occurred back in 2020. Since then, she has limited on anticoagulants. Patient was seen by cardiology. Echocardiogram was ordered. Review of Systems ROS unobtainable: due to mental status Past Medical History Past Medical History: COPD, Diabetes Mellitus, GERD/Reflux, Hypertension, Osteoarthritis (OA), Pulmonary Embolus (PE), Seizure Disorder Additional Past Medical History / Comment(s): Hx of colon polyps, neuorgenic bladder, anemia, self caths at home, thyroid nodule, UTI with hospital admission september 2021- klebsiella treated with ceftin History of Any Multi-Drug Resistant Organisms: ESBL Date of last positivie culture/infection: 12/01/22 MDRO Source:: Urine Past Surgical History: Back Surgery, Breast Surgery, Ear Surgery Additional Past Surgical History / Comment(s): hunter breast reduction, breast biopsy, bladder stimulator implant, skin grafts to ear Past Anesthesia/Blood Transfusion Reactions: No Reported Reaction Past Psychological History: Bipolar, Depression, Schizoaffective Disorder Smoking Status: Current some day smoker Past Alcohol Use History: None Reported Past Drug Use History: None Reported - Past Family History Father Family Medical History: Cancer Additional Family Medical History / Comment(s): lung Sister(s) Family Medical History: Cancer Additional Family Medical History / Comment(s): ovarian Medications and Allergies Home Medications Medication Instructions Recorded Confirmed Type fluPHENAZine decanoate [Prolixin 50 mg IM Q14D 01/21/16 02/21/23 History Decanoate] Tamsulosin [Flomax] 0.4 mg PO DAILY 03/13/17 02/21/23 History Apixaban [Eliquis] 5 mg PO BID 10/24/20 02/21/23 History fluvoxaMINE MALEATE [Luvox] 100 mg PO HS 10/24/20 02/21/23 History Atorvastatin [Lipitor] 40 mg PO HS 10/19/21 02/21/23 History sitaGLIPtin [Januvia] 100 mg PO DAILY 03/19/22 02/21/23 History Albuterol Inhaler [Ventolin Hfa 2 puff INHALATION RT-Q6H PRN 11/02/22 02/21/23 History Inhaler] Ergocalciferol (Vitamin D2) 1,250 mcg PO Q14D 11/02/22 02/21/23 History [Drisdol (50,000 Iu)] Metoprolol Tartrate [Lopressor] 25 mg PO BID 11/02/22 02/21/23 History Insulin Lispro [humaLOG Kwikpen] See Protocol SQ ACHS 12/18/22 02/21/23 History Budesonide/Formoterol Fumarate 2 puff INHALATION RT-BID 02/19/23 02/21/23 History [Symbicort 160-4.5 Mcg Inhaler] Famotidine 40 mg PO BID 02/19/23 02/21/23 History Glimepiride [Amaryl] 4 mg PO BID 02/19/23 02/21/23 History Magnesium Oxide [Mag-Ox] 800 mg PO DAILY 02/19/23 02/21/23 History cloZAPine [Clozaril] 200 mg PO HS 02/19/23 02/21/23 History Allergies Allergy/AdvReac Type Severity Reaction Status Date / Time haloperidol [From Haldol] AdvReac Muscles Verified 02/19/23 20:59 freeze up in arms and hands haloperidol lactate AdvReac Muscles Verified 02/19/23 20:59 [From Haldol] freeze up in arms and hands Physical Exam Vitals: Vital Signs Temp Pulse Resp BP Pulse Ox 02/21/23 15:00 104 H 29 H 113/63 93 L 02/21/23 14:00 121 H 6 L 128/79 98 02/21/23 13:03 93 L 02/21/23 13:00 123 H 23 136/83 87 L 02/21/23 12:00 98.1 F 96 25 H 138/82 93 L 02/21/23 11:00 91 20 129/93 94 L 02/21/23 10:00 103 H 21 139/109 92 L 02/21/23 09:00 78 18 120/96 93 L 02/21/23 08:00 97.9 F 93 7 L 131/71 94 L 02/21/23 07:00 93 19 127/79 92 L 02/21/23 06:00 89 19 135/81 97 02/21/23 05:00 94 15 126/72 96 02/21/23 04:00 98.2 F 90 20 135/80 97 02/21/23 03:00 94 19 110/74 100 02/21/23 02:00 89 18 99/74 98 02/21/23 01:00 85 20 100/74 97 02/21/23 00:30 97.7 F 84 20 100/74 96 02/21/23 00:26 86 21 97 Intake and Output 02/21/23 02/21/23 02/21/23 06:59 14:59 22:59 Intake Total 900 700 100 Output Total 965 1025 100 Balance -65 -325 0 Intake: IV 900 700 100 Sodium Chloride 0.9% 1, 900 700 100 000 ml @ 100 mls/hr IV . Q10H [facility] Rx#:[id number] Output: Urine 965 1025 100 Other: Voiding Method Indwelling Catheter Indwelling Catheter Weight 65.6 kg Gen. appearance the patient is calm and comfortable not acute distress on room air oxygen, body mass index is 27.3 Head exam was generally normal. There was no scleral icterus or corneal arcus. Mucous membranes were moist. Neck was supple and without jugular venous distension, thyromegaly, or carotid bruits. Carotids were easily palpable bilaterally. There was no adenopathy. Lungs were clear to auscultation and percussion, and with normal diaphragmatic excursion. No wheezes or rales were noted. Cardiac exam revealed the PMI to be normally situated and sized. The rhythm was regular and no extrasystoles were noted during several minutes of auscultation. The first and second heart sounds were normal and physiologic splitting of the second heart sound was noted. There were no murmurs, rubs, clicks, or gallops. Abdominal exam revealed normal bowel sounds. The abdomen was soft, non-tender, and without masses, organomegaly, or appreciable enlargement of the abdominal aorta. Examination of the extremities revealed easily palpable radial, femoral and pedal pulses. There was no cyanosis, clubbing or edema. Examination of the skin revealed no evidence of significant rashes, suspicious appearing nevi or other concerning lesions. Neurologically is no focal neurological deficit and the patient is moving all 4 extremities without any limitation. No issues with swallow. Psychiatric evaluation was done by psychiatry. Results - Laboratory Findings CBC and BMP: 02/21/23 04:42 02/21/23 04:42 PT/INR, D-dimer D-Dimer 0.41 mg/L FEU (<0.60) 02/21/23 13:10 Abnormal lab findings: Abnormal Labs 02/20/23 02/20/23 02/21/23 23:19 23:28 04:42 Plt Count 145 L 144 L Potassium 3.2 L Glucose 133 H Phosphorus C-Reactive Protein 02/21/23 02/21/23 04:42 13:10 Plt Count Potassium Glucose 110 H Phosphorus 4.7 H C-Reactive Protein 2.3 H - Diagnostic Findings Chest x-ray: image reviewed Assessment and Plan Plan: Schizoaffective disorder/somatoform disorder, improved since yesterday and the patient is not exhibiting any illusions or delusions or any bizarre continue to make symptoms at this point in time. Remote history of pulmonary embolism maintain on anticoagulation with Eliquis History of frequent UTIs with previous gram-negative urinary tract infection and the patient has a neurogenic bladder and undergoes self catheterization at home. The patient does not have any signs or symptoms of UTI and the UA was negative. Hypertension Hyperlipidemia Diabetes mellitus Previous history of smoking Osteoarthritis Seizure disorder. History of colonic polyps History of implantation of the bladder stimulator Plan Medical condition is stable for now Coverage with broad-spectrum antibiotics pending cultures We will consult with psychiatry regarding his psychiatric medications Continue Clozaril 200 mg at bedtime for the time being Continue diabetic medications Beta blockers with metoprolol 25 mg by mouth twice a day IV fluids Echocardiogram was ordered CAT scan of the brain is negative We'll complete the workup and transfer the patient to a psychiatric unit at the later stage.
[2023-02-21 16:41] LABS: Glucose,Whole Blood 285 mg/dL (70-110)
[2023-02-21] MEDS: GLIMEPIRIDE 4 MG TAB PO SCH (17:05)
[2023-02-21 17:23] LABS: T4, Free (Free Thyroxine) 2.44 ng/dL (0.78-2.19)
[2023-02-21] MEDS: SYMBICORT 160-4.5 MCG INHALER INHALATION SCH (20:39)
[2023-02-21 21:12] LABS: Glucose,Whole Blood 88 mg/dL (70-110)
[2023-02-21] MEDS: cloZAPine 100 MG TAB PO SCH (21:12)
[2023-02-21] MEDS: METOPROLOL TARTRATE 25 MG TAB PO SCH (21:13)
[2023-02-21] MEDS: ATORVASTATIN 40 MG TAB PO SCH (21:13)
[2023-02-21] MEDS: FAMOTIDINE 20 MG TAB PO SCH (21:13)
--- NOTE | 2023-02-21 21:28 | HP ---
HISTORY AND PHYSICAL CHIEF COMPLAINT: Episode of unresponsiveness. HISTORY OF PRESENT ILLNESS: This is a 57-year-old woman who was admitted to psych floor for psychiatric evaluation of schizoaffective disorder acute exacerbation as well as possibly catatonia, has episodes of unresponsiveness. The patient apparently received Clozaril and the patient is monitored in ICU at this time. There is no history of any fever, rigors, or chills. Initially, CAT scan was normal and blood glucose also acceptable. There is no history of any fever, rigors, or chills at this time. COVID-19, recent COVID-19 is negative. PAST MEDICAL HISTORY: Reviewed include COPD, diabetes, COVID-19, dose and rest of medications noted. MEDICATIONS: Home medications are reviewed include Janumet, doses and rest of medications noted. ALLERGIES: Haloperidol, rest of allergies noted. FAMILY HISTORY: History of ovarian cancer. SOCIAL HISTORY: Smoking. REVIEW OF SYSTEMS: A 14-point review is negative except as mentioned earlier. PHYSICAL EXAMINATION: VITAL SIGNS: Pulse is 78, blood pressure 120/90, and respirations 18. HEENT: Conjunctivae normal. NECK: No jugular venous distention. CARDIOVASCULAR: S1, S2 muffled. RESPIRATIONS: n ABDOMEN: Soft, nontender. LEGS: No edema, no swelling. NERVOUS SYSTEM: No focal deficits. SKIN: No ulcer, rash, bleeding. JOINTS: No active deforming arthropathy. LABS: Showing platelets 144, otherwise rest are normal. ASSESSMENT: 1. Unresponsiveness, rule out syncope, rule out cardiac or neurological causes. 2. Possible TIA. 3. Schizophrenia, acute exacerbation. 4. Possible catatonia, improving. 5. Chronic obstructive pulmonary disease. 6. Diabetes mellitus type 2. 7. Hypertension. 8. History of pulmonary embolism. 9. Seizure disorder. 10.Extended spectrum beta lactamase Klebsiella history. RECOMMENDATIONS: Recommended to continue current medications, continue symptomatic treatment. I would recommend a 2D echo, carotid Doppler, also recommend D-dimer to complete the workup. The D-dimer is positive. I recommended CT angio of chest, Cardiology, Neurology evaluations, telemetry. Prognosis guarded because of multiple complex medical issues. Further recommendations to follow. See orders for details. MMODL / IJN: [id number] / MTDD
--- NOTE | 2023-02-22 01:10 | P.CNNES ---
History of Present Illness Consult date: 02/21/23 Requesting physician: Gogo Yepez Reason for Consult: ams, confused, unresponsive after clozaril History of Present Illness: Patient is a 57-year-old left-handed female came to the hospital today at 10:29 AM for altered mental status. Patient is very confused, not able to provide any history. Patient was brought to the ER for some catheter issues, as the bag was leaking. Patient at present appears very confused, rambling speech, with poor content. Patient has flight of ideas. Patient claims that she lives in an apartment by herself. She states that her sister lives in her own home. She has 2 children, smokes half pack per day. Patient seeing some sentences, which does not make sense like "cooking for somebody that wanted her". Patient states "sister called, don't believe, she hung up on me". Patient is rambling. Patient denies taking excessive doses of medication. She states that she does take medication that she is told. Vital signs on arrival blood pressure 119/82, pulse 94 temperature 97.9. Blood test shows normal CBC, d-dimer, sodium is normal, potassium 3.2, normal renal, hepatic panel. CRP 2.3. TSH is decreased 0.185, with free T4 elevated 2.44. UA negative, urine to screen negative. CT head showed no acute intracranial process. I personally reviewed CT head and agree with the findings. Chest x- ray showed no acute cardiac event process or significant alteration when compared to the previous examination. Patient has been seen by psychiatry, diagnosed with schizoaffective disorder, somatoform disorder. Patient has been seen by neurology team in February 2022 for altered mental status. At that time patient was found in the bed, covered in feces and urine at her home after a welfare check by the police department. It was felt patient has probable delirium/metabolic encephalopathy due to acute UTI/hyponatremia. Patient also had an acute UTI with capsular pneumonia. Patient has diabetes which was not well controlled, history of pulmonary embolism on Eliquis, bipolar disorder, schizoaffective disorder, tobacco use and bladder stimulator implant. Patient had abnormal thyroid functions, low B12. Review of Systems Constitutional: Denies chills, Denies fever Eyes: denies blurred vision, denies decreased vision, denies pain Ears: deny: decreased hearing, ear discharge Ears, nose, mouth and throat: Denies headache, Denies sore throat Cardiovascular: Reports shortness of breath, Denies chest pain Respiratory: Reports cough, Reports excessive sputum Gastrointestinal: Denies abdominal pain, Denies diarrhea, Denies nausea, Denies vomiting Genitourinary: Denies urinary frequency Musculoskeletal: Reports neck pain, Denies low back pain Integumentary: Denies pruritus, Denies rash Neurological: Reports as per HPI Psychiatric: Reports as per HPI, Reports confusion, Reports irritability Past Medical History Past Medical History: COPD, Diabetes Mellitus, GERD/Reflux, Hypertension, Osteoarthritis (OA), Pulmonary Embolus (PE), Seizure Disorder Additional Past Medical History / Comment(s): Hx of colon polyps, neuorgenic bladder, anemia, self caths at home, thyroid nodule, UTI with hospital admission september 2021- klebsiella treated with ceftin History of Any Multi-Drug Resistant Organisms: ESBL Date of last positivie culture/infection: 12/01/22 MDRO Source:: Urine Past Surgical History: Back Surgery, Breast Surgery, Ear Surgery Additional Past Surgical History / Comment(s): hunter breast reduction, breast biopsy, bladder stimulator implant, skin grafts to ear Past Anesthesia/Blood Transfusion Reactions: No Reported Reaction Past Psychological History: Bipolar, Depression, Schizoaffective Disorder Smoking Status: Current some day smoker Past Alcohol Use History: None Reported Past Drug Use History: None Reported - Past Family History Father Family Medical History: Cancer Additional Family Medical History / Comment(s): lung Sister(s) Family Medical History: Cancer Additional Family Medical History / Comment(s): ovarian Medications and Allergies Home Medications Medication Instructions Recorded Confirmed Type fluPHENAZine decanoate [Prolixin 50 mg IM Q14D 01/21/16 02/21/23 History Decanoate] Tamsulosin [Flomax] 0.4 mg PO DAILY 03/13/17 02/21/23 History Apixaban [Eliquis] 5 mg PO BID 10/24/20 02/21/23 History fluvoxaMINE MALEATE [Luvox] 100 mg PO HS 10/24/20 02/21/23 History Atorvastatin [Lipitor] 40 mg PO HS 10/19/21 02/21/23 History sitaGLIPtin [Januvia] 100 mg PO DAILY 03/19/22 02/21/23 History Albuterol Inhaler [Ventolin Hfa 2 puff INHALATION RT-Q6H PRN 11/02/22 02/21/23 History Inhaler] Ergocalciferol (Vitamin D2) 1,250 mcg PO Q14D 11/02/22 02/21/23 History [Drisdol (50,000 Iu)] Metoprolol Tartrate [Lopressor] 25 mg PO BID 11/02/22 02/21/23 History Insulin Lispro [humaLOG Kwikpen] See Protocol SQ ACHS 12/18/22 02/21/23 History Budesonide/Formoterol Fumarate 2 puff INHALATION RT-BID 02/19/23 02/21/23 History [Symbicort 160-4.5 Mcg Inhaler] Famotidine 40 mg PO BID 02/19/23 02/21/23 History Glimepiride [Amaryl] 4 mg PO BID 02/19/23 02/21/23 History Magnesium Oxide [Mag-Ox] 800 mg PO DAILY 02/19/23 02/21/23 History cloZAPine [Clozaril] 200 mg PO HS 02/19/23 02/21/23 History Allergies Allergy/AdvReac Type Severity Reaction Status Date / Time haloperidol [From Haldol] AdvReac Muscles Verified 02/19/23 20:59 freeze up in arms and hands haloperidol lactate AdvReac Muscles Verified 02/19/23 20:59 [From Haldol] freeze up in arms and hands Physical Examination - Vital Signs Vital Signs: Vital Signs Temp Pulse Resp BP Pulse Ox 02/21/23 15:00 104 H 29 H 113/63 93 L 02/21/23 14:00 121 H 6 L 128/79 98 02/21/23 13:03 93 L 02/21/23 13:00 123 H 23 136/83 87 L 02/21/23 12:00 98.1 F 96 25 H 138/82 93 L 02/21/23 11:00 91 20 129/93 94 L 02/21/23 10:00 103 H 21 139/109 92 L 02/21/23 09:00 78 18 120/96 93 L 02/21/23 08:00 97.9 F 93 7 L 131/71 94 L 02/21/23 07:00 93 19 127/79 92 L 02/21/23 06:00 89 19 135/81 97 02/21/23 05:00 94 15 126/72 96 02/21/23 04:00 98.2 F 90 20 135/80 97 02/21/23 03:00 94 19 110/74 100 02/21/23 02:00 89 18 99/74 98 02/21/23 01:00 85 20 100/74 97 02/21/23 00:30 97.7 F 84 20 100/74 96 02/21/23 00:26 86 21 97 Intake and Output 02/21/23 02/21/23 02/21/23 06:59 14:59 22:59 Intake Total 900 700 100 Output Total 965 1025 100 Balance -65 -325 0 Intake: IV 900 700 100 Sodium Chloride 0.9% 1, 900 700 100 000 ml @ 100 mls/hr IV . Q10H [facility] Rx#:[id number] Output: Urine 965 1025 100 Other: Voiding Method Indwelling Catheter Indwelling Catheter Weight 65.6 kg Patient is a middle aged female, who appears very confused, patient is rambling, talking tangential, with very poor thought content and some loose associations. Patient is alert awake. She said it is January 1966, but then realized that 1965 is her birthday and she knows it is the year . She knows that she is in [facility] in [place] and name of the current president. Speech and language functions are normal. Patient's slurs while talking. Patient can name and repeat very well. Attention, concentration is limited and fund of knowledge is also limited. On cranial nerve examination, pupils are equal, round and reacting to light, visual calderon are full on confrontation, with no neglect on double simultaneous stimulation. Extraocular muscles are intact with no nystagmus. Face is symmetric, tongue protrudes to the midline. Palatal elevation and sensation normal, hearing and shoulder shrug normal, facial sensation normal. On muscle strength testing, there is no pronator drift and the strength is normal in arms and legs distally and proximally. Deep tendon reflexes are symmetric, hypoactive and plantars downgoing. Sensory to touch is equal with no neglect on double simultaneous stimulation. Cerebellar function showed no ataxia for uixcbn-gv-ocgy testing. No dysdiadochokinesia. No ataxia for aemi-ix-hrub testing on either side. Tone and bulk of muscles normal. Gait deferred.. On general examination, there is no carotid bruit or murmur, S1-S2 audible. Chest is clear on consultation. Abdomen is soft nontender. No organomegaly, bowel sounds present. Peripheral pulses are present. No peripheral edema. Results - Laboratory Findings CBC and BMP: 02/21/23 04:42 02/21/23 04:42 Abnormal Lab Findings: Abnormal Labs 02/20/23 02/20/23 02/21/23 23:19 23:28 04:42 Plt Count 145 L 144 L Potassium 3.2 L Glucose 133 H POC Glucose (mg/dL) Phosphorus C-Reactive Protein TSH Free T4 02/21/23 02/21/23 02/21/23 04:42 13:10 13:10 Plt Count Potassium Glucose 110 H POC Glucose (mg/dL) Phosphorus 4.7 H C-Reactive Protein 2.3 H TSH 0.185 L Free T4 2.44 H 02/21/23 16:40 Plt Count Potassium Glucose POC Glucose (mg/dL) 285 H Phosphorus C-Reactive Protein TSH Free T4 Assessment and Plan Assessment: * Altered mental status, likely due to psychiatric condition. Patient has schizoaffective disorder. * Hypothyroidism * Diabetes, not well controlled, with A1c 8.6. * COPD * Hypertension * Seizure disorder * History of B12 deficiency Plan: * Patient's mental status is probably due to psychiatric condition. * There is some report of seizure disorder. Patient currently not on any seizure medication. * We will check EEG to rule out any epileptiform activity. * Check B12, ammonia, folic acid. IM to address abnormal thyroid functions. * Psychiatry to follow. * Dr. Corbin Nguyen Will resume neurology service in the morning. Thank you for the consult.
[2023-02-22] MEDS: SODIUM CHLORIDE 0.9% 1,000 ML IV SCH ×2 (05:58→17:14)
[2023-02-22 08:03] LABS: Glucose,Whole Blood 165 mg/dL (70-110)
--- NOTE | 2023-02-22 08:03 | CA ---
Transthoracic Echo Report Name: Veronique Dukes Age: 57 Gender: F : 1965 Exam Date: 02/21/2023 15:30 Exam Location: [facility] Ht (in): 61 Wt (lb): 157 Ordering Physician: Gogo Yepez Attending/Referring Phys: Grease Worker Vidal Hernandez Procedure CPT: Indications: ams, tachy, on psych meds Cardiac Hx: Technical Quality: Fair Contrast 1: Definity Total Dose (mL): 2 Contrast 2: Total Dose (mL): MEASUREMENTS (Male / Female) Normal Values 2D ECHO RV Internal Dim ED PLAX 2.4 cm LVOT Diameter 1.8 cm Aortic Root Diameter 2.4 cm LA Systolic Diameter LX 2.6 cm 3.0 - 4.0 / 2.7 - 3.8 cm LV Diastolic Volume MOD BP 29.3 cm??? 67 - 155 / 56 - 104 cm??? LV Systolic Volume MOD BP 12.6 cm??? 22 - 58 / 19 - 49 cm??? LV Ejection Fraction MOD BP 56.9 % >= 55 % LV Cardiac Index MOD BP 977.1 cm???/min???m??? LV Diastolic Volume MOD 4C 45.7 cm??? LV Systolic Volume MOD 4C 18.7 cm??? LV Ejection Fraction MOD 4C 59.1 % LV Cardiac Index MOD 4C 1583.7 cm???/min???m??? LV Diastolic Length 4C 6.4 cm LV Systolic Length 4C 6.5 cm LV Diastolic Volume MOD 2C 18.3 cm??? LV Systolic Volume MOD 2C 7.5 cm??? LV Ejection Fraction MOD 2C 58.9 % LV Cardiac Index MOD 2C 631.6 cm???/min???m??? LV Diastolic Length 2C 6.2 cm LV Systolic Length 2C 5.7 cm LA Volume 16.7 cm??? 18 - 58 / 22 - 52 cm??? LA Volume Index 9.4 cm???/m??? 16 - 28 cm???/m??? DOPPLER AV Peak Velocity 173.2 cm/s AV Peak Gradient 12.0 mmHg AV Mean Velocity 110.1 cm/s AV Mean Gradient 5.9 mmHg AV Velocity Time Integral 29.2 cm LVOT Peak Velocity 111.5 cm/s LVOT Peak Gradient 5.0 mmHg LVOT Velocity Time Integral 18.2 cm LVOT Stroke Volume 48.4 cm??? LVOT Stroke Volume Index 28.4 ml/m??? LVOT Cardiac Index 2835.3 cm???/min???m??? AV Area Cont Eq vti 1.7 cm??? AV Area Cont Eq pk 1.7 cm??? MV Peak Velocity 133.7 cm/s MV Peak Gradient 7.2 mmHg MV Mean Velocity 66.3 cm/s MV Mean Gradient 2.3 mmHg MV Velocity Time Integral 26.9 cm Mitral E Point Velocity 86.9 cm/s Mitral A Point Velocity 125.2 cm/s Mitral E to A Ratio 0.7 MV Deceleration Time 88.3 ms MV E' Velocity 6.6 cm/s Mitral E to MV E' Ratio 13.1 TR Peak Velocity 190.3 cm/s TR Peak Gradient 14.5 mmHg Right Ventricular Systolic Press 20.6 mmHg PV Peak Velocity 115.4 cm/s PV Peak Gradient 5.3 mmHg FINDINGS Left Ventricle Normal LV size and wall thickness. Left ventricular ejection fraction is estimated at 55-60 %. Right Ventricle Normal right ventricular size. Right Atrium Normal right atrial size. Left Atrium Normal left atrial size. Mitral Valve Structurally normal mitral valve. No mitral stenosis. No mitral regurgitation. Aortic Valve Aortic valve not well visualized. No aortic valve stenosis or regurgitation. Tricuspid Valve Structurally normal tricuspid valve. Trace TR. Pulmonic Valve Pulmonic valve not well visualized. No pulmonic regurgitation. Pericardium Grossly normal. Aorta Normal size aortic root. CONCLUSIONS Left ventricular ejection fraction 55-60% No mitral regurgitation Trace tricuspid regurgitation No pericardial effusion Previewed by: Dr. Singh Jung DO (Electronically Signed) Final Date: 22 February 2023 08:02
[2023-02-22 08:14] LABS: Basophils % (A) 0 %; Eosinophils % (A) 0 %; HCT 37.4 % (34.0-46.0); HGB 11.8 gm/dL (11.4-16.0); Hypochromasia Slight; Lymphocytes # (A) 1.4 k/uL (1.0-4.8); Lymphocytes % (A) 34 %; MCH 27.9 pg (25.0-35.0); MCHC 31.5 g/dL (31.0-37.0); MCV 88.7 fL (80.0-100.0); Mean Platelet Volume 8.6; Monocytes # (A) 0.2 k/uL (0-1.0); Monocytes % (A) 6 %; Neutrophils # (A) 2.4 k/uL (1.3-7.7); Neutrophils % (A) 57 %; Platelet Count 158 k/uL (150-450); RBC 4.22 m/uL (3.80-5.40); RDW 14.5 % (11.5-15.5); WBC 4.1 k/uL (3.8-10.6)
[2023-02-22 08:31] LABS: African American GFR (CKD) 84 (>60 ml/min/1.73 sqM); Anion Gap 9 mmol/L; Blood Urea Nitrogen 12 mg/dL (7-17); Calcium 8.8 mg/dL (8.4-10.2); Carbon Dioxide 24 mmol/L (22-30); Chloride 109 mmol/L (98-107); Glucose 163 mg/dL (74-99); Non-African American GFR(CKD) 73 (>60 ml/min/1.73 sqM); Sodium 142 mmol/L (137-145)
[2023-02-22] MEDS: FAMOTIDINE 20 MG TAB PO SCH ×2 (09:13→21:37)
[2023-02-22] MEDS: TAMSULOSIN 0.4 MG CAP.ER.24H PO SCH (09:13)
[2023-02-22] MEDS: APIXABAN 5 MG TAB PO SCH ×2 (09:13→21:37)
[2023-02-22] MEDS: METOPROLOL TARTRATE 25 MG TAB PO SCH ×2 (09:13→21:37)
[2023-02-22] MEDS: INSULIN ASPART (NovoLOG) 100 UNIT/ML VIAL SQ SCH ×4 (09:13→21:50)
[2023-02-22] MEDS: MAGNESIUM OXIDE 400 MG TAB PO SCH (09:13)
[2023-02-22] MEDS: SYMBICORT 160-4.5 MCG INHALER INHALATION SCH ×2 (11:15→20:21)
[2023-02-22] MEDS: AMPICILLIN-SULBACTAM 1.5 GM in SODIUM CHLORIDE 0.9% 50 ML IVPB SCH ×2 (11:17→17:14)
[2023-02-22] MEDS: LINAGLIPTIN 5 MG TABLET PO SCH (11:19)
[2023-02-22] MEDS: GLIMEPIRIDE 4 MG TAB PO SCH ×2 (11:19→17:24)
[2023-02-22 12:17] LABS: Glucose,Whole Blood 381 mg/dL (70-110)
[2023-02-22] MEDS ORDERED: fluPHENAZine DECANOATE 25 MG/ML 5ML MDV IM ONE (12:27)
--- NOTE | 2023-02-22 14:02 | P.DS ---
Providers Date of admission: 02/20/23 22:34 Expected date of discharge: 02/22/23 Attending physician: Justa Salter Consults: 02/20/23 23:17 Consult Physician Routine Consulting Provider: Galdino Nguyen Consult Reason/Comments: Aspiration Do you want consulting provider notified?: Already Contacted 02/20/23 23:41 Consult Physician Routine Consulting Provider: Psychiatry - [facility] Psychiatry Consult Reason/Comments: icu admit Do you want consulting provider notified?: Yes, Notify in am 02/21/23 13:23 Consult Physician Routine Consulting Provider: James Alejandra Consult Reason/Comments: ams, tachycardia Do you want consulting provider notified?: Yes Consult Physician Urgent Consulting Provider: Ginna Bronson Consult Reason/Comments: ams, confused, unresponsive after clozaril Do you want consulting provider notified?: Yes Primary care physician: Gamal Stuart Hospital Course: Final diagnosis Unresponsiveness, ruled out syncope, ruled out cardiac or neurological causes Possible TIA, ruled out Schizophrenia, acute exacerbation Possible catatonia, improved Chronic obstructive pulmonary disease history Diabetes mellitus, type II, insulin-dependent, uncontrolled with hyperglycemia hypertension history History of pulmonary embolism seizure disorder History of ESBL and straight caths GI prophylaxis DVT prophylaxis Full code Discharge disposition Patient is being discharged in a stable condition with guarded prognosis to . Patient will follow-up with Dr. Stuart in the outpatient setting upon discharge. Patient is to continue with close outpatient follow-up with [facility] as scheduled. Total time taken is greater than 35 minutes. Hospital course This is a 57-year-old female who was recently admitted with schizoaffective disorder acute exacerbation and possible catatonia was at inpatient at [address] [place] [address] and experienced an episode of unresponsiveness and brought over to the medical side for further evaluation. Patient apparently received Clozaril and per sister had not missed many doses maybe one and had been somewhat altered. Patient evaluated by psychiatry along with neurology and cardiology as patient briefly was admitted to the ICU for close monitoring and mentation is improved. Neurology ordered EEG otherwise had cleared the patient for outpatient follow-up with [facility] and psychiatry. Patient currently with indwelling Taylor catheter while in the ICU as patient chronically straight caths herself outpatient. Patient's mentation is improved and has been cleared by psychiatry for discharge home. Patient to continue monitoring blood sugars before meals and at bedtime and use sliding scale along with resuming home doses of oral medication. Patient's thyroid levels including TSH were mildly low at 0.185 and free T4 mildly high at 2.44 and recommend endocrine evaluation outpatient given patient's significant medications that she is chronically on. Recommend repeat labs in the outpatient setting as well. Currently no reports of chest pain, shortness of breath, or palpitations. Patient is afebrile. No reports of nausea or vomiting and patient is tolerating diet. Patient reports feeling fine and would like to go home. Patient will be discharged home today . Guarded prognosis and high risk for readmissions given patient's significant comorbidities and psychiatric disorder. Physical exam: Gen: This is a 57 old female who is awake, alert and oriented 2, baseline, well-developed, well-nourished, appears older than stated age HEENT: Head is atraumatic, normocephalic. Pupils equal, round. Sclerae is anicteric. NECK: Supple. No JVD. No lymphadenopathy. No thyromegaly. LUNGS: Clear to auscultation. No wheezes or rhonchi. No intercostal retractions. HEART: Regular rate and rhythm. No murmur. ABDOMEN: Soft. Bowel sounds are present. No masses. No tenderness. EXTREMITIES: No pedal edema. No calf tenderness. NEUROLOGICAL: Patient is awake, alert and oriented x3. Cranial nerves 2 through 12 are grossly intact. Please refer to medication reconciliation sheet for a list of medications. The impression and plan of care has been dictated by Gogo Yepez, Nurse Practitioner as directed. Dr. Fareed MD I have performed a history and examination and MDM of this patient, discussed the same with the dictator, and agree with the dictator's assessment and plan as written ,documented as a scribe. Based on total visit time, I have performed more than 50% of the visit. Patient Condition at Discharge: Stable Plan - Discharge Summary New Discharge Prescriptions: Continue fluPHENAZine decanoate [Prolixin Decanoate] 50 mg IM Q14D Tamsulosin [Flomax] 0.4 mg PO DAILY Apixaban [Eliquis] 5 mg PO BID Atorvastatin [Lipitor] 40 mg PO HS sitaGLIPtin [Januvia] 100 mg PO DAILY Ergocalciferol (Vitamin D2) [Drisdol (50,000 Iu)] 1,250 mcg PO Q14D Metoprolol Tartrate [Lopressor] 25 mg PO BID Insulin Lispro [humaLOG Kwikpen] See Protocol SQ ACHS Famotidine 40 mg PO BID fluvoxaMINE MALEATE [Luvox] 100 mg PO HS Albuterol Inhaler [Ventolin Hfa Inhaler] 2 puff INHALATION RT-Q6H PRN PRN Reason: Shortness Of Breath Glimepiride [Amaryl] 4 mg PO BID cloZAPine [Clozaril] 200 mg PO HS Budesonide/Formoterol Fumarate [Symbicort 160-4.5 Mcg Inhaler] 2 puff INHALATION RT-BID Magnesium Oxide [Mag-Ox] 800 mg PO DAILY Discharge Medication List fluPHENAZine decanoate [Prolixin Decanoate] 50 mg IM Q14D 01/21/16 [History] Tamsulosin [Flomax] 0.4 mg PO DAILY 03/13/17 [History] Apixaban [Eliquis] 5 mg PO BID 10/24/20 [History] fluvoxaMINE MALEATE [Luvox] 100 mg PO HS 10/24/20 [History] Atorvastatin [Lipitor] 40 mg PO HS 10/19/21 [History] sitaGLIPtin [Januvia] 100 mg PO DAILY 03/19/22 [History] Albuterol Inhaler [Ventolin Hfa Inhaler] 2 puff INHALATION RT-Q6H PRN 11/02/22 [History] Ergocalciferol (Vitamin D2) [Drisdol (50,000 Iu)] 1,250 mcg PO Q14D 11/02/22 [History] Metoprolol Tartrate [Lopressor] 25 mg PO BID 11/02/22 [History] Insulin Lispro [humaLOG Kwikpen] See Protocol SQ ACHS 12/18/22 [History] Budesonide/Formoterol Fumarate [Symbicort 160-4.5 Mcg Inhaler] 2 puff INHALATION RT-BID 02/19/23 [History] Famotidine 40 mg PO BID 02/19/23 [History] Glimepiride [Amaryl] 4 mg PO BID 02/19/23 [History] Magnesium Oxide [Mag-Ox] 800 mg PO DAILY 02/19/23 [History] cloZAPine [Clozaril] 200 mg PO HS 02/19/23 [History] Follow up Appointment(s)/Referral(s): Gamal Stuart DO [Primary Care Provider] - 1-2 days [facility], [NON-STAFF] - 1 Week ([facility] will call you to arrange a visit) Activity/Diet/Wound Care/Special Instructions: Activity Limited until follow-up follow-up with primary care provider on discharge follow-up with psychiatrist outpatient Continue taking medications as prescribed Patient to receive Prolixin IM injection prior to discharge Continue straight catheterization Continue monitoring blood sugars and keep a diary of all readings for primary care follow-up Please return to the Emergency Department if symptoms worsen or any other concerns. Discharge Disposition: HOME SELF-CARE
--- NOTE | 2023-02-22 14:06 | P.PN ---
Subjective Progress Note Date: 02/22/23 This is a 57-year-old female patient, hospitalized for altered mental status. The patient is known to have schizoaffective disorder and she has been maintained on multiple medications including Clozaril and Prolixin. The patient has been living alone and she has been watched over by her sister. Apparently, the patient was taken her psychiatric medication and she could've missed a few doses. No history of any drug overdose. No 68 substance abuse. No septal alcoholism. He was drug screen was negative. She was having some delusions and she was seeing things. The sister also noted some bizarre behavior including some catatonic behavior and for that reason the patient was brought into the [facility]. Her workup included a CBC and complete metabolic profile that was essentially within normal. UA was normal. Urine drug screen was also within normal limits. CAT scan of the brain showed no acute abnormalities pH chest x- ray was within normal limits. She is afebrile at this point in time. She is on room air oxygen. She is communicating. The sister at the bedside. No nausea. No vomiting. No chest pain. No shortness of breath. No focal neurological deficit at this point in time. No headaches. She is demented on long-term and cognition without liquids as the patient has previous history of pulmonary embolism that occurred back in 2020. Since then, she has limited on antico agulants. Patient was seen by cardiology. Echocardiogram was ordered. On today's evaluation of 02/22/2023, the patient has no specific complaints. Resting comfortably in bed on room air oxygen. No nausea. No vomiting and altered mentation. No agitation. Taylor cath is in place and the patient is producing adequate amount of urine output. She remains on anticoagulation. Objective - Vital Signs Vital signs: Vital Signs Temp 98 F 02/22/23 08:00 Pulse 87 02/22/23 08:00 Resp 18 02/22/23 08:00 BP 126/84 02/22/23 08:00 Pulse Ox 94 L 02/22/23 11:18 FiO2 Intake & Output 02/21/23 02/22/23 02/22/23 18:59 06:59 18:59 Intake Total 1100 1200 118 Output Total 1500 1823 6810 Balance -228 -296 -0965 Weight 70.7 kg Intake: IV 1100 1200 Sodium Chloride 0.9% 1, 1100 1200 000 ml @ 100 mls/hr IV . Q10H ON LICENSE OF [facility] Rx#:[id number] Oral 118 Output: Urine 1500 1725 2400 Other: Voiding Method Indwelling Catheter Indwelling Catheter Indwelling Catheter - Exam Gen. appearance the patient is calm and comfortable not acute distress on room air oxygen, body mass index is 27.3 Head exam was generally normal. There was no scleral icterus or corneal arcus. Mucous membranes were moist. Neck was supple and without jugular venous distension, thyromegaly, or carotid bruits. Carotids were easily palpable bilaterally. There was no adenopathy. Lungs were clear to auscultation and percussion, and with normal diaphragmatic excursion. No wheezes or rales were noted. Cardiac exam revealed the PMI to be normally situated and sized. The rhythm was regular and no extrasystoles were noted during several minutes of auscultation. The first and second heart sounds were normal and physiologic splitting of the second heart sound was noted. There were no murmurs, rubs, clicks, or gallops. Abdominal exam revealed normal bowel sounds. The abdomen was soft, non-tender, and without masses, organomegaly, or appreciable enlargement of the abdominal aorta. Examination of the extremities revealed easily palpable radial, femoral and pedal pulses. There was no cyanosis, clubbing or edema. Examination of the skin revealed no evidence of significant rashes, suspicious appearing nevi or other concerning lesions. Neurologically is no focal neurological deficit and the patient is moving all 4 extremities without any limitation. No issues with swallow. Psychiatric evaluation was done by psychiatry. - Labs CBC & Chem 7: 02/22/23 07:35 02/22/23 07:35 Labs: Abnormal Lab Results - Last 24 Hours (Table) 02/21/23 02/21/23 02/22/23 Range/Units 13:10 16:40 07:35 Chloride (98-107) mmol/L Glucose (74-99) mg/dL POC Glucose (mg/dL) 285 H (70-110) mg/dL Hemoglobin A1c 7.9 H (<=6.0) % TSH 0.185 L (0.465-4.680) mIU/L Free T4 2.44 H (0.78-2.19) ng/dL 02/22/23 02/22/23 02/22/23 Range/Units 07:35 08:01 12:16 Chloride 109 H (98-107) mmol/L Glucose 163 H (74-99) mg/dL POC Glucose (mg/dL) 165 H 381 H (70-110) mg/dL Hemoglobin A1c (<=6.0) % TSH (0.465-4.680) mIU/L Free T4 (0.78-2.19) ng/dL Assessment and Plan Plan: Schizoaffective disorder/somatoform disorder, improved since yesterday and the patient is not exhibiting any illusions or delusions or any bizarre continue to make symptoms at this point in time. Altered mental status was likely on a psychiatric basis Remote history of pulmonary embolism maintain on anticoagulation with Eliquis History of frequent UTIs with previous gram-negative urinary tract infection and the patient has a neurogenic bladder and undergoes self catheterization at home. The patient does not have any signs or symptoms of UTI and the UA was negative. Hypertension Hyperlipidemia Diabetes mellitus Previous history of smoking Osteoarthritis Seizure disorder. History of colonic polyps History of implantation of the bladder stimulator Plan No active pulmonary or cardiac issue at this point in time Medical condition is stable for now Coverage with broad-spectrum antibiotics pending cultures, currently on IV Unasyn We will consult with psychiatry regarding his psychiatric medications Continue Clozaril 200 mg at bedtime for the time being Continue diabetic medications, I will leave the management of the blood sugar control up to the medical group Beta blockers with metoprolol 25 mg by mouth twice a day IV fluids Echocardiogram was noted and the patient is a preserved LV function CAT scan of the brain is negative We'll complete the workup and transfer the patient to a psychiatric unit at the later stage. Pulmonary critical care services will sign off the case
[2023-02-22 16:40] LABS: Glucose,Whole Blood 55 mg/dL (70-110)
[2023-02-22 17:10] LABS: Glucose,Whole Blood 153 mg/dL (70-110)
--- NOTE | 2023-02-22 19:24 | P.PN ---
Subjective Progress Note Date: 02/22/23 I am seeing the patient during this admission for the first time. Please refer to Dr. Bronson's note for further details. It seems the patient has history of seizures order it's reported, B12 deficiency, and schizoaffective disorder. Patient denied that she has history of seizures but per Dr. Argueta's note seems that the patient has history of seizures order. She presented with altered mental status and I [place] Was Due To Psychiatric condition and it appears her mentation has improved. Objective - Vital Signs Vital signs: Vital Signs Temp 97.6 F 02/22/23 14:00 Pulse 77 02/22/23 14:00 Resp 19 02/22/23 14:00 BP 131/71 02/22/23 14:00 Pulse Ox 99 02/22/23 14:00 FiO2 Intake & Output 02/22/23 02/22/23 02/23/23 06:59 18:59 06:59 Intake Total 1200 236 Output Total 1725 2400 Balance -525 -2164 Weight 70.7 kg Intake: IV 1200 Sodium Chloride 0.9% 1, 1200 000 ml @ 100 mls/hr IV . Q10H JON[facility] Rx#:[id number] Oral 236 Output: Urine 1725 2400 Other: Voiding Method Indwelling Catheter Indwelling Catheter # Voids 1 - Exam GENERAL: The patient is lying in bed and is not in acute distress. NEUROLOGICAL: Higher mental function: The patient is awake, alert, oriented to self, place and time. Patient is following commands. No aphasia and no neglect. Cranial nerves: The pupils are round, equal and reactive to light. Visual calderon are full to confrontation throughout. Extraocular movement is intact no nystagmus is noted. Facial sensation is normal to touch throughout. The facial strength is normal throughout. Tongue is midline and moved [id number] without any difficulty. No dysarthria is noted. Shoulder shrug is normal bilaterally. Motor: The strength is 5 over 5 throughout. Normal tone and bulk. Cerebellum: Normal finger to nose bilaterally. Sensation: Sensation is normal to touch throughout. - Labs CBC & Chem 7: 02/22/23 07:35 02/22/23 07:35 Labs: Abnormal Lab Results - Last 24 Hours (Table) 02/22/23 02/22/23 02/22/23 Range/Units 07:35 07:35 08:01 Chloride 109 H (98-107) mmol/L Glucose 163 H (74-99) mg/dL POC Glucose (mg/dL) 165 H (70-110) mg/dL Hemoglobin A1c 7.9 H (<=6.0) % 02/22/23 02/22/23 02/22/23 Range/Units 12:16 16:39 17:06 Chloride (98-107) mmol/L Glucose (74-99) mg/dL POC Glucose (mg/dL) 381 H 55 L 153 H (70-110) mg/dL Hemoglobin A1c (<=6.0) % Assessment and Plan Assessment: * Altered mental status, likely due to hyperthyroidism and possible psychiatric condition (Patient has schizoaffective disorder)----mentation has improved. * Hyperthyroidism on recent lab * Diabetes, with A1c 7.9 * COPD * Hypertension * Seizure disorder * History of B12 deficiency Plan: Routine EEG ordered by Dr. Audie Oh reviewed it and the preliminary report is there is questionable C4 reversal but no clear epileptiform discha rges. No seizure and the background is normal Notified the primary team [employer] about the EEG reported and notified them that the can consider starting her on antiepileptic drugs such as Lamictal or Depakote which helps with the mood as well as psychiatric condition versus repeating an EEG as an outpatient with a prolonged EEG. They stated that they'll hold off especially since the patient has hyperthyroidism which could be contributing to her confusion as well as her psychiatric condition. Vitamin B12 is 346, folate level is 11.6, ammonia is less than 9 CT the head is negative for acute changes. Recommend the patient to follow-up with a neurologist within 3-4 weeks as an outpatient. We'll defer the rest of the medical measure the primary team and other specialists Otherwise there is no further neurological workup. Please notify neurology team if any further concerns. Time with Patient: Less than 30
[2023-02-22 21:36] LABS: Glucose,Whole Blood 183 mg/dL (70-110)
[2023-02-22] MEDS: cloZAPine 100 MG TAB PO SCH (21:36)
[2023-02-22] MEDS: ATORVASTATIN 40 MG TAB PO SCH (21:37)
[2023-02-22 23:38] VITALS: RESP 16
[2023-02-23] MEDS: AMPICILLIN-SULBACTAM 1.5 GM in SODIUM CHLORIDE 0.9% 50 ML IVPB SCH ×2 (00:44→08:27)
--- NOTE | 2023-02-23 02:01 | EEG ---
ELECTROENCEPHALOGRAM REPORT CLINICAL HISTORY: This is a 57-year-old woman with altered mental status. The video EEG is obtained to evaluate for seizure epileptiform activity. RELEVANT MEDICATIONS: The patient is not on any antiepileptic drugs. EEG TYPE: A routine 21-channel EEG with video using the 10/20 electrode placement system. DESCRIPTION: Wakefulness is only obtained. During awake state, the posterior-dominant rhythm consists of [id number] voltage of 8.5 hertz activity that is well modulated and well sustained. There is no physiological stage 2 sleep architecture. There is no focal slowing. Interictal and ictal, there is questionable phase reversal over the C4, again it is questionable. Otherwise, there is no clear epileptiform discharge, or seizure on the EEG. ACTIVATION PROCEDURE: Photic stimulation did not evoke a posterior driving response. There is no abnormality during the photic stimulation. Hyperventilation is not performed. CLINICAL INTERPRETATION: There is a questionable phase reversal over the C4 lead. Otherwise, the background is normal. There is no focal slowing, no clear epileptiform discharge, or seizure on the EEG. I would recommend a sleep-deprived EEG or prolonged EEG and that can be considered as an outpatient. Clinical correlation is recommended. UPDATE: On second review there is also questionable phase reversal over T5. No seizures. MMODL / IJN: [id number] / MTDD
[2023-02-23 06:30] LABS: Glucose,Whole Blood 180 mg/dL (70-110)
[2023-02-23] MEDS: SODIUM CHLORIDE 0.9% 1,000 ML IV SCH (06:30)
[2023-02-23] MEDS: GLIMEPIRIDE 4 MG TAB PO SCH (06:30)
[2023-02-23] MEDS: INSULIN ASPART (NovoLOG) 100 UNIT/ML VIAL SQ SCH (06:58)
[2023-02-23] MEDS: SYMBICORT 160-4.5 MCG INHALER INHALATION SCH (07:38)
[2023-02-23 07:42] VITALS: BP 152/85; PULSE 84; TEMP 97.6
[2023-02-23] MEDS: TAMSULOSIN 0.4 MG CAP.ER.24H PO SCH (08:26)
[2023-02-23] MEDS: FAMOTIDINE 20 MG TAB PO SCH (08:26)
[2023-02-23] MEDS: METOPROLOL TARTRATE 25 MG TAB PO SCH (08:27)
[2023-02-23] MEDS: APIXABAN 5 MG TAB PO SCH (08:27)
[2023-02-23] MEDS: MAGNESIUM OXIDE 400 MG TAB PO SCH (08:27)
[2023-02-23] MEDS: LINAGLIPTIN 5 MG TABLET PO SCH (08:27)
--- NOTE | 2023-02-26 12:51 | P.DS ---
Providers Date of admission: 02/20/23 22:34 Expected date of discharge: 02/23/23 Attending physician: Justa Salter Consults: 02/20/23 23:17 Consult Physician Routine Consulting Provider: Galdino Nguyen Consult Reason/Comments: Aspiration Do you want consulting provider notified?: Already Contacted 02/20/23 23:41 Consult Physician Routine Consulting Provider: Psychiatry - [facility] Consult Reason/Comments: icu admit Do you want consulting provider notified?: Yes, Notify in am 02/21/23 13:23 Consult Physician Routine Consulting Provider: James Alejandra Consult Reason/Comments: ams, tachycardia Do you want consulting provider notified?: Yes Consult Physician Urgent Consulting Provider: Ginna Bronson Consult Reason/Comments: ams, confused, unresponsive after clozaril Do you want consulting provider notified?: Yes Primary care physician: Gamal Stuart Hospital Course: Final diagnosis Unresponsiveness, ruled out syncope, ruled out cardiac or neurological causes Possible TIA, ruled out Schizophrenia, acute exacerbation Possible catatonia, improved Chronic obstructive pulmonary disease history Diabetes mellitus, type II, insulin-dependent, uncontrolled with hyperglycemia hypertension history History of pulmonary embolism seizure disorder History of ESBL and straight caths GI prophylaxis DVT prophylaxis Full code Discharge disposition Patient is being discharged in a stable condition with guarded prognosis to . Patient will follow-up with Dr. Stuart in the outpatient setting upon discharge. Patient is to continue with close outpatient follow-up with [facility] as scheduled. Total time taken is greater than 35 minutes. Hospital course This is a 57-year-old female who was recently admitted with schizoaffective disorder acute exacerbation and possible catatonia was at inpatient at [address] [place] [address] and experienced an episode of unresponsiveness and brought over to the medical side for further evaluation. Patient apparently received Clozaril and per sister had not missed many doses maybe one and had been somewhat altered. Patient evaluated by psychiatry along with neurology and cardiology as patient briefly was admitted to the ICU for close monitoring and mentation is improved. Neurology ordered EEG otherwise had cleared the patient for outpatient follow-up with [facility] and psychiatry. Patient currently with indwelling Taylor catheter while in the ICU as patient chronically straight caths herself outpatient. Patient's mentation is improved and has been cleared by psychiatry for discharge home. Patient to continue monitoring blood sugars before meals and at bedtime and use sliding scale along with resuming home doses of oral medication. Patient's thyroid levels including TSH were mildly low at 0.185 and free T4 mildly high at 2.44 and recommend endocrine evaluation outpatient given patient's significant medications that she is chronically on. Recommend repeat labs in the outpatient setting as well. Currently no reports of chest pain, shortness of breath, or palpitations. Patient is afebrile. No reports of nausea or vomiting and patient is tolerating diet. Patient reports feeling fine and would like to go home. Patient will be discharged home today . Guarded prognosis and high risk for readmissions given patient's significant comorbidities and psychiatric disorder. 02/23/2023 Patient is back to baseline and agreeable from sister [place] patient was evaluated by physical therapy and is independent has been up and walking. Patient tolerating diet and maintain on medications. Patient was evaluated by psychiatry recommending outpatient follow-up as well as following up with primary care provider. Patient is scheduled to return home on discharge with home care being arranged. Patient with uncontrolled blood sugars as well as abnormal thyroid levels recommend close outpatient follow up with endocrine and resources were provided. Physical exam: Gen: This is a 57 old female who is awake, alert and oriented 2, baseline, well-developed, well-nourished, appears older than stated age HEENT: Head is atraumatic, normocephalic. Pupils equal, round. Sclerae is anicteric. NECK: Supple. No JVD. No lymphadenopathy. No thyromegaly. LUNGS: Clear to auscultation. No wheezes or rhonchi. No intercostal retractions. HEART: Regular rate and rhythm. No murmur. ABDOMEN: Soft. Bowel sounds are present. No masses. No tenderness. EXTREMITIES: No pedal edema. No calf tenderness. NEUROLOGICAL: Patient is awake, alert and oriented x3. Cranial nerves 2 through 12 are grossly intact. Please refer to medication reconciliation sheet for a list of medications. The impression and plan of care has been dictated by Gogo Yepez, Nurse Practitioner as directed. Dr. Bernardo MD I have performed a history and examination and MDM of this patient, discussed the same with the dictator, and agree with the dictator's assessment and plan as written ,documented as a scribe. Based on total visit time, I have performed more than 50% of the visit. Patient Condition at Discharge: Stable Plan - Discharge Summary New Discharge Prescriptions: Continue fluPHENAZine decanoate [Prolixin Decanoate] 50 mg IM Q14D Tamsulosin [Flomax] 0.4 mg PO DAILY Apixaban [Eliquis] 5 mg PO BID Atorvastatin [Lipitor] 40 mg PO HS sitaGLIPtin [Januvia] 100 mg PO DAILY Ergocalciferol (Vitamin D2) [Drisdol (50,000 Iu)] 1,250 mcg PO Q14D Metoprolol Tartrate [Lopressor] 25 mg PO BID Insulin Lispro [humaLOG Kwikpen] See Protocol SQ ACHS Famotidine 40 mg PO BID fluvoxaMINE MALEATE [Luvox] 100 mg PO HS Albuterol Inhaler [Ventolin Hfa Inhaler] 2 puff INHALATION RT-Q6H PRN PRN Reason: Shortness Of Breath Glimepiride [Amaryl] 4 mg PO BID cloZAPine [Clozaril] 200 mg PO HS Budesonide/Formoterol Fumarate [Symbicort 160-4.5 Mcg Inhaler] 2 puff INHALATION RT-BID Magnesium Oxide [Mag-Ox] 800 mg PO DAILY Discharge Medication List fluPHENAZine decanoate [Prolixin Decanoate] 50 mg IM Q14D 01/21/16 [History] Tamsulosin [Flomax] 0.4 mg PO DAILY 03/13/17 [History] Apixaban [Eliquis] 5 mg PO BID 10/24/20 [History] fluvoxaMINE MALEATE [Luvox] 100 mg PO HS 10/24/20 [History] Atorvastatin [Lipitor] 40 mg PO HS 10/19/21 [History] sitaGLIPtin [Januvia] 100 mg PO DAILY 03/19/22 [History] Albuterol Inhaler [Ventolin Hfa Inhaler] 2 puff INHALATION RT-Q6H PRN 11/02/22 [History] Ergocalciferol (Vitamin D2) [Drisdol (50,000 Iu)] 1,250 mcg PO Q14D 11/02/22 [History] Metoprolol Tartrate [Lopressor] 25 mg PO BID 11/02/22 [History] Insulin Lispro [humaLOG Kwikpen] See Protocol SQ ACHS 12/18/22 [History] Budesonide/Formoterol Fumarate [Symbicort 160-4.5 Mcg Inhaler] 2 puff INHALATION RT-BID 02/19/23 [History] Famotidine 40 mg PO BID 02/19/23 [History] Glimepiride [Amaryl] 4 mg PO BID 02/19/23 [History] Magnesium Oxide [Mag-Ox] 800 mg PO DAILY 02/19/23 [History] cloZAPine [Clozaril] 200 mg PO HS 02/19/23 [History] Follow up Appointment(s)/Referral(s): Fidencio Reyes MD [REFERRING] - 1 Week [facility], [NON-STAFF] - 1 Week ([facility] will call you to arrange a visit) Gamal Stuart DO [Primary Care Provider] - 1-2 days Ginger Marlow MD [Medical Doctor] - 1 Week Activity/Diet/Wound Care/Special Instructions: Activity Limited until follow-up follow-up with primary care provider on discharge follow-up with psychiatrist outpatient Follow-up with neurologist outpatient for prolonged EEG Continue taking medications as prescribed Patient to receive Prolixin IM injection prior to discharge Continue straight catheterization Continue monitoring blood sugars and keep a diary of all readings for primary care follow-up Follow-up with endocrine outpatient regarding mildly low TSH and mildly elevated T4 and discuss initiating medications given patient's significant history of psychiatric medications along with uncontrolled diabetes Please return to the Emergency Department if symptoms worsen or any other concerns. Discharge Disposition: HOME WITH HOME HEALTH SERVICES
== END 2023-02-23 13:35 | disposition home health service (06) | DRG 885 ==
LOC: EC 10:29 → 2SICU 02-20 22:34 → 6NMEDSUR 02-22 08:03
PROVIDERS: ADMIT Internal Medicine; ATTEND Internal Medicine
DX: F20.2 Catatonic schizophrenia (principal); G93.41 Metabolic encephalopathy; E87.1 Hypo-osmolality and hyponatremia; E11.65 Type 2 diabetes mellitus with hyperglycemia; J44.0 Chronic obstructive pulmonary disease with (acute) lower respiratory infection; F21 Schizotypal disorder; I10 Essential (primary) hypertension; J44.9 Chronic obstructive pulmonary disease, unspecified; K21.9 Gastro-esophageal reflux disease without esophagitis; M19.90 Unspecified osteoarthritis, unspecified site; E11.9 Type 2 diabetes mellitus without complications; F31.9 Bipolar disorder, unspecified; E78.5 Hyperlipidemia, unspecified; R00.0 Tachycardia, unspecified; I07.1 Rheumatic tricuspid insufficiency; F45.9 Somatoform disorder, unspecified; G40.909 Epilepsy, unspecified, not intractable, without status epilepticus; E05.90 Thyrotoxicosis, unspecified without thyrotoxic crisis or storm; E53.8 Deficiency of other specified B group vitamins; F03.90 Unspecified dementia, unspecified severity, without behavioral disturbance, psychotic disturbance, mood disturbance, and anxiety; Z87.01 Personal history of pneumonia (recurrent); Z79.51 Long term (current) use of inhaled steroids; Z86.711 Personal history of pulmonary embolism; Z86.19 Personal history of other infectious and parasitic diseases; Z88.8 Allergy status to other drugs, medicaments and biological substances; Z79.84 Long term (current) use of oral hypoglycemic drugs; Z79.01 Long term (current) use of anticoagulants; Z79.4 Long term (current) use of insulin; Z79.899 Other long term (current) drug therapy; Z87.19 Personal history of other diseases of the digestive system; E03.9 Hypothyroidism, unspecified
CPT/HCPCS: 51702; 70450; 71045; 80048; 80053; 80306; 81003; 82140; 82607; 82746; 83036; 83735; 84100; 84439; 84443; 85025; 85379; 85652; 86140; 93306; 94640; 94760; 95816; 99283

== ENCOUNTER 2023-02-19 14:44 | Inpatient (IN) | payer MEDICARE, MEDICAID ==
[2023-02-19] MEDS ORDERED: SODIUM CHLORIDE 0.9% 1,000 ML IV ONE (14:54)
--- NOTE | 2023-02-19 15:06 | ED ---
Altered Mental Status HPI <Jigar Poe - Last Filed: 02/19/23 19:52> - General Source: patient, family, EMS, RN notes reviewed Mode of arrival: EMS Limitations: altered mental status - History of Present Illness MD Complaint: altered mental status <Leti Hudson - Last Filed: 02/20/23 16:27> - General Chief Complaint: Alcohol Stated Complaint: ETOH Time Seen by Provider: 02/19/23 14:47 - History of Present Illness Initial Comments: This is a 57-year-old female who presents to the emergency department for altered mental status. Per EMS, the patient's sister called for a wellness check, as she had not been answering the phone. When EMS arrived, they found multiple open alcohol bottles and the patient was less responsive and not answering many questions. Patient denies consuming any alcohol. Per nursing staff, there was also concern that the patient may have had marijuana edibles and taken large amounts of other medication, however it is unclear what those other medications would've been. Patient knows her name and that she is at the hospital, however she does not know which hospital, the month, or the president. When her sister called, she states that she was last known well sometime between Monday and Monday of last week. It is currently Monday. They advised that she has been altered in the past related to urinary tract infections or low magnesium, however if there is no medical cause for her symptoms, this may be psychiatric in nature. She has missed some doses of her Clozaril is also due for her Prolixin. Her daughter states that December through February are also very difficult times for the patient and this could also be from depression. Her daughter believes that she may be in a catatonic state. She has been in a catatonic state from schizoaffective disorder and paranoid delusions before, however it has been quite a long time since she has been hospitalized for this issue. (Leti Hudson) - Related Data Home Medications Medication Instructions Recorded Confirmed fluPHENAZine decanoate [Prolixin 50 mg IM Q14D 01/21/16 02/19/23 Decanoate] Tamsulosin [Flomax] 0.4 mg PO DAILY 03/13/17 02/19/23 Apixaban [Eliquis] 5 mg PO BID 10/24/20 02/19/23 fluvoxaMINE MALEATE [Luvox] 100 mg PO HS 10/24/20 02/19/23 Atorvastatin [Lipitor] 40 mg PO HS 10/19/21 02/19/23 sitaGLIPtin [Januvia] 100 mg PO DAILY 03/19/22 02/19/23 Albuterol Inhaler [Ventolin Hfa 2 puff INHALATION RT-Q6H PRN 11/02/22 02/19/23 Inhaler] Ergocalciferol (Vitamin D2) 1,250 mcg PO Q14D 11/02/22 02/19/23 [Drisdol (50,000 Iu)] Metoprolol Tartrate [Lopressor] 25 mg PO BID 11/02/22 02/19/23 Insulin Lispro [humaLOG Kwikpen] See Protocol SQ ACHS 12/18/22 02/19/23 Budesonide/Formoterol Fumarate 2 puff INHALATION RT-BID 02/19/23 02/19/23 [Symbicort 160-4.5 Mcg Inhaler] Famotidine 40 mg PO BID 02/19/23 02/19/23 Glimepiride [Amaryl] 4 mg PO BID 02/19/23 02/19/23 Magnesium Oxide [Mag-Ox] 800 mg PO DAILY 02/19/23 02/19/23 cloZAPine [Clozaril] 200 mg PO HS 02/19/23 02/19/23 Allergies Allergy/AdvReac Type Severity Reaction Status Date / Time haloperidol [From Haldol] AdvReac Muscles Verified 02/19/23 20:59 freeze up in arms and hands haloperidol lactate AdvReac Muscles Verified 02/19/23 20:59 [From Haldol] freeze up in arms and hands Review of Systems ROS Other: All systems not noted in ROS Statement are negative. <Jigar Poe - Last Filed: 02/19/23 19:52> ROS Other: All systems not noted in ROS Statement are negative. <Leti Hudson - Last Filed: 02/20/23 16:27> ROS Statement: Those systems with pertinent positive or pertinent negative responses have been documented in the HPI. Past Medical History Past Medical History: COPD, Diabetes Mellitus, GERD/Reflux, Hypertension, Osteoarthritis (OA), Pulmonary Embolus (PE), Seizure Disorder Additional Past Medical History / Comment(s): Hx of colon polyps, neuorgenic bladder, anemia, self caths at home, thyroid nodule, UTI with hospital admission september 2021- klebsiella treated with ceftin History of Any Multi-Drug Resistant Organisms: ESBL Date of last positivie culture/infection: 12/01/22 MDRO Source:: Urine Past Surgical History: Back Surgery, Breast Surgery, Ear Surgery Additional Past Surgical History / Comment(s): hunter breast reduction, breast biopsy, bladder stimulator implant, skin grafts to ear Past Anesthesia/Blood Transfusion Reactions: No Reported Reaction Past Psychological History: Bipolar, Depression, Schizoaffective Disorder Smoking Status: Current some day smoker Past Alcohol Use History: None Reported Past Drug Use History: None Reported - Past Family History Father Family Medical History: Cancer Additional Family Medical History / Comment(s): lung Sister(s) Family Medical History: Cancer Additional Family Medical History / Comment(s): ovarian <Leti Hudson - Last Filed: 02/20/23 16:27> General Exam Limitations: altered mental status General appearance: alert, in no apparent distress Head exam: Present: atraumatic, normocephalic, normal inspection Eye exam: Present: other (Pupils are pinpoint and reactive) Respiratory exam: Present: normal lung sounds bilaterally. Absent: respiratory distress, wheezes, rales, rhonchi, stridor Cardiovascular Exam: Present: regular rate, normal rhythm, normal heart sounds. Absent: systolic murmur, diastolic murmur, rubs, gallop, clicks Neurological exam: Present: alert, other (oriented x1) Expanded Focused psych exam: Present: catatonic Skin exam: Present: warm, intact, normal color, diaphoretic. Absent: rash <Leti Hudson - Last Filed: 02/20/23 16:27> Course Vital Signs 02/19/23 02/19/23 02/19/23 14:46 16:15 17:30 Temperature 99.4 F Pulse Rate 98 106 H 101 H Respiratory 18 24 27 H Rate Blood Pressure 112/78 103/73 113/80 O2 Sat by Pulse 99 95 93 L Oximetry 02/19/23 02/19/23 02/20/23 18:05 22:53 00:48 Temperature 98.6 F 98.8 F Pulse Rate 96 94 106 H Respiratory 26 H 18 18 Rate Blood Pressure 118/86 123/85 116/80 O2 Sat by Pulse 93 L 93 L 93 L Oximetry Medical Decision Making - Lab Data Result diagrams: 02/19/23 14:57 02/19/23 14:57 <Jigar Poe - Last Filed: 02/19/23 19:52> - Lab Data Result diagrams: 02/19/23 14:57 02/19/23 14:57 - Radiology Data Radiology results: report reviewed, image reviewed <Leti Hudson - Last Filed: 02/20/23 16:27> - Medical Decision Making 57 female to the emergency department for psychiatric evaluation patient will be admitted for psychiatric evaluation and treatment (Jigar Poe) This is a 57-year-old female who presents to the emergency department for altered mental status. Was pt. sent in by a medical professional or institution? @ -No Did you speak to anyone other than the patient for history? @ -EMS and her sister provided all of the history. Did you review nursing and triage notes? @ -Yes, and I agree, it is accurate with regards to the patient's symptoms. Were old charts reviewed? @ -No Differential Diagnosis? @ -Differential Altered Mental Status: Hypoglycemia, DKA, hypercapnia, ETOH, overdose, CO poisoning, trauma, myxedema coma, HTN encephalopathy, infection, encephalitis, psychosis, intercranial hemorrhage, hepatic encephalopathy, meningitis, CVA, this is not meant to be an all-inclusive list EKG interpreted by me (3pts min.)? @ -EKG interpreted by me demonstrating the following: Sinus tachycardia. Ventricular rate 101 beats per minute, SD interval 146 ms, QRS duration 90 ms, QTC 409 ms. X-rays interpreted by me (1pt min.)? @ -Not obtained CT interpreted by me (1pt min.)? @ -CT scan of the brain obtained. My interpretation identifies no evidence of an acute intracranial hemorrhage. U/S interpreted by me (1pt. min.)? @ -Not obtained What testing was considered but not performed? (CT, X-rays, U/S, labs)? Why? @ -None What meds were considered but not given? Why? @ -None Did you discuss the management of the patient with other professionals? @ -Yes, EPS, who advised that the patient is in a catatonic state, and with her hx of paranoia and schizoaffective disorder, as well as catatonia in the past, she meets inpatient psychiatric admission criteria. Did you reconcile home meds? @ -No Was smoking cessation discussed for >3mins.? @ -No Was critical care preformed (if so, how long)? @ -No Were there social determinants of health that impacted care today? How? (Homelessness, low income, unemployed, alcoholism, drug addiction, transportation, low edu. Level, literacy, decrease access to med. care, [facility], rehab)? @ -No Was there de-escalation of care discussed even if they declined? (Discuss DNR or withdrawal of care, Hospice)? @ -No What co-morbidities impacted this encounter? (DM, HTN, Smoking, COPD, CAD, Ca ncer, CVA, Hep., AIDS, mental health diagnosis, sleep apnea, morbid obesity)? @ -DM, HTN, seizure disorder Was patient admitted / discharged? @ -Admitted. Lab work obtained and found to be unremarkable. Alcohol, acetaminophen, and salicylate levels were negative. Urinalysis negative for signs of infection and urine drug screen was negative as well. Given her altered mental status and lack of explanation for her symptoms, CT scan of the brain was obtained. This revealed no acute process. We were able to reach her sister/legal guardian, she advised that this presentation has been medical most recently, and is usually related to low magnesium or a urinary tract infection. We advised that her magnesium was within normal limits and her urinalysis was also normal. She advised that this may be psychiatric in nature and the patient may be in a catatonic state. This has happened to her in the past, however it has been many years since she has been hospitalized for psychiatric reasons. She is concerned that she may have been missing doses of her Clozaril and she is also due for Prolixin. EPS subsequently evaluated the patient and spoke with her sister as well. He advised that the patient is most likely in a catatonic state, and given that she has a history of this along with diagnoses of schizoaffective disorder and paranoid delusions, she does meet criteria for inpatient psychiatric management. Patient admitted to 3[facility] at this facility for further care. Undiagnosed new problem with uncertain prognosis? @ -None Drug Therapy requiring intensive monitoring for toxicity (Heparin, Nitro, Insulin, Cardizem)? @ -None Were any procedures done? @ -None Diagnosis/symptom? @ -Catatonia Acute, or Chronic, or Acute on Chronic? @ -Acute Uncomplicated (without systemic symptoms) or Complicated (systemic symptoms)? @ -Complicated Side effects of treatment? @ -None Exacerbation, Progression, or Severe Exacerbation] @ -Not applicable Poses a threat to life or bodily function? @ -Yes This case was discussed in detail with the attending ED physician, Dr. Boles. Presentation, findings, and treatment plan discussed in detail as well. (Leti Hudson) - Lab Data Lab Results 02/19/23 02/19/23 02/19/23 Range/Units 14:57 14:57 14:57 WBC 8.4 (3.8-10.6) k/uL RBC 4.72 (3.80-5.40) m/uL Hgb 13.4 (11.4-16.0) gm/dL Hct 40.7 (34.0-46.0) % MCV 86.3 (80.0-100.0) fL MCH 28.3 (25.0-35.0) pg MCHC 32.8 (31.0-37.0) g/dL RDW 14.5 (11.5-15.5) % Plt Count 179 (150-450) k/uL MPV 8.5 Neutrophils % 64 % Lymphocytes % 27 % Monocytes % 6 % Eosinophils % 0 % Basophils % 0 % Neutrophils # 5.4 (1.3-7.7) k/uL Lymphocytes # 2.2 (1.0-4.8) k/uL Monocytes # 0.5 (0-1.0) k/uL Eosinophils # 0.0 (0-0.7) k/uL Basophils # 0.0 (0-0.2) k/uL PT 10.7 (10.0-12.5) sec INR 1.0 (<1.2) APTT 24.3 (22.0-30.0) sec Sodium (137-145) mmol/L Potassium (3.5-5.1) mmol/L Chloride (98-107) mmol/L Carbon Dioxide (22-30) mmol/L Anion Gap mmol/L BUN (7-17) mg/dL Creatinine (0.52-1.04) mg/dL Est GFR (CKD-EPI)AfAm (>60 ml/min/1.73 sqM) Est GFR (CKD-EPI)NonAf (>60 ml/min/1.73 sqM) Glucose (74-99) mg/dL Calcium (8.4-10.2) mg/dL Magnesium (1.6-2.3) mg/dL Total Bilirubin (0.2-1.3) mg/dL AST (14-36) U/L ALT (4-34) U/L Alkaline Phosphatase (38-126) U/L Ammonia (<30) umol/L Total Protein (6.3-8.2) g/dL Albumin (3.5-5.0) g/dL Urine Color Urine Appearance (Clear) Urine pH (5.0-8.0) Ur Specific [place] (1.001-1.035) Urine Protein (Negative) Urine Glucose (UA) (Negative) Urine Ketones (Negative) Urine Blood (Negative) Urine Nitrite (Negative) Urine Bilirubin (Negative) Urine Urobilinogen (<2.0) mg/dL Ur Leukocyte Esterase (Negative) Salicylates mg/dL Urine Opiates Screen Not Detected (NotDetected) Ur Oxycodone Screen Not Detected (NotDetected) Urine Methadone Screen Not Detected (NotDetected) Acetaminophen ug/mL Ur Barbiturates Screen Not Detected (NotDetected) U Tricyclic Antidepress Not Detected (NotDetected) Ur Phencyclidine Scrn Not Detected (NotDetected) Ur Amphetamines Screen Not Detected (NotDetected) U Methamphetamines Scrn Not Detected (NotDetected) U Benzodiazepines Scrn Not Detected (NotDetected) Urine Cocaine Screen Not Detected (NotDetected) U Marijuana (THC) Screen Not Detected (NotDetected) Ur Drug Screen Comment SEE COMMENT Serum Alcohol mg/dL SARS-CoV-2 (PCR) (Not Detectd) 02/19/23 02/19/23 02/19/23 Range/Units 14:57 14:57 14:57 WBC (3.8-10.6) k/uL RBC (3.80-5.40) m/uL Hgb (11.4-16.0) gm/dL Hct (34.0-46.0) % MCV (80.0-100.0) fL MCH (25.0-35.0) pg MCHC (31.0-37.0) g/dL RDW (11.5-15.5) % Plt Count (150-450) k/uL MPV Neutrophils % % Lymphocytes % % Monocytes % % Eosinophils % % Basophils % % Neutrophils # (1.3-7.7) k/uL Lymphocytes # (1.0-4.8) k/uL Monocytes # (0-1.0) k/uL Eosinophils # (0-0.7) k/uL Basophils # (0-0.2) k/uL PT (10.0-12.5) sec INR (<1.2) APTT (22.0-30.0) sec Sodium 136 L (137-145) mmol/L Potassium 4.0 (3.5-5.1) mmol/L Chloride 93 L (98-107) mmol/L Carbon Dioxide 26 (22-30) mmol/L Anion Gap 17 mmol/L BUN 25 H (7-17) mg/dL Creatinine 1.12 H (0.52-1.04) mg/dL Est GFR (CKD-EPI)AfAm 62 (>60 ml/min/1.73 sqM) Est GFR (CKD-EPI)NonAf 54 (>60 ml/min/1.73 sqM) Glucose 166 H (74-99) mg/dL Calcium 9.8 (8.4-10.2) mg/dL Magnesium 2.2 (1.6-2.3) mg/dL Total Bilirubin 0.6 (0.2-1.3) mg/dL AST 28 (14-36) U/L ALT 20 (4-34) U/L Alkaline Phosphatase 76 (38-126) U/L Ammonia <9 (<30) umol/L Total Protein 7.3 (6.3-8.2) g/dL Albumin 4.5 (3.5-5.0) g/dL Urine Color Light Yellow Urine Appearance Clear (Clear) Urine pH 6.0 (5.0-8.0) Ur Specific [place] 1.012 (1.001-1.035) Urine Protein Negative (Negative) Urine Glucose (UA) Negative (Negative) Urine Ketones Negative (Negative) Urine Blood Negative (Negative) Urine Nitrite Negative (Negative) Urine Bilirubin Negative (Negative) Urine Urobilinogen <2.0 (<2.0) mg/dL Ur Leukocyte Esterase Negative (Negative) Salicylates <1.0 mg/dL Urine Opiates Screen (NotDetected) Ur Oxycodone Screen (NotDetected) Urine Methadone Screen (NotDetected) Acetaminophen <10.0 ug/mL Ur Barbiturates Screen (NotDetected) U Tricyclic Antidepress (NotDetected) Ur Phencyclidine Scrn (NotDetected) Ur Amphetamines Screen (NotDetected) U Methamphetamines Scrn (NotDetected) U Benzodiazepines Scrn (NotDetected) Urine Cocaine Screen (NotDetected) U Marijuana (THC) Screen (NotDetected) Ur Drug Screen Comment Serum Alcohol <10 mg/dL SARS-CoV-2 (PCR) (Not Detectd) 02/19/23 Range/Units 19:52 WBC (3.8-10.6) k/uL RBC (3.80-5.40) m/uL Hgb (11.4-16.0) gm/dL Hct (34.0-46.0) % MCV (80.0-100.0) fL MCH (25.0-35.0) pg MCHC (31.0-37.0) g/dL RDW (11.5-15.5) % Plt Count (150-450) k/uL MPV Neutrophils % % Lymphocytes % % Monocytes % % Eosinophils % % Basophils % % Neutrophils # (1.3-7.7) k/uL Lymphocytes # (1.0-4.8) k/uL Monocytes # (0-1.0) k/uL Eosinophils # (0-0.7) k/uL Basophils # (0-0.2) k/uL PT (10.0-12.5) sec INR (<1.2) APTT (22.0-30.0) sec Sodium (137-145) mmol/L Potassium (3.5-5.1) mmol/L Chloride (98-107) mmol/L Carbon Dioxide (22-30) mmol/L Anion Gap mmol/L BUN (7-17) mg/dL Creatinine (0.52-1.04) mg/dL Est GFR (CKD-EPI)AfAm (>60 ml/min/1.73 sqM) Est GFR (CKD-EPI)NonAf (>60 ml/min/1.73 sqM) Glucose (74-99) mg/dL Calcium (8.4-10.2) mg/dL Magnesium (1.6-2.3) mg/dL Total Bilirubin (0.2-1.3) mg/dL AST (14-36) U/L ALT (4-34) U/L Alkaline Phosphatase (38-126) U/L Ammonia (<30) umol/L Total Protein (6.3-8.2) g/dL Albumin (3.5-5.0) g/dL Urine Color Urine Appearance (Clear) Urine pH (5.0-8.0) Ur Specific [place] (1.001-1.035) Urine Protein (Negative) Urine Glucose (UA) (Negative) Urine Ketones (Negative) Urine Blood (Negative) Urine Nitrite (Negative) Urine Bilirubin (Negative) Urine Urobilinogen (<2.0) mg/dL Ur Leukocyte Esterase (Negative) Salicylates mg/dL Urine Opiates Screen (NotDetected) Ur Oxycodone Screen (NotDetected) Urine Methadone Screen (NotDetected) Acetaminophen ug/mL Ur Barbiturates Screen (NotDetected) U Tricyclic Antidepress (NotDetected) Ur Phencyclidine Scrn (NotDetected) Ur Amphetamines Screen (NotDetected) U Methamphetamines Scrn (NotDetected) U Benzodiazepines Scrn (NotDetected) Urine Cocaine Screen (NotDetected) U Marijuana (THC) Screen (NotDetected) Ur Drug Screen Comment Serum Alcohol mg/dL SARS-CoV-2 (PCR) Not Detected (Not Detectd) Disposition Is patient prescribed a controlled substance at d/c from ED?: No <Jigar Poe - Last Filed: 02/19/23 19:52> <Leti Hudson - Last Filed: 02/20/23 16:27> Clinical Impression: Catatonia associated with another mental disorder, Psychosis Disposition: TRANSFER TO PSYCH HOSP/UNIT Condition: Fair
[2023-02-19 15:48] LABS: Basophils % (A) 0 %; Eosinophils % (A) 0 %; HCT 40.7 % (34.0-46.0); HGB 13.4 gm/dL (11.4-16.0); Lymphocytes # (A) 2.2 k/uL (1.0-4.8); Lymphocytes % (A) 27 %; MCH 28.3 pg (25.0-35.0); MCHC 32.8 g/dL (31.0-37.0); MCV 86.3 fL (80.0-100.0); Mean Platelet Volume 8.5; Monocytes # (A) 0.5 k/uL (0-1.0); Monocytes % (A) 6 %; Neutrophils # (A) 5.4 k/uL (1.3-7.7); Neutrophils % (A) 64 %; Platelet Count 179 k/uL (150-450); RBC 4.72 m/uL (3.80-5.40); RDW 14.5 % (11.5-15.5); WBC 8.4 k/uL (3.8-10.6)
[2023-02-19 15:50] LABS: Appearance,Urine Clear (Clear); Bilirubin,Urine Negative (Negative); Blood,Urine Negative (Negative); Color,Urine Light Yellow; Glucose,Urine (UA) Negative (Negative); Ketones,Urine Negative (Negative); Leukocyte Esterase,Urine Negative (Negative); Nitrite,Urine Negative (Negative); Protein,Urine Negative (Negative); Specific Gravity,Urine 1.012 (1.001-1.035); Urobilinogen,Urine <2.0 mg/dL (<2.0)
[2023-02-19 15:57] LABS: Prothrombin Time 10.7 sec (10.0-12.5)
[2023-02-19 15:58] LABS: Partial Thromboplastin Time 24.3 sec (22.0-30.0)
[2023-02-19 16:02] LABS: ALT 20 U/L (4-34); AST 28 U/L (14-36); Acetaminophen <10.0 ug/mL; African American GFR (CKD) 62 (>60 ml/min/1.73 sqM); Albumin 4.5 g/dL (3.5-5.0); Alcohol <10 mg/dL; Alkaline Phosphatase 76 U/L (38-126); Anion Gap 17 mmol/L; Blood Urea Nitrogen 25 mg/dL (7-17); Calcium 9.8 mg/dL (8.4-10.2); Carbon Dioxide 26 mmol/L (22-30); Chloride 93 mmol/L (98-107); Glucose 166 mg/dL (74-99); Magnesium 2.2 mg/dL (1.6-2.3); Non-African American GFR(CKD) 54 (>60 ml/min/1.73 sqM); Salicylate <1.0 mg/dL; Sodium 136 mmol/L (137-145); Total Bilirubin 0.6 mg/dL (0.2-1.3); Total Protein 7.3 g/dL (6.3-8.2)
[2023-02-19 16:06] LABS: Amphetamine Screen,Urine Not Detected (NotDetected); Benzodiazepines Screen,Urine Not Detected (NotDetected); Cocaine Screen,Urine Not Detected (NotDetected); Methadone Screen, Urine Not Detected (NotDetected); Opiate Screen,Urine Not Detected (NotDetected); Phencyclidine Screen,Urine Not Detected (NotDetected); Tricyclic Antidepressant,Urine Not Detected (NotDetected); Urn Cannabinoid Scrn Not Detected (NotDetected)
[2023-02-19 16:07] LABS: Barbiturate Screen,Urine Not Detected (NotDetected); Oxycodone Screen, Urine Not Detected (NotDetected)
--- NOTE | 2023-02-19 16:53 | CT ---
EXAMINATION TYPE: CT brain wo con DATE OF EXAM: 02/19/2023 COMPARISON: 11/30/2022 HISTORY: 57-year-old female confusion, ETOH, AMS TECHNIQUE: Examination was done in axial plane without intravenous contrast. Coronal and sagittal r econstructions performed. CT DLP: 1172.4 mGycm Automated exposure control for dose reduction was used. FINDINGS: There is no evidence of acute intracranial hemorrhage, acute ischemic changes, mass, mass-effect, or extra-axial fluid collection. There is no effacement of cerebral sulci or basal subarachnoid cister ns. There is no hydrocephalus. There is no midline shift. Davis-white matter distinction is preserv ed. Mild patchy white matter hypodensities in both cerebral hemispheres. Mild mucosal thickening right et hmoid air cells. Mastoid air cells well pneumatized. Leftward nasal septal deviation. Orbits and glob es are intact. IMPRESSION: Mild patchy burden of chronic small vessel ischemic disease. No acute intracranial abnormality seen.
[2023-02-20] MEDS ORDERED: ACETAMINOPHEN TAB 325 MG TAB PO PRN (01:48)
[2023-02-20] MEDS ORDERED: MAGNESIUM HYDROXIDE 2,400 MG/30 ML CUP PO PRN (01:48)
[2023-02-20] MEDS ORDERED: MAG HYDROX/AL HYDROX/SIMETH 30 ML CUP PO PRN (01:48)
[2023-02-20] MEDS ORDERED: LORazepam 1 MG TAB PO PRN (01:48)
--- NOTE | 2023-02-20 11:14 | P.HP ---
Psychiatric H&P - . H&P Date: 02/20/23 History & Physical: Allergies Allergy/AdvReac Type Severity Reaction Status Date / Time haloperidol [From Haldol] AdvReac Muscles Verified 02/19/23 20:59 freeze up in arms and hands haloperidol lactate AdvReac Muscles Verified 02/19/23 20:59 [From Haldol] freeze up in arms and hands Vital Signs Temp 99.0 F 02/20/23 10:38 Pulse 93 02/20/23 10:38 Resp 16 02/20/23 10:38 BP 116/80 02/20/23 00:48 Pulse Ox 98 02/20/23 10:38 FiO2 Intake & Output 02/19/23 02/20/23 02/20/23 18:59 06:59 18:59 Weight 68.039 kg 65.5 kg Laboratory Last Values WBC 8.4 k/uL (3.8-10.6) 02/19/23 14:57 RBC 4.72 m/uL (3.80-5.40) 02/19/23 14:57 Hgb 13.4 gm/dL (11.4-16.0) 02/19/23 14:57 Hct 40.7 % (34.0-46.0) 02/19/23 14:57 MCV 86.3 fL (80.0-100.0) 02/19/23 14:57 MCH 28.3 pg (25.0-35.0) 02/19/23 14:57 MCHC 32.8 g/dL (31.0-37.0) 02/19/23 14:57 RDW 14.5 % (11.5-15.5) 02/19/23 14:57 Plt Count 179 k/uL (150-450) 02/19/23 14:57 MPV 8.5 02/19/23 14:57 Neutrophils % 64 % 02/19/23 14:57 Lymphocytes % 27 % 02/19/23 14:57 Monocytes % 6 % 02/19/23 14:57 Eosinophils % 0 % 02/19/23 14:57 Basophils % 0 % 02/19/23 14:57 Neutrophils # 5.4 k/uL (1.3-7.7) 02/19/23 14:57 Lymphocytes # 2.2 k/uL (1.0-4.8) 02/19/23 14:57 Monocytes # 0.5 k/uL (0-1.0) 02/19/23 14:57 Eosinophils # 0.0 k/uL (0-0.7) 02/19/23 14:57 Basophils # 0.0 k/uL (0-0.2) 02/19/23 14:57 PT 10.7 sec (10.0-12.5) 02/19/23 14:57 INR 1.0 (<1.2) 02/19/23 14:57 APTT 24.3 sec (22.0-30.0) 02/19/23 14:57 Sodium 136 mmol/L (137-145) L 02/19/23 14:57 Potassium 4.0 mmol/L (3.5-5.1) 02/19/23 14:57 Chloride 93 mmol/L (98-107) L 02/19/23 14:57 Carbon Dioxide 26 mmol/L (22-30) 02/19/23 14:57 Anion Gap 17 mmol/L 02/19/23 14:57 BUN 25 mg/dL (7-17) H 02/19/23 14:57 Creatinine 1.12 mg/dL (0.52-1.04) H 02/19/23 14:57 Est GFR (CKD-EPI)AfAm 62 (>60 ml/min/1.73 sqM) 02/19/23 14:57 Est GFR (CKD-EPI)NonAf 54 (>60 ml/min/1.73 sqM) 02/19/23 14:57 Glucose 166 mg/dL (74-99) H 02/19/23 14:57 Calcium 9.8 mg/dL (8.4-10.2) 02/19/23 14:57 Magnesium 2.2 mg/dL (1.6-2.3) 02/19/23 14:57 Total Bilirubin 0.6 mg/dL (0.2-1.3) 02/19/23 14:57 AST 28 U/L (14-36) 02/19/23 14:57 ALT 20 U/L (4-34) 02/19/23 14:57 Alkaline Phosphatase 76 U/L (38-126) 02/19/23 14:57 Ammonia <9 umol/L (<30) 02/19/23 14:57 Total Protein 7.3 g/dL (6.3-8.2) 02/19/23 14:57 Albumin 4.5 g/dL (3.5-5.0) 02/19/23 14:57 Urine Color Light Yellow 02/19/23 14:57 Urine Appearance Clear (Clear) 02/19/23 14:57 Urine pH 6.0 (5.0-8.0) 02/19/23 14:57 Ur Specific [place] 1.012 (1.001-1.035) 02/19/23 14:57 Urine Protein Negative (Negative) 02/19/23 14:57 Urine Glucose (UA) Negative (Negative) 02/19/23 14:57 Urine Ketones Negative (Negative) 02/19/23 14:57 Urine Blood Negative (Negative) 02/19/23 14:57 Urine Nitrite Negative (Negative) 02/19/23 14:57 Urine Bilirubin Negative (Negative) 02/19/23 14:57 Urine Urobilinogen <2.0 mg/dL (<2.0) 02/19/23 14:57 Ur Leukocyte Esterase Negative (Negative) 02/19/23 14:57 Salicylates <1.0 mg/dL 02/19/23 14:57 Urine Opiates Screen Not Detected (NotDetected) 02/19/23 14:57 Ur Oxycodone Screen Not Detected (NotDetected) 02/19/23 14:57 Urine Methadone Screen Not Detected (NotDetected) 02/19/23 14:57 Acetaminophen <10.0 ug/mL 02/19/23 14:57 Ur Barbiturates Screen Not Detected (NotDetected) 02/19/23 14:57 U Tricyclic Antidepress Not Detected (NotDetected) 02/19/23 14:57 Ur Phencyclidine Scrn Not Detected (NotDetected) 02/19/23 14:57 Ur Amphetamines Screen Not Detected (NotDetected) 02/19/23 14:57 U Methamphetamines Scrn Not Detected (NotDetected) 02/19/23 14:57 U Benzodiazepines Scrn Not Detected (NotDetected) 02/19/23 14:57 Urine Cocaine Screen Not Detected (NotDetected) 02/19/23 14:57 U Marijuana (THC) Screen Not Detected (NotDetected) 02/19/23 14:57 Ur Drug Screen Comment SEE COMMENT 02/19/23 14:57 Serum Alcohol <10 mg/dL 02/19/23 14:57 SARS-CoV-2 (PCR) Not Detected (Not Detectd) 02/19/23 19:52 02/20/23 10:50 This is a psychiatric assessment on this 57-year-old female who was brought to the emergency Department for altered mental status Patient is a poor historian and is unable to give any details She continues to stare at this physician and exhibited some strange social behaviors where she comes extremely close to the face and continues to stare Further information is obtained from the chart According to the ER report the patient's sister called for wellness check as she had not been answering the phone In the evening as her out Multiple (Alcohol Bottles and Patient Was Less Responsive and Was Not Answering Questions Appropriately Patient Denies Consuming Any Alcohol As per the Nursing Staff There Is Also Previous Concern That the Patient May Have Had Marijuana Edibles Although He Drug Screen Was Negative The sister also reports that the patient has a history of UTI The patient also is on Clozaril 200 mg a day Patient also gets Prolixin Decanoate 50 mg IM Her last shot was on 01/20/23 and the sister is reported that she is due for her next shot Patient also has a history of catatonic episodes As I was dictating this note was also contacted by the nursing staff that the patient continues to show bizarre behavior where she is wandering on the unit and wandering into different patient's rooms There also is a concern about fall precautions and patient reported that she did fell in the shower although there is no vital signs change or any bruising The staff is providing supervision with vitals check every hour for the next 4 hours F is also noticed some excessive drooling Past history personal social history No specific details available at the present time and no collateral information is available except for the chart review Further details of a collected as we attempt to contact patient's sister also MENTAL STATUS EXAM: The patient was seen on the unit while she was walking down the hallway An attempt was made to bring the patient to the room but says he seemed to be just standing in the same spot and staring . General Appearance: Patient mildly overweight, appears to be stated age is alert, Patient is dressed in hospital gown Behavior: Patient initiates some conversation but then seem to fade away Patient continues to stare and then at one point came extremely close to this press writer's face about inch away from my nose and continues to stare Speech: Patient's speech impoverished Mood/Affect: Flat Suicidality/Homicidality: Patient unable to acknowledge or denied any suicidal or homicidal ideations Perceptions: Exhibits paucity of thoughts and unable to assess Though content/process: Paucity of thoughts Memory and concentration: Alert Judgment and insight: Impaired an impaired Impression: Schizophrenia with acute decompensation History of schizoaffective disorder PLAN: -Patient is admitted under voluntary status to MHU for stabilization of psychiatric symptoms and safety.t. -Medications : Patient is due for her long-acting Prolixin shot 50 mg although with her catatonic behavior will monitor closely prefer we reinitiated the shot We'll restart the patient on clozapine 200 mg daily Patient also is exhibiting significant drooling and we'll start her Benadryl 50 mg every 4 hours to minimize any further anticholinergic effects with the clozapine being severely anticholinergic -Patient was informed of the risks, benefits and side effects of the medication and patient verbally consented to taking the medications. -Internal Medicine consult to perform medical evaluation and physical. -NRT - nicotine patch -SW on board for discharge planning. Yann Glynn M.D.
[2023-02-20 12:45] LABS: Glucose,Whole Blood 171 mg/dL (70-110)
[2023-02-20] MEDS ORDERED: ALBUTEROL INHALER 60 PUFF/8 GM INHALER (MHU) INHALATION PRN (12:49)
[2023-02-20] MEDS ORDERED: diphenhydrAMINE 50 MG CAP PO SCH (13:00)
[2023-02-20] MEDS ORDERED: APIXABAN 5 MG TAB PO SCH ×2 (13:00→21:00)
[2023-02-20] MEDS ORDERED: ERGOCALCIFEROL 1,250 MCG (50,000 IU) CAPSULE PO SCH (13:00)
[2023-02-20] MEDS ORDERED: GLIMEPIRIDE 4 MG TAB PO SCH ×2 (13:00→17:30)
[2023-02-20] MEDS ORDERED: TAMSULOSIN 0.4 MG CAP.ER.24H PO SCH (13:00)
[2023-02-20] MEDS ORDERED: METOPROLOL TARTRATE 25 MG TAB PO SCH ×2 (13:00→21:00)
[2023-02-20] MEDS ORDERED: FAMOTIDINE 20 MG TAB PO SCH (13:00)
[2023-02-20] MEDS ORDERED: DEXTROSE 50% SYRINGE 50 ML IVP PRN ×2 (13:27)
[2023-02-20] MEDS ORDERED: MAGNESIUM OXIDE 400 MG TAB PO SCH (13:30)
[2023-02-20] MEDS ORDERED: LINAGLIPTIN 5 MG TABLET PO SCH (14:00)
[2023-02-20 14:03] VITALS: RESP 18
[2023-02-20] MEDS ORDERED: diphenhydrAMINE 50 MG CAP PO PRN (15:40)
[2023-02-20] MEDS ORDERED: ALBUTEROL HFA INHALER INHALATION PRN (15:40)
[2023-02-20] MEDS: INSULIN ASPART (NovoLOG) 100 UNIT/ML VIAL SQ SCH ×2 (18:04→20:00)
[2023-02-20 18:07] LABS: Glucose,Whole Blood 113 mg/dL (70-110)
[2023-02-20 19:25] VITALS: TEMP 97
[2023-02-20] MEDS ORDERED: SYMBICORT 160-4.5 MCG INHALER INHALATION SCH ×2 (20:00)
--- NOTE | 2023-02-20 20:08 | CONS ---
CONSULTATION REASON FOR CONSULTATION: Advice regarding multiple medical issues including diabetes mellitus and other medical issues, requested by Psychiatry. HISTORY OF PRESENT ILLNESS: This is a 57-year-old woman with a past medical history of multiple medical problems including diabetes mellitus, admitted for schizoaffective disorder and schizophrenia. The patient was catatonic. The patient is drooling and has some difficulty walking. The patient still has some falls at this time. Currently after Benadryl, the patient is much improved according to her. There is no history of any fever, rigors, or chills. PAST MEDICAL HISTORY: Reviewed include diabetes mellitus, COPD. Rest of the history and rest of the chart is also reviewed. HOME MEDICATIONS: Reviewed include Janumet. Doses and rest of medications noted. ALLERGIES: Haldol. FAMILY HISTORY: Ovarian cancer. SOCIAL HISTORY: Smoking. REVIEW OF SYSTEMS: Fourteen-point review of systems negative except as mentioned earlier. PHYSICAL EXAMINATION: VITAL SIGNS: Pulse is 106, blood pressure 116/80, respirations 18. HEENT: Conjunctivae normal. NECK: No JVD. CARDIOVASCULAR: S1, S2 muffled. RESPIRATIONS: Breath sounds diminished at the bases. No rhonchi. No crackles. ABDOMEN: Soft, nontender. LEGS: No edema. NERVOUS SYSTEM: No focal deficits. Tone is mildly increased, otherwise moves all 4 limbs. The patient is slightly unsteady on gait. Cranial nerves 2 through 12 grossly intact. SKIN: No ulcers. JOINTS: No active deforming arthropathy. LABORATORY DATA: Reviewed. Creatinine is 1.12. UA is unremarkable. ASSESSMENT: 1. Schizophrenia acute exacerbation. 2. Possible catatonia. 3. Chronic obstructive pulmonary disease. 4. Diabetes mellitus, type 2. 5. Hypertension. 6. History of pulmonary embolism. 7. History of seizure disorder. 8. Extended-spectrum beta-lactamases Klebsiella. RECOMMENDATIONS AND DISCUSSION: This is a 57-year-old woman, who presented with multiple complex medical issues. At this time, I recommend to continue the current medications, continue symptomatic treatment. Recommend to continue Benadryl p.r.n. and resume the home medication. Monitor blood sugars closely. Accu-Cheks before meals and at bedtime. See orders for further details. DVT prophylaxis. We will follow the patient closely with you and the patient may be asked to follow up with primary physician after discharge. If the patient is not improving, we will order further testing. MMODL / IJN: [id number] /
[2023-02-20 20:09] LABS: Glucose,Whole Blood 173 mg/dL (70-110)
[2023-02-20] MEDS ORDERED: cloZAPine 100 MG TAB PO SCH (21:00)
[2023-02-20] MEDS ORDERED: ATORVASTATIN 40 MG TAB PO SCH ×2 (21:00)
[2023-02-20 22:04] LABS: Glucose,Whole Blood 172 mg/dL (70-110)
[2023-02-20 22:56] LABS: Glucose,Whole Blood 137 mg/dL (70-110)
[2023-02-20 23:32] VITALS: BP 120/72; PULSE 96
[2023-02-21] MEDS ORDERED: TAMSULOSIN 0.4 MG CAP.ER.24H PO SCH (07:30)
[2023-02-21] MEDS ORDERED: FAMOTIDINE 20 MG TAB PO SCH (09:00)
[2023-02-21] MEDS ORDERED: LINAGLIPTIN 5 MG TABLET PO SCH (09:00)
[2023-02-22 08:28] LABS: Clozapine (Clozaril) <25 ng/mL (200-700); Norclozapine <25 ng/mL (200-700)
== END 2023-02-20 22:38 | DRG 885 ==
LOC: EC 14:44 → 3MHU 22:30
PROVIDERS: ADMIT Psychiatry & Neurology Psychiatry; ATTEND Psychiatry & Neurology Psychiatry
DX: F25.9 Schizoaffective disorder, unspecified (principal); F06.1 Catatonic disorder due to known physiological condition; G40.909 Epilepsy, unspecified, not intractable, without status epilepticus; E11.9 Type 2 diabetes mellitus without complications; J44.9 Chronic obstructive pulmonary disease, unspecified; I10 Essential (primary) hypertension; F17.210 Nicotine dependence, cigarettes, uncomplicated; T42.4X6A Underdosing of benzodiazepines, initial encounter; R26.2 Difficulty in walking, not elsewhere classified; W18.2XXA Fall in (into) shower or empty bathtub, initial encounter; Y92.002 Bathroom of unspecified non-institutional (private) residence as the place of occurrence of the external cause; Z96.0 Presence of urogenital implants; Z79.4 Long term (current) use of insulin; Z11.52 Encounter for screening for COVID-19; Z88.8 Allergy status to other drugs, medicaments and biological substances; Z91.148 Patient's other noncompliance with medication regimen for other reason; Z79.84 Long term (current) use of oral hypoglycemic drugs; Z79.01 Long term (current) use of anticoagulants; Z79.899 Other long term (current) drug therapy; Z79.51 Long term (current) use of inhaled steroids; Z86.711 Personal history of pulmonary embolism; Z87.19 Personal history of other diseases of the digestive system; Z86.19 Personal history of other infectious and parasitic diseases
CPT/HCPCS: 36415; 70450; 80053; 80143; 80159; 80179; 80306; 80320; 81003; 82075; 82140; 83735; 85025; 85610; 85730; 87635; 93005; 96360; 99285

== ENCOUNTER → 2023-03-21 | Outpatient (CLI) | payer MEDICARE, OTHER ==
--- NOTE | 2023-03-21 13:51 | EEG ---
ELECTROENCEPHALOGRAM REPORT: (Prolonged EEG 1 hour) PREAMBLE: This is a 57-year-old female who was recently admitted to the hospital and then discharged for altered mental status. The patient has questionable abnormal EEG previously, therefore this study is performed. EEG FINDINGS: This is a prolonged EEG performed for 1 hour. The recording start time is 11:24 a.m. on 03/21/2023, and recording end time is 12:28 p.m. on 03/21/2023. Condition of electrodes remained satisfactory throughout the study. The recording starts and continues with presence of well-developed, well- regulated moderate voltage activity in 8-9 hertz alpha. Background is posterior dominant and reactive to eye opening and closing. Photic driving response was not clearly seen. There is intermittent dysrhythmic theta activity seen predominantly in the left temporal region seen intermittently throughout the study. No definitive focal or generalized epileptiform activity was seen. Different stages of sleep were not clearly seen. EKG channel showed no obvious arrhythmia. Hyperventilation was not done. IMPRESSION: This is an abnormal EEG due to intermittent focal slowing with dysrhythmic theta activity in the left temporal region, suggestive of focal cortical neuronal dysfunction. No definitive epileptiform activity was seen in this study. No electrographic seizure was recorded. Clinical correlation is recommended. MMODL / IJN: [id number] / MTDD
== END ==
LOC: NEUROMAIN 10:44
PROVIDERS: ATTEND Student in an Organized Health Care Education/Training Program
DX: R41.82 Altered mental status, unspecified (principal); F17.200 Nicotine dependence, unspecified, uncomplicated; Z88.8 Allergy status to other drugs, medicaments and biological substances
CPT/HCPCS: 95813

== ENCOUNTER 2023-04-18 12:41 | Inpatient (IN) | payer MEDICARE, OTHER ==
--- NOTE | 2023-04-18 12:56 | ED ---
General Adult HPI - General Chief complaint: Altered Mental Status Stated complaint: AMS Time Seen by Provider: 04/18/23 12:51 Source: EMS Mode of arrival: EMS Limitations: altered mental status - History of Present Illness Initial comments: Dictation was produced using [employer] dictation software. please excuse any grammatical, word or spelling errors. Chief Complaint: 57-year-old female presents to the ER for altered mental status History of Present Illness: Patient is a 57-year-old female presents emergency department for altered mental status. Patient has history of COPD, diabetes seizure disorder. Patient was last seen normal on Monday night when she was with t family out at dinner. She lives at home by herself. Family member went to check on her today and she was found to be altered. According to patient's sister she was not at baseline. Is unclear what patient's baseline is. EMS reports that patient was found at home laying down and foul-smelling urine. Patient complains of urinary symptoms. Denies any other complaints. Patient is a poor historian The ROS documented in this emergency department record has been reviewed and confirmed by me. Those systems with pertinent positive or negative responses have been documented in the HPI. All other systems are other negative and/or noncontributory. - Related Data Home Medications Medication Instructions Recorded Confirmed fluPHENAZine decanoate [Prolixin 50 mg IM Q14D 01/21/16 02/21/23 Decanoate] Tamsulosin [Flomax] 0.4 mg PO DAILY 03/13/17 02/21/23 Apixaban [Eliquis] 5 mg PO BID 10/24/20 02/21/23 fluvoxaMINE MALEATE [Luvox] 100 mg PO HS 10/24/20 02/21/23 Atorvastatin [Lipitor] 40 mg PO HS 10/19/21 02/21/23 sitaGLIPtin [Januvia] 100 mg PO DAILY 03/19/22 02/21/23 Albuterol Inhaler [Ventolin Hfa 2 puff INHALATION RT-Q6H PRN 11/02/22 02/21/23 Inhaler] Ergocalciferol (Vitamin D2) 1,250 mcg PO Q14D 11/02/22 02/21/23 [Drisdol (50,000 Iu)] Metoprolol Tartrate [Lopressor] 25 mg PO BID 11/02/22 02/21/23 Insulin Lispro [humaLOG Kwikpen] See Protocol SQ ACHS 12/18/22 02/21/23 Budesonide/Formoterol Fumarate 2 puff INHALATION RT-BID 02/19/23 02/21/23 [Symbicort 160-4.5 Mcg Inhaler] Famotidine 40 mg PO BID 02/19/23 02/21/23 Glimepiride [Amaryl] 4 mg PO BID 02/19/23 02/21/23 Magnesium Oxide [Mag-Ox] 800 mg PO DAILY 02/19/23 02/21/23 cloZAPine [Clozaril] 200 mg PO HS 02/19/23 02/21/23 Allergies Allergy/AdvReac Type Severity Reaction Status Date / Time haloperidol [From Haldol] AdvReac Muscles Verified 02/19/23 20:59 freeze up in arms and hands haloperidol lactate AdvReac Muscles Verified 02/19/23 20:59 [From Haldol] freeze up in arms and hands Review of Systems ROS Statement: Those systems with pertinent positive or pertinent negative responses have been documented in the HPI. ROS Other: All systems not noted in ROS Statement are negative. Past Medical History Past Medical History: COPD, Diabetes Mellitus, GERD/Reflux, Hypertension, Osteoarthritis (OA), Pulmonary Embolus (PE), Seizure Disorder Additional Past Medical History / Comment(s): Hx of colon polyps, neuorgenic bladder, anemia, self caths at home, thyroid nodule, UTI with hospital admission september 2021- klebsiella treated with ceftin History of Any Multi-Drug Resistant Organisms: ESBL Date of last positivie culture/infection: 12/01/22 MDRO Source:: Urine Past Surgical History: Back Surgery, Breast Surgery, Ear Surgery Additional Past Surgical History / Comment(s): hunter breast reduction, breast biopsy, bladder stimulator implant, skin grafts to ear Past Anesthesia/Blood Transfusion Reactions: No Reported Reaction Past Psychological History: Bipolar, Depression, Schizoaffective Disorder Smoking Status: Current some day smoker Past Alcohol Use History: None Reported Past Drug Use History: None Reported - Past Family History Father Family Medical History: Cancer Additional Family Medical History / Comment(s): lung Sister(s) Family Medical History: Cancer Additional Family Medical History / Comment(s): ovarian General Exam - General Exam Comments Initial Comments: PHYSICAL EXAM: General Impression: Alert and oriented x3, not in acute distress, masked facies Max demeanor HEENT: Normocephalic atraumatic, extra-ocular movements intact, pupils equal and reactive to light bilaterally, mucous membranes moist, pinpoint pupils Cardiovascular: Heart regular rate and rhythm Chest: Able to complete full sentences, no retractions, no tachypnea Abdomen: abdomen soft, non-tender, non-distended, no organomegaly Musculoskeletal: Pulses present and equal in all extremities, no peripheral edema Motor: no focal deficits noted Neurological: CN II-XII grossly intact, no focal motor or sensory deficits noted Skin: Intact with no visualized rashes Psych: Normal affect and mood Limitations: altered mental status Course Vital Signs 04/18/23 12:43 Temperature 99.0 F Pulse Rate 125 H Respiratory 20 Rate Blood Pressure 128/98 O2 Sat by Pulse 94 L Oximetry EKG Findings - EKG Comments: EKG Findings:: My EKG interpretation: Ventricular rate 123, sinus tachycardia, OR interval 129, QRS 107, QTc 408. No OR prolongation, no QTC prolongation, no ST or T-wave changes noted. . Overall, this EKG is unremarkable Medical Decision Making - Medical Decision Making Was pt. sent in by a medical professional or institution (, PA, PRODUCT SAFETY LEAD, urgent care, hospital, or group home...) When possible be specific @ -No Did you speak to anyone other than the patient for history (EMS, parent, family, police, friend...)? What history was obtained from this source @ -No Did you review nursing and triage notes (agree or disagree)? Why? @ -I reviewed and agree with nursing and triage notes Were old charts reviewed (outside hosp., previous admission, EMS record, old EKG, old radiological studies, urgent care reports/EKG's, group home records)? Report findings @ -Previous previous urine microbiology results were reviewed showing patient has history of ESBL microbiology urinalysis shows ESBL Differential Diagnosis (chest pain, altered mental status, abdominal pain women, abdominal pain men, vaginal bleeding, musculoskeletal, weakness, fever, dyspnea, syncope, headache, dizziness, GI bleed, back pain, seizure, CVA, palpatations, mental health)? @ -Differential Altered Mental Status: Hypoglycemia, DKA, hypercapnia, ETOH, overdose, CO poisoning, trauma, myxedema coma, HTN encephalopathy, infection, encephalitis, psychosis, intercranial hemorrhage, hepatic encephalopathy, meningitis, CVA, this is not meant to be an all-inclusive list EKG interpreted by me (3pts min.). @ -See above X-rays interpreted by me (1pt min.). @ -Chest x-ray shows no acute processes CT interpreted by me (1pt min.). @ -CT scan of the brain shows no acute processes U/S interpreted by me (1pt. min.). @ -None done What testing was considered but not performed or refused? (CT, X-rays, U/S, labs)? Why? @ -None What meds were considered but not given or refused? Why? @ -None Did you discuss the management of the patient with other professionals (professionals i.e. , PA, PRODUCT SAFETY LEAD, lab, RT, psych nurse, social insurance specialist, lime boiler, teacher, student officer, case hardener)? Give summary @ -Case discussed with hospitalist for admission Was smoking cessation discussed for >3mins.? @ -No Was critical care preformed (if so, how long)? @ -No Were there social determinants of health that impacted care today? How? (Homelessness, low income, unemployed, alcoholism, drug addiction, transportation, low edu. Level, literacy, decrease access to med. care, [place] [facility], rehab)? @ -No Was there de-escalation of care discussed even if they declined (Discuss DNR or withdrawal of care, Hospice)? DNR status @ -No What co-morbidities impacted this encounter? (DM, HTN, Smoking, COPD, CAD, Cancer, CVA, ARF, Chemo, Hep., AIDS, mental health diagnosis, sleep apnea, morbid obesity)? @ -None Was patient admitted / discharged? Hospital course, mention meds given and route, prescriptions, significant lab abnormalities, going to OR and other pertinent info. @ -57-year-old female presents to the emergency department for acute altered mental status. Patient was last known normal 3 days ago. Vital signs stable. Patient has strange affect however she has known neurologic deficits. Vital signs shows tachycardia but she does not have any hypotension. Laboratory evaluation obtained. Hyponatremic 149. Mild acidosis. No lactic acidosis. Urinalysis shows urinary tract infection. There is suspicion of a recurrence of ESBL. Patient started on IV antibiotics will be admitted with consultation to infectious disease. Undiagnosed new problem with uncertain prognosis? @ -No Drug Therapy requiring intensive monitoring for toxicity (Heparin, Nitro, Insulin, Cardizem)? @ -No Were any procedures done? @ -No Diagnosis/symptom? Acute, or Chronic, or Acute on Chronic? Uncomplicated (without systemic symptoms) or Complicated (systemic symptoms)? @ -UTI with mental status changes, history of ESBL Side effects of treatment? @ -No Exacerbation, Progression, or Severe Exacerbation? @ -No Poses a threat to life or bodily function? How? (Chest pain, [place], [place], pneumonia, PE, COPD, DKA, ARF, appy, cholecystitis, CVA, Diverticulitis, Homicidal, Suicidal, threat to staff... and all critical care pts) @ -yes - Lab Data Result diagrams: 04/18/23 13:32 04/18/23 13:32 Lab Results 04/18/23 04/18/23 04/18/23 Range/Units 12:53 13:32 13:32 WBC 5.3 (3.8-10.6) k/uL RBC 4.85 (3.80-5.40) m/uL Hgb 13.2 (11.4-16.0) gm/dL Hct 40.7 (34.0-46.0) % MCV 83.9 (80.0-100.0) fL MCH 27.3 (25.0-35.0) pg MCHC 32.6 (31.0-37.0) g/dL RDW 15.3 (11.5-15.5) % Plt Count 193 (150-450) k/uL MPV 8.8 Neutrophils % 68 % Lymphocytes % 23 % Monocytes % 6 % Eosinophils % 0 % Basophils % 0 % Neutrophils # 3.6 (1.3-7.7) k/uL Lymphocytes # 1.2 (1.0-4.8) k/uL Monocytes # 0.3 (0-1.0) k/uL Eosinophils # 0.0 (0-0.7) k/uL Basophils # 0.0 (0-0.2) k/uL PT 10.7 (10.0-12.5) sec INR 1.0 (<1.2) APTT 21.3 L (22.0-30.0) sec Sodium (137-145) mmol/L Potassium (3.5-5.1) mmol/L Chloride (98-107) mmol/L Carbon Dioxide (22-30) mmol/L Anion Gap mmol/L BUN (7-17) mg/dL Creatinine (0.52-1.04) mg/dL Est GFR (CKD-EPI)AfAm (>60 ml/min/1.73 sqM) Est GFR (CKD-EPI)NonAf (>60 ml/min/1.73 sqM) Glucose (74-99) mg/dL POC Glucose (mg/dL) 193 H (70-110) mg/dL POC Glu Bag Worker ID Ike Gutiérrez Plasma Lactic Acid [place] (0.7-2.0) mmol/L Calcium (8.4-10.2) mg/dL Magnesium (1.6-2.3) mg/dL Total Bilirubin (0.2-1.3) mg/dL AST (14-36) U/L ALT (4-34) U/L Alkaline Phosphatase (38-126) U/L Ammonia (<30) umol/L Total Protein (6.3-8.2) g/dL Albumin (3.5-5.0) g/dL Urine Color Urine Appearance (Clear) Urine pH (5.0-8.0) Ur Specific [place] (1.001-1.035) Urine Protein (Negative) Urine Glucose (UA) (Negative) Urine Ketones (Negative) Urine Blood (Negative) Urine Nitrite (Negative) Urine Bilirubin (Negative) Urine Urobilinogen (<2.0) mg/dL Ur Leukocyte Esterase (Negative) Urine RBC (0-5) /hpf Urine WBC (0-5) /hpf Ur Squamous Epith Cells (0-4) /hpf Urine Bacteria (None) /hpf Influenza Type A (PCR) (Not Detectd) Influenza Type B (PCR) (Not Detectd) RSV (PCR) (Not Detectd) SARS-CoV-2 (PCR) (Not Detectd) 04/18/23 04/18/23 04/18/23 Range/Units 13:32 13:32 13:32 WBC (3.8-10.6) k/uL RBC (3.80-5.40) m/uL Hgb (11.4-16.0) gm/dL Hct (34.0-46.0) % MCV (80.0-100.0) fL MCH (25.0-35.0) pg MCHC (31.0-37.0) g/dL RDW (11.5-15.5) % Plt Count (150-450) k/uL MPV Neutrophils % % Lymphocytes % % Monocytes % % Eosinophils % % Basophils % % Neutrophils # (1.3-7.7) k/uL Lymphocytes # (1.0-4.8) k/uL Monocytes # (0-1.0) k/uL Eosinophils # (0-0.7) k/uL Basophils # (0-0.2) k/uL PT (10.0-12.5) sec INR (<1.2) APTT (22.0-30.0) sec Sodium 149 H (137-145) mmol/L Potassium 4.5 (3.5-5.1) mmol/L Chloride 113 H (98-107) mmol/L Carbon Dioxide 19 L (22-30) mmol/L Anion Gap 17 mmol/L BUN 34 H (7-17) mg/dL Creatinine 1.26 H (0.52-1.04) mg/dL Est GFR (CKD-EPI)AfAm 54 (>60 ml/min/1.73 sqM) Est GFR (CKD-EPI)NonAf 47 (>60 ml/min/1.73 sqM) Glucose 208 H (74-99) mg/dL POC Glucose (mg/dL) (70-110) mg/dL POC Glu Bag Worker ID Plasma Lactic Acid [place] 1.4 (0.7-2.0) mmol/L Calcium 9.8 (8.4-10.2) mg/dL Magnesium 1.8 (1.6-2.3) mg/dL Total Bilirubin 0.6 (0.2-1.3) mg/dL AST 24 (14-36) U/L ALT 22 (4-34) U/L Alkaline Phosphatase 82 (38-126) U/L Ammonia <9 (<30) umol/L Total Protein 7.0 (6.3-8.2) g/dL Albumin 4.3 (3.5-5.0) g/dL Urine Color Urine Appearance (Clear) Urine pH (5.0-8.0) Ur Specific [place] (1.001-1.035) Urine Protein (Negative) Urine Glucose (UA) (Negative) Urine Ketones (Negative) Urine Blood (Negative) Urine Nitrite (Negative) Urine Bilirubin (Negative) Urine Urobilinogen (<2.0) mg/dL Ur Leukocyte Esterase (Negative) Urine RBC (0-5) /hpf Urine WBC (0-5) /hpf Ur Squamous Epith Cells (0-4) /hpf Urine Bacteria (None) /hpf Influenza Type A (PCR) Not Detected (Not Detectd) Influenza Type B (PCR) Not Detected (Not Detectd) RSV (PCR) Not Detected (Not Detectd) SARS-CoV-2 (PCR) Not Detected (Not Detectd) 04/18/23 Range/Units 13:37 WBC (3.8-10.6) k/uL RBC (3.80-5.40) m/uL Hgb (11.4-16.0) gm/dL Hct (34.0-46.0) % MCV (80.0-100.0) fL MCH (25.0-35.0) pg MCHC (31.0-37.0) g/dL RDW (11.5-15.5) % Plt Count (150-450) k/uL MPV Neutrophils % % Lymphocytes % % Monocytes % % Eosinophils % % Basophils % % Neutrophils # (1.3-7.7) k/uL Lymphocytes # (1.0-4.8) k/uL Monocytes # (0-1.0) k/uL Eosinophils # (0-0.7) k/uL Basophils # (0-0.2) k/uL PT (10.0-12.5) sec INR (<1.2) APTT (22.0-30.0) sec Sodium (137-145) mmol/L Potassium (3.5-5.1) mmol/L Chloride (98-107) mmol/L Carbon Dioxide (22-30) mmol/L Anion Gap mmol/L BUN (7-17) mg/dL Creatinine (0.52-1.04) mg/dL Est GFR (CKD-EPI)AfAm (>60 ml/min/1.73 sqM) Est GFR (CKD-EPI)NonAf (>60 ml/min/1.73 sqM) Glucose (74-99) mg/dL POC Glucose (mg/dL) (70-110) mg/dL POC Glu Bag Worker ID Plasma Lactic Acid [place] (0.7-2.0) mmol/L Calcium (8.4-10.2) mg/dL Magnesium (1.6-2.3) mg/dL Total Bilirubin (0.2-1.3) mg/dL AST (14-36) U/L ALT (4-34) U/L Alkaline Phosphatase (38-126) U/L Ammonia (<30) umol/L Total Protein (6.3-8.2) g/dL Albumin (3.5-5.0) g/dL Urine Color Colorless Urine Appearance Cloudy H (Clear) Urine pH 6.0 (5.0-8.0) Ur Specific [place] 1.012 (1.001-1.035) Urine Protein Trace H (Negative) Urine Glucose (UA) Negative (Negative) Urine Ketones Trace H (Negative) Urine Blood Trace H (Negative) Urine Nitrite Positive H (Negative) Urine Bilirubin Negative (Negative) Urine Urobilinogen <2.0 (<2.0) mg/dL Ur Leukocyte Esterase Large H (Negative) Urine RBC 2 (0-5) /hpf Urine WBC 73 H (0-5) /hpf Ur Squamous Epith Cells <1 (0-4) /hpf Urine Bacteria Rare H (None) /hpf Influenza Type A (PCR) (Not Detectd) Influenza Type B (PCR) (Not Detectd) RSV (PCR) (Not Detectd) SARS-CoV-2 (PCR) (Not Detectd) Disposition Clinical Impression: UTI (urinary tract infection) Disposition: ADMITTED IP TO THIS HOSP Condition: Fair Referrals: Gamal Stuart DO [Primary Care Provider] - 1-2 days Decision Time: 14:50
[2023-04-18 12:59] LABS: Glucose,Whole Blood 193 mg/dL (70-110)
[2023-04-18] MEDS: SODIUM CHLORIDE 0.9% 1,000 ML IV STA (13:27)
[2023-04-18 13:38] LABS: Basophils % (A) 0 %; Eosinophils % (A) 0 %; HCT 40.7 % (34.0-46.0); HGB 13.2 gm/dL (11.4-16.0); Lymphocytes # (A) 1.2 k/uL (1.0-4.8); Lymphocytes % (A) 23 %; MCH 27.3 pg (25.0-35.0); MCHC 32.6 g/dL (31.0-37.0); MCV 83.9 fL (80.0-100.0); Mean Platelet Volume 8.8; Monocytes # (A) 0.3 k/uL (0-1.0); Monocytes % (A) 6 %; Neutrophils # (A) 3.6 k/uL (1.3-7.7); Neutrophils % (A) 68 %; Platelet Count 193 k/uL (150-450); RBC 4.85 m/uL (3.80-5.40); RDW 15.3 % (11.5-15.5); WBC 5.3 k/uL (3.8-10.6)
[2023-04-18 13:47] LABS: Appearance,Urine Cloudy (Clear); Bacteria,Urine Rare /hpf; Bilirubin,Urine Negative (Negative); Blood,Urine Trace (Negative); Color,Urine Colorless; Glucose,Urine (UA) Negative (Negative); Ketones,Urine Trace (Negative); Leukocyte Esterase,Urine Large (Negative); Nitrite,Urine Positive (Negative); Protein,Urine Trace (Negative); RBC,Urine 2 /hpf (0-5); Specific Gravity,Urine 1.012 (1.001-1.035); Squamous Epithelial Cell,Urine <1 /hpf (0-4); Urobilinogen,Urine <2.0 mg/dL (<2.0); WBC,Urine 73 /hpf (0-5)
[2023-04-18 13:51] LABS: Lactic Acid, Venous 1.4 mmol/L (0.7-2.0)
[2023-04-18 13:53] LABS: ALT 22 U/L (4-34); AST 24 U/L (14-36); African American GFR (CKD) 54 (>60 ml/min/1.73 sqM); Albumin 4.3 g/dL (3.5-5.0); Alkaline Phosphatase 82 U/L (38-126); Anion Gap 17 mmol/L; Blood Urea Nitrogen 34 mg/dL (7-17); Calcium 9.8 mg/dL (8.4-10.2); Carbon Dioxide 19 mmol/L (22-30); Chloride 113 mmol/L (98-107); Glucose 208 mg/dL (74-99); Magnesium 1.8 mg/dL (1.6-2.3); Non-African American GFR(CKD) 47 (>60 ml/min/1.73 sqM); Potassium 4.5 mmol/L (3.5-5.1); Sodium 149 mmol/L (137-145); Total Bilirubin 0.6 mg/dL (0.2-1.3)
[2023-04-18 13:54] LABS: Partial Thromboplastin Time 21.3 sec (22.0-30.0); Prothrombin Time 10.7 sec (10.0-12.5)
--- NOTE | 2023-04-18 14:11 | XR ---
EXAMINATION TYPE: XR chest 1V portable DATE OF EXAM: 04/18/2023 Comparison: 02/20/2023 Clinical History: 57-year-old female confusion, altered mental status Findings: Heart upper limits of normal in size. Diffuse interstitial density. No consolidation or pleural effus ion. Old healed left-sided rib fracture deformity. Impression: Borderline heart size. Interstitial prominence could reflect bronchitis, asthma, or mild pulmonary va scular congestion.
--- NOTE | 2023-04-18 14:16 | CT ---
EXAMINATION TYPE: CT brain wo con CT DLP: 1066.4 mGycm, Automated exposure control for dose reduction was used. DATE OF EXAM: 04/18/2023 2:02 PM COMPARISON: CT head 02/20/2023 and before. CLINICAL INDICATION:Female, 57 years old with history of ams, AMS TECHNIQUE: Brain: Axial CT images of the brain were obtained with coronal and sagittal reformats created and rev iewed. Contrast used: None. Oral contrast used: None. FINDINGS: Extra-axial spaces: No abnormal extra-axial fluid collections. Ventricular system: Ventricles appear mildly dilated in proportion to the degree of cerebral atrophy. Cerebral parenchyma: No increased attenuation to suggest acute intraparenchymal hemorrhage. The gra y-white matter interface appears maintained. Mild generalized brain atrophy. Scattered mild hypoatt enuating areas are again seen within the cerebral white matter, nonspecific but most often seen with chronic microvascular ischemic changes; additional possibilities would include sequela of migraines, vasculitis, MS. Cerebellum: No acute abnormality. Mass effect: No evidence of mass effect or midline shift. Intracranial vasculature: Unremarkable Soft tissues: No acute or concerning abnormality. Visualized orbits: Orbital contents appear grossly intact. Calvarium/osseous structures: No evidence of calvarial fracture. Paranasal sinuses and mastoid air cells: Minimal mucosal thickening and/or fluid in the right sphenoi d sinus and a right ethmoid air cell. Nasal septal deviation towards the left. Mastoid air cells are clear. MRI is more sensitive for detecting acute processes such as infarct, and may be considered if clinica lly warranted. IMPRESSION: 1. No acute intracranial CT abnormality. 2. Mild scattered nonspecific white matter hypoattenuation redemonstrated, most often seen with care provider yogi microvascular ischemic changes.
[2023-04-18] MEDS ORDERED: ACETAMINOPHEN TAB 325 MG TAB PO PRN (14:44)
[2023-04-18] MEDS ORDERED: NALOXONE 0.4 MG/ML 1 ML VIAL IV PRN (14:44)
[2023-04-18] MEDS: PIPERACILLIN-TAZOBACTAM 3.375 GM in SODIUM CHLORIDE 0.9% 100 ML IVPB SCH (15:36)
[2023-04-18] MEDS: SODIUM CHLORIDE 0.9% 1,000 ML IV SCH (15:38)
[2023-04-18] MEDS: ERTAPENEM 1 GM in SODIUM CHLORIDE 0.9% 50 ML IVPB SCH (17:28)
[2023-04-18] MEDS ORDERED: DEXTROSE 50% SYRINGE 50 ML IVP PRN ×2 (18:16)
[2023-04-18] MEDS ORDERED: LORazepam 0.5 MG TAB PO PRN (18:17)
[2023-04-18] MEDS ORDERED: ALBUTEROL HFA INHALER INHALATION PRN (18:17)
[2023-04-18] MEDS: DEXTROSE 5% IN WATER 1,000 ML IV ONE (18:34)
[2023-04-18] MEDS: SYMBICORT 160-4.5 MCG INHALER INHALATION SCH (19:32)
[2023-04-18] MEDS: FORMOTEROL FUMARATE 20 MCG/2 ML NEBU INHALATION SCH (19:32)
[2023-04-18] MEDS: ATORVASTATIN 40 MG TAB PO SCH (20:23)
[2023-04-18] MEDS: MAGNESIUM OXIDE 400 MG TAB PO SCH (20:23)
[2023-04-18] MEDS: cloZAPine 100 MG TAB PO SCH (20:24)
[2023-04-18] MEDS: METOPROLOL TARTRATE 25 MG TAB PO SCH (20:25)
[2023-04-18] MEDS: PANTOPRAZOLE 40 MG TABLET PO SCH (20:25)
[2023-04-18] MEDS: APIXABAN 5 MG TAB PO SCH (20:26)
[2023-04-18 20:34] LABS: Glucose,Whole Blood 383 mg/dL (70-110)
[2023-04-18] MEDS: fluPHENAZine DECANOATE 25 MG/ML 5ML MDV IM SCH (20:34)
[2023-04-18] MEDS: NICOTINE 21MG/24HR PATCH TRANSDERM SCH (20:54)
[2023-04-18] MEDS: INSULIN ASPART (NovoLOG) 100 UNIT/ML VIAL SQ SCH (20:55)
[2023-04-18] MEDS: INSULIN DETEMIR (LEVEMIR) 100 UNIT/ML SYR SQ SCH (20:55)
--- NOTE | 2023-04-18 21:28 | P.CONS ---
History of Present Illness - Reason for Consult Consult date: 04/18/23 - History of Present Illness Patient is a 57-year-old female with a past medical history significant for diabetes mellitus hypertension COPD PE seizure disorder patient was brought into the hospital for evaluation of mental status changes apparently patient was last seen normal on Monday night the patient was out with the family for dinner family member went to check on her today and and the patient was noticed to be altered and EMS was calling on arrival of EMS the patient was lying down and foul-smelling urine subsequently patient was brought into the hospital for further evaluation patient on presentation to the hospital did have a low-grade fever of 99 degrees for night patient was tachycardic but not hypotensive mildly hypoxic currently on 1.5 L nasal cannula oxygen patient did have a white count of 5.3 BUN/creatinine has been mildly elevated liver enzymes are normal urine has been positive influenza RSV COVID testing was negative patient did have a chest x-ray borderline heart size interstitial prominence mild pulmonary vascular congestion patient was started on Zosyn concerning for urinary tract infection last urine culture November 2022 was positive for ESBL Klebsiella, infectious disease was consulted for further management of antibiotic therapy patient at the time of My evaluation is pleasantly confused and unable to provide reliable history at all specifically for any headache c hest pain shortness of breath or cough patient denied no vomiting or diarrhea has been reported Past Medical History Past Medical History: COPD, Diabetes Mellitus, GERD/Reflux, Hypertension, Osteoarthritis (OA), Pulmonary Embolus (PE), Seizure Disorder Additional Past Medical History / Comment(s): Hx of colon polyps, neuorgenic bladder, anemia, self caths at home, thyroid nodule, UTI with hospital admission september 2021- klebsiella treated with ceftin History of Any Multi-Drug Resistant Organisms: ESBL Year Discovered:: 12/01/22 MDRO Source:: Urine Past Surgical History: Back Surgery, Breast Surgery, Ear Surgery Additional Past Surgical History / Comment(s): hunter breast reduction, breast biopsy, bladder stimulator implant, skin grafts to ear Past Anesthesia/Blood Transfusion Reactions: No Reported Reaction Past Psychological History: Bipolar, Depression, Schizoaffective Disorder Smoking Status: Current some day smoker Past Alcohol Use History: None Reported Past Drug Use History: None Reported - Past Family History Father Family Medical History: Cancer Additional Family Medical History / Comment(s): lung Sister(s) Family Medical History: Cancer Additional Family Medical History / Comment(s): ovarian Medications and Allergies Home Medications Medication Instructions Recorded Confirmed Type fluPHENAZine decanoate [Prolixin 50 mg IM Q14D 01/21/16 04/18/23 History Decanoate] Tamsulosin [Flomax] 0.4 mg PO DAILY 03/13/17 04/18/23 History Apixaban [Eliquis] 5 mg PO BID 10/24/20 04/18/23 History fluvoxaMINE MALEATE [Luvox] 100 mg PO HS 10/24/20 04/18/23 History Atorvastatin [Lipitor] 40 mg PO HS 10/19/21 04/18/23 History sitaGLIPtin [Januvia] 100 mg PO DAILY 03/19/22 04/18/23 History Albuterol Inhaler [Ventolin Hfa 2 puff INHALATION RT-Q6H PRN 11/02/22 04/18/23 History Inhaler] Ergocalciferol (Vitamin D2) 1,250 mcg PO Q7DAYS 11/02/22 04/18/23 History [Drisdol (50,000 Iu)] Metoprolol Tartrate [Lopressor] 25 mg PO BID 11/02/22 04/18/23 History Budesonide/Formoterol Fumarate 2 puff INHALATION RT-BID 02/19/23 04/18/23 History [Symbicort 160-4.5 Mcg Inhaler] Famotidine 40 mg PO BID 02/19/23 04/18/23 History Glimepiride [Amaryl] 8 mg PO DAILY 02/19/23 04/18/23 History Magnesium Oxide [Mag-Ox] 400 mg PO BID 02/19/23 04/18/23 History cloZAPine [Clozaril] 200 mg PO HS 02/19/23 04/18/23 History Cholecalciferol [Vitamin D3 (25 25 mcg PO DAILY 04/18/23 04/18/23 History Mcg = 1000 Iu)] LORazepam [Ativan] 0.5 mg PO BID PRN 04/18/23 04/18/23 History Nicotine 21Mg/24Hr Patch [Habitrol] 1 patch TRANSDERM DAILY 04/18/23 04/18/23 History Pantoprazole Sodium [Protonix] 40 mg PO BID 04/18/23 04/18/23 History Tiotropium Br/Olodaterol HCl 2 puff INHALATION RT-DAILY 04/18/23 04/18/23 History [Stiolto Respimat Inhal [place]] metFORMIN HCL ER [Glucophage XR] 1,000 mg PO W/SUPPER 04/18/23 04/18/23 History Allergies Allergy/AdvReac Type Severity Reaction Status Date / Time haloperidol [From Haldol] AdvReac Muscles Verified 04/18/23 14:50 freeze up in arms and hands haloperidol lactate AdvReac Muscles Verified 04/18/23 14:50 [From Haldol] freeze up in arms and hands Physical Exam Vitals: Vital Signs Temp Pulse Resp BP Pulse Ox 04/18/23 15:26 115 H 18 119/95 94 L 04/18/23 12:43 99.0 F 125 H 20 128/98 94 L Intake and Output 04/18/23 04/18/23 04/18/23 06:59 14:59 22:59 Other: Weight 68.039 kg Results CBC & Chem 7: 04/18/23 13:32 04/18/23 13:32 Labs: Abnormal Lab Results - Last 24 Hours (Table) 04/18/23 04/18/23 04/18/23 Range/Units 12:53 13:32 13:32 APTT 21.3 L (22.0-30.0) sec Sodium 149 H (137-145) mmol/L Chloride 113 H (98-107) mmol/L Carbon Dioxide 19 L (22-30) mmol/L BUN 34 H (7-17) mg/dL Creatinine 1.26 H (0.52-1.04) mg/dL Glucose 208 H (74-99) mg/dL POC Glucose (mg/dL) 193 H (70-110) mg/dL Urine Appearance (Clear) Urine Protein (Negative) Urine Ketones (Negative) Urine Blood (Negative) Urine Nitrite (Negative) Ur Leukocyte Esterase (Negative) Urine WBC (0-5) /hpf Urine Bacteria (None) /hpf 04/18/23 Range/Units 13:37 APTT (22.0-30.0) sec Sodium (137-145) mmol/L Chloride (98-107) mmol/L Carbon Dioxide (22-30) mmol/L BUN (7-17) mg/dL Creatinine (0.52-1.04) mg/dL Glucose (74-99) mg/dL POC Glucose (mg/dL) (70-110) mg/dL Urine Appearance Cloudy H (Clear) Urine Protein Trace H (Negative) Urine Ketones Trace H (Negative) Urine Blood Trace H (Negative) Urine Nitrite Positive H (Negative) Ur Leukocyte Esterase Large H (Negative) Urine WBC 73 H (0-5) /hpf Urine Bacteria Rare H (None) /hpf Assessment and Plan Plan: 1patient has been brought to the hospital for evaluation of mental status changes patient was noticed to be altered did have a foul-smelling urine positive UA concerning for symptomatic urinary infection with a last urine culture positive for ESBL Klebsiella questionably similar or a different pathogen 2-discontinue Zosyn 3-start the patient on Invanz 1 g daily while waiting for the culture to finalize We will follow on clinical condition and cultures to further adjust medication if needed Thank you for this consultation we will follow the patient along with you Dictation was produced using [employer] dictation software. please excuse any grammatical, word or spelling errors. Time with Patient: Greater than 30
[2023-04-18] MEDS: IPRATROPIUM 0.5 MG/2.5 ML NEBU INHALATION SCH (22:12)
[2023-04-19 07:47] LABS: Glucose,Whole Blood 291 mg/dL (70-110)
[2023-04-19] MEDS ORDERED: NON FORMULARY DRUG (Tiotropium Br/Olodaterol Hcl [Stiolto Respimat Inhal Spray] 4 GM Each) INHALATION SCH (08:00)
[2023-04-19] MEDS: CHOLECALCIFEROL 25 MCG (1000 IU) TABLET PO SCH (09:02)
[2023-04-19] MEDS: TAMSULOSIN 0.4 MG CAP.ER.24H PO SCH (09:03)
[2023-04-19] MEDS: LINAGLIPTIN 5 MG TABLET PO SCH (09:03)
[2023-04-19] MEDS: IPRATROPIUM 0.5 MG/2.5 ML NEBU INHALATION SCH (10:11)
[2023-04-19 12:11] LABS: Glucose,Whole Blood 285 mg/dL (70-110)
[2023-04-19 13:09] LABS: Basophils % (A) 0 %; Eosinophils % (A) 0 %; HCT 36.7 % (34.0-46.0); HGB 11.7 gm/dL (11.4-16.0); Hypochromasia Slight; Lymphocytes # (A) 1.5 k/uL (1.0-4.8); Lymphocytes % (A) 20 %; MCH 27.4 pg (25.0-35.0); MCV 85.8 fL (80.0-100.0); Mean Platelet Volume 8.5; Monocytes # (A) 0.5 k/uL (0-1.0); Monocytes % (A) 6 %; Neutrophils # (A) 5.3 k/uL (1.3-7.7); Neutrophils % (A) 72 %; Platelet Count 162 k/uL (150-450); RBC 4.27 m/uL (3.80-5.40); RDW 15.2 % (11.5-15.5); WBC 7.4 k/uL (3.8-10.6)
--- NOTE | 2023-04-19 13:34 | P.HPIM ---
History of Present Illness 57-year-old was brought in by family members because of altered mental status significantly worse than her baseline patient does have some psychiatric issues. Patient has ESBL in the past was found to have significantly abnormal urine is admitted very you urinary tract infection all the rest of the workup including COVID-19, chest x-ray RSV and influenza are all negative. Patient is alert oriented x 2-3 which is almost at baseline at this time patient was started on Invanz infectious disease evaluated the patient and they are recommending antibiotics. Patient is mildly hyponatremic secondary to IV normal saline patient was receiving. REVIEW OF SYSTEMS: All other review of systems are negative except those mentioned above unable to get much of the history from the patient patient is unable to why she is here but oriented x 2-3 PHYSICAL EXAMINATION: GENERAL: The patient is alert and oriented x2-3, not in any acute distress. Well developed, well nourished. HEENT: Pupils are round and equally reacting to light. EOMI. No scleral icterus. No conjunctival pallor. Normocephalic, atraumatic. No pharyngeal erythema. No thyromegaly. CARDIOVASCULAR: S1 and S2 present. No murmurs, rubs, or gallops. PULMONARY: Chest is clear to auscultation, no wheezing or crackles. ABDOMEN: Soft, nontender, nondistended, normoactive bowel sounds. No palpable organomegaly. MUSCULOSKELETAL: No joint swelling or deformity. EXTREMITIES: No cyanosis, clubbing, or pedal edema. NEUROLOGICAL: Gross neurological examination did not reveal any focal deficits. SKIN: No rashes. Assessment and plan -Possible toxic encephalopathy from urinary tract infection continue with Invanz, patient had history of ESBL E. coli in the past -Type 2 diabetes mellitus hold off metformin patient will be on sliding scale insulin history of her. Patient will be insulin scale rest of the insulin regimen will be continued patient blood sugars are expected to be high as patient is on D5 water at this time -Hyponatremia secondary to IV normal saline she received in ER, patient is presently on D5 water at 50 cc/h -Hyperchloremic metabolic acidosis secondary to normal saline -COPD without any acute exacerbation -Gastroesophageal reflux disease -Hypertension -History of seizures in the past who was resumed on home medications -Schizoaffective disorder history of DVT on anticoagulation with Eliquis at this time which will be continued Past Medical History Past Medical History: COPD, Diabetes Mellitus, GERD/Reflux, Hypertension, Osteoarthritis (OA), Pulmonary Embolus (PE), Seizure Disorder Additional Past Medical History / Comment(s): Hx of colon polyps, neuorgenic bladder, anemia, self caths at home, thyroid nodule, UTI with hospital admission september 2021- klebsiella treated with ceftin History of Any Multi-Drug Resistant Organisms: ESBL Date of last positivie culture/infection: 12/01/22 MDRO Source:: Urine Past Surgical History: Back Surgery, Breast Surgery, Ear Surgery Additional Past Surgical History / Comment(s): hunter breast reduction, breast biopsy, bladder stimulator implant, skin grafts to ear Past Anesthesia/Blood Transfusion Reactions: No Reported Reaction Past Psychological History: Bipolar, Depression, Schizoaffective Disorder Smoking Status: Current some day smoker Past Alcohol Use History: None Reported Additional Past Alcohol Use History / Comment(s): smokes approx half a pack a day, on and off from age 16 Past Drug Use History: None Reported - Past Family History Father Family Medical History: Cancer Additional Family Medical History / Comment(s): lung Sister(s) Family Medical History: Cancer Additional Family Medical History / Comment(s): ovarian Medications and Allergies Home Medications Medication Instructions Recorded Confirmed Type fluPHENAZine decanoate [Prolixin 50 mg IM Q14D 01/21/16 04/18/23 History Decanoate] Tamsulosin [Flomax] 0.4 mg PO DAILY 03/13/17 04/18/23 History Apixaban [Eliquis] 5 mg PO BID 10/24/20 04/18/23 History fluvoxaMINE MALEATE [Luvox] 100 mg PO HS 10/24/20 04/18/23 History Atorvastatin [Lipitor] 40 mg PO HS 10/19/21 04/18/23 History sitaGLIPtin [Januvia] 100 mg PO DAILY 03/19/22 04/18/23 History Albuterol Inhaler [Ventolin Hfa 2 puff INHALATION RT-Q6H PRN 11/02/22 04/18/23 History Inhaler] Ergocalciferol (Vitamin D2) 1,250 mcg PO Q7DAYS 11/02/22 04/18/23 History [Drisdol (50,000 Iu)] Metoprolol Tartrate [Lopressor] 25 mg PO BID 11/02/22 04/18/23 History Budesonide/Formoterol Fumarate 2 puff INHALATION RT-BID 02/19/23 04/18/23 History [Symbicort 160-4.5 Mcg Inhaler] Famotidine 40 mg PO BID 02/19/23 04/18/23 History Glimepiride [Amaryl] 8 mg PO DAILY 02/19/23 04/18/23 History Magnesium Oxide [Mag-Ox] 400 mg PO BID 02/19/23 04/18/23 History cloZAPine [Clozaril] 200 mg PO HS 02/19/23 04/18/23 History Cholecalciferol [Vitamin D3 (25 25 mcg PO DAILY 04/18/23 04/18/23 History Mcg = 1000 Iu)] LORazepam [Ativan] 0.5 mg PO BID PRN 04/18/23 04/18/23 History Nicotine 21Mg/24Hr Patch [Habitrol] 1 patch TRANSDERM DAILY 04/18/23 04/18/23 History Pantoprazole Sodium [Protonix] 40 mg PO BID 04/18/23 04/18/23 History Tiotropium Br/Olodaterol HCl 2 puff INHALATION RT-DAILY 04/18/23 04/18/23 History [Stiolto Respimat Inhal [place]] metFORMIN HCL ER [Glucophage XR] 1,000 mg PO W/SUPPER 04/18/23 04/18/23 History Allergies Allergy/AdvReac Type Severity Reaction Status Date / Time haloperidol [From Haldol] AdvReac Muscles Verified 04/18/23 14:50 freeze up in arms and hands haloperidol lactate AdvReac Muscles Verified 04/18/23 14:50 [From Haldol] freeze up in arms and hands Physical Exam Vitals: Vital Signs Temp Pulse Pulse Pulse Resp BP BP 04/19/23 12:35 101 H 04/19/23 12:17 97 04/19/23 12:07 98.0 F 98 18 122/83 04/19/23 11:32 98.5 F 97 18 116/74 04/19/23 10:24 110 H 04/19/23 10:13 97 04/19/23 09:04 98.1 F 104 H 18 141/92 04/19/23 02:00 96 11 L 119/83 04/18/23 20:00 122 H 23 128/81 04/18/23 19:45 119 H 04/18/23 19:34 120 H 04/18/23 16:30 98.6 F 120 H 18 142/95 04/18/23 15:26 115 H 18 119/95 Pulse Ox 04/19/23 12:35 04/19/23 12:17 04/19/23 12:07 99 04/19/23 11:32 99 04/19/23 10:24 04/19/23 10:13 100 04/19/23 09:04 99 04/19/23 02:00 96 04/18/23 20:00 97 04/18/23 19:45 04/18/23 19:34 04/18/23 16:30 95 04/18/23 15:26 94 L Intake and Output 04/18/23 04/19/23 04/19/23 22:59 06:59 14:59 Intake Total 70 600 Output Total 300 1200 Balance -230 600 -1200 Intake: IV 70 600 Dextrose 5% in Water 1, 600 000 ml @ 75 mls/hr IV . [id number] [facility] Rx#:[id number] Ertapenem 1 gm In Sodium 50 Chloride 0.9% 50 ml @ 100 mls/hr IVPB DAILY [facility] Rx #:[id number] Sodium Chloride 0.9% 1, 20 000 ml @ 20 mls/hr IV . Q24H [facility] Rx#:[id number] Output: Urine 300 1200 Other: Weight 68.039 kg Results CBC & Chem 7: 04/19/23 12:25 04/18/23 13:32 Labs: Abnormal Lab Results - Last 24 Hours (Table) 04/18/23 04/18/23 04/18/23 Range/Units 13:32 13:32 13:37 APTT 21.3 L (22.0-30.0) sec Sodium 149 H (137-145) mmol/L Chloride 113 H (98-107) mmol/L Carbon Dioxide 19 L (22-30) mmol/L BUN 34 H (7-17) mg/dL Creatinine 1.26 H (0.52-1.04) mg/dL Glucose 208 H (74-99) mg/dL POC Glucose (mg/dL) (70-110) mg/dL Urine Appearance Cloudy H (Clear) Urine Protein Trace H (Negative) Urine Ketones Trace H (Negative) Urine Blood Trace H (Negative) Urine Nitrite Positive H (Negative) Ur Leukocyte Esterase Large H (Negative) Urine WBC 73 H (0-5) /hpf Urine Bacteria Rare H (None) /hpf 04/18/23 04/19/23 04/19/23 Range/Units 20:32 07:45 12:09 APTT (22.0-30.0) sec Sodium (137-145) mmol/L Chloride (98-107) mmol/L Carbon Dioxide (22-30) mmol/L BUN (7-17) mg/dL Creatinine (0.52-1.04) mg/dL Glucose (74-99) mg/dL POC Glucose (mg/dL) 383 H 291 H 285 H (70-110) mg/dL Urine Appearance (Clear) Urine Protein (Negative) Urine Ketones (Negative) Urine Blood (Negative) Urine Nitrite (Negative) Ur Leukocyte Esterase (Negative) Urine WBC (0-5) /hpf Urine Bacteria (None) /hpf
[2023-04-19] MEDS: DEXTROSE 5% IN WATER 1,000 ML IV ONE (16:27)
[2023-04-19 17:23] LABS: Glucose,Whole Blood 219 mg/dL (70-110)
[2023-04-19 19:01] LABS: Blood Urea Nitrogen 25.2 mg/dL (9.0-27.0); Calcium 8.9 mg/dL (8.7-10.3); Carbon Dioxide 25.9 mmol/L (21.6-31.8); Chloride 102 mmol/L (96-109); Glucose 278 mg/dL (70-110); Magnesium 1.9 mg/dL (1.5-2.4); Sodium 142 mmol/L (135-145)
--- NOTE | 2023-04-20 14:47 | P.PN ---
Subjective Progress Note Date: 04/20/23 Principal diagnosis: Reason for follow-up is urinary tract infection Patient is a 57-year-old female with a past medical history significant for diabetes mellitus hypertension COPD PE seizure disorder patient was brought into the hospital for evaluation of mental status changes, P did have a positive history of recurrent UTI with last urine culture positive for ESBL Klebsiella prompting this infectious disease consultation On today's evaluation that is 04/20/2023,the patient denies any fever or any chills, patient is breathing comfortably on room air, the patient denies chest pain shortness of breath and no significant cough, patient denies abdominal pain, no nausea vomiting or diarrhea. No new labs has been obtained today urine finalized with Klebsiella that is not an ESBL Objective - Vital Signs Vital signs: Vital Signs Temp 97.7 F 04/20/23 07:02 Pulse 96 04/20/23 09:05 Resp 17 04/20/23 09:05 BP 103/72 04/20/23 07:02 Pulse Ox 95 04/20/23 07:02 FiO2 Intake & Output 04/19/23 04/20/23 04/20/23 18:59 06:59 18:59 Intake Total 480 Output Total 1700 1700 Balance -1700 -1220 Weight 68.039 kg Intake: Oral 480 Output: Urine 1700 1700 Other: Voiding Method Indwelling Catheter Indwelling Catheter - Exam GENERAL DESCRIPTION: Middle-aged female lying in bed in no distress RESPIRATORY SYSTEM: Unlabored breathing , decreased breath sounds at bases HEART: S1 S2 regular rate and rhythm , ABDOMEN: Soft , no tenderness EXTREMITIES: No edema feet - Labs CBC & Chem 7: 04/19/23 12:25 04/19/23 12:25 Labs: Abnormal Lab Results - Last 24 Hours (Table) 04/19/23 04/19/23 04/19/23 Range/Units 12:09 12:25 12:25 Anion Gap 14.10 H (4.00-12.00) mmol/L Est GFR (CKD-EPI) 52 L (>=60) BUN/Creatinine Ratio 21.00 H (12.00-20.00) Ratio Glucose 278 H (70-110) mg/dL POC Glucose (mg/dL) 285 H (70-110) mg/dL Hemoglobin A1c 8.7 H (<=6.0) % 04/19/23 Range/Units 17:22 Anion Gap (4.00-12.00) mmol/L Est GFR (CKD-EPI) (>=60) BUN/Creatinine Ratio (12.00-20.00) Ratio Glucose (70-110) mg/dL POC Glucose (mg/dL) 219 H (70-110) mg/dL Hemoglobin A1c (<=6.0) % Microbiology - Last 24 Hours (Table) 04/18/23 13:30 Blood Culture - Preliminary Blood 04/18/23 13:37 Urine Culture - Preliminary Urine,Voided Gram Neg Bacilli Assessment and Plan (1) UTI (urinary tract infection) Current Visit: Yes Status: Acute Code(s): N39.0 - URINARY TRACT INFECTION, SITE NOT SPECIFIED SNOMED Code(s): 66898512 Plan: 1patient has been brought to the hospital for evaluation of mental status changes patient was noticed to be altered did have a foul-smelling urine positive UA concerning for symptomatic urinary infection with a last urine culture positive for ESBL Klebsiella, patient urine culture this admission is growing Klebsiella that is not any ESBL 2we will discontinue Invanz start the patient on Rocephin however patient be able to finish therapy with oral antibiotic therapy Dictation was produced using [employer] dictation software. please excuse any grammatical, word or spelling errors. Time with Patient: Less than 30
[2023-04-20 16:33] LABS: Glucose,Whole Blood 175 mg/dL (70-110)
[2023-04-20 18:35] LABS: Glucose,Whole Blood 177 mg/dL (70-110)
[2023-04-20 18:35] LABS: Glucose,Whole Blood 235 mg/dL (70-110)
[2023-04-20 18:35] LABS: Glucose,Whole Blood 220 mg/dL (70-110)
[2023-04-20 18:35] LABS: Glucose,Whole Blood 235 mg/dL (70-110)
[2023-04-20 21:24] LABS: Glucose,Whole Blood 235 mg/dL (70-110)
--- NOTE | 2023-04-20 22:29 | P.PN ---
Subjective Progress Note Date: 04/20/23 57-year-old was brought in by family members because of altered mental status significantly worse than her baseline patient does have some psychiatric issues. Patient has ESBL in the past was found to have significantly abnormal urine is admitted very you urinary tract infection all the rest of the workup including COVID-19, chest x-ray RSV and influenza are all negative. Patient is alert oriented x 2-3 which is almost at baseline at this time patient was started on Invanz infectious disease evaluated the patient and they are recommending antibiotics. Patient is mildly hyponatremic secondary to IV normal saline patient was receiving. 04/20/2023 Patient is evaluated today resting in bed. Mentation is 2-3. Denies any dysuria urgency or frequency. No abdominal pain, no nausea no vomiting or diarrhea. Urine culture showing gram-negative bacilli patient remains on IV antibiotics in the form of IV Invanz. ID following closely. REVIEW OF SYSTEMS: All other review of systems are negative except those mentioned above unable to get much of the history from the patient patient is unable to why she is here but oriented x 2-3 PHYSICAL EXAMINATION: GENERAL: The patient is alert and oriented x2-3, not in any acute distress. Well developed, well nourished. HEENT: Pupils are round and equally reacting to light. EOMI. No scleral icterus. No conjunctival pallor. Normocephalic, atraumatic. No pharyngeal erythema. No thyromegaly. CARDIOVASCULAR: S1 and S2 present. No murmurs, rubs, or gallops. PULMONARY: Chest is clear to auscultation, no wheezing or crackles. ABDOMEN: Soft, nontender, nondistended, normoactive bowel sounds. No palpable organomegaly. MUSCULOSKELETAL: No joint swelling or deformity. EXTREMITIES: No cyanosis, clubbing, or pedal edema. NEUROLOGICAL: Gross neurological examination did not reveal any focal deficits. SKIN: No rashes. Assessment and plan -Possible toxic encephalopathy from urinary tract infection continue with Invanz, patient had history of ESBL E. coli in the past, urine culture pending preliminary showing gram negative bacilli -Type 2 diabetes mellitus hold off metformin patient will be on sliding scale insulin history of her. Patient will be insulin scale rest of the insulin regimen will be continued patient blood sugars are expected to be high as patient is on D5 water at this time -Hyponatremia secondary to IV normal saline she received in ER, patient is presently on D5 water at 50 cc/h -Hyperchloremic metabolic acidosis secondary to normal saline -COPD without any acute exacerbation -Gastroesophageal reflux disease -Hypertension -History of seizures in the past who was resumed on home medications -Schizoaffective disorder history of DVT on anticoagulation with Eliquis at this time which will be continued The impression and plan of care has been dictated by Mariana Zapata, Nurse Practitioner as directed. Dr. Bernardo MD I have performed a history and physical examination and medical decision making of this patient, discussed the same with the dictator, and agree with the dictators assessment and plan as written, documented as a scribe. Based on total visit time, I have performed more than 50% of this visit. Objective - Vital Signs Vital signs: Vital Signs Temp 97.7 F 04/20/23 07:02 Pulse 94 04/20/23 07:02 Resp 17 04/20/23 07:02 BP 103/72 04/20/23 07:02 Pulse Ox 95 04/20/23 07:02 FiO2 Intake & Output 04/19/23 04/20/23 04/20/23 18:59 06:59 18:59 Intake Total 480 Output Total 1700 1700 Balance -1700 -1220 Weight 68.039 kg Intake: Oral 480 Output: Urine 1700 1700 Other: Voiding Method Indwelling Catheter - Labs CBC & Chem 7: 04/19/23 12:25 04/19/23 12:25 Labs: Abnormal Lab Results - Last 24 Hours (Table) 04/19/23 04/19/23 04/19/23 Range/Units 12:09 12:25 12:25 Anion Gap 14.10 H (4.00-12.00) mmol/L Est GFR (CKD-EPI) 52 L (>=60) BUN/Creatinine Ratio 21.00 H (12.00-20.00) Ratio Glucose 278 H (70-110) mg/dL POC Glucose (mg/dL) 285 H (70-110) mg/dL Hemoglobin A1c 8.7 H (<=6.0) % 04/19/23 Range/Units 17:22 Anion Gap (4.00-12.00) mmol/L Est GFR (CKD-EPI) (>=60) BUN/Creatinine Ratio (12.00-20.00) Ratio Glucose (70-110) mg/dL POC Glucose (mg/dL) 219 H (70-110) mg/dL Hemoglobin A1c (<=6.0) % Microbiology - Last 24 Hours (Table) 04/18/23 13:30 Blood Culture - Preliminary Blood 04/18/23 13:37 Urine Culture - Preliminary Urine,Voided Gram Neg Bacilli Assessment and Plan Time with Patient: Less than 30
[2023-04-21 06:17] LABS: Glucose,Whole Blood 221 mg/dL (70-110)
[2023-04-21] MEDS: INSULIN DETEMIR (LEVEMIR) 100 UNIT/ML SYR SQ ONE (11:07)
[2023-04-21 11:10] LABS: BUN/Creat Ratio 17.42 Ratio (12.00-20.00); Blood Urea Nitrogen 20.9 mg/dL (9.0-27.0); Calcium 9.3 mg/dL (8.7-10.3); Carbon Dioxide 27.5 mmol/L (21.6-31.8); Chloride 104 mmol/L (96-109); Glucose 201 mg/dL (70-110); Potassium 4.4 mmol/L (3.5-5.5); Sodium 143 mmol/L (135-145)
[2023-04-21 11:41] LABS: Glucose,Whole Blood 161 mg/dL (70-110)
[2023-04-21] MEDS: INSULIN ASPART (NovoLOG) 100 UNIT/ML VIAL SQ SCH (12:27)
--- NOTE | 2023-04-21 12:57 | P.PN ---
Subjective Progress Note Date: 04/21/23 Principal diagnosis: Reason for follow-up is urinary tract infection Patient is a 57-year-old female with a past medical history significant for diabetes mellitus hypertension COPD PE seizure disorder patient was brought into the hospital for evaluation of mental status changes, P did have a positive history of recurrent UTI with last urine culture positive for ESBL Klebsiella prompting this infectious disease consultation On today's evaluation that is 04/21/2023,the patient remains to be afebrile, patient is on room air not requiring supplemental oxygen and denies any shortness of breath no chest pain or cough.Patient denies having any nausea or vomiting, no abdominal pain and no diarrhea has been reported, patient feeling much better. Patient creatinine 1.2 blood culture negative urine with Klebsiella sensitive to ceftriaxone and Cipro Objective - Vital Signs Vital signs: Vital Signs Temp 98.8 F 04/21/23 07:06 Pulse 84 04/21/23 07:06 Resp 17 04/21/23 07:06 BP 110/70 04/21/23 07:06 Pulse Ox 96 04/21/23 08:10 FiO2 Intake & Output 04/20/23 04/21/23 04/21/23 18:59 06:59 18:59 Output Total 750 1600 950 Balance -750 -1600 -950 Output: Urine 750 1600 950 Other: Voiding Method Indwelling Catheter Indwelling Catheter # Bowel Movements 1 1 - Exam GENERAL DESCRIPTION: Middle-aged female lying in bed in no distress RESPIRATORY SYSTEM: Unlabored breathing , decreased breath sounds at bases HEART: S1 S2 regular rate and rhythm , ABDOMEN: Soft , no tenderness EXTREMITIES: No edema feet - Labs CBC & Chem 7: 04/19/23 12:25 04/21/23 06:41 Labs: Abnormal Lab Results - Last 24 Hours (Table) 04/19/23 04/20/23 04/20/23 Range/Units 20:19 06:22 11:30 Est GFR (CKD-EPI) (>=60) Glucose (70-110) mg/dL POC Glucose (mg/dL) 235 H 177 H 235 H (70-110) mg/dL 04/20/23 04/20/23 04/20/23 Range/Units 13:17 16:32 21:23 Est GFR (CKD-EPI) (>=60) Glucose (70-110) mg/dL POC Glucose (mg/dL) 220 H 175 H 235 H (70-110) mg/dL 04/21/23 04/21/23 04/21/23 Range/Units 06:14 06:41 11:41 Est GFR (CKD-EPI) 52 L (>=60) Glucose 201 H (70-110) mg/dL POC Glucose (mg/dL) 221 H 161 H (70-110) mg/dL Microbiology - Last 24 Hours (Table) 04/18/23 13:30 Blood Culture - Preliminary Blood 04/18/23 13:37 Urine Culture - Final Urine,Voided Klebsiella pneumoniae Assessment and Plan (1) UTI (urinary tract infection) Current Visit: Yes Status: Acute Code(s): N39.0 - URINARY TRACT INFECTION, SITE NOT SPECIFIED SNOMED Code(s): 85858427 Plan: 1patient has been brought to the hospital for evaluation of mental status changes patient was noticed to be altered did have a foul-smelling urine positive UA concerning for symptomatic urinary infection with a last urine culture positive for ESBL Klebsiella, patient urine culture this admission is growing Klebsiella that is not any ESBL 2patient has shown clinical improvement blood culture has been negative she will continue with Rocephin inpatient and finishing therapy with oral Cipro x 7 days and discussed with the nurse petitioner for admitting team Dictation was produced using [employer] dictation software. please excuse any grammatical, word or spelling errors. Time with Patient: Less than 30
--- NOTE | 2023-04-21 16:29 | P.DS ---
Providers Date of admission: 04/18/23 14:46 Attending physician: Jorge Guerrier Consults: 04/18/23 14:44 Consult Physician Routine Consulting Provider: Hank Webb Consult Reason/Comments: esbl Do you want consulting provider notified?: Yes Primary care physician: Gamal Stuart [facility] Course: Final Diagnosis -AMS due to toxic encephalopathy from urinary tract infection with culture showing klebsiella, no ESBL. -Type 2 diabetes mellitus -Hyponatremia resolved with IV fluids -Hyperchloremic metabolic acidosis secondary to normal saline -COPD without any acute exacerbation -Gastroesophageal reflux disease -Hypertension -History of seizures in the past who was resumed on home medications -Schizoaffective disorder history of DVT on anticoagulation with Eliquis at this time which will be cont inued Discharge Disposition Patient is stable for discharge home. Patient does live by herself her sister share legal guardianship with this patient. Plan of care and discharge planning was discussed with patient's medical power of research attorney Nara who is her sister. Patient has been intermittent catheterize herself at home however family has concerns that she is not always sterile and that patient refuses supplies. Patient has refused an indwelling catheter in the past which was recommended by her urologist. She does have a follow-up in April of this year. We have also given her the information to follow-up with a urologist here in town. We would recommend to continue with the indwelling catheter on discharge and utilize a leg bag for this patient as she does continue to work. Patient will continue all of her same psychiatric medications that she does follow-up with Dr. Webb at [facility]. Urine culture has came back positive for Klebsiella pneumonia there is no evidence of ESBL E. coli and there is no need for IV antibiotics on discharge patient will continue on antibiotic therapy with oral ciprofloxacin 500 mg twice a day for the next 7 days. Patient to follow-up with infectious disease Dr. Crawford on discharge as well. Patient to discharge home with home care services that we are recommending an RN as well as physical therapist to follow-up with the patient. She is recommended to ambulate with a rolling walker although patient is reluctant to do so this was discussed with her regarding as well. Patient to see her PCP Dr. Hailey Stuart in 1 to 2 days. We recommend to repeat labs in 2 to 3 days. Patient was due for her Prolixin injection on April 21 it was given on April 18 this was communicated with family who will relay this information to [facility] to get back on track. Hospital course This is a 57-year-old female with medical history significant for COPD, GERD, hypertension, seizure disorder and schizoaffective disorder. Patient sisters share legal guardianship with this patient. She was brought in by family who have been concern for altered mental status worse than baseline. Patient does have a history of ESBL urinary tract infection in the past and on admission her urine was found to be significantly abnormal. Patient was admitted to the hospital for UTI sepsis and altered mental status within consult placed infectious disease. Patient does intermittent catheterize at baseline and follows with a urologist outside of [facility]. There is concern for possible techniq ue and reusing supplies putting patient at any increased risk for urinary tract infection. She was placed on IV Invanz due to the history of the ESBL E. coli her urine culture did come back positive for Klebsiella pneumonia a and antibiotics on discharge recommended for oral treatment with ciprofloxacin. This was discussed with her family. Patient's mentation has improved she denies dysuria no urgency or frequency no nausea vomiting or diarrhea. She is not having any chest pain chest discomfort palpitations there is no shortness of breath no cough no fever no chills. Hemodynamically she is stable she is on room air she is afebrile. Her white blood cell count has been normal this admission most recently checked at 7.4. Her blood count is completely unremarkable. Patient was hyponatremic on admission of 149 with a BUN of 34 and a creatinine of 1.26 these have normalized with IV fluids. Her sodium is now 143, BUN of 20.9 and creatinine of 1.2. Her blood glucose is in the 150s with a hemoglobin A1c of 8.7. Patient will be discharged home, she does not have access to her house tonight as her family has her house [place] and is unable to come to town to picker and packer and take her home until tomorrow morning. Patient will be discharged in the morning the above-mentioned recommendations. Please see medication reconciliation for list of current medication. Thank you for allowing us to participate in the care of this patient. The impression and plan of care has been dictated by Mariana Zapata, Nurse Practitioner as directed. Dr. Bernardo MD I have performed a history and physical examination and medical decision making of this patient, discussed the same with the dictator, and agree with the dictators assessment and plan as written, documented as a scribe. Based on total visit time, I have performed more than 50% of this visit. Patient Condition at Discharge: Fair Plan - Discharge Summary Discharge Rx Participant: Yes New Discharge Prescriptions: New Ciprofloxacin HCl [Cipro] 500 mg PO BID 7 Days #14 tab Continue Tamsulosin [Flomax] 0.4 mg PO DAILY Apixaban [Eliquis] 5 mg PO BID Atorvastatin [Lipitor] 40 mg PO HS sitaGLIPtin [Januvia] 100 mg PO DAILY Ergocalciferol (Vitamin D2) [Drisdol (50,000 Iu)] 1,250 mcg PO Q7DAYS Metoprolol Tartrate [Lopressor] 25 mg PO BID Famotidine 40 mg PO BID Cholecalciferol [Vitamin D3 (25 Mcg = 1000 Iu)] 25 mcg PO DAILY Tiotropium Br/Olodaterol HCl [Stiolto Respimat Inhal Luxor] 2 puff INHALATION RT-DAILY metFORMIN HCL ER [Glucophage XR] 1,000 mg PO W/SUPPER fluPHENAZine decanoate [Prolixin Decanoate] 50 mg IM Q14D #0 fluvoxaMINE MALEATE [Luvox] 100 mg PO HS Albuterol Inhaler [Ventolin Hfa Inhaler] 2 puff INHALATION RT-Q6H PRN PRN Reason: Shortness Of Breath Glimepiride [Amaryl] 8 mg PO DAILY cloZAPine [Clozaril] 200 mg PO HS Budesonide/Formoterol Fumarate [Symbicort 160-4.5 Mcg Inhaler] 2 puff INHALATION RT-BID Magnesium Oxide [Mag-Ox] 400 mg PO BID Pantoprazole Sodium [Protonix] 40 mg PO BID Nicotine 21Mg/24Hr Patch [Habitrol] 1 patch TRANSDERM DAILY LORazepam [Ativan] 0.5 mg PO BID PRN PRN Reason: Anxiety Discharge Medication List Tamsulosin [Flomax] 0.4 mg PO DAILY 03/13/17 [History] Apixaban [Eliquis] 5 mg PO BID 10/24/20 [History] fluvoxaMINE MALEATE [Luvox] 100 mg PO HS 10/24/20 [History] Atorvastatin [Lipitor] 40 mg PO HS 10/19/21 [History] sitaGLIPtin [Januvia] 100 mg PO DAILY 03/19/22 [History] Albuterol Inhaler [Ventolin Hfa Inhaler] 2 puff INHALATION RT-Q6H PRN 11/02/22 [History] Ergocalciferol (Vitamin D2) [Drisdol (50,000 Iu)] 1,250 mcg PO Q7DAYS 11/02/22 [History] Metoprolol Tartrate [Lopressor] 25 mg PO BID 11/02/22 [History] Budesonide/Formoterol Fumarate [Symbicort 160-4.5 Mcg Inhaler] 2 puff INHALATION RT-BID 02/19/23 [History] Famotidine 40 mg PO BID 02/19/23 [History] Glimepiride [Amaryl] 8 mg PO DAILY 02/19/23 [History] Magnesium Oxide [Mag-Ox] 400 mg PO BID 02/19/23 [History] cloZAPine [Clozaril] 200 mg PO HS 02/19/23 [History] Cholecalciferol [Vitamin D3 (25 Mcg = 1000 Iu)] 25 mcg PO DAILY 04/18/23 [History] LORazepam [Ativan] 0.5 mg PO BID PRN 04/18/23 [History] Nicotine 21Mg/24Hr Patch [Habitrol] 1 patch TRANSDERM DAILY 04/18/23 [History] Pantoprazole Sodium [Protonix] 40 mg PO BID 04/18/23 [History] Tiotropium Br/Olodaterol HCl [Stiolto Respimat Inhal Luxor] 2 puff INHALATION RT-DAILY 04/18/23 [History] metFORMIN HCL ER [Glucophage XR] 1,000 mg PO W/SUPPER 04/18/23 [History] Ciprofloxacin HCl [Cipro] 500 mg PO BID 7 Days #14 tab 04/21/23 [Rx] fluPHENAZine decanoate [Prolixin Decanoate] 50 mg IM Q14D #0 04/21/23 [Rx] Follow up Appointment(s)/Referral(s): [facility], [NON-STAFF] - As Needed ([facility] will follow AFTER you follow up with .) Chevy Garcia MD [STAFF PHYSICIAN] - 1 Week Gamal Stuart DO [Primary Care Provider] - 1-2 days Ambulatory/Diagnostic Orders: Basic Metabolic Panel [LAB.AMB] Time Frame: 3 Days, Location: None Selected Patient Instructions/Handouts: Urinary Tract Infection in Women (DC), Taylor Catheter Placement and Care (DC), Urinary Leg Bag (GEN) Activity/Diet/Wound Care/Special Instructions: Recommend to continue on oral ciprofloxacin (antibiotic) for the next 7 days to complete antibiotic therapy for your urinary tract infection. Follow up with your urologist, Dr. Garcia a local urologist in [place] has also been recommended to you Follow up with Dr. Webb infectious disease in 1 week Keep your neurology follow up. Follow up with [facility]. Repeat labs in 2 to 3 days to monitor kidney function and electrolytes Need to use a rolling walker while up ambulating. Home with home care and physical therapy have been recommended. Activity limited until follow up with your Primary provider Dr. Stuart. Discharge Disposition: HOME WITH HOME HEALTH SERVICES
[2023-04-21 16:46] LABS: Glucose,Whole Blood 106 mg/dL (70-110)
[2023-04-21 20:05] LABS: Glucose,Whole Blood 312 mg/dL (70-110)
[2023-04-22 06:16] LABS: Glucose,Whole Blood 134 mg/dL (70-110)
[2023-04-22 08:31] VITALS: BP 116/68; PULSE 86; RESP 17; TEMP 97.5
--- NOTE | 2023-04-22 11:48 | P.PN ---
Subjective Progress Note Date: 04/22/23 Principal diagnosis: Reason for follow-up is urinary tract infection Patient is a 57-year-old female with a past medical history significant for diabetes mellitus hypertension COPD PE seizure disorder patient was brought into the hospital for evaluation of mental status changes, P did have a positive history of recurrent UTI with last urine culture positive for ESBL Klebsiella prompting this infectious disease consultation On today's evaluation that is 04/22/2023, the patient continues to be afebrile, the patient is on room air and breathing comfortably, the Pt denies having any chest pain or cough, the patient denies having any abdominal pain no vomiting or any diarrhea has been reported by the nursing staff, patient feeling better wants to go home. No new labs has been repeated today Objective - Vital Signs Vital signs: Vital Signs Temp 97.5 F L 04/22/23 07:13 Pulse 86 04/22/23 07:13 Resp 17 04/22/23 07:13 BP 116/68 04/22/23 07:13 Pulse Ox 94 L 04/22/23 08:30 FiO2 Intake & Output 04/21/23 04/22/23 04/22/23 18:59 06:59 18:59 Intake Total 180 Output Total 950 1200 Balance -770 -1200 Intake: Oral 180 Output: Urine 950 1200 Other: Voiding Method Indwelling Catheter Indwelling Catheter # Voids 1,000 # Bowel Movements 1 1 - Exam GENERAL DESCRIPTION: Middle-aged female lying in bed in no distress RESPIRATORY SYSTEM: Unlabored breathing , decreased breath sounds at bases HEART: S1 S2 regular rate and rhythm , ABDOMEN: Soft , no tenderness EXTREMITIES: No edema feet - Labs CBC & Chem 7: 04/19/23 12:25 04/21/23 06:41 Labs: Abnormal Lab Results - Last 24 Hours (Table) 04/21/23 04/22/23 Range/Units 20:04 06:15 POC Glucose (mg/dL) 312 H 134 H (70-110) mg/dL Microbiology - Last 24 Hours (Table) 04/18/23 13:30 Blood Culture - Preliminary Blood Assessment and Plan (1) UTI (urinary tract infection) Status: Acute Code(s): N39.0 - URINARY TRACT INFECTION, SITE NOT SPECIFIED SNOMED Code(s): 79788780 Plan: 1patient has been brought to the hospital for evaluation of mental status changes patient was noticed to be altered did have a foul-smelling urine positive UA concerning for symptomatic urinary infection with a last urine culture positive for ESBL Klebsiella, patient urine culture this admission is growing Klebsiella that is not any ESBL 2patient has shown clinical improvement blood culture has been negative, plan is to finish therapy with oral Cipro x 7 days and close outpatient follow-up Dictation was produced using [employer] dictation software. please excuse any grammatical, word or spelling errors. Time with Patient: Less than 30
[2023-04-25] MEDS ORDERED: ERGOCALCIFEROL 1,250 MCG (50,000 IU) CAPSULE PO SCH (09:00)
--- NOTE | 2023-04-26 07:02 | CDI ---
Documentation Clarification Form Date: 04/26/2023 06:43:40 AM From: Claudia Parrish Admit Date: 04/18/2023 02:46:00 PM Patient Name: Veronique Dukes Visit Number: [id number] Discharge Date: 04/22/2023 11:32:00 AM ATTENTION: The Clinical Documentation Specialists (CDI) and [facility] Coding Staff appreciate your assistance in clarifying documentation. Please respond to the clarification below the line at the bottom and electronically sign. The CDI & [facility] Coding staff will review the response and follow-up if needed. Please note: Queries are made part of the Legal Health Record. If you have any questions, please contact the author of this message via ITS. Dr. Kaela Chang, UTI is documented in the H&P and ED Note and patient uses self caths. Additional clarification regarding the etiology of the UTI is requested. History/Risk Factors: T2DM, schizoaffective disorder, hx of UTIs, hx of ESBL, COPD, HTN, cigarette smoker Clinical Indicators: Presented with altered mental status. Patient has been intermittentcatheterizeherself at home however family has concerns that she is not always sterile and that patient refuses supplies. Urinalysis: Cloudy, Protein-trace, Nitrate-positive, Leukocyte Esterase-large Urine culture: >1000,000 CFU/ml Klebsiella pneumoniae Lab results: WBC-2.3/7.4, Neutrophils %- 68/72, lactic acid-1.4 Treatment: Inserted Taylor catheter 04/18, IV antibiotics (Zoysn, Invanz, Rocephon) Please clarify the etiology of the UTI, if known: [ ] Self catheterizations [x ] UTI not related to self-catheterizations [ ] Other condition, please specify [ ] Unable to determine MTDD
== END 2023-04-22 11:32 | disposition home health service (06) | DRG 689 ==
LOC: EC 12:41 → 4SSUR 14:46
PROVIDERS: ADMIT Hospitalist; ATTEND Hospitalist
DX: N39.0 Urinary tract infection, site not specified (principal); G92.8 Other toxic encephalopathy; E87.20 Acidosis, unspecified; E87.8 Other disorders of electrolyte and fluid balance, not elsewhere classified; F25.9 Schizoaffective disorder, unspecified; E11.9 Type 2 diabetes mellitus without complications; B96.1 Klebsiella pneumoniae [K. pneumoniae] as the cause of diseases classified elsewhere; J44.9 Chronic obstructive pulmonary disease, unspecified; E04.1 Nontoxic single thyroid nodule; F31.9 Bipolar disorder, unspecified; I10 Essential (primary) hypertension; M19.90 Unspecified osteoarthritis, unspecified site; K21.9 Gastro-esophageal reflux disease without esophagitis; F17.210 Nicotine dependence, cigarettes, uncomplicated; Z79.01 Long term (current) use of anticoagulants; Z79.51 Long term (current) use of inhaled steroids; Z79.84 Long term (current) use of oral hypoglycemic drugs; Z79.899 Other long term (current) drug therapy; Z86.19 Personal history of other infectious and parasitic diseases; Z86.711 Personal history of pulmonary embolism; Z86.718 Personal history of other venous thrombosis and embolism; Z87.440 Personal history of urinary (tract) infections; Z96.0 Presence of urogenital implants; Z88.8 Allergy status to other drugs, medicaments and biological substances
CPT/HCPCS: 36415; 70450; 71045; 80048; 80053; 81001; 82140; 83036; 83605; 83735; 85025; 85610; 85730; 87040; 87077; 87086; 87186; 87636; 93005; 94640; 94760; 96361; 96365; 96366; 96367; 99285

== ENCOUNTER → 2023-05-23 | Outpatient (CLI) | payer MEDICARE, OTHER ==
--- NOTE | 2023-05-23 16:19 | CTL ---
EXAMINATION TYPE: CT Low Dose Lung DATE OF EXAM: 05/23/2023 4:05 PM CLINICAL INDICATION:Female, 57 years old with history of Z12.2 SCREENING; history of smoker , history of tobacco use. COMPARISON: 10/19/2021 TECHNIQUE: Multiple axial non-contrast scans were obtained from approximately the lung apices through the upper abdomen. Coronal and sagittal reformatted images were obtained. Low dose technique was uti lized. CT DLP: 81.7 mGycm, Automated exposure control for dose reduction was used. CT Contrast: Contrast used: None Oral contrast used: None FINDINGS: ======== Lack of intravenous contrast and low dose technique limits the evaluation of the vascular and soft ti ssue structures. LUNGS: No evidence of pulmonary fibrosis. No evidence of focal consolidation, pneumothorax or pleural effusion. Nodules: RUL: None. RML: None. RLL: None. DWAYNE: Atelectasis changes along the major fissure LLL: None. AIRWAY: Patent and unremarkable. HEART: Size within normal limits. MEDIASTINUM: No gross evidence of adenopathy. VASCULATURE: No aortic aneurysm. MUSCULOSKELETAL: No acute osseous abnormalities SOFT TISSUES/LYMPH NODES: Unremarkable. LOWER NECK: No significant findings. UPPER ABDOMEN: No significant findings. A splenule is present. IMPRESSION: 1. No clinically significant pulmonary nodules. 2. Mild emphysema. CT LUNG RAD AND CT CHEST RECOMMENDATION: Lung-Rad 1 Negative: Continue annual screening with LDCT in 12 months. S Modifier (other clinically significant findings): None Recommend smoking cessation (if current smoker), or continuation of smoking cessation (if prior smoke r). Annual screening for lung cancer with low-dose computed tomography is recommended in adults ages 55 to 77 years who have a 30 pack-year smoking history and currently smoke or have quit within the pa st 15 years. Screening should be discontinued once a person has not smoked for 15 years or develops a health problem that substantially limits life expectancy or the ability or willingness to have curat nasim lung surgery. Lung rads 2021 [email or web address]
== END | disposition home or self-care (01) ==
LOC: RADCTMAIN 15:33
PROVIDERS: ATTEND Internal Medicine
DX: Z12.2 Encounter for screening for malignant neoplasm of respiratory organs (principal); J43.9 Emphysema, unspecified; Z87.891 Personal history of nicotine dependence
CPT/HCPCS: 71271

== ENCOUNTER → 2023-07-06 | Outpatient (CLI) | payer MEDICARE, OTHER ==
--- NOTE | 2023-07-09 15:01 | MM ---
Reason for Exam: Screening (asymptomatic). Last mammogram was performed 3 year(s) and 0 month(s) ago. Patient History: Menarche at age 12. First Full-Term at age 21. Postmenopausal. Hormonal Contraceptives for 6 months starting at age 15. 1995, Bilateral Reduction. 01/28/2015, Benign Core Biopsy on the left side. 05/03/2011, Benign Core Biopsy on the left side. 05/03/2011, Benign Core Biopsy on the right side. Risk Values: Kenisha 5 year model risk: 1.7%. NCI Lifetime model risk: 9.1%. Prior Study Comparison: 03/05/2018 Bilateral Screening Mammogram, LOCATED WITHIN [facility]. 04/19/2019 Bilateral Screening Mammogram, LOCATED WITHIN [facility]. 06/30/2020 Bilateral Screening Mammogram, LOCATED WITHIN [facility]. Tissue Density: There are scattered areas of fibroglandular density. Findings: Analyzed By CAD. Chronic bilateral nodularity. One microclip on the right into microclips on the left from prior biopsies. There is no suspicious group of microcalcifications or new suspicious mass in either breast. Overall Assessment: Benign, BI-RAD 2 Management: Screening Mammogram of both breasts in 1 year. . Patient should continue monthly self-breast exams. A clinical breast exam by your physician is recommended on an annual basis. This exam should not preclude additional follow-up of suspicious palpable abnormalities. Note on Kenisha scores and lifetime risk: 1. A Kenisha score greater than 3% is considered moderate risk. If this is the case, consider specialist referral to assess eligibility for a risk reducing agent. 2. If overall lifetime risk for the development of breast cancer is 20% or higher, the patient may qualify for future screening with alternating mammogram and breast MRI. Electronically signed and approved by: Josh Ramirez M.D. Radiologist
== END | disposition home or self-care (01) ==
LOC: RADMAMWWP 09:30
PROVIDERS: ATTEND Family Medicine
DX: Z12.31 Encounter for screening mammogram for malignant neoplasm of breast (principal); Z78.0 Asymptomatic menopausal state
CPT/HCPCS: 77067

== ENCOUNTER 2023-08-15 11:59 | Inpatient (IN) | payer OTHER ==
[2023-08-15] MEDS: SODIUM CHLORIDE 0.9% 1,000 ML IV ONE (12:36)
[2023-08-15 12:46] LABS: Basophils % (A) 0 %; Eosinophils % (A) 0 %; HCT 36.3 % (34.0-46.0); HGB 11.6 gm/dL (11.4-16.0); Lymphocytes # (A) 1.3 k/uL (1.0-4.8); Lymphocytes % (A) 18 %; MCH 26.6 pg (25.0-35.0); Mean Platelet Volume 8.8; Monocytes # (A) 0.4 k/uL (0-1.0); Monocytes % (A) 6 %; Neutrophils # (A) 5.2 k/uL (1.3-7.7); Neutrophils % (A) 75 %; Platelet Count 180 k/uL (150-450); RBC 4.38 m/uL (3.80-5.40); RDW 15.5 % (11.5-15.5)
[2023-08-15 12:59] LABS: ALT 25 U/L (4-34); African American GFR (CKD) 76 (>60 ml/min/1.73 sqM); Albumin 4.4 g/dL (3.5-5.0); Anion Gap 8 mmol/L; Blood Urea Nitrogen 20 mg/dL (7-17); Calcium 9.3 mg/dL (8.4-10.2); Carbon Dioxide 23 mmol/L (22-30); Chloride 106 mmol/L (98-107); Glucose 198 mg/dL (74-99); Non-African American GFR(CKD) 66 (>60 ml/min/1.73 sqM); Sodium 137 mmol/L (137-145); Total Bilirubin 0.6 mg/dL (0.2-1.3); Total Protein 6.7 g/dL (6.3-8.2)
[2023-08-15 13:12] LABS: AST 36 U/L (14-36); Alkaline Phosphatase 76 U/L (38-126); Magnesium 1.7 mg/dL (1.6-2.3); Potassium 4.5 mmol/L (3.5-5.1)
--- NOTE | 2023-08-15 13:16 | ED ---
Psych HPI - General Chief Complaint: Psychiatric Symptoms Stated Complaint: mental health Time Seen by Provider: 08/15/23 12:05 Source: patient, EMS, RN notes reviewed Mode of arrival: EMS Limitations: no limitations - History of Present Illness Initial Comments: 57-year-old female presents emergency department from home via EMS as home health care nurse sent patient for possible medication noncompliance. Patient reportedly has not taken meds since last week she reports she had vomited them up or possibly threw them out. Patient has a history UTIs, frequent ER visits and hospital admissions. Patient denies any physical manage she states she did have some nausea no chest pain shortness of breath patient did have a change in behavior. - Related Data Home Medications Medication Instructions Recorded Confirmed Tamsulosin [Flomax] 0.4 mg PO AC-SUPPER 03/13/17 08/15/23 Apixaban [Eliquis] 5 mg PO BID 10/24/20 08/15/23 fluvoxaMINE MALEATE [Luvox] 100 mg PO HS 10/24/20 08/15/23 Atorvastatin [Lipitor] 40 mg PO HS 10/19/21 08/15/23 sitaGLIPtin [Januvia] 100 mg PO DAILY 03/19/22 08/15/23 Albuterol Inhaler [Ventolin Hfa 2 puff INHALATION RT-QID PRN 11/02/22 08/15/23 Inhaler] Ergocalciferol (Vitamin D2) 1,250 mcg PO Q14D 11/02/22 08/15/23 [Drisdol (50,000 Iu)] Metoprolol Tartrate [Lopressor] 25 mg PO BID 11/02/22 08/15/23 Budesonide/Formoterol Fumarate 2 puff INHALATION RT-BID 02/19/23 08/15/23 [Symbicort 160-4.5 Mcg Inhaler] Glimepiride [Amaryl] 4 mg PO BID 02/19/23 08/15/23 Magnesium Oxide [Mag-Ox] 800 mg PO DAILY 02/19/23 08/15/23 cloZAPine [Clozaril] 250 mg PO HS 02/19/23 08/15/23 LORazepam [Ativan] 0.5 mg PO BID PRN 04/18/23 08/15/23 Pantoprazole Sodium [Protonix] 40 mg PO BID 04/18/23 08/15/23 metFORMIN HCL ER [Glucophage XR] 500 mg PO BID 04/18/23 08/15/23 Cefdinir [Omnicef] 300 mg PO BID 08/15/23 08/15/23 Previous Rx's Medication Instructions Recorded fluPHENAZine decanoate [Prolixin 50 mg IM Q14D #0 04/21/23 Decanoate] Allergies Allergy/AdvReac Type Severity Reaction Status Date / Time haloperidol [From Haldol] AdvReac Muscles Verified 08/15/23 13:22 freeze up in arms and hands haloperidol lactate AdvReac Muscles Verified 08/15/23 13:22 [From Haldol] freeze up in arms and hands Review of Systems ROS Statement: Those systems with pertinent positive or pertinent negative responses have been documented in the HPI. ROS Other: All systems not noted in ROS Statement are negative. Past Medical History Past Medical History: COPD, Diabetes Mellitus, GERD/Reflux, Hypertension, Osteoarthritis (OA), Pulmonary Embolus (PE), Seizure Disorder Additional Past Medical History / Comment(s): Hx of colon polyps, neuorgenic bladder, anemia, self caths at home, thyroid nodule, UTI with hospital admission september 2021- klebsiella treated with ceftin History of Any Multi-Drug Resistant Organisms: ESBL Date of last positivie culture/infection: 12/01/22 MDRO Source:: Urine Past Surgical History: Back Surgery, Breast Surgery, Ear Surgery Additional Past Surgical History / Comment(s): hunter breast reduction, breast biopsy, bladder stimulator implant, skin grafts to ear Past Anesthesia/Blood Transfusion Reactions: No Reported Reaction Past Psychological History: Bipolar, Depression, Schizoaffective Disorder Smoking Status: Current some day smoker Past Alcohol Use History: None Reported Past Drug Use History: None Reported - Past Family History Father Family Medical History: Cancer Additional Family Medical History / Comment(s): lung Sister(s) Family Medical History: Cancer Additional Family Medical History / Comment(s): ovarian General Exam Limitations: altered mental status General appearance: alert, in no apparent distress Head exam: Present: atraumatic, normocephalic, normal inspection Eye exam: Present: normal appearance, PERRL, EOMI. Absent: scleral icterus, conjunctival injection, periorbital swelling ENT exam: Present: normal exam, mucous membranes moist Neck exam: Present: normal inspection, full ROM. Absent: tenderness, meningis mus, lymphadenopathy Respiratory exam: Present: normal lung sounds bilaterally. Absent: respiratory distress, wheezes, rales, rhonchi, stridor Cardiovascular Exam: Present: normal rhythm, tachycardia, normal heart sounds. Absent: systolic murmur, diastolic murmur, rubs, gallop, clicks GI/Abdominal exam: Present: soft, normal bowel sounds. Absent: distended, tenderness, guarding, rebound, rigid Neurological exam: Present: alert, oriented X3 Skin exam: Present: warm, dry, intact, normal color. Absent: rash Course Vital Signs 08/15/23 08/15/23 08/15/23 12:01 13:50 14:43 Temperature 98.7 F Pulse Rate 128 H 120 H 121 H Respiratory 18 18 18 Rate Blood Pressure 131/96 136/89 140/106 O2 Sat by Pulse 98 94 L 95 Oximetry Medical Decision Making - Medical Decision Making Was pt. sent in by a medical professional or institution (, PA, STERILIZER OPERATOR, urgent care, hospital, or penitentiary...) When possible be specific @ -No Did you speak to anyone other than the patient for history (EMS, parent, family, police, friend...)? What history was obtained from this source @ -No Did you review nursing and triage notes (agree or disagree)? Why? @ -I reviewed and agree with nursing and triage notes Were old charts reviewed (outside hosp., previous admission, EMS record, old EKG, old radiological studies, urgent care reports/EKG's, penitentiary records)? Report findings @ -No old charts were reviewed Differential Diagnosis (chest pain, altered mental status, abdominal pain women, abdominal pain men, vaginal bleeding, weakness, fever, dyspnea, syncope, headache, dizziness, GI bleed, back pain, seizure, CVA, palpatations, mental health, musculoskeletal)? @ -Differential Mental Health Depression, anxiety, bipolar, psychosis, schizophrenia, borderline personality, situational depression, adjustment disorder, behavioral disorder, brain tumor, malingering, substance abuse, encephalopathy, medication reaction, dementia, hypothyroidism, degenerative neurologic disorder, lupus.... This is not meant to be all-inclusive list EKG interpreted by me (3pts min.). @ -None X-rays interpreted by me (1pt min.). @ -None done CT interpreted by me (1pt min.). @ -None done U/S interpreted by me (1pt. min.). @ -None done What testing was considered but not performed or refused? (CT, X-rays, U/S, labs)? Why? @ -None What meds were considered but not given or refused? Why? @ -None Did you discuss the management of the patient with other professionals (prof shelton i.e. , PA, STERILIZER OPERATOR, lab, RT, psych nurse, social media content manager, coal hauler operator, teacher, animal control officer, onsite case manager)? Give summary @ -Discussed case with [facility] for admission covering for Dr. Stuart regarding UTI altered mental status, psychosis Was smoking cessation discussed for >3mins.? @ -No Was critical care preformed (if so, how long)? @ -No Were there social determinants of health that impacted care today? How? (Homelessness, low income, unemployed, alcoholism, drug addiction, transportation, low edu. Level, literacy, decrease access to med. care, alf, rehab)? @ -No Was there de-escalation of care discussed even if they declined (Discuss DNR or withdrawal of care, Hospice)? DNR status @ -No What co-morbidities impacted this encounter? (DM, HTN, Smoking, COPD, CAD, Cancer, CVA, ARF, Chemo, Hep., AIDS, mental health diagnosis, sleep apnea, morbid obesity)? @ -None Was patient admitted / discharged? Hospital course, mention meds given and route, prescriptions, significant lab abnormalities, going to OR and other pertinent info. @ -Admitted patient was started on Rocephin patient has a history of ESBL. Patient noncompliant medications, acute psychosis. Patient will have psychiatric consult with Dr. Richter patient did have blood cultures drawn. Undiagnosed new problem with uncertain prognosis? @ -No Drug Therapy requiring intensive monitoring for toxicity (Heparin, Nitro, Insulin, Cardizem)? @ -No Were any procedures done? @ -No Diagnosis/symptom? @ -UTI, psychosis Acute, or Chronic, or Acute on Chronic? @ -Acute Uncomplicated (without systemic symptoms) or Complicated (systemic symptoms)? @ -Complicated Side effects of treatment? @ -No Exacerbation, Progression, or Severe Exacerbation? @ -No Poses a threat to life or bodily function? How? (Chest pain, [place], [place], pneumonia, PE, COPD, DKA, ARF, appy, cholecystitis, CVA, Diverticulitis, Homicidal, Suicidal, threat to staff... and all critical care pts) @ -No - Lab Data Result diagrams: 08/15/23 12:33 08/15/23 12:33 Lab Results 08/15/23 08/15/23 08/15/23 Range/Units 12:33 12:33 12:33 WBC 7.0 (3.8-10.6) k/uL RBC 4.38 (3.80-5.40) m/uL Hgb 11.6 (11.4-16.0) gm/dL Hct 36.3 (34.0-46.0) % MCV 83.0 (80.0-100.0) fL MCH 26.6 (25.0-35.0) pg MCHC 32.0 (31.0-37.0) g/dL RDW 15.5 (11.5-15.5) % Plt Count 180 (150-450) k/uL MPV 8.8 Neutrophils % 75 % Lymphocytes % 18 % Monocytes % 6 % Eosinophils % 0 % Basophils % 0 % Neutrophils # 5.2 (1.3-7.7) k/uL Lymphocytes # 1.3 (1.0-4.8) k/uL Monocytes # 0.4 (0-1.0) k/uL Eosinophils # 0.0 (0-0.7) k/uL Basophils # 0.0 (0-0.2) k/uL Sodium 137 (137-145) mmol/L Potassium 4.5 (3.5-5.1) mmol/L Chloride 106 (98-107) mmol/L Carbon Dioxide 23 (22-30) mmol/L Anion Gap 8 mmol/L BUN 20 H (7-17) mg/dL Creatinine 0.95 (0.52-1.04) mg/dL Est GFR (CKD-EPI)AfAm 76 (>60 ml/min/1.73 sqM) Est GFR (CKD-EPI)NonAf 66 (>60 ml/min/1.73 sqM) Glucose 198 H (74-99) mg/dL Calcium 9.3 (8.4-10.2) mg/dL Magnesium 1.7 (1.6-2.3) mg/dL Total Bilirubin 0.6 (0.2-1.3) mg/dL AST 36 (14-36) U/L ALT 25 (4-34) U/L Alkaline Phosphatase 76 (38-126) U/L Total Protein 6.7 (6.3-8.2) g/dL Albumin 4.4 (3.5-5.0) g/dL TSH 1.130 (0.465-4.680) mIU/L Urine Color Colorless Urine Appearance Cloudy H (Clear) Urine pH 5.5 (5.0-8.0) Ur Specific [place] 1.009 (1.001-1.035) Urine Protein Trace H (Negative) Urine Glucose (UA) Negative (Negative) Urine Ketones Negative (Negative) Urine Blood Small H (Negative) Urine Nitrite Positive H (Negative) Urine Bilirubin Negative (Negative) Urine Urobilinogen <2.0 (<2.0) mg/dL Ur Leukocyte Esterase Large H (Negative) Urine RBC 3 (0-5) /hpf Urine WBC 82 H (0-5) /hpf Urine WBC Clumps Moderate H (None) /hpf Urine Bacteria Occasional H (None) /hpf Hyaline Casts 1 (0-2) /lpf Urine Mucus Rare H (None) /hpf Urine Opiates Screen Not Detected (NotDetected) Ur Oxycodone Screen Not Detected (NotDetected) Urine Methadone Screen Not Detected (NotDetected) Ur Barbiturates Screen Not Detected (NotDetected) U Tricyclic Antidepress Not Detected (NotDetected) Ur Phencyclidine Scrn Not Detected (NotDetected) Ur Amphetamines Screen Not Detected (NotDetected) U Methamphetamines Scrn Not Detected (NotDetected) U Benzodiazepines Scrn Not Detected (NotDetected) Urine Cocaine Screen Not Detected (NotDetected) U Marijuana (THC) Screen Not Detected (NotDetected) - EKG Data -: EKG Interpreted by Me EKG Comments: EKG performed at 12: 38 sinus tachycardia with short MI rate of 117 QRS 108 QT/QTc 341/410 Disposition Clinical Impression: UTI (urinary tract infection), Altered mental status, Psychosis Disposition: ADMITTED IP TO THIS [facility] Condition: Fair Referrals: Gamal Stuart DO [Primary Care Provider] - 1-2 days Time of Disposition: 14:20
[2023-08-15 13:26] LABS: Appearance,Urine Cloudy (Clear); Bacteria,Urine Occasional /hpf; Bilirubin,Urine Negative (Negative); Blood,Urine Small (Negative); Color,Urine Colorless; Glucose,Urine (UA) Negative (Negative); Hyaline Casts,Urine 1 /lpf (0-2); Ketones,Urine Negative (Negative); Leukocyte Esterase,Urine Large (Negative); Mucus,Urine Rare /hpf; Nitrite,Urine Positive (Negative); PH, Urine 5.5 (5.0-8.0); Protein,Urine Trace (Negative); RBC,Urine 3 /hpf (0-5); Specific Gravity,Urine 1.009 (1.001-1.035); Urobilinogen,Urine <2.0 mg/dL (<2.0); WBC,Urine 82 /hpf (0-5)
[2023-08-15 13:43] LABS: Amphetamine Screen,Urine Not Detected (NotDetected); Barbiturate Screen,Urine Not Detected (NotDetected); Benzodiazepines Screen,Urine Not Detected (NotDetected); Cocaine Screen,Urine Not Detected (NotDetected); Methadone Screen, Urine Not Detected (NotDetected); Opiate Screen,Urine Not Detected (NotDetected); Oxycodone Screen, Urine Not Detected (NotDetected); Phencyclidine Screen,Urine Not Detected (NotDetected); Tricyclic Antidepressant,Urine Not Detected (NotDetected); Urn Cannabinoid Scrn Not Detected (NotDetected)
[2023-08-15] MEDS ORDERED: NALOXONE 0.4 MG/ML 1 ML VIAL IV PRN (15:18)
[2023-08-15] MEDS: SODIUM CHLORIDE 0.9% 1,000 ML IV SCH (15:46)
[2023-08-15] MEDS ORDERED: DEXTROSE 50% SYRINGE 50 ML IVP PRN ×2 (16:38)
--- NOTE | 2023-08-15 16:41 | P.HPIM ---
History of Present Illness H&P Date: 08/15/23 57 year old M with PMH of COPD, DM, GERD, HTN, PE, seizure disorder, bipolar and schizoaffective disorder presents to the ED for behavioral disturbances. Sent in by home health care nurse. Limited history majority of history is obtained from documentation. Per RN, guardian suspects patient has been non compliant with her medications. She does report dysuria. She denies any other symptoms. In the ED she underwent extensive evaluation. BP 130/110, HR 117, RR 18, T 98.7F, 97% on RA. CBC and CMP performed significant for BUN 20, glu 198. Mag 1.7. TSH 1.13. UA positive nitrate. UDS negative. EKG sinus tachycardia. General: non toxic, no distress, appears at stated age Derm: warm, dry Head: atraumatic, normocephalic, symmetric Eyes: EOMI, no lid lag, anicteric sclera Mouth: no lip lesion, mucus membranes moist Cardiovascular: S1S2 regular, no murmur Lungs: Decreased BS bilateral, no rhonchi, no rales , no accessory muscle use Abdominal: soft, nontender to palpation, no guarding, no appreciable organomegaly Ext: no gross muscle atrophy, no edema, no contractures Neuro: no focal neuro deficits Psych: Flat affect, AO x 2, slow to respond Based on my assessment of this patient, this patient meets a high complexity level of care. Acute metabolic encephalopathy multifactorial likely due to UTI and non compliance with psychotropic medications Sinus tachycardia: Does not meet sepsis criteria. Metoprolol 25 mg PO BID. Hypertension: Metoprolol as above. Diabetes mellitus with hyperglycemia History of bipolar and schizoaffective disorder: Mediation non compliance. Clozapine 250 mg PO QHS. Luvox 100 mg PO QHS. Ativan 0.5 mg PO BID PRN anxiety. Chronic COPD: Symbicort 2 puff BID. DuoNeb QID PRN for SOB/wheezing. GERD: Protonix 40 mg PO BID. History of PE: Eliquis 5 mg PO BID. CODE STATUS: FULL DVT Prophylaxis: Eliquis GI Prophylaxis: Protonix PO Designated medical POA if patient is not able to make medical decisions for themselves: I have reviewed the following design consultant notes: ED note I have reviewed the results of the following tests: As above I have ordered the following tests: As above I have discussed the care of this patient with the following independent historian: I have independently interpreted the following test below: I have discussed the management of this patient with the following physician: Past Medical History Past Medical History: COPD, Diabetes Mellitus, GERD/Reflux, Hypertension, Osteoarthritis (OA), Pulmonary Embolus (PE), Seizure Disorder Additional Past Medical History / Comment(s): Hx of colon polyps, neuorgenic bladder, anemia, self caths at home, thyroid nodule, UTI with hospital admission september 2021- klebsiella treated with ceftin History of Any Multi-Drug Resistant Organisms: ESBL Date of last positivie culture/infection: 12/01/22 MDRO Source:: Urine Past Surgical History: Back Surgery, Breast Surgery, Ear Surgery Additional Past Surgical History / Comment(s): hunter breast reduction, breast biopsy, bladder stimulator implant, skin grafts to ear Past Anesthesia/Blood Transfusion Reactions: No Reported Reaction Past Psychological History: Bipolar, Depression, Schizoaffective Disorder Smoking Status: Current some day smoker Past Alcohol Use History: None Reported Past Drug Use History: None Reported - Past Family History Father Family Medical History: Cancer Additional Family Medical History / Comment(s): lung Sister(s) Family Medical History: Cancer Additional Family Medical History / Comment(s): ovarian Medications and Allergies Home Medications Medication Instructions Recorded Confirmed Type Tamsulosin [Flomax] 0.4 mg PO AC-SUPPER 03/13/17 08/15/23 History Apixaban [Eliquis] 5 mg PO BID 10/24/20 08/15/23 History fluvoxaMINE MALEATE [Luvox] 100 mg PO HS 10/24/20 08/15/23 History Atorvastatin [Lipitor] 40 mg PO HS 10/19/21 08/15/23 History sitaGLIPtin [Januvia] 100 mg PO DAILY 03/19/22 08/15/23 History Albuterol Inhaler [Ventolin Hfa 2 puff INHALATION RT-QID PRN 11/02/22 08/15/23 History Inhaler] Ergocalciferol (Vitamin D2) 1,250 mcg PO Q14D 11/02/22 08/15/23 History [Drisdol (50,000 Iu)] Metoprolol Tartrate [Lopressor] 25 mg PO BID 11/02/22 08/15/23 History Budesonide/Formoterol Fumarate 2 puff INHALATION RT-BID 12/24/23 06/18/24 History [Symbicort 160-4.5 Mcg Inhaler] Glimepiride [Amaryl] 4 mg PO BID 02/19/23 08/15/23 History Magnesium Oxide [Mag-Ox] 800 mg PO DAILY 02/19/23 08/15/23 History cloZAPine [Clozaril] 250 mg PO HS 02/19/23 08/15/23 History LORazepam [Ativan] 0.5 mg PO BID PRN 04/18/23 08/15/23 History Pantoprazole Sodium [Protonix] 40 mg PO BID 04/18/23 08/15/23 History metFORMIN HCL ER [Glucophage XR] 500 mg PO BID 04/18/23 08/15/23 History fluPHENAZine decanoate [Prolixin 50 mg IM Q14D #0 04/21/23 08/15/23 Rx Decanoate] Cefdinir [Omnicef] 300 mg PO BID 08/15/23 08/15/23 History Allergies Allergy/AdvReac Type Severity Reaction Status Date / Time haloperidol [From Haldol] AdvReac Muscles Verified 08/15/23 13:22 freeze up in arms and hands haloperidol lactate AdvReac Muscles Verified 08/15/23 13:22 [From Haldol] freeze up in arms and hands Physical Exam Vitals: Vital Signs Temp Pulse Resp BP Pulse Ox 08/15/23 16:21 117 H 18 130/110 97 08/15/23 15:40 117 H 18 150/104 93 L 08/15/23 14:43 121 H 18 140/106 95 08/15/23 13:50 120 H 18 136/89 94 L 08/15/23 12:01 98.7 F 128 H 18 131/96 98 Intake and Output 08/15/23 08/15/23 08/15/23 06:59 14:59 22:59 Other: Weight 74.843 kg Results CBC & Chem 7: 08/15/23 12:33 08/15/23 12:33 Labs: Abnormal Lab Results - Last 24 Hours (Table) 08/15/23 08/15/23 Range/Units 12:33 12:33 BUN 20 H (7-17) mg/dL Glucose 198 H (74-99) mg/dL Urine Appearance Cloudy H (Clear) Urine Protein Trace H (Negative) Urine Blood Small H (Negative) Urine Nitrite Positive H (Negative) Ur Leukocyte Esterase Large H (Negative) Urine WBC 82 H (0-5) /hpf Urine WBC Clumps Moderate H (None) /hpf Urine Bacteria Occasional H (None) /hpf Urine Mucus Rare H (None) /hpf
[2023-08-15] MEDS: INSULIN ASPART (NovoLOG) 100 UNIT/ML VIAL SQ SCH (17:00)
[2023-08-15 17:01] LABS: Glucose,Whole Blood 125 mg/dL (70-110)
[2023-08-15] MEDS: TAMSULOSIN 0.4 MG CAP.ER.24H PO SCH (17:03)
[2023-08-15] MEDS: METOPROLOL TARTRATE 25 MG TAB PO SCH (17:03)
[2023-08-15 19:33] LABS: Glucose,Whole Blood 114 mg/dL (70-110)
[2023-08-15] MEDS: SYMBICORT 160-4.5 MCG INHALER INHALATION SCH (19:36)
[2023-08-15] MEDS ORDERED: METOPROLOL TARTRATE 25 MG TAB PO SCH (21:00)
[2023-08-15 21:16] LABS: Glucose,Whole Blood 133 mg/dL (70-110)
[2023-08-15] MEDS: PANTOPRAZOLE 40 MG TABLET PO SCH (22:09)
[2023-08-15] MEDS: APIXABAN 5 MG TAB PO SCH (22:09)
[2023-08-15] MEDS: ATORVASTATIN 40 MG TAB PO SCH (22:10)
[2023-08-15] MEDS: cloZAPine 100 MG TAB PO SCH (22:10)
[2023-08-16 05:43] LABS: Glucose,Whole Blood 203 mg/dL (70-110)
[2023-08-16] MEDS: LORazepam 0.5 MG TAB PO PRN (09:41)
--- NOTE | 2023-08-16 10:58 | US ---
EXAMINATION TYPE: US kidneys/renal and bladder DATE OF EXAM: 08/16/2023 COMPARISON: CT & US CLINICAL INDICATION: Female, 57 years old with history of uti and bacteremia; UTI EXAM MEASUREMENTS: Right Kidney: 10.5 x 5.4 x 5.0 cm Left Kidney: 9.1 x 4.9 x 4.3 cm Difficult exam- pt immobile, scanned in recliner Right Kidney: Hypoechoic lesion mid, no evidence of hydro, lower pole gassed out Left Kidney: Limited views show atrophic in appearance as visualized on prior CT Bladder: Unable to visualize due to pt position There is no evidence for hydronephrosis at this point in time. No nephrolithiasis is seen. The urin stephen bladder is anechoic. Bilateral ureteral jets are seen. IMPRESSION: 1. Atrophic changes noted. 2. Simple cyst right kidney.
[2023-08-16] MEDS: MEROPENEM 1 GM in SODIUM CHLORIDE 0.9% 100 ML IVPB SCH (11:30)
--- NOTE | 2023-08-16 12:15 | P.PN ---
Subjective Progress Note Date: 08/16/23 57 year old M with PMH of COPD, DM, GERD, HTN, PE, seizure disorder, bipolar and schizoaffective disorder presents to the ED for behavioral disturbances. Sent in by home health care nurse. Limited history majority of history is obtained from documentation. Per RN, guardian suspects patient has been non compliant with her medications. She does report dysuria. She denies any other symptoms. In the ED she underwent extensive evaluation. BP 130/110, HR 117, RR 18, T 98.7F, 97% on RA. CBC and CMP performed significant for BUN 20, glu 198. Mag 1.7. TSH 1.13. UA positive nitrate. UDS negative. EKG sinus tachycardia. 08/15 Patient was seen and examined. More vocal today. She has no complaints. BCx + Klebsiella ESBL. Started on Meropenem 1g IV TID. General: non toxic, no distress, appears at stated age Derm: warm, dry Head: atraumatic, normocephalic, symmetric Eyes: EOMI, no lid lag, anicteric sclera Mouth: no lip lesion, mucus membranes moist Cardiovascular: S1S2 regular, no murmur Lungs: Decreased BS bilateral, no rhonchi, no rales , no accessory muscle use Abdominal: soft, nontender to palpation, no guarding, no appreciable organomegaly Ext: no gross muscle atrophy, no edema, no contractures Neuro: no focal neuro deficits Psych: Flat affect, AO x 2, slow to respond Based on my assessment of this patient, this patient meets a high complexity level of care. Acute metabolic encephalopathy multifactorial likely due to UTI, Klebsiella bacteremia, and non compliance with psychotropic medications Klebsiella bacteremia: Start Meropenem 1g IV TID. Repeat BCx. Consult ID. Sinus tachycardia: Does not meet sepsis criteria. Metoprolol 25 mg PO BID. Hypertension: Metoprolol as above. Diabetes mellitus with hyperglycemia History of bipolar and schizoaffective disorder: Mediation non compliance. Clozapine 250 mg PO QHS. Luvox 100 mg PO QHS. Ativan 0.5 mg PO BID PRN anxiety. Chronic COPD: Symbicort 2 puff BID. DuoNeb QID PRN for SOB/wheezing. GERD: Protonix 40 mg PO BID. History of PE: Eliquis 5 mg PO BID. CODE STATUS: FULL DVT Prophylaxis: Eliquis GI Prophylaxis: Protonix PO Designated medical POA if patient is not able to make medical decisions for themselves: I have reviewed the following design sales consultant notes: I have reviewed the results of the following tests: BCx. I have ordered the following tests: CBC, BMP, repeat BCx. I have discussed the care of this patient with the following independent historian: ALLISON I have independently interpreted the following test below: I have discussed the management of this patient with the following physician: Objective - Vital Signs Vital signs: Vital Signs Temp 97.2 F L 08/16/23 07:00 Pulse 110 H 08/16/23 07:00 Resp 22 08/16/23 07:00 BP 124/87 08/16/23 07:00 Pulse Ox 96 08/16/23 07:00 FiO2 Intake & Output 08/15/23 08/16/23 08/16/23 18:59 06:59 18:59 Intake Total 118 Output Total 284 Balance -284 118 Weight 74.843 kg 74.843 kg Intake: Oral 118 Output: Post Void Residual 284 Other: # Voids 2 - Labs CBC & Chem 7: 08/15/23 12:33 08/15/23 12:33 Labs: Abnormal Lab Results - Last 24 Hours (Table) 08/15/23 08/15/23 08/15/23 Range/Units 12:33 12:33 17:00 BUN 20 H (7-17) mg/dL Glucose 198 H (74-99) mg/dL POC Glucose (mg/dL) 125 H (70-110) mg/dL Urine Appearance Cloudy H (Clear) Urine Protein Trace H (Negative) Urine Blood Small H (Negative) Urine Nitrite Positive H (Negative) Ur Leukocyte Esterase Large H (Negative) Urine WBC 82 H (0-5) /hpf Urine WBC Clumps Moderate H (None) /hpf Urine Bacteria Occasional H (None) /hpf Urine Mucus Rare H (None) /hpf 08/15/23 08/15/23 08/16/23 Range/Units 19:31 21:13 05:40 BUN (7-17) mg/dL Glucose (74-99) mg/dL POC Glucose (mg/dL) 114 H 133 H 203 H (70-110) mg/dL Urine Appearance (Clear) Urine Protein (Negative) Urine Blood (Negative) Urine Nitrite (Negative) Ur Leukocyte Esterase (Negative) Urine WBC (0-5) /hpf Urine WBC Clumps (None) /hpf Urine Bacteria (None) /hpf Urine Mucus (None) /hpf Microbiology - Last 24 Hours (Table) 08/15/23 14:50 Blood Culture Gram Stain - Preliminary Blood Blood Culture - Preliminary Molecular ID
[2023-08-16 12:22] LABS: Glucose,Whole Blood 292 mg/dL (70-110)
--- NOTE | 2023-08-16 16:05 | P.CN ---
Psychiatric Consult - . Consult date: 08/16/23 Consult:: 08/16/23 16:02 CONSULTATION Reason for consult: Not taking medications and spaced out identifying Data: The patient is 57 years, old, white female, who lives in [facility]. Reason for admission: Being spaced out and non-compliance with medications for 3 days. History of present illness: The patient was brought to the emergency department by EMS for not taking her medications and altered mentation. The patient has h/o UTI. After initial work-up the patient was transferred to medical floor for further management. department with After initial examination and other work-up, the patient was transferred to medical floor for further management. During this evaluation, the patient reported that she has been afraid of her neighbors and wants her cat to be taken away. She stated that her sister will not allow it. She is upset about it. The patients sister noted that the patient missed her medication for 3 days and has UTI. She believes the patient forgot to take medications due to confusion secondary to UTI. She noted that the patient sees Dr Treviño on a regular basis at [facility] and is closely monitored. She wanted patient to be reinstated on her medications. She wants to take her [facility] for her appointment. She is coming from [place]. She did patient to be admitted to psychiatric hospital. She stated that this has happened before. The patient has long history schizoaffective disorder. She was hospitalized in 2022 under similar conditions. First on Psych. unit and then transferred to medical floor and seen on psych consult. She rapidly improved after UTI stabilized and psych. meds were reinstituted. On leading questions denied depression, anxiety, hopelessness, worthlessness, suicidal or homicidal ideations. The patient denied symptoms of paranoia, or any other delusional thinking, A/V hallucinations. Current and past medications: History of past psychiatric illness: The patient history of schizoaffective disorder for long time. She was last hospitalized to this hospital in in 2014. Past medical history: COPD, DM, HTN, PE, GERD Substance abuse history: None MSE: Alert and attentive Orientation X3. Pleasant and cooperative. Psychomotor activity: Speech: Normal tone, and quantity, slight dysarthria was noted. Mood: Upset Affect: Appropriate SI or HI: None Thought content: Mild paranoia noted. Thought process: Normal Perceptual disturbance: Normal Cognition: Intact Judgement and Insight: Fair Diagnosis: Mild delirium secondary to UTI- resolving. Schizoaffective Disorder. REC: Reinstitute all home medications. The patient to be discharged to [facility] for out- patient care after medical stabilization. Tom Perez MD Psychiatry
[2023-08-16 17:21] LABS: Glucose,Whole Blood 158 mg/dL (70-110)
[2023-08-16 20:46] LABS: Glucose,Whole Blood 260 mg/dL (70-110)
--- NOTE | 2023-08-16 21:58 | P.CONS ---
History of Present Illness - Reason for Consult Consult date: 08/16/23 Klebsiella bacteremia Requesting physician: Juan Cerna - Chief Complaint Weakness and mental status changes x 1 day - History of Present Illness Patient is a 57-year-old female with a past medical history significant for diabetes mellitus COPD hypertension osteoarthritis PE seizure disorder brought into the hospital yesterday afternoon via EMS sent in by the home care nurse for possible medication noncompliance patient apparently has been taking medication about a week and did have episode of vomiting patient also have some urinary frequency however denies significant burning suprapubic or flank pain patient denies any headache or URI symptoms no chest pain shortness of breath or cough and no diarrhea on presentation to the hospital the patient was afebrile and no fever have been recorded subsequently patient was tachycardic but not hypotensive or hypoxic and no need for supplemental oxygen patient did have a white count of 7.0 creatinine 0.95 urine was positive urine drug screen is negative blood cultures came back positive with ESBL Klebsiella antibiotic has been switched over to meropenem infectious disease was consulted for further management of antibiotic therapy Review of Systems Positive point and negatives has been mentioned in the HPI, complete review of systems was performed and all other systems are negative Past Medical History Past Medical History: COPD, Diabetes Mellitus, GERD/Reflux, Hypertension, Osteoarthritis (OA), Pulmonary Embolus (PE), Seizure Disorder Additional Past Medical History / Comment(s): Hx of colon polyps, neuorgenic bladder, anemia, self caths at home, thyroid nodule, UTI with hospital admission september 2021- klebsiella treated with ceftin History of Any Multi-Drug Resistant Organisms: ESBL Year Discovered:: 12/01/22 MDRO Source:: Urine Past Surgical History: Back Surgery, Breast Surgery, Ear Surgery Additional Past Surgical History / Comment(s): hunter breast reduction, breast biopsy, bladder stimulator implant, skin grafts to ear Past Anesthesia/Blood Transfusion Reactions: No Reported Reaction Past Psychological History: Bipolar, Depression, Schizoaffective Disorder Smoking Status: Current some day smoker Past Alcohol Use History: None Reported Additional Past Alcohol Use History / Comment(s): smokes approx half a pack a day, on and off from age 16 Past Drug Use History: None Reported - Past Family History Father Family Medical History: Cancer Additional Family Medical History / Comment(s): lung Sister(s) Family Medical History: Cancer Additional Family Medical History / Comment(s): ovarian Medications and Allergies Home Medications Medication Instructions Recorded Confirmed Type Tamsulosin [Flomax] 0.4 mg PO AC-SUPPER 03/13/17 08/15/23 History Apixaban [Eliquis] 5 mg PO BID 10/24/20 08/15/23 History fluvoxaMINE MALEATE [Luvox] 100 mg PO HS 10/24/20 08/15/23 History Atorvastatin [Lipitor] 40 mg PO HS 10/19/21 08/15/23 History sitaGLIPtin [Januvia] 100 mg PO DAILY 03/19/22 08/15/23 History Albuterol Inhaler [Ventolin Hfa 2 puff INHALATION RT-QID PRN 11/02/22 08/15/23 History Inhaler] Ergocalciferol (Vitamin D2) 1,250 mcg PO Q14D 11/02/22 08/15/23 History [Drisdol (50,000 Iu)] Metoprolol Tartrate [Lopressor] 25 mg PO BID 11/02/22 08/15/23 History Budesonide/Formoterol Fumarate 2 puff INHALATION RT-BID 02/19/23 08/15/23 History [Symbicort 160-4.5 Mcg Inhaler] Glimepiride [Amaryl] 4 mg PO BID 02/19/23 08/15/23 History Magnesium Oxide [Mag-Ox] 800 mg PO DAILY 02/19/23 08/15/23 History cloZAPine [Clozaril] 250 mg PO HS 02/19/23 08/15/23 History LORazepam [Ativan] 0.5 mg PO BID PRN 04/18/23 08/15/23 History Pantoprazole Sodium [Protonix] 40 mg PO BID 04/18/23 08/15/23 History metFORMIN HCL ER [Glucophage XR] 500 mg PO BID 04/18/23 08/15/23 History fluPHENAZine decanoate [Prolixin 50 mg IM Q14D #0 04/21/23 08/15/23 Rx Decanoate] Ertapenem [INVanz] 1 gm IVPB Q24H #12 each 08/18/23 Rx Allergies Allergy/AdvReac Type Severity Reaction Status Date / Time haloperidol [From Haldol] AdvReac Muscles Verified 08/15/23 13:22 freeze up in arms and hands haloperidol lactate AdvReac Muscles Verified 08/15/23 13:22 [From Haldol] freeze up in arms and hands Physical Exam Vitals: Vital Signs Temp Pulse Pulse Resp BP BP Pulse Ox 08/16/23 07:00 97.2 F L 110 H 22 124/87 96 08/16/23 02:17 98.0 F 69 16 109/75 97 08/15/23 21:38 88 08/15/23 20:59 98.1 F 88 16 113/78 95 08/15/23 19:28 88 18 134/92 94 L 08/15/23 18:27 91 18 131/94 98 08/15/23 16:21 117 H 18 130/110 97 08/15/23 15:40 117 H 18 150/104 93 L 08/15/23 14:43 121 H 18 140/106 95 08/15/23 13:50 120 H 18 136/89 94 L 08/15/23 12:01 98.7 F 128 H 18 131/96 98 Intake and Output 08/15/23 08/16/23 08/16/23 22:59 06:59 14:59 Intake Total 118 Output Total 284 Balance -284 118 Intake: Oral 118 Output: Post Void Residual 284 Other: # Voids 0 2 Weight 74.843 kg GENERAL DESCRIPTION: Middle-aged female lying in bed, no distress. No tachypnea or accessory muscle of respiration use. HEENT: Shows Pallor , no scleral icterus. Oral mucous membrane is dry. No pharyngeal erythema or thrush NECK: Trachea central, no thyromegaly. LUNGS: Unlabored breathing. Clear to auscultation anteriorly. No wheeze or crackle. HEART: S1, S2, regular rate and rhythm. No loud murmur ABDOMEN: Soft, no tenderness , guarding or rigidity, no organomegaly EXTREMITIES: No edema of feet. SKIN: No rash, no masses palpable. NEUROLOGICAL: The patient is awake, mood and affect normal. Results CBC & Chem 7: 08/18/23 06:04 08/18/23 06:04 Labs: Abnormal Lab Results - Last 24 Hours (Table) 08/15/23 08/15/23 08/15/23 Range/Units 12:33 12:33 17:00 BUN 20 H (7-17) mg/dL Glucose 198 H (74-99) mg/dL POC Glucose (mg/dL) 125 H (70-110) mg/dL Urine Appearance Cloudy H (Clear) Urine Protein Trace H (Negative) Urine Blood Small H (Negative) Urine Nitrite Positive H (Negative) Ur Leukocyte Esterase Large H (Negative) Urine WBC 82 H (0-5) /hpf Urine WBC Clumps Moderate H (None) /hpf Urine Bacteria Occasional H (None) /hpf Urine Mucus Rare H (None) /hpf 08/15/23 08/15/23 08/16/23 Range/Units 19:31 21:13 05:40 BUN (7-17) mg/dL Glucose (74-99) mg/dL POC Glucose (mg/dL) 114 H 133 H 203 H (70-110) mg/dL Urine Appearance (Clear) Urine Protein (Negative) Urine Blood (Negative) Urine Nitrite (Negative) Ur Leukocyte Esterase (Negative) Urine WBC (0-5) /hpf Urine WBC Clumps (None) /hpf Urine Bacteria (None) /hpf Urine Mucus (None) /hpf Microbiology - Last 24 Hours (Table) 08/15/23 14:50 Blood Culture Gram Stain - Preliminary Blood Blood Culture - Preliminary Molecular ID Assessment and Plan (1) Bacteremia Status: Acute Code(s): R78.81 - BACTEREMIA SNOMED Code(s): 9610564 (2) Infection with ESBL Klebsiella oxytoca Status: Acute Code(s): A49.8 - OTHER BACTERIAL INFECTIONS OF UNSPECIFIED SITE; Z16.12 - EXTENDED SPECTRUM BETA LACTAMASE (ESBL) RESISTANCE SNOMED Code(s): 8844138942 (3) UTI (urinary tract infection) Status: Acute Code(s): N39.0 - URINARY TRACT INFECTION, SITE NOT SPECIFIED SNOMED Code(s): 22340790 Plan: 1patient with ESBL Klebsiella bacteremia source likely urinary in this patient who did have a urinary frequency positive UA and the source of this bacteremia 2-we will check ultrasound of the kidney and bladder to make no evidence of any obstructive uropathy or abscess 3-meropenem 1 g care doctor continue 4-patient will need midline and outpatient IV antibiotic therapy to finish treatment for her infection We will follow on clinical condition and cultures to further adjust medication if needed Thank you for this consultation we will follow the patient along with you Dictation was produced using [employer] software. please excuse any grammatical, word or spelling errors. Time with Patient: Greater than 30
[2023-08-17 05:48] LABS: Glucose,Whole Blood 226 mg/dL (70-110)
[2023-08-17 12:42] LABS: Glucose,Whole Blood 212 mg/dL (70-110)
--- NOTE | 2023-08-17 16:05 | P.PN ---
Subjective Progress Note Date: 08/17/23 57 year old M with PMH of COPD, DM, GERD, HTN, PE, seizure disorder, bipolar and schizoaffective disorder presents to the ED for behavioral disturbances. Sent in by home health care nurse. Limited history majority of history is obtained from documentation. Per RN, guardian suspects patient has been non compliant with her medications. She does report dysuria. She denies any other symptoms. In the ED she underwent extensive evaluation. BP 130/110, HR 117, RR 18, T 98.7F, 97% on RA. CBC and CMP performed significant for BUN 20, glu 198. Mag 1.7. TSH 1.13. UA positive nitrate. UDS negative. EKG sinus tachycardia. 08/15 Patient was seen and examined. More vocal today. She has no complaints. BCx + Klebsiella ESBL. Started on Meropenem 1g IV TID. 08/16 Patient was seen and examined. No acute events overnight. Discussed with Dr. Webb, plans for midline tomorrow and possible discharge on IV antibiotics. General: non toxic, no distress, appears at stated age Derm: warm, dry Head: atraumatic, normocephalic, symmetric Eyes: EOMI, no lid lag, anicteric sclera Mouth: no lip lesion, mucus membranes moist Cardiovascular: S1S2 regular, no murmur Lungs: Decreased BS bilateral, no rhonchi, no rales , no accessory muscle use Abdominal: soft, nontender to palpation, no guarding, no appreciable organome steven Ext: no gross muscle atrophy, no edema, no contractures Neuro: no focal neuro deficits Psych: Flat affect, AO x 2, slow to respond Based on my assessment of this patient, this patient meets a high complexity level of care. Acute metabolic encephalopathy multifactorial likely due to UTI, Klebsiella bacteremia, and non compliance with psychotropic medications Klebsiella bacteremia: Start Meropenem 1g IV TID. Repeat BCx. Consult ID. Sinus tachycardia: Does not meet sepsis criteria. Metoprolol 25 mg PO BID. Hypertension: Metoprolol as above. Diabetes mellitus with hyperglycemia History of bipolar and schizoaffective disorder: Mediation non compliance. Clozapine 250 mg PO QHS. Luvox 100 mg PO QHS. Ativan 0.5 mg PO BID PRN anxiety. Chronic COPD: Symbicort 2 puff BID. DuoNeb QID PRN for SOB/wheezing. GERD: Protonix 40 mg PO BID. History of PE: Eliquis 5 mg PO BID. CODE STATUS: FULL DVT Prophylaxis: Eliquis GI Prophylaxis: Protonix PO Designated medical POA if patient is not able to make medical decisions for themselves: I have reviewed the following senior compensation consultant notes: ID note, Psyc note. I have reviewed the results of the following tests: BCx, UCx. I have ordered the following tests: CBC, BMP, repeat BCx. I have discussed the care of this patient with the following independent historian: RN I have independently interpreted the following test below: I have discussed the management of this patient with the following physician: MARILYN Arias Objective - Vital Signs Vital signs: Vital Signs Temp 97.5 F L 08/17/23 13:00 Pulse 102 H 08/17/23 13:00 Resp 15 08/17/23 13:00 BP 113/78 08/17/23 13:00 Pulse Ox 96 08/17/23 13:00 FiO2 Intake & Output 08/16/23 08/17/23 08/17/23 18:59 06:59 18:59 Intake Total 594 60 Output Total 500 Balance 594 -500 60 Intake: Oral 594 60 Output: Urine 500 Uretheral (Taylor) 500 Other: Voiding Method Toilet Toilet Toilet Diaper Diaper Incontinent Incontinent Self-Catheterization Self-Catheterization # Voids 1 1 1 # Bowel Movements 1 1 - Labs CBC & Chem 7: 08/15/23 12:33 08/15/23 12:33 Labs: Abnormal Lab Results - Last 24 Hours (Table) 08/16/23 08/16/23 08/17/23 Range/Units 17:16 20:45 05:46 POC Glucose (mg/dL) 158 H 260 H 226 H (70-110) mg/dL 08/17/23 Range/Units 12:41 POC Glucose (mg/dL) 212 H (70-110) mg/dL Microbiology - Last 24 Hours (Table) 08/15/23 15:03 Blood Culture Gram Stain - Preliminary Blood Blood Culture - Preliminary Klebsiella pneumoniae 08/15/23 14:50 Blood Culture Gram Stain - Preliminary Blood Blood Culture - Preliminary Klebsiella pneumoniae Molecular ID 08/15/23 12:33 Urine Culture - Preliminary Urine,Voided Gram Neg Bacilli
[2023-08-17 17:22] LABS: Glucose,Whole Blood 257 mg/dL (70-110)
--- NOTE | 2023-08-17 17:42 | P.PN ---
Subjective Progress Note Date: 08/17/23 Principal diagnosis: Reason for follow with ESBL Klebsiella UTI and bacteremia Patient is a 57-year-old female with a past medical history significant for diabetes mellitus COPD hypertension osteoarthritis PE seizure disorder brought into the hospital for medication noncompliance patient also have a positive UA and blood cultures came back positive for ESBL Klebsiella. On today's evaluation that is 08/17/2023, Patient is afebrile this morning and patient is currently breathing comfortably on room air in no distress patient is sleepy did not answer any question no vomiting or diarrhea has been reported Objective - Vital Signs Vital signs: Vital Signs Temp 98.4 F 08/17/23 07:00 Pulse 100 08/17/23 07:00 Resp 16 08/17/23 07:00 BP 130/87 08/17/23 07:00 Pulse Ox 98 08/17/23 07:00 FiO2 Intake & Output 08/16/23 08/17/23 08/17/23 18:59 06:59 18:59 Intake Total 594 60 Output Total 500 Balance 594 -500 60 Intake: Oral 594 60 Output: Urine 500 Uretheral (Taylor) 500 Other: Voiding Method Toilet Toilet Toilet Diaper Diaper Incontinent Incontinent Self-Catheterization Self-Catheterization # Voids 1 1 1 # Bowel Movements 1 - Exam GENERAL DESCRIPTION: middle-age female lying in bed in no distress RESPIRATORY SYSTEM: Unlabored breathing , decreased breath sounds at bases HEART: S1 S2 regular rate and rhythm , ABDOMEN: Soft , no tenderness EXTREMITIES: No edema feet - Labs CBC & Chem 7: 08/15/23 12:33 08/15/23 12:33 Labs: Abnormal Lab Results - Last 24 Hours (Table) 08/16/23 08/16/23 08/16/23 Range/Units 12:19 17:16 20:45 POC Glucose (mg/dL) 292 H 158 H 260 H (70-110) mg/dL 08/17/23 Range/Units 05:46 POC Glucose (mg/dL) 226 H (70-110) mg/dL Microbiology - Last 24 Hours (Table) 08/15/23 15:03 Blood Culture Gram Stain - Preliminary Blood Blood Culture - Preliminary Klebsiella pneumoniae 08/15/23 14:50 Blood Culture Gram Stain - Preliminary Blood Blood Culture - Preliminary Klebsiella pneumoniae Molecular ID 08/15/23 12:33 Urine Culture - Preliminary Urine,Voided Gram Neg Bacilli Assessment and Plan (1) Bacteremia Current Visit: Yes Status: Acute Code(s): R78.81 - BACTEREMIA SNOMED Code(s): 3586287 (2) UTI (urinary tract infection) Current Visit: Yes Status: Acute Code(s): N39.0 - URINARY TRACT INFECTION, SITE NOT SPECIFIED SNOMED Code(s): 43823111 (3) Infection with ESBL Klebsiella oxytoca Current Visit: No Status: Acute Code(s): A49.8 - OTHER BACTERIAL INFECTIONS OF UNSPECIFIED SITE; Z16.12 - EXTENDED SPECTRUM BETA LACTAMASE (ESBL) RESISTANCE SNOMED Code(s): 1464655700 Plan: 1patient with ESBL Klebsiella bacteremia source likely urinary in this patient who did have a urinary frequency positive UA and the source of this bacteremia 2- ultrasound of the kidney and bladder no evidence of any obstructive uropathy or abscess 3-patient to continue with meropenem 1 g every 8 hours can get a midline in a.m. and a 12-day course of Invanz 1 g daily on discharge to finish her course of therapy discussed with admitting physician Dictation was produced using [employer] dictation software. please excuse any grammatical, word or spelling errors.
[2023-08-17 20:37] LABS: Glucose,Whole Blood 223 mg/dL (70-110)
[2023-08-18 05:31] LABS: Glucose,Whole Blood 198 mg/dL (70-110)
[2023-08-18 06:59] LABS: HCT 38.5 % (34.0-46.0); HGB 11.9 gm/dL (11.4-16.0); MCH 26.8 pg (25.0-35.0); MCHC 30.9 g/dL (31.0-37.0); MCV 86.6 fL (80.0-100.0); Mean Platelet Volume 8.2; Platelet Count 151 k/uL (150-450); RBC 4.45 m/uL (3.80-5.40); RDW 15.7 % (11.5-15.5); WBC 5.2 k/uL (3.8-10.6)
[2023-08-18 07:34] VITALS: BP 140/91; PULSE 88; RESP 15; TEMP 98.3
[2023-08-18 07:35] LABS: African American GFR (CKD) 65 (>60 ml/min/1.73 sqM); Anion Gap 5 mmol/L; Blood Urea Nitrogen 16 mg/dL (7-17); Carbon Dioxide 28 mmol/L (22-30); Chloride 107 mmol/L (98-107); Glucose 192 mg/dL (74-99); Non-African American GFR(CKD) 56 (>60 ml/min/1.73 sqM); Potassium 4.2 mmol/L (3.5-5.1); Sodium 140 mmol/L (137-145)
--- NOTE | 2023-08-18 11:42 | P.DS ---
Providers Date of admission: 08/15/23 14:26 Expected date of discharge: 08/18/23 Attending physician: Christian Galvan MD Consults: 08/15/23 15:18 Consult Physician Routine Consulting Provider: Fredy Richter Consult Reason/Comments: Psychosis Do you want consulting provider notified?: Yes 08/16/23 09:04 Consult Physician Routine Consulting Provider: Hank Webb Consult Reason/Comments: Klebsiella bacteremia ESBL Do you want consulting provider notified?: Yes Primary care physician: [facility] Course: 57 year old M with PMH of COPD, DM, GERD, HTN, PE, seizure disorder, bipolar and schizoaffective disorder presents to the ED for behavioral disturbances. Sent in by home health care nurse. Limited history majority of history is obtained from documentation. Per RN, guardian suspects patient has been non compliant with her medications. She does report dysuria. She denies any other symptoms. In the ED she underwent extensive evaluation. BP 130/110, HR 117, RR 18, T 98.7F, 97% on RA. CBC and CMP performed significant for BUN 20, glu 198. Mag 1.7. TSH 1.13. UA positive nitrate. UDS negative. EKG sinus tachycardia. 08/15 Patient was seen and examined. More vocal today. She has no complaints. BCx + Klebsiella ESBL. Started on Meropenem 1g IV TID. 08/16 Patient was seen and examined. No acute events overnight. Discussed with Dr. Webb, plans for midline tomorrow and possible discharge on IV antibiotics. 08/17 Patient was seen and examined. No complaints today. Discussed with [facility] provider, plans for midline today and possible discharge on IV Invanz. CBC shows no leukocytosis or anemia. BMP shows Cr 1.09 and glu 192. Renal US shows no renal abscess. General: non toxic, no distress, appears at stated age Derm: warm, dry Head: atraumatic, normocephalic, symmetric Eyes: EOMI, no lid lag, anicteric sclera Mouth: no lip lesion, mucus membranes moist Cardiovascular: S1S2 regular, no murmur Lungs: Decreased BS bilateral, no rhonchi, no rales , no accessory muscle use Abdominal: soft, nontender to palpation, no guarding, no appreciable organomegaly Ext: no gross muscle atrophy, no edema, no contractures Neuro: no focal neuro deficits Psych: Flat affect, AO x 2, slow to respond Discharge Diagnosis: Acute metabolic encephalopathy multifactorial likely due to UTI, Klebsiella bacteremia, and non compliance with psychotropic medications Klebsiella bacteremia Sinus tachycardia Hypertension Diabetes mellitus with hyperglycemia History of bipolar and schizoaffective disorder Chronic COPD GERD History of PE This complex discharge took 35 minutes to complete. Patient Condition at Discharge: Stable Plan - Discharge Summary Discharge Rx Participant: No New Discharge Prescriptions: No Action Tamsulosin [Flomax] 0.4 mg PO AC-SUPPER Apixaban [Eliquis] 5 mg PO BID Atorvastatin [Lipitor] 40 mg PO HS sitaGLIPtin [Januvia] 100 mg PO DAILY Ergocalciferol (Vitamin D2) [Drisdol (50,000 Iu)] 1,250 mcg PO Q14D Metoprolol Tartrate [Lopressor] 25 mg PO BID metFORMIN HCL ER [Glucophage XR] 500 mg PO BID fluPHENAZine decanoate [Prolixin Decanoate] 50 mg IM Q14D #0 fluvoxaMINE MALEATE [Luvox] 100 mg PO HS Albuterol Inhaler [Ventolin Hfa Inhaler] 2 puff INHALATION RT-QID PRN PRN Reason: Shortness Of Breath Glimepiride [Amaryl] 4 mg PO BID cloZAPine [Clozaril] 250 mg PO HS Budesonide/Formoterol Fumarate [Symbicort 160-4.5 Mcg Inhaler] 2 puff INHALATION RT-BID Magnesium Oxide [Mag-Ox] 800 mg PO DAILY Pantoprazole Sodium [Protonix] 40 mg PO BID LORazepam [Ativan] 0.5 mg PO BID PRN PRN Reason: Anxiety Cefdinir [Omnicef] 300 mg PO BID Discharge Medication List Tamsulosin [Flomax] 0.4 mg PO AC-SUPPER 03/13/17 [History] Apixaban [Eliquis] 5 mg PO BID 10/24/20 [History] fluvoxaMINE MALEATE [Luvox] 100 mg PO HS 10/24/20 [History] Atorvastatin [Lipitor] 40 mg PO HS 10/19/21 [History] sitaGLIPtin [Januvia] 100 mg PO DAILY 03/19/22 [History] Albuterol Inhaler [Ventolin Hfa Inhaler] 2 puff INHALATION RT-QID PRN 11/02/22 [History] Ergocalciferol (Vitamin D2) [Drisdol (50,000 Iu)] 1,250 mcg PO Q14D 11/02/22 [History] Metoprolol Tartrate [Lopressor] 25 mg PO BID 11/02/22 [History] Budesonide/Formoterol Fumarate [Symbicort 160-4.5 Mcg Inhaler] 2 puff INHALATION RT-BID 02/19/23 [History] Glimepiride [Amaryl] 4 mg PO BID 02/19/23 [History] Magnesium Oxide [Mag-Ox] 800 mg PO DAILY 02/19/23 [History] cloZAPine [Clozaril] 250 mg PO HS 02/19/23 [History] LORazepam [Ativan] 0.5 mg PO BID PRN 04/18/23 [History] Pantoprazole Sodium [Protonix] 40 mg PO BID 04/18/23 [History] metFORMIN HCL ER [Glucophage XR] 500 mg PO BID 04/18/23 [History] fluPHENAZine decanoate [Prolixin Decanoate] 50 mg IM Q14D #0 04/21/23 [Rx] Cefdinir [Omnicef] 300 mg PO BID 08/15/23 [History] Follow up Appointment(s)/Referral(s): Gamal Stuart DO [Primary Care Provider] - 1-2 days ProviderMARILYN [NON-STAFF] - As Needed (ZACARIAS RN - P: [phone] PROVIDING IV ABX IN THE HOME TRANSPORT HOME IF PRIOR TO 1530)
[2023-08-18] MEDS: ERTAPENEM 1 GM in SODIUM CHLORIDE 0.9% 50 ML IVPB STA (11:59)
[2023-08-18 12:12] LABS: Glucose,Whole Blood 285 mg/dL (70-110)
--- NOTE | 2023-08-18 17:55 | P.PN ---
Subjective Progress Note Date: 08/18/23 Principal diagnosis: Reason for follow with ESBL Klebsiella UTI and bacteremia Patient is a 57-year-old female with a past medical history significant for diabetes mellitus COPD hypertension osteoarthritis PE seizure disorder brought into the hospital for medication noncompliance patient also have a positive UA and blood cultures came back positive for ESBL Klebsiella. On today's evaluation that is 08/18/2023,the patient denies any fever or any chills, patient is breathing comfortably on room air, the patient denies chest pain shortness of breath and no significant cough, patient denies abdominal pain, no nausea vomiting or diarrhea. Patient mention overall feeling better. Patient white count is 5.2, creatinine 1.09 blood culture repeat has been negative so far Objective - Vital Signs Vital signs: Vital Signs Temp 98.3 F 08/18/23 07:15 Pulse 88 08/18/23 07:15 Resp 15 08/18/23 07:15 BP 140/91 08/18/23 07:15 Pulse Ox 94 L 08/18/23 07:15 FiO2 Intake & Output 08/17/23 08/18/23 08/18/23 18:59 06:59 18:59 Intake Total 296 118 Output Total 300 Balance 296 -182 Intake: Oral 296 118 Output: Post Void Residual 300 Other: Voiding Method Toilet Toilet Toilet Diaper Diaper Diaper Incontinent Incontinent Incontinent Self-Catheterization # Voids 1 2 1 # Bowel Movements 1 2 1 - Exam GENERAL DESCRIPTION: middle-age female lying in bed in no distress RESPIRATORY SYSTEM: Unlabored breathing , decreased breath sounds at bases HEART: S1 S2 regular rate and rhythm , ABDOMEN: Soft , no tenderness EXTREMITIES: No edema feet - Labs CBC & Chem 7: 08/18/23 06:04 08/18/23 06:04 Labs: Abnormal Lab Results - Last 24 Hours (Table) 08/17/23 08/17/23 08/18/23 Range/Units 17:20 20:31 05:29 MCHC (31.0-37.0) g/dL RDW (11.5-15.5) % Creatinine (0.52-1.04) mg/dL Glucose (74-99) mg/dL POC Glucose (mg/dL) 257 H 223 H 198 H (70-110) mg/dL 08/18/23 08/18/23 08/18/23 Range/Units 06:04 06:04 12:10 MCHC 30.9 L (31.0-37.0) g/dL RDW 15.7 H (11.5-15.5) % Creatinine 1.09 H (0.52-1.04) mg/dL Glucose 192 H (74-99) mg/dL POC Glucose (mg/dL) 285 H (70-110) mg/dL Microbiology - Last 24 Hours (Table) 08/17/23 05:56 Blood Culture - Preliminary Blood 08/17/23 05:51 Blood Culture - Preliminary Blood 08/15/23 15:03 Blood Culture Gram Stain - Final Blood Blood Culture - Final Klebsiella pneumoniae 08/15/23 14:50 Blood Culture Gram Stain - Final Blood Blood Culture - Final Klebsiella pneumoniae Molecular ID 08/15/23 12:33 Urine Culture - Final Urine,Voided Klebsiella pneumoniae Assessment and Plan (1) Bacteremia Status: Acute Code(s): R78.81 - BACTEREMIA SNOMED Code(s): 5081121 (2) UTI (urinary tract infection) Status: Acute Code(s): N39.0 - URINARY TRACT INFECTION, SITE NOT SPECIFIED SNOMED Code(s): 36128905 (3) Infection with ESBL Klebsiella oxytoca Status: Acute Code(s): A49.8 - OTHER BACTERIAL INFECTIONS OF UNSPECIFIED SITE; Z16.12 - EXTENDED SPECTRUM BETA LACTAMASE (ESBL) RESISTANCE SNOMED Code(s): 2785707238 Plan: 1patient with ESBL Klebsiella bacteremia source likely urinary in this patient who did have a urinary frequency positive UA and the source of this bacteremia 2- ultrasound of the kidney and bladder no evidence of any obstructive uropathy or abscess 3-patient repeat blood culture has been negative so far patient did get a midline plan is to do therapy Invanz for probably for 12 days to finish a 2-week course of therapy Dictation was produced using [employer] software. please excuse any grammatical, word or spelling errors. Time with Patient: Less than 30
--- NOTE | 2023-08-21 13:55 | CDI ---
Documentation Clarification Form Date: 08/21/2023 01:30:25 PM From: Luanne Mcnally RN, CCDS Phone: [phone] Admit Date: 08/15/2023 02:26:00 PM Patient Name: Veronique Dukes Visit Number: [id number] Discharge Date: 08/18/2023 12:35:00 PM ATTENTION: The Clinical Documentation Specialists (CDI) and [facility] Coding Staff appreciate your assistance in clarifying documentation. Please respond to the clarification below the line at the bottom and electronically sign. The CDI & [facility] Coding staff will review the response and follow-up if needed. Please note: Queries are made part of the Legal Health Record. If you have any questions, please contact the author of this message via ITS. Dr. Juan Cerna Klebsiella bacteremia and UTI is documented in the progress notes and the patient self-cath's at home per the ED note and the H&P. Additional clarification regarding the etiology of the UTI is requested. History/Risk Factors: neurogenic bladder with self catheterization at home, frequent UTI's, anemia, bipolar, depression and schizoaffective disorder. Clinical Indicators: H&P: "history of colon polyps, neurogenic bladder, anemia, self caths at home." 08/14 Urinalysis: cloudy, small blood, positive nitrite, large leukocyte esterase, 82 WBC, WBC clumps, urine bacteria 08/14 Urine culture: klebsiella pneumoniae 08/14 blood culture: klebsiella pneumoniae 08/16 IM: "Self-Catheterization ." Treatment: 1L 0.9 NS IV bolus x1 on 08/14; IV Rocephin 2gm x1 on 08/14; IV Ertapenem 1gm x1 on 08/17; IV Meropenem 1gm Q8H 08/15-08/17 Please clarify the etiology of the UTI, if known: [x ] Self-catheterizations [ ] UTI not related to self-catheterizations [ ] Other condition, please specify [ ] Unable to determine MTDD
== END 2023-08-18 12:35 | disposition home or self-care (01) | DRG 698 ==
LOC: EC 11:59 → 6NMEDSUR 14:25 → OBSVTOIN 14:26 → 6NMEDSUR 20:14
PROVIDERS: ADMIT Student in an Organized Health Care Education/Training Program; ATTEND Student in an Organized Health Care Education/Training Program
PROC: 05HB33Z Insertion of Infusion Device into Right Basilic Vein, Percutaneous Approach (ICD-10-PCS; principal; 2023-08-18 10:35)
DX: T83.598A Infection and inflammatory reaction due to other prosthetic device, implant and graft in urinary system, initial encounter (principal); G93.41 Metabolic encephalopathy; N39.0 Urinary tract infection, site not specified; Z16.12 Extended spectrum beta lactamase (ESBL) resistance; R78.81 Bacteremia; E78.81 Lipoid dermatoarthritis; Z91.148 Patient's other noncompliance with medication regimen for other reason; Z79.51 Long term (current) use of inhaled steroids; Z86.711 Personal history of pulmonary embolism; K21.9 Gastro-esophageal reflux disease without esophagitis; Z79.899 Other long term (current) drug therapy; F25.9 Schizoaffective disorder, unspecified; J44.9 Chronic obstructive pulmonary disease, unspecified; B96.1 Klebsiella pneumoniae [K. pneumoniae] as the cause of diseases classified elsewhere; B96.89 Other specified bacterial agents as the cause of diseases classified elsewhere; F17.210 Nicotine dependence, cigarettes, uncomplicated; F60.3 Borderline personality disorder; I10 Essential (primary) hypertension; Z76.5 Malingerer [conscious simulation]; Z79.01 Long term (current) use of anticoagulants; Z79.84 Long term (current) use of oral hypoglycemic drugs; Z86.19 Personal history of other infectious and parasitic diseases; Z87.19 Personal history of other diseases of the digestive system; Z87.440 Personal history of urinary (tract) infections; Z91.199 Patient's noncompliance with other medical treatment and regimen due to unspecified reason; M19.90 Unspecified osteoarthritis, unspecified site; R00.0 Tachycardia, unspecified; Y84.6 Urinary catheterization as the cause of abnormal reaction of the patient, or of later complication, without mention of misadventure at the time of the procedure
CPT/HCPCS: 36410; 36415; 51798; 76770; 76937; 80048; 80053; 80306; 81001; 82075; 83735; 84443; 85025; 85027; 87040; 87077; 87086; 87186; 93005; 94640; 96361; 96365; 99285

== ENCOUNTER 2024-04-19 10:36 | Day surgery (SDC) | payer OTHER ==
[2024-04-09 16:25] VITALS: BMI 30.6
--- NOTE | 2024-04-19 08:47 | P.HPIHPCON ---
History of Present Illness H&P Date: 04/19/24 Chief Complaint: Urinary retention This is a 58-year-old female with history of urinary retention currently being managed with CIC. She wants to discontinue CIC and proceed with suprapubic tube placement. She is aware of the risk which include but not limited to bleeding, infection, injury to the bowel. Discussed also with SP tube there is higher risk of recurrent UTIs. She understood all the risk and agreed to proceed Consent for Procedure: I have explained the operation/procedure to the patient, including the risks, benefits, side effects, alternative therapies (including not receiving the proposed treatment or service), the likelihood of the patient achieving his/her goals, and potential recuperation problems for the procedure/sedation/analgesia, as well as any blood products, if indicated. I also explained to the patient the risks, benefits and side effects of the alternatives, as well as the risks related to not receiving the proposed procedure, care, treatment, or services. Past Medical History Past Medical History: Cancer, COPD, CVA/TIA, Diabetes Mellitus, GERD/Reflux, Hearing Disorder / Deafness, Hyperlipidemia, Hypertension, Osteoarthritis (OA), Pulmonary Embolus (PE), Seizure Disorder, Thyroid Disorder Additional Past Medical History / Comment(s): Hx TIA about 1-2 yrs ago, no residual effects, bilateral hearing aid use, hx of colon polyps, anemia, neuorgenic bladder, self caths at home, thyroid nodule, frequent UTI's, hx "seizure X1 when hot dog got caught in my throat 40 yrs ago", skin cancer, hs back problems. History of Any Multi-Drug Resistant Organisms: ESBL Date of last positivie culture/infection: 08/15/23 MDRO Source:: BLOOD; Urine Past Surgical History: Back Surgery, Breast Surgery, Ear Surgery Additional Past Surgical History / Comment(s): Bilateral breast reduction, breast biopsy, bladder stimulator implant, skin grafts to ear, discectomy. Past Anesthesia/Blood Transfusion Reactions: No Reported Reaction Smoking Status: Current some day smoker - Past Family History Father Family Medical History: Cancer Additional Family Medical History / Comment(s): lung Sister(s) Family Medical History: Cancer Additional Family Medical History / Comment(s): Ovarian cancer. Medications and Allergies Home Medications Medication Instructions Recorded Confirmed Type Tamsulosin [Flomax] 0.4 mg PO DAILY 03/13/17 04/09/24 History fluvoxaMINE MALEATE [Luvox] 100 mg PO HS 10/24/20 04/09/24 History Atorvastatin [Lipitor] 40 mg PO DAILY 10/19/21 04/09/24 History sitaGLIPtin [Januvia] 100 mg PO QAM 03/19/22 04/09/24 History Albuterol Inhaler [Ventolin Hfa 2 puff INHALATION QID 11/02/22 04/09/24 History Inhaler] Ergocalciferol (Vitamin D2) 1,250 mcg PO Q14D 11/02/22 04/09/24 History [Drisdol (50,000 Iu)] Magnesium Oxide [Mag-Ox] 800 mg PO QAM 02/19/23 04/09/24 History cloZAPine [Clozaril] 250 mg PO HS 02/19/23 04/09/24 History Pantoprazole Sodium [Protonix] 40 mg PO DAILY 04/18/23 04/09/24 History metFORMIN HCL ER [Glucophage XR] 1,000 mg PO DAILY 04/18/23 04/09/24 History fluPHENAZine decanoate [Prolixin 50 mg IM Q14D #0 04/21/23 04/09/24 Rx Decanoate] Ammonium Lactate [Amlactin] 1 applic TOPICAL DAILY 03/06/24 04/09/24 History Budesonide-Formot 160-4.5 Mcg 2 puff INHALATION BID 03/06/24 04/09/24 History [Symbicort 160-4.5 Mcg Inhaler] Metoprolol Succinate [Metoprolol 25 mg PO DAILY 03/06/24 04/09/24 History Succinate ER] Rivaroxaban [Xarelto] 20 mg PO DAILY 03/06/24 04/09/24 History glipiZIDE [glipiZIDE ER] 10 mg PO DAILY 03/06/24 04/09/24 History Acetaminophen Tab [Tylenol] 650 mg PO Q4H PRN 04/09/24 04/09/24 History Allergies Allergy/AdvReac Type Severity Reaction Status Date / Time haloperidol [From Haldol] Allergy Muscles Verified 04/09/24 16:09 freeze up in arms and hands haloperidol lactate Allergy Muscles Verified 04/09/24 16:09 [From Haldol] freeze up in arms and hands Surgical - Exam - General no distress, no pain - Eyes normal ocular movement, no pale - ENT normal nares, normal mucosa - Respiratory normal expansion, normal respiratory effort - Abdomen Abdomen: soft, non tender Assessment and Plan Assessment: OR for cystoscopy and a suprapubic tube placement
[~2024-04-19 10:36] MED LIST changes: +HYDROmorphone 0.5 MG/0.5 ML SYRINGE IVP PRN; -LACTATED RINGERS 1,000 ML IV SCH; +MIDAZOLAM 2 MG/2 ML VIAL IV PRN
[2024-04-19] MEDS: IV FLUID CONTINUATION 1,000 ML IV ONE (11:04)
[2024-04-19] MEDS: LACTATED RINGERS 1,000 ML IV SCH (11:04)
[2024-04-19] MEDS: DEXAMETHASONE SOD PHOSPHATE 4 MG/ML 1 ML VIAL IV ONE (11:18)
[2024-04-19] MEDS: SCOPOLAMINE 1 MG/72 HR PATCH TRANSDERM ONE (11:18)
[2024-04-19] MEDS: ONDANSETRON 4 MG/2 ML VIAL IVP ONE (11:18)
[2024-04-19 11:28] LABS: Glucose,Whole Blood 202 mg/dL (70-110)
[2024-04-19] MEDS ORDERED: PROPOFOL 10 MG/ML 20 ML VIAL IV ONE (11:46)
[2024-04-19] MEDS ORDERED: SUCCINYLCHOLINE CHLORIDE 200 MG/10 ML VIAL IV ONE (11:46)
[2024-04-19] MEDS ORDERED: fentaNYL (PF) 50 MCG/ML 2 ML AMP ONE (11:46)
[2024-04-19] MEDS ORDERED: PHENYLEPHRINE 10 MG/ML VIAL ONE (11:46)
[2024-04-19] MEDS ORDERED: MIDAZOLAM 2 MG/2 ML VIAL ONE (11:46)
[2024-04-19] MEDS: BUPIVACAINE (PF) 0.5% 30 ML VIAL SQ ONE ×2 (12:10)
--- NOTE | 2024-04-19 12:43 | P.OP ---
Date of Procedure: 04/19/24 Preoperative Diagnosis: Urinary retention Postoperative Diagnosis: Same Procedure(s) Performed: Cystoscopy and a suprapubic tube placement Implants: None Anesthesia: KAYLINA Surgeon: Chevy Garcia Estimated Blood Loss (ml): 5 Pathology: none sent Condition: stable Disposition: PACU Indications for Procedure: This is a 58-year-old female with history of urinary retention currently being managed with CIC. She wants to discontinue CIC and proceed with suprapubic tube placement. She is aware of the risk which include but not limited to bleeding, infection, injury to the bowel. Discussed also with SP tube there is higher risk of recurrent UTIs. She understood all the risk and agreed to proceed Description of Procedure: Patient brought to the operating room, general anesthesia was induced. She was prepped and draped in sterile fashion placed in dorsolithotomy position. Cystoscopy fitted with a 21 Ken[place] sheath was inserted per urethra, cystoscopy was performed showed normality within the bladder. Attention was then carried to the suprapubic tube. The patient was placed in Trendelenburg position, bladder was filled with 500 mL of saline. Stayinh 1 fingerbreadth above the pubic bone next using the Stroodle SP tube set a spinal needle was advanced through the skin and into the bladder, with the return of clear urine. This time a wire was advanced through the needle and the needle was removed with the wire in p lace. Next the tract was dilated using the 8 and 10 Kenyan dilators. Next using the obturator and the sheath of the Cook set this was advanced over the wire and into the bladder. Next a 14 Kenyan silicone catheter was advanced through the sheath with a return of clear urine. At this point the tube was secured to the skin using 2-0 silk. Sterile dressing was placed over the incision. Patient was awakened from anesthesia and taken to recovery in stable condition
[2024-04-19 13:01] VITALS: TEMP 97
[2024-04-19 14:08] VITALS: RESP 18
[2024-04-19 14:45] VITALS: BP 136/85; PULSE 110
== END 2024-04-19 15:24 | disposition home or self-care (01) ==
LOC: OR 10:36
PROVIDERS: ATTEND Urology
DX: R33.9 Retention of urine, unspecified (principal); E78.5 Hyperlipidemia, unspecified; E11.9 Type 2 diabetes mellitus without complications; G40.909 Epilepsy, unspecified, not intractable, without status epilepticus; I10 Essential (primary) hypertension; J44.9 Chronic obstructive pulmonary disease, unspecified; K21.9 Gastro-esophageal reflux disease without esophagitis; Z86.73 Personal history of transient ischemic attack (TIA), and cerebral infarction without residual deficits; F17.200 Nicotine dependence, unspecified, uncomplicated; Z79.51 Long term (current) use of inhaled steroids; Z79.84 Long term (current) use of oral hypoglycemic drugs; Z79.01 Long term (current) use of anticoagulants; Z88.8 Allergy status to other drugs, medicaments and biological substances
CPT/HCPCS: 52281; J1100; J0690; J2405; J0665

== ENCOUNTER → 2024-08-20 | Outpatient (CLI) | payer OTHER | END | disposition home or self-care (01) | LOC: RADMAMWWP 09:37 | PROVIDERS: ATTEND Internal Medicine Hospice and Palliative Medicine | DX: Z53.9 Procedure and treatment not carried out, unspecified reason (principal) ==